=== PATIENT | female | born 1945 | race Caucasian/White ===

== ENCOUNTER 2019-03-10 08:48 | Inpatient (IN) | payer MEDICARE, SELFPAY ==
[2019-03-10] VITALS (8 sets, daily range): BP systolic 124–157; BP diastolic 51–75; PULSE 60–91; RESP 16–26; TEMP 36.8–37.4; O2SAT 98–100; BMI 33.5; BMI 32.5
--- NOTE | 2019-03-10 09:08 | CT_ITS ---
STUDY: CT BRAIN WITHOUT CONTRAST REASON FOR EXAM: Female, 73 years old. 2 week history of intermittent dizziness and nausea and vomiting. RADIATION DOSAGE (If Supplied By Facility): CTDIvol = ( 44.99 ) mGy, DLP = ( 812.98 ) mGycm TECHNIQUE: Transaxial CT imaging of the brain was performed without administration of intravenous contrast material. Individualized dose optimization techniques were used for this CT. COMPARISON: No relevant priors. FINDINGS: Normal soft tissue structures. Normal calvarium. There is mild cerebral atrophy with widening of the extra-axial spaces and ventricular dilatation. There are areas of decreased attenuation within the white matter tracts of the supratentorial brain, consistent with microvascular disease changes. 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 Normal brainstem. Normal cerebellum. There is no intracranial hemorrhage. There are no findings of an acute ischemic infarction. Normal visualized paranasal sinuses. CT/Brain/Head without Contrast IMPRESSION: Chronic involutional changes of the brain. Electronically Signed: Buddy Dela Cruz, at 10:33 EDT , Service support ,
--- NOTE | 2019-03-10 09:08 | EKG12_ITS ---
Test Reason : DIZZINESS Blood Pressure : / mmHG Vent. Rate : 094 BPM Atrial Rate : 094 BPM P-R Int : 148 ms QRS Dur : 082 ms QT Int : 336 ms P-R-T Axes : 059 012 031 degrees QTc Int : 420 ms Normal sinus rhythm Low voltage QRS Nonspecific ST abnormality Abnormal ECG Confirmed by MOMO SUNG, SANDRA ([id number]), editor at large GARRETT MAYORGA ([id number] on 03/13/2019 10:50:57 AM Referred By: Robbie Woodward Confirmed By:SANDRA BARR MD
--- NOTE | 2019-03-10 09:08 | RAD_ITS ---
STUDY: X-RAY CHEST REASON FOR EXAM: Female, 73 years old. 1 month history of dizziness. TECHNIQUE: Single AP portable view of the chest. COMPARISON: Comparison is made with prior study dated February 14, 2014. FINDINGS: EKG electrodes are seen. The lungs are clear and expanded. Scattered calcified granulomas. There is no demonstrated pleural abnormality. Normal size heart. Normal mediastinum and victor m. Normal visualized pulmonary arteries. There is atherosclerotic calcification of the aortic arch with tortuosity. There are diffuse degenerative changes of the visualized thoracic spine. Normal visualized ribs, clavicles, and shoulders. There is no demonstrated abnormality of the visualized soft tissue structures of the upper abdomen. RAD/Chest 1 View IMPRESSION: No acute abnormality is seen. Electronically Signed: Buddy Dela Cruz, at 10:33 EDT , Service support ,
--- NOTE | 2019-03-10 09:40 | ED.VIS.GEN ---
History of Present Illness Chief Complaint: Dizziness Narrative: Patient presenting for evaluation secondary to dizziness. Patient states that over the course the last 3 weeks she has been dealing with a dizziness. She states that associated with gait instability and a feeling of spinning. She reports that 3 weeks ago it was a relatively sudden onset it was associated with vomiting, but now it has basically been persistent over the course of the last 3 weeks. Patient denies any visual changes numbness or weakness. She denies any speech difficulty or confusion. She denies any headaches or head injuries. Patient does states that she feels that it gets somewhat better when she closes her eyes, but is not really changed by different positions. Patient thought initially that this was secondary to a change in her IBS medication. She typically was on dicyclomine, and went on Elavil. After the onset of the dizziness she went back on her dicyclomine, but it did not seem to alleviate the symptoms. Patient denies any history of hypertension hyperlipidemia diabetes heart attack stroke or smoking. Review of systems otherwise negative. Past Medical History - Allergies and Home Meds Allergies/Adverse Reactions: Allergies codeine Allergy (Verified 03/10/19 08:49) Nausea ANESTHETICS Allergy (Uncoded 03/10/19 08:49) Vomiting Primary Care Physician: Nohemi Cardoza MD [Primary Care Provider] - Past Medical History: - - Irritable bowel syndrome Surgical History: appendectomy, cholecystectomy, hysterectomy, tonsillectomy, - - Salpingoophorectomy Smoking Status: Never smoker - Family History Maternal Family History: Reports: No pertinent history Paternal Family History: Reports: No pertinent history Review of Systems All systems negative except as indicated General: Denies: Fever Eyes: Denies: Visual changes - bilaterally ENT: Denies: Bilateral ear pain Cardiovascular: Denies: Chest pain Respiratory: Denies: Dyspnea Gastrointestinal: Reports: Nausea, Vomiting Neurological: Reports: - - Dizziness. Denies: Headache, Weakness, Parasthesia, Numbness Physical Exam Vital Signs/Narrative: Vital Signs Temp Pulse Resp BP Pulse Ox 03/10/19 08:49 98.3 F 91 16 129/62 H 98 Inital Vital Signs reviewed: Yes General: Well nourished, Well developed, No Acute Distress Head: Normocephalic, Atraumatic Eyes: Perrl, EOMI ENT: Moist mucous membranes, No rhinorrhea, TM's clear Neck: Supple, Nontender Cardiovascular: Regular rate, Regular rhythm, No murmurs, - - 2+ radial pulses bilaterally symmetric Respiratory: No distress, CTA bilaterally, Chest nontender Abdomen: Soft, Nontender, Nondistended, Normal bowel sounds Back: Nontender, Normal Inspection Extremities: Nontender, No edema Skin: Normal color, No rash Neurological: Alert, Oriented x3, Cranial nerves II-XII grossly intact, Normal Strength, Normal Sensation, - - Cerebellar testing was normal including [id number], [id number], dysdiadochokinesia. Romberg was negative. Patient has no truncal ataxia. Patient has a slow deliberate gait. Psychological: Normal affect, Normal Mood Diagnostic/Tx/Re-eval - EKG Initial EKG Interpretation: - - Sinus rhythm of [address] changes no evidence of acute ischemia or arrhythmia normal T waves. - Medical Decision Making Patient presented secondary to dizziness. Physical exam demonstrates no abnormal cerebellar signs. Stroke work-up was obtained. CT brain shows chronic changes. CBC chemistry troponin were indicative of acute kidney injury with significant elevation of creatinine from baseline to above 3 with baseline 1.4. Patient was started on IV hydration. At this point I believe the patient requires admission. I discussed this with the hospitalist. ED Disposition - Plan for ED Patient: Disposition: Acute Care Hospital [facility] Diagnosis: Dizziness, Acute kidney injury
[2019-03-10 09:44] LABS: Absolute Lymphocyte Count 0.28 X10^3/uL (0.83-4.51); Absolute Neutrophil Count 7.1 X10^3/uL (2.0-7.7); Basophil# 0.03 X10^3/uL; Basophil% 0.4 % (0-1); Eosinophils% 1.2 % (0-5); Hematocrit 29.9 % (37-47); Hemoglobin 10.5 g/dL (12.0-15.0); Lymphocyte # 0.28 X10^3/ul (4.0); Lymphocyte % 3.3 % (19-41); Mean Corp Hgb Conc 35.1 g/dL (32-36); Mean Corpuscular Volume 91.2 fL (81-99); Mean Platelet Vol. 10.5 fl (6.2-12.0); Monocyte# 0.85 X10^3/uL; Monocyte% 10.1 % (0-10); NRBC Flagged by Analyzer 0 % (0-5); Neutrophil # 7.12 X10^3/uL (2.7-7.7); Neutrophil % 84.6 % (47-70); POSITIVE DIFFERENTIAL YES; POSITIVE MORPHOLOGY YES; Platelet Count 142 K/mm3 (150-450); RBC Distribution Width SD 43.2 fl (35.1-43.9); Red Blood Count 3.28 M/mm3 (4.2-5.4); White Blood Count 8.4 K/mm3 (4.4-11.0)
[2019-03-10 09:51] LABS: Differential Indicated SCAN CRITERIA MET
--- NOTE | 2019-03-10 09:54 | NURSING ---
CHEMISTRIES HEMOLIZED
[2019-03-10 09:56] LABS: International Normalized Ratio 1.3; Prothrombin Time (Protime)PT. 16.1 SECONDS (11.7-14.9)
[2019-03-10 09:57] LABS: Partial Thromboplast Time 34.4 Seconds (24.1-36.2)
[2019-03-10 10:06] LABS: Bedside Glucose 123 mg/dL (70-110)
[2019-03-10 11:08] LABS: Anion Gap 10 (5-15); BUN 38 mg/dL (7-18); BUN/Creat Ratio 10.3 RATIO (10-20); Calcium,Total 9.3 mg/dL (8.5-10.1); Chloride 104 mmol/L (98-107); Creatinine, Serum 3.68 mg/dL (0.55-1.02); EST Glomerular Filtration Rate 13 mL/min (>60); Est Glom Filt Rate - Afr Amer 15 mL/min (>60); Estimated Creatinine Clearance 11.41 ml/min; Glucose 131 mg/dL (74-106); Potassium 3.8 mmol/L (3.5-5.1); Sodium Level 133 mmol/L (136-145)
--- NOTE | 2019-03-10 11:47 | HP.PCM_ITS ---
Problem List (1) Acute kidney injury Status: Acute (2) Dizziness Status: Acute (3) Dehydration Status: Acute (4) Near syncope Status: Acute (5) Urinary tract infection Status: Acute (6) Chronic abdominal pain Status: Chronic History of Present Illness Date of Admission: 03/10/19 Chief Complaint: Dizziness, lightheadedness and chronic abdominal pain The patient is a 73 year old F with history of chronic abdominal pain for more than 5 years came to ER with dizziness, nausea off balance, gait instability and a spinning sensation for last 3 weeks. Patient also had one large vomiting, coffee-ground with black stool about 10 days ago. Patient denies blurry vision although she takes time/hesitation in her speech. Denies headache or slurring or previous history of TIA/stroke. Prior to that she has been on dicyclomine for chronic abdominal pain for about 5 years, thought to be IBS although she does not have frequent or persistent constipation or diarrhea. She has multiple abdominal surgery about 3 times for fibroid uterus, ovaries scar tissue. She had colonoscopy 2 times, mostly last one [address] Fletcher and no malignant polyp or cancer found. Dicyclomine recently changed to Elavil recently about to 3 months ago as she has been depressed for long time. She felt more dizzy, sleepy, nausea, constipation on Elavil. In ED, vitals were found stable although respiratory rate 24. H&H on her baseline 10.5/29.9. BUN/creatinine 38/3.68, baseline 13/1.2 in 01/2014. Sodium 133. CT brain unremarkable. Chest x-ray no acute abnormality seen. EKG normal sinus rhythm, low voltage QRS, QTC 420 ms at 94 bpm [] Past Medical History Past Medical History (Chronic Problems): Chronic Problems Chronic abdominal pain (Chronic) Allergies codeine Allergy (Verified 03/10/19 08:49) Nausea ANESTHETICS Allergy (Uncoded 03/10/19 08:49) Vomiting Home Medications: Ambulatory Orders Medication Instructions Recorded Fluticasone 0.05% [Flonase Nasal 1 spray NASAL DAILY 02/14/14 [place]] Naproxen [Naprosyn] 500 mg PO DAILY 02/14/14 Polyethylene Glycol 3350 [Miralax] 17 gm PO DAILY 02/14/14 Propranolol HCl [Inderal (Beta 40 mg PO DAILY 09/28/14 [place])] Psyllium [Metamucil] 1 packet PO DAILY 02/14/14 Dicyclomine HCl [Bentyl] 10 mg PO ACHS 03/10/19 Lansoprazole [Prevacid] 15 mg PO DAILY 03/10/19 Surgical History: appendectomy, cholecystectomy, hysterectomy, tonsillectomy, - - Salpingoophorectomy Psychiatric History: No pertinent psych hx NEUROCRITICAL CARE PHYSICIAN History: No pertinent NEUROCRITICAL CARE PHYSICIAN history Smoking Status: Never smoker - *Family History Maternal History Items: No pertinent history Paternal History Items: No pertinent history Review of Systems Constitutional: Denies: Chills, Fever, Weight Change HEENT: Denies: Head Aches, Sinus Congestion, Sinus Drainage Cardiovascular: Denies: Chest Pain, Palpitations Respiratory: Denies: Cough, Shortness of breath at rest, Sputum production Gastrointestinal: Denies: Abdominal Pain, Nausea, Vomiting Genitourinary: Reports: Dysuria - Burning micturition for about 1 week; at the end of the urine stream., Incontinence, - - Oliguria with dark urine for about 1 to 2-week Musculoskeletal: Denies: Joint Pain, Joint Tenderness Skin: Denies: Rash, Wounds Neurological: Denies: Numbness, Tingling, Focal weakness Psychiatric: Denies: Anxiety, Depression, Homicidal Ideations, Suicidal Ideations Hematologic/ Lymphatic: Denies: Easy Bruising, Easy Bleeding VTE Information - Inpt Only VTE Present on Admission: No VTE Mechan Device Prophylaxis: None VTE Pharm Prophylaxis ordered?: Yes Patient Problems: Active and Suspected Problems Dizziness (Acute) Acute kidney injury (Acute) - Physical Exam Vitals/I&O's: Vital Signs Temp Pulse Resp BP Pulse Ox 98.3 F 88 24 H 131/70 H 98 03/10/19 08:49 03/10/19 10:30 03/10/19 10:30 03/10/19 10:30 03/10/19 10:30 Oxygen Delivery Method Room Air Weight: 195 lb Body Mass Index (BMI) 33.5 Finger Stick Blood Glucose 123 General: Alert, Oriented x3, Cooperative HEENT: Atraumatic, PERRLA, EOMI, Normocephalic Neck: Supple, No JVD, Negative Carotid Bruits Lungs: Clear to auscultation, Normal air movement, No rhonchi, No wheeze, No rales Cardiovascular: Regular rate, Regular Rhythm, Normal S1, Normal S2, No murmurs Abdomen: Bowel Sounds Present, Soft, Non Tender, Non-Distended, Hypoactive Bowel Sounds Extremities: No edema, Capillary Refill Less than 3 Seconds Skin: No rashes, No breakdown Musculoskeletal: No Tenderness to Palpation of Joints or Extremities, Arthritic Changes Neurological: Cranial nerves II-XII grossly intact, Deep Tendon Reflexes 2+/4 and Symmetrical, Neuro grossly intact Psych/Mental Status: Normal Affect, Appropriate Laboratory Results 03/10/19 09:35: WBC 8.4, RBC 3.28 L, Hgb 10.5 L, Hct 29.9 L, MCV 91.2, MCH 32.0, MCHC 35.1, RDW Std Deviation 43.2, RDW Coeff of Ricky 13.0, Plt Count 142 L, MPV 10.5, Immature Gran % (Auto) 0.400, Neut % (Auto) 84.6 H, Lymph % (Auto) 3.3 L, Stanton % (Auto) 10.1 H, Eos % (Auto) 1.2, Baso % (Auto) 0.4, Absolute Neuts (auto) 7.1, Absolute Lymphs (auto) 0.28 L, Nucleated RBC % 0, Differential Comment COMMENT 03/10/19 09:35: PT 16.1 H, INR 1.3, APTT 34.4 03/10/19 09:35: Sodium Cancelled, Potassium Cancelled, Chloride Cancelled, Carbon Dioxide Cancelled, Anion Gap Cancelled, BUN Cancelled, Creatinine Cancelled, Estim Creat Clear Calc Cancelled, Est GFR (MDRD) Af Amer Cancelled, Est GFR (MDRD) Non-Af Cancelled, BUN/Creatinine Ratio Cancelled, Glucose Cancelled, Calcium Cancelled, Troponin I Cancelled 03/10/19 09:57: POC Glucose 123 H 03/10/19 10:20: Sodium 133 L, Potassium 3.8, Chloride 104, Carbon Dioxide 19.0 L , Anion Gap 10, BUN 38 H, Creatinine 3.68 H, Estim Creat Clear Calc 11.41, Est GFR (MDRD) Af Amer 15 L, Est GFR (MDRD) Non-Af 13 L, BUN/Creatinine Ratio 10.3, Glucose 131 H, Calcium 9.3, Troponin I < 0.015 Current Medications Sodium Chloride () 1,000 mls @ 250 mls/hr IV .Q4H [facility] Assessment/Plan All Active Problems Dizziness (Acute) Acute kidney injury (Acute) Near syncope (Acute) Dehydration (Acute) Urinary tract infection (Acute) The patient is a 73 year old F with history of chronic abdominal pain for more than 5 years came to ER with dizziness, nausea off balance, gait instability and a spinning sensation for last 3 weeks. Patient also had one large vomiting, coffee-ground with black stool about 10 days ago. Patient denies blurry vision although she takes time/hesitation in her speech. Denies headache or slurring or previous history of TIA/stroke. In ED, vitals were found stable although respiratory rate 24. H&H on her baseline 10.5/29.9. BUN/creatinine 38/3.68, baseline 13/1.2 in 01/2014. Sodium 133. CT brain unremarkable. Chest x-ray no acute abnormality seen. EKG normal sinus rhythm, low voltage QRS, QTC 420 ms at 94 bpm [] 1. Dizziness, lightheadedness, near syncope mostly secondary to dehydration/Elavil side effect: Patient is being admitted on [facility] telemetry. CT head was unremarkable. MRI brain ordered. Patient does not have TIA or stroke in the past. NIH stroke scale 0. 2. Acute kidney injury with oliguria with possible UTI with non-anion gap metabolic acidosis: BUN/creatinine seems more like ATN. Her previous BUN/creatinine was in January 2014. IV fluid normal saline at 250 mils per hour. Sodium 133, chloride 114 bicarb 19 with anion gap 11, non-anion gap metabolic acidosis. Consult nephrology. UA, urine culture with urine lites with a straight cath ordered. After urine collection, start on IV ceftriaxone empirically. She was last admitted in January 2014 for acute renal insufficiency from acute cystitis. At that time urine culture shows mixed gram-positive and gram- negative organized suggestive of contamination. 3. Chronic abdominal pain with no definite pattern of constipation/diarrhea with possible recent GI bleed: Stool for occult blood, leukocytes and enteric bacterial D panel ordered. Currently abdominal pain is resolved and will observe. Patient will need GI to further evaluate her chronic abdominal pain. I think it is most likely secondary to scar tissue from multiple abdominal surgeries in the past. 4. Other chronic comorbidities include multiple abdominal surgeries, anxiety and depression: Home medication reconciliation DVT prophylaxis: On Lovenox 30 g subcu daily. Laboratory Results 03/10/19 09:35: WBC 8.4, RBC 3.28 L, Hgb 10.5 L, Hct 29.9 L, MCV 91.2, MCH 32.0, MCHC 35.1, RDW Std Deviation 43.2, RDW Coeff of Ricky 13.0, Plt Count 142 L, MPV 10.5, Immature Gran % (Auto) 0.400, Neut % (Auto) 84.6 H, Lymph % (Auto) 3.3 L, Stanton % (Auto) 10.1 H, Eos % (Auto) 1.2, Baso % (Auto) 0.4, Absolute Neuts (auto) 7.1, Absolute Lymphs (auto) 0.28 L, Nucleated RBC % 0, Differential Comment COMMENT 03/10/19 09:35: PT 16.1 H, INR 1.3, APTT 34.4 03/10/19 09:57: POC Glucose 123 H 03/10/19 10:20: Sodium 133 L, Potassium 3.8, Chloride 104, Carbon Dioxide 19.0 L , Anion Gap 10, BUN 38 H, Creatinine 3.68 H, Estim Creat Clear Calc 11.41, Est GFR (MDRD) Af Amer 15 L, Est GFR (MDRD) Non-Af 13 L, BUN/Creatinine Ratio 10.3, Glucose 131 H, Calcium 9.3, Troponin I < 0.015 03/10/19 10:20: Magnesium 1.8 Code Visit Inpatient E&M: 28345 Init Hosp L3
--- NOTE | 2019-03-10 11:47 | NURSING ---
MED SURG BAILEE MONICA, DIZZINESS
[2019-03-10 13:22] LABS: Magnesium 1.8 mg/dL (1.6-2.6)
[2019-03-10] MEDS: 0.9% Normal Saline 1,000 ML 250 ML IV (13:33)
--- NOTE | 2019-03-10 13:57 | MRI_ITS ---
STUDY: MRI BRAIN WITHOUT CONTRAST REASON FOR EXAM: Female, 73 years old. Dizziness and headache TECHNIQUE: Standardized multiplanar fat and water weighted pulse sequences were obtained. COMPARISON: CT of the brain March 10, 2019 FINDINGS: Mild atrophy and moderate periventricular white matter ischemic changes without mass effect or restricted diffusion. Prominent perivascular space noted within the left medial temporal lobe Normal bilateral basal ganglia. Normal thalami. There is no extra-axial fluid accumulation. Normal flow voids within the major intracranial circulation suggesting patency by spin echo criteria. Incidental finding of small caliber right vertebral artery which may represent normal developmental variant. Empty sella deformity of uncertain clinical significance. Normal, infundibular stalk, optic chiasm and hypothalamus. Normal tectal plate and pineal gland. Normal midbrain, deanne and medulla. Normal cerebellum. Normal basal cisterns. Normal bilateral temporal bones. Normal bilateral internal auditory canals. No demonstrated orbital abnormality, within the constraints of a routine brain study. There is minor mucosal thickening of the right maxillary and bilateral ethmoid sinuses.. Normal calvarium and skull base. Normal visualized soft tissue structures. Normal visualized upper cervical spine. MRI/Brain without Contrast IMPRESSION: Moderate periventricular white matter ischemic changes without evidence for acute infarct. Empty sella deformity of uncertain clinical significance Electronically Signed: Nixon Santana MD at 15:49 EDT , Service support ,
[2019-03-10 16:43] LABS: Mucous, Urine 0 SEEN /hpf (<or=2+)
[2019-03-10 16:46] LABS: Color, Urine Yellow (Yellow); Glucose, Dipstick Normal (Normal); Ketone-Dipstick 5 mg/dl (Negative); Leukocyte Esterase-Dipstick 500 /ul (Negative); Nitrite-Dipstick Positive (Negative); Occult Blood-Urine 50 /ul (Negative); Protein-Dipstick 100 mg/dl (Negative); Urine Bilirubin Dipstick Negative (Negative); Urine Clarity Cloudy (Clear); Urine Urobilinogen Normal (Normal)
[2019-03-10] MEDS: Polyethylene Glycol 3350 17 GM PACKET PO (16:47)
[2019-03-10] MEDS: Psyllium 1 PACKET PO (16:47)
[2019-03-10] MEDS: Propranolol 40 MG Tablet PO (16:49)
[2019-03-10] MEDS: Acetaminophen 325 MG Tablet 650 MG PO (16:51)
[2019-03-10] MEDS: Ceftriaxone 1 GM/50 ML BAG IV (16:51)
[2019-03-10 16:57] LABS: Squamous Epithelial Cells - UA 0-5 SEEN /hpf (5-10); Transitional Epithelial - Ur 0-5 SEEN /hpf (0-5)
[2019-03-10 16:58] LABS: Bacteria 2+ /hpf (None Seen); Red Blood Cells-Urine 0-5 SEEN /hpf (0-5)
[2019-03-10 16:59] LABS: White Blood Cells 50-100 SEEN /hpf (0-5)
[2019-03-10 17:06] LABS: Urine Chloride 29 mmol/L (Not Establ.); Urine Sodium 37 mmol/L (Not Establ.)
[2019-03-10] MEDS: 0.9% Normal Saline 1,000 ML 150 ML IV (18:19)
[2019-03-10 20:49] LABS: Hematocrit 28.5 % (37-47); Hemoglobin 9.7 g/dL (12.0-15.0)
[2019-03-11] MEDS: 0.9% Normal Saline 1,000 ML 150 ML IV ×2 (00:55→07:22)
[2019-03-11 02:00] VITALS: BP 154/52; PULSE 87; RESP 16; TEMP 37.1; O2SAT 99
[2019-03-11] MEDS: Acetaminophen 325 MG Tablet 650 MG PO ×2 (02:06→15:53)
[2019-03-11 05:57] LABS: Absolute Lymphocyte Count 0.31 X10^3/uL (0.83-4.51); Absolute Neutrophil Count 5.1 X10^3/uL (2.0-7.7); Basophil# 0.02 X10^3/uL; Basophil% 0.3 % (0-1); Eosinophil# 0.13 X10^3/uL; Eosinophils% 2.1 % (0-5); Hematocrit 25.7 % (37-47); Hemoglobin 8.7 g/dL (12.0-15.0); Lymphocyte # 0.31 X10^3/ul (4.0); Lymphocyte % 4.9 % (19-41); Mean Corp Hgb Conc 33.9 g/dL (32-36); Mean Corpuscular Hgb 31.4 pg (27.0-32.0); Mean Corpuscular Volume 92.8 fL (81-99); Mean Platelet Vol. 10.7 fl (6.2-12.0); Monocyte# 0.76 X10^3/uL; NRBC Flagged by Analyzer 0 % (0-5); Neutrophil # 5.08 X10^3/uL (2.7-7.7); Neutrophil % 80.2 % (47-70); POSITIVE DIFFERENTIAL YES; Platelet Count 111 K/mm3 (150-450); RBC Distribution Width CV 13.2 % (11.6-14.6); RBC Distribution Width SD 45.1 fl (35.1-43.9); Red Blood Count 2.77 M/mm3 (4.2-5.4); White Blood Count 6.3 K/mm3 (4.4-11.0)
[2019-03-11 06:14] LABS: Differential Indicated SCAN CRITERIA MET
[2019-03-11 06:38] LABS: Anion Gap 9 (5-15); BUN 33 mg/dL (7-18); BUN/Creat Ratio 9.7 RATIO (10-20); Calcium,Total 7.7 mg/dL (8.5-10.1); Chloride 109 mmol/L (98-107); EST Glomerular Filtration Rate 14 mL/min (>60); Est Glom Filt Rate - Afr Amer 17 mL/min (>60); Estimated Creatinine Clearance 12.35 ml/min; Glucose 183 mg/dL (74-106); Potassium 3.4 mmol/L (3.5-5.1); Sodium Level 136 mmol/L (136-145); Thyroid Stim Hormone (TSH) 0.44 uIU/mL (0.358-3.74)
[2019-03-11 07:44] VITALS: O2SAT 96
--- NOTE | 2019-03-11 08:14 | US_ITS ---
STUDY: RENAL ULTRASOUND - COMPLETE REASON FOR EXAM: Female, 73 years old. Right flank pain and UTI. TECHNIQUE: Ultrasound evaluation of the kidneys was performed with real-time and static [place]-scale imaging. COMPARISON: None. FINDINGS: RIGHT KIDNEY: Normal location of the right kidney, which is normal in size. The right kidney measures 12.1 cm x 5.8 cm x 7.5 cm. There is a normal cortex of the right kidney. The renal cortex measures 1.7 cm. There is no right renal mass or cyst. There are no right renal calculi. There is mild hydronephrosis of the right kidney. DISTAL RIGHT URETER: There is non-visualization of the distal right ureter. There is no demonstrated right ureterovesical junction calculus. There is a visualized right ureteral jet. LEFT KIDNEY: Normal location of the left kidney, which is normal in size. The left kidney measures 11.1 cm x 5.4 cm x 6.1 cm. There is a normal cortex of the left kidney. The renal cortex measures 1.9 cm. There is no left renal mass or cyst. There are no left renal calculi. There is mild hydronephrosis of the left kidney. DISTAL LEFT URETER: There is non-visualization of the distal left ureter. There is no demonstrated left ureterovesical junction calculus. There is no demonstrated left ureteral jet. BLADDER: The distended urinary bladder has a volume of 36.6 ml. There is a normal wall thickness of the distended urinary bladder. There is no demonstrated mass within the urinary bladder. There are no demonstrated bladder calculi. US/Kidney and Bladder IMPRESSION: Mild degree of bilateral hydronephrosis. Electronically Signed: Buddy Dela Cruz, at 14:37 EDT , Service support ,
--- NOTE | 2019-03-11 08:15 | PCM.PN.HOSP ---
Patient Problems: Active and Suspected Problems Dizziness (Acute) Acute kidney injury (Acute) Subjective: No fever or chills. T-max 99.3 Fahrenheit. Blood pressure stable. Hemodynamically stable. Patient had right-sided flank pain couple days ago. No history of his stone or stricture or urology problem in the past. Total urine output 1050 mill since admission. Vitals/I&O's: Vital Signs Temp Pulse Resp BP Pulse Ox 98.7 F 87 16 154/52 H 99 03/11/19 02:00 03/11/19 02:00 03/11/19 02:00 03/11/19 02:00 03/11/19 02:00 Oxygen Delivery Method Room Air Weight: 189 lb 6.033 oz Body Mass Index (BMI) 32.5 Finger Stick Blood Glucose 123 Intake and Output for Last 24 Hours 03/09/19 03/10/19 03/11/19 23:59 23:59 23:59 Intake Total 1860 / 1860 2357.5 / 2357.5 Output Total 202 / 202 850 / 850 Balance 1658 / 1658 1507.5 / 1507.5 General: Alert, Oriented x3, Cooperative HEENT: Atraumatic, PERRLA, EOMI, Normocephalic Neck: Supple, No JVD, Negative Carotid Bruits Lungs: Clear to auscultation, Normal air movement, No rhonchi, No wheeze, No rales Cardiovascular: Regular rate, Regular Rhythm, Normal S2, No murmurs Abdomen: Bowel Sounds Present, Soft, Non Tender, Non-Distended Extremities: No edema, Capillary Refill Less than 3 Seconds Skin: No rashes, No breakdown Musculoskeletal: No Tenderness to Palpation of Joints or Extremities, Arthritic Changes Neurological: Cranial nerves II-XII grossly intact, Deep Tendon Reflexes 2+/4 and Symmetrical, Neuro grossly intact, Motor Exam 5/5 strength throughout Psych/Mental Status: Normal Affect, Appropriate Laboratory Results 03/10/19 09:35: WBC 8.4, RBC 3.28 L, Hgb 10.5 L, Hct 29.9 L, MCV 91.2, MCH 32.0, MCHC 35.1, RDW Std Deviation 43.2, RDW Coeff of Ricky 13.0, Plt Count 142 L, MPV 10.5, Immature Gran % (Auto) 0.400, Neut % (Auto) 84.6 H, Lymph % (Auto) 3.3 L, [place] % (Auto) 10.1 H, Eos % (Auto) 1.2, Baso % (Auto) 0.4, Absolute Neuts (auto) 7.1, Absolute Lymphs (auto) 0.28 L, Nucleated RBC % 0, Differential Comment COMMENT 03/10/19 09:35: PT 16.1 H, INR 1.3, APTT 34.4 03/10/19 09:35: Sodium Cancelled, Potassium Cancelled, Chloride Cancelled, Carbon Dioxide Cancelled, Anion Gap Cancelled, BUN Cancelled, Creatinine Cancelled, Estim Creat Clear Calc Cancelled, Est GFR (MDRD) Af Amer Cancelled, Est GFR (MDRD) Non-Af Cancelled, BUN/Creatinine Ratio Cancelled, Glucose Cancelled, Calcium Cancelled, Troponin I Cancelled 03/10/19 09:57: POC Glucose 123 H 03/10/19 10:20: Sodium 133 L, Potassium 3.8, Chloride 104, Carbon Dioxide 19.0 L, Anion Gap 10, BUN 38 H, Creatinine 3.68 H, Estim Creat Clear Calc 11.41, Est GFR (MDRD) Af Amer 15 L, Est GFR (MDRD) Non-Af 13 L, BUN/Creatinine Ratio 10.3, Glucose 131 H, Calcium 9.3, Troponin I < 0.015 03/10/19 10:20: Magnesium 1.8 03/10/19 16:28: Urine Creatinine 68.70 03/10/19 16:28: Ur Random Sodium 37, Urine Potassium 15.0, Urine Chloride 29 03/10/19 16:28: Urine Color Yellow, Urine Clarity Cloudy, Urine pH 6.0, Ur Specific [place] 1.010, Urine Protein 100 H, Urine Glucose (UA) Normal, Urine Ketones 5 H, Urine Occult Blood 50 H, Urine Nitrite Positive H, Urine Bilirubin Negative, Urine Urobilinogen Normal, Ur Leukocyte Esterase 500 H, Urine RBC 0-5 SEEN, Urine WBC 50-100 SEEN, Ur Squamous Epith Cells 0-5 SEEN, Ur Transition Epith Cell 0-5 SEEN, Urine Bacteria 2+, Urine Mucus 0 SEEN 03/10/19 20:15: Hgb 9.7 L, Hct 28.5 L 03/11/19 05:22: WBC 6.3, RBC 2.77 L, Hgb 8.7 L, Hct 25.7 L, MCV 92.8, MCH 31.4, MCHC 33.9, RDW Std Deviation 45.1 H, RDW Coeff of Ricky 13.2, Plt Count 111 L, MPV 10.7, Immature Gran % (Auto) 0.500, Neut % (Auto) 80.2 H, Lymph % (Auto) 4.9 L, [place] % (Auto) 12.0 H, Eos % (Auto) 2.1, Baso % (Auto) 0.3, Absolute Neuts (auto) 5.1, Absolute Lymphs (auto) 0.31 L, Nucleated RBC % 0 03/11/19 05:22: Sodium 136, Potassium 3.4 L, Chloride 109 H, Carbon Dioxide 18.0 L, Anion Gap 9, BUN 33 H, Creatinine 3.40 H, Estim Creat Clear Calc 12.35, Est GFR (MDRD) Af Amer 17 L, Est GFR (MDRD) Non-Af 14 L, BUN/Creatinine Ratio 9.7 L, Glucose 183 H, Calcium 7.7 L, TSH 0.44 Current Medications Acetaminophen (Tylenol) 650 mg PO Q6H PRN PRN PRN Reason: Mild Pain (1-3)/Temp > 100.7 F Last Admin: 03/11/19 02:06 Dose: 650 mg Documented by: Albuterol Sulfate (Ventolin Aerosols) 2.5 mg INHALATION Q2H PRN PRN PRN Reason: Shortness of Breath/Wheezing Dextrose (D50w Syringe) 0 gm IV X1 PRN; Protocol PRN Reason: Hypoglycemia Fluticasone Propionate (Flonase Nasal [place]) 1 spray NASAL DAILY [facility] Glucagon () 1 mg IM .X1 PRN PRN Reason: Hypoglycemia Sodium Chloride () 1,000 mls @ 150 mls/hr IV .Q6H40M [facility] Last Admin: 03/11/19 07:22 Dose: 150 mls/hr Documented by: Ceftriaxone Sodium (Rocephin) 1 gm in 50 mls @ 100 mls/hr IV Q24 [facility] Last Infusion: 03/10/19 17:26 Dose: Infused Documented by: Sodium Chloride () 250 mls @ 15 mls/hr IV .[id number] PRN PRN Reason: Saline Flush Ondansetron HCl (Zofran) 4 mg IV Q8H PRN PRN PRN Reason: NAUSEA/VOMITING Pantoprazole Sodium (Protonix) 40 mg PO DAILY [facility] Polyethylene Glycol (Miralax) 17 gm PO DAILY [facility] Last Admin: 03/10/19 16:47 Dose: 17 gm Documented by: Promethazine HCl (Phenergan) 12.5 mg IV Q6H PRN PRN PRN Reason: Breakthrough nausea/vomiting Propranolol HCl (Inderal) 40 mg PO DAILY [facility] Last Admin: 03/10/19 16:49 Dose: 40 mg Documented by: Psyllium Hydrophilic Mucilloid (Metamucil) 1 packet PO DAILY [facility] Last Admin: 03/10/19 16:47 Dose: 1 packet Documented by: Sodium Chloride () 10 - 40 ml IV UD PRN PRN Reason: SALINE FLUSH Medical Necessity - Tobacco Use Smoking Status: Never smoker Assessment/Plan All Active Problems Dizziness (Acute) Acute kidney injury (Acute) Near syncope (Acute) Dehydration (Acute) Urinary tract infection (Acute) The patient is a 73 year old F with history of chronic abdominal pain for more than 5 years came to ER with dizziness, nausea off balance, gait instability and a spinning sensation for last 3 weeks. Patient also had one large vomiting, coffee-ground with black stool about 10 days ago. Patient denies blurry vision although she takes time/hesitation in her speech. Denies headache or slurring or previous history of TIA/stroke. In ED, vitals were found stable although respiratory rate 24. H&H on her baseline 10.5/29.9. BUN/creatinine 38/3.68, baseline 13/1.2 in 01/2014. Sodium 133. CT brain unremarkable. Chest x-ray no acute abnormality seen. EKG normal sinus rhythm, low voltage QRS, QTC 420 ms at 94 bpm [] 1. Dizziness, lightheadedness, near syncope mostly secondary to dehydration/Elavil side effect: Patient is being admitted on Medr telemetry. CT head was unremarkable. MRI brain ordered. Patient does not have TIA or stroke in the past. NIH stroke scale 0. MRI brain reported no evidence of acute infarct. Empty sella deformity of uncertain clinical significance. 2. Acute kidney injury with oliguria with possible UTI with non-anion gap metabolic acidosis: BUN/creatinine seems more like ATN. Her previous BUN/creatinine was in January 2014. Sodium 133, chloride 114 bicarb 19 with anion gap 11, non-anion gap metabolic acidosis. Urine lites, urine sodium 37, chloride 29 and FENa 1.2 is more suggestive of ATN. Discussed with the wet finisher. UA is positive of pyuria, nitrite, LE 500. Urine culture pending. Kidneys and bladder ultrasound ordered. On IV ceftriaxone empirically. 3. Chronic abdominal pain with no definite pattern of constipation/diarrhea with possible recent GI bleed: Stool for occult blood, leukocytes and enteric bacterial D panel ordered. Currently abdominal pain is resolved and will observe. Patient will need GI to further evaluate her chronic abdominal pain. I think it is most likely secondary to scar tissue from multiple abdominal surgeries in the past. Enteric stool test are pending 4. Other chronic comorbidities include multiple abdominal surgeries, anxiety and depression: Home medication reconciliation 5. Acute on anemia of chronic disease: The drop in hemoglobin from 10.5/30 to 8.7/25. Patient does not have obvious external bleeding. Lovenox discontinued. Also dropping rootlet count from 140-111. Stool for occult blood already ordered. DVT prophylaxis on bilateral SCDs Management plan discussed with the patient and her . Laboratory Results 03/10/19 16:28: Urine Creatinine 68.70 03/10/19 16:28: Ur Random Sodium 37, Urine Potassium 15.0, Urine Chloride 29 03/10/19 16:28: Urine Color Yellow, Urine Clarity Cloudy, Urine pH 6.0, Ur Specific [place] 1.010, Urine Protein 100 H, Urine Glucose (UA) Normal, Urine Ketones 5 H, Urine Occult Blood 50 H, Urine Nitrite Positive H, Urine Bilirubin Negative, Urine Urobilinogen Normal, Ur Leukocyte Esterase 500 H, Urine RBC 0-5 SEEN, Urine WBC 50-100 SEEN, Ur Squamous Epith Cells 0-5 SEEN, Ur Transition Epith Cell 0-5 SEEN, Urine Bacteria 2+, Urine Mucus 0 SEEN 03/10/19 20:15: Hgb 9.7 L, Hct 28.5 L 03/11/19 05:22: WBC 6.3, RBC 2.77 L, Hgb 8.7 L, Hct 25.7 L, MCV 92.8, MCH 31.4, MCHC 33.9, RDW Std Deviation 45.1 H, RDW Coeff of Ricky 13.2, Plt Count 111 L, MPV 10.7, Immature Gran % (Auto) 0.500, Neut % (Auto) 80.2 H, Lymph % (Auto) 4.9 L, [place] % (Auto) 12.0 H, Eos % (Auto) 2.1, Baso % (Auto) 0.3, Absolute Neuts (auto) 5.1, Absolute Lymphs (auto) 0.31 L, Nucleated RBC % 0 03/11/19 05:22: Sodium 136, Potassium 3.4 L, Chloride 109 H, Carbon Dioxide 18.0 L, Anion Gap 9, BUN 33 H, Creatinine 3.40 H, Estim Creat Clear Calc 12.35, Est GFR (MDRD) Af Amer 17 L, Est GFR (MDRD) Non-Af 14 L, BUN/Creatinine Ratio 9.7 L, Glucose 183 H, Calcium 7.7 L, TSH 0.44 Code Visit Inpatient E&M: 64235 Subs Hosp L3
[2019-03-11 09:05] VITALS: BP 141/76; PULSE 76; RESP 16; TEMP 36.7; O2SAT 97
--- NOTE | 2019-03-11 09:09 | PCM.CONS.R ---
Consultation - Renal PCP/ Referring MD: Requesting physician: Dr. Woodward Primary care physician: Nohemi Cardoza MD Reason for Consultation:: Acute kidney injury - History of Present Illness History of Present Illness: The patient is a 73 year old F with past history of chronic abdominal pain and GERD. The patient presented to the hospital on 03/10 with abdominal pain, nausea and dizziness. She was found to have SCr of 3.68 mg/dL on admission. There is no prior history of CKD. Her last available SCr was from 2013, and it was 1.2 mg/dL. The patient attributes her increasing abdominal pain and other GI symptoms to switching from dicyclomine to Elavil about 1 month ago. The patient feels a bit better today. Her abdominal pain is mainly in the RLQ. She denies current nausea. However, her oral intake was poor prior to admission for 3-4 days because of abdominal pain and nausea. She did also have loose BM prior to admission which has resolved. She denies lower urinary tract symptoms. She does take naproxen on a regular basis. In the past week, she has also taken additional Advil because of the increase abdominal pain. The patient denies recent IV contrast exposure. There is o current CP, SOB, or edema. - Allergies Allergies: Allergies codeine Allergy (Verified 03/10/19 08:49) Nausea ANESTHETICS Allergy (Uncoded 03/10/19 08:49) Vomiting - Current Medications Current Medications: Current Medications Acetaminophen (Tylenol) 650 mg PO Q6H PRN PRN PRN Reason: Mild Pain (1-3)/Temp > 100.7 F Last Admin: 03/11/19 02:06 Dose: 650 mg Documented by: Albuterol Sulfate (Ventolin Aerosols) 2.5 mg INHALATION Q2H PRN PRN PRN Reason: Shortness of Breath/Wheezing Dextrose (D50w Syringe) 0 gm IV X1 PRN; Protocol PRN Reason: Hypoglycemia Fluticasone Propionate (Flonase Nasal [place]) 1 spray NASAL DAILY [facility] Glucagon () 1 mg IM .X1 PRN PRN Reason: Hypoglycemia Sodium Chloride () 1,000 mls @ 150 mls/hr IV .Q6H40M [facility] Last Admin: 03/11/19 07:22 Dose: 150 mls/hr Documented by: Ceftriaxone Sodium (Rocephin) 1 gm in 50 mls @ 100 mls/hr IV Q24 [facility] Last Infusion: 03/10/19 17:26 Dose: Infused Documented by: Sodium Chloride () 250 mls @ 15 mls/hr IV .[id number] PRN PRN Reason: Saline Flush Ondansetron HCl (Zofran) 4 mg IV Q8H PRN PRN PRN Reason: NAUSEA/VOMITING Pantoprazole Sodium (Protonix) 40 mg PO DAILY [facility] Polyethylene Glycol (Miralax) 17 gm PO DAILY [facility] Last Admin: 03/10/19 16:47 Dose: 17 gm Documented by: Promethazine HCl (Phenergan) 12.5 mg IV Q6H PRN PRN PRN Reason: Breakthrough nausea/vomiting Propranolol HCl (Inderal) 40 mg PO DAILY [facility] Last Admin: 03/10/19 16:49 Dose: 40 mg Documented by: Psyllium Hydrophilic Mucilloid (Metamucil) 1 packet PO DAILY [facility] Last Admin: 03/10/19 16:47 Dose: 1 packet Documented by: Sodium Chloride () 10 - 40 ml IV UD PRN PRN Reason: SALINE FLUSH - Past Medical History Past Medical History (Chronic Problems): Chronic Problems Chronic abdominal pain (Chronic) - Past Surgical History Surgical History: appendectomy, cholecystectomy, hysterectomy, tonsillectomy, - - Salpingoophorectomy - Social History Smoking Status: Never smoker - Family History Maternal History Items: No pertinent history Paternal History Items: No pertinent history Review of Systems Constitutional: Reports: Anorexia, Weakness. Denies: Chills, Fever Eyes: Denies: Blurred vision, Pain, Redness HEENT: Reports: Head Aches - occasional. Denies: Difficulty Hearing, Difficulty Swallowing, Sinus Drainage, Sore Throat Cardiovascular: Denies: Chest Pain, Edema, Palpitations Respiratory: Denies: Cough, Shortness of breath at rest, Sputum production Gastrointestinal: Reports: Abdominal Pain, Diarrhea - prior to admit, Nausea, Vomiting - prior to admit Genitourinary: Denies: Dysuria, Frequency, Hematuria, Hesitancy, Incontinence, Urgency Gynecological: Denies: Breast symptoms, Vaginal discharge Musculoskeletal: Denies: Joint Pain, Joint Tenderness Skin: Denies: Rash, Wounds Neurological: Denies: Numbness, Tingling, Focal weakness Psychiatric: Denies: Anxiety, Depression, Homicidal Ideations, Suicidal Ideations Hematologic/ Lymphatic: Denies: Easy Bruising, Easy Bleeding Patient Problems: Active and Suspected Problems Dizziness (Acute) Acute kidney injury (Acute) - Physical Exam Vitals/I&O's: Vital Signs Temp Pulse Resp BP Pulse Ox 98.1 F 76 16 141/76 H 97 03/11/19 09:05 03/11/19 09:05 03/11/19 09:05 03/11/19 09:05 03/11/19 09:05 Oxygen Delivery Method Room Air Weight: 85.9 kg Body Mass Index (BMI) 32.5 Finger Stick Blood Glucose 123 Intake and Output for Last 24 Hours 03/09/19 03/10/19 03/11/19 23:59 23:59 23:59 Intake Total 1860 / 1860 2357.5 / 2357.5 Output Total 850 / 850 Balance 1658 / 1658 1507.5 / 1507.5 General: Alert, Oriented x3, Cooperative HEENT: Atraumatic, PERRLA, EOMI Oral: Dry Mucosa Neck: Supple, No JVD Lungs: Clear to auscultation Cardiovascular: Regular rate, Regular Rhythm, Normal S1, Normal S2 Abdomen: Bowel Sounds Present, Soft, Tender - mainly RLQ. No gaurding or rebound. Extremities: No clubbing, No cyanosis, No edema Skin: No rashes Musculoskeletal: No Tenderness to Palpation of Joints or Extremities Lymphatic: No Cervical, Supraclavicular, or Inguinal Adenopathy Neurological: Cranial nerves II-XII grossly intact Psych/Mental Status: Normal Affect Laboratory Results 03/10/19 09:35: WBC 8.4, RBC 3.28 L, Hgb 10.5 L, Hct 29.9 L, MCV 91.2, MCH 32.0, MCHC 35.1, RDW Std Deviation 43.2, RDW Coeff of Ricky 13.0, Plt Count 142 L, MPV 10.5, Immature Gran % (Auto) 0.400, Neut % (Auto) 84.6 H, Lymph % (Auto) 3.3 L, [place] % (Auto) 10.1 H, Eos % (Auto) 1.2, Baso % (Auto) 0.4, Absolute Neuts (auto) 7.1, Absolute Lymphs (auto) 0.28 L, Nucleated RBC % 0, Differential Comment COMMENT 03/10/19 09:35: PT 16.1 H, INR 1.3, APTT 34.4 03/10/19 09:35: Sodium Cancelled, Potassium Cancelled, Chloride Cancelled, Carbon Dioxide Cancelled, Anion Gap Cancelled, BUN Cancelled, Creatinine Cancelled, Estim Creat Clear Calc Cancelled, Est GFR (MDRD) Af Amer Cancelled, Est GFR (MDRD) Non-Af Cancelled, BUN/Creatinine Ratio Cancelled, Glucose Cancelled, Calcium Cancelled, Troponin I Cancelled 03/10/19 09:57: POC Glucose 123 H 03/10/19 10:20: Sodium 133 L, Potassium 3.8, Chloride 104, Carbon Dioxide 19.0 L, Anion Gap 10, BUN 38 H, Creatinine 3.68 H, Estim Creat Clear Calc 11.41, Est GFR (MDRD) Af Amer 15 L, Est GFR (MDRD) Non-Af 13 L, BUN/Creatinine Ratio 10.3, Glucose 131 H, Calcium 9.3, Troponin I < 0.015 03/10/19 10:20: Magnesium 1.8 03/10/19 16:28: Urine Creatinine 68.70 03/10/19 16:28: Ur Random Sodium 37, Urine Potassium 15.0, Urine Chloride 29 03/10/19 16:28: Urine Color Yellow, Urine Clarity Cloudy, Urine pH 6.0, Ur Specific [place] 1.010, Urine Protein 100 H, Urine Glucose (UA) Normal, Urine Ketones 5 H, Urine Occult Blood 50 H, Urine Nitrite Positive H, Urine Bilirubin Negative, Urine Urobilinogen Normal, Ur Leukocyte Esterase 500 H, Urine RBC 0-5 SEEN, Urine WBC 50-100 SEEN, Ur Squamous Epith Cells 0-5 SEEN, Ur Transition Epith Cell 0-5 SEEN, Urine Bacteria 2+, Urine Mucus 0 SEEN 03/10/19 20:15: Hgb 9.7 L, Hct 28.5 L 03/11/19 05:22: WBC 6.3, RBC 2.77 L, Hgb 8.7 L, Hct 25.7 L, MCV 92.8, MCH 31.4, MCHC 33.9, RDW Std Deviation 45.1 H, RDW Coeff of Ricky 13.2, Plt Count 111 L, MPV 10.7, Immature Gran % (Auto) 0.500, Neut % (Auto) 80.2 H, Lymph % (Auto) 4.9 L, [place] % (Auto) 12.0 H, Eos % (Auto) 2.1, Baso % (Auto) 0.3, Absolute Neuts (auto) 5.1, Absolute Lymphs (auto) 0.31 L, Nucleated RBC % 0 03/11/19 05:22: Sodium 136, Potassium 3.4 L, Chloride 109 H, Carbon Dioxide 18.0 L, Anion Gap 9, BUN 33 H, Creatinine 3.40 H, Estim Creat Clear Calc 12.35, Est GFR (MDRD) Af Amer 17 L, Est GFR (MDRD) Non-Af 14 L, BUN/Creatinine Ratio 9.7 L, Glucose 183 H, Calcium 7.7 L, TSH 0.44 Current Medications Acetaminophen (Tylenol) 650 mg PO Q6H PRN PRN PRN Reason: Mild Pain (1-3)/Temp > 100.7 F Last Admin: 03/11/19 02:06 Dose: 650 mg Documented by: Albuterol Sulfate (Ventolin Aerosols) 2.5 mg INHALATION Q2H PRN PRN PRN Reason: Shortness of Breath/Wheezing Dextrose (D50w Syringe) 0 gm IV X1 PRN; Protocol PRN Reason: Hypoglycemia Fluticasone Propionate (Flonase Nasal [place]) 1 spray NASAL DAILY [facility] Glucagon () 1 mg IM .X1 PRN PRN Reason: Hypoglycemia Sodium Chloride () 1,000 mls @ 150 mls/hr IV .Q6H40M [facility] Last Admin: 03/11/19 07:22 Dose: 150 mls/hr Documented by: Ceftriaxone Sodium (Rocephin) 1 gm in 50 mls @ 100 mls/hr IV Q24 [facility] Last Infusion: 03/10/19 17:26 Dose: Infused Documented by: Sodium Chloride () 250 mls @ 15 mls/hr IV .[id number] PRN PRN Reason: Saline Flush Ondansetron HCl (Zofran) 4 mg IV Q8H PRN PRN PRN Reason: NAUSEA/VOMITING Pantoprazole Sodium (Protonix) 40 mg PO DAILY [facility] Polyethylene Glycol (Miralax) 17 gm PO DAILY [facility] Last Admin: 03/10/19 16:47 Dose: 17 gm Documented by: Promethazine HCl (Phenergan) 12.5 mg IV Q6H PRN PRN PRN Reason: Breakthrough nausea/vomiting Propranolol HCl (Inderal) 40 mg PO DAILY [facility] Last Admin: 03/10/19 16:49 Dose: 40 mg Documented by: Psyllium Hydrophilic Mucilloid (Metamucil) 1 packet PO DAILY [facility] Last Admin: 03/10/19 16:47 Dose: 1 packet Documented by: Sodium Chloride () 10 - 40 ml IV UD PRN PRN Reason: SALINE FLUSH Assessment/Plan All Active Problems Dizziness (Acute) Acute kidney injury (Acute) Near syncope (Acute) Dehydration (Acute) Urinary tract infection (Acute) 1. Acute kidney injury. No prior history of CKD. Most recently available SCr was from 01/2104 at 1.2 mg/dL. Will check with Dr. Cardoza's office to see if there is more recent SCr. Suspect MONICA is prerenal from poor oral intake due to GI complaints which is made worse by the concurrent use of NSAID. She may have also progressed to ATN as well. Other possibility is AIN from NSAID use. Low suspicion for other causes of MONICA at this point. Agree with checking renal US. This will also help evaluate kidney size. Will also check UPCR. Agree with IVF. Agree with holding NSAID. Would not restart NSAID. No urgent need for kidney replacement therapy. Current medications are reviewed. No need to change dosage for current CrCl. 2. Hypokalemia. Likely due to GI loss. Mg is OK at 1.8, but would recheck in am. Replace K deficit with KCl and recheck level in am. 3. Acidosis. Serum bicarbonate level is 18. This is likely due to MONICA as well as NS. IOf HCO3 is lower tomorrow, we can switch the patient to LR. 4. Anemia. The patient has normocytic anemia. Mild thrombocytopenia. Doubt she has aHUS. However, will monitor Hgb and platelet. If worse, check for schistocyte and check LDH. 5. Pyuria. Asymptomatic. No dysuria. Urine culture pending. Will check urine eosinophils since patient has been on NSAID which could cause AIN. On empiric antibiotic until culture is availabel.
[2019-03-11] MEDS: Pantoprazole Sodium 40 MG Tablet PO (09:27)
[2019-03-11] MEDS: Propranolol 40 MG Tablet PO (09:27)
[2019-03-11] MEDS: Fluticasone 0.05% 1 SPRAY NASAL.SRY NASAL (09:29)
[2019-03-11] MEDS: Polyethylene Glycol 3350 17 GM PACKET PO (09:29)
[2019-03-11] MEDS: Psyllium 1 PACKET PO (09:29)
[2019-03-11] MEDS: Ceftriaxone 1 GM/50 ML BAG IV (09:31)
--- NOTE | 2019-03-11 11:20 | CASEMGMT ---
Addendum entered by James Jansen 03/12/19 12:12: PT/OT kym pending. RN CM to room to talk with pt. Pt sitting up in chair in room, awake/alert/oriented. Discussed OP therapy with pt at this time. Pt states they have several pieces of exercise equipment at home that she can use when she wants. She declines OP therapy at this time, stating she wishes to see how she feels/does once she returns home. Pt made aware that, if she decides in the future she would be interested in OP therapy, to discuss this with her PCP. Pt voices understanding. Original Note: RN CM DIRECTOR OF HOME HEALTH SERVICES CM to room to meet with patient for initial transition planning/care coordination assessment. RN ARLEY introduced self and role at [facility]. Pt voices understanding and consents to assessment at this time. Pt resting in bed in no distress at this time. at bedside. Pt is A/O at this time and answers all questions appropriately. Care providers, pharmacy, and demographics verified at this time. PCP: Dr Cardoza Specialists: Dr Liset DDS, Dr Cunningham--opthalmology Preferred Pharmacy: States goes to different pharmacies and does not want one listed. Would like paper scripts at d/c to be able to take to pharmacy on their own Insurance: [facility] Prescription Benefit: Yes Living Will/HPOA: States does not have LW or HCPOA . Interested in more information but states does not want to talk with SW at this time to complete paperwork. Provided information on advanced directives and given Social Service rac card with number to call if chooses in the future to utilize [facility] social work for advanced directive completion. LNOK: Living Arrangements: Lives with in 2-story home w/basement. Denies difficulty with stairs. Pt is independent w/personal ADL's. and pt share home mgmt tasks. Transportation: Pt states drives self and states no transportation concerns at this time. also drives and will take pt home @ discharge. DME: Denies using any DME and denies needs. Pt states no need for further DME at this time. HHC/SNF: No history of either and denies needs. No needs identified. Pt wishes to return home and states has no concerns with going home at time of discharge. CM to follow for any discharge planning/needs. Pt voices no further concerns/needs at this time. Advised pt to ask for CM if any further questions/concerns/needs arise. Voices understanding. Pt's goal: Home D/C Plan: Home Ru KEY RN CM
[2019-03-11 11:29] LABS: Protein, Urine (Random) 137.2 mg/dL (<11.9); Protein:Creat Ratio 1966 mg/g CRE (0-200)
--- NOTE | 2019-03-11 13:05 | NURSING ---
received call from Endo, pt is planned for EGD 03/12 at 0730
[2019-03-11 14:02] VITALS: BP 152/65; PULSE 82; RESP 16; TEMP 36.9; O2SAT 98
[2019-03-11 14:14] LABS: Hematocrit 27.3 % (37-47); Hemoglobin 9.2 g/dL (12.0-15.0)
[2019-03-11 14:54] LABS: Vitamin B12 990 pg/mL (211-911)
[2019-03-11 15:34] LABS: Ferritin 347 ng/mL (8-252); Iron 15 ug/dL (50-170); Iron Binding Capacity,Total 137 ug/dL (250-450); PERCENT IRON SATURATION 10.9 % (15.0-55.0)
[2019-03-11] MEDS: 0.9% Normal Saline 1,000 ML 125 ML IV ×2 (15:48→23:35)
--- NOTE | 2019-03-11 17:37 | CON.PCM_ITS ---
Reason for Consult Date of Consultation: 03/11/19 Reason for Consultation: heme positive stool, anemia History of Present Illness: The patient is a 73 year old F who presented to the emergency department at [facility] on 03/10/19 for dizziness and gait instability x 3 weeks. Patient notes a history of chronic abdominal pain x 5 years, had previously been diagnosed with irritable bowel syndrome and was on Bentyl. This was changed to Elavil by her PCP in the last 2-3 months. Patient had initially attributed the dizziness to the Elavil, but states the symptoms persisted and worsened when she went off of this and back on Bentyl. She notes associated right back and flank pain in the last week, and had one day where she had both coffee-ground emesis and dark stools which have since resolved. Notes has not been moving her bowels much over the last week, attributes this to not eating well as she has had nausea and little appetite. She denies any bright red blood in stools. Denies fever or chills. Patient had labs drawn emergency department significant for hemoglobin 9.7, BUN/creatinine 38/3.68, sodium 133. CT of brain was unremarkable. She had a chest xray which showed no acute abnormality, EKG showed normal sinus rhythm. Patient was admitted with diagnosis of acute kidney injury and was initiated on IV hydration. Labs from 03/11 showed a drop in hemoglobin to 8.7, and stool was positive for occult blood as well as fecal lactoferrin. General surgery was consulted. Patient's past medical history is significant for IBS as noted above, chronic back pain for which she had been taking NSAIDs-discontinued during this hospitalization, hiatal hernia, esophageal reflux, hemorrhoids. She has had multiple abdominal surgeries including a total abdominal hysterectomy. Her most recent colonoscopy and EGD were performed by Dr. Fletcher 10/30/13. Of note, patient had similar complaints of right flank pain at that time per Dr. Fletcher's office notes. She had also been referred for colonoscopy at that time due to CT findings of a possible filling defect in the cecum. Findings from that upper and lower endoscopy included mild duodenitis, normal ileocecal valve and few diverticula. Patient denies problems with sedation in the past. Past Medical History Past Medical History (Chronic Problems): Chronic Problems Chronic abdominal pain (Chronic) Allergies codeine Allergy (Verified 03/10/19 08:49) Nausea ANESTHETICS Allergy (Uncoded 03/10/19 08:49) Vomiting Home Medications: Ambulatory Orders Medication Instructions Recorded Fluticasone 0.05% [Flonase Nasal 1 spray NASAL DAILY 02/14/14 [place]] Naproxen [Naprosyn] 500 mg PO DAILY 02/14/14 Polyethylene Glycol 3350 [Miralax] 17 gm PO DAILY 02/14/14 Propranolol HCl [Inderal (Beta 40 mg PO DAILY 02/14/14 [place])] Psyllium [Metamucil] 1 packet PO DAILY 02/14/14 Dicyclomine HCl [Bentyl] 10 mg PO ACHS 03/10/19 Lansoprazole [Prevacid] 15 mg PO DAILY 03/10/19 Surgical History: appendectomy, cholecystectomy, hysterectomy, tonsillectomy, - - Salpingoophorectomy Psychiatric History: No pertinent psych hx 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 Denies: Hematochezia Musculoskeletal: Reports: Back Pain Skin: Denies: Skin Changes Neurological: Reports: Balance problems, - - dizziness Hematologic/ Lymphatic: Denies: Easy Bruising, Easy Bleeding Patient Problems: Active and Suspected Problems Dizziness (Acute) Acute kidney injury (Acute) - Physical Exam Vitals/I&O's: Vital Signs Temp Pulse Resp BP Pulse Ox 98.4 F 82 16 152/65 H 98 03/11/19 14:02 03/11/19 14:02 03/11/19 14:02 03/11/19 14:02 03/11/19 14:02 Oxygen Delivery Method Room Air Weight: 189 lb 6.033 oz Body Mass Index (BMI) 32.5 Finger Stick Blood Glucose 123 Intake and Output for Last 24 Hours 03/09/19 03/10/19 03/11/19 23:59 23:59 23:59 Intake Total 1860 / 1860 3407.5 / 3407.5 Output Total 850 / 850 Balance 1658 / 1658 2557.5 / 2557.5 General: Alert, Oriented x3, Cooperative, No apparent distress HEENT: Atraumatic, PERRLA Neck: Supple Lungs: Clear to auscultation Cardiovascular: Regular rate, Regular Rhythm, Normal S1, Normal S2 Abdomen: Bowel Sounds Present, Soft, Tender - mild diffuse TTP without rebound or guarding Extremities: No clubbing, No cyanosis, No edema Skin: No rashes, No breakdown Microbiology Past 72 Hours 03/11/19 09:55 Stool Stool Lactoferrin - Final 03/11/19 09:55 Stool Enteric Bacteriology - Final 03/11/19 09:55 Stool Stool Occult Blood (MINNA) - Final Occult Blood Positive 03/10/19 16:28 Urine, Clean Catch Urine Culture - Preliminary GNR lactose clinic 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35, Est GFR (MDRD) Af Amer 17 L, Est GFR (MDRD) Non-Af 14 L, BUN/Creatinine Ratio 9.7 L, Glucose 183 H, Calcium 7.7 L, TSH 0.44 03/11/19 11:11: U Random Total Protein 137.2 H, Urine Creatinine 69.80, Protein/Creatinin Ratio 1966 H 10/23/19 13:55: Hgb 9.2 L, Hct 27.3 L 03/11/19 13:55: Vitamin B12 990 H 03/11/19 13:55: Iron 15 L, TIBC 137 L, Iron Saturation 10.9 L, Ferritin 347 H, Folate 27.10 Current Medications Acetaminophen (Tylenol) 650 mg PO Q6H PRN PRN PRN Reason: Mild Pain (1-3)/Temp > 100.7 F Last Admin: 03/11/19 15:53 Dose: 650 mg Documented by: Albuterol Sulfate (Ventolin Aerosols) 2.5 mg INHALATION Q2H PRN PRN PRN Reason: Shortness of Breath/Wheezing Dextrose (D50w Syringe) 0 gm IV X1 PRN; Protocol PRN Reason: Hypoglycemia Fluticasone Propionate (Flonase Nasal [place]) 1 spray NASAL DAILY [facility] Last Admin: 03/11/19 09:29 Dose: 1 spray Documented by: Glucagon () 1 mg IM .X1 PRN PRN Reason: Hypoglycemia Sodium Chloride () 1,000 mls @ 125 mls/hr IV .Q8H [facility] Last Admin: 03/11/19 15:48 Dose: 125 mls/hr Documented by: Ceftriaxone Sodium (Rocephin) 1 gm in 50 mls @ 100 mls/hr IV Q24 [facility] Last Infusion: 03/11/19 10:01 Dose: Infused Documented by: Sodium Chloride () 250 mls @ 15 mls/hr IV .[id number] PRN PRN Reason: Saline Flush Ondansetron HCl (Zofran) 4 mg IV Q8H PRN PRN PRN Reason: NAUSEA/VOMITING Pantoprazole Sodium (Protonix) 40 mg PO DAILY [facility] Last Admin: 03/11/19 09:27 Dose: 40 mg Documented by: Polyethylene Glycol (Miralax) 17 gm PO DAILY [facility] Last Admin: 03/11/19 09:29 Dose: 17 gm Documented by: Promethazine HCl (Phenergan) 12.5 mg IV Q6H PRN PRN PRN Reason: Breakthrough nausea/vomiting Propranolol HCl (Inderal) 40 mg PO DAILY [facility] Last Admin: 03/11/19 09:27 Dose: 40 mg Documented by: Psyllium Hydrophilic Mucilloid (Metamucil) 1 packet PO DAILY [facility] Last Admin: 03/11/19 09:29 Dose: 1 packet Documented by: Sodium Chloride () 10 - 40 ml IV UD PRN PRN Reason: SALINE FLUSH Assessment/Plan All Active Problems Dizziness (Acute) Acute kidney injury (Acute) Near syncope (Acute) Dehydration (Acute) Urinary tract infection (Acute) I have reviewed my findings with Dr. Fletcher, who also participated in development of the following plan: Acute kidney injury-patient following with hospitalist service and treated with IV fluids Heme positive stools, history of coffee ground emesis, nausea and melena. History of NSAID use and prior duodenitis. Recommend upper endoscopy for f urther evaluation of suspected peptic ulcer disease/gastritis. Would hold off on colonoscopy at this time due to MONICA and risk of dehydration with bowel prep Plan for EGD to be done tomorrow morning by Dr. Fletcher. The proposed procedure, risks and benefits were discussed with the patient, and the patient had the opportunity to ask questions and have questions answered.
[2019-03-11 21:53] VITALS: BP 141/66; PULSE 73; RESP 16; TEMP 36.4; O2SAT 97
[2019-03-11 22:30] LABS: Hematocrit 28.4 % (37-47); Hemoglobin 9.6 g/dL (12.0-15.0)
[2019-03-12] VITALS (9 sets, daily range): BP systolic 111–159; BP diastolic 61–70; PULSE 77–92; RESP 16; TEMP 36.7–37.2; O2SAT 95–99; BMI 32.5
--- NOTE | 2019-03-12 | IMM_PTH ---
PATIENT: LALITA JOINER LOC: MS3 U#:[id number] AGE/SX: 73/F ROOM: [facility] RE03/10/[address]: Dr. Casimiro Murphy DO : 1945 BED: 1 DIS: 03/14/2019 SPEC #: [id number] RECD: 03/13/19 11:21 STATUS: COURTNEY REQ #: [id number] LINDA: 03/12/19 00:[address]: Davis Fletcher DEPT: IMMUNOHISTOCHEMISTRY RECD BY: Ada Haq ENTERED: 03/13/19 11:22 SP TYPE: IMMUNO OTHR DR: MD Dr. Roby Hill MD Dr. Liza D Talampas, MD Dr. Prakash Chand, MD Tissues: A - Stomach, NOS Procedures: H Pylori (initial) PHYSICIAN & INSTITUTION [place] [id number] SPECIMEN INFORMATION: Tissue Source: A - Antral biopsy Clinical Info: GI bleed Specimen Number: [id number] CPT code: 71010 METHODOLOGY: Deparaffinized sections of prefer/formalin-fixed tissue or PAP/DQ stained slides are incubated with monoclonal/polyclonal antibodies/oligonucleotide probes. Localization is made via biotin free immunoperoxidase method. Appropriate controls are performed and reacted as expected. Results on target cell population are indicated in the following table: RESULTS: ANTIBODY / CLONE RESULT Block A H Pylori (polyclonal) negative These tests were developed and their performance characteristics determined by [facility]. They may not have been cleared or approved by the U.S. Food and Drug Administration. The FDA has determined that such clearance or approval is not necessary. The above immunohistochemical/dualISH markers are ordered and reviewed by the Pathologist. INTERPRETATION: A. Antral biopsy: Negative for Helicobacter pylori organisms. SJ:lindsay 03/13/19
[2019-03-12 05:15] LABS: Absolute Lymphocyte Count 0.53 X10^3/uL (0.83-4.51); Absolute Neutrophil Count 6.6 X10^3/uL (2.0-7.7); Basophil# 0.06 X10^3/uL; Basophil% 0.7 % (0-1); Eosinophil# 0.23 X10^3/uL; Eosinophils% 2.7 % (0-5); Hematocrit 27.7 % (37-47); Hemoglobin 9.3 g/dL (12.0-15.0); Lymphocyte # 0.53 X10^3/ul (4.0); Lymphocyte % 6.3 % (19-41); Mean Corp Hgb Conc 33.6 g/dL (32-36); Mean Corpuscular Hgb 31.8 pg (27.0-32.0); Mean Corpuscular Volume 94.9 fL (81-99); Mean Platelet Vol. 10.6 fl (6.2-12.0); Monocyte# 0.85 X10^3/uL; Monocyte% 10.1 % (0-10); NRBC Flagged by Analyzer 0 % (0-5); Neutrophil % 78.7 % (47-70); POSITIVE COUNT YES; POSITIVE DIFFERENTIAL YES; Platelet Count 125 K/mm3 (150-450); RBC Distribution Width CV 13.4 % (11.6-14.6); RBC Distribution Width SD 46.4 fl (35.1-43.9); Red Blood Count 2.92 M/mm3 (4.2-5.4); White Blood Count 8.4 K/mm3 (4.4-11.0)
[2019-03-12 05:41] LABS: Albumin, Serum 2.1 g/dL (3.2-5.0); Anion Gap 8 (5-15); BUN 27 mg/dL (7-18); BUN/Creat Ratio 9.2 RATIO (10-20); Calcium,Total 7.7 mg/dL (8.5-10.1); Chloride 115 mmol/L (98-107); Creatinine, Serum 2.93 mg/dL (0.55-1.02); EST Glomerular Filtration Rate 17 mL/min (>60); Est Glom Filt Rate - Afr Amer 20 mL/min (>60); Estimated Creatinine Clearance 14.33 ml/min; Glucose 107 mg/dL (74-106); Magnesium 1.7 mg/dL (1.6-2.6); Potassium 3.8 mmol/L (3.5-5.1); Sodium Level 140 mmol/L (136-145)
[2019-03-12 05:44] LABS: Differential Indicated SCAN CRITERIA MET
[2019-03-12] MEDS: Ondansetron 4 MG/2 ML Vial IV (06:21)
[2019-03-12] MEDS: 0.9% Saline Lock 10 ML Syringe IV (06:21)
--- NOTE | 2019-03-12 06:30 | NURSING ---
report called to luis e for pt egd
[2019-03-12 07:27] LABS: International Normalized Ratio 1.3; Partial Thromboplast Time 32.2 Seconds (24.1-36.2); Prothrombin Time (Protime)PT. 16.3 SECONDS (11.7-14.9)
--- NOTE | 2019-03-12 07:30 | EGD_PTH ---
PATIENT: LALITA JOINER LOC: MS3 U#:[id number] AGE/SX: 73/F ROOM: [facility] RE03/10/[address]: Dr. Casimiro Murphy DO : 1945 BED: 1 DIS: 03/14/2019 SPEC #: [id number] RECD: 03/12/19 08:39 STATUS: COURTNEY RETiffany #: [id number] LINDA: 03/12/19 07:[address]: Davis Fletcher DEPT: SURGICAL PATHOLOGY RECD BY: Rolando London ENTERED: 03/12/19 11:00 SP TYPE: EGD BIOPSY OT DR: MD Dr. Roby Hill MD Dr. Liza D Talampas, MD Dr. Prakash Chand, MD Tissues: A - Gastric mucous membrane B - Gastric mucous membrane C - Gastric mucous membrane Procedures: Special Stain Group II Surgery Specimen Level IV Alcian Blue/PAS (control) HEADER OPERATION: EGD ([facility]) PRE-OP DIAGNOSIS: GI bleed TISSUE SUBMITTED: A - Antral biopsy, B - Gastric polyp biopsy, C - GE junction biopsy MICROSCOPIC DIAGNOSIS A. Antral biopsy: Mild gastritis. See microscopic description and comment. B. Gastric polyp, biopsy: Consistent with fundic gland polyp. C. GE junction, biopsy: A fragment of gastroesophageal mucosa with chronic inflammation. Intestinal metaplasia (goblet cell metaplasia) is not identified. See comment. SJ:lindsay 03/13/19 COMMENT A. The results of immunohistochemistry for Helicobacter pylori will be reported separately ([id number]). C. Alcian blue/PAS stain with matched control is used in the evaluation of the specimen. MICROSCOPIC DESCRIPTION Slides are reviewed. A. The specimen shows fragments of gastric mucosa with chronic inflammatory cell infiltrates in the lamina propria consisting of lymphocytes and plasma cells, consistent with mild chronic gastritis. GROSS DESCRIPTION A - Received in fixative is one container labeled with the patient's name and designated antral biopsy. The specimen consists of one irregular fragment of light marrufo soft tissue that measures 0.3 x 0.3 x 0.1 cm. The specimen is totally submitted in one cassette. B - Received in fixative is one container labeled with the patient's name and designated gastric polyp biopsy. The specimen consists of one irregular fragment of light marrufo soft tissue that measures 0.4 x 0.3 x 0.1 cm. The specimen is totally submitted in one cassette. C - Received in fixative is one container labeled with the patient's name and designated GE junction biopsy. The specimen consists of one irregular fragment of light marrufo soft tissue that measures 0.3 x 0.3 x 0.1 cm. The specimen is totally submitted in one cassette. / SJ:rg 03/12/19 TC:3 CPT: 21192 x3, 26701
--- NOTE | 2019-03-12 08:03 | OP.ENDO_ITS ---
03/12/2019 Nohemi Cardoza [address] [place] [address] Re : Upper GI endoscopy procedure for Aurora Bustamante Dear Dr. Cardoza This procedure was performed on February. My impressions and recommendations are as follows: Impressions : - Friable jejunal mucosa. - Friable duodenal mucosa. - Normal antrum. Biopsied. - Multiple gastric polyps. Biopsied. - Small hiatal hernia. - Non-severe reflux esophagitis. Biopsied. - Mild Schatzki ring. Recommendations : - Return patient to [facility] for [facility]. - Resume regular diet. - Continue present medications. - Await pathology results. My findings are described in the full procedure note, which is enclosed. If I can be of further assistance, please feel free to contact me at Doctor phone number(s): , Work: . Sincerely, Davis Fletcher MD 03/12/2019 8:02:56 AM This report has been signed electronically.
--- NOTE | 2019-03-12 08:30 | NURSING ---
back from endo
--- NOTE | 2019-03-12 08:58 | PN_ITS ---
Patient Problems: Active and Suspected Problems Dizziness (Acute) Acute kidney injury (Acute) Subjective: Patient was on Aleve, other NSAID prior to admission. This might be possible reason for acute kidney injury along with UTI. Patient has EGD. Vitals/I&O's: Vital Signs Temp Pulse Resp BP Pulse Ox 98.2 F 85 16 142/70 H 95 03/12/19 08:44 03/12/19 08:44 03/12/19 08:44 03/12/19 08:44 03/12/19 08:44 Oxygen Delivery Method Room Air Weight: 189 lb 6.033 oz Body Mass Index (BMI) 32.5 Finger Stick Blood Glucose 123 Intake and Output for Last 24 Hours 03/10/19 03/11/19 03/12/19 23:59 23:59 23:59 Intake Total 1860 / 1860 4380.42 / 4380.42 889.58 / 889.58 Output Total 202 / 202 850 / 850 500 / 500 Balance 1658 / 1658 3530.42 / 3530.42 389.58 / 389.58 General: Alert, Oriented x3, Cooperative HEENT: Atraumatic, PERRLA, EOMI, Normocephalic Neck: Supple, No JVD, Negative Carotid Bruits Lungs: Clear to auscultation, No rhonchi, No wheeze, No rales, Diminished Cardiovascular: Regular rate, Regular Rhythm, Normal S1, No murmurs Abdomen: Bowel Sounds Present, Soft, Non Tender, Non-Distended Extremities: No edema, Capillary Refill Less than 3 Seconds Skin: No rashes, No breakdown Musculoskeletal: No Tenderness to Palpation of Joints or Extremities Neurological: Cranial nerves II-XII grossly intact, Deep Tendon Reflexes 2+/4 and Symmetrical, Neuro grossly intact Psych/Mental Status: Normal Affect, Appropriate Microbiology Past 72 Hours 03/10/19 16:28 Urine, Clean Catch Urine Culture - Final Klebsiella pneumoniae sp pneum 03/11/19 09:55 Stool Stool Lactoferrin - Final 03/11/19 09:55 Stool Enteric Bacteriology - Final 03/11/19 09:55 Stool Stool Occult Blood (MINNA) - Final Occult Blood Positive Laboratory Results 03/11/19 11:11: U Random Total Protein 137.2 H, Urine Creatinine 69.80, Protein/Creatinin Ratio 1966 H 03/11/19 13:55: Hgb 9.2 L, Hct 27.3 L 03/11/19 13:55: Vitamin B12 990 H 03/11/19 13:55: Iron 15 L, TIBC 137 L, Iron Saturation 10.9 L, Ferritin 347 H, Folate 27.10 03/11/19 22:21: Hgb 9.6 L, Hct 28.4 L 03/12/19 05:00: Sodium 140, Potassium 3.8, Chloride 115 H, Carbon Dioxide 17.0 L , Anion Gap 8, BUN 27 H, Creatinine 2.93 H, Estim Creat Clear Calc 14.33, Est GFR (MDRD) Af Amer 20 L, Est GFR (MDRD) Non-Af 17 L, BUN/Creatinine Ratio 9.2 L, Glucose 107 H, Calcium 7.7 L, Magnesium 1.7, Albumin 2.1 L 03/12/19 05:00: WBC 8.4, RBC 2.92 L, Hgb 9.3 L, Hct 27.7 L, MCV 94.9, MCH 31.8, MCHC 33.6, RDW Std Deviation 46.4 H, RDW Coeff of Ricky 13.4, Plt Count 125 L, MPV 10.6, Immature Gran % (Auto) 1.500 H, Neut % (Auto) 78.7 H, Lymph % (Auto) 6.3 L , Avery % (Auto) 10.1 H, Eos % (Auto) 2.7, Baso % (Auto) 0.7, Absolute Neuts (auto) 6.6, Absolute Lymphs (auto) 0.53 L, Nucleated RBC % 0, Diff Path Review September03/12/19 05:00: PT Cancelled, INR Cancelled, APTT Cancelled 03/12/19 07:10: PT 16.3 H, INR 1.3, APTT 32.2 Current Medications Acetaminophen (Tylenol) 650 mg PO Q6H PRN PRN PRN Reason: Mild Pain (1-3)/Temp > 100.7 F Last Admin: 03/11/19 15:53 Dose: 650 mg Documented by: Albuterol Sulfate (Ventolin Aerosols) 2.5 mg INHALATION Q2H PRN PRN PRN Reason: Shortness of Breath/Wheezing Dextrose (D50w Syringe) 0 gm IV X1 PRN; Protocol PRN Reason: Hypoglycemia Fluticasone Propionate (Flonase Nasal [place]) 1 spray NASAL DAILY [facility] Last Admin: 03/11/19 09:29 Dose: 1 spray Documented by: Glucagon () 1 mg IM .X1 PRN PRN Reason: Hypoglycemia Sodium Chloride () 1,000 mls @ 125 mls/hr IV .Q8H JORDI Last Infusion: 03/12/19 06:42 Dose: 0 mls/hr Documented by: Ceftriaxone Sodium (Rocephin) 1 gm in 50 mls @ 100 mls/hr IV Q24 [facility] Last Infusion: 03/11/19 10:01 Dose: Infused Documented by: Sodium Chloride () 250 mls @ 15 mls/hr IV .[id number] PRN PRN Reason: Saline Flush Ondansetron HCl (Zofran) 4 mg IV Q8H PRN PRN PRN Reason: NAUSEA/VOMITING Last Admin: 03/12/19 06:21 Dose: 4 mg Documented by: Pantoprazole Sodium (Protonix) 40 mg PO DAILY [facility] Last Admin: 03/11/19 09:27 Dose: 40 mg Documented by: Polyethylene Glycol (Miralax) 17 gm PO DAILY [facility] Last Admin: 03/11/19 09:29 Dose: 17 gm Documented by: Promethazine HCl (Phenergan) 12.5 mg IV Q6H PRN PRN PRN Reason: Breakthrough nausea/vomiting Propranolol HCl (Inderal) 40 mg PO DAILY [facility] Last Admin: 03/11/19 09:27 Dose: 40 mg Documented by: Psyllium Hydrophilic Mucilloid (Metamucil) 1 packet PO DAILY [facility] Last Admin: 03/11/19 09:29 Dose: 1 packet Documented by: Sodium Chloride () 10 - 40 ml IV UD PRN PRN Reason: SALINE FLUSH Last Admin: 03/12/19 06:21 Dose: 10 ml Documented by: STROKE Vital Signs/Narrative: Vital Signs Temp Pulse Resp BP Pulse Ox 03/12/19 08:44 98.2 F 85 16 142/70 H 95 03/12/19 08:11 98.4 F 89 16 129/65 H 99 03/12/19 08:10 90 16 131/65 H 99 03/12/19 08:05 92 16 116/61 97 03/12/19 08:00 88 16 118/67 97 03/12/19 07:58 98.5 F 89 16 111/61 96 Medical Necessity - Tobacco Use Smoking Status: Never smoker Assessment/Plan All Active Problems Dizziness (Acute) Acute kidney injury (Acute) Near syncope (Acute) Dehydration (Acute) Urinary tract infection (Acute) The patient is a 73 year old F with history of chronic abdominal pain for more than 5 years came to ER with dizziness, nausea off balance, gait instability and a spinning sensation for last 3 weeks. Patient also had one large vomiting, coffee-ground with black stool about 10 days ago. Patient denies blurry vision although she takes time/hesitation in her speech. Denies headache or slurring or previous history of TIA/stroke. In ED, vitals were found stable although respiratory rate 24. H&H on her baseline 10.5/29.9. BUN/creatinine 38/3.68, baseline 13/1.2 in 01/2014. Sodium 133. CT brain unremarkable. Chest x-ray no acute abnormality seen. EKG normal sinus rhythm, low voltage QRS, QTC 420 ms at 94 bpm [] 1. Dizziness, lightheadedness, near syncope mostly secondary to dehydration/Elavil side effect: Patient is being admitted on MedSur telemetry. CT head was unremarkable. MRI brain ordered. Patient does not have TIA or stroke in the past. NIH stroke scale 0. MRI brain reported no evidence of acute infarct. Empty sella deformity of uncertain clinical significance. 2. Acute kidney injury with oliguria with possible UTI with non-anion gap metabolic acidosis: BUN/creatinine seems more like ATN. Her previous BUN/cre atinine was in January 2014. Sodium 133, chloride 114 bicarb 19 with anion gap 11, non-anion gap metabolic acidosis. Urine lites, urine sodium 37, chloride 29 and FENa 1.2 is more suggestive of ATN. Discussed with the oil well services supervisor. UA is positive of pyuria, nitrite, LE 500. Urine culture reported 52,000-80,000 Klebsiella pneumoniae sensitive to ceftriaxone and cefepime. Antibiotic changed to cefepime as patient is started on Ringer lactate for metabolic acidosis. Kidneys and bladder ultrasound reported mild degree of bilateral hydronephrosis. 3. Non-anion gap metabolic acidosis secondary to acute kidney injury: Patient bicarb did not improve still 17, anion gap 8, sodium 140, chloride 115. IV fluid changed to Ringer lactate at 125 mill per hour. Monitor intake and output. Discussed with oil well services supervisor. 4. Chronic abdominal pain with no definite pattern of constipation/diarrhea with possible recent GI bleed: Stool for occult blood positive. Enteric bacteriology panel negative. Fecal WBC lactoferrin present. Patient had EGD done which shows friable vaginal mucosa, friable duodenal mucosa. Normal antrum. Multiple gastric polyps biopsied. Small hiatus hernia. Nonsevere reflux esophagitis. Mild Schatzki ring. Resume regular diet. On PPI. 4. Other chronic comorbidities include multiple abdominal surgeries, anxiety and depression: Home medication reconciliation 5. Acute on anemia of chronic disease: Dropped hemoglobin and platelet count therefore pharmacological prophylaxis discontinued. H&H 9.08/13. Platelet count 125. Iron studies shows ferritin 347, high transferrin saturation 10.9, serum iron and TIBC low suggestive of anemia of chronic disease. DVT prophylaxis on bilateral SCDs Management plan discussed with the patient and her . Laboratory Results 03/10/19 16:28: Urine Creatinine 68.70 03/10/19 16:28: Ur Random Sodium 37, Urine Potassium 15.0, Urine Chloride 29 03/10/19 16:28: Urine Color Yellow, Urine Clarity Cloudy, Urine pH 6.0, Ur Specific [place] 1.010, Urine Protein 100 H, Urine Glucose (UA) Normal, Urine Ketones 5 H, Urine Occult Blood 50 H, Urine Nitrite Positive H, Urine Bilirubin Negative, Urine Urobilinogen Normal, Ur Leukocyte Esterase 500 H, Urine RBC 0-5 SEEN, Urine WBC 50-100 SEEN, Ur Squamous Epith Cells 0-5 SEEN, Ur Transition Epith Cell 0-5 SEEN, Urine Bacteria 2+, Urine Mucus 0 SEEN 03/10/19 20:15: Hgb 9.7 L, Hct 28.5 L Microbiology Past 72 Hours 03/10/19 16:28 Urine, Clean Catch Urine Culture - Final Klebsiella pneumoniae sp pneum 03/11/19 09:55 Stool Stool Lactoferrin - Final 03/11/19 09:55 Stool Enteric Bacteriology - Final 03/11/19 09:55 Stool Stool Occult Blood (MINNA) - Final Occult Blood Positive 03/11/19 22:21: Hgb 9.6 L, Hct 28.4 L 03/12/19 05:00: Sodium 140, Potassium 3.8, Chloride 115 H, Carbon Dioxide 17.0 L , Anion Gap 8, BUN 27 H, Creatinine 2.93 H, Estim Creat Clear Calc 14.33, Est GFR (MDRD) Af Amer 20 L, Est GFR (MDRD) Non-Af 17 L, BUN/Creatinine Ratio 9.2 L, Glucose 107 H, Calcium 7.7 L, Magnesium 1.7, Albumin 2.1 L 03/12/19 05:00: WBC 8.4, RBC 2.92 L, Hgb 9.3 L, Hct 27.7 L, MCV 94.9, MCH 31.8, MCHC 33.6, RDW Std Deviation 46.4 H, RDW Coeff of Ricky 13.4, Plt Count 125 L, MPV 10.6, Immature Gran % (Auto) 1.500 H, Neut % (Auto) 78.7 H, Lymph % (Auto) 6.3 L, [place]very % (Auto) 10.1 H, Eos % (Auto) 2.7, Baso % (Auto) 0.7, Absolute Neuts (auto) 6.6, Absolute Lymphs (auto) 0.53 L, Nucleated RBC % 0, Diff Path Review September03/12/19 07:00: Total Bilirubin 0.80, Direct Bilirubin 0.47 H, AST 10 L, ALT 18, Alkaline Phosphatase 147 H, Total Protein 5.4 L, Albumin 2.0 L, Globulin 3.4, Prealbumin 5.9 L 03/12/19 07:10: PT 16.3 H, INR 1.3, APTT 32.2 Code Visit Inpatient E&M: 94002 Subs Hosp L3
[2019-03-12] MEDS: 0.9% Normal Saline 1,000 ML 125 ML IV (09:11)
[2019-03-12] MEDS: Ceftriaxone 1 GM/50 ML BAG IV (10:02)
[2019-03-12] MEDS: Fluticasone 0.05% 1 SPRAY NASAL.SRY NASAL (10:03)
[2019-03-12] MEDS: Propranolol 40 MG Tablet PO (10:03)
[2019-03-12] MEDS: Psyllium 1 PACKET PO (10:03)
[2019-03-12] MEDS: Polyethylene Glycol 3350 17 GM PACKET PO (10:04)
[2019-03-12] MEDS: Pantoprazole Sodium 40 MG Tablet PO (10:04)
[2019-03-12 10:44] LABS: AST(SGOT) 10 U/L (15-37); Alanine Aminotransfer ALT/SGPT 18 U/L (13-56); Alkaline Phosphatase 147 U/L (45-117); Bilirubin, Direct 0.47 mg/dL (0.00-0.30); Globulin 3.4 g/dL (2.2-4.2); Prealbumin 5.9 mg/dL (20.0-40.0); Protein, Total 5.4 g/dL (6.4-8.2)
[2019-03-12] MEDS: Lactated Ringers 1,000 ML 125 ML IV ×2 (11:16→20:16)
[2019-03-12] MEDS: Acetaminophen 325 MG Tablet 650 MG PO (13:58)
--- NOTE | 2019-03-12 18:16 | PCM.PN.REN ---
Patient Problems: Active and Suspected Problems Dizziness (Acute) Acute kidney injury (Acute) Subjective: Following for MONICA. Patient denies CP, SOB. Still with poor appetite. No vomiting or diarrhea. - Physical Exam Vitals/I&O's: Vital Signs Temp Pulse Resp BP Pulse Ox 98.6 F 81 16 152/67 H 95 03/12/19 13:51 03/12/19 13:51 03/12/19 13:51 03/12/19 13:51 03/12/19 13:51 Oxygen Delivery Method Room Air Weight: 85.9 kg Body Mass Index (BMI) 32.5 Finger Stick Blood Glucose 123 Intake and Output for Last 24 Hours 03/10/19 03/11/19 03/12/19 23:59 23:59 23:59 Intake Total 1860 / 1860 4380.42 / 4380.42 1352.08 / 1352.08 Output Total 202 / 202 850 / 850 500 / 500 Balance 1658 / 1658 3530.42 / 3530.42 852.08 / 852.08 General: Alert, Oriented x3 Oral: Dry Mucosa Neck: Supple Lungs: Clear to auscultation Cardiovascular: Normal S1, Normal S2, No murmurs Abdomen: Soft, Non Tender, Non-Distended Extremities: No edema Microbiology Past 72 Hours 03/10/19 16:28 Urine, Clean Catch Urine Culture - Final Klebsiella pneumoniae sp pneum 03/11/19 09:55 Stool Stool Lactoferrin - Final 03/11/19 09:55 Stool Enteric Bacteriology - Final 03/11/19 09:55 Stool Stool Occult Blood (MINNA) - Final Occult Blood Positive Laboratory Results 03/11/19 22:21: Hgb 9.6 L, Hct 28.4 L 03/12/19 05:00: Sodium 140, Potassium 3.8, Chloride 115 H, Carbon Dioxide 17.0 L, Anion Gap 8, BUN 27 H, Creatinine 2.93 H, Estim Creat Clear Calc 14.33, Est GFR (MDRD) Af Amer 20 L, Est GFR (MDRD) Non-Af 17 L, BUN/Creatinine Ratio 9.2 L, Glucose 107 H, Calcium 7.7 L, Magnesium 1.7, Albumin 2.1 L 03/12/19 05:00: WBC 8.4, RBC 2.92 L, Hgb 9.3 L, Hct 27.7 L, MCV 94.9, MCH 31.8, MCHC 33.6, RDW Std Deviation 46.4 H, RDW Coeff of Ricky 13.4, Plt Count 125 L, MPV 10.6, Immature Gran % (Auto) 1.500 H, Neut % (Auto) 78.7 H, Lymph % (Auto) 6.3 L, [place] % (Auto) 10.1 H, Eos % (Auto) 2.7, Baso % (Auto) 0.7, Absolute Neuts (auto) 6.6, Absolute Lymphs (auto) 0.53 L, Nucleated RBC % 0, Diff Path Review September03/12/19 05:00: PT Cancelled, INR Cancelled, APTT Cancelled 03/12/19 07:00: Total Bilirubin 0.80, Direct Bilirubin 0.47 H, AST 10 L, ALT 18, Alkaline Phosphatase 147 H, Total Protein 5.4 L, Albumin 2.0 L, Globulin 3.4, Prealbumin 5.9 L 03/12/19 07:10: PT 16.3 H, INR 1.3, APTT 32.2 Current Medications Acetaminophen (Tylenol) 650 mg PO Q6H PRN PRN PRN Reason: Mild Pain (1-3)/Temp > 100.7 F Last Admin: 03/12/19 13:58 Dose: 650 mg Documented by: Albuterol Sulfate (Ventolin Aerosols) 2.5 mg INHALATION Q2H PRN PRN PRN Reason: Shortness of Breath/Wheezing Dextrose (D50w Syringe) 0 gm IV X1 PRN; Protocol PRN Reason: Hypoglycemia Fluticasone Propionate (Flonase Nasal [place]) 1 spray NASAL DAILY [facility] Last Admin: 03/12/19 10:03 Dose: 1 spray Documented by: Glucagon () 1 mg IM .X1 PRN PRN Reason: Hypoglycemia Sodium Chloride () 250 mls @ 15 mls/hr IV .[id number] PRN PRN Reason: Saline Flush Cefepime HCl 1 gm/ Sodium (Chloride) 50 mls @ 100 mls/hr IV Q24 JORDI Last Infusion: 03/12/19 12:35 Dose: Infused Documented by: Lactated Ringer's () 1,000 mls @ 100 mls/hr IV .Q10H JORDI Last Infusion: 03/12/19 12:35 Dose: 125 mls/hr Documented by: Ondansetron HCl (Zofran) 4 mg IV Q8H PRN PRN PRN Reason: NAUSEA/VOMITING Last Admin: 03/12/19 06:21 Dose: 4 mg Documented by: Pantoprazole Sodium (Protonix) 40 mg PO DAILY [facility] Last Admin: 03/12/19 10:04 Dose: 40 mg Documented by: Polyethylene Glycol (Miralax) 17 gm PO DAILY [facility] Last Admin: 03/12/19 10:04 Dose: 17 gm Documented by: Promethazine HCl (Phenergan) 12.5 mg IV Q6H PRN PRN PRN Reason: Breakthrough nausea/vomiting Propranolol HCl (Inderal) 40 mg PO DAILY [facility] Last Admin: 03/12/19 10:03 Dose: 40 mg Documented by: Psyllium Hydrophilic Mucilloid (Metamucil) 1 packet PO DAILY [facility] Last Admin: 03/12/19 10:03 Dose: 1 packet Documented by: Sodium Chloride () 10 - 40 ml IV UD PRN PRN Reason: SALINE FLUSH Last Admin: 03/12/19 06:21 Dose: 10 ml Documented by: Medical Necessity - Tobacco Use Smoking Status: Never smoker Assessment/Plan All Active Problems Dizziness (Acute) Acute kidney injury (Acute) Near syncope (Acute) Dehydration (Acute) Urinary tract infection (Acute) 1. Acute kidney injury. No prior history of CKD. Most recently available SCr was from 01/2104 at 1.2 mg/dL. Will check with Dr. Cardoza's office to see if there is more recent SCr. Suspect MONICA is prerenal from poor oral intake due to GI complaints which is made worse by the concurrent use of NSAID. She may have also progressed to ATN as well. Renal function is better today. Other possibility is AIN from NSAID use, especially since she has significant proteinuria. Low suspicion for other causes of MONICA at this point. Renal US did show BL mild hydronephrosis. My suspicion for obstructive uropathy is low since renal function has improved and she is not oliguric. However, if SCr hangs up tomorrow, I will consult urology. Would not restart NSAID. Continue IVF today since oral intake is still marginal. No urgent need for kidney replacement therapy. Current medications are reviewed. No need to change dosage for current CrCl. 2. Hypokalemia. Resolved. Was likely due to GI loss. Mg is OK at 1.7. Recheck K level in am. 3. Acidosis. Serum bicarbonate level is 17. This is likely due to MONICA as well as NS. Will switch the patient to LR. Recheck HCO3 in am. 4. Anemia. The patient has normocytic anemia. Mild thrombocytopenia. Doubt she has aHUS as Hgb and platelet counts have stabilized. 5. Klebsiella UTI. Antibiotic as per hospital medicine service. Above discussed with Dr. Woodward.
--- NOTE | 2019-03-12 19:42 | PN.SURG_ITS ---
Patient Problems: Active and Suspected Problems Dizziness (Acute) Acute kidney injury (Acute) Subjective: overall patient less obtunded, no complaints of abdominal pain - Physical Exam Vitals/I&O's: Vital Signs Temp Pulse Resp BP Pulse Ox 98.6 F 81 16 152/67 H 95 03/12/19 13:51 03/12/19 13:51 03/12/19 13:51 03/12/19 13:51 03/12/19 13:51 Oxygen Delivery Method Room Air Weight: 85.9 kg Body Mass Index (BMI) 32.5 Finger Stick Blood Glucose 123 Intake and Output for Last 24 Hours 03/10/19 03/11/19 03/12/19 23:59 23:59 23:59 Intake Total 1860 / 1860 4380.42 / 4380.42 1352.08 / 1352.08 Output Total 202 / 202 850 / 850 500 / 500 Balance 1658 / 1658 3530.42 / 3530.42 852.08 / 852.08 General: Alert, Oriented x3, - - significant edema consistent with anasarca versus nephrotic picture Lungs: Clear to auscultation, Normal air movement Cardiovascular: Regular rate, Regular Rhythm Abdomen: Bowel Sounds Present, Soft, Non Tender Extremities: Edema Microbiology Past 72 Hours 03/10/19 16:28 Urine, Clean Catch Urine Culture - Final Klebsiella pneumoniae sp pneum 03/11/19 09:55 Stool Stool Lactoferrin - Final 03/11/19 09:55 Stool Enteric Bacteriology - Final 03/11/19 09:55 Stool Stool Occult Blood (MINNA) - Final Occult Blood Positive Laboratory Results 03/11/19 22:21: Hgb 9.6 L, Hct 28.4 L 03/12/19 05:00: Sodium 140, Potassium 3.8, Chloride 115 H, Carbon Dioxide 17.0 L , Anion Gap 8, BUN 27 H, Creatinine 2.93 H, Estim Creat Clear Calc 14.33, Est GFR (MDRD) Af Amer 20 L, Est GFR (MDRD) Non-Af 17 L, BUN/Creatinine Ratio 9.2 L, Glucose 107 H, Calcium 7.7 L, Magnesium 1.7, Albumin 2.1 L 03/12/19 05:00: WBC 8.4, RBC 2.92 L, Hgb 9.3 L, Hct 27.7 L, MCV 94.9, MCH 31.8, MCHC 33.6, RDW Std Deviation 46.4 H, RDW Coeff of Ricky 13.4, Plt Count 125 L, MPV 10.6, Immature Gran % (Auto) 1.500 H, Neut % (Auto) 78.7 H, Lymph % (Auto) 6.3 L , [place] % (Auto) 10.1 H, Eos % (Auto) 2.7, Baso % (Auto) 0.7, Absolute Neuts (auto) 6.6, Absolute Lymphs (auto) 0.53 L, Nucleated RBC % 0, Diff Path Review September03/12/19 05:00: PT Cancelled, INR Cancelled, APTT Cancelled 03/12/19 07:00: Total Bilirubin 0.80, Direct Bilirubin 0.47 H, AST 10 L, ALT 18, Alkaline Phosphatase 147 H, Total Protein 5.4 L, Albumin 2.0 L, Globulin 3.4, Prealbumin 5.9 L 03/12/19 07:10: PT 16.3 H, INR 1.3, APTT 32.2 Current Medications Acetaminophen (Tylenol) 650 mg PO Q6H PRN PRN PRN Reason: Mild Pain (1-3)/Temp > 100.7 F Last Admin: 03/12/19 13:58 Dose: 650 mg Documented by: Albuterol Sulfate (Ventolin Aerosols) 2.5 mg INHALATION Q2H PRN PRN PRN Reason: Shortness of Breath/Wheezing Dextrose (D50w Syringe) 0 gm IV X1 PRN; Protocol PRN Reason: Hypoglycemia Fluticasone Propionate (Flonase Nasal [place]) 1 spray NASAL DAILY [facility] Last Admin: 03/12/19 10:03 Dose: 1 spray Documented by: Glucagon () 1 mg IM .X1 PRN PRN Reason: Hypoglycemia Sodium Chloride () 250 mls @ 15 mls/hr IV .[id number] PRN PRN Reason: Saline Flush Cefepime HCl 1 gm/ Sodium (Chloride) 50 mls @ 100 mls/hr IV Q24 JORDI Last Infusion: 03/12/19 12:35 Dose: Infused Documented by: Lactated Ringer's () 1,000 mls @ 100 mls/hr IV .Q10H JORDI Last Infusion: 03/12/19 12:35 Dose: 125 mls/hr Documented by: Ondansetron HCl (Zofran) 4 mg IV Q8H PRN PRN PRN Reason: NAUSEA/VOMITING Last Admin: 03/12/19 06:21 Dose: 4 mg Documented by: Pantoprazole Sodium (Protonix) 40 mg PO DAILY [facility] Last Admin: 03/12/19 10:04 Dose: 40 mg Documented by: Polyethylene Glycol (Miralax) 17 gm PO DAILY [facility] Last Admin: 03/12/19 10:04 Dose: 17 gm Documented by: Promethazine HCl (Phenergan) 12.5 mg IV Q6H PRN PRN PRN Reason: Breakthrough nausea/vomiting Propranolol HCl (Inderal) 40 mg PO DAILY [facility] Last Admin: 03/12/19 10:03 Dose: 40 mg Documented by: Psyllium Hydrophilic Mucilloid (Metamucil) 1 packet PO DAILY [facility] Last Admin: 03/12/19 10:03 Dose: 1 packet Documented by: Sodium Chloride () 10 - 40 ml IV UD PRN PRN Reason: SALINE FLUSH Last Admin: 03/12/19 06:21 Dose: 10 ml Documented by: Medical Necessity - Tobacco Use Smoking Status: Never smoker Assessment/Plan All Active Problems Dizziness (Acute) Acute kidney injury (Acute) Near syncope (Acute) Dehydration (Acute) Urinary tract infection (Acute) heme positive stools, failure to thrive- Discussions with patient and today -they feel these issues occurred relatively promptly after starting Elavil as a treatment option for her irritable bowel syndrome with constipation predominance. The patient noted onset of right flank pain along with foul-smelling urine after a few weeks of that medication. She also noted increasing nonsteroidal use initially due to the flank pain. She wasn't truly discussing initial symptoms of worsening abdominal complaints. She also noted no bleeding per rectum or melena, but did note one episode of which describes as coffee ground emesis after earlier vomiting approximately week before admission. She noted that she had decreased her NSAID intake after that event. The patient and her noted increasing somnolence and decreased energy as these events progressed. Patient clinically appears nephrotic with significant edema and low protein and albumin levels. This seems advanced to be caused by poor oral intake alone given the length of time of this event. Upper endoscopy did not truly reveal any significant bleeding sources. The e ntire GI tract seemed friable. This was felt to be secondary to probably her low protein state/nephrotic findings. She did have a small hiatal hernia and a Schatzki's ring consistent with reflux but no obvious recent signs of bleeding. I healed Courtney-Harvey tear is feasible given her history. Agree with continued treatment for her urinary tract infection. Appreciate nephrology's input given her acute renal failure.
[2019-03-13 02:20] VITALS: BP 154/82; PULSE 86; RESP 16; TEMP 36.7; O2SAT 96
[2019-03-13] MEDS: Lactated Ringers 1,000 ML 125 ML IV (06:28)
[2019-03-13 07:15] VITALS: O2SAT 94
[2019-03-13 07:16] VITALS: BP 155/75; PULSE 76; RESP 20; TEMP 37.2; O2SAT 96
[2019-03-13 07:16] LABS: Absolute Lymphocyte Count 0.55 X10^3/uL (0.83-4.51); Absolute Neutrophil Count 6.8 X10^3/uL (2.0-7.7); Basophil# 0.05 X10^3/uL; Basophil% 0.6 % (0-1); Eosinophils% 2.3 % (0-5); Hematocrit 27.3 % (37-47); Hemoglobin 8.9 g/dL (12.0-15.0); Lymphocyte # 0.55 X10^3/ul (4.0); Lymphocyte % 6.4 % (19-41); Mean Corp Hgb Conc 32.6 g/dL (32-36); Mean Corpuscular Hgb 31.8 pg (27.0-32.0); Mean Corpuscular Volume 97.5 fL (81-99); Monocyte# 0.92 X10^3/uL; Monocyte% 10.6 % (0-10); NRBC Flagged by Analyzer 0 % (0-5); Neutrophil # 6.77 X10^3/uL (2.7-7.7); Neutrophil % 78.4 % (47-70); POSITIVE DIFFERENTIAL YES; Platelet Count 126 K/mm3 (150-450); RBC Distribution Width CV 13.8 % (11.6-14.6); RBC Distribution Width SD 49.1 fl (35.1-43.9); White Blood Count 8.6 K/mm3 (4.4-11.0)
[2019-03-13 07:22] LABS: Differential Indicated SCAN CRITERIA MET
[2019-03-13 07:26] LABS: Anion Gap 8 (5-15); BUN 27 mg/dL (7-18); BUN/Creat Ratio 9.2 RATIO (10-20); Calcium,Total 8.1 mg/dL (8.5-10.1); Chloride 116 mmol/L (98-107); Creatinine, Serum 2.94 mg/dL (0.55-1.02); EST Glomerular Filtration Rate 17 mL/min (>60); Est Glom Filt Rate - Afr Amer 20 mL/min (>60); Estimated Creatinine Clearance 14.28 ml/min; Glucose 107 mg/dL (74-106); Potassium 4.3 mmol/L (3.5-5.1); Sodium Level 142 mmol/L (136-145)
[2019-03-13] MEDS: Psyllium 1 PACKET PO (08:20)
[2019-03-13] MEDS: Polyethylene Glycol 3350 17 GM PACKET PO (08:20)
[2019-03-13] MEDS: Fluticasone 0.05% 1 SPRAY NASAL.SRY NASAL (08:21)
[2019-03-13] MEDS: Pantoprazole Sodium 40 MG Tablet PO (08:21)
[2019-03-13 08:22] LABS: Platelet Estimate ADEQUATE (ADEQ); Red Cell Morphology NORM C+C NORMAL (NORM C&C)
[2019-03-13] MEDS: Propranolol 40 MG Tablet PO (08:22)
[2019-03-13 11:46] LABS: Pathologist Review Reviewed
[2019-03-13 12:09] VITALS: BP 154/71; PULSE 66; RESP 16; TEMP 37; O2SAT 98
[2019-03-13] MEDS: Ensure Clear 120 ML Liquid PO ×3 (13:23→22:15)
--- NOTE | 2019-03-13 13:45 | PCM.PN.SRG ---
Patient Problems: Active and Suspected Problems Dizziness (Acute) Acute kidney injury (Acute) Subjective: no abdominal pain, tolerating diet - Physical Exam Vitals/I&O's: Vital Signs Temp Pulse Resp BP Pulse Ox 98.6 F 66 16 154/71 H 98 03/13/19 12:09 03/13/19 12:09 03/13/19 12:09 03/13/19 12:09 03/13/19 12:09 Oxygen Delivery Method Room Air Weight: 85.9 kg Body Mass Index (BMI) 32.5 Finger Stick Blood Glucose 123 Intake and Output for Last 24 Hours 03/11/19 03/12/19 03/13/19 23:59 23:59 23:59 Intake Total 4380.42 / 4380.42 2250.00 / 2450.00 2725 / 2725 Output Total 850 / 850 500 / 500 1600 / 1600 Balance 3530.42 / 3530.42 1750.00 / 1950.00 1125 / 1125 General: Alert, Oriented x3, - - panedematous Lungs: Clear to auscultation, Normal air movement Cardiovascular: Regular rate, Regular Rhythm Abdomen: Soft, Non Tender Microbiology Past 72 Hours 03/10/19 16:28 Urine, Clean Catch Urine Culture - Final Klebsiella pneumoniae sp pneum 03/11/19 09:55 Stool Stool Lactoferrin - Final 03/11/19 09:55 Stool Enteric Bacteriology - Final 03/11/19 09:55 Stool Stool Occult Blood (MINNA) - Final Occult Blood Positive Laboratory Results 03/12/19 05:00: Diff Path Review Reviewed 03/13/19 05:00: Sodium 142, Potassium 4.3, Chloride 116 H, Carbon Dioxide 18.0 L, Anion Gap 8, BUN 27 H, Creatinine 2.94 H, Estim Creat Clear Calc 14.28, Est GFR (MDRD) Af Amer 20 L, Est GFR (MDRD) Non-Af 17 L, BUN/Creatinine Ratio 9.2 L, Glucose 107 H, Calcium 8.1 L 03/13/19 05:00: WBC 8.6, RBC 2.80 L, Hgb 8.9 L, Hct 27.3 L, MCV 97.5, MCH 31.8, MCHC 32.6, RDW Std Deviation 49.1 H, RDW Coeff of Ricky 13.8, Plt Count 126 L, MPV 12.0, Immature Gran % (Auto) 1.700 H, Neut % (Auto) 78.4 H, Lymph % (Auto) 6.4 L, [place] % (Auto) 10.6 H, Eos % (Auto) 2.3, Baso % (Auto) 0.6, Absolute Neuts (auto) 6.8, Absolute Lymphs (auto) 0.55 L, Nucleated RBC % 0, Platelet Estimate ADEQUATE, RBC Morphology NORM C+C Current Medications Acetaminophen (Tylenol) 650 mg PO Q6H PRN PRN PRN Reason: Mild Pain (1-3)/Temp > 100.7 F Last Admin: 03/12/19 13:58 Dose: 650 mg Documented by: Albuterol Sulfate (Ventolin Aerosols) 2.5 mg INHALATION Q2H PRN PRN PRN Reason: Shortness of Breath/Wheezing Dextrose (D50w Syringe) 0 gm IV X1 PRN; Protocol PRN Reason: Hypoglycemia Fluticasone Propionate (Flonase Nasal [place]) 1 spray NASAL DAILY [facility] Last Admin: 03/13/19 08:21 Dose: 1 spray Documented by: Glucagon () 1 mg IM .X1 PRN PRN Reason: Hypoglycemia Sodium Chloride () 250 mls @ 15 mls/hr IV .[id number] PRN PRN Reason: Saline Flush Cefepime HCl 1 gm/ Sodium (Chloride) 50 mls @ 100 mls/hr IV Q24 [facility] Last Infusion: 03/13/19 11:19 Dose: Infused Documented by: Lactated Ringer's () 1,000 mls @ 100 mls/hr IV .Q10H [facility] Last Infusion: 03/13/19 11:19 Dose: 100 mls/hr Documented by: Nutritional Formula (Lactose Free) (Ensure Clear) 120 ml PO 4X/DAY [facility] Last Admin: 03/13/19 13:23 Dose: 120 ml Documented by: Ondansetron HCl (Zofran) 4 mg IV Q8H PRN PRN PRN Reason: NAUSEA/VOMITING Last Admin: 03/12/19 06:21 Dose: 4 mg Documented by: Pantoprazole Sodium (Protonix) 40 mg PO DAILY [facility] Last Admin: 03/13/19 08:21 Dose: 40 mg Documented by: Polyethylene Glycol (Miralax) 17 gm PO DAILY [facility] Last Admin: 03/13/19 08:20 Dose: 17 gm Documented by: Promethazine HCl (Phenergan) 12.5 mg IV Q6H PRN PRN PRN Reason: Breakthrough nausea/vomiting Propranolol HCl (Inderal) 40 mg PO DAILY [facility] Last Admin: 03/13/19 08:22 Dose: 40 mg Documented by: Psyllium Hydrophilic Mucilloid (Metamucil) 1 packet PO DAILY [facility] Last Admin: 03/13/19 08:20 Dose: 1 packet Documented by: Sodium Chloride () 10 - 40 ml IV UD PRN PRN Reason: SALINE FLUSH Last Admin: 03/12/19 06:21 Dose: 10 ml Documented by: Medical Necessity - Tobacco Use Smoking Status: Never smoker Assessment/Plan All Active Problems Dizziness (Acute) Acute kidney injury (Acute) Near syncope (Acute) Dehydration (Acute) Urinary tract infection (Acute) heme positive stools, failure to thrive- Discussions with patient and today -they feel these issues occurred relatively promptly after starting Elavil as a treatment option for her irritable bowel syndrome with constipation predominance. The patient noted onset of right flank pain along with foul-smelling urine after a few weeks of that medication. She also noted increasing nonsteroidal use initially due to the flank pain. She wasn't truly discussing initial symptoms of worsening abdominal complaints. She also noted no bleeding per rectum or melena, but did note one episode of which describes as coffee ground emesis after earlier vomiting approximately week before admission. She noted that she had decreased her NSAID intake after that event. The patient and her noted increasing somnolence and decreased energy as these events progressed. Patient clinically appears nephrotic with significant edema and low protein and albumin levels. This seems advanced to be caused by poor oral intake alone given the length of time of this event. Upper endoscopy did not truly reveal any significant bleeding sources. The entire GI tract seemed friable. This was felt to be secondary to probably her low protein state/nephrotic findings. She did have a small hiatal hernia and a Schatzki's ring consistent with reflux but no obvious recent signs of bleeding. I healed Courtney-Harvey tear is feasible given her history. Agree with continued treatment for her urinary tract infection. Appreciate nephrology's input given her acute renal failure. patient was still elevated creatinine and significant protein spilling in the urine-nephrotic syndrome Patient states she has been eating well throughout the event of back pain and these recent issues. I have ordered a nutrition consult to try to gauge exactly what her calorie intake for the last few weeks has been and recommendation for dietary intake given her renal issues.
[2019-03-13 15:00] VITALS: BP 154/78; PULSE 80; RESP 18; TEMP 35.8; O2SAT 95
--- NOTE | 2019-03-13 15:49 | PCM.PN.HOSP ---
Patient Problems: Active and Suspected Problems Dizziness (Acute) Acute kidney injury (Acute) Subjective: Seen and examined. Patient feels a little sad and wants to go home. Not much improvement in kidney function as per labs. Patient is having good urine output. About 1500 mils daily Vitals/I&O's: Vital Signs Temp Pulse Resp BP Pulse Ox 96.5 F L 80 18 154/78 H 95 03/13/19 15:00 03/13/19 15:00 03/13/19 15:00 03/13/19 15:00 03/13/19 15:00 Oxygen Delivery Method Room Air Weight: 189 lb 6.033 oz Body Mass Index (BMI) 32.5 Finger Stick Blood Glucose 123 Intake and Output for Last 24 Hours 03/11/19 03/12/19 03/13/19 23:59 23:59 23:59 Intake Total 4380.42 / 4380.42 2250.00 / 2450.00 2725 / 2725 Output Total 850 / 850 500 / 500 1600 / 1600 Balance 3530.42 / 3530.42 1750.00 / 1950.00 1125 / 1125 General: Alert, Oriented x3, Cooperative HEENT: Atraumatic, PERRLA, EOMI, Normocephalic Neck: Supple, No JVD, Negative Carotid Bruits Lungs: Clear to auscultation, Normal air movement, No rhonchi, No wheeze, No rales Cardiovascular: Regular rate, Regular Rhythm, Normal S1, Normal S2, No murmurs Abdomen: Bowel Sounds Present, Soft, Non Tender, Non-Distended Extremities: Capillary Refill Less than 3 Seconds, Edema Skin: No rashes, No breakdown Musculoskeletal: No Tenderness to Palpation of Joints or Extremities, Arthritic Changes Neurological: Cranial nerves II-XII grossly intact, Deep Tendon Reflexes 2+/4 and Symmetrical, Neuro grossly intact Psych/Mental Status: Normal Affect, Appropriate Microbiology Past 72 Hours 03/10/19 16:28 Urine, Clean Catch Urine Culture - Final Klebsiella pneumoniae sp pneum 03/11/19 09:55 Stool Stool Lactoferrin - Final 03/11/19 09:55 Stool Enteric Bacteriology - Final 03/11/19 09:55 Stool Stool Occult Blood (MINNA) - Final Occult Blood Positive Laboratory Results 03/12/19 05:00: Diff Path Review Reviewed 03/13/19 05:00: Sodium 142, Potassium 4.3, Chloride 116 H, Carbon Dioxide 18.0 L, Anion Gap 8, BUN 27 H, Creatinine 2.94 H, Estim Creat Clear Calc 14.28, Est GFR (MDRD) Af Amer 20 L, Est GFR (MDRD) Non-Af 17 L, BUN/Creatinine Ratio 9.2 L, Glucose 107 H, Calcium 8.1 L 03/13/19 05:00: WBC 8.6, RBC 2.80 L, Hgb 8.9 L, Hct 27.3 L, MCV 97.5, MCH 31.8, MCHC 32.6, RDW Std Deviation 49.1 H, RDW Coeff of Ricky 13.8, Plt Count 126 L, MPV 12.0, Immature Gran % (Auto) 1.700 H, Neut % (Auto) 78.4 H, Lymph % (Auto) 6.4 L, [place] % (Auto) 10.6 H, Eos % (Auto) 2.3, Baso % (Auto) 0.6, Absolute Neuts (auto) 6.8, Absolute Lymphs (auto) 0.55 L, Nucleated RBC % 0, Platelet Estimate ADEQUATE, RBC Morphology NORM C+C Current Medications Acetaminophen (Tylenol) 650 mg PO Q6H PRN PRN PRN Reason: Mild Pain (1-3)/Temp > 100.7 F Last Admin: 03/12/19 13:58 Dose: 650 mg Documented by: Albuterol Sulfate (Ventolin Aerosols) 2.5 mg INHALATION Q2H PRN PRN PRN Reason: Shortness of Breath/Wheezing Dextrose (D50w Syringe) 0 gm IV X1 PRN; Protocol PRN Reason: Hypoglycemia Fluticasone Propionate (Flonase Nasal [place]) 1 spray NASAL DAILY [facility] Last Admin: 03/13/19 08:21 Dose: 1 spray Documented by: Glucagon () 1 mg IM .X1 PRN PRN Reason: Hypoglycemia Sodium Chloride () 250 mls @ 15 mls/hr IV .[id number] PRN PRN Reason: Saline Flush Cefepime HCl 1 gm/ Sodium (Chloride) 50 mls @ 100 mls/hr IV Q24 [facility] Last Infusion: 03/13/19 11:19 Dose: Infused Documented by: Lactated Ringer's () 1,000 mls @ 100 mls/hr IV .Q10H [facility] Last Infusion: 03/13/19 11:19 Dose: 100 mls/hr Documented by: Nutritional Formula (Lactose Free) (Ensure Clear) 120 ml PO 4X/DAY [facility] Last Admin: 03/13/19 13:23 Dose: 120 ml Documented by: Ondansetron HCl (Zofran) 4 mg IV Q8H PRN PRN PRN Reason: NAUSEA/VOMITING Last Admin: 03/12/19 06:21 Dose: 4 mg Documented by: Pantoprazole Sodium (Protonix) 40 mg PO DAILY [facility] Last Admin: 03/13/19 08:21 Dose: 40 mg Documented by: Polyethylene Glycol (Miralax) 17 gm PO DAILY [facility] Last Admin: 03/13/19 08:20 Dose: 17 gm Documented by: Promethazine HCl (Phenergan) 12.5 mg IV Q6H PRN PRN PRN Reason: Breakthrough nausea/vomiting Propranolol HCl (Inderal) 40 mg PO DAILY [facility] Last Admin: 03/13/19 08:22 Dose: 40 mg Documented by: Psyllium Hydrophilic Mucilloid (Metamucil) 1 packet PO DAILY [facility] Last Admin: 03/13/19 08:20 Dose: 1 packet Documented by: Sodium Chloride () 10 - 40 ml IV UD PRN PRN Reason: SALINE FLUSH Last Admin: 03/12/19 06:21 Dose: 10 ml Documented by: STROKE Vital Signs/Narrative: Vital Signs Temp Pulse Resp BP Pulse Ox 03/13/19 15:00 96.5 F L 80 18 154/78 H 95 03/13/19 12:09 98.6 F 66 16 154/71 H 98 Medical Necessity - Tobacco Use Smoking Status: Never smoker Assessment/Plan All Active Problems Dizziness (Acute) Acute kidney injury (Acute) Near syncope (Acute) Dehydration (Acute) Urinary tract infection (Acute) The patient is a 73 year old F with history of chronic abdominal pain for more than 5 years came to ER with dizziness, nausea off balance, gait instability and a spinning sensation for last 3 weeks. Patient also had one large vomiting, coffee-ground with black stool about 10 days ago. Patient denies blurry vision although she takes time/hesitation in her speech. Denies headache or slurring or previous history of TIA/stroke. In ED, vitals were found stable although respiratory rate 24. H&H on her baseline 10.5/29.9. BUN/creatinine 38/3.68, baseline 13/1.2 in 01/2014. Sodium 133. CT brain unremarkable. Chest x-ray no acute abnormality seen. EKG normal sinus rhythm, low voltage QRS, QTC 420 ms at 94 bpm [] 1. Dizziness, lightheadedness, near syncope mostly secondary to dehydration/Elavil side effect: Patient is being admitted on MedSur telemetry. CT head was unremarkable. MRI brain ordered. Patient does not have TIA or stroke in the past. NIH stroke scale 0. MRI brain reported no evidence of acute infarct. Empty sella deformity of uncertain clinical significance. 2. Acute kidney injury with oliguria with possible UTI with non-anion gap metabolic acidosis: BUN/creatinine seems more like ATN. Her previous BUN/creatinine was in January 2014. Sodium 133, chloride 114 bicarb 19 with anion gap 11, non-anion gap metabolic acidosis. Urine lites, urine sodium 37, chloride 29 and FENa 1.2 is more suggestive of ATN. Discussed with the liner worker. UA is positive of pyuria, nitrite, LE 500. Urine culture reported 52,000-80,000 Klebsiella pneumoniae sensitive to ceftriaxone and cefepime. Antibiotic changed to cefepime as patient on Ringer lactate for metabolic acidosis. Kidneys and bladder ultrasound reported mild degree of bilateral hydronephrosis. Nephrology suggested urology consult for bilateral mild hydronephrosis. Bladder scan every 4 hourly post void to see urine retention. 3. Non-anion gap metabolic acidosis secondary to acute kidney injury: Patient bicarb did not improve still 17, anion gap 8, sodium 140, chloride 115. IV fluid changed to Ringer lactate at 125 mill per hour. Monitor intake and output. Discussed with liner worker. 4. Chronic abdominal pain with no definite pattern of constipation/diarrhea with possible recent GI bleed: Stool for occult blood positive. Enteric bacteriology panel negative. Fecal WBC lactoferrin present. Patient had EGD done which shows friable vaginal mucosa, friable duodenal mucosa. Normal antrum. Multiple gastric polyps biopsied. Small hiatus hernia. Nonsevere reflux esophagitis. Mild Schatzki ring. Resume regular diet. On PPI. 4. Other chronic comorbidities include multiple abdominal surgeries, anxiety and depression: Home medication reconciliation 5. Acute on anemia of chronic disease: Dropped hemoglobin and platelet count therefore pharmacological prophylaxis discontinued. H&H 9.3. Platelet count 125. Iron studies shows ferritin 347, high transferrin saturation 10.9, serum iron and TIBC low suggestive of anemia of chronic disease. Hemoglobin is stable. Mild drop from 9.3-8.9. DVT prophylaxis on bilateral SCDs Management plan discussed with the patient and her . Laboratory Results 03/10/19 16:28: Urine Creatinine 68.70 03/10/19 16:28: Ur Random Sodium 37, Urine Potassium 15.0, Urine Chloride 29 Microbiology Past 72 Hours 03/10/19 16:28 Urine, Clean Catch Urine Culture - Final Klebsiella pneumoniae sp pneum 03/11/19 09:55 Stool Stool Lactoferrin - Final 03/11/19 09:55 Stool Enteric Bacteriology - Final 03/11/19 09:55 Stool Stool Occult Blood (MINNA) - Final Occult Blood Positive 03/11/19 22:21: Hgb 9.6 L, Hct 28.4 L 03/12/19 05:00: Sodium 140, Potassium 3.8, Chloride 115 H, Carbon Dioxide 17.0 L, Anion Gap 8, BUN 27 H, Creatinine 2.93 H, Estim Creat Clear Calc 14.33, Est GFR (MDRD) Af Amer 20 L, Est GFR (MDRD) Non-Af 17 L, BUN/Creatinine Ratio 9.2 L, Glucose 107 H, Calcium 7.7 L, Magnesium 1.7, Albumin 2.1 L 03/12/19 05:00: WBC 8.4, RBC 2.92 L, Hgb 9.3 L, Hct 27.7 L, MCV 94.9, MCH 31.8, MCHC 33.6, RDW Std Deviation 46.4 H, RDW Coeff of Ricky 13.4, Plt Count 125 L, MPV 10.6, Immature Gran % (Auto) 1.500 H, Neut % (Auto) 78.7 H, Lymph % (Auto) 6.3 L, [place] % (Auto) 10.1 H, Eos % (Auto) 2.7, Baso % (Auto) 0.7, Absolute Neuts (auto) 6.6, Absolute Lymphs (auto) 0.53 L, Nucleated RBC % 0, Diff Path Review September03/12/19 07:00: Total Bilirubin 0.80, Direct Bilirubin 0.47 H, AST 10 L, ALT 18, Alkaline Phosphatase 147 H, Total Protein 5.4 L, Albumin 2.0 L, Globulin 3.4, Prealbumin 5.9 L 03/12/19 07:10: PT 16.3 H, INR 1.3, APTT 32.2 Laboratory Results 03/12/19 05:00: Diff Path Review Reviewed 03/13/19 05:00: Sodium 142, Potassium 4.3, Chloride 116 H, Carbon Dioxide 18.0 L, Anion Gap 8, BUN 27 H, Creatinine 2.94 H, Estim Creat Clear Calc 14.28, Est GFR (MDRD) Af Amer 20 L, Est GFR (MDRD) Non-Af 17 L, BUN/Creatinine Ratio 9.2 L, Glucose 107 H, Calcium 8.1 L 03/13/19 05:00: WBC 8.6, RBC 2.80 L, Hgb 8.9 L, Hct 27.3 L, MCV 97.5, MCH 31.8, MCHC 32.6, RDW Std Deviation 49.1 H, RDW Coeff of Ricky 13.8, Plt Count 126 L, MPV 12.0, Immature Gran % (Auto) 1.700 H, Neut % (Auto) 78.4 H, Lymph % (Auto) 6.4 L, [place] % (Auto) 10.6 H, Eos % (Auto) 2.3, Baso % (Auto) 0.6, Absolute Neuts (auto) 6.8, Absolute Lymphs (auto) 0.55 L, Nucleated RBC % 0, Platelet Estimate ADEQUATE, RBC Morphology NORM C+C Code Visit Inpatient E&M: 62569 Subs Hosp L2
[2019-03-13] MEDS: Lactated Ringers 1,000 ML 100 ML IV (17:23)
--- NOTE | 2019-03-13 19:11 | PCM.PN.REN ---
Patient Problems: Active and Suspected Problems Dizziness (Acute) Acute kidney injury (Acute) Subjective: Following for MONICA. Patient denies CP or SOB at rest. has edema of LE. No nausea/vomiting, diarrhea. - Physical Exam Vitals/I&O's: Vital Signs Temp Pulse Resp BP Pulse Ox 96.5 F L 80 18 154/78 H 95 03/13/19 15:00 03/13/19 15:00 03/13/19 15:00 03/13/19 15:00 03/13/19 15:00 Oxygen Delivery Method Room Air Weight: 85.9 kg Body Mass Index (BMI) 32.5 Finger Stick Blood Glucose 123 Intake and Output for Last 24 Hours 03/11/19 03/12/19 03/13/19 23:59 23:59 23:59 Intake Total 4380.42 / 4380.42 2250.00 / 2450.00 3881.67 / 3881.67 Output Total 850 / 850 500 / 500 2800 / 2800 Balance 3530.42 / 3530.42 1750.00 / 1950.00 1081.67 / 1081.67 General: Alert, Oriented x3 HEENT: Atraumatic, EOMI Oral: Moist Mucosa Neck: Supple Lungs: Clear to auscultation Cardiovascular: Normal S1, Normal S2, No murmurs Abdomen: Bowel Sounds Present, Soft, Non Tender Extremities: Edema - 1+ LE Microbiology Past 72 Hours 03/10/19 16:28 Urine, Clean Catch Urine Culture - Final Klebsiella pneumoniae sp pneum 03/11/19 09:55 Stool Stool Lactoferrin - Final 03/11/19 09:55 Stool Enteric Bacteriology - Final 03/11/19 09:55 Stool Stool Occult Blood (MINNA) - Final Occult Blood Positive Laboratory Results 03/12/19 05:00: Diff Path Review Reviewed 03/13/19 05:00: Sodium 142, Potassium 4.3, Chloride 116 H, Carbon Dioxide 18.0 L, Anion Gap 8, BUN 27 H, Creatinine 2.94 H, Estim Creat Clear Calc 14.28, Est GFR (MDRD) Af Amer 20 L, Est GFR (MDRD) Non-Af 17 L, BUN/Creatinine Ratio 9.2 L, Glucose 107 H, Calcium 8.1 L 03/13/19 05:00: WBC 8.6, RBC 2.80 L, Hgb 8.9 L, Hct 27.3 L, MCV 97.5, MCH 31.8, MCHC 32.6, RDW Std Deviation 49.1 H, RDW Coeff of Ricky 13.8, Plt Count 126 L, MPV 12.0, Immature Gran % (Auto) 1.700 H, Neut % (Auto) 78.4 H, Lymph % (Auto) 6.4 L, [place] % (Auto) 10.6 H, Eos % (Auto) 2.3, Baso % (Auto) 0.6, Absolute Neuts (auto) 6.8, Absolute Lymphs (auto) 0.55 L, Nucleated RBC % 0, Platelet Estimate ADEQUATE, RBC Morphology NORM C+C Current Medications Acetaminophen (Tylenol) 650 mg PO Q6H PRN PRN PRN Reason: Mild Pain (1-3)/Temp > 100.7 F Last Admin: 03/12/19 13:58 Dose: 650 mg Documented by: Albuterol Sulfate (Ventolin Aerosols) 2.5 mg INHALATION Q2H PRN PRN PRN Reason: Shortness of Breath/Wheezing Dextrose (D50w Syringe) 0 gm IV X1 PRN; Protocol PRN Reason: Hypoglycemia Fluticasone Propionate (Flonase Nasal [place]) 1 spray NASAL DAILY [facility] Last Admin: 03/13/19 08:21 Dose: 1 spray Documented by: Glucagon () 1 mg IM .X1 PRN PRN Reason: Hypoglycemia Sodium Chloride () 250 mls @ 15 mls/hr IV .[id number] PRN PRN Reason: Saline Flush Cefepime HCl 1 gm/ Sodium (Chloride) 50 mls @ 100 mls/hr IV Q24 [facility] Last Infusion: 03/13/19 11:19 Dose: Infused Documented by: Lactated Ringer's () 1,000 mls @ 75 mls/hr IV .[id number] [facility] Nutritional Formula (Lactose Free) (Ensure Clear) 120 ml PO 4X/DAY [facility] Last Admin: 03/13/19 17:21 Dose: 120 ml Documented by: Ondansetron HCl (Zofran) 4 mg IV Q8H PRN PRN PRN Reason: NAUSEA/VOMITING Last Admin: 03/12/19 06:21 Dose: 4 mg Documented by: Pantoprazole Sodium (Protonix) 40 mg PO DAILY [facility] Last Admin: 03/13/19 08:21 Dose: 40 mg Documented by: Polyethylene Glycol (Miralax) 17 gm PO DAILY [facility] Last Admin: 03/13/19 08:20 Dose: 17 gm Documented by: Promethazine HCl (Phenergan) 12.5 mg IV Q6H PRN PRN PRN Reason: Breakthrough nausea/vomiting Propranolol HCl (Inderal) 40 mg PO DAILY [facility] Last Admin: 03/13/19 08:22 Dose: 40 mg Documented by: Psyllium Hydrophilic Mucilloid (Metamucil) 1 packet PO DAILY [facility] Last Admin: 03/13/19 08:20 Dose: 1 packet Documented by: Sodium Chloride () 10 - 40 ml IV UD PRN PRN Reason: SALINE FLUSH Last Admin: 03/12/19 06:21 Dose: 10 ml Documented by: Medical Necessity - Tobacco Use Smoking Status: Never smoker Assessment/Plan All Active Problems Dizziness (Acute) Acute kidney injury (Acute) Near syncope (Acute) Dehydration (Acute) Urinary tract infection (Acute) 1. Acute kidney injury. No prior history of CKD. Most recently available SCr was from 01/2104 at 1.2 mg/dL. Suspect MONICA was initially prerenal from poor oral intake due to GI complaints which is made worse by the concurrent use of NSAID. She has likely progressed to ATN. Other possibility is AIN from NSAID use, especially since she has significant proteinuria-see below. Renal US did show BL mild hydronephrosis. My suspicion for obstructive uropathy is low since renal function has improved and she is not oliguric. Although I still think that she most likely has ATN, we should consult urology to assess BL hydronephrosis since SCr improvement has hung up. Would not restart NSAID. Continue IVF today but will decrease rate. No urgent need for kidney replacement therapy. Current medications are reviewed. No need to change dosage for current CrCl. 2. Proteinuria. UPCR is 1.97 g/g. Patient is not diabetic. Proteinuria could possibly be due to chronic use of NSAID which can be associated with AIN accompanied by significant proteinuria. Would not restart NSAID. Will need follow up in the office for proteinuria. 2. Hypokalemia. Resolved. Was likely due to GI loss. Mg is OK at 1.7 on 03/12/19. Recheck K level in am. 3. Acidosis. Serum bicarbonate level is 18. This is likely due to MONICA as well as NS. Switched the patient to LR on 03/12/19. Recheck HCO3 in am. 4. Anemia. The patient has normocytic anemia. Mild thrombocytopenia. Doubt she has aHUS as Hgb and platelet counts have stabilized. 5. Klebsiella UTI. Antibiotic as per hospital medicine service. Above discussed with Dr. Woodward.
[2019-03-13 21:00] VITALS: BP 164/83; PULSE 77; RESP 16; TEMP 36.7; O2SAT 98
[2019-03-14] MEDS: Lactated Ringers 1,000 ML 75 ML IV (03:29)
[2019-03-14 03:31] VITALS: BP 166/82; PULSE 75; RESP 16; TEMP 36.8; O2SAT 98
[2019-03-14 07:48] LABS: Absolute Lymphocyte Count 0.67 X10^3/uL (0.83-4.51); Absolute Neutrophil Count 5.8 X10^3/uL (2.0-7.7); Basophil# 0.03 X10^3/uL; Basophil% 0.4 % (0-1); Eosinophil# 0.36 X10^3/uL; Eosinophils% 4.7 % (0-5); Hematocrit 24.3 % (37-47); Hemoglobin 8.2 g/dL (12.0-15.0); Lymphocyte # 0.67 X10^3/ul (4.0); Lymphocyte % 8.7 % (19-41); Mean Corp Hgb Conc 33.7 g/dL (32-36); Mean Corpuscular Hgb 31.5 pg (27.0-32.0); Mean Corpuscular Volume 93.5 fL (81-99); Mean Platelet Vol. 10.7 fl (6.2-12.0); Monocyte# 0.67 X10^3/uL; Monocyte% 8.7 % (0-10); NRBC Flagged by Analyzer 0 % (0-5); Neutrophil # 5.77 X10^3/uL (2.7-7.7); Platelet Count 183 K/mm3 (150-450); RBC Distribution Width CV 13.7 % (11.6-14.6); RBC Distribution Width SD 46.6 fl (35.1-43.9); White Blood Count 7.7 K/mm3 (4.4-11.0)
[2019-03-14 08:09] LABS: Albumin, Serum 1.9 g/dL (3.2-5.0); BUN 20 mg/dL (7-18); BUN/Creat Ratio 8.8 RATIO (10-20); Chloride 112 mmol/L (98-107); Creatinine, Serum 2.26 mg/dL (0.55-1.02); EST Glomerular Filtration Rate 22 mL/min (>60); Est Glom Filt Rate - Afr Amer 27 mL/min (>60); Estimated Creatinine Clearance 18.57 ml/min; Glucose 107 mg/dL (74-106); Potassium 3.3 mmol/L (3.5-5.1); Sodium Level 141 mmol/L (136-145)
--- NOTE | 2019-03-14 08:27 | PCM.CONS.U ---
Reason for Consult Date of Consultation: 03/14/19 Reason for Consultation: Mild bilateral hydronephrosis History of Present Illness: The patient is a 73 year old female admitted for medical problems was found to have acute renal insufficiency. Recent ultrasound was done on the and the reading came back with mild bilateral hydronephrosis. I agree with nephrology I do not think that there is any obstruction causing her renal insufficiency, the amount of hydronephrosis on ultrasound is very minimal. Certainly a CAT scan to evaluate the kidneys further as possible but I am not recommending this at this point unless there is a change in her clinical presentation. She does not have any flank pain. No gross hematuria. She reports a concentrated urine. Her clinical picture appears to be more of a medical renal disease. Fortunately her creatinine is been improving last several days. She does have a history of kidney stones but again no current signs on this visit that she is has any obstruction. Past Medical History Past Medical History (Chronic Problems): Chronic Problems Chronic abdominal pain (Chronic) Allergies codeine Allergy (Verified 03/10/19 08:49) Nausea ANESTHETICS Allergy (Uncoded 03/10/19 08:49) Vomiting Home Medications: Ambulatory Orders Medication Instructions Recorded Fluticasone 0.05% [Flonase Nasal 1 spray NASAL DAILY 02/14/14 [place]] Naproxen [Naprosyn] 500 mg PO DAILY 02/14/14 Polyethylene Glycol 3350 [Miralax] 17 gm PO DAILY 02/14/14 Propranolol HCl [Inderal (Beta 40 mg PO DAILY 02/14/14 [place])] Psyllium [Metamucil] 1 packet PO DAILY 02/14/14 Dicyclomine HCl [Bentyl] 10 mg PO ACHS 03/10/19 Lansoprazole [Prevacid] 15 mg PO DAILY 03/10/19 Surgical History: appendectomy, cholecystectomy, hysterectomy, tonsillectomy, - - Salpingoophorectomy Psychiatric History: No pertinent psych hx 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 Smoking Status: Never smoker - *Family History Maternal History Items: No pertinent history Paternal History Items: No pertinent history Review of Systems Constitutional: Denies: Chills, Fever, Weight Change HEENT: Denies: Head Aches, Sinus Congestion, Sinus Drainage Cardiovascular: Denies: Chest Pain, Palpitations Respiratory: Denies: Cough, Shortness of breath at rest, Sputum production Gastrointestinal: Denies: Abdominal Pain, Nausea, Vomiting Genitourinary: Denies: Dysuria Musculoskeletal: Denies: Joint Pain, Joint Tenderness Skin: Denies: Rash, Wounds Neurological: Denies: Numbness, Tingling, Focal weakness Psychiatric: Denies: Anxiety, Depression, Homicidal Ideations, Suicidal Ideations Hematologic/ Lymphatic: Denies: Easy Bruising, Easy Bleeding Physical Exam - Physical Exam Vital Signs Temp 98.3 F 03/14/19 03:31 Pulse 75 03/14/19 03:31 Resp 16 03/14/19 03:31 BP 166/82 H 03/14/19 03:31 Pulse Ox 98 03/14/19 03:31 Intake & Output 03/12/19 03/13/19 03/14/19 23:59 23:59 23:59 Intake Total 2250.00 / 2450.00 3881.67 / 4281.67 1760 / 1760 Output Total 500 / 500 2800 / 3250 875 / 875 Balance 1750.00 / 1950.00 1081.67 / 1031.67 885 / 885 Weight: 85.9 kg 85.9 kg Intake: Oral 1900 / 2300 760 / 760 Intake, IV Amount 2250.00 / 2250.00 1981.67 / 1980.67 1000 / 1000 0.9% Normal Saline 1,000 ML @ 1150.00 / 1150.00 125 mls/hr IV .Q8H JORDI Rx#: [id number] Lactated Ringers 1,000 ML @ 100 1000.00 / 1000.00 1931.67 / 193.67 1000 / 1000 mls/hr IV .Q10H JORDI Rx#: [id number] Maxipime 1 GM In 0.9% Normal 50 / 50 50 / 50 Saline 50 ML @ 100 mls/hr IV Q24 JORDI Rx#:[id number] Rocephin 1 gm In 50 ml @ 100 50 / 50 mls/hr IV Q24 JORDI Rx#:[id number] Output: Urine 500 / 500 2800 / 3250 875 / 875 Other: Number of Voids 1 Number of Bowel Movements 1 General: Alert HEENT: Atraumatic Oral: Moist Mucosa Neck: Supple Lungs: Normal air movement Cardiovascular: Regular rate Abdomen: Soft Microbiology Past 72 Hours 03/10/19 16:28 Urine Culture - Final Urine, Clean Catch Klebsiella pneumoniae sp pneum 03/11/19 09:55 Stool Lactoferrin - Final Stool Enteric Bacteriology - Final Stool Occult Blood (MINNA) - Final Occult Blood Positive Laboratory Tests Past 24 Hrs 03/12/19 03/14/19 03/14/19 05:00 06:15 06:15 WBC 7.7 RBC 2.60 L Hgb 8.2 L Hct 24.3 L MCV 93.5 MCH 31.5 MCHC 33.7 RDW Std Deviation 46.6 H RDW Coeff of Ricky 13.7 Plt Count 183 MPV 10.7 Immature Gran % (Auto) 2.500 H Neut % (Auto) 75.0 H Lymph % (Auto) 8.7 L [place] % (Auto) 8.7 Eos % (Auto) 4.7 Baso % (Auto) 0.4 Absolute Neuts (auto) 5.8 Absolute Lymphs (auto) 0.67 L Nucleated RBC % 0 [address] Review Reviewed Sodium 141 Potassium 3.3 L Chloride 112 H Carbon Dioxide 22.0 BUN 20 H Creatinine 2.26 H Estim Creat Clear Calc 18.57 Est GFR (MDRD) Af Amer 27 L Est GFR (MDRD) Non-Af 22 L BUN/Creatinine Ratio 8.8 L Glucose 107 H Calcium 8.0 L Phosphorus 3.0 Albumin 1.9 L Assessment/Plan All Active Problems Dizziness (Acute) Acute kidney injury (Acute) Near syncope (Acute) Dehydration (Acute) Urinary tract infection (Acute) 73-year-old female admitted for multiple medical problems change in medication, found to have acute renal insufficiency, mild bilateral hydro-on ultrasound but again I agree with nephrology I do not think this is postobstructive this is probably either renal or prerenal. I do not think any further imaging from my standpoint is recommended unless there is any change in her clinical symptoms. Call me with questions.
[2019-03-14 09:00] VITALS: BP 155/80; PULSE 76; RESP 18; TEMP 36.8; O2SAT 97
[2019-03-14] MEDS: Propranolol 40 MG Tablet PO (09:05)
[2019-03-14] MEDS: Psyllium 1 PACKET PO (09:05)
[2019-03-14] MEDS: Pantoprazole Sodium 40 MG Tablet PO (09:05)
[2019-03-14] MEDS: Fluticasone 0.05% 1 SPRAY NASAL.SRY NASAL (09:05)
[2019-03-14] MEDS: Polyethylene Glycol 3350 17 GM PACKET PO (09:05)
[2019-03-14] MEDS: Ensure Clear 120 ML Liquid PO (09:11)
--- NOTE | 2019-03-14 10:57 | DCINST_ITS ---
- Discharge Diagnoses Current Active Problems: Current Active and Chronic Problems Dizziness (Acute) Acute kidney injury (Acute) You will use the following diet at home:: No restrictions Your food should be the consistency of: Regular Your liquids should be the consistency of: Regular/Thin Discharge Activity: Return to Normal Activity Weight Bearing Status: Weight bearing as tolerated Additional Instructions: you may take Tylenol for pain- do not take Advil or Alleve, or Naprosyn Allergies/Adverse Reactions: Allergies codeine Allergy (Verified 03/10/19 08:49) Nausea ANESTHETICS Allergy (Uncoded 03/10/19 08:49) Vomiting Medications to take at Discharge Fluticasone 0.05% [Flonase Nasal [place]] 1 spray NASAL DAILY 02/14/14 Polyethylene Glycol 3350 [Miralax] 17 gm PO DAILY 02/14/14 Propranolol HCl [Inderal (Beta Ramila)] 40 mg PO DAILY 02/14/14 Psyllium [Metamucil] 1 packet PO DAILY 02/14/14 Dicyclomine HCl [Bentyl] 10 mg PO ACHS 03/10/19 Cephalexin [Keflex] 500 mg PO BID #10 cap 03/14/19 Ferrous Sulfate 325 mg PO BID #60 tab 03/14/19 Pantoprazole Sodium [Protonix] 40 mg PO DAILY #30 tab 03/14/19 The following prescriptions were given: Ferrous Sulfate 325 mg PO BID #60 tab Transmission Status: Pending to [facility] [place] [address] Cephalexin [Keflex] 500 mg PO BID #10 cap Transmission Status: Pending to [facility] [facility] Pantoprazole Sodium [Protonix] 40 mg PO DAILY #30 tab Transmission Status: Pending to [facility] [place] [address] Primary Care Physician: Nohemi Cardoza MD [Primary Care Provider] - Please follow up with your Primary Care Physician in: early next week-get your kidney function rechecked (BMP) Test Results: Test results from this visit will be discussed in further detail at your follow- up appointment, if applicable. Please Follow Up With: Davis Fletcher MD When: to get a colonoscopy due to your iron deficiency anemia
--- NOTE | 2019-03-14 16:28 | DS.PCM_ITS ---
Discharge Date and Diagnosis Date of Admission: 03/10/19 Date of Discharge: 03/14/19 - Primary Discharge Diagnosis #1 acute kidney injury secondary to acute tubular necrosis from nonsteroidal anti-inflammatory use #2 proteinuria-etiology unclear #3 hypokalemia #4 acute cystitis with Klebsiella pneumoniae #5 iron deficiency anemia-etiology unclear #6 reflux esophagitis - Secondary Discharge Diagnosis Chronic Problems Chronic abdominal pain (Chronic) Hospital Course and Treatment Operations: None Procedures: EGD Summary of Care Provided: The patient is a 73 year old F was seen in the emergency room at [facility] with chief complaint of lightheadedness, gait instability, and nausea for several weeks. Patient has a long history of irritable bowel disease and recently she had been placed on Elavil and her Bentyl had been decreased. Patient noted that her lightheadedness seemed to start after she was placed on Elavil. In the emergency room revealed her creatinine and BUN to be elevated, hemoglobin was 10.5, and brain CT showed chronic involutional changes of the brain. Patient was admitted to [facility], IV fluids were administered, she had an MRI of the brain performed which showed no acute stroke. She was seen in consultation by nephrology who felt that the patient had ATN from nonsteroidal anti-inflammatory usage. Patient had been taking Naprosyn at home. Patient was also seen by general surgery who performed an EGD on the patient which showed reflux esophagitis. Serum iron was obtained which was low, patient was given IV Venofer. Patient was given IV antibiotics for acute cystitis-culture grew out Klebsiella pneumoniae. On 03/14/2019, patient was seen and examined: On examination she appeared in [facility]. Vital signs as documented. Skin warm and dry and without overt rashes. Neck without JVD. Lungs clear. Heart exam notable for regular rhythm, normal sounds and absence of murmurs, rubs or gallops. Abdomen unremarkable and without evidence of organomegaly, masses, or abdominal aortic enlargement. Extremities nonedematous. Neuro: Cranial nerves II through XII are grossly intact, no focal motor deficits were noted, sensation to light touch and pinprick is intact. Psych: Patient is alert and oriented x3, she does not appear anxious or depressed On 03/14/2019, patient was seen and examined and felt to be in stable condition for discharge home, she was to follow-up early this week as an outpatient with her primary care physician for repeat BMP, it was recommended that she follow-up with Dr. Fletcher for a colonoscopy as an outpatient due to her iron deficiency anemia. I contacted her physicians covering physician this weekend to let him know that the patient needs to follow-up with nephrology as an outpatient-I was unable to contact the patient or the patient's after she was discharged from the hospital today to relay this information. - Physical Exam Vitals/I&O's: Vital Signs Temp Pulse Resp BP Pulse Ox 98.2 F 76 18 155/80 H 97 03/14/19 09:00 03/14/19 09:00 03/14/19 09:00 03/14/19 09:00 03/14/19 09:00 Oxygen Delivery Method Room Air Weight: 85.9 kg Body Mass Index (BMI) 32.5 Finger Stick Blood Glucose 123 Intake and Output for Last 24 Hours 03/12/19 03/13/19 03/14/19 23:59 23:59 23:59 Intake Total 2250.00 / 2450.00 3881.67 / 4281.67 2792.5 / 2792.5 Output Total 500 / 500 2800 / 3250 875 / 875 Balance 1750.00 / 1950.00 1081.67 / 1031.67 1917.5 / 1917.5 Microbiology Past 72 Hours 03/10/19 16:28 Urine, Clean Catch Urine Culture - Final Klebsiella pneumoniae sp pneum 03/11/19 09:55 Stool Stool Lactoferrin - Final 03/11/19 09:55 Stool Enteric Bacteriology - Final 03/11/19 09:55 Stool Stool Occult Blood (MINNA) - Final Occult Blood Positive Laboratory Results 03/14/19 06:15: WBC 7.7, RBC 2.60 L, Hgb 8.2 L, Hct 24.3 L, MCV 93.5, MCH 31.5, MCHC 33.7, RDW Std Deviation 46.6 H, RDW Coeff of Ricky 13.7, Plt Count 183, MPV 10.7, Immature Gran % (Auto) 2.500 H, Neut % (Auto) 75.0 H, Lymph % (Auto) 8.7 L , [place] % (Auto) 8.7, Eos % (Auto) 4.7, Baso % (Auto) 0.4, Absolute Neuts (auto) 5.8, Absolute Lymphs (auto) 0.67 L, Nucleated RBC % 0 03/14/19 06:15: Sodium 141, Potassium 3.3 L, Chloride 112 H, Carbon Dioxide 22.0, BUN 20 H, Creatinine 2.26 H, Estim Creat Clear Calc 18.57, Est GFR (MDRD) Af Amer 27 L, Est GFR (MDRD) Non-Af 22 L, BUN/Creatinine Ratio 8.8 L, Glucose 107 H, Calcium 8.0 L, Phosphorus 3.0, Albumin 1.9 L Discharge Activity: Return to Normal Activity Weight Bearing Status: Weight bearing as tolerated Home Medications: Medications to take at Discharge Fluticasone 0.05% [Flonase Nasal [place]] 1 spray NASAL DAILY 02/14/14 Polyethylene Glycol 3350 [Miralax] 17 gm PO DAILY 02/14/14 Propranolol HCl [Inderal (Beta [place])] 40 mg PO DAILY 02/14/14 Psyllium [Metamucil] 1 packet PO DAILY 02/14/14 Dicyclomine HCl [Bentyl] 10 mg PO ACHS 03/10/19 Cephalexin [Keflex] 500 mg PO BID #10 cap 03/14/19 Ferrous Sulfate 325 mg PO BID #60 tab 03/14/19 Pantoprazole Sodium [Protonix] 40 mg PO DAILY #30 tab 03/14/19 Following Prescrptions Were Given to Patient: Ferrous Sulfate 325 mg PO BID #60 tab Transmission Status: Received by [address] Cephalexin [Keflex] 500 mg PO BID #10 cap Transmission Status: Received by [address] Pantoprazole Sodium [Protonix] 40 mg PO DAILY #30 tab Transmission Status: Received by [address] Primary Care Physician: Nohemi Cardoza MD [Primary Care Provider] - Please follow up with your Primary Care Physician in: early next week-get your kidney function rechecked (BMP) Please Follow Up With: Davis Fletcher MD When: to get a colonoscopy due to your iron deficiency anemia Disposition: Home Minutes spent on discharge:: 32 Patient Condition:: Stable Medical Necessity - Tobacco Use Smoking Status: Never smoker Meaningful Use Info Meaningful Use Diagnoses (Choose all that apply): None applicable Code Visit Inpatient E&M: 47797 Disch Hosp
--- NOTE | 2019-03-16 14:56 | CASEMGMT ---
DAXA CM DC PHONE CALL DC DATE: 03/14/19 DC Disposition: Home Diagnosis on Discharge: MONICA LACE/STRATA: 01/20 Attempted call to home phone. No answer and no message machine slate picker. Angel ORON RN ACM
== END 2019-03-14 12:29 | disposition home or self-care (01) | DRG 683 ==
LOC: ED 11:42 → MS3 12:00
PROVIDERS: Internal Medicine Nephrology; Surgery; Admitting Provider Internal Medicine; Emergency Provider Emergency Medicine; Family Provider Internal Medicine; PCP Internal Medicine; Referring Provider Internal Medicine; Visit Provider Internal Medicine
PROC: 0DJ08ZZ Inspection of Upper Intestinal Tract, Via Natural or Artificial Opening Endoscopic (ICD-10-PCS; CPT 43235; principal; 2019-03-12 07:25)
DX: N17.0 Acute kidney failure with tubular necrosis (principal); E87.2 Acidosis; N30.00 Acute cystitis without hematuria; K22.2 Esophageal obstruction; K44.9 Diaphragmatic hernia without obstruction or gangrene; K31.7 Polyp of stomach and duodenum; E87.6 Hypokalemia; R19.5 Other fecal abnormalities; T39.395A Adverse effect of other nonsteroidal anti-inflammatory drugs [NSAID], initial encounter; B96.1 Klebsiella pneumoniae [K. pneumoniae] as the cause of diseases classified elsewhere; D50.9 Iron deficiency anemia, unspecified; K21.0 Gastro-esophageal reflux disease with esophagitis; R80.9 Proteinuria, unspecified; G89.29 Other chronic pain; R10.9 Unspecified abdominal pain
CPT/HCPCS: 36415; 70450; 70551; 71045; 76770; 80048; 80069; 80076; 81001; 82040; 82274; 82436; 82570; 82607; 82728; 82746; 82962; 83540; 83550; 83630; 83735; 84133; 84134; 84156; 84300; 84443; 84484; 85014; 85018; 85025; 85610; 85730; 87077; 87086; 87088; 87186; 87506; 88305; 88313; 88342; 93005; 97161; 97166; 97802; 99285; J1756; J7030; J7040; J7120; A4216; J2405

== ENCOUNTER 2019-04-02 11:28 | Observation (INO) | payer MEDICARE, SELFPAY ==
[2019-03-12 00:11] VITALS: BMI 32.5
[2019-04-02 11:28] VITALS: BP 166/104; PULSE 105; RESP 18; TEMP 37; O2SAT 98
--- NOTE | 2019-04-02 11:58 | ED.DCSUM_ITS ---
History of Present Illness Chief Complaint: Nausea/Vomiting Informant: Patient Onset: Weeks Narrative: Patient presents with nausea, vomiting, unable to tolerate oral antibiotics. Patient was recently admitted for acute kidney injury and Klebsiella UTI. She received Rocephin IV while in the hospital was discharged with p.o. Keflex. Patient states she had nausea and vomiting when attempted to take the Keflex at home. She only had a few days of the so she kept taking the antibiotic. Her urinary symptoms seem to improve, but then returned 1 or 2 weeks ago. Urine culture sent from the PCPs office on the is positive for Klebsiella. Per their notes they attempted 2 different oral antibiotics for her at home and patient has been unable to tolerate either one. She sent in for hydration and IV antibiotics. - Past Medical History (1) GERD (gastroesophageal reflux disease) Status: Chronic Past Medical History - Allergies and Home Meds Allergies/Adverse Reactions: Allergies codeine Allergy (Verified 03/10/19 08:49) Nausea ANESTHETICS Allergy (Uncoded 03/10/19 08:49) Vomiting Primary Care Physician: Nohemi Cardoza MD [Primary Care Provider] - Surgical History: appendectomy, cholecystectomy, hysterectomy, tonsillectomy, - - Salpingoophorectomy Lives: Spouse/ Significant Other Smoking Status: Never smoker - Family History Maternal Family History: Reports: No pertinent history Paternal Family History: Reports: No pertinent history Review of Systems General: Reports: Chills, Fever Eyes: Denies: Visual changes - bilaterally ENT: Denies: Bilateral ear pain Cardiovascular: Denies: Chest pain Respiratory: Denies: Dyspnea, Cough Gastrointestinal: Reports: Abdominal pain, Nausea, Vomiting. Denies: Diarrhea Genitourinary: Reports: Dysuria Musculoskeletal: Reports: Back pain Skin: Denies: Rash Neurological: Denies: Headache Hematologic: Denies: Easy bruising Allergy: Denies: Uticaria Physical Exam Vital Signs/Narrative: Vital Signs Temp Pulse Resp BP Pulse Ox 04/02/19 11:28 98.6 F 105 H 18 166/104 H 98 Inital Vital Signs reviewed: Yes General: Well nourished, Well developed Head: Normocephalic ENT: Moist mucous membranes Neck: Supple Cardiovascular: Regular rate, Regular rhythm Respiratory: No distress, CTA bilaterally Abdomen: Soft, Tender - Mild lower abdominal tenderness., Hypoactive bowel sounds. Negative for: Guarding, Rebound tenderness Back: CVA tenderness - Bilateral CVA tenderness. Skin: Normal color Neurological: Alert, Oriented x3 Psychological: Normal affect Diagnostic/Tx/Re-eval Laboratory Results 04/02/19 04/02/19 04/02/19 12:26 13:37 13:50 WBC 9.3 RBC 3.85 L Hgb 11.9 L Hct 35.9 L MCV 93.2 MCH 30.9 MCHC 33.1 RDW Std Deviation 44.8 H RDW Coeff of Ricky 13.2 Plt Count 355 MPV 10.3 Immature Gran % (Auto) 0.400 Neut % (Auto) 80.9 H Lymph % (Auto) 9.5 L [place] % (Auto) 8.3 Eos % (Auto) 0.3 Baso % (Auto) 0.6 Absolute Neuts (auto) 7.5 Absolute Lymphs (auto) 0.88 Nucleated RBC % 0 Sodium 136 Potassium 3.5 Chloride 101 Carbon Dioxide 26.0 Anion Gap 9 BUN 16 Creatinine 1.56 H Estim Creat Clear Calc 26.91 Est GFR (MDRD) Af Amer 42 L Est GFR (MDRD) Non-Af 34 L BUN/Creatinine Ratio 10.3 Glucose 98 Calcium 9.2 Urine Color Yellow Urine Clarity Cloudy Urine pH 7.0 Ur Specific [place] 1.010 Urine Protein 30 H Urine Glucose (UA) Normal Urine Ketones 50 H Urine Occult Blood 50 H Urine Nitrite Negative Urine Bilirubin Negative Urine Urobilinogen Normal Ur Leukocyte Esterase 500 H Urine RBC 0-5 SEEN Urine WBC >100 SEEN Ur Squamous Epith Cells 0 SEEN Urine Bacteria 4+ Urine Mucus 0 SEEN - Medical Decision Making Patient was given IV fluids and Zofran. Urine culture from [facility] is reviewed. She is given a dose of IV Rocephin. I will speak with hospitalist regarding admission. ED Disposition - Plan for ED Patient: Disposition: Acute Care Hospital [facility] Diagnosis: Cystitis, Vomiting Referrals: Nohemi Cardoza MD [Primary Care Provider] -
[2019-04-02] MEDS: Ondansetron 4 MG/2 ML Vial IV ×2 (12:31→21:18)
[2019-04-02] MEDS: 0.9% Normal Saline 1,000 ML 150 ML IV ×2 (12:31→17:34)
[2019-04-02 12:44] LABS: Absolute Lymphocyte Count 0.88 X10^3/uL (0.83-4.51); Absolute Neutrophil Count 7.5 X10^3/uL (2.0-7.7); Basophil# 0.06 X10^3/uL; Basophil% 0.6 % (0-1); Eosinophil# 0.03 X10^3/uL; Eosinophils% 0.3 % (0-5); Hematocrit 35.9 % (37-47); Hemoglobin 11.9 g/dL (12.0-15.0); Lymphocyte # 0.88 X10^3/ul (4.0); Lymphocyte % 9.5 % (19-41); Mean Corp Hgb Conc 33.1 g/dL (32-36); Mean Corpuscular Hgb 30.9 pg (27.0-32.0); Mean Corpuscular Volume 93.2 fL (81-99); Mean Platelet Vol. 10.3 fl (6.2-12.0); Monocyte# 0.77 X10^3/uL; Monocyte% 8.3 % (0-10); NRBC Flagged by Analyzer 0 % (0-5); Neutrophil # 7.48 X10^3/uL (2.7-7.7); Neutrophil % 80.9 % (47-70); Platelet Count 355 K/mm3 (150-450); RBC Distribution Width CV 13.2 % (11.6-14.6); RBC Distribution Width SD 44.8 fl (35.1-43.9); Red Blood Count 3.85 M/mm3 (4.2-5.4); White Blood Count 9.3 K/mm3 (4.4-11.0)
[2019-04-02 13:55] LABS: Mucous, Urine 0 SEEN /hpf (<or=2+); Squamous Epithelial Cells - UA 0 SEEN /hpf (5-10)
[2019-04-02] MEDS: Ceftriaxone 1 GM/50 ML BAG IV (13:56)
[2019-04-02 13:59] LABS: Color, Urine Yellow (Yellow); Glucose, Dipstick Normal (Normal); Ketone-Dipstick 50 mg/dl (Negative); Leukocyte Esterase-Dipstick 500 /ul (Negative); Nitrite-Dipstick Negative (Negative); Occult Blood-Urine 50 /ul (Negative); Protein-Dipstick 30 mg/dl (Negative); Urine Bilirubin Dipstick Negative (Negative); Urine Clarity Cloudy (Clear); Urine Urobilinogen Normal (Normal)
[2019-04-02 14:01] LABS: Anion Gap 9 (5-15); BUN 16 mg/dL (7-18); BUN/Creat Ratio 10.3 RATIO (10-20); Calcium,Total 9.2 mg/dL (8.5-10.1); Chloride 101 mmol/L (98-107); Creatinine, Serum 1.56 mg/dL (0.55-1.02); EST Glomerular Filtration Rate 34 mL/min (>60); Est Glom Filt Rate - Afr Amer 42 mL/min (>60); Estimated Creatinine Clearance 26.91 ml/min; Glucose 98 mg/dL (74-106); Potassium 3.5 mmol/L (3.5-5.1); Sodium Level 136 mmol/L (136-145)
[2019-04-02 14:30] LABS: White Blood Cells >100 SEEN /hpf (0-5)
[2019-04-02 14:31] LABS: Bacteria 4+ /hpf (None Seen); Red Blood Cells-Urine 0-5 SEEN /hpf (0-5)
[2019-04-02 14:38] VITALS: BP 199/82; PULSE 72; RESP 18; O2SAT 99
[2019-04-02 15:30] VITALS: BP 186/85; PULSE 76; RESP 16; TEMP 37.1; O2SAT 98
[2019-04-02 16:19] VITALS: BP 187/83; PULSE 78; RESP 18; TEMP 36.9; O2SAT 97; BMI 31.4; BMI 31.5
--- NOTE | 2019-04-02 18:25 | PCM.HP.STD ---
Problem List (1) Vomiting Status: Acute Qualifiers: Vomiting type: unspecified Vomiting Intractability: non-intractable Nausea presence: with nausea Qualified Code(s): R11.2 - Nausea with vomiting, unspecified (2) Urinary tract infection Status: Acute Qualifiers: Urinary tract infection type: acute cystitis Hematuria presence: without hematuria Qualified Code(s): N30.00 - Acute cystitis without hematuria History of Present Illness Date of Admission: 04/02/19 Chief Complaint: Nausea and vomiting, cystitis The patient is a 73 year old F emergency room at [facility] with a chief complaint of nausea and vomiting for 3 days along with a urinary tract infection. Patient was hospitalized here from 03/10/2019 and discharged on 03/14/2019 on p.o. Keflex for cystitis. During that admission, she was hospitalized due to acute kidney injury and there was noted to be protein in the patient's urine and she was supposed to follow-up with Dr. Rao as an outpatient regarding this-she has not seen him yet. Patient was given an antibiotic (Keflex) by her PCP due to a positive urine culture done on 03/18/2019 which grew out Klebsiella pneumoniae-this was the same organism she had cultured when she was last hospitalized. Work-up in the emergency room here included a CBC which showed a normal white blood cell count, hemoglobin was 11.9, creatinine had improved to 1.56, BUN was normal, and urinalysis showed more than 100 WBCs, 500 leukocyte esterase, +4 bacteria, and 0-5 RBCs. She will be placed in observation status for nausea and vomiting-the etiology of the nausea and vomiting is unclear at this point, patient has a history of irritable bowel syndrome and takes Bentyl chronically. She will be placed on IV Rocephin, she may need to be discharged on another antibiotic such as Cipro-the sensitivities for the Klebsiella pneumoniae which was cultured on 03/18/2019 show that it is sensitive to most antibiotics except for Macrodantin. Past Medical History Past Medical History (Chronic Problems): Chronic Problems GERD (gastroesophageal reflux disease) (Chronic) Chronic abdominal pain (Chronic) Allergies codeine Allergy (Verified 03/10/19 08:49) Nausea ANESTHETICS Allergy (Uncoded 03/10/19 08:49) Vomiting Home Medications: Ambulatory Orders Medication Instructions Recorded Dicyclomine HCl [Bentyl] 10 mg PO ACHS 03/10/19 Pantoprazole Sodium [Protonix] 40 mg PO DAILY #30 tab 03/14/19 Surgical History: appendectomy, cholecystectomy, hysterectomy, tonsillectomy, - - Salpingoophorectomy Psychiatric History: No pertinent psych hx TREE THINNER History: No pertinent TREE THINNER history Lives: Spouse/ Significant Other Smoking Status: Never smoker Tobacco Use: Non-smoker Alcohol: None Drugs: None - *Family History Maternal History Items: No pertinent history Paternal History Items: No pertinent history Review of Systems Constitutional: Reports: Fatigue. Denies: Anorexia, Chills, Fever, Night Sweats, Malaise, Weakness, Weight Change Eyes: Denies: Cataracts, Conjunctivae Inflammation, Double vision, Drainage HEENT: Denies: Difficulty Swallowing, Dysphasia, Ear Pain, Eye Pain, Hearing Changes, Nasal bleeding, Nasal Congestion, Post Nasal Drip Cardiovascular: Denies: Chest Pain, Claudication, Chest Pressure, Chest Tightness, Edema, Heaviness, Palpitations Respiratory: Denies: Cough, Hemoptysis, Pleuritic Pain, Shortness of Breath, Shortness of breath at rest, Shortness of breath upon exertion Gastrointestinal: Reports: Nausea, Vomiting. Denies: Abdominal Pain, Constipation, Diarrhea, Hematemesis, Hematochezia, Melena Genitourinary: Denies: Dysuria, Frequency, Hematuria, Hesitancy, Incontinence, Nocturia, Retention, Urgency Gynecological: Denies: Breast symptoms Musculoskeletal: Denies: Back Pain, Foot Pain, Hand Pain, Joint Pain, Joint stiffness, Joint swelling, Joint Tenderness, Leg Pain Skin: Denies: Dryness, Jaundice, Pruritis, Rash Neurological: Denies: Blurred vision, Double vision, Change in Speech, Slurred speech, Difficulty swallowing, Focal weakness, Headaches, Incoordination, Numbness, Tingling Psychiatric: Denies: Anxiety, Depression, Homicidal Ideations, Suicidal Ideations Endocrine: Denies: Change in Body Habitus, Heat/ Cold Intolerance, Polydipsia, Polyuria Hematologic/ Lymphatic: Denies: Adenopathy, Anemia, Easy Bruising, Easy Bleeding, Petechiae, Purpura VTE Information - Inpt Only VTE Present on Admission: No VTE Mechan Device Prophylaxis: None VTE Pharm Prophylaxis ordered?: Yes Patient Problems: Active and Suspected Problems Cystitis (Acute) Vomiting (Acute) - Physical Exam Vitals/I&O's: Vital Signs Temp Pulse Resp BP Pulse Ox 98.4 F 78 18 187/83 H 97 04/02/19 16:19 04/02/19 16:19 04/02/19 16:19 04/02/19 16:19 04/02/19 16:19 Oxygen Delivery Method Room Air Weight: 83.149 kg Body Mass Index (BMI) 31.4 Finger Stick Blood Glucose 123 Intake and Output for Last 24 Hours 03/31/19 04/01/19 04/02/19 23:59 23:59 23:59 Intake Total 1307.5 / 1307.5 Balance 1307.5 / 1307.5 General: Alert, Oriented x3, Cooperative, No apparent distress, Well developed, Well nourished HEENT: Atraumatic, PERRLA, EOMI, Normocephalic Oral: Moist Mucosa Neck: Supple, No JVD, Trachea Midline, Thyroid Normal Size and Texture Lungs: Clear to auscultation, Normal air movement, No rhonchi, No wheeze, No rales Cardiovascular: Regular rate, Regular Rhythm, Normal S1, Normal S2, No murmurs Abdomen: Bowel Sounds Present, Soft, Non Tender, Non-Distended, No hernias noted Extremities: No clubbing, No cyanosis, No edema, Capillary Refill Less than 3 Seconds Skin: No rashes, No breakdown Musculoskeletal: No Tenderness to Palpation of Joints or Extremities Neurological: Cranial nerves II-XII grossly intact, Neuro grossly intact, Sensory exam intact to light touch and pain Psych/Mental Status: Normal Affect, Appropriate, Alert and oriented to time, place, person, mood and affect Laboratory Results 04/02/19 12:26: WBC 9.3, RBC 3.85 L, Hgb 11.9 L, Hct 35.9 L, MCV 93.2, MCH 30.9, MCHC 33.1, RDW Std Deviation 44.8 H, RDW Coeff of Ricky 13.2, Plt Count 355, MPV 10.3, Immature Gran % (Auto) 0.400, Neut % (Auto) 80.9 H, Lymph % (Auto) 9.5 L, [place] % (Auto) 8.3, Eos % (Auto) 0.3, Baso % (Auto) 0.6, Absolute Neuts (auto) 7.5, Absolute Lymphs (auto) 0.88, Nucleated RBC % 0 04/02/19 13:37: Sodium 136, Potassium 3.5, Chloride 101, Carbon Dioxide 26.0, Anion Gap 9, BUN 16, Creatinine 1.56 H, Estim Creat Clear Calc 26.91, Est GFR (MDRD) Af Amer 42 L, Est GFR (MDRD) Non-Af 34 L, BUN/Creatinine Ratio 10.3, Glucose 98, Calcium 9.2 04/02/19 13:50: Urine Color Yellow, Urine Clarity Cloudy, Urine pH 7.0, Ur Specific [place] 1.010, Urine Protein 30 H, Urine Glucose (UA) Normal, Urine Ketones 50 H, Urine Occult Blood 50 H, Urine Nitrite Negative, Urine Bilirubin Negative, Urine Urobilinogen Normal, Ur Leukocyte Esterase 500 H, Urine RBC 0-5 SEEN, Urine WBC >100 SEEN, Ur Squamous Epith Cells 0 SEEN, Urine Bacteria 4+, Urine Mucus 0 SEEN Current Medications Dicyclomine HCl (Bentyl) 10 mg PO ACHS [facility] Heparin Sodium (Porcine) (Heparin Na) 5,000 unit SC Q12 [facility] Sodium Chloride () 1,000 mls @ 125 mls/hr IV .Q8H [facility] Ceftriaxone Sodium (Rocephin) 1 gm in 50 mls @ 100 mls/hr IV Q24 [facility] Ondansetron HCl (Zofran) 4 mg IV Q8H PRN PRN PRN Reason: NAUSEA/VOMITING Pantoprazole Sodium (Protonix) 40 mg PO DAILY [facility] Sodium Chloride () 10 - 40 ml IV UD PRN PRN Reason: SALINE FLUSH Assessment/Plan All Active Problems Dizziness (Acute) Acute kidney injury (Acute) Cystitis (Acute) Vomiting (Acute) Near syncope (Acute) Dehydration (Acute) Urinary tract infection (Acute) #1 recurrent cystitis with Klebsiella pneumoniae-patient was given IV Rocephin in the ER, this will be continued in the hospital, patient will be placed in observation status on MedSur, she will be given IV fluids and labs will be rechecked tomorrow. There is a possibility that the patient may be colonized with bacteria in her urine. I discussed this with her and her . #2 nausea and vomiting-etiology unclear, patient does not look dehydrated during my examination although she states she is been vomiting for 3 days and unable to eat. I do not have an etiology for this. #3 chronic kidney disease stage III-patient's creatinine has dropped near her baseline levels as noted in her medical record from previous lab. Patient will be following up with nephrology as an outpatient #4 proteinuria-etiology unclear, again patient will be following up as an outpatient with nephrology #5 irritable bowel syndrome Code Visit OBSV E&M: [id number] Initial observation care L3
[2019-04-02] MEDS: 0.9% Saline Lock 10 ML Syringe IV ×2 (21:18→23:59)
[2019-04-02 21:52] VITALS: BP 169/94; PULSE 75; RESP 18; TEMP 36.8; O2SAT 100
[2019-04-02 22:07] VITALS: BP 162/92
[2019-04-02] MEDS: Heparin Injection (Vial) 5,000 UNIT/ML VIAL 5000 UNIT SC (22:17)
[2019-04-02] MEDS: Dicyclomine 10 MG Capsule PO (22:18)
[2019-04-02] MEDS: Metoclopramide 10 MG/2 ML Vial IV (23:59)
[2019-04-03] VITALS (8 sets, daily range): BP systolic 148–203; BP diastolic 62–100; PULSE 78–90; RESP 16–18; TEMP 36.8–37.7; O2SAT 96–99
[2019-04-03] MEDS: 0.9% Normal Saline 1,000 ML 125 ML IV ×4 (00:38→23:54)
[2019-04-03] MEDS: hydrALAZINE 20 MG/ML Vial 10 MG IV (03:14)
[2019-04-03] MEDS: 0.9% Saline Lock 10 ML Syringe IV ×2 (03:14→06:03)
[2019-04-03] MEDS: Ondansetron 4 MG/2 ML Vial IV (06:03)
[2019-04-03] MEDS: Dicyclomine 10 MG Capsule PO ×3 (06:34→21:06)
[2019-04-03 07:12] LABS: Absolute Lymphocyte Count 0.63 X10^3/uL (0.83-4.51); Absolute Neutrophil Count 7.4 X10^3/uL (2.0-7.7); Basophil# 0.04 X10^3/uL; Basophil% 0.5 % (0-1); Eosinophil# 0.01 X10^3/uL; Eosinophils% 0.1 % (0-5); Hematocrit 32.3 % (37-47); Hemoglobin 10.8 g/dL (12.0-15.0); Lymphocyte # 0.63 X10^3/ul (4.0); Lymphocyte % 7.3 % (19-41); Mean Corp Hgb Conc 33.4 g/dL (32-36); Mean Corpuscular Volume 92.8 fL (81-99); Monocyte# 0.42 X10^3/uL; Monocyte% 4.9 % (0-10); NRBC Flagged by Analyzer 0 % (0-5); Neutrophil # 7.43 X10^3/uL (2.7-7.7); Neutrophil % 86.6 % (47-70); Platelet Count 346 K/mm3 (150-450); RBC Distribution Width CV 13.2 % (11.6-14.6); RBC Distribution Width SD 44.8 fl (35.1-43.9); Red Blood Count 3.48 M/mm3 (4.2-5.4); White Blood Count 8.6 K/mm3 (4.4-11.0)
[2019-04-03 07:33] LABS: Anion Gap 10 (5-15); BUN 14 mg/dL (7-18); BUN/Creat Ratio 10.4 RATIO (10-20); Calcium,Total 8.8 mg/dL (8.5-10.1); Chloride 104 mmol/L (98-107); Creatinine, Serum 1.34 mg/dL (0.55-1.02); EST Glomerular Filtration Rate 41 mL/min (>60); Est Glom Filt Rate - Afr Amer 50 mL/min (>60); Estimated Creatinine Clearance 31.32 ml/min; Glucose 116 mg/dL (74-106); Potassium 3.4 mmol/L (3.5-5.1); Sodium Level 138 mmol/L (136-145)
[2019-04-03] MEDS: Pantoprazole Sodium 40 MG Tablet PO (08:35)
[2019-04-03] MEDS: Ceftriaxone 1 GM/50 ML BAG IV (08:36)
[2019-04-03] MEDS: Heparin Injection (Vial) 5,000 UNIT/ML VIAL 5000 UNIT SC ×2 (08:37→21:06)
--- NOTE | 2019-04-03 11:41 | NURSING ---
k riders still not available for pt administration
[2019-04-03] MEDS: proMETHazine 25 MG/ML Syringe 6.25 MG IV (11:43)
--- NOTE | 2019-04-03 11:49 | CASEMGMT ---
RN ARLEY NOTE: To room to talk with pt. Introduced self and role of RN ARLEY. Reviewed LESLIE form and pt denies having any questions. Form signed by pt, copy made and placed on chart, and original given to pt. Ru KEY RN CM
[2019-04-03] MEDS: Potassium Chloride 10mEq/100mL 10 MEQ/100 ML IV.SOLN. 100 MEQ IV BOLUS ×4 (12:00→15:25)
--- NOTE | 2019-04-03 12:44 | PN_ITS ---
<Carmine Da Silva - Last Filed: 04/03/19 12:44> Patient Problems: Active and Suspected Problems Cystitis (Acute) Vomiting (Acute) Subjective: Pt reports burning with urination. No fever/chills. Ongoing diffuse abd pain and cramping that she says have worsened since first diagnosed with UTI in february. She was discharged from the hospital 03/14/2019 for tx of UTI and did not tolerate the home oral antibiotics. She has chronic nausea and becomes nauseous with many oral medications. She reports no diarrhea currently or since becoming ill. - Physical Exam Vitals/I&O's: Vital Signs Temp Pulse Resp BP Pulse Ox 99.9 F H 88 16 152/64 H 97 04/03/19 08:59 04/03/19 09:01 04/03/19 09:01 04/03/19 08:59 04/03/19 09:01 Oxygen Delivery Method Room Air Weight: 183 lb 4.995 oz Body Mass Index (BMI) 31.4 Finger Stick Blood Glucose 123 Intake and Output for Last 24 Hours 04/01/19 04/02/19 04/03/19 23:59 23:59 23:59 Intake Total 1427.5 / 1427.5 2172.92 / 2172.92 Output Total 700 / 700 750 / 750 Balance 727.5 / 727.5 1422.92 / 1422.92 General: Alert, Oriented x3, Cooperative, - - appears uncomfortable, nauseous HEENT: Atraumatic, PERRLA, EOMI, Normocephalic Neck: Supple, No JVD, Negative Carotid Bruits Lungs: Clear to auscultation, Normal air movement Cardiovascular: Regular rate, No murmurs Abdomen: Bowel Sounds Present, Soft, Tender - diffusely, worst: LLQ. Extremities: No edema, Capillary Refill Less than 3 Seconds Skin: No rashes, No breakdown Musculoskeletal: No Tenderness to Palpation of Joints or Extremities Neurological: Cranial nerves II-XII grossly intact Psych/Mental Status: Normal Affect, Appropriate, Alert and oriented to time, place, person, mood and affect Laboratory Results 04/02/19 12:26: WBC 9.3, RBC 3.85 L, Hgb 11.9 L, Hct 35.9 L, MCV 93.2, MCH 30.9, MCHC 33.1, RDW Std Deviation 44.8 H, RDW Coeff of Ricky 13.2, Plt Count 355, MPV 10.3, Immature Gran % (Auto) 0.400, Neut % (Auto) 80.9 H, Lymph % (Auto) 9.5 L, [place] % (Auto) 8.3, Eos % (Auto) 0.3, Baso % (Auto) 0.6, Absolute Neuts (auto) 7.5, Absolute Lymphs (auto) 0.88, Nucleated RBC % 0 04/02/19 13:37: Sodium 136, Potassium 3.5, Chloride 101, Carbon Dioxide 26.0, A nion Gap 9, BUN 16, Creatinine 1.56 H, Estim Creat Clear Calc 26.91, Est GFR (MDRD) Af Amer 42 L, Est GFR (MDRD) Non-Af 34 L, BUN/Creatinine Ratio 10.3, Glucose 98, Calcium 9.2 04/02/19 13:50: Urine Color Yellow, Urine Clarity Cloudy, Urine pH 7.0, Ur Specific [place] 1.010, Urine Protein 30 H, Urine Glucose (UA) Normal, Urine Ketones 50 H, Urine Occult Blood 50 H, Urine Nitrite Negative, Urine Bilirubin Negative, Urine Urobilinogen Normal, Ur Leukocyte Esterase 500 H, Urine RBC 0-5 SEEN, Urine WBC >100 SEEN, Ur Squamous Epith Cells 0 SEEN, Urine Bacteria 4+, Urine Mucus 0 SEEN 04/03/19 06:50: WBC 8.6, RBC 3.48 L, Hgb 10.8 L, Hct 32.3 L, MCV 92.8, MCH 31.0, MCHC 33.4, RDW Std Deviation 44.8 H, RDW Coeff of Ricky 13.2, Plt Count 346, MPV 10.0, Immature Gran % (Auto) 0.600, Neut % (Auto) 86.6 H, Lymph % (Auto) 7.3 L, [place] % (Auto) 4.9, Eos % (Auto) 0.1, Baso % (Auto) 0.5, Absolute Neuts (auto) 7.4, Absolute Lymphs (auto) 0.63 L, Nucleated RBC % 0 04/03/19 06:50: Sodium 138, Potassium 3.4 L, Chloride 104, Carbon Dioxide 24.0, Anion Gap 10, BUN 14, Creatinine 1.34 H, Estim Creat Clear Calc 31.32, Est GFR (MDRD) Af Amer 50 L, Est GFR (MDRD) Non-Af 41 L, BUN/Creatinine Ratio 10.4, Glucose 116 H, Calcium 8.8 Current Medications Dicyclomine HCl (Bentyl) 10 mg PO ACHS [facility] Last Admin: 04/03/19 11:43 Dose: Not Given Documented by: Heparin Sodium (Porcine) (Heparin Na) 5,000 unit SC Q12 [facility] Last Admin: 04/03/19 08:37 Dose: 5,000 unit Documented by: Hydralazine HCl (Apresoline Iv) 10 mg IV Q4H PRN PRN PRN Reason: SBP > 180 Last Admin: 04/03/19 03:14 Dose: 10 mg Documented by: Sodium Chloride () 1,000 mls @ 125 mls/hr IV .Q8H [facility] Last Infusion: 04/03/19 09:09 Dose: 125 mls/hr Documented by: Ceftriaxone Sodium (Rocephin) 1 gm in 50 mls @ 100 mls/hr IV Q24 [facility] Last Infusion: 04/03/19 09:10 Dose: Infused Documented by: Potassium Chloride () 10 meq in 100 mls @ 100 mls/hr IV BOLUS Q1H [facility] Stop: 04/03/19 14:59 Last Admin: 04/03/19 12:00 Dose: 100 mls/hr Documented by: Ondansetron HCl (Zofran) 4 mg IV Q6H PRN PRN PRN Reason: NAUSEA/VOMITING Pantoprazole Sodium (Protonix) 40 mg PO DAILY [facility] Last Admin: 04/03/19 08:35 Dose: 40 mg Documented by: Promethazine HCl (Phenergan) 6.25 mg IV Q6H PRN PRN PRN Reason: NAUSEA/VOMITING Last Admin: 04/03/19 11:43 Dose: 6.25 mg Documented by: Sodium Chloride () 10 - 40 ml IV UD PRN PRN Reason: SALINE FLUSH Last Admin: 04/03/19 06:03 Dose: 10 ml Documented by: Medical Necessity - Tobacco Use Smoking Status: Never smoker Tobacco Use: Non-smoker Assessment/Plan All Active Problems Dizziness (Acute) Acute kidney injury (Acute) Cystitis (Acute) Vomiting (Acute) Near syncope (Acute) Dehydration (Acute) Urinary tract infection (Acute) 1. Recurrent UTI, complicated UTI - check PVR. Prior cx with Klebsiella susceptible to rocephin. Pt did not tolerate home PO abx in past due to na usea/vomiting even with home nausea medication. No fever/leukocytosis. UA +. Check KUB. Stopped reglan, continue zofran and started phenergan. 2. IBS - chronic nausea/vomiting, and chronic abdominal pain. Recently had bentyl reduced to twice per day. we have increased her to 4x per day. Ongoing cramping abd pain and nausea. This began to worsen near the time her UTI started. Since no BM will check KUB to make sure no evidence of bowel obstruction. 3. GERD - PPI 4. HTN - 2/2 pain and nauea - this is improving, prn hydralazine with parameters. DVT ppx: heparin DC planning: symptoms still poorly controlled, will monitor overnight and wait for urine culture. This patient was seen by Carmine Da Silva PA-C under the supervision of Doctor Johnny. <Eliceo Turner F - Last Filed: 04/03/19 14:42> - Physical Exam Vitals/I&O's: Vital Signs Temp Pulse Resp BP Pulse Ox 99.9 F H 88 16 152/64 H 97 04/03/19 08:59 04/03/19 09:01 04/03/19 09:01 04/03/19 08:59 04/03/19 09:01 Oxygen Delivery Method Room Air Weight: 183 lb 4.995 oz Body Mass Index (BMI) 31.4 Finger Stick Blood Glucose 123 Intake and Output for Last 24 Hours 04/01/19 04/02/19 04/03/19 23:59 23:59 23:59 Intake Total 1427.5 / 1427.5 2372.92 / 2372.92 Output Total 700 / 700 750 / 750 Balance 727.5 / 727.5 1622.92 / 1622.92 Microbiology Past 72 Hours 04/02/19 13:50 Urine Catheter - [place] Urine Culture - Preliminary Gram negative dayday Laboratory Results 04/03/19 06:50: WBC 8.6, RBC 3.48 L, Hgb 10.8 L, Hct 32.3 L, MCV 92.8, MCH 31.0, MCHC 33.4, RDW Std Deviation 44.8 H, RDW Coeff of Ricky 13.2, Plt Count 346, MPV 10.0, Immature Gran % (Auto) 0.600, Neut % (Auto) 86.6 H, Lymph % (Auto) 7.3 L, [place] % (Auto) 4.9, Eos % (Auto) 0.1, Baso % (Auto) 0.5, Absolute Neuts (auto) 7.4, Absolute Lymphs (auto) 0.63 L, Nucleated RBC % 0 04/03/19 06:50: Sodium 138, Potassium 3.4 L, Chloride 104, Carbon Dioxide 24.0, Anion Gap 10, BUN 14, Creatinine 1.34 H, Estim Creat Clear Calc 31.32, Est GFR (MDRD) Af Amer 50 L, Est GFR (MDRD) Non-Af 41 L, BUN/Creatinine Ratio 10.4, Glucose 116 H, Calcium 8.8 Current Medications Dicyclomine HCl (Bentyl) 10 mg PO ACHS [facility] Last Admin: 04/03/19 14:14 Dose: 10 mg Documented by: Heparin Sodium (Porcine) (Heparin Na) 5,000 unit SC Q12 [facility] Last Admin: 04/03/19 08:37 Dose: 5,000 unit Documented by: Hydralazine HCl (Apresoline Iv) 10 mg IV Q4H PRN PRN PRN Reason: SBP > 180 Last Admin: 04/03/19 03:14 Dose: 10 mg Documented by: Sodium Chloride () 1,000 mls @ 125 mls/hr IV .Q8H [facility] Last Infusion: 04/03/19 09:09 Dose: 125 mls/hr Documented by: Ceftriaxone Sodium (Rocephin) 1 gm in 50 mls @ 100 mls/hr IV Q24 [facility] Last Infusion: 04/03/19 09:10 Dose: Infused Documented by: Potassium Chloride () 10 meq in 100 mls @ 100 mls/hr IV BOLUS Q1H [facility] Stop: 04/03/19 14:59 Last Admin: 04/03/19 14:14 Dose: 100 mls/hr Documented by: Ondansetron HCl (Zofran) 4 mg IV Q6H PRN PRN PRN Reason: NAUSEA/VOMITING Pantoprazole Sodium (Protonix) 40 mg PO DAILY [facility] Last Admin: 04/03/19 08:35 Dose: 40 mg Documented by: Promethazine HCl (Phenergan) 6.25 mg IV Q6H PRN PRN PRN Reason: NAUSEA/VOMITING Last Admin: 04/03/19 11:43 Dose: 6.25 mg Documented by: Sodium Chloride () 10 - 40 ml IV UD PRN PRN Reason: SALINE FLUSH Last Admin: 04/03/19 06:03 Dose: 10 ml Documented by: Code Visit Addendum: Dr. Turner I personally examined the patient and reviewed the chart. I agree with the above. 73-year-old female presenting with nausea and vomiting for 3 days with a recurrent UTI. Her previous UTI was Rocephin sensitive however she did not tolerate the oral antibiotics on discharge. She had a urine culture that was positive for Klebsiella. We will continue to treat with Rocephin however may need to keep her here for the full 5 days of IV therapy if she is not tolerating oral antibiotics on discharge. Today on evaluation she was little bit drowsy given the recent dosage of Phenergan and having little sleep overnight. She has had some blood pressures in the 200s which is likely reactionary to her current illness, will continue to monitor and provide as needed blood pressure medications as necessary. OBSV E&M: [id number] Subsequent observation care L2
--- NOTE | 2019-04-03 13:40 | RAD_ITS ---
STUDY: X-RAY - ABDOMEN/PELVIS REASON FOR EXAM: Female, 73 years old. , Pain. TECHNIQUE: Single AP view of the abdomen / pelvis. COMPARISON: None. FINDINGS: Normal visualized lung bases. There is an unremarkable bowel gas pattern. There is moderate fecal debris within the colon. There is no demonstrated free abdominal air. The visualized liver, spleen and kidneys are grossly normal in size and morphology. Normal soft tissue structures. There are diffuse degenerative changes of the visualized lumbar spine. RAD/Abdomen Single View (Portable) IMPRESSION: Nonspecific gas pattern. Electronically Signed: Melissa Mercado MD at 0:29 EST , Service support ,
[2019-04-04] VITALS (12 sets, daily range): BP systolic 148–204; BP diastolic 65–82; PULSE 74–96; RESP 16–20; TEMP 36.6–37.7; O2SAT 95–98
[2019-04-04] MEDS: hydrALAZINE 20 MG/ML Vial 10 MG IV (00:04)
[2019-04-04] MEDS: 0.9% Saline Lock 10 ML Syringe IV ×2 (01:08→14:28)
[2019-04-04] MEDS: Lisinopril 10 MG Tablet PO ×2 (02:46→09:07)
[2019-04-04] MEDS: cloNIDine HCl 0.1 MG Tablet PO (05:02)
[2019-04-04] MEDS: Ondansetron ODT 4 MG Tablet PO ×3 (05:28→20:28)
[2019-04-04] MEDS: Dicyclomine 10 MG Capsule PO (06:53)
[2019-04-04] MEDS: Pantoprazole Sodium 40 MG Tablet PO (09:09)
[2019-04-04] MEDS: Heparin Injection (Vial) 5,000 UNIT/ML VIAL 5000 UNIT SC ×2 (10:26→21:22)
--- NOTE | 2019-04-04 11:51 | PN_ITS ---
<Carmine Da Silva - Last Filed: 04/04/19 11:51> Patient Problems: Active and Suspected Problems Cystitis (Acute) Vomiting (Acute) Subjective: Pt refused lab draws this AM, upset about multiple failed attempts at peripheral IV access last night. Agreeable to midline. Ongoing nausea and dry heaving this AM, diffuse abdominal pain. No fever/chills. She feels better after receiving bentyl. No bowel activity. KUB unremarkable. - Physical Exam Vitals/I&O's: Vital Signs Temp Pulse Resp BP Pulse Ox 98.1 F 83 20 H 148/73 H 97 04/04/19 08:30 04/04/19 08:30 04/04/19 10:00 04/04/19 08:30 04/04/19 08:30 Oxygen Delivery Method Room Air Weight: 183 lb 4.995 oz Body Mass Index (BMI) 31.4 Finger Stick Blood Glucose 123 Intake and Output for Last 24 Hours 04/02/19 04/03/19 04/04/19 23:59 23:59 23:59 Intake Total 1427.5 / 1427.5 4581.25 / 4681.25 397.92 / 397.92 Output Total 700 / 700 1250 / 1650 700 / 700 Balance 727.5 / 727.5 3331.25 / 3031.25 -302.08 / -302.08 General: Alert, Oriented x3, Cooperative HEENT: Atraumatic, PERRLA, EOMI, Normocephalic Neck: Supple, No JVD, Negative Carotid Bruits Lungs: Clear to auscultation, Normal air movement Cardiovascular: Regular rate, No murmurs Abdomen: Bowel Sounds Present, Soft, Tender - RLQ no guarding. Extremities: No edema, Capillary Refill Less than 3 Seconds Skin: No rashes, No breakdown Musculoskeletal: No Tenderness to Palpation of Joints or Extremities Neurological: Cranial nerves II-XII grossly intact Psych/Mental Status: Normal Affect, Appropriate, Alert and oriented to time, place, person, mood and affect Microbiology Past 72 Hours 04/02/19 13:50 Urine Catheter - [place] Urine Culture - Preliminary Klebsiella pneumoniae sp pneum Gram negative dayday#2 Current Medications Ceftriaxone Sodium (Rocephin) 1 gm IM Q24 [facility] Dicyclomine HCl (Bentyl) 20 mg PO ACHS [facility] Heparin Sodium (Porcine) (Heparin Na) 5,000 unit SC Q12 [facility] Last Admin: 04/04/19 10:26 Dose: 5,000 unit Documented by: Sodium Chloride () 1,000 mls @ 100 mls/hr IV .Q10H [facility] Lisinopril (Zestril) 20 mg PO DAILY [facility] Metoclopramide HCl (Reglan) 10 mg PO Q6H PRN PRN PRN Reason: NAUSEA Metoprolol Tartrate (Lopressor (Beta Ramila)) 5 mg IV Q6H PRN PRN PRN Reason: BLOOD PRESSURE Ondansetron HCl (Zofran Odt) 4 mg PO Q4H PRN PRN PRN Reason: NAUSEA Last Admin: 04/04/19 10:32 Dose: 4 mg Documented by: Pantoprazole Sodium (Protonix) 40 mg PO DAILY [facility] Last Admin: 04/04/19 09:09 Dose: 40 mg Documented by: Medical Necessity - Tobacco Use Smoking Status: Never smoker Tobacco Use: Non-smoker Assessment/Plan All Active Problems Dizziness (Acute) Acute kidney injury (Acute) Cystitis (Acute) Vomiting (Acute) Near syncope (Acute) Dehydration (Acute) Urinary tract infection (Acute) 1. Recurrent UTI, complicated UTI - no fever/luekocytosis. Urine culture with Klebsiella pna again, suspectible to cephalosporins. Only 1k to 10k growth, other GNR <1000 cfus. Unclear if she has colonization or acute UTI. Symptoms of dysuria occurred with onset of N/V, so will continue full treatment course. She felt some relief with reglan, so this has been restarted. 2. IBS - chronic nausea/vomiting, and chronic abdominal pain - I suspect this is contributing more to her symptoms than the above at this point, as she states bentyl is the only thing that has provided signficant relief in the past and currently. Bentyl has been increased today. 3. GERD - PPI 4. HTN - 2/2 pain and nauea - started on lisinopril. improved. DVT ppx: heparin DC planning: symptoms still poorly controlled, advance diet tomorrow. This patient was seen by Carmine Da Silva PA-C under the supervision of Doctor Johnny. <Eliceo Turner - Last Filed: 04/04/19 13:34> - Physical Exam Vitals/I&O's: Vital Signs Temp Pulse Resp BP Pulse Ox 98 F 75 20 H 157/65 H 97 04/04/19 12:30 04/04/19 12:30 04/04/19 12:30 04/04/19 12:30 04/04/19 12:30 Oxygen Delivery Method Room Air Weight: 183 lb 4.995 oz Body Mass Index (BMI) 31.4 Finger Stick Blood Glucose 123 Intake and Output for Last 24 Hours 04/02/19 04/03/19 04/04/19 23:59 23:59 23:59 Intake Total 1427.5 / 1427.5 4581.25 / 4681.25 637.92 / 637.92 Output Total 700 / 700 1250 / 1650 1300 / 1300 Balance 727.5 / 727.5 3331.25 / 3031.25 -662.08 / -662.08 Microbiology Past 72 Hours 04/02/19 13:50 Urine Catheter - [place] Urine Culture - Preliminary Klebsiella pneumoniae sp pneum Gram negative dayday#2 Current Medications Ceftriaxone Sodium (Rocephin) 1 gm IM Q24 [facility] Last Admin: 04/04/19 11:57 Dose: 1 gm Documented by: Dicyclomine HCl (Bentyl) 20 mg PO ACHS [facility] Last Admin: 04/04/19 11:55 Dose: 20 mg Documented by: Heparin Sodium (Porcine) (Heparin Na) 5,000 unit SC Q12 [facility] Last Admin: 04/04/19 10:26 Dose: 5,000 unit Documented by: Sodium Chloride () 1,000 mls @ 100 mls/hr IV .Q10H [facility] Lisinopril (Zestril) 20 mg PO DAILY [facility] Metoclopramide HCl (Reglan) 10 mg PO Q6H PRN PRN PRN Reason: NAUSEA Metoprolol Tartrate (Lopressor (Beta Ramila)) 5 mg IV Q6H PRN PRN PRN Reason: BLOOD PRESSURE Ondansetron HCl (Zofran Odt) 4 mg PO Q4H PRN PRN PRN Reason: NAUSEA Last Admin: 04/04/19 10:32 Dose: 4 mg Documented by: Pantoprazole Sodium (Protonix) 40 mg PO DAILY [facility] Last Admin: 04/04/19 09:09 Dose: 40 mg Documented by: Code Visit Addendum: Dr. Turner I personally examined the patient and reviewed the chart. I agree with the above. 73-year-old female presenting with nausea and vomiting for 3 days prior to admission. It was felt that she could be having a recurrent UTI, she is growing Klebsiella pneumonia with less than 10,000 colony-forming units. This is unlikely the cause of all of her symptoms though given her unsuccessful attempts at taking oral pills, will continue with IV antibiotics for now. She appears to be very inconsistent in what she tells different providers. She expressed that she had significant abdominal pain earlier this morning and then on my evaluation she denied having abdominal pain at all. We will need to continue to monitor her blood pressure and provide medications as necessary. Unsure as to the disposition at this point, she has difficulty taking pills because of nausea and she does not appear to be at her baseline. Is also unclear if she has had any outpatient work-up for this issue, she was told that she has IBS which is a little bit unusual with a predominant nausea component. OBSV E&M: 00051 Subsequent observation care L2
[2019-04-04] MEDS: Dicyclomine 10 MG Capsule 20 MG PO ×3 (11:55→21:22)
[2019-04-04] MEDS: Ceftriaxone 1 GM Vial IM (11:57)
[2019-04-04 14:07] LABS: Anion Gap 8 (5-15); BUN 14 mg/dL (7-18); BUN/Creat Ratio 11.3 RATIO (10-20); Calcium,Total 8.6 mg/dL (8.5-10.1); Chloride 106 mmol/L (98-107); Creatinine, Serum 1.24 mg/dL (0.55-1.02); EST Glomerular Filtration Rate 45 mL/min (>60); Est Glom Filt Rate - Afr Amer 54 mL/min (>60); Estimated Creatinine Clearance 33.85 ml/min; Glucose 92 mg/dL (74-106); Magnesium 1.7 mg/dL (1.6-2.6); Phosphorus 2.7 mg/dL (2.5-4.9); Potassium 3.5 mmol/L (3.5-5.1); Sodium Level 138 mmol/L (136-145)
[2019-04-04] MEDS: 0.9% Normal Saline 1,000 ML 100 ML IV (14:28)
[2019-04-04] MEDS: Metoclopramide 10 MG Tablet PO (18:10)
[2019-04-04] MEDS: Metoprolol Tartrate 5 MG/5 ML Vial IV (21:35)
--- NOTE | 2019-04-04 22:15 | NURSING ---
Gave report to Kayleigh MITTAL at this time, she is taking care over at this time.
[2019-04-05] MEDS: 0.9% Normal Saline 1,000 ML 100 ML IV ×3 (00:14→20:20)
[2019-04-05] MEDS: Metoclopramide 10 MG Tablet PO (01:50)
[2019-04-05] MEDS: Ondansetron ODT 4 MG Tablet PO (04:27)
[2019-04-05 04:28] VITALS: BP 157/84; PULSE 104; RESP 18; TEMP 36.7; O2SAT 95
[2019-04-05] MEDS: 0.9% Saline Lock 10 ML Syringe IV (05:00)
[2019-04-05] MEDS: Dicyclomine 10 MG Capsule 20 MG PO ×4 (06:11→22:18)
[2019-04-05 09:25] VITALS: BP 160/72; PULSE 72; RESP 16; TEMP 36.7; O2SAT 96
[2019-04-05 09:31] VITALS: PULSE 72
[2019-04-05] MEDS: Metoprolol Tartrate 25 MG Tablet 12.5 MG PO ×2 (09:31→22:29)
[2019-04-05] MEDS: Pantoprazole Sodium 40 MG Tablet PO (09:32)
[2019-04-05] MEDS: Lisinopril 20 MG Tablet PO (09:33)
[2019-04-05] MEDS: Heparin Injection (Vial) 5,000 UNIT/ML VIAL 5000 UNIT SC ×2 (09:33→22:18)
[2019-04-05] MEDS: Ceftriaxone 1 GM/50 ML BAG IV (09:40)
[2019-04-05 11:12] LABS: Anion Gap 7 (5-15); BUN 12 mg/dL (7-18); BUN/Creat Ratio 9.9 RATIO (10-20); Calcium,Total 8.6 mg/dL (8.5-10.1); Chloride 109 mmol/L (98-107); Creatinine, Serum 1.21 mg/dL (0.55-1.02); EST Glomerular Filtration Rate 46 mL/min (>60); Est Glom Filt Rate - Afr Amer 56 mL/min (>60); Estimated Creatinine Clearance 34.69 ml/min; Glucose 117 mg/dL (74-106); Potassium 3.1 mmol/L (3.5-5.1); Sodium Level 141 mmol/L (136-145)
--- NOTE | 2019-04-05 11:43 | PCM.PROGNOTE ---
<Carmine Da Silva - Last Filed: 04/05/19 11:43> Patient Problems: Active and Suspected Problems Cystitis (Acute) Vomiting (Acute) Subjective: Pt does not feel that the reglan and zofran are working, and would like to try compazine next. She states she has no improvement in her nausea, she thinks the bentyl may have helped her abdominal pain but only minimally. No Fever/chills. No cough/SOB. She has been up with assistance to the bathroom with no issues. She is able to keep some PO intake down, will continue full liquid diet. No BM for 6 days, however she has had minimal PO intake for that long as well. - Physical Exam Vitals/I&O's: Vital Signs Temp Pulse Resp BP Pulse Ox 98.1 F 72 16 160/72 H 96 04/05/19 09:25 04/05/19 09:31 04/05/19 09:25 04/05/19 09:25 04/05/19 09:25 Oxygen Delivery Method Room Air Weight: 183 lb 4.995 oz Body Mass Index (BMI) 31.4 Finger Stick Blood Glucose 123 Intake and Output for Last 24 Hours 04/03/19 04/04/19 04/05/19 23:59 23:59 23:59 Intake Total 4581.25 / 4681.25 1437.92 / 1437.92 2695.00 / 2695.00 Output Total 1250 / 1650 1300 / 1500 1100 / 1100 Balance 3331.25 / 3031.25 137.92 / -62.08 1595.00 / 1595.00 General: Alert, Oriented x3, Cooperative HEENT: Atraumatic, PERRLA, EOMI, Normocephalic Neck: Supple, No JVD, Negative Carotid Bruits Lungs: Clear to auscultation, Normal air movement Cardiovascular: Regular rate, No murmurs Abdomen: Bowel Sounds Present, Soft, Tender - diffusely Extremities: No edema, Capillary Refill Less than 3 Seconds Skin: No rashes, No breakdown Musculoskeletal: No Tenderness to Palpation of Joints or Extremities Neurological: Cranial nerves II-XII grossly intact Psych/Mental Status: Depressed, Alert and oriented to time, place, person, mood and affect Microbiology Past 72 Hours 04/02/19 13:50 Urine Catheter - [place] Urine Culture - Final Klebsiella pneumoniae sp pneum Pseudomonas aeroginosa Laboratory Results 04/04/19 13:45: Sodium 138, Potassium 3.5, Chloride 106, Carbon Dioxide 24.0, Anion Gap 8, BUN 14, Creatinine 1.24 H, Estim Creat Clear Calc 33.85, Est GFR (MDRD) Af Amer 54 L, Est GFR (MDRD) Non-Af 45 L, BUN/Creatinine Ratio 11.3, Glucose 92, Calcium 8.6, Phosphorus 2.7, Magnesium 1.7 04/05/19 10:48: Sodium 141, Potassium 3.1 L, Chloride 109 H, Carbon Dioxide 25.0, Anion Gap 7, BUN 12, Creatinine 1.21 H, Estim Creat Clear Calc 34.69, Est GFR (MDRD) Af Amer 56 L, Est GFR (MDRD) Non-Af 46 L, BUN/Creatinine Ratio 9.9 L, Glucose 117 H, Calcium 8.6 Current Medications Dicyclomine HCl (Bentyl) 20 mg PO ACHS [facility] Last Admin: 04/05/19 11:16 Dose: 20 mg Documented by: Heparin Sodium (Porcine) (Heparin Na) 5,000 unit SC Q12 [facility] Last Admin: 04/05/19 09:33 Dose: 5,000 unit Documented by: Sodium Chloride () 1,000 mls @ 100 mls/hr IV .Q10H [facility] Last Admin: 04/05/19 09:25 Dose: 100 mls/hr Documented by: Ceftriaxone Sodium (Rocephin) 1 gm in 50 mls @ 100 mls/hr IV Q24 [facility] Last Infusion: 04/05/19 10:15 Dose: Infused Documented by: Lisinopril (Zestril) 20 mg PO DAILY [facility] Last Admin: 04/05/19 09:33 Dose: 20 mg Documented by: Metoprolol Tartrate (Lopressor (Beta Ramila)) 5 mg IV Q6H PRN PRN PRN Reason: BLOOD PRESSURE Last Admin: 04/04/19 21:35 Dose: 5 mg Documented by: Metoprolol Tartrate (Lopressor (Beta Ramila)) 12.5 mg PO BID [facility] Last Admin: 04/05/19 09:31 Dose: 12.5 mg Documented by: Ondansetron HCl (Zofran Odt) 4 mg PO Q4H PRN PRN PRN Reason: NAUSEA Last Admin: 04/05/19 04:27 Dose: 4 mg Documented by: Pantoprazole Sodium (Protonix) 40 mg PO DAILY [facility] Last Admin: 04/05/19 09:32 Dose: 40 mg Documented by: Prochlorperazine Maleate (Compazine Tablet) 5 mg PO Q6H PRN PRN PRN Reason: NAUSEA/VOMITING Sodium Chloride () 10 - 40 ml IV UD PRN PRN Reason: Midline Flush Last Admin: 04/05/19 05:00 Dose: 20 ml Documented by: Sodium Chloride (0.9% Nacl (Sterile) Posiflush) 10 - 40 ml IV UD PRN PRN Reason: Port access or dressing change Medical Necessity - Tobacco Use Smoking Status: Never smoker Tobacco Use: Non-smoker Assessment/Plan All Active Problems Dizziness (Acute) Acute kidney injury (Acute) Cystitis (Acute) Vomiting (Acute) Near syncope (Acute) Dehydration (Acute) Urinary tract infection (Acute) 1. Recurrent UTI, complicated UTI - no fever/luekocytosis. Urine culture with Klebsiella pna again, suspectible to cephalosporins. Only 1k to 10k growth, also showing pseudomonas but <1000 cfus, suspect colonization of pseudomonas. Unclear if she has colonization or acute UTI. Symptoms of dysuria occurred with onset of N/V, so will continue full treatment course. 2. Intractable nausea - the etiology of this is unclear, and is complicated by chronic nausea/abdominal pain. she feels the reglan and zofran did not help at all yesterday, and wants to try compazine. -potassium and mag replaced. -she refused am lab draws 3. IBS - chronic nausea/vomiting, and chronic abdominal pain - pt states this is what she is treated for chronically as the etiology of her chronic abdominal pain and nausea. She only had minimal relief with increased bentyl dose. Will maintain at this dose. 4. GERD - PPI 5. HTN - 2/2 pain and nauea - improved with lisinopril and metoprolol. DVT ppx: heparin DC planning: minimal improvement in nausea. This patient was seen by Carmine Da Silva PA-C under the supervision of Doctor Johnny. <Eliceo Turner - Last Filed: 04/05/19 13:42> - Physical Exam Vitals/I&O's: Vital Signs Temp Pulse Resp BP Pulse Ox 98.1 F 72 16 160/72 H 96 04/05/19 09:25 04/05/19 09:31 04/05/19 09:25 04/05/19 09:25 04/05/19 09:25 Oxygen Delivery Method Room Air Weight: 183 lb 4.995 oz Body Mass Index (BMI) 31.4 Finger Stick Blood Glucose 123 Intake and Output for Last 24 Hours 04/03/19 04/04/19 04/05/19 23:59 23:59 23:59 Intake Total 4581.25 / 4681.25 1437.92 / 1437.92 2695.00 / 2695.00 Output Total 1250 / 1650 1300 / 1500 1100 / 1100 Balance 3331.25 / 3031.25 137.92 / -62.08 1595.00 / 1595.00 Microbiology Past 72 Hours 04/02/19 13:50 Urine Catheter - [place] Urine Culture - Final Klebsiella pneumoniae sp pneum Pseudomonas aeroginosa Laboratory Results 04/04/19 13:45: Sodium 138, Potassium 3.5, Chloride 106, Carbon Dioxide 24.0, Anion Gap 8, BUN 14, Creatinine 1.24 H, Estim Creat Clear Calc 33.85, Est GFR (MDRD) Af Amer 54 L, Est GFR (MDRD) Non-Af 45 L, BUN/Creatinine Ratio 11.3, Glucose 92, Calcium 8.6, Phosphorus 2.7, Magnesium 1.7 04/05/19 10:48: Sodium 141, Potassium 3.1 L, Chloride 109 H, Carbon Dioxide 25.0, Anion Gap 7, BUN 12, Creatinine 1.21 H, Estim Creat Clear Calc 34.69, Est GFR (MDRD) Af Amer 56 L, Est GFR (MDRD) Non-Af 46 L, BUN/Creatinine Ratio 9.9 L, Glucose 117 H, Calcium 8.6 Current Medications Dicyclomine HCl (Bentyl) 20 mg PO ACHS [facility] Last Admin: 04/05/19 11:16 Dose: 20 mg Documented by: Heparin Sodium (Porcine) (Heparin Na) 5,000 unit SC Q12 [facility] Last Admin: 04/05/19 09:33 Dose: 5,000 unit Documented by: Sodium Chloride () 1,000 mls @ 100 mls/hr IV .Q10H [facility] Last Admin: 04/05/19 09:25 Dose: 100 mls/hr Documented by: Ceftriaxone Sodium (Rocephin) 1 gm in 50 mls @ 100 mls/hr IV Q24 [facility] Last Infusion: 04/05/19 10:15 Dose: Infused Documented by: Lisinopril (Zestril) 20 mg PO DAILY [facility] Last Admin: 04/05/19 09:33 Dose: 20 mg Documented by: Metoprolol Tartrate (Lopressor (Beta Ramila)) 5 mg IV Q6H PRN PRN PRN Reason: BLOOD PRESSURE Last Admin: 04/04/19 21:35 Dose: 5 mg Documented by: Metoprolol Tartrate (Lopressor (Beta Ramila)) 12.5 mg PO BID [facility] Last Admin: 04/05/19 09:31 Dose: 12.5 mg Documented by: Ondansetron HCl (Zofran Odt) 4 mg PO Q4H PRN PRN PRN Reason: NAUSEA Last Admin: 04/05/19 04:27 Dose: 4 mg Documented by: Pantoprazole Sodium (Protonix) 40 mg PO DAILY [facility] Last Admin: 04/05/19 09:32 Dose: 40 mg Documented by: Prochlorperazine Maleate (Compazine Tablet) 5 mg PO Q6H PRN PRN PRN Reason: NAUSEA/VOMITING Sodium Chloride () 10 - 40 ml IV UD PRN PRN Reason: Midline Flush Last Admin: 04/05/19 05:00 Dose: 20 ml Documented by: Sodium Chloride (0.9% Nacl (Sterile) Posiflush) 10 - 40 ml IV UD PRN PRN Reason: Port access or dressing change Code Visit Addendum: Dr. Turner I personally examined the patient and reviewed the chart. I agree with the above. 73-year-old female presenting with nausea and vomiting for several days prior to admission, she is still continued to have some nausea. She is tolerating a little bit of full liquid diet however she has not achieved much remission with Zofran and Reglan, she would like to try some Compazine and see if that helps with her nausea. She states that at times she has improvement with Bentyl as well. At this point if she has not had any improvement with the Compazine and she has been appropriately treated for Klebsiella UTI, though that is a week UTI given that she is only had 1000-10,000 colony-forming units, may need to get surgery on board for an EGD for evaluation. OBSV E&M: 14253 Subsequent observation care L2
[2019-04-05 14:55] VITALS: BP 167/64; PULSE 82; RESP 17; TEMP 36.6; O2SAT 98
[2019-04-05 20:25] VITALS: BP 170/76; PULSE 76; RESP 16; TEMP 36.7; O2SAT 98
[2019-04-05 22:29] VITALS: BP 170/76; PULSE 76
[2019-04-06] VITALS (8 sets, daily range): BP systolic 155–195; BP diastolic 66–82; PULSE 69–84; RESP 16–18; TEMP 36.6–37; O2SAT 96–99
[2019-04-06] MEDS: Metoprolol Tartrate 5 MG/5 ML Vial IV (03:06)
[2019-04-06] MEDS: Dicyclomine 10 MG Capsule 20 MG PO ×2 (06:04→12:23)
[2019-04-06] MEDS: 0.9% Normal Saline 1,000 ML 100 ML IV (06:04)
[2019-04-06] MEDS: hydrALAZINE 20 MG/ML Vial 10 MG IV (06:19)
[2019-04-06] MEDS: Metoprolol Tartrate 25 MG Tablet 12.5 MG PO (08:28)
[2019-04-06] MEDS: Lisinopril 20 MG Tablet PO ×2 (08:28→10:02)
[2019-04-06] MEDS: Pantoprazole Sodium 40 MG Tablet PO (08:28)
[2019-04-06] MEDS: Heparin Injection (Vial) 5,000 UNIT/ML VIAL 5000 UNIT SC (08:29)
[2019-04-06] MEDS: Ceftriaxone 1 GM/50 ML BAG IV (10:04)
--- NOTE | 2019-04-06 10:56 | DCINST_ITS ---
- Discharge Diagnoses Current Active Problems: Current Active and Chronic Problems Cystitis (Acute) Vomiting (Acute) You will use the following diet at home:: Cardiac Your food should be the consistency of: Regular Your liquids should be the consistency of: Regular/Thin Discharge Activity: Return to Normal Activity Additional Instructions: Talk to your primary care doctor about referral to gastroenterology for your chronic abdominal pain, nausea, and irritable bowel syndrome. Allergies/Adverse Reactions: Allergies codeine Allergy (Verified 03/10/19 08:49) Nausea ANESTHETICS Allergy (Uncoded 03/10/19 08:49) Vomiting Medications to take at Discharge Pantoprazole Sodium [Protonix] 40 mg PO DAILY #30 tab 03/14/19 Dicyclomine HCl [Bentyl] 20 mg PO ACHS #112 cap 04/06/19 Lisinopril 40 mg PO DAILY #30 tab 04/06/19 Metoprolol Tartrate [Lopressor (beta dread)] 12.5 mg PO BID #30 tab 04/06/19 Ondansetron [Zofran Odt] 4 mg PO Q6H PRN PRN #112 tab 04/06/19 The following prescriptions were given: Dicyclomine HCl [Bentyl] 20 mg PO ACHS #112 cap Transmission Status: Pending to [facility] Lisinopril 40 mg PO DAILY #30 tab Transmission Status: Pending to [facility] Metoprolol Tartrate [Lopressor (beta dread)] 12.5 mg PO BID #30 tab Transmission Status: Pending to [facility] Ondansetron [Zofran Odt] 4 mg PO Q6H PRN PRN #112 tab PRN Reason: NAUSEA Transmission Status: Pending to [facility] Primary Care Physician: Nohemi Cardoza MD [Primary Care Provider] - Please follow up with your Primary Care Physician in: 1-2 weeks Test Results: Test results from this visit will be discussed in further detail at your follow- up appointment, if applicable. Proposed Discharge Date: 04/06/19
--- NOTE | 2019-04-06 11:46 | PHA.DC.MC ---
Pharmacy Service has performed discharge medication reconciliation and counseling for this patient. 1. LISINOPRIL 40MG PO DAILY 2. METOPROLOL TARTRATE 12.5MG PO BID 3. ONDANSETRON 4MG PO Q6H PRN NAUSEA The patient's discharge medication list was reviewed for discrepancies and discrepancies were resolved. Home Medications Pantoprazole Sodium [Protonix] 40 mg PO DAILY #30 tab 03/14/19 Dicyclomine HCl [Bentyl] 20 mg PO ACHS #112 cap 04/06/19 Lisinopril 40 mg PO DAILY #30 tab 04/06/19 Metoprolol Tartrate [Lopressor (beta dread)] 12.5 mg PO BID #30 tab 04/06/19 Ondansetron [Zofran Odt] 4 mg PO Q6H PRN PRN #112 tab 04/06/19 The patient was counseled on the following discharge medications and changes in medications for homegoing were reviewed. The Reason for Use, instructions for use, and potential side effects were reviewed for all new medications. The patient's questions regarding all of their medications were answered. The patient was able to verbally demonstrate an understanding of their discharge medications.
[2019-04-06 11:51] LABS: Anion Gap 7 (5-15); BUN 10 mg/dL (7-18); BUN/Creat Ratio 9.1 RATIO (10-20); Calcium,Total 8.8 mg/dL (8.5-10.1); Chloride 111 mmol/L (98-107); EST Glomerular Filtration Rate 51 mL/min (>60); Est Glom Filt Rate - Afr Amer 62 mL/min (>60); Estimated Creatinine Clearance 38.16 ml/min; Glucose 111 mg/dL (74-106); Potassium 3.3 mmol/L (3.5-5.1); Sodium Level 140 mmol/L (136-145)
--- NOTE | 2019-04-06 13:08 | DS.PCM_ITS ---
<Carmine Da Silva - Last Filed: 04/06/19 13:08> Discharge Date and Diagnosis - Problem List Patient Problems: Active and Suspected Problems Cystitis (Acute) Vomiting (Acute) Date of Admission: 04/02/19 Date of Discharge: 04/06/19 - Primary Discharge Diagnosis Active and Suspected Problems Acute recurrent UTI, Klebsiella pneumoniae Colonization with Pseudomonas aeroginosa Intractable nausea and vomiting Chronic abdominal pain and nausea Irritable bowel syndrome Hypokalemia GERD HTN - Secondary Discharge Diagnosis Chronic Problems GERD (gastroesophageal reflux disease) (Chronic) Chronic abdominal pain (Chronic) Hospital Course and Treatment Imaging Results: RAD/Abdomen Single View (Portable) IMPRESSION: Nonspecific gas pattern. Operations: None Procedures: None Summary of Care Provided: Hospital course: The patient is a 73 year old F with pmhx of IBS, chronic abdominal pain and nausea, otherwise as above, who presented to the ER with c/o nausea and vomiting. The patient had ongoing issues with this for about a month and a half and associated it with the onset of a UTI. At the same time she also had her bentyl dose decresaed for her IBS. She was treated for UTI (Klebsiella) inpatient and outpatient however after discharge the PO antibiotics made her very nauseous and vomit so she could not complete them. She did not have fever or leukocytosis however UA was significant and she did report dysuria. She was admitted and started on rocephin for UTI. Cultures were sent and ultimately grew 1000-10k CFUs of Klebsiella pneumonia and <1000 pseudomonas aeruginonsa. She completed a full course of Abx while here. She had severe difficulty with nausea vomiting and cramping abdominal pain while here. Her bentyl was increased to 20 mg ACHS and she was treated with multiple antiemetics ultimately with zofran being the most effective. Diet was advanced successully. She was discharged home in stable conidition and will need follow up with her PCP. As she has ongoing difficulty with IBS, chronic nausea, and vomiting she would benefit from referral to a rn flight as an outpatient. She had no homegoing needs. Also of note while here she had uncontrolled hypertension. She was started on lisinopril at increasing doses and metoprolol. She will need to follow up with her PCP regarding this too as she will likely need further adjustment of her anithn regimen. Pt was discharged home in stable condition. This patient was seen by Carmine Da Silva PA-C under the supervision of Doctor Nayely. [] Patient Problems: Active and Suspected Problems Cystitis (Acute) Vomiting (Acute) - Physical Exam Vitals/I&O's: Vital Signs Temp Pulse Resp BP Pulse Ox 97.9 F 70 18 174/71 H 96 04/06/19 11:00 04/06/19 11:00 04/06/19 11:00 04/06/19 11:00 04/06/19 11:00 Oxygen Delivery Method Room Air Weight: 183 lb 4.995 oz Body Mass Index (BMI) 31.4 Finger Stick Blood Glucose 123 Intake and Output for Last 24 Hours 04/04/19 04/05/19 04/06/19 23:59 23:59 23:59 Intake Total 1437.92 / 1437.92 4474.00 / 4824.00 3173.33 / 3173.33 Output Total 1300 / 1500 1800 / 2850 2550 / 2550 Balance 137.92 / -62.08 2674.00 / 1974.00 623.33 / 623.33 General: Alert, Oriented x3, Cooperative HEENT: Atraumatic, PERRLA, EOMI, Normocephalic Neck: Supple, No JVD, Negative Carotid Bruits Lungs: Clear to auscultation, Normal air movement Cardiovascular: Regular rate, No murmurs Abdomen: Bowel Sounds Present, Soft, Non Tender Extremities: No edema, Capillary Refill Less than 3 Seconds Skin: No rashes, No breakdown Musculoskeletal: No Tenderness to Palpation of Joints or Extremities Neurological: Cranial nerves II-XII grossly intact Psych/Mental Status: Normal Affect, Appropriate, Alert and oriented to time, place, person, mood and affect Microbiology Past 72 Hours 04/02/19 13:50 Urine Catheter - Davis Urine Culture - Final Klebsiella pneumoniae sp pneum Pseudomonas aeroginosa Laboratory Results 04/06/19 11:18: Sodium 140, Potassium 3.3 L, Chloride 111 H, Carbon Dioxide 22.0, Anion Gap 7, BUN 10, Creatinine 1.10 H, Estim Creat Clear Calc 38.16, Est GFR (MDRD) Af Amer 62, Est GFR (MDRD) Non-Af 51 L, BUN/Creatinine Ratio 9.1 L, Glucose 111 H, Calcium 8.8 Current Medications Dicyclomine HCl (Bentyl) 20 mg PO ACHS [facility] Last Admin: 04/06/19 12:23 Dose: 20 mg Documented by: Heparin Sodium (Porcine) (Heparin Na) 5,000 unit SC Q12 [facility] Last Admin: 04/06/19 08:29 Dose: 5,000 unit Documented by: Hydralazine HCl (Apresoline Iv) 10 mg IV Q6H PRN PRN PRN Reason: BLOOD PRESSURE Last Admin: 04/06/19 06:19 Dose: 10 mg Documented by: Sodium Chloride () 1,000 mls @ 100 mls/hr IV .Q10H [facility] Last Infusion: 04/06/19 10:34 Dose: 100 mls/hr Documented by: Ceftriaxone Sodium (Rocephin) 1 gm in 50 mls @ 100 mls/hr IV Q24 [facility] Last Infusion: 04/06/19 10:34 Dose: Infused Documented by: Lisinopril (Zestril) 40 mg PO DAILY [facility] Metoprolol Tartrate (Lopressor (Beta Ramila)) 12.5 mg PO BID [facility] Last Admin: 04/06/19 08:28 Dose: 12.5 mg Documented by: Ondansetron HCl (Zofran Odt) 4 mg PO Q4H PRN PRN PRN Reason: NAUSEA Last Admin: 04/05/19 04:27 Dose: 4 mg Documented by: Pantoprazole Sodium (Protonix) 40 mg PO DAILY [facility] Last Admin: 04/06/19 08:28 Dose: 40 mg Documented by: Prochlorperazine Maleate (Compazine Tablet) 5 mg PO Q6H PRN PRN PRN Reason: NAUSEA/VOMITING Sodium Chloride () 10 - 40 ml IV UD PRN PRN Reason: Midline Flush Last Admin: 04/05/19 05:00 Dose: 20 ml Documented by: Sodium Chloride (0.9% Nacl (Sterile) Posiflush) 10 - 40 ml IV UD PRN PRN Reason: Port access or dressing change Discharge Diet: Low fat/ Low Cholesterol, 2000 mg Sodium Diet Discharge Activity: Return to Normal Activity Home Medications: Medications to take at Discharge Pantoprazole Sodium [Protonix] 40 mg PO DAILY #30 tab 03/14/19 Dicyclomine HCl [Bentyl] 20 mg PO ACHS #112 cap 04/06/19 Lisinopril 40 mg PO DAILY #30 tab 04/06/19 Metoprolol Tartrate [Lopressor (beta ramila)] 12.5 mg PO BID #30 tab 04/06/19 Ondansetron [Zofran Odt] 4 mg PO Q6H PRN PRN #112 tab 04/06/19 Following Prescrptions Were Given to Patient: Dicyclomine HCl [Bentyl] 20 mg PO ACHS #112 cap Transmission Status: Received by [address] Lisinopril 40 mg PO DAILY #30 tab Transmission Status: Received by [address] Metoprolol Tartrate [Lopressor (beta ramila)] 12.5 mg PO BID #30 tab Transmission Status: Received by [address] Ondansetron [Zofran Odt] 4 mg PO Q6H PRN PRN #112 tab PRN Reason: NAUSEA Transmission Status: Received by [address] Primary Care Physician: Nohemi Cardoza MD [Primary Care Provider] - Please follow up with your Primary Care Physician in: 1-2 weeks Disposition: Home Minutes spent on discharge:: 35 Patient Condition:: Stable Medical Necessity - Tobacco Use Smoking Status: Never smoker Tobacco Use: Non-smoker Meaningful Use Info Meaningful Use Diagnoses (Choose all that apply): None applicable <Roby Adler - Last Filed: 04/06/19 13:53> Discharge Date and Diagnosis - Primary Discharge Diagnosis Active and Suspected Problems Cystitis (Acute) Vomiting (Acute) - Secondary Discharge Diagnosis Chronic Problems GERD (gastroesophageal reflux disease) (Chronic) Chronic abdominal pain (Chronic) Hospital Course and Treatment Summary of Care Provided: This patient was seen in conjunction with Carmine Da Silva PA-C . I have independently interviewed and examined the patient and reviewed pertinent historical, laboratory, and other data. Please refer to Carmine Da Silva PA-C note for details of this patient's presentation, findings, and recommendations. I have reviewed Carmine Da Silva PA-C note and concur with documented findings. In brief, patient is a 73-year-old lady admitted with intractable nausea vomiting found to have recurrent complicated UTI admitted to regular nursing floor where patient was managed per protocol. Patient condition did improve after 4 days of hospitalization discharged home instructed to follow-up with PCP Hospital course: As documented above by TRAVIS Hatch?C - Physical Exam Vitals/I&O's: Vital Signs Temp Pulse Resp BP Pulse Ox 97.9 F 70 18 174/71 H 96 04/06/19 11:00 04/06/19 11:00 04/06/19 11:00 04/06/19 11:00 04/06/19 11:00 Oxygen Delivery Method Room Air Weight: 83.149 kg Body Mass Index (BMI) 31.4 Finger Stick Blood Glucose 123 Intake and Output for Last 24 Hours 04/04/19 04/05/19 04/06/19 23:59 23:59 23:59 Intake Total 1437.92 / 1437.92 4474.00 / 4824.00 3173.33 / 3173.33 Output Total 1300 / 1500 1800 / 2850 2550 / 2550 Balance 137.92 / -62.08 2674.00 / 1974.00 623.33 / 623.33 Microbiology Past 72 Hours 04/02/19 13:50 Urine Catheter - Davis Urine Culture - Final Klebsiella pneumoniae sp pneum Pseudomonas aeroginosa Laboratory Results 04/06/19 11:18: Sodium 140, Potassium 3.3 L, Chloride 111 H, Carbon Dioxide 22.0, Anion Gap 7, BUN 10, Creatinine 1.10 H, Estim Creat Clear Calc 38.16, Est GFR (MDRD) Af Amer 62, Est GFR (MDRD) Non-Af 51 L, BUN/Creatinine Ratio 9.1 L, Glucose 111 H, Calcium 8.8 Current Medications Dicyclomine HCl (Bentyl) 20 mg PO ACHS [facility] Last Admin: 04/06/19 12:23 Dose: 20 mg Documented by: Heparin Sodium (Porcine) (Heparin Na) 5,000 unit SC Q12 [facility] Last Admin: 04/06/19 08:29 Dose: 5,000 unit Documented by: Hydralazine HCl (Apresoline Iv) 10 mg IV Q6H PRN PRN PRN Reason: BLOOD PRESSURE Last Admin: 04/06/19 06:19 Dose: 10 mg Documented by: Sodium Chloride () 1,000 mls @ 100 mls/hr IV .Q10H [facility] Last Infusion: 04/06/19 10:34 Dose: 100 mls/hr Documented by: Ceftriaxone Sodium (Rocephin) 1 gm in 50 mls @ 100 mls/hr IV Q24 [facility] Last Infusion: 04/06/19 10:34 Dose: Infused Documented by: Lisinopril (Zestril) 40 mg PO DAILY [facility] Metoprolol Tartrate (Lopressor (Beta Ramila)) 12.5 mg PO BID [facility] Last Admin: 04/06/19 08:28 Dose: 12.5 mg Documented by: Ondansetron HCl (Zofran Odt) 4 mg PO Q4H PRN PRN PRN Reason: NAUSEA Last Admin: 04/05/19 04:27 Dose: 4 mg Documented by: Pantoprazole Sodium (Protonix) 40 mg PO DAILY [facility] Last Admin: 04/06/19 08:28 Dose: 40 mg Documented by: Prochlorperazine Maleate (Compazine Tablet) 5 mg PO Q6H PRN PRN PRN Reason: NAUSEA/VOMITING Sodium Chloride () 10 - 40 ml IV UD PRN PRN Reason: Midline Flush Last Admin: 04/05/19 05:00 Dose: 20 ml Documented by: Sodium Chloride (0.9% Nacl (Sterile) Posiflush) 10 - 40 ml IV UD PRN PRN Reason: Port access or dressing change Code Visit OBSV E&M: 59122 Observation care discharge
--- NOTE | 2019-04-06 13:40 | CASEMGMT ---
SW gave patient a list of primary care doctors per her request. Kiki POTTER SWINE NUTRITIONIST
== END 2019-04-06 14:53 | disposition home or self-care (01) ==
LOC: ED 14:41 → PCU 16:45
PROVIDERS: Physician Assistant; Admitting Provider Internal Medicine; Emergency Provider Emergency Medicine; Family Provider Internal Medicine; PCP Internal Medicine; Referring Provider Internal Medicine; Visit Provider Internal Medicine
DX: N30.00 Acute cystitis without hematuria (principal); R11.2 Nausea with vomiting, unspecified; K21.9 Gastro-esophageal reflux disease without esophagitis; Z79.899 Other long term (current) drug therapy; B96.1 Klebsiella pneumoniae [K. pneumoniae] as the cause of diseases classified elsewhere; I12.9 Hypertensive chronic kidney disease with stage 1 through stage 4 chronic kidney disease, or unspecified chronic kidney disease; N18.3 Chronic kidney disease, stage 3 (moderate); K58.9 Irritable bowel syndrome, unspecified; R80.9 Proteinuria, unspecified; E87.6 Hypokalemia
CPT/HCPCS: 36415; 74018; 80048; 81001; 83735; 84100; 85025; 87077; 87086; 87088; 87186; 96361; 96365; 96366; 96372; 96375; 96376; 97161; 97166; 99218; 99285; J7030; A4216; G0378; J2405

== ENCOUNTER 2019-04-13 11:22 | Emergency (ER) | payer MEDICARE, SELFPAY ==
[2019-04-02 16:19] VITALS: BMI 31.4
[2019-04-13 11:23] VITALS: BP 150/81; PULSE 84; RESP 17; TEMP 36.8
[2019-04-13] MEDS: diazePAM 5 MG Tablet PO (13:08)
--- NOTE | 2019-04-13 13:11 | ED.VIS.GI ---
History of Present Illness Chief Complaint: Constipation Informant: Patient - Abdominal Pain/Flank Pain Onset: Weeks Context: Gradual Onset Timing: Continuous Quality: - - fullness Location: - - lower abdomen, rectal - Nausea/Vomiting/Emesis GI Symptom: Negative for: Nausea, Vomiting - Diarrhea/Melena/Hematochezia GI Symptom: - - Constipation Narrative: Patient is a 73-year-old female with history of cystitis, constipation and anemia presents with constipation. She states she has not a bowel movement in 3 to 4 weeks. Patient states she had multiple episodes of vomiting and MONICA with 2 hospitalizations over the last month. She states all of those complaints have resolved. She notes she was taken off all of her medications while hospitalized so she was off of her regiment of Metamucil and Miralax. She has been taking these for the past week again. She also tried a fleet enema last night and her noticed a very hard ball of stool in her rectum. He tried to remove it but was unsuccessful. Patient states that she is passing gas. She has pain and fulness at her rectum and feels that she needs to have a bowel movement. She denies any other complaints at this time. Past Medical History - Allergies and Home Meds Allergies/Adverse Reactions: Allergies codeine Allergy (Verified 04/13/19 11:22) Nausea ANESTHETICS Allergy (Uncoded 04/13/19 11:22) Vomiting Primary Care Physician: Nohemi Cardoza MD [Primary Care Provider] - Surgical History: appendectomy, cholecystectomy, hysterectomy, tonsillectomy, - - Salpingoophorectomy Smoking Status: Never smoker - Family History Maternal Family History: Reports: No pertinent history Paternal Family History: Reports: No pertinent history Review of Systems General: Denies: Chills, Fever, Sweats Eyes: Denies: Visual changes - bilaterally, Diplopia ENT: Denies: Rhinorrhea, Sore throat Cardiovascular: Denies: Chest pain, Palpitations Respiratory: Denies: Dyspnea, Cough, Dyspnea on exertion Gastrointestinal: Reports: Abdominal pain, Constipation. Denies: Nausea, Vomiting, Diarrhea, Melena, Hematochezia Genitourinary: Denies: Dysuria, Hematuria, Frequency Musculoskeletal: Denies: Back pain, Extremity Pain Skin: Denies: Rash, Wounds Neurological: Denies: Headache, Weakness, Numbness Physical Exam Vital Signs/Narrative: Vital Signs Temp Pulse Resp BP 04/13/19 11:23 98.2 F 84 17 150/81 H Inital Vital Signs reviewed: Yes General: Well nourished, Well developed, No Acute Distress Head: Normocephalic, Atraumatic Eyes: Perrl, EOMI ENT: Moist mucous membranes, No rhinorrhea Neck: Supple, Nontender Cardiovascular: Regular rate, Regular rhythm, No murmurs Respiratory: No distress, CTA bilaterally, Chest nontender Abdomen: Soft, Nontender, Nondistended, Normal bowel sounds. Negative for: Guarding, Rebound tenderness, Hypoactive bowel sounds Rectal: Tenderness - hemorrhoids present, small but pliable ball of stool palpated but I am unable to remove on digital rectal exam Back: Nontender, Normal Inspection Extremities: Nontender, No edema Skin: Normal color, No rash Neurological: Alert, Oriented x3, Cranial nerves II-XII grossly intact, Normal Strength, Normal Sensation Psychological: Normal affect, Normal Mood Diagnostic/Tx/Re-eval Clinical Impression(s) from Imaging Studies KUB X-Ray 04/13/19 15:15 IMPRESSION: Normal x-ray examination of the abdomen and pelvis. Electronically Signed: Florence Louie, at 15:54 EST Tel , Service support , - Medical Decision Making Patient is evaluated for constipation. She appears nontoxic and in no acute distress. Her vital signs are normal. She is not having abdominal pain. She is still passing gas. Initially patient was given a dose of Valium and viscous lidocaine per rectum to help with digital rectal exam. Do not palpate a mechanical obstruction but patient does have stool in the rectal vault. Patient does not tolerate digital rectal exam well. KUB is obtained which does not show any free air or obstructive bowel gas pattern. Patient does have a large amount of stool on the x-ray. Patient is not given a soapsuds enema. She does have a good bowel movement after this. She states she is ready to go home she will continue to take her MiraLAX and Metamucil. Patient is counseled on signs and symptoms requiring return to the emergency room. Patient verbalizes agreement and understand this plan. Patient discharged home in stable and improved condition. ED Disposition - Plan for ED Patient: Disposition: Home or Assisted Living Diagnosis: Constipation Instructions: CONSTIPATION (Adult) Prescriptions: Docusate Sodium [Colace] 100 mg PO BID PRN PRN #20 cap PRN Reason: Constipation Prescription Printed Referrals: Nohemi Cardoza MD [Primary Care Provider] - Additional Instructions: Continue to take MiraLAX and Metamucil daily. Also start taking Colace. Hopefully will start having regular bowel movements. Call your primary care doctor to follow-up. Return if you have worsening symptoms.
[2019-04-13 13:38] VITALS: RESP 18
[2019-04-13] MEDS: Lidocaine Jelly 2% 20 ML Syringe (URO-JET) 20 APPLIC TOPICAL (15:14)
[2019-04-13 15:15] VITALS: RESP 18
--- NOTE | 2019-04-13 15:15 | RAD_ITS ---
STUDY: X-RAY - ABDOMEN/PELVIS REASON FOR EXAM: Female, 73 years old. TECHNIQUE: 2 views COMPARISON: None. FINDINGS: Normal visualized lung bases. There is an unremarkable bowel gas pattern. There is no demonstrated free abdominal air. The visualized liver, spleen and kidneys are grossly normal in size and morphology. Normal soft tissue structures. Normal visualized osseous structures. RAD/Abdomen Single View IMPRESSION: Normal x-ray examination of the abdomen and pelvis. Electronically Signed: Florence Louie, at 15:54 EST Tel , Service support ,
[2019-04-13 17:57] VITALS: RESP 20
== END 2019-04-13 17:57 | disposition home or self-care (01) ==
PROVIDERS: Emergency Provider Emergency Medicine; Family Provider Internal Medicine; PCP Internal Medicine
DX: K59.00 Constipation, unspecified (principal); Z90.49 Acquired absence of other specified parts of digestive tract; Z90.710 Acquired absence of both cervix and uterus
CPT/HCPCS: 74018; 99284

== ENCOUNTER 2019-04-27 01:22 | Inpatient (IN) | payer MEDICARE, SELFPAY ==
[2019-04-27] VITALS (11 sets, daily range): BP systolic 114–177; BP diastolic 61–82; PULSE 83–110; RESP 16–20; TEMP 36.5–36.8; O2SAT 95–100; BMI 29.2; BMI 28.8
--- NOTE | 2019-04-27 01:52 | EKG12_ITS ---
Test Reason : DYSRHYTHMIA Blood Pressure : / mmHG Vent. Rate : 085 BPM Atrial Rate : 085 BPM P-R Int : 142 ms QRS Dur : 072 ms QT Int : 364 ms P-R-T Axes : 052 -07 036 degrees QTc Int : 433 ms Normal sinus rhythm Normal ECG Confirmed by MOMO SUNG, SANDRA ([id number]), editor newspaper GARRETT MAYORGA ([id number]) on 04/29/2019 11:41:02 AM Referred By: Confirmed By:SANDRA BARR MD
--- NOTE | 2019-04-27 01:54 | ED.VISSUMM ---
- ER Visit Summary Date of Service: 04/27/19 Chief Complaint: Blood pressure check History of Present Illness: The patient is a 73 F presenting for blood pressure check. Patient states that she was admitted to the hospital mid March with UTI. Throughout her hospital stay she had uncontrolled hypertension. She was started on lisinopril 40 mg daily and Lopressor 12.5 mg twice a day. She states she was not previously on blood pressure medications. She did follow-up with her primary care physician last week and no changes were made to her blood pressure medications. She states she feels lightheaded if she stands up quickly. She has had no syncope. She denies chest pain. She states she gets short of breath when she walks around. She states this has been ongoing since before her hospitalization. She states she is having trouble taking a deep breath. She denies fever. Denies headache. Denies other complaints. Blood pressure readings at home have been systolic ranging from 118-130. Today she had a reading of 102/64. Physical Examination: Vitals are stable. Blood pressure 155/70, heart rate 96, pulse ox 99% on room air. Patient is afebrile. Alert no acute distress. HEENT exam is unremarkable. Neck is supple. Lungs are clear and equal bilaterally. Heart is regular rate and rhythm. Abdomen is soft nontender nondistended. Extremities are unremarkable. Skin is warm and dry. No focal neurologic deficit. Remainder of exam is unremarkable. Emergency Department Course and Treatment: EKG is sinus rate of 85 with no acute ischemic changes. CBC normal except hemoglobin 11.3. Chemistries show glucose 118, creatinine 2.03. Urinalysis shows 50-100 white blood cells, positive leukocytes, positive nitrites. Urine culture was sent. Lactic acid 2.2. She was given IV fluids. Troponin negative. D-dimer 0.50. With age adjustment, her d-dimer is normal. She does have symptoms concerning for PE with recent hospitalization, pain with inspiration, dyspnea on exertion, dizziness. Unable to obtain a CTA of her chest at this time due to her elevated creatinine. She was given cefepime IV after reviewing recent urine cultures. With ambulation her pulse ox is 94% on room air. Discussed with the hospitalist for admission. Disposition: Admission Impression: MONICA, UTI This note was generated with [email or web address]comation software. It may contain incorrect words, spelling, and punctuation that were not noted in review of the chart prior to signing ED Disposition - Plan for ED Patient: Referrals: Nohemi Cardoza MD [Primary Care Provider] -
--- NOTE | 2019-04-27 02:00 | RAD_ITS ---
STUDY: X-RAY CHEST REASON FOR EXAM: Female, 73 years old. Shortness of breath. TECHNIQUE: AP portable chest. COMPARISON: March 10, 2019. FINDINGS: The lungs are clear and expanded. There is no demonstrated pleural abnormality. Normal size heart. Normal mediastinum and victor m. Normal visualized pulmonary arteries. Normal visualized aortic arch and descending thoracic aorta. Normal visualized thoracic spine. Normal visualized ribs, clavicles, and shoulders. There is no demonstrated abnormality of the visualized soft tissue structures of the upper abdomen. RAD/Chest 1 View IMPRESSION: No acute cardiopulmonary disease. Electronically Signed: Alex Alas MD at 2:43 EST , Service support ,
[2019-04-27 02:36] LABS: Absolute Lymphocyte Count 0.93 X10^3/uL (0.83-4.51); Absolute Neutrophil Count 4.1 X10^3/uL (2.0-7.7); Basophil# 0.05 X10^3/uL; Basophil% 0.9 % (0-1); Eosinophil# 0.17 X10^3/uL; Hematocrit 34.6 % (37-47); Hemoglobin 11.3 g/dL (12.0-15.0); Lymphocyte # 0.93 X10^3/ul (4.0); Lymphocyte % 16.2 % (19-41); Mean Corp Hgb Conc 32.7 g/dL (32-36); Mean Corpuscular Hgb 31.4 pg (27.0-32.0); Mean Corpuscular Volume 96.1 fL (81-99); Mean Platelet Vol. 10.5 fl (6.2-12.0); Monocyte# 0.44 X10^3/uL; Monocyte% 7.7 % (0-10); NRBC Flagged by Analyzer 0 % (0-5); Neutrophil # 4.13 X10^3/uL (2.7-7.7); Platelet Count 162 K/mm3 (150-450); RBC Distribution Width SD 45.8 fl (35.1-43.9); White Blood Count 5.7 K/mm3 (4.4-11.0)
[2019-04-27 02:49] LABS: Mucous, Urine 0 SEEN /hpf (<or=2+); Red Blood Cells-Urine 0 SEEN /hpf (0-5); Squamous Epithelial Cells - UA 0 SEEN /hpf (5-10)
[2019-04-27 02:54] LABS: Anion Gap 9 (5-15); BUN 14 mg/dL (7-18); BUN/Creat Ratio 6.9 RATIO (10-20); Calcium,Total 9.9 mg/dL (8.5-10.1); Chloride 107 mmol/L (98-107); Creatinine, Serum 2.03 mg/dL (0.55-1.02); EST Glomerular Filtration Rate 25 mL/min (>60); Est Glom Filt Rate - Afr Amer 31 mL/min (>60); Estimated Creatinine Clearance 20.68 ml/min; Glucose 118 mg/dL (74-106); Potassium 4.1 mmol/L (3.5-5.1); Sodium Level 142 mmol/L (136-145)
[2019-04-27 03:00] LABS: Color, Urine Yellow (Yellow); Glucose, Dipstick Normal (Normal); Ketone-Dipstick Negative (Negative); Leukocyte Esterase-Dipstick 500 /ul (Negative); Nitrite-Dipstick Positive (Negative); Occult Blood-Urine 150 /ul (Negative); Protein-Dipstick 100 mg/dl (Negative); Specific Gravity, Urine 1.015 (1.002-1.030); Urine Bilirubin Dipstick Negative (Negative); Urine Clarity Turbid (Clear); Urine Urobilinogen Normal (Normal)
[2019-04-27 03:18] LABS: Bacteria 3+ /hpf (None Seen); White Blood Cells 50-100 SEEN /hpf (0-5)
[2019-04-27 03:20] LABS: Lactic Acid 2.2 mmol/L (0.4-1.9)
[2019-04-27] MEDS: 0.9% Normal Saline 1,000 ML 999 ML IV (04:20)
--- NOTE | 2019-04-27 04:42 | HP.PCM_ITS ---
History of Present Illness Date of Admission: 04/27/19 Chief Complaint: Blood pressure check The patient is a 73 year old F with a PMH as below presents to the hospital for blood pressure check at 2 in the morning. She was recently started on new blood pressure medications and had been doing fine with them until this evening where she noticed a blood pressure in the low 100s. She is only symptomatic if she stands up quickly otherwise she has not had any syncope or generalized lightheadedness. She says that most of her blood pressures at home have been ranging between 118 and 130. She has had a recent history of UTIs as well as an episode of GI bleeding. She has been feeling generally well and was only scared because of the new low blood pressure. She also states that she has been noticing some more burning with urination and frequency, it had improved after her last discharge from the hospital while she was on antibiotics, however it recurred over the last week. She has not had a chance yet to follow-up with the urologist. In the ER she was found to have a hemoglobin 11.3 and a lactic acid of 2.2 and a new creatinine of 2.03 which is about double her baseline. Past Medical History Past Medical History (Chronic Problems): Chronic Problems GERD (gastroesophageal reflux disease) (Chronic) Chronic abdominal pain (Chronic) Allergies codeine Allergy (Verified 04/27/19 01:30) Nausea ANESTHETICS Allergy (Uncoded 04/13/19 11:22) Vomiting Home Medications: Ambulatory Orders Medication Instructions Recorded Pantoprazole Sodium [Protonix] 40 mg PO DAILY #30 tab 03/14/19 Dicyclomine HCl [Bentyl] 20 mg PO ACHS #112 cap 04/06/19 Lisinopril 40 mg PO DAILY #30 tab 04/06/19 Metoprolol Tartrate [Lopressor 12.5 mg PO BID #30 tab 04/06/19 (beta dread)] Ondansetron [Zofran Odt] 4 mg PO Q6H PRN PRN #112 tab 04/06/19 Docusate Sodium [Colace] 100 mg PO BID PRN PRN #20 cap 04/13/19 Surgical History: appendectomy, cholecystectomy, hysterectomy, tonsillectomy, - - Salpingoophorectomy Psychiatric History: 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 Smoking Status: Never smoker Alcohol: None Drugs: None - *Family History Maternal History Items: Heart Disease, Stroke Paternal History Items: Heart Disease Review of Systems Constitutional: Denies: Chills, Fever, Weight Change HEENT: Denies: Head Aches, Sinus Congestion, Sinus Drainage Cardiovascular: Denies: Chest Pain, Palpitations Respiratory: Denies: Cough, Shortness of breath at rest, Sputum production Gastrointestinal: Denies: Abdominal Pain, Nausea, Vomiting Genitourinary: Denies: Dysuria Musculoskeletal: Denies: Joint Pain, Joint Tenderness Skin: Denies: Rash, Wounds Neurological: Denies: Numbness, Tingling, Focal weakness Psychiatric: Denies: Anxiety, Depression Hematologic/ Lymphatic: Denies: Easy Bruising, Easy Bleeding VTE Information - Inpt Only VTE Present on Admission: No - Physical Exam Vitals/I&O's: Vital Signs Temp Pulse Resp BP Pulse Ox 97.7 F L 83 16 132/70 H 97 04/27/19 01:23 04/27/19 04:05 04/27/19 04:05 04/27/19 04:05 04/27/19 04:05 Oxygen Delivery Method Room Air Weight: 170 lb 12.573 oz Body Mass Index (BMI) 29.2 Finger Stick Blood Glucose 123 Intake and Output for Last 24 Hours 04/25/19 04/26/19 04/27/19 23:59 23:59 23:59 Intake Total 183.15 / 183.15 Balance 183.15 / 183.15 General: Alert, Oriented x3, Cooperative, No apparent distress HEENT: Atraumatic, PERRLA, EOMI, Normocephalic Oral: Moist Mucosa Neck: Supple, No JVD Lungs: Clear to auscultation, Normal air movement, No rhonchi, No wheeze, No rales Cardiovascular: Regular rate, Regular Rhythm, Normal S1, Normal S2, No murmurs Abdomen: Soft, Non Tender, Non-Distended, No Hepato-splenomegaly Extremities: No edema, Capillary Refill Less than 3 Seconds Skin: No rashes, No breakdown Neurological: Neuro grossly intact, Sensory exam intact to light touch and pain Psych/Mental Status: Normal Affect, Appropriate Laboratory Results 04/27/19 02:27: WBC 5.7, RBC 3.60 L, Hgb 11.3 L, Hct 34.6 L, MCV 96.1, MCH 31.4, MCHC 32.7, RDW Std Deviation 45.8 H, RDW Coeff of Ricky 13.0, Plt Count 162, MPV 10.5, Immature Gran % (Auto) 0.200, Neut % (Auto) 72.0 H, Lymph % (Auto) 16.2 L, [place] % (Auto) 7.7, Eos % (Auto) 3.0, Baso % (Auto) 0.9, Absolute Neuts (auto) 4.1, Absolute Lymphs (auto) 0.93, Nucleated RBC % 0 04/27/19 02:27: Sodium 142, Potassium 4.1, Chloride 107, Carbon Dioxide 26.0, Anion Gap 9, BUN 14, Creatinine 2.03 H, Estim Creat Clear Calc 20.68, Est GFR (MDRD) Af Amer 31 L, Est GFR (MDRD) Non-Af 25 L, BUN/Creatinine Ratio 6.9 L, Glucose 118 H, Calcium 9.9, Troponin I < 0.015 04/27/19 02:33: D-Dimer Quant (PE/DVT) 0.50 H 04/27/19 02:33: Lactic Acid 2.2 H* 04/27/19 02:40: Urine Color Yellow, Urine Clarity Turbid, Urine pH 6.0, Ur Specific [place] 1.015, Urine Protein 100 H, Urine Glucose (UA) Normal, Urine Ketones Negative, Urine Occult Blood 150 H, Urine Nitrite Positive H, Urine Bilirubin Negative, Urine Urobilinogen Normal, Ur Leukocyte Esterase 500 H, Urine RBC 0 SEEN, Urine WBC 50-100 SEEN, Ur Squamous Epith Cells 0 SEEN, Urine Bacteria 3+, Urine Mucus 0 SEEN Current Medications Cefepime HCl 1 gm/ Sodium (Chloride) 50 mls @ 100 mls/hr IV X1 ONE Stop: 04/27/19 04:44 Last Admin: 04/27/19 04:31 Dose: 100 mls/hr Documented by: Assessment/Plan All Active Problems Dizziness (Acute) Acute kidney injury (Acute) Cystitis (Acute) Vomiting (Acute) Near syncope (Acute) Dehydration (Acute) Urinary tract infection (Acute) 1. UTI with acute renal failure -On her previous cultures are start her on cefepime -Urine cultures are pending -Continue with IV fluids -She will need to follow-up with urology as an outpatient -Lactic acid of 2.2, she is not septic -She has had shortness of breath for years with ambulation, in the ER she had a d-dimer that was slightly elevated 12.5, the cutoff is 0.49 and given her age the 0.5 is likely normal, likelihood of PE is extremely low 2. HTN -She is to be on propranolol and was transitioned to metoprolol and lisinopril -Given her acute renal failure we will hold her lisinopril and add Norvasc 10 mg p.o. -Assuming that her renal function recovers she could likely start back on a lower dose of lisinopril, or may do better with Coreg instead of metoprolol and lisinopril 3. IBS/GERD -She can resume her home Bentyl -She has a history of a GI bleed as well, will continue with her PPI DVT: Heparin Code Visit Inpatient E&M: 81913 Init Hosp L2
[2019-04-27] MEDS: 0.9% Normal Saline 1,000 ML 100 ML IV ×2 (05:58→15:57)
[2019-04-27] MEDS: Heparin Injection (Vial) 5,000 UNIT/ML VIAL 5000 UNIT SC ×3 (05:59→21:26)
[2019-04-27] MEDS: Dicyclomine 10 MG Capsule PO ×4 (05:59→21:25)
[2019-04-27 06:34] LABS: Absolute Lymphocyte Count 1.19 X10^3/uL (0.83-4.51); Absolute Neutrophil Count 4.2 X10^3/uL (2.0-7.7); Basophil# 0.04 X10^3/uL; Basophil% 0.7 % (0-1); Eosinophil# 0.15 X10^3/uL; Eosinophils% 2.5 % (0-5); Hematocrit 30.7 % (37-47); Hemoglobin 10.3 g/dL (12.0-15.0); Lymphocyte # 1.19 X10^3/ul (4.0); Lymphocyte % 19.6 % (19-41); Mean Corp Hgb Conc 33.6 g/dL (32-36); Mean Corpuscular Hgb 31.8 pg (27.0-32.0); Mean Corpuscular Volume 94.8 fL (81-99); Mean Platelet Vol. 10.5 fl (6.2-12.0); Monocyte# 0.51 X10^3/uL; Monocyte% 8.4 % (0-10); NRBC Flagged by Analyzer 0 % (0-5); Neutrophil # 4.16 X10^3/uL (2.7-7.7); Neutrophil % 68.6 % (47-70); Platelet Count 204 K/mm3 (150-450); RBC Distribution Width CV 13.1 % (11.6-14.6); Red Blood Count 3.24 M/mm3 (4.2-5.4); White Blood Count 6.1 K/mm3 (4.4-11.0)
[2019-04-27 06:38] LABS: Reflex Lactate? Y
[2019-04-27 06:59] LABS: Anion Gap 6 (5-15); BUN 14 mg/dL (7-18); BUN/Creat Ratio 7.8 RATIO (10-20); Calcium,Total 8.6 mg/dL (8.5-10.1); Chloride 110 mmol/L (98-107); EST Glomerular Filtration Rate 29 mL/min (>60); Est Glom Filt Rate - Afr Amer 35 mL/min (>60); Estimated Creatinine Clearance 23.32 ml/min; Glucose 96 mg/dL (74-106); Potassium 4.1 mmol/L (3.5-5.1); Sodium Level 141 mmol/L (136-145)
[2019-04-27 07:03] LABS: Lactic Acid 1.1 mmol/L (0.4-1.9)
[2019-04-27] MEDS: Metoprolol Tartrate 25 MG Tablet 12.5 MG PO ×2 (10:34→21:25)
[2019-04-27] MEDS: amLODIPine 10 MG Tablet PO (10:34)
[2019-04-27] MEDS: Polyethylene Glycol 3350 17 GM PACKET PO (10:34)
[2019-04-27] MEDS: Pantoprazole Sodium 40 MG Tablet PO (10:34)
[2019-04-27] MEDS: Psyllium 1 PACKET PO (10:34)
--- NOTE | 2019-04-27 13:25 | CASEMGMT ---
RN CM Face to Face with patient for initial transition planning/care coordination assessment. RN CM introduced self and role at [facility]. Patient lying in bed, alert and oriented. Patient willing to participate in assessment and is able to answer all questions appropriately. Care providers, pharmacy, and demographics verified. Patient wishes to discharge home, denies need for home health at this time. Patient states she has no further needs or concerns at this time. CM to follow for discharge planning needs that may arise. PCP: Nani Specialists: Chance, Surgeon; Jalen nephrology Preferred Pharmacy: [facility] or [facility] Retail Insurance: Rem[employer] Prescription Benefit: yes Living Will/HPOA: none LNOK: Living Arrangements: Patient lives with in 2 story home. Patient independent at home. Transportation: self, DME/HHC: Patient has cane at home. Patient denies previous HHC. Disposition Plan: Patient to discharge home with family support and follow-up plans in place. Shanna KEY, RN, CM
[2019-04-28] VITALS (7 sets, daily range): BP systolic 124–155; BP diastolic 65–82; PULSE 75–87; RESP 16–18; TEMP 36.5–36.8; O2SAT 93–99
[2019-04-28] MEDS: 0.9% Normal Saline 1,000 ML 100 ML IV (02:43)
[2019-04-28] MEDS: Heparin Injection (Vial) 5,000 UNIT/ML VIAL 5000 UNIT SC ×3 (06:03→21:32)
[2019-04-28] MEDS: Dicyclomine 10 MG Capsule PO ×4 (06:03→21:21)
[2019-04-28 06:58] LABS: Anion Gap 6 (5-15); BUN 9 mg/dL (7-18); BUN/Creat Ratio 6.2 RATIO (10-20); Calcium,Total 8.5 mg/dL (8.5-10.1); Chloride 116 mmol/L (98-107); Creatinine, Serum 1.44 mg/dL (0.55-1.02); EST Glomerular Filtration Rate 38 mL/min (>60); Est Glom Filt Rate - Afr Amer 46 mL/min (>60); Estimated Creatinine Clearance 29.15 ml/min; Glucose 102 mg/dL (74-106); Potassium 3.9 mmol/L (3.5-5.1); Sodium Level 144 mmol/L (136-145)
[2019-04-28] MEDS: Metoprolol Tartrate 25 MG Tablet 12.5 MG PO ×2 (08:41→21:21)
[2019-04-28] MEDS: Psyllium 1 PACKET PO (08:42)
[2019-04-28] MEDS: Pantoprazole Sodium 40 MG Tablet PO (08:42)
[2019-04-28] MEDS: Polyethylene Glycol 3350 17 GM PACKET PO (08:42)
[2019-04-28] MEDS: amLODIPine 10 MG Tablet PO (08:43)
--- NOTE | 2019-04-28 12:02 | PCM.PROGNOTE ---
Patient Problems: Active and Suspected Problems Acute kidney injury superimposed on CKD (Acute) Acute cystitis (Acute) Subjective: Chief complaint: From after admission for acute cystitis and MONICA on CKD. Patient seen and examined. No acute events overnight. Today, she denies any complaints. No more dysuria or frequency. She denied fever or chills. Also, she is feeling better. Her vital signs are stable. - Physical Exam Vitals/I&O's: Vital Signs Temp Pulse Resp BP Pulse Ox 97.9 F 80 16 155/81 H 99 04/28/19 08:28 04/28/19 08:41 04/28/19 08:28 04/28/19 08:28 04/28/19 08:28 Oxygen Delivery Method Room Air Weight: 168 lb Body Mass Index (BMI) 28.8 Finger Stick Blood Glucose 123 Intake and Output for Last 24 Hours 04/26/19 04/27/19 04/28/19 23:59 23:59 23:59 Intake Total 3231.48 / 3631.48 1815 / 1815 Output Total 1250 / 1550 800 / 800 Balance 1981.48 / 2081.48 1015 / 1015 General: Alert, Oriented x3, Cooperative, No apparent distress HEENT: Atraumatic, PERRLA, EOMI, Normocephalic Oral: Moist Mucosa, No Gingival or Mucosal Lesions/ Ulcerations Neck: Supple, No JVD, Negative Carotid Bruits, Trachea Midline, Thyroid Normal Size and Texture Lungs: Clear to auscultation, Normal air movement, No rhonchi, No wheeze, No rales Cardiovascular: Regular rate, Regular Rhythm, Normal S1, Normal S2, PMI Normal Abdomen: Bowel Sounds Present, Soft, Non Tender, Non-Distended, No Hepato-splenomegaly Extremities: No clubbing, No cyanosis, No edema Skin: No rashes, No breakdown Lymphatic: No Cervical, Supraclavicular, or Inguinal Adenopathy Neurological: Cranial nerves II-XII grossly intact, Neuro grossly intact Psych/Mental Status: Normal Affect, Appropriate, Alert and oriented to time, place, person, mood and affect Microbiology Past 72 Hours 04/27/19 02:40 Urine, Clean Catch Urine Culture - 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 Laboratory Results 04/28/19 06:24: Sodium 144, Potassium 3.9, Chloride 116 H, Carbon Dioxide 22.0, Anion Gap 6, BUN 9, Creatinine 1.44 H, Estim Creat Clear Calc 29.15, Est GFR (MDRD) Af Amer 46 L, Est GFR (MDRD) Non-Af 38 L, BUN/Creatinine Ratio 6.2 L, Glucose 102, Calcium 8.5 Current Medications Amlodipine Besylate (Norvasc) 10 mg PO DAILY [facility] Last Admin: 04/28/19 08:43 Dose: 10 mg Documented by: Dicyclomine HCl (Bentyl) 10 mg PO ACHS [facility] Last Admin: 04/28/19 06:03 Dose: 10 mg Documented by: Docusate Sodium (Colace) 100 mg PO BID PRN PRN PRN Reason: Constipation Heparin Sodium (Porcine) (Heparin Na) 5,000 unit SC Q8 [facility] Last Admin: 04/28/19 06:03 Dose: 5,000 unit Documented by: Sodium Chloride () 250 mls @ 15 mls/hr IV .[id number] PRN PRN Reason: Saline Flush Sodium Chloride () 1,000 mls @ 75 mls/hr IV .[id number] [facility] Stop: 04/27/19 18:55 Last Infusion: 04/28/19 10:00 Dose: 100 mls/hr Documented by: Cefepime HCl 2 gm/ Sodium (Chloride) 100 mls @ 200 mls/hr IV Q12 [facility] Last Infusion: 04/28/19 10:00 Dose: Infused Documented by: Metoprolol Tartrate (Lopressor (Beta Ramila)) 12.5 mg PO BID [facility] Last Admin: 04/28/19 08:41 Dose: 12.5 mg Documented by: Ondansetron HCl (Zofran Odt) 4 mg PO Q6H PRN PRN PRN Reason: NAUSEA Pantoprazole Sodium (Protonix) 40 mg PO DAILY [facility] Last Admin: 04/28/19 08:42 Dose: 40 mg Documented by: Polyethylene Glycol (Miralax) 17 gm PO DAILY [facility] Last Admin: 04/28/19 08:42 Dose: 17 gm Documented by: Psyllium Hydrophilic Mucilloid (Metamucil) 1 packet PO DAILY [facility] Last Admin: 04/28/19 08:42 Dose: 1 packet Documented by: Sodium Chloride () 10 - 40 ml IV UD PRN PRN Reason: SALINE FLUSH Medical Necessity - Tobacco Use Smoking Status: Never smoker Assessment/Plan All Active Problems Acute kidney injury superimposed on CKD (Acute) Acute cystitis (Acute) This is a 73 years old female patient presented to the emergency room because of blood pressure check, had blood work done in the ED and she was found to have acute cystitis and acute kidney injury on top of stage III chronic kidney disease and she was admitted for treatment. #1 acute cystitis: She is on IV cefepime. She has been afebrile, no leukocytosis. Urine culture revealed gram-negative rods, final is pending. In the past, she had pseudomonas aeruginosa and Klebsiella pneumoniae in the urine culture. Plan to continue IV cefepime, anticipate discharge home tomorrow after final urine culture. #2 acute kidney injury on top of stage III chronic kidney disease: Likely because of dehydration and lisinopril. Her creatinine has been around 1.3-1.5 in the last couple of months, it was 2.03 on admission. Lisinopril discontinued. She has been on IV fluids and creatinine came down to 1.44 today, improving. Plan to continue IV fluids, repeat BMP tomorrow morning. #3 hypertension: Blood pressure under fair control, continue Norvasc and metoprolol, lisinopril discontinued. #4 GERD: Stable, continue Protonix. #5 irritable bowel syndrome: Stable, continue Bentyl and Metamucil. #6 stage III chronic kidney disease: Plan as above. #7 DVT prophylaxis: Subcu heparin. This note was generated with [employer] dictation software. It may contain incorrect words, spelling, and punctuation that were not noted in checking the note before signing. Code Visit Inpatient E&M: 68695 Subs Hosp L2
--- NOTE | 2019-04-28 12:40 | NURSING ---
last blood glucose that was done was 57, lab was called for back, and they have not been able to draw blood yet. Pt is alert and talking, nurse attempted to get blood glucose x2 again , was unable to get blood glucose. Another lab person is in room now, and assessing veins.
[2019-04-28] MEDS: 0.9% Saline Lock 10 ML Syringe IV ×2 (13:20→21:26)
[2019-04-29 02:59] VITALS: BP 138/72; PULSE 74; RESP 16; TEMP 36.9; O2SAT 98
[2019-04-29] MEDS: Heparin Injection (Vial) 5,000 UNIT/ML VIAL 5000 UNIT SC (06:20)
[2019-04-29] MEDS: Dicyclomine 10 MG Capsule PO (06:21)
[2019-04-29 06:58] LABS: Anion Gap 6 (5-15); BUN 9 mg/dL (7-18); BUN/Creat Ratio 6.9 RATIO (10-20); Calcium,Total 8.4 mg/dL (8.5-10.1); Chloride 111 mmol/L (98-107); EST Glomerular Filtration Rate 42 mL/min (>60); Est Glom Filt Rate - Afr Amer 51 mL/min (>60); Estimated Creatinine Clearance 32.29 ml/min; Glucose 97 mg/dL (74-106); Potassium 3.8 mmol/L (3.5-5.1); Sodium Level 141 mmol/L (136-145)
[2019-04-29 07:46] VITALS: BP 147/83; PULSE 74; RESP 16; TEMP 36.8; O2SAT 99
--- NOTE | 2019-04-29 09:10 | PCM.DC ---
- Discharge Diagnoses Current Active Problems: Current Active and Chronic Problems Acute kidney injury superimposed on CKD (Acute) Acute cystitis (Acute) Stage III chronic kidney disease (Chronic) Irritable bowel syndrome (Chronic) Hypertension (Chronic) You will use the following diet at home:: Cardiac Your food should be the consistency of: Regular Discharge Activity: Return to Normal Activity Weight Bearing Status: Weight bearing as tolerated Call your doctor if you observe: Fever of 101 or Higher, Shortness of breath, Dizziness, Fainting spells, Chest pain, Increased palpitations (irregular heartbeat), Uncontrolled pain Instructions: Understanding Urinary Tract Infections (UTIs), Controlling High Blood Pressure, Taking Your Blood Pressure Allergies/Adverse Reactions: Allergies codeine Allergy (Verified 04/27/19 01:30) Nausea ANESTHETICS Allergy (Uncoded 04/13/19 11:22) Vomiting Medications to take at Discharge Dicyclomine HCl [Bentyl] 20 mg PO ACHS #112 cap 04/06/19 Metoprolol Tartrate [Lopressor (beta dread)] 12.5 mg PO BID #30 tab 04/06/19 Ondansetron [Zofran Odt] 4 mg PO Q6H PRN PRN #112 tab 04/06/19 Docusate Sodium [Colace] 100 mg PO BID PRN PRN #20 cap 04/13/19 Lansoprazole [Prevacid] 30 mg PO DAILY 04/27/19 Polyethylene Glycol 3350 [Miralax] 17 g PO DAILY 04/27/19 Psyllium [Metamucil] 1 packet PO DAILY 04/27/19 Amlodipine [Norvasc] 10 mg PO DAILY #30 tab 04/29/19 Ciprofloxacin [Cipro] 500 mg PO BID #10 tab 04/29/19 The following prescriptions were given: Ciprofloxacin [Cipro] 500 mg PO BID #10 tab Transmission Status: Pending to [facility] Amlodipine [Norvasc] 10 mg PO DAILY #30 tab Transmission Status: Pending to [facility] Primary Care Physician: Nohemi Cardoza MD [Primary Care Provider] - Please follow up with your Primary Care Physician in: 1 WEEK. Test Results: Test results from this visit will be discussed in further detail at your follow-up appointment, if applicable.
[2019-04-29 10:10] VITALS: BP 143/82; PULSE 82; RESP 12; TEMP 37.1; O2SAT 100
[2019-04-29 10:16] VITALS: PULSE 84
[2019-04-29] MEDS: amLODIPine 10 MG Tablet PO (10:16)
[2019-04-29] MEDS: Metoprolol Tartrate 25 MG Tablet 12.5 MG PO (10:16)
[2019-04-29] MEDS: Pantoprazole Sodium 40 MG Tablet PO (10:18)
[2019-04-29] MEDS: Polyethylene Glycol 3350 17 GM PACKET PO (10:18)
[2019-04-29] MEDS: Psyllium 1 PACKET PO (10:18)
--- NOTE | 2019-04-29 12:13 | PCM.DC.SUM ---
Discharge Date and Diagnosis - Problem List Patient Problems: Active and Suspected Problems Acute kidney injury superimposed on CKD (Acute) Acute cystitis (Acute) Date of Admission: 04/27/19 Date of Discharge: 04/29/19 - Primary Discharge Diagnosis Active and Suspected Problems #1 Klebsiella pneumoniae acute cystitis. #2 acute kidney injury on top of stage III chronic kidney disease. - Secondary Discharge Diagnosis Chronic Problems Stage III chronic kidney disease (Chronic) Irritable bowel syndrome (Chronic) Hypertension (Chronic) GERD (gastroesophageal reflux disease) (Chronic) Chronic abdominal pain (Chronic) Hospital Course and Treatment Imaging Results: Clinical Impression(s) from Imaging Studies Chest X-Ray 04/27/19 02:00 IMPRESSION: No acute cardiopulmonary disease. Electronically Signed: Alex Alas MD at 2:43 EST , Service support , Operations: None Procedures: None Summary of Care Provided: Patient seen and examined on the day of discharge and appeared to be stable to be discharged home. Denies any complaints. Her vital signs are stable. The patient is a 73 year old F patient presented to the emergency room for blood pressure check, had blood work done as well as urinalysis and she was found to have acute cystitis and acute kidney injury on top of stage III chronic kidney disease. Urinalysis revealed cloudy turbid urine, positive for nitrite and leukocyte esterase, there was 50-100 WBCs and 3+ bacteria. Patient had no fever and there was no leukocytosis. Her lactic acid was 2.2 on admission but there was no evidence of sepsis or severe sepsis. Patient was treated with IV fluids and IV antibiotics. Her lactic acid came down to normal and she remained afebrile throughout admission. She had no leukocytosis. Urine culture revealed Klebsiella pneumoniae which was pansensitive. Patient had a history of recurrent UTIs in the past. Also, she was found to have worsening kidney function consistent with acute kidney injury on top of stage III chronic kidney disease. On admission, her creatinine was 2.03 and her baseline creatinine has been around 1.3 to 1.5 mg/dL. This was attributed to dehydration and side effects of lisinopril. She was treated with IV fluids and her kidney function improved and his creatinine came down to 1.30 upon discharge. She was started on Norvasc instead of lisinopril for hypertension. Blood pressure was under fair control. Patient discharged home in a stable medical condition, discharged on ciprofloxacin 500 mg p.o. twice daily for 5 days as she received 3 days of IV antibiotics in the hospital with IV cefepime, started on Norvasc 10 mg p.o. daily, lisinopril discontinued, maintained on her other previous home medications, recommended from PCP in 1 week. Patient Problems: Active and Suspected Problems Acute kidney injury superimposed on CKD (Acute) Acute cystitis (Acute) - Physical Exam Vitals/I&O's: Vital Signs Temp Pulse Resp BP Pulse Ox 98.7 F 84 12 143/82 H 100 04/29/19 10:10 04/29/19 10:16 04/29/19 10:10 04/29/19 10:10 04/29/19 10:10 Oxygen Delivery Method Room Air Weight: 168 lb Body Mass Index (BMI) 28.8 Finger Stick Blood Glucose 123 Intake and Output for Last 24 Hours 04/27/19 04/28/19 04/29/19 23:59 23:59 23:59 Intake Total 3231.48 / 3631.48 3798.33 / 3798.33 300 / 300 Output Total 1250 / 1550 2500 / 2500 1000 / 1000 Balance 1981.48 / 2081.48 1298.33 / 1298.33 -700 / -700 General: Alert, Oriented x3, Cooperative, No apparent distress HEENT: Atraumatic, PERRLA, EOMI Oral: Moist Mucosa, No Gingival or Mucosal Lesions/ Ulcerations Neck: Supple, No JVD, Negative Carotid Bruits, Trachea Midline, Thyroid Normal Size and Texture Lungs: Clear to auscultation, Normal air movement, No rhonchi, No wheeze, No rales Cardiovascular: Regular rate, Regular Rhythm, Normal S1, Normal S2, PMI Normal Abdomen: Bowel Sounds Present, Soft, Non Tender, Non-Distended, No Hepato-splenomegaly Extremities: No clubbing, No cyanosis, No edema Skin: No rashes, No breakdown Lymphatic: No Cervical, Supraclavicular, or Inguinal Adenopathy Neurological: Cranial nerves II-XII grossly intact, Neuro grossly intact Psych/Mental Status: Normal Affect, Appropriate Microbiology Past 72 Hours 04/27/19 02:40 Urine, Clean Catch Urine Culture - Final Klebsiella pneumoniae sp pneum Laboratory Results 04/29/19 06:20: Sodium 141, Potassium 3.8, Chloride 111 H, Carbon Dioxide 24.0, Anion Gap 6, BUN 9, Creatinine 1.30 H, Estim Creat Clear Calc 32.29, Est GFR (MDRD) Af Amer 51 L, Est GFR (MDRD) Non-Af 42 L, BUN/Creatinine Ratio 6.9 L, Glucose 97, Calcium 8.4 L Current Medications Amlodipine Besylate (Norvasc) 10 mg PO DAILY [facility] Last Admin: 04/29/19 10:16 Dose: 10 mg Documented by: Dicyclomine HCl (Bentyl) 10 mg PO ACHS [facility] Last Admin: 04/29/19 06:21 Dose: 10 mg Documented by: Docusate Sodium (Colace) 100 mg PO BID PRN PRN PRN Reason: Constipation Heparin Sodium (Porcine) (Heparin Na) 5,000 unit SC Q8 [facility] Last Admin: 04/29/19 06:20 Dose: 5,000 unit Documented by: Sodium Chloride () 250 mls @ 15 mls/hr IV .[id number] PRN PRN Reason: Saline Flush Cefepime HCl 2 gm/ Sodium (Chloride) 100 mls @ 200 mls/hr IV Q12 [facility] Last Infusion: 04/28/19 21:56 Dose: Infused Documented by: Metoprolol Tartrate (Lopressor (Beta Ramila)) 12.5 mg PO BID [facility] Last Admin: 04/29/19 10:16 Dose: 12.5 mg Documented by: Ondansetron HCl (Zofran Odt) 4 mg PO Q6H PRN PRN PRN Reason: NAUSEA Pantoprazole Sodium (Protonix) 40 mg PO DAILY [facility] Last Admin: 04/29/19 10:18 Dose: 40 mg Documented by: Polyethylene Glycol (Miralax) 17 gm PO DAILY [facility] Last Admin: 04/29/19 10:18 Dose: 17 gm Documented by: Psyllium Hydrophilic Mucilloid (Metamucil) 1 packet PO DAILY [facility] Last Admin: 04/29/19 10:18 Dose: 1 packet Documented by: Sodium Chloride () 10 - 40 ml IV UD PRN PRN Reason: SALINE FLUSH Last Admin: 04/28/19 21:26 Dose: 10 ml Documented by: Discharge Activity: Return to Normal Activity Weight Bearing Status: Weight bearing as tolerated Call your doctor if you observe: Fever of 101 or Higher, Shortness of breath, Dizziness, Fainting spells, Chest pain, Increased palpitations (irregular heartbeat), Uncontrolled pain Home Medications: Medications to take at Discharge Dicyclomine HCl [Bentyl] 20 mg PO ACHS #112 cap 04/06/19 Metoprolol Tartrate [Lopressor (beta ramila)] 12.5 mg PO BID #30 tab 04/06/19 Ondansetron [Zofran Odt] 4 mg PO Q6H PRN PRN #112 tab 04/06/19 Docusate Sodium [Colace] 100 mg PO BID PRN PRN #20 cap 04/13/19 Lansoprazole [Prevacid] 30 mg PO DAILY 04/27/19 Polyethylene Glycol 3350 [Miralax] 17 g PO DAILY 04/27/19 Psyllium [Metamucil] 1 packet PO DAILY 04/27/19 Amlodipine [Norvasc] 10 mg PO DAILY #30 tab 04/29/19 Ciprofloxacin [Cipro] 500 mg PO BID #10 tab 04/29/19 Following Prescrptions Were Given to Patient: Ciprofloxacin [Cipro] 500 mg PO BID #10 tab Transmission Status: Received by NAYA MCCORMACK RD Amlodipine [Norvasc] 10 mg PO DAILY #30 tab Transmission Status: Received by NAYA MCCORMACK RD Primary Care Physician: Nohemi Cardoza MD [Primary Care Provider] - Please follow up with your Primary Care Physician in: 1 WEEK. Patient Instructions: Controlling High Blood Pressure, Understanding Urinary Tract Infections (UTIs), Taking Your Blood Pressure Disposition: Home Minutes spent on discharge:: 26 Patient Condition:: Stable Medical Necessity - Tobacco Use Smoking Status: Never smoker Meaningful Use Info Meaningful Use Diagnoses (Choose all that apply): None applicable Code Visit Inpatient E&M: 21635 Disch Hosp
--- NOTE | 2019-04-30 15:38 | CASEMGMT ---
DAXA CM DC PHONE CALL DC DATE: 04.29.19 DC Disposition: Home Diagnosis on Discharge: MONICA LACE/STRATA: 01/20 Attempted call to phone. No answer and no message machine with name identifier. Brielle ORON RN ACM
== END 2019-04-29 10:52 | disposition home or self-care (01) | DRG 683 ==
LOC: ED 03:05 → MS3 04:50
PROVIDERS: Admitting Provider Family Medicine; Emergency Provider Emergency Medicine; Family Provider Internal Medicine; PCP Internal Medicine; Visit Provider Hospitalist
DX: N17.9 Acute kidney failure, unspecified (principal); N30.00 Acute cystitis without hematuria; B96.1 Klebsiella pneumoniae [K. pneumoniae] as the cause of diseases classified elsewhere; N18.3 Chronic kidney disease, stage 3 (moderate); K58.9 Irritable bowel syndrome, unspecified; I10 Essential (primary) hypertension; K21.9 Gastro-esophageal reflux disease without esophagitis; G89.29 Other chronic pain; R10.9 Unspecified abdominal pain; E86.0 Dehydration; T46.4X5A Adverse effect of angiotensin-converting-enzyme inhibitors, initial encounter; Z87.440 Personal history of urinary (tract) infections; I12.9 Hypertensive chronic kidney disease with stage 1 through stage 4 chronic kidney disease, or unspecified chronic kidney disease
CPT/HCPCS: 36415; 71045; 80048; 81001; 83605; 84484; 85025; 85379; 87077; 87086; 87088; 87186; 93005; 97802; 99284; J7030; A4216

== ENCOUNTER 2020-07-26 18:21 | Emergency (ER) | payer MEDICARE, SELFPAY ==
[2019-04-27 05:06] VITALS: BMI 28.8
[2020-07-26 18:22] VITALS: BP 217/117; PULSE 86; PULSE 88; RESP 16; TEMP 36.4; O2SAT 97; BMI 30.3
[2020-07-26 18:31] VITALS: BP 232/107; PULSE 74; RESP 17; O2SAT 100
--- NOTE | 2020-07-26 19:25 | CT_ITS ---
STUDY: CT BRAIN WITHOUT CONTRAST REASON FOR EXAM: Female, 75 years old. off balance for 2 months RADIATION DOSAGE (If Supplied By Facility): CTDIvol = ( 44.99 ) mGy, DLP = ( 846.73 ) mGycm TECHNIQUE: Transaxial CT imaging of the brain was performed without administration of intravenous contrast material. Individualized dose optimization techniques were used for this CT. COMPARISON: 03/10/2019. FINDINGS: Normal soft tissue structures. Normal calvarium. Mild atrophy and moderate periventricular white matter ischemic changes. Hypoattenuated density in the left external capsule which may be on the basis of old lacunar infarct Normal basal ganglia and thalami. Normal brainstem. Normal cerebellum. Empty sella deformity of uncertain clinical significance There is no intracranial hemorrhage. There are no findings of an acute ischemic infarction. Small polyp or mucous retention cyst in right maxillary sinus. CT/Brain/Head without Contrast IMPRESSION: Moderate periventricular white matter ischemic changes. No evidence for acute bleed. If concern for acute infarct MRI recommended Electronically Signed: Nixon Santana MD at 21:48 EST , Service support ,
--- NOTE | 2020-07-26 19:26 | EKG12_ITS ---
Test Reason : NUMBNESS Blood Pressure : / mmHG Vent. Rate : 076 BPM Atrial Rate : 076 BPM P-R Int : 152 ms QRS Dur : 076 ms QT Int : 398 ms P-R-T Axes : 064 012 019 degrees QTc Int : 447 ms Normal sinus rhythm Nonspecific ST abnormality Abnormal ECG Confirmed by SIMEON SUNG, LISA ([id number]), image editor PRASANNA SINGLETON ([id number]) on 08/01/2020 10:16:54 A M Referred By: LUKE Confirmed By:MO HENDRIX MD
--- NOTE | 2020-07-26 19:28 | ED.VISSUMM ---
- ER Visit Summary Date of Service: 07/26/20 Chief Complaint: Complaining of being off balance for 2 months History of Present Illness: The patient is a [address] renal insufficiency, hypertension, reflux and polio as a child. Patient states for last 2 months she has become increasingly more off balance. Denies any numbness or weakness to her upper extremities. At times both lower extremities feel weak. She denies any falls. She has had some headaches. States that her handwriting is also progressively gotten worse and she is right-hand dominant. She denies any nausea, vomiting, diarrhea or fever. No dysuria. No chest pain, abdominal pain or cough. No shortness of breath. Physical Examination: Female accompanied by significant other. Vital signs are stable afebrile. Initial blood pressure is elevated 217/117. HEENT exam unremarkable. Normal speech. No facial droop. Pupils round reactive light extra motions are intact. Neck nontender. Lungs with auscultation bilaterally. Heart regular rhythm rate about 85 no murmur. Abdomen soft nontender normal bowel sounds no peritoneal signs. Patient moving all 4 extremities. Calves are nontender without edema or cords. She has equal and symmetrical motor strength of both hands and feet. Neurologically she is awake alert with no focal motor or sensory deficits. Fingertip to nose within normal limits bilaterally. She can lift both legs without any abnormality. NIH is 0. Test Results: CBC normal white count of 7 hemoglobin 14. Chemistries unremarkable except potassium of 3.2. Normal gap of 8. Creatinine of 2.0 but she has a known history of renal insufficiency stage III and has had creatinines at 2 before. EKG normal sinus rhythm rate of 76 no acute signs of CA or ischemia. CT of the brain is read by the radiologist showed no acute abnormality. No bleed, mass or stroke. I reviewed the film also. Multiple repeat exams the patient is doing well. She was given Lopressor for her blood pressure. She ambulated up and down the hallway without any difficulty per nursing staff. She and family are comfortable with her being discharged to home. Emergency Department Course and Treatment: Older female with progressively worsening balance over 2 months and headaches. CAT scan labs are being obtained. She will be ambulated by nursing and assess. Treatment Plan: Continue on her blood pressure medication. Log her blood pressures and follow-up with her primary care physician to see if they need to adjust her medication. Follow-up with further evaluation. Disposition: discharge Impression: Off-balance and generalized weakness of uncertain etiology Acute on chronic hypertension This note was generated with [employer] dictation software. It may contain incorrect words, spelling, and punctuation that were not noted in review of the chart prior to signing ED Disposition - Plan for ED Patient: Referrals: Nohemi Cardoza MD [Primary Care Provider] -
[2020-07-26 20:37] LABS: Absolute Lymphocyte Count 1.03 X10^3/uL (0.83-4.51); Absolute Neutrophil Count 6.1 X10^3/uL (2.0-7.7); Basophil# 0.04 X10^3/uL; Basophil% 0.5 % (0-1); Eosinophil# 0.07 X10^3/uL; Eosinophils% 0.9 % (0-5); Hematocrit 39.1 % (37-47); Lymphocyte # 1.03 X10^3/ul (4.0); Lymphocyte % 13.2 % (19-41); Mean Corp Hgb Conc 35.8 g/dL (32-36); Mean Corpuscular Hgb 30.4 pg (27.0-32.0); Mean Corpuscular Volume 84.8 fL (81-99); Mean Platelet Vol. 10.1 fl (6.2-12.0); Monocyte# 0.57 X10^3/uL; Monocyte% 7.3 % (0-10); NRBC Flagged by Analyzer 0 % (0-5); Neutrophil % 77.8 % (47-70); Platelet Count 188 K/mm3 (150-450); RBC Distribution Width CV 13.9 % (11.6-14.6); RBC Distribution Width SD 42.4 fl (35.1-43.9); Red Blood Count 4.61 M/mm3 (4.2-5.4); White Blood Count 7.8 K/mm3 (4.4-11.0)
[2020-07-26] MEDS: Metoprolol Tartrate 5 MG/5 ML Vial IV ×3 (20:38→21:13)
[2020-07-26 20:57] VITALS: BP 253/108; PULSE 68; RESP 19; O2SAT 95
[2020-07-26 20:58] LABS: Anion Gap 8 (5-15); BUN 22 mg/dL (7-18); BUN/Creat Ratio 10.8 RATIO (10-20); Calcium,Total 9.1 mg/dL (8.5-10.1); Chloride 101 mmol/L (98-107); Creatinine, Serum 2.03 mg/dL (0.55-1.02); EST Glomerular Filtration Rate 25 mL/min (>60); Est Glom Filt Rate - Afr Amer 31 mL/min (>60); Estimated Creatinine Clearance 20.04 ml/min; Glucose 106 mg/dL (74-106); Potassium 3.2 mmol/L (3.5-5.1); Sodium Level 138 mmol/L (136-145)
[2020-07-26 21:00] VITALS: BP 241/107; PULSE 62; RESP 18; O2SAT 97
--- NOTE | 2020-07-26 21:58 | ED.DEP ---
ED Disposition - Plan for ED Patient: Disposition: Home or Assisted Living Referrals: Nohemi Cardoza MD [Primary Care Provider] - 3-5 Days Additional Instructions: Follow-up with your primary care physician. Continue your blood pressure medications. Record your blood pressure readings twice a day in the morning and evening and when you follow-up with your doctor show them your blood pressure readings to decide if they need to alter or change her blood pressure medication.
[2020-07-26 22:10] VITALS: BP 170/100
[2020-07-26 22:25] VITALS: PULSE 68; RESP 16; O2SAT 97
== END 2020-07-26 22:25 | disposition home or self-care (01) ==
PROVIDERS: Emergency Provider Emergency Medicine; PCP Internal Medicine
DX: R27.0 Ataxia, unspecified (principal); R53.1 Weakness; R51.9 Headache, unspecified; I12.9 Hypertensive chronic kidney disease with stage 1 through stage 4 chronic kidney disease, or unspecified chronic kidney disease; N18.30 Chronic kidney disease, stage 3 unspecified; K21.9 Gastro-esophageal reflux disease without esophagitis; Z79.899 Other long term (current) drug therapy; Z86.12 Personal history of poliomyelitis
CPT/HCPCS: 70450; 80048; 85025; 93005; 96374; 99285; A4216

== ENCOUNTER 2020-07-31 10:20 | Inpatient (IN) | payer MEDICARE, SELFPAY ==
[2020-07-31] VITALS (17 sets, daily range): BP systolic 169–208; BP diastolic 81–105; PULSE 69–94; RESP 16–18; TEMP 36.1–37.1; O2SAT 94–98; BMI 29.9
--- NOTE | 2020-07-31 10:41 | EKG12_ITS ---
Test Reason : NECK PAIN Blood Pressure : / mmHG Vent. Rate : 071 BPM Atrial Rate : 071 BPM P-R Int : 142 ms QRS Dur : 080 ms QT Int : 402 ms P-R-T Axes : 072 005 050 degrees QTc Int : 436 ms Normal sinus rhythm Nonspecific ST and T wave abnormality Abnormal ECG Confirmed by MOMO SUNG, SANDRA ([id number]), editor & co founder PRASANNA SINGLETON ([id number]) on 08/03/2020 9:45:36 AM Referred By: RU Confirmed By:SANDRA BARR MD
--- NOTE | 2020-07-31 10:42 | ED.VISSUMM ---
- ER Visit Summary Date of Service: 07/31/20 Chief Complaint: [Neck pain] History of Present Illness: The patient is a 75 F [presents to the emergency department planing of pain in her neck since last evening around 11 PM. Patient states the pain starts in the left side of the base of her neck and radiates up the neck into her jaw and anterior to the ear into her head. Patient states that she took a Fioricet last night and it seemed to dull the pain. She had the pain throughout the night and had it again this morning when she woke up. Currently she denies having the pain. Patient states she has had similar pains in the past off and on and it can be bilateral. Patient was seen in the emergency department 5 days ago for some generalized weakness and had a work-up including a head CT and lab work which essentially were unremarkable. Patient also was noted to be hypertensive at that time. Patient does have history of chronic hypertension. Patient denies any head or neck injury.] Physical Examination: [HEENT-PERRLA, EOMI. Cranial nerves II through XII grossly intact. TMs clear. Mucous membranes moist. No adenopathy. No C-spine tenderness on palpation. No bruits auscultated. Asses palpated in the neck. Cardiovascular-regular rate and rhythm without murmur or ectopy Lungs-clear to auscultation, chest wall stable without crepitus or subcu emphysema Abdomen-normoactive bowel sounds, soft, nontender, no rebound or rigidity, no peritoneal signs. Extremities-intact ?4, normal range of motion, normal pulses, atraumatic] Test Results: [EKG obtained on arrival shows sinus rhythm with a ventricular rate of [address] changes noted. CBC with differential obtained showed white count 9.1, hemoglobin 14.9, hematocrit 41, plates 198. Chemistries showed a sodium 135, potassium 2.8, chloride 98, CO2 30, glucose 118, BUN 27 and creatinine 2.04. Troponin was 0.020.] Emergency Department Course and Treatment: [Line established on arrival. Patient received 40 mEq of potassium chloride p.o.] Treatment Plan: [Plan will be to admit patient for imaging of her neck. Currently she is not having any neck pain but given her description of weakness in both legs over the last month and pain in her neck feel patient needs further imaging such as MRA of head and neck as well as MRI of neck.] Disposition: [Admit] Impression: [Weakness Hypokalemia Neck pain] This note was generated with [employer] dictation software. It may contain incorrect words, spelling, and punctuation that were not noted in review of the chart prior to signing ED Disposition - Plan for ED Patient: Referrals: Nohemi Cardoza MD [Primary Care Provider] -
[2020-07-31 11:01] LABS: Absolute Lymphocyte Count 0.89 X10^3/uL (0.83-4.51); Absolute Neutrophil Count 7.1 X10^3/uL (2.0-7.7); Basophil# 0.05 X10^3/uL; Basophil% 0.6 % (0-1); Eosinophil# 0.11 X10^3/uL; Eosinophils% 1.2 % (0-5); Hematocrit 41.3 % (37-47); Hemoglobin 14.9 g/dL (12.0-15.0); Lymphocyte # 0.89 X10^3/ul (4.0); Lymphocyte % 9.8 % (19-41); Mean Corp Hgb Conc 36.1 g/dL (32-36); Mean Corpuscular Hgb 30.7 pg (27.0-32.0); Mean Platelet Vol. 10.3 fl (6.2-12.0); Monocyte% 9.9 % (0-10); NRBC Flagged by Analyzer 0 % (0-5); Neutrophil # 7.08 X10^3/uL (2.7-7.7); Neutrophil % 78.2 % (47-70); Platelet Count 198 K/mm3 (150-450); RBC Distribution Width CV 13.9 % (11.6-14.6); RBC Distribution Width SD 42.6 fl (35.1-43.9); Red Blood Count 4.86 M/mm3 (4.2-5.4); White Blood Count 9.1 K/mm3 (4.4-11.0)
[2020-07-31 11:16] LABS: Anion Gap 7 (5-15); BUN 27 mg/dL (7-18); BUN/Creat Ratio 13.2 RATIO (10-20); Calcium,Total 9.1 mg/dL (8.5-10.1); Chloride 98 mmol/L (98-107); Creatinine, Serum 2.04 mg/dL (0.55-1.02); EST Glomerular Filtration Rate 25 mL/min (>60); Est Glom Filt Rate - Afr Amer 30 mL/min (>60); Estimated Creatinine Clearance 19.94 ml/min; Glucose 118 mg/dL (74-106); Potassium 2.8 mmol/L (3.5-5.1); Sodium Level 135 mmol/L (136-145)
[2020-07-31] MEDS: 0.9% Normal Saline 1,000 ML 150 ML IV (11:23)
--- NOTE | 2020-07-31 11:57 | NURSING ---
DR SYL WILLAMS
--- NOTE | 2020-07-31 12:09 | PCM.HP.STD ---
Problem List (1) Neck pain Status: Acute (2) Bilateral leg weakness Status: Acute (3) Acute kidney injury superimposed on CKD Status: Acute (4) Chronic abdominal pain Status: Chronic (5) GERD (gastroesophageal reflux disease) Status: Chronic (6) Hypertension Status: Chronic (7) Irritable bowel syndrome Status: Chronic (8) Stage III chronic kidney disease Status: Chronic History of Present Illness Date of Admission: 07/31/20 Chief Complaint: Neck pain The patient is a 75 year old F past medical history significant for essential hypertension who presents with neck pain. Patient states pain has been going on for couple of days. He had actually been seen in the ED 5 days prior to her current admission with strokelike symptoms. Underwent evaluation including CT of the head which was negative for acute stroke. Patient was then found to have markedly elevated blood pressure with systolic of 241 and diastolic of 107. Her home meds adjusted at discharge. Patient presented back to the ED with persistent left sided neck pain. She also did complain of numbness and bilateral lower extremity weakness. Patient was found to have worsening kidney function with hypokalemia subsequently admitted to a monitored bed for further management. Past Medical History Past Medical History (Chronic Problems): Chronic Problems Stage III chronic kidney disease (Chronic) Irritable bowel syndrome (Chronic) Hypertension (Chronic) GERD (gastroesophageal reflux disease) (Chronic) Chronic abdominal pain (Chronic) Allergies codeine Allergy (Verified 07/31/20 10:28) Nausea NARCOTICS Adverse Reaction (Uncoded 07/31/20 10:28) Upset Stomach Home Medications: Ambulatory Orders Medication Instructions Recorded Dicyclomine HCl [Bentyl] 20 mg PO ACHS #112 cap 04/06/19 Metoprolol Tartrate [Lopressor 12.5 mg PO BID #30 tab 04/06/19 (beta dread)] Ondansetron [Zofran Odt] 4 mg PO Q6H PRN PRN #112 tab 04/06/19 Docusate Sodium [Colace] 100 mg PO BID PRN PRN #20 cap 04/13/19 Lansoprazole [Prevacid] 30 mg PO DAILY 04/27/19 Polyethylene Glycol 3350 [Miralax] 17 g PO DAILY 04/27/19 Psyllium [Metamucil] 1 packet PO DAILY 04/27/19 Amlodipine [Norvasc] 2.5 mg PO BID 07/26/20 Surgical History: appendectomy, cholecystectomy, hysterectomy, tonsillectomy, - - Salpingoophorectomy Psychiatric History: No pertinent psych hx [employer] E[employer] APPRENTICE History: No pertinent STE[employer] E[employer]OR APPRENTICE history Smoking Status: Never smoker - *Family History Maternal History Items: Heart Disease, Stroke Paternal History Items: Heart Disease Review of Systems Constitutional: Denies: Anorexia, Chills, Fever, Night Sweats, Weight Change HEENT: Denies: Head Aches, Sinus Congestion, Sinus Drainage Cardiovascular: Denies: Chest Pain, Orthopnea, Palpitations, Paroxysmal Noc. Dyspnea Respiratory: Denies: Cough, Shortness of breath at rest, Shortness of breath upon exertion, Sputum production Gastrointestinal: Denies: Abdominal Pain, Hematemesis, Hematochezia, Nausea, Melena, Vomiting Genitourinary: Denies: Dysuria, Frequency, Hematuria, Urgency Musculoskeletal: Reports: Neck Pain. Denies: Joint Pain, Joint Tenderness Skin: Denies: Rash Neurological: Reports: Focal weakness. Denies: Numbness, Tingling Psychiatric: Denies: Homicidal Ideations, Suicidal Ideations Hematologic/ Lymphatic: Denies: Easy Bruising, Easy Bleeding VTE Information - Inpt Only VTE Present on Admission: No VTE Mechan Device Prophylaxis: None VTE Pharm Prophylaxis ordered?: Yes Patient Problems: Active and Suspected Problems Neck pain (Acute) Bilateral leg weakness (Acute) Acute kidney injury superimposed on CKD (Acute) Objective: GENERAL: cooperative HEENT: Atraumatic; EYES; Anicteric, Normal Conjunctiva NECK; supple, normal thyroid, RESPIRATORY: Diminished to auscultation CARDIOVASCULAR: Regular S1 S2, GI: soft, normoactive bowel sounds, : No Renal angle tenderness; EXTREMITIES: No edema, no clubbing, MUSCULOSKELETAL: no muscle waisting NEURO: Awake; no lateralizing signs. SKIN: No Rash PSYCH; Flat affect - Physical Exam Vitals/I&O's: Vital Signs Temp Pulse Resp BP Pulse Ox 97.0 F L 74 16 184/99 H 97 07/31/20 10:21 07/31/20 10:21 07/31/20 10:21 07/31/20 10:21 07/31/20 10:21 Oxygen Delivery Method Room Air Weight: 79.379 kg Body Mass Index (BMI) 30.0 Finger Stick Blood Glucose 123 Laboratory Results 07/31/20 10:33: WBC 9.1, RBC 4.86, Hgb 14.9, Hct 41.3, MCV 85.0, MCH 30.7, MCHC 36.1 H, RDW Std Deviation 42.6, RDW Coeff of Ricky 13.9, Plt Count 198, MPV 10.3, Immature Gran % (Auto) 0.300, Neut % (Auto) 78.2 H, Lymph % (Auto) 9.8 L, [place] % (Auto) 9.9, Eos % (Auto) 1.2, Baso % (Auto) 0.6, Absolute Neuts (auto) 7.1, Absolute Lymphs (auto) 0.89, Nucleated RBC % 0 07/31/20 10:33: Sodium 135 L, Potassium 2.8 L, Chloride 98, Carbon Dioxide 30.0, Anion Gap 7, BUN 27 H, Creatinine 2.04 H, Estim Creat Clear Calc 19.94, Est GFR (MDRD) Af Amer 30 L, Est GFR (MDRD) Non-Af 25 L, BUN/Creatinine Ratio 13.2, Glucose 118 H, Calcium 9.1, Troponin I 0.020 Current Medications Sodium Chloride () 1,000 mls @ 150 mls/hr IV .Q6H40M [facility] Last Admin: 07/31/20 11:23 Dose: 150 mls/hr Documented by: Assessment/Plan All Active Problems Neck pain (Acute) Bilateral leg weakness (Acute) Acute kidney injury superimposed on CKD (Acute) Acute cystitis (Acute) Patient is a 75-year-old lady presenting with neck pain. Found to have impaired kidney function on admission with hyperkalemia admitted to a monitored bed for further management 1. Neck pain ?Admitted to regular nursing floor for symptomatic management. As part of patient's management ordered MRI of the cervical spine as well as MRI of the lumbosacral spine regarding her bilateral lower extremity weakness. Contrast could not be added to the above test in view of patient impaired kidney function. 2. Acute kidney injury ?Superimposed on chronic kidney disease stage III on IV fluid with subsequent monitoring of electrolytes 3. CKD stage III ?Secondary to hypertensive nephrosclerosis patient presented with MONICA management as discussed above 4. Hypertension ?Patient blood pressure uncontrolled subsequently adjusted her home meds and added as needed hydralazine 5. Hypokalemia corrected per protocol 6. GERD ?Patient is on PPI did continue 7. DVT prophylaxis ?Lovenox dose adjusted for kidney function OBSV E&M: [id number] Initial observation care L3
[2020-07-31] MEDS: Potassium Chloride Oral Tablet 20 MEQ 40 MEQ PO (12:29)
--- NOTE | 2020-07-31 13:26 | EKG12_ITS ---
Test Reason : Blood Pressure : / mmHG Vent. Rate : 077 BPM Atrial Rate : 077 BPM P-R Int : 136 ms QRS Dur : 080 ms QT Int : 408 ms P-R-T Axes : 062 -04 024 degrees QTc Int : 461 ms Normal sinus rhythm Nonspecific ST and T wave abnormality Abnormal ECG When compared with ECG of 31-JUL-2020 11:20, MANUAL COMPARISON REQUIRED, DATA IS UNCONFIRMED Confirmed by MOMO SNUG, SANDRA ([id number]), continuity editor PRASANNA SINGLETON ([id number]) on 08/03/2020 10:22:52 AM Referred By: SHIKHA Confirmed By:SANDRA BARR MD
[2020-07-31] MEDS: amLODIPine 10 MG Tablet PO (13:34)
[2020-07-31] MEDS: Metoprolol Tartrate 25 MG Tablet PO ×2 (13:34→20:31)
[2020-07-31] MEDS: Acetaminophen 325 MG Tablet 650 MG PO (14:22)
[2020-07-31] MEDS: 0.9% Saline Lock 10 ML Syringe IV (15:02)
[2020-07-31] MEDS: hydrALAZINE 20 MG/ML Vial 10 MG IV ×2 (15:02→20:40)
[2020-07-31] MEDS: Potassium Chloride Oral Tablet 20 MEQ PO (16:21)
[2020-07-31] MEDS: Dicyclomine 10 MG Capsule PO ×2 (16:21→20:32)
[2020-07-31 18:47] LABS: Anion Gap 8 (5-15); BUN 25 mg/dL (7-18); Calcium,Total 8.7 mg/dL (8.5-10.1); Chloride 101 mmol/L (98-107); Creatinine, Serum 1.79 mg/dL (0.55-1.02); EST Glomerular Filtration Rate 29 mL/min (>60); Est Glom Filt Rate - Afr Amer 35 mL/min (>60); Estimated Creatinine Clearance 22.73 ml/min; Glucose 120 mg/dL (74-106); Potassium 3.6 mmol/L (3.5-5.1); Sodium Level 133 mmol/L (136-145)
[2020-07-31] MEDS: hydrALAZINE 50 MG Tablet PO (21:58)
[2020-08-01] VITALS (29 sets, daily range): BP systolic 170–210; BP diastolic 70–107; PULSE 79–106; RESP 18–20; TEMP 36.6–36.8; O2SAT 95–96
[2020-08-01] MEDS: hydrALAZINE 20 MG/ML Vial 10 MG IV ×6 (00:32→23:18)
[2020-08-01] MEDS: Ondansetron ODT 4 MG Tablet PO (01:19)
[2020-08-01] MEDS: Labetalol (Prefilled) 20 MG/4 ML IV ×3 (02:32→19:46)
[2020-08-01] MEDS: hydrALAZINE 50 MG Tablet 100 MG PO ×3 (05:17→20:56)
[2020-08-01] MEDS: Dicyclomine 10 MG Capsule PO ×4 (05:18→20:56)
[2020-08-01 05:20] LABS: Absolute Lymphocyte Count 0.37 X10^3/uL (0.83-4.51); Absolute Neutrophil Count 12.2 X10^3/uL (2.0-7.7); Basophil# 0.03 X10^3/uL; Basophil% 0.2 % (0-1); Eosinophil# 0.01 X10^3/uL; Eosinophils% 0.1 % (0-5); Hematocrit 40.1 % (37-47); Hemoglobin 14.3 g/dL (12.0-15.0); Lymphocyte # 0.37 X10^3/ul (4.0); Lymphocyte % 2.8 % (19-41); Mean Corp Hgb Conc 35.7 g/dL (32-36); Mean Corpuscular Hgb 30.8 pg (27.0-32.0); Mean Corpuscular Volume 86.4 fL (81-99); Mean Platelet Vol. 10.2 fl (6.2-12.0); Monocyte# 0.35 X10^3/uL; Monocyte% 2.7 % (0-10); NRBC Flagged by Analyzer 0 % (0-5); Neutrophil # 12.19 X10^3/uL (2.7-7.7); Neutrophil % 93.4 % (47-70); POSITIVE DIFFERENTIAL YES; Platelet Count 177 K/mm3 (150-450); RBC Distribution Width CV 14.4 % (11.6-14.6); RBC Distribution Width SD 44.3 fl (35.1-43.9); Red Blood Count 4.64 M/mm3 (4.2-5.4); White Blood Count 13.1 K/mm3 (4.4-11.0)
[2020-08-01 05:31] LABS: Differential Indicated SCAN CRITERIA MET
[2020-08-01 05:37] LABS: Anion Gap 7 (5-15); BUN 25 mg/dL (7-18); BUN/Creat Ratio 12.8 RATIO (10-20); Calcium,Total 8.3 mg/dL (8.5-10.1); Chloride 105 mmol/L (98-107); Creatinine, Serum 1.96 mg/dL (0.55-1.02); EST Glomerular Filtration Rate 26 mL/min (>60); Est Glom Filt Rate - Afr Amer 32 mL/min (>60); Estimated Creatinine Clearance 20.76 ml/min; Glucose 177 mg/dL (74-106); Potassium 3.7 mmol/L (3.5-5.1); Sodium Level 131 mmol/L (136-145)
[2020-08-01] MEDS: Potassium Chloride Oral Tablet 20 MEQ PO (11:22)
[2020-08-01] MEDS: Enoxaparin 30 MG/0.3 ML Syringe SC (11:23)
[2020-08-01] MEDS: Metoprolol Tartrate 25 MG Tablet PO ×2 (11:23→20:57)
[2020-08-01] MEDS: Pantoprazole Sodium 40 MG Tablet PO (11:24)
[2020-08-01] MEDS: amLODIPine 10 MG Tablet PO (11:24)
--- NOTE | 2020-08-01 12:56 | MRI_ITS ---
STUDY: MRI CERVICAL SPINE WITHOUT CONTRAST REASON FOR EXAM: Female, 75 years old. radiculopathy TECHNIQUE: Standardized fat and water weighted pulse sequences were obtained in the sagittal and axial planes. COMPARISON: 03/10/2019 FINDINGS: Normal foramen magnum. Normal craniovertebral junction. Atlantoaxial articulation intact with nonspecific left-sided joint effusion. Odontoid intact. Unchanged nonspecific empty sella sign. Cervical straightening. No significant scoliosis. Mild facet joint arthrosis. No abnormal cord signal. Symmetric vascular flow voids given technique. C2-3: Normal endplates. Central disc protrusion. Normal central canal. Mild neural foraminal narrowing. C3-4: Normal endplates. Central disc protrusion. Normal central canal. Moderate bilateral neural foraminal narrowing. C4-5: Normal endplates. Disc/osteophyte complex. Tiny central protrusion. Minimal grade 1 spondylolisthesis. Mild left neural foraminal narrowing. Normal right neural foramina. C5-6: Mild endplate spondylosis. Disc/osteophyte complex. Mild ventral cord contact. Mild neural foramina narrowing. Grade 1 spondylolisthesis. C6-7: Mild endplate spondylosis. Disc/osteophyte complex. Mild ventral cord contact. Mild neural foraminal narrowing. C7-T1: Normal endplates. Normal disc height, signal and morphology. Normal central canal and intervertebral neural foramina. MRI/Spine Cervical (Routine) IMPRESSION: No abnormal cord signal Multilevel intervertebral disc disease with mild central canal narrowing at C5-6 and C6-7 Multilevel mild/moderate neural foraminal narrowing most severe at C3-4 Cervical straightening with mild osteoarthritis predominating at C5-6 and C6-7 Grade 1 spondylolisthesis at C4-5 and C5-6 with facet joint arthrosis Small nonspecific left atlantoaxial joint effusion Unchanged nonspecific empty sella sign Electronically Signed: Ziyad Sher DO at 12:27 EDT Tel , Service support ,
--- NOTE | 2020-08-01 12:56 | MRI_ITS ---
STUDY: MRI LUMBAR SPINE WITHOUT CONTRAST REASON FOR EXAM: Female, 75 years old. radiculopathy TECHNIQUE: Standardized fat and water weighted pulse sequences were obtained in the sagittal and axial planes. COMPARISON: None FINDINGS: Lumbar lordosis maintained. No significant scoliosis. Conus medullaris terminates normally at the L1 level. No acute fracture, dislocation or cortical destruction. Paraspinal muscle atrophy. Sacrum intact. Normal aorta. Mild asymmetric left renal parenchymal atrophy. T12-L1: Normal endplates. Normal disc height, hydration and morphology. Normal bilateral facet joints. Normal central canal and bilateral lateral recesses. Normal bilateral intervertebral neural foramina. L1-2: Normal endplates. Disc desiccation. Normal bilateral facet joints. Normal central canal and bilateral lateral recesses. Normal bilateral intervertebral neural foramina. L2-3: Normal endplates. Shallow bilobed disc bulge. Facet joint arthrosis. Normal central canal and bilateral lateral recesses. Minimal neural foraminal narrowing. L3-4: Mild endplate spondylosis. Asymmetric disc bulge with mild central canal narrowing. Facet joint arthrosis. Right lateral recess narrowing without impingement. Bilateral neural foraminal narrowing without impingement. L4-5: Normal endplates. Shallow disc bulge. Facet joint arthrosis. Normal central canal and bilateral lateral recesses. Bilateral neural foraminal narrowing without impingement. Minimal grade 1 spondylolisthesis. L5-S1: Normal endplates. Normal disc height, hydration and morphology. Facet joint arthrosis. Normal central canal and bilateral lateral recesses. Minimal neural foraminal narrowing. MRI/Spine Lumbar (Routine) IMPRESSION: Multilevel intervertebral disc disease with mild central canal narrowing at L3-4 Multilevel neural foraminal narrowing without impingement Right lateral recess narrowing without impingement at L3-4 Multilevel facet joint arthrosis with grade 1 spondylolisthesis at L4-5 Mild asymmetric left renal parenchymal atrophy (cortical medical history) Electronically Signed: Ziyad Sher DO at 10:58 EDT Tel , Service support ,
--- NOTE | 2020-08-01 14:39 | CASEMGMT ---
Intro role of CM to patient and LESLIE form explained re: Observation status for treatment of neck pain. Explained hospitalization will be paid per insurance policy for Outpatient billing and condition will continue to be evaluated for Inpt necessity. Also let pt know that [facility] sends paper in the billing packet with their phone number if questions arise. Discussed Pharmacy section of LESLIE form and self administered medication guideline. Pt verbalizes understanding and does not have further questions. Form signed and placed in chart, copy to pt. SAGAR CELL BUILDER CM
--- NOTE | 2020-08-01 15:58 | CASEMGMT ---
Therapy is recommending HHC therapy for pt at this time. Pt/ aware and decline HHC therapy at this time but are interested in OP therapy at [facility] possibly at discharge. David, PCU charge, aware and this [facility] [employer] left an OP therapy order for pt with fax info, if pt to be discharged today and agreeable to OP therapy. Gerda MITTAL CM
--- NOTE | 2020-08-01 16:56 | TELEMED_ITS ---
[facility] has confirmed receipt of a request for visit. This document confirms receipt of the order initiating the consult. To find the results of the consultation, please view the patient's reports for the scanned Telemed Consult.
--- NOTE | 2020-08-01 16:57 | PN_ITS ---
Patient Problems: Active and Suspected Problems Neck pain (Acute) Bilateral leg weakness (Acute) Acute kidney injury superimposed on CKD (Acute) Subjective: Has been progressively weak over months. Patient having tremors and shuffling gait as well as micrographia. Where before she would have episodes of these short-lived and she will be back to her normal but it has been just more persistent. Vitals/I&O's: Vital Signs Temp Pulse Resp BP Pulse Ox 36.6 C 79 18 180/88 H 96 08/01/20 14:50 08/01/20 15:59 08/01/20 14:50 08/01/20 15:59 08/01/20 14:50 Oxygen Delivery Method Room Air Weight: 79.2 kg Body Mass Index (BMI) 29.9 Finger Stick Blood Glucose 123 Intake and Output for Last 24 Hours 07/30/20 07/31/20 08/01/20 22:59 23:59 23:59 Intake Total 2457.5 / 2457.5 Output Total 300 / 300 Balance 2157.5 / 2157.5 General: Alert, No apparent distress, Well developed HEENT: Atraumatic, EOMI, Normocephalic, - - Masked facies. Oral: Moist Mucosa, No Gingival or Mucosal Lesions/ Ulcerations Neck: No Nodes, Thyroid Normal Size and Texture Lungs: Clear to auscultation, Normal air movement, No rhonchi, No wheeze, No r ales Cardiovascular: Regular rate, Regular Rhythm, Normal S1, Normal S2, No murmurs Abdomen: Bowel Sounds Present, Soft, Non Tender, Non-Distended, No Hepato- splenomegaly Extremities: No edema, No Calf Tenderness Skin: No rashes, No breakdown Musculoskeletal: No Tenderness to Palpation of Joints or Extremities, No Muscle Wasting Neurological: Cranial nerves II-XII grossly intact, - - Resting tremor Psych/Mental Status: Appropriate, Flat Affect Laboratory Results 07/31/20 18:26: Sodium 133 L, Potassium 3.6, Chloride 101, Carbon Dioxide 24.0, Anion Gap 8, BUN 25 H, Creatinine 1.79 H, Estim Creat Clear Calc 22.73, Est GFR (MDRD) Af Amer 35 L, Est GFR (MDRD) Non-Af 29 L, BUN/Creatinine Ratio 14.0, Glucose 120 H, Calcium 8.7 08/01/20 05:14: WBC 13.1 H, RBC 4.64, Hgb 14.3, Hct 40.1, MCV 86.4, MCH 30.8, MCHC 35.7, RDW Std Deviation 44.3 H, RDW Coeff of Ricky 14.4, Plt Count 177, MPV 10.2, Immature Gran % (Auto) 0.800, Neut % (Auto) 93.4 H, Lymph % (Auto) 2.8 L, Mccormick % (Auto) 2.7, Eos % (Auto) 0.1, Baso % (Auto) 0.2, Absolute Neuts (auto) 12.2 H, Absolute Lymphs (auto) 0.37 L, Nucleated RBC % 0 08/01/20 05:14: Sodium 131 L, Potassium 3.7, Chloride 105, Carbon Dioxide 19.0 L , Anion Gap 7, BUN 25 H, Creatinine 1.96 H, Estim Creat Clear Calc 20.76, Est GFR (MDRD) Af Amer 32 L, Est GFR (MDRD) Non-Af 26 L, BUN/Creatinine Ratio 12.8, Glucose 177 H, Calcium 8.3 L Clinical Impression(s) from Imaging Studies Cervical Spine MRI 08/01/20 12:56 IMPRESSION: No abnormal cord signal Multilevel intervertebral disc disease with mild central canal narrowing at C5-6 and C6-7 Multilevel mild/moderate neural foraminal narrowing most severe at C3-4 Cervical straightening with mild osteoarthritis predominating at C5-6 and C6-7 Grade 1 spondylolisthesis at C4-5 and C5-6 with facet joint arthrosis Small nonspecific left atlantoaxial joint effusion Unchanged nonspecific empty sella sign Electronically Signed: Ziyad Sher DO at 12:27 EDT Tel , Service support , Lumbar Spine MRI 08/01/20 12:56 IMPRESSION: Multilevel intervertebral disc disease with mild central canal narrowing at L3-4 Multilevel neural foraminal narrowing without impingement Right lateral recess narrowing without impingement at L3-4 Multilevel facet joint arthrosis with grade 1 spondylolisthesis at L4-5 Mild asymmetric left renal parenchymal atrophy (cortical medical history) Electronically Signed: Ziyad Sher DO at 10:58 EDT Tel , Service support , Current Medications Acetaminophen (Acetaminophen 325 Mg Tablet) 650 mg PO Q6H PRN PRN PRN Reason: Pain Score 1-10/Temp > 100.7 F Last Admin: 07/31/20 14:22 Dose: 650 mg Documented by: Amlodipine Besylate (Amlodipine 10 Mg Tablet) 10 mg PO DAILY [facility] Last Admin: 08/01/20 11:24 Dose: 10 mg Documented by: Dicyclomine HCl (Dicyclomine 10 Mg Capsule) 10 mg PO ACHS [facility] Last Admin: 08/01/20 16:00 Dose: 10 mg Documented by: Docusate Sodium (Docusate Sodium 100 Mg Capsule) 100 mg PO BID PRN PRN PRN Reason: Constipation Enoxaparin Sodium (Enoxaparin 30 Mg/0.3 Ml Syringe) 30 mg SC DAILY [facility] Last Admin: 08/01/20 11:23 Dose: 30 mg Documented by: Hydralazine HCl (Hydralazine 20 Mg/Ml Vial) 10 mg IV Q4H PRN PRN PRN Reason: Hypertensive Emergency Last Admin: 08/01/20 15:59 Dose: 10 mg Documented by: Hydralazine HCl (Hydralazine 50 Mg Tablet) 100 mg PO TID [facility] Last Admin: 08/01/20 12:15 Dose: 100 mg Documented by: Potassium Chloride/Sodium Chloride () 1,000 mls @ 150 mls/hr IV .[id number] [facility] Stop: 08/01/20 22:15 Last Admin: 08/01/20 11:22 Dose: 150 mls/hr Documented by: Sodium Chloride () 500 mls @ 15 mls/hr IV PRN PRN PRN Reason: Blood Transfusion Sodium Chloride () 250 mls @ 15 mls/hr IV .[id number] PRN PRN Reason: Saline Flush Sodium Chloride () 250 mls @ 15 mls/hr IV .[id number] PRN PRN Reason: Additional IVPB Infusion Labetalol HCl (Labetalol (Prefilled) 20 Mg/4 Ml) 20 mg IV Q4H PRN PRN Reason: SBP>190 OR DBP>110 Last Admin: 08/01/20 04:47 Dose: 20 mg Documented by: Melatonin (Melatonin 3 Mg Tablet) 3 mg PO QHS PRN PRN PRN Reason: INSOMNIA Metoprolol Tartrate (Metoprolol Tartrate 25 Mg Tablet) 25 mg PO BID [facility] Last Admin: 08/01/20 11:23 Dose: 25 mg Documented by: Nitroglycerin (Nitroglycerin (Inpatient Use) 0.4 Mg Tab.Subl) 0.4 mg SL Q5M PRN PRN Reason: CARDIAC/CHEST PAIN Ondansetron HCl (Ondansetron Odt 4 Mg Tablet) 4 mg PO Q6H PRN PRN PRN Reason: NAUSEA Last Admin: 08/01/20 01:19 Dose: 4 mg Documented by: Ondansetron HCl (Ondansetron 4 Mg/2 Ml Vial) 4 mg IV Q8H PRN PRN PRN Reason: NAUSEA/VOMITING Pantoprazole Sodium (Pantoprazole Sodium 40 Mg Tablet) 40 mg PO DAILY [facility] Last Admin: 08/01/20 11:24 Dose: 40 mg Documented by: Polyethylene Glycol (Polyethylene Glycol 3350 17 Gm Packet) 17 gm PO DAILY [facility] Last Admin: 08/01/20 11:36 Dose: Not Given Documented by: Potassium Chloride (Potassium Chloride Oral Tablet 20 Meq) 20 meq PO BIDCM [facility] Last Admin: 08/01/20 16:02 Dose: Not Given Documented by: Psyllium Hydrophilic Mucilloid (Psyllium 1 Packet) 1 packet PO DAILY [facility] Last Admin: 08/01/20 11:23 Dose: Not Given Documented by: Sodium Chloride (0.9% Saline Lock 10 Ml Syringe) 10 - 40 ml IV UD PRN PRN Reason: SALINE FLUSH Last Admin: 07/31/20 15:02 Dose: 10 ml Documented by: STROKE Vital Signs/Narrative: Vital Signs Temp Pulse Resp BP Pulse Ox 08/01/20 15:59 79 180/88 H 08/01/20 14:50 36.6 C 87 18 180/85 H 96 Medical Necessity - Tobacco Use Smoking Status: Never smoker Assessment/Plan All Active Problems Neck pain (Acute) Bilateral leg weakness (Acute) Acute kidney injury superimposed on CKD (Acute) Acute cystitis (Acute) 1. Parkinsonism Patient with resting tremor, reported micrographia and shuffling gait. Patient undergo MRI of her cervical and lumbar spine that showed no acute process. Head CT was negative. Patient has progressively getting weaker. 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 Plan: Consult [facility] teleneurology for further recommendations. Likely patient would require closer neurologic follow-up upon discharge 2. neck pain seems likely was tension headache and migraine improved 3. lower extremity weakness PT recommends SNF, but would prefer to take patient home. 4. VTE prophylaxis: LMWH DW patient's at bedside. 35 minutes of which greater than 50% of time was discussing Parkinson's parkinsonism with patient and her . OBSV E&M: 78863 Subsequent observation care L3
[2020-08-01] MEDS: Ondansetron 4 MG/2 ML Vial IV (17:19)
[2020-08-01] MEDS: Acetaminophen 325 MG Tablet 650 MG PO (18:49)
[2020-08-01] MEDS: 0.9% Saline Lock 10 ML Syringe IV ×4 (19:46→23:18)
[2020-08-01] MEDS: Ketorolac 15 MG/ML Vial IV (20:55)
[2020-08-01] MEDS: DiphenhydrAMINE 25 MG Capsule PO (20:55)
[2020-08-01] MEDS: Metoclopramide 10 MG/2 ML Vial 5 MG IV (20:56)
[2020-08-02] VITALS (23 sets, daily range): BP systolic 156–194; BP diastolic 76–101; PULSE 86–103; RESP 18–24; TEMP 36.6–36.9; O2SAT 95–97
[2020-08-02] MEDS: hydrALAZINE 20 MG/ML Vial 10 MG IV ×4 (03:03→20:52)
[2020-08-02] MEDS: 0.9% Saline Lock 10 ML Syringe IV ×6 (03:04→20:54)
[2020-08-02] MEDS: Dicyclomine 10 MG Capsule PO ×4 (06:06→20:53)
[2020-08-02] MEDS: hydrALAZINE 50 MG Tablet 100 MG PO ×3 (06:06→20:53)
--- NOTE | 2020-08-02 08:02 | EKG12_ITS ---
Test Reason : CP Blood Pressure : / mmHG Vent. Rate : 098 BPM Atrial Rate : 098 BPM P-R Int : 126 ms QRS Dur : 076 ms QT Int : 372 ms P-R-T Axes : 054 008 022 degrees QTc Int : 474 ms Normal sinus rhythm Normal ECG When compared with ECG of 31-JUL-2020 13:08, MANUAL COMPARISON REQUIRED, DATA IS UNCONFIRMED Confirmed by MOMO SUNG, SANDRA ([id number]), manuscript editor PRASANNA SINGLETON ([id number]) on 08/04/2020 1:01:37 PM Referred By: SYL Confirmed By:SANDRA BARR MD
[2020-08-02] MEDS: Potassium Chloride Oral Tablet 20 MEQ PO ×2 (08:45→18:06)
[2020-08-02] MEDS: Enoxaparin 30 MG/0.3 ML Syringe SC (08:46)
[2020-08-02] MEDS: Metoprolol Tartrate 25 MG Tablet PO ×2 (08:46→20:53)
[2020-08-02] MEDS: Polyethylene Glycol 3350 17 GM PACKET PO (08:46)
[2020-08-02] MEDS: Pantoprazole Sodium 40 MG Tablet PO (08:46)
[2020-08-02] MEDS: Psyllium 1 PACKET PO (08:46)
[2020-08-02] MEDS: amLODIPine 10 MG Tablet PO (08:47)
--- NOTE | 2020-08-02 09:49 | MRI_ITS ---
STUDY: MRI BRAIN WITHOUT CONTRAST REASON FOR EXAM: Female, 75 years old. headache TECHNIQUE: Standardized multiplanar fat and water weighted pulse sequences were obtained. COMPARISON: CT 07/26/2020, MRI 03/10/2019 FINDINGS: There is mild cerebral atrophy with widening of the extra-axial spaces and ventricular dilatation. There are multiple white matter hyperintensities, distributed throughout the deep white matter tracts of the cerebral hemispheres, consistent with moderate chronic white matter ischemic changes. There is no evidence for recent intracranial ischemia or other cause of cytotoxic edema on diffusion weighted imaging (DWI). Normal T2* images of the brain without demonstrated susceptibility artifact. There is no demonstrated hemosiderin stain. Normal bilateral basal ganglia. Normal thalami. There is no extra-axial fluid accumulation. Normal flow voids within the major intracranial circulation suggesting patency by spin echo criteria. There is enlargement of the sella turcica with increased CSF within the sella and flattening of the pituitary gland consistent with an empty sellar syndrome. Normal infundibular stalk, hypothalamus, and optic chiasm. Normal tectal plate and pineal gland. Normal midbrain, deanne and medulla. Normal cerebellum. Normal basal cisterns. There is mild chronic otomastoiditis of the left temporal bone. Normal bilateral internal auditory canals. No demonstrated orbital abnormality, within the constraints of a routine brain study. Normal visualized paranasal sinuses. Normal calvarium and skull base. Normal visualized soft tissue structures. Normal visualized upper cervical spine. MRI/Brain without Contrast IMPRESSION: Involutional changes of the brain, as described above. No acute infarct. Electronically Signed: Davis Wright MD at 17:38 EDT Tel , Service support ,
--- NOTE | 2020-08-02 09:49 | MRI_ITS ---
STUDY: EXAMINATION - MRV BRAIN WITHOUT CONTRAST REASON FOR EXAM: Female, 75 years old. headache TECHNIQUE: 3D [id number] (TOF) imaging was performed in a 1.5 pedro MRI scanner. COMPARISON: None. FINDINGS: Normal flow within the superior sagittal sinus. Normal flow within the superficial cortical veins. Normal flow within the paired internal cerebral veins, vein of Arthur and straight sinus. Normal flow within the bilateral transverse and sigmoid sinuses. Normal flow within the bilateral jugular bulbs. MRI/MRV Head Without Contrast IMPRESSION: Normal unenhanced MRV of the brain. Electronically Signed: Davis Wright MD at 17:40 EDT Tel , Service support ,
[2020-08-02] MEDS: cloNIDine HCl 0.1 MG Patch TD (10:37)
[2020-08-02] MEDS: Ondansetron ODT 4 MG Tablet PO ×2 (10:55→18:04)
--- NOTE | 2020-08-02 14:42 | PCM.PN.HOSP ---
Patient Problems: Active and Suspected Problems Neck pain (Acute) Bilateral leg weakness (Acute) Acute kidney injury superimposed on CKD (Acute) Subjective: Had a headache earlier today but had warm blanket placed back of her head which seemed to alleviate that. noted that the patient was difficult to arouse last evening but today is much better. Vitals/I&O's: Vital Signs Temp Pulse Resp BP Pulse Ox 36.7 C 90 18 184/87 H 95 08/02/20 09:00 08/02/20 13:46 08/02/20 09:00 08/02/20 13:46 08/02/20 09:00 Oxygen Delivery Method Room Air Weight: 79.2 kg Body Mass Index (BMI) 29.9 Finger Stick Blood Glucose 123 Intake and Output for Last 24 Hours 07/31/20 08/01/20 08/02/20 23:59 23:59 23:59 Intake Total 3920.0 / 4220.0 360 / 360 Output Total 301 / 451 350 / 350 Balance 3619.0 / 3769.0 General: Alert, No apparent distress HEENT: Atraumatic, Normocephalic Neurological: - - Resting tremor Psych/Mental Status: Normal Affect, Appropriate Current Medications Acetaminophen (Acetaminophen 325 Mg Tablet) 650 mg PO Q6H PRN PRN PRN Reason: Pain Score 1-10/Temp > 100.7 F Last Admin: 08/01/20 18:49 Dose: 650 mg Documented by: Amlodipine Besylate (Amlodipine 10 Mg Tablet) 10 mg PO DAILY [facility] Last Admin: 08/02/20 08:47 Dose: 10 mg Documented by: Clonidine HCl (Clonidine Hcl 0.1 Mg Patch) 0.1 mg TD Q7D [facility] Last Admin: 08/02/20 10:37 Dose: 0.1 mg Documented by: Cyclobenzaprine HCl (Cyclobenzaprine Hcl 5 Mg Tablet) 5 mg PO TID PRN PRN Reason: tension headache Dicyclomine HCl (Dicyclomine 10 Mg Capsule) 10 mg PO ACHS [facility] Last Admin: 08/02/20 10:37 Dose: 10 mg Documented by: Docusate Sodium (Docusate Sodium 100 Mg Capsule) 100 mg PO BID PRN PRN PRN Reason: Constipation Enoxaparin Sodium (Enoxaparin 30 Mg/0.3 Ml Syringe) 30 mg SC DAILY [facility] Last Admin: 08/02/20 08:46 Dose: 30 mg Documented by: Hydralazine HCl (Hydralazine 20 Mg/Ml Vial) 10 mg IV Q4H PRN PRN PRN Reason: Hypertensive Emergency Last Admin: 08/02/20 08:01 Dose: 10 mg Documented by: Hydralazine HCl (Hydralazine 50 Mg Tablet) 100 mg PO TID [facility] Last Admin: 08/02/20 13:45 Dose: 100 mg Documented by: Sodium Chloride () 500 mls @ 15 mls/hr IV PRN PRN PRN Reason: Blood Transfusion Sodium Chloride () 250 mls @ 15 mls/hr IV .[id number] PRN PRN Reason: Saline Flush Sodium Chloride () 250 mls @ 15 mls/hr IV .[id number] PRN PRN Reason: Additional IVPB Infusion Labetalol HCl (Labetalol (Prefilled) 20 Mg/4 Ml) 20 mg IV Q4H PRN PRN Reason: SBP>190 OR DBP>110 Last Admin: 08/01/20 19:46 Dose: 20 mg Documented by: Melatonin (Melatonin 3 Mg Tablet) 3 mg PO QHS PRN PRN PRN Reason: INSOMNIA Metoprolol Tartrate (Metoprolol Tartrate 25 Mg Tablet) 25 mg PO BID [facility] Last Admin: 08/02/20 08:46 Dose: 25 mg Documented by: Nitroglycerin (Nitroglycerin (Inpatient Use) 0.4 Mg Tab.Subl) 0.4 mg SL Q5M PRN PRN Reason: CARDIAC/CHEST PAIN Ondansetron HCl (Ondansetron Odt 4 Mg Tablet) 4 mg PO Q6H PRN PRN PRN Reason: NAUSEA Last Admin: 08/02/20 10:55 Dose: 4 mg Documented by: Ondansetron HCl (Ondansetron 4 Mg/2 Ml Vial) 4 mg IV Q8H PRN PRN PRN Reason: NAUSEA/VOMITING Last Admin: 08/01/20 17:19 Dose: 4 mg Documented by: Pantoprazole Sodium (Pantoprazole Sodium 40 Mg Tablet) 40 mg PO DAILY [facility] Last Admin: 08/02/20 08:46 Dose: 40 mg Documented by: Polyethylene Glycol (Polyethylene Glycol 3350 17 Gm Packet) 17 gm PO DAILY [facility] Last Admin: 08/02/20 08:46 Dose: 17 gm Documented by: Potassium Chloride (Potassium Chloride Oral Tablet 20 Meq) 20 meq PO BIDCM [facility] Last Admin: 08/02/20 08:45 Dose: 20 meq Documented by: Psyllium Hydrophilic Mucilloid (Psyllium 1 Packet) 1 packet PO DAILY [facility] Last Admin: 08/02/20 08:46 Dose: 1 packet Documented by: Sodium Chloride (0.9% Saline Lock 10 Ml Syringe) 10 - 40 ml IV UD PRN PRN Reason: SALINE FLUSH Last Admin: 08/02/20 08:02 Dose: 10 ml Documented by: STROKE Vital Signs/Narrative: Vital Signs Pulse BP 08/02/20 13:46 90 184/87 H 08/02/20 13:45 90 Medical Necessity - Tobacco Use Smoking Status: Never smoker Assessment/Plan All Active Problems Neck pain (Acute) Bilateral leg weakness (Acute) Acute kidney injury superimposed on CKD (Acute) Acute cystitis (Acute) 1. Parkinsonism Patient with resting tremor, reported micrographia and shuffling gait. Patient undergo MRI of her cervical and lumbar spine that showed no acute process. Head CT was negative. Patient has progressively getting weaker. 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 Plan: Seen by [facility] teleneurology who recommend outpatient neurologic evaluation. Discussed with the patient and her . The ER staff with [facility] physicians and prefer to stay within that network. Since patient has concern for movement disorder, such as Parkinson's, recommend that they follow-up with the [facility] ([phone]). Continue to explain that the patient, when she gets sick, or tired will have more exaggerated symptoms and just being physically wiped out. They have an appointment to get the COVID-19 vaccination on the . I continue to encourage them to get that at that time. I did advise that she may have symptoms as this would be her second shot of just general illness though I did inform them that not everyone who gets a second Covid shot does get ill. But her illness may be more exaggerated given this underlying neurologic disorder. I told him that I cannot predict what her symptoms will be but she may be having more profound symptoms given this undiagnosed disease. 2. Headache and neck pain seems likely was tension headache and migraine Waxes and wanes Plan Neurology recommended MRI and MRV Start as needed cyclobenzaprine 3. lower extremity weakness PT recommends SNF, but would prefer to take patient home. They wish to follow-up with outpatient physical therapy as they are close to [facility]. 4. VTE prophylaxis: LMWH DW patient's at bedside. 35 minutes of which greater than 50% of time was discussing Parkinson's parkinsonism with patient and her , as well as Covid vaccination and potential for transient symptoms associated with the booster shot. Inpatient E&M: 72005 [facility] L3
[2020-08-02] MEDS: Acetaminophen 325 MG Tablet 650 MG PO (15:18)
--- NOTE | 2020-08-02 15:18 | CASEMGMT ---
Pt still awaiting MRI/MRV that was recommended by neuro. This RN CM to room and pt is sleeping with at bedside. is still undecided on OP therapy at this time, so order left on chart for PCU charge/RN to discuss with pt and fax if pt leaving later tonight. CM to follow. SStaten RN CM
[2020-08-02] MEDS: Ondansetron 4 MG/2 ML Vial IV (15:23)
[2020-08-02] MEDS: Labetalol (Prefilled) 20 MG/4 ML IV (20:07)
[2020-08-02] MEDS: MELATONIN 3 MG TABLET PO (20:53)
[2020-08-03] VITALS (14 sets, daily range): BP systolic 142–198; BP diastolic 69–103; PULSE 79–96; RESP 14–23; TEMP 36.7–36.9; O2SAT 94–99
[2020-08-03] MEDS: hydrALAZINE 20 MG/ML Vial 10 MG IV (03:47)
[2020-08-03] MEDS: Labetalol (Prefilled) 20 MG/4 ML IV (05:06)
[2020-08-03] MEDS: 0.9% Saline Lock 10 ML Syringe IV (05:07)
[2020-08-03] MEDS: hydrALAZINE 50 MG Tablet 100 MG PO ×3 (05:13→21:44)
[2020-08-03] MEDS: Dicyclomine 10 MG Capsule PO ×4 (05:13→21:44)
--- NOTE | 2020-08-03 06:12 | PCM.PN.BLA ---
Progress Note Patient with hypertensive urgency. Clonidine 0.3 mg p.o. ordered. Of note patient is on clonidine patch and other regimen. Will increase metoprolol from 25 mg twice daily to 50 mg twice daily. STROKE Vital Signs/Narrative: Vital Signs Temp Pulse Resp BP Pulse Ox 08/03/20 05:13 95 198/93 H 08/03/20 05:07 98.2 F 95 23 H 198/93 H 95 08/03/20 04:03 94 08/03/20 03:47 96 185/103 H 08/03/20 03:42 98.2 F 90 21 H 190/85 H 95
[2020-08-03] MEDS: Clonidine HCl 0.1 MG, Clonidine HCl 0.2 MG 0.3 MG PO (06:19)
--- NOTE | 2020-08-03 07:40 | RDU_ITS ---
Reason For Study: HTN, Uncontrolled Right Renal Artery Left Renal Artery Right renal artery ostium 59.7/11.8 Left renal artery distal 47.4/10.6 RSV/EDV. PSV/EDV. Right renal artery proximal Unable to visualize left renal 57.4/6.9 PSV/EDV. artery due to bowel gas and renal Right renal artery mid 45.2/7 placement. PSV/EDV. Left Renal Parenchyma Right renal artery distal 52.6/6.2 Left upper pole medulla 15.9/4.2 PSV/EDV. PSV/EDV . Right Renal Parenchyma Left upper pole medulla EDR 0.27 . Upper Pole Medula 16.3/5.3 PSV/EDV. Left upper pole medulla R.I. 0.73 . Right upper pole medulla EDR 0.32 . UP Cortex 9.4/4.7 PSV/EDV. Right upper pole medulla R.I. Left upper pole cortex EDR 0.50 . 0.68 . Left upper pole cortex R.I. 0.50 . Upper Federico Cortx 8.8/4.1 PSV/EDV. Left lower Pole medulla 13.7/3.7 Right upper pole cortex EDR 0.46 . PSV/EDV . Right upper pole cortex R.I. 0.54 . Left lower pole medulla EDR 0.27 . Right lower Pole medulla 15.9/4.1 Left lower pole medulla R.I. 0.73 . PSV/EDV . Lower Pole Cortx 8.5/3.3 PSV/EDV. Right lower pole medulla EDR 0.26 . Left lower pole cortex EDR 0.39 . Right lower pole medulla R.I. Left lower pole cortex R.I. 0.41 . 0.74 . Left Renal Hilar Lower Pole Cortex 10.2/3.6 PSV/EDV. LT Hilar avg 20.3/3.7 PSV/EDV . Right lower pole cortex EDR 0.35 . Left hilar acceleration time 40 Right lower pole cortex R.I. 0.65 . m/sec. Right Renal Hilar Left Renal Dimensions Right Hilar avg 30.5/5.3 PSV/EDV. Left kidney size 9.61 cm . Right hilar acceleration time 10 Left cortical dimension 1.13 cm . m/sec. Right Renal Dimensions Right kidney size 9.59 cm . Right cortical dimension 0.94 cm . Aorta Proximal abdominal aorta 1.78 x 1.75 cm . Proximal abdominal aorta peak systolic velocity is 73.2 cm/sec . Distal abdominal aorta 1.31 x 1.27 cm . Distal abdominal aorta peak systolic velocity is 148.4 cm/sec . Patient Safety Technically difficult and limitied study. Interpretation Summary Less than 60% stenosis bilateral renal arteries well visualized but I am able to visualize entire left renal artery secondary to overlying bowel gas Maximal aortic diameter 1.78 x 1.75 cm Elevated distal aortic velocity greater than 100cm/sec flow making renal/aortic ratios not reliable Right renal length borderline 9.59 cm Left renal length borderline 9.61cm Technically difficult and limited examination Ordering Physician: Ziyad Virk Referring Physician: Nohemi Cardoza M.D. Performed By: Shanna Cervantes RVT
[2020-08-03] MEDS: Enoxaparin 30 MG/0.3 ML Syringe SC (10:01)
[2020-08-03] MEDS: Potassium Chloride Oral Tablet 20 MEQ PO ×2 (10:01→16:54)
[2020-08-03] MEDS: amLODIPine 10 MG Tablet PO (10:02)
[2020-08-03] MEDS: Labetalol 100 MG Tablet PO ×2 (10:02→21:44)
[2020-08-03] MEDS: Pantoprazole Sodium 40 MG Tablet PO (10:02)
--- NOTE | 2020-08-03 14:24 | PN_ITS ---
Patient Problems: Active and Suspected Problems Neck pain (Acute) Bilateral leg weakness (Acute) Acute kidney injury superimposed on CKD (Acute) Subjective: No events overnight. Feeling well. No current headache. Vitals/I&O's: Vital Signs Temp Pulse Resp BP Pulse Ox 36.7 C 83 14 152/76 H 99 08/03/20 13:00 08/03/20 13:02 08/03/20 13:00 08/03/20 13:00 08/03/20 13:00 Oxygen Delivery Method Room Air Weight: 79.2 kg Body Mass Index (BMI) 29.9 Finger Stick Blood Glucose 123 Intake and Output for Last 24 Hours 08/01/20 08/02/20 08/03/20 23:59 23:59 23:59 Intake Total 3920.0 / 4220.0 360 / 540 180 / 180 Output Total 301 / 451 350 / 500 350 / 350 Balance 3619.0 / 3769.0 -170 / -170 General: Alert, No apparent distress HEENT: Atraumatic, Normocephalic Psych/Mental Status: Normal Affect, Appropriate Current Medications Acetaminophen (Acetaminophen 325 Mg Tablet) 650 mg PO Q6H PRN PRN PRN Reason: Pain Score 1-10/Temp > 100.7 F Last Admin: 08/02/20 15:18 Dose: 650 mg Documented by: Amlodipine Besylate (Amlodipine 10 Mg Tablet) 10 mg PO DAILY [facility] Last Admin: 08/03/20 10:02 Dose: 10 mg Documented by: Cyclobenzaprine HCl (Cyclobenzaprine Hcl 5 Mg Tablet) 5 mg PO TID PRN PRN Reason: tension headache Dicyclomine HCl (Dicyclomine 10 Mg Capsule) 10 mg PO [facility] Last Admin: 08/03/20 10:02 Dose: 10 mg Documented by: Docusate Sodium (Docusate Sodium 100 Mg Capsule) 100 mg PO BID PRN PRN PRN Reason: Constipation Enoxaparin Sodium (Enoxaparin 30 Mg/0.3 Ml Syringe) 30 mg SC DAILY [facility] Last Admin: 08/03/20 10:01 Dose: 30 mg Documented by: Hydralazine HCl (Hydralazine 20 Mg/Ml Vial) 10 mg IV Q4H PRN PRN PRN Reason: Hypertensive Emergency Last Admin: 08/03/20 03:47 Dose: 10 mg Documented by: Hydralazine HCl (Hydralazine 50 Mg Tablet) 100 mg PO TID [facility] Last Admin: 08/03/20 13:02 Dose: 100 mg Documented by: Sodium Chloride () 500 mls @ 15 mls/hr IV PRN PRN PRN Reason: Blood Transfusion Sodium Chloride () 250 mls @ 15 mls/hr IV .[id number] PRN PRN Reason: Saline Flush Sodium Chloride () 250 mls @ 15 mls/hr IV .[id number] PRN PRN Reason: Additional IVPB Infusion Labetalol HCl (Labetalol (Prefilled) 20 Mg/4 Ml) 20 mg IV Q4H PRN PRN Reason: SBP>190 OR DBP>110 Last Admin: 08/03/20 05:06 Dose: 20 mg Documented by: Labetalol HCl (Labetalol 100 Mg Tablet) 100 mg PO BID [facility] Last Admin: 08/03/20 10:02 Dose: 100 mg Documented by: Melatonin (Melatonin 3 Mg Tablet) 3 mg PO QHS PRN PRN PRN Reason: INSOMNIA Last Admin: 08/02/20 20:53 Dose: 3 mg Documented by: Nitroglycerin (Nitroglycerin (Inpatient Use) 0.4 Mg Tab.Subl) 0.4 mg SL Q5M PRN PRN Reason: CARDIAC/CHEST PAIN Ondansetron HCl (Ondansetron Odt 4 Mg Tablet) 4 mg PO Q6H PRN PRN PRN Reason: NAUSEA Last Admin: 08/02/20 18:04 Dose: 4 mg Documented by: Ondansetron HCl (Ondansetron 4 Mg/2 Ml Vial) 4 mg IV Q8H PRN PRN PRN Reason: NAUSEA/VOMITING Last Admin: 08/02/20 15:23 Dose: 4 mg Documented by: Pantoprazole Sodium (Pantoprazole Sodium 40 Mg Tablet) 40 mg PO DAILY [facility] Last Admin: 08/03/20 10:02 Dose: 40 mg Documented by: Polyethylene Glycol (Polyethylene Glycol 3350 17 Gm Packet) 17 gm PO DAILY [facility] Last Admin: 08/03/20 09:59 Dose: Not Given Documented by: Potassium Chloride (Potassium Chloride Oral Tablet 20 Meq) 20 meq PO BIDCM [facility] Last Admin: 08/03/20 10:01 Dose: 20 meq Documented by: Psyllium Hydrophilic Mucilloid (Psyllium 1 Packet) 1 packet PO DAILY [facility] Last Admin: 08/03/20 09:59 Dose: Not Given Documented by: Sodium Chloride (0.9% Saline Lock 10 Ml Syringe) 10 - 40 ml IV UD PRN PRN Reason: SALINE FLUSH Last Admin: 08/03/20 05:07 Dose: 10 ml Documented by: STROKE Vital Signs/Narrative: Vital Signs Temp Pulse Resp BP Pulse Ox 08/03/20 13:02 83 08/03/20 13:00 36.7 C 83 14 152/76 H 99 Medical Necessity - Tobacco Use Smoking Status: Never smoker Assessment/Plan All Active Problems Hypertensive urgency (Acute) Neck pain (Acute) Bilateral leg weakness (Acute) Acute kidney injury superimposed on CKD (Acute) Acute cystitis (Acute) 1. Parkinsonism Patient with resting tremor, reported micrographia and shuffling gait. Patient undergo MRI of her cervical and lumbar spine that showed no acute process. Head CT was negative. Patient has progressively getting weaker. 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 Plan: * Seen by [facility]eneu[facility] who recommend outpatient neurologic evaluation. * Discussed with the patient and her . The ER staff with [facility] physicians and prefer to stay within that network. Since patient has concern for movement disorder, such as Parkinson's, recommend that they follow-up with the [facility] ([phone]). * Continue to explain that the patient, when she gets sick, or tired will have more exaggerated symptoms and just being physically wiped out. They have an appointment to get the COVID-19 vaccination on the . I continue to encourage them to get that at that time. I did advise that she may have symptoms as this would be her second shot of just general illness though I did inform them that not everyone who gets a second Covid shot does get ill. But her illness may be more exaggerated given this underlying neurologic disorder. I told him that I cannot predict what her symptoms will be but she may be having more profound symptoms given this undiagnosed disease. 2. Headache and neck pain seems likely was tension headache and migraine Waxes and wanes MRI and MRV negative Plan * PRN cyclobenzaprine 3. lower extremity weakness PT recommends SNF, but would prefer to take patient home. They wish to follow-up with outpatient physical therapy as they are close to [facility]. 4. HTN urgency BP still very high plan * maxed on hydralazine and amlodipine * DC clonidine and metoprolol * start labetalol 100 BID, may need to increase. If refractory, may need to consider minoxidil. * check renal artery duplex 5. VTE prophylaxis: LMWH 6. disposition: pending BP, home with outpt therapy DW patient's at bedside. 35 minutes of which greater than 50% of time was discussing HTN and mgmt. Inpatient E&M: 54945 Subs Hosp L3
[2020-08-04] VITALS (12 sets, daily range): BP systolic 164–191; BP diastolic 81–87; PULSE 81–94; RESP 16–18; TEMP 36.3–37.1; O2SAT 93–95
[2020-08-04] MEDS: hydrALAZINE 20 MG/ML Vial 10 MG IV (00:19)
[2020-08-04] MEDS: Labetalol (Prefilled) 20 MG/4 ML IV (04:00)
[2020-08-04 05:45] LABS: Absolute Lymphocyte Count 0.43 X10^3/uL (0.83-4.51); Absolute Neutrophil Count 8.3 X10^3/uL (2.0-7.7); Basophil# 0.01 X10^3/uL; Basophil% 0.1 % (0-1); Eosinophil# 0.03 X10^3/uL; Eosinophils% 0.3 % (0-5); Hematocrit 33.2 % (37-47); Hemoglobin 11.2 g/dL (12.0-15.0); Lymphocyte # 0.43 X10^3/ul (4.0); Lymphocyte % 4.4 % (19-41); Mean Corp Hgb Conc 33.7 g/dL (32-36); Mean Corpuscular Hgb 30.4 pg (27.0-32.0); Mean Corpuscular Volume 90.2 fL (81-99); Mean Platelet Vol. 10.7 fl (6.2-12.0); Monocyte# 0.85 X10^3/uL; Monocyte% 8.7 % (0-10); NRBC Flagged by Analyzer 0 % (0-5); Neutrophil # 8.34 X10^3/uL (2.7-7.7); Neutrophil % 85.6 % (47-70); POSITIVE DIFFERENTIAL YES; Platelet Count 156 K/mm3 (150-450); RBC Distribution Width CV 14.3 % (11.6-14.6); RBC Distribution Width SD 47.4 fl (35.1-43.9); Red Blood Count 3.68 M/mm3 (4.2-5.4); White Blood Count 9.8 K/mm3 (4.4-11.0)
[2020-08-04 05:50] LABS: Differential Indicated SCAN CRITERIA MET
[2020-08-04] MEDS: hydrALAZINE 50 MG Tablet 100 MG PO ×3 (06:05→22:20)
[2020-08-04] MEDS: Dicyclomine 10 MG Capsule PO ×3 (06:05→22:21)
[2020-08-04 06:07] LABS: Anion Gap 10 (5-15); BUN 42 mg/dL (7-18); BUN/Creat Ratio 13.4 RATIO (10-20); Calcium,Total 8.2 mg/dL (8.5-10.1); Chloride 99 mmol/L (98-107); Creatinine, Serum 3.14 mg/dL (0.55-1.02); EST Glomerular Filtration Rate 15 mL/min (>60); Est Glom Filt Rate - Afr Amer 19 mL/min (>60); Estimated Creatinine Clearance 12.96 ml/min; Glucose 104 mg/dL (74-106); Potassium 4.4 mmol/L (3.5-5.1); Sodium Level 128 mmol/L (136-145)
[2020-08-04 06:17] LABS: Atypical Lymphocyte RARE %; Differential Comment SCANNED
[2020-08-04] MEDS: Potassium Chloride Oral Tablet 20 MEQ PO ×2 (09:57→16:52)
[2020-08-04] MEDS: amLODIPine 10 MG Tablet PO (09:57)
[2020-08-04] MEDS: Labetalol 100 MG Tablet PO ×2 (09:57→22:20)
[2020-08-04] MEDS: Pantoprazole Sodium 40 MG Tablet PO ×2 (09:57→22:21)
[2020-08-04] MEDS: Enoxaparin 30 MG/0.3 ML Syringe SC (09:58)
[2020-08-04 13:39] LABS: Anion Gap 10 (5-15); BUN 41 mg/dL (7-18); BUN/Creat Ratio 12.9 RATIO (10-20); Calcium,Total 8.4 mg/dL (8.5-10.1); Chloride 99 mmol/L (98-107); Creatinine, Serum 3.18 mg/dL (0.55-1.02); EST Glomerular Filtration Rate 15 mL/min (>60); Est Glom Filt Rate - Afr Amer 18 mL/min (>60); Estimated Creatinine Clearance 12.79 ml/min; Glucose 119 mg/dL (74-106); Potassium 4.5 mmol/L (3.5-5.1); Sodium Level 128 mmol/L (136-145)
--- NOTE | 2020-08-04 15:12 | PN_ITS ---
Patient Problems: Active and Suspected Problems Neck pain (Acute) Bilateral leg weakness (Acute) Acute kidney injury superimposed on CKD (Acute) Subjective: Complains of abdominal pain. Still with extremity swelling. Vitals/I&O's: Vital Signs Temp Pulse Resp BP Pulse Ox 36.7 C 88 16 168/81 H 93 08/04/20 14:41 08/04/20 14:46 08/04/20 14:41 08/04/20 14:41 08/04/20 14:41 Oxygen Delivery Method Room Air Weight: 79.2 kg Body Mass Index (BMI) 29.9 Finger Stick Blood Glucose 123 Intake and Output for Last 24 Hours 08/02/20 08/03/20 08/04/20 23:59 23:59 23:59 Intake Total 360 / 540 180 / 300 240 / 240 Output Total 350 / 500 350 / 350 Balance -170 / -50 240 / 240 General: Alert, Cooperative, No apparent distress HEENT: Atraumatic, Normocephalic Oral: Moist Mucosa, No Gingival or Mucosal Lesions/ Ulcerations Neck: No Nodes, Thyroid Normal Size and Texture Lungs: Clear to auscultation, Normal air movement, No rhonchi, No wheeze, No rales Cardiovascular: Regular rate, Regular Rhythm, Normal S1, Normal S2, No murmurs Abdomen: Bowel Sounds Present, Soft, Non Tender, Non-Distended, No Hepato- splenomegaly Extremities: No edema, No Calf Tenderness Psych/Mental Status: Normal Affect, Appropriate Laboratory Results 08/04/20 05:20: WBC 9.8, RBC 3.68 L, Hgb 11.2 L, Hct 33.2 L, MCV 90.2, MCH 30.4, MCHC 33.7 D, RDW Std Deviation 47.4 H, RDW Coeff of Ricky 14.3, Plt Count 156, MPV 10.7, Immature Gran % (Auto) 0.900, Neut % (Auto) 85.6 H, Lymph % (Auto) 4.4 L, [place] % (Auto) 8.7, Eos % (Auto) 0.3, Baso % (Auto) 0.1, Absolute Neuts (auto) 8.3 H, Absolute Lymphs (auto) 0.43 L, Nucleated RBC % 0, Differential Comment SCANNED, Atypical Lymphocytes RARE 08/04/20 05:20: Sodium 128 L, Potassium 4.4, Chloride 99, Carbon Dioxide 19.0 L, Anion Gap 10, BUN 42 H, Creatinine 3.14 H, Estim Creat Clear Calc 12.96, Est GFR (MDRD) Af Amer 19 L, Est GFR (MDRD) Non-Af 15 L, BUN/Creatinine Ratio 13.4, Glucose 104, Calcium 8.2 L 08/04/20 13:10: Sodium 128 L, Potassium 4.5, Chloride 99, Carbon Dioxide 19.0 L, Anion Gap 10, BUN 41 H, Creatinine 3.18 H, Estim Creat Clear Calc 12.79, Est GFR (MDRD) Af Amer 18 L, Est GFR (MDRD) Non-Af 15 L, BUN/Creatinine Ratio 12.9, Glucose 119 H, Calcium 8.4 L Current Medications Acetaminophen (Acetaminophen 325 Mg Tablet) 650 mg PO Q6H PRN PRN PRN Reason: Pain Score 1-10/Temp > 100.7 F Last Admin: 08/02/20 15:18 Dose: 650 mg Documented by: Amlodipine Besylate (Amlodipine 10 Mg Tablet) 10 mg PO DAILY [facility] Last Admin: 08/04/20 09:57 Dose: 10 mg Documented by: Cyclobenzaprine HCl (Cyclobenzaprine Hcl 5 Mg Tablet) 5 mg PO TID PRN PRN Reason: tension headache Dicyclomine HCl (Dicyclomine 10 Mg Capsule) 10 mg PO [facility] Last Admin: 08/04/20 11:02 Dose: Not Given Documented by: Docusate Sodium (Docusate Sodium 100 Mg Capsule) 100 mg PO BID PRN PRN PRN Reason: Constipation Enoxaparin Sodium (Enoxaparin 30 Mg/0.3 Ml Syringe) 30 mg SC DAILY [facility] Last Admin: 08/04/20 09:58 Dose: 30 mg Documented by: Hydralazine HCl (Hydralazine 20 Mg/Ml Vial) 10 mg IV Q4H PRN PRN PRN Reason: Hypertensive Emergency Last Admin: 08/04/20 00:19 Dose: 10 mg Documented by: Hydralazine HCl (Hydralazine 50 Mg Tablet) 100 mg PO TID [facility] Last Admin: 08/04/20 14:46 Dose: 100 mg Documented by: Sodium Chloride () 500 mls @ 15 mls/hr IV PRN PRN PRN Reason: Blood Transfusion Sodium Chloride () 250 mls @ 15 mls/hr IV .[id number] PRN PRN Reason: Saline Flush Sodium Chloride () 250 mls @ 15 mls/hr IV .[id number] PRN PRN Reason: Additional IVPB Infusion Labetalol HCl (Labetalol (Prefilled) 20 Mg/4 Ml) 20 mg IV Q4H PRN PRN Reason: SBP>190 OR DBP>110 Last Admin: 08/04/20 04:00 Dose: 20 mg Documented by: Labetalol HCl (Labetalol 100 Mg Tablet) 100 mg PO BID [facility] Last Admin: 08/04/20 09:57 Dose: 100 mg Documented by: Melatonin (Melatonin 3 Mg Tablet) 3 mg PO QHS PRN PRN PRN Reason: INSOMNIA Last Admin: 08/02/20 20:53 Dose: 3 mg Documented by: Nitroglycerin (Nitroglycerin (Inpatient Use) 0.4 Mg Tab.Subl) 0.4 mg SL Q5M PRN PRN Reason: CARDIAC/CHEST PAIN Ondansetron HCl (Ondansetron Odt 4 Mg Tablet) 4 mg PO Q6H PRN PRN PRN Reason: NAUSEA Last Admin: 08/02/20 18:04 Dose: 4 mg Documented by: Ondansetron HCl (Ondansetron 4 Mg/2 Ml Vial) 4 mg IV Q8H PRN PRN PRN Reason: NAUSEA/VOMITING Last Admin: 08/02/20 15:23 Dose: 4 mg Documented by: Pantoprazole Sodium (Pantoprazole Sodium 40 Mg Tablet) 40 mg PO DAILY [facility] Last Admin: 08/04/20 09:57 Dose: 40 mg Documented by: Polyethylene Glycol (Polyethylene Glycol 3350 17 Gm Packet) 17 gm PO DAILY [facility] Last Admin: 08/04/20 09:57 Dose: Not Given Documented by: Potassium Chloride (Potassium Chloride Oral Tablet 20 Meq) 20 meq PO BIDCM [facility] Last Admin: 08/04/20 09:57 Dose: 20 meq Documented by: Psyllium Hydrophilic Mucilloid (Psyllium 1 Packet) 1 packet PO DAILY [facility] Last Admin: 08/04/20 09:57 Dose: Not Given Documented by: Sodium Chloride (0.9% Saline Lock 10 Ml Syringe) 10 - 40 ml IV UD PRN PRN Reason: SALINE FLUSH Last Admin: 03/17/21 05:07 Dose: 10 ml Documented by: STROKE Vital Signs/Narrative: Vital Signs Temp Pulse Resp BP Pulse Ox 08/04/20 14:46 88 08/04/20 14:41 36.7 C 88 16 168/81 H 93 Medical Necessity - Tobacco Use Smoking Status: Never smoker Assessment/Plan All Active Problems Hypertensive urgency (Acute) Neck pain (Acute) Bilateral leg weakness (Acute) Acute kidney injury superimposed on CKD (Acute) Acute cystitis (Acute) 1. Parkinsonism Patient with resting tremor, reported micrographia and shuffling gait. Patient undergo MRI of her cervical and lumbar spine that showed no acute process. Head CT was negative. Patient has progressively getting weaker. 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 Plan: * Seen by [facility] who recommend outpatient neurologic evaluation. * Discussed with the patient and her . The ER staff with [facility] physicians and prefer to stay within that network. Since patient has concern for movement disorder, such as Parkinson's, recommend that they foll ow-up with [facility] ([phone]). * Continue to explain that the patient, when she gets sick, or tired will have more exaggerated symptoms and just being physically wiped out. They have an appointment to get the COVID-19 vaccination on the . I continue to encourage them to get that at that time. I did advise that she may have symptoms as this would be her second shot of just general illness though I did inform them that not everyone who gets a second Covid shot does get ill. But her illness may be more exaggerated given this underlying neurologic disorder. I told him that I cannot predict what her symptoms will be but she may be having more profound symptoms given this undiagnosed disease. 2. Headache and neck pain seems likely was tension headache and migraine Waxes and wanes MRI and MRV negative Plan * PRN cyclobenzaprine 3. lower extremity weakness PT recommends SNF, but would prefer to take patient home. They wish to follow-up with outpatient physical therapy as they are close to [facility]. 4. HTN urgency Improved overall plan * maxed on hydralazine and amlodipine * DC clonidine and metoprolol * start labetalol 100 BID, may need to increase. If refractory, may need to consider minoxidil. * renal artery duplex negative for LESLY. 5. VTE prophylaxis: LMWH 6. disposition: pending BP, home with outpt therapy 7. MONICA worse check urine studies monitor 35 minutes of which greater than 50% of time was discussing HTN and mgmt, MONICA. Inpatient E&M: 87882 Subs Hosp L3
--- NOTE | 2020-08-04 15:57 | CASEMGMT ---
RN told SW that patient and her now want patient to go to a custodial. SW met with patient and her . Introduced self and role at [facility]. SW went over how custodial placement works. Patient and her were provided a list of SNF providers including quality and resource use data and consistent with the patient?s preferred geographic region, medical needs, and insurance network. SW asked them to pick at least 3 options of places they would be okay with going and SW will call to check on availability. SW explained that since she does not have her vaccines she will be in quarantine for 14 days and that means no visitors for that time. After that nursing homes are scheduling visits. SW said when we find out which facility she is going to SW can ask the specifics on their visitation. SW went back to the room to answer more questions. Their [facility] choice [facility] and second [facility]. SW already checked with [facility] and they do not have beds. SW faxed referral to [facility] and and called with referral. Kiki [employer]
[2020-08-04 17:05] LABS: Mucous, Urine 0 SEEN /hpf (<or=2+); Red Blood Cells-Urine 0 SEEN /hpf (0-5); Squamous Epithelial Cells - UA 0 SEEN /hpf (5-10)
[2020-08-04 17:09] LABS: Color, Urine Yellow (Yellow); Glucose, Dipstick Normal (Normal); Ketone-Dipstick 5 mg/dl (Negative); Leukocyte Esterase-Dipstick 500 /ul (Negative); Nitrite-Dipstick Negative (Negative); Occult Blood-Urine 10 /ul (Negative); Protein-Dipstick 500 mg/dl (Negative); Specific Gravity, Urine 1.015 (1.002-1.030); Urine Bilirubin Dipstick Negative (Negative); Urine Clarity Cloudy (Clear); Urine Urobilinogen 1 mg/dl (Normal)
[2020-08-04 17:36] LABS: Bacteria 4+ /hpf (None Seen); White Blood Cells >100 SEEN /hpf (0-5)
[2020-08-04 17:37] LABS: Urine Sodium 14 mmol/L (Not Establ.)
[2020-08-05] VITALS (12 sets, daily range): BP systolic 145–183; BP diastolic 75–82; PULSE 75–91; RESP 14–16; TEMP 36.5–36.8; O2SAT 93–97
--- NOTE | 2020-08-05 03:00 | NURSING ---
pt awake, stated feeling sob and not being able to get enough air woke her up, assisted to the restroom, back to bed and was placed on 2lnc. states she feels better w the o2 on, was 93% on ra
[2020-08-05] MEDS: hydrALAZINE 50 MG Tablet 100 MG PO (05:16)
[2020-08-05] MEDS: Dicyclomine 10 MG Capsule PO ×4 (05:18→22:01)
[2020-08-05 05:37] LABS: Absolute Lymphocyte Count 0.39 X10^3/uL (0.83-4.51); Absolute Neutrophil Count 6.6 X10^3/uL (2.0-7.7); Basophil# 0.02 X10^3/uL; Basophil% 0.3 % (0-1); Eosinophil# 0.11 X10^3/uL; Eosinophils% 1.4 % (0-5); Hematocrit 32.3 % (37-47); Hemoglobin 11.2 g/dL (12.0-15.0); Lymphocyte # 0.39 X10^3/ul (4.0); Lymphocyte % 4.9 % (19-41); Mean Corp Hgb Conc 34.7 g/dL (32-36); Mean Corpuscular Hgb 30.8 pg (27.0-32.0); Mean Corpuscular Volume 88.7 fL (81-99); Mean Platelet Vol. 11.1 fl (6.2-12.0); Monocyte# 0.68 X10^3/uL; Monocyte% 8.6 % (0-10); NRBC Flagged by Analyzer 0 % (0-5); Neutrophil # 6.63 X10^3/uL (2.7-7.7); POSITIVE DIFFERENTIAL YES; Platelet Count 174 K/mm3 (150-450); RBC Distribution Width CV 14.2 % (11.6-14.6); RBC Distribution Width SD 46.2 fl (35.1-43.9); Red Blood Count 3.64 M/mm3 (4.2-5.4); White Blood Count 7.9 K/mm3 (4.4-11.0)
[2020-08-05 05:44] LABS: Differential Indicated SCAN CRITERIA MET
[2020-08-05 05:52] LABS: Anion Gap 13 (5-15); BUN 41 mg/dL (7-18); BUN/Creat Ratio 13.2 RATIO (10-20); Calcium,Total 8.2 mg/dL (8.5-10.1); Chloride 99 mmol/L (98-107); Creatinine, Serum 3.11 mg/dL (0.55-1.02); EST Glomerular Filtration Rate 15 mL/min (>60); Est Glom Filt Rate - Afr Amer 19 mL/min (>60); Estimated Creatinine Clearance 13.08 ml/min; Glucose 98 mg/dL (74-106); Potassium 4.3 mmol/L (3.5-5.1); Sodium Level 130 mmol/L (136-145)
[2020-08-05 06:12] LABS: Magnesium 2.2 mg/dL (1.6-2.6)
[2020-08-05 06:18] LABS: Differential Comment SCANNED
[2020-08-05] MEDS: Enoxaparin 30 MG/0.3 ML Syringe SC (09:32)
[2020-08-05] MEDS: Pantoprazole Sodium 40 MG Tablet PO ×2 (09:32→22:01)
[2020-08-05] MEDS: Potassium Chloride Oral Tablet 20 MEQ PO ×2 (09:32→16:49)
[2020-08-05] MEDS: Labetalol 100 MG Tablet 200 MG PO (09:35)
--- NOTE | 2020-08-05 09:48 | PN_ITS ---
Patient Problems: Active and Suspected Problems Neck pain (Acute) Bilateral leg weakness (Acute) Acute kidney injury superimposed on CKD (Acute) Subjective: Feels well. Decreased extremity edema. Vitals/I&O's: Vital Signs Temp Pulse Resp BP Pulse Ox 36.8 C 89 14 166/80 H 95 08/05/20 09:26 08/05/20 09:26 08/05/20 09:26 08/05/20 09:26 08/05/20 09:26 Oxygen Delivery Method Room Air Weight: 79.2 kg Body Mass Index (BMI) 29.9 Finger Stick Blood Glucose 123 Intake and Output for Last 24 Hours 08/03/20 08/04/20 08/05/20 23:59 23:59 23:59 Intake Total 180 / 300 240 / 340 100 / 100 Output Total 350 / 350 250 / 250 Balance -170 / -50 -10 / 90 100 / 100 General: Alert, No apparent distress HEENT: Atraumatic, Normocephalic Oral: Moist Mucosa, No Gingival or Mucosal Lesions/ Ulcerations Neck: No Nodes, Thyroid Normal Size and Texture Lungs: Clear to auscultation, Normal air movement, No rhonchi, No wheeze, No rales Cardiovascular: Regular rate, Regular Rhythm, Normal S1, Normal S2, No murmurs Abdomen: Bowel Sounds Present, Soft, Non Tender, Non-Distended, No Hepato-sple nomegaly Extremities: Edema - in UE and LE, improved overall. Skin: No rashes, No breakdown Psych/Mental Status: Normal Affect, Appropriate Laboratory Results 08/04/20 13:10: Sodium 128 L, Potassium 4.5, Chloride 99, Carbon Dioxide 19.0 L, Anion Gap 10, BUN 41 H, Creatinine 3.18 H, Estim Creat Clear Calc 12.79, Est GFR (MDRD) Af Amer 18 L, Est GFR (MDRD) Non-Af 15 L, BUN/Creatinine Ratio 12.9, Glucose 119 H, Calcium 8.4 L 08/04/20 16:50: Urine Color Yellow, Urine Clarity Cloudy, Urine pH 6.0, Ur Specific Norris 1.015, Urine Protein 500 H, Urine Glucose (UA) Normal, Urine Ketones 5 H, Urine Occult Blood 10 H, Urine Nitrite Negative, Urine Bilirubin Negative, Urine Urobilinogen 1 H, Ur Leukocyte Esterase 500 H, Urine RBC 0 SEEN, Urine WBC >100 SEEN, Ur Squamous Epith Cells 0 SEEN, Urine Bacteria 4+, Urine Mucus 0 SEEN 08/04/20 16:50: Ur Random Sodium 14, Urine Creatinine 90.40 08/05/20 04:50: Magnesium 2.2 08/05/20 04:55: Sodium 130 L, Potassium 4.3, Chloride 99, Carbon Dioxide 18.0 L, Anion Gap 13, BUN 41 H, Creatinine 3.11 H, Estim Creat Clear Calc 13.08, Est GFR (MDRD) Af Amer 19 L, Est GFR (MDRD) Non-Af 15 L, BUN/Creatinine Ratio 13.2, Glucose 98, Calcium 8.2 L 08/05/20 04:55: WBC 7.9, RBC 3.64 L, Hgb 11.2 L, Hct 32.3 L, MCV 88.7, MCH 30.8, MCHC 34.7, RDW Std Deviation 46.2 H, RDW Coeff of Ricky 14.2, Plt Count 174, MPV 11.1, Immature Gran % (Auto) 1.100 H, Neut % (Auto) Not Reportable, Lymph % (Auto) 4.9 L, [place] % (Auto) 8.6, Eos % (Auto) 1.4, Baso % (Auto) 0.3, Absolute Neuts (auto) 6.6, Absolute Lymphs (auto) 0.39 L, Nucleated RBC % 0, Differential Comment SCANNED Current Medications Acetaminophen (Acetaminophen 325 Mg Tablet) 650 mg PO Q6H PRN PRN PRN Reason: Pain Score 1-10/Temp > 100.7 F Last Admin: 08/02/20 15:18 Dose: 650 mg Documented by: Cyclobenzaprine HCl (Cyclobenzaprine Hcl 5 Mg Tablet) 5 mg PO TID PRN PRN Reason: tension headache Dicyclomine HCl (Dicyclomine 10 Mg Capsule) 10 mg PO [facility] Last Admin: 08/05/20 05:18 Dose: 10 mg Documented by: Docusate Sodium (Docusate Sodium 100 Mg Capsule) 100 mg PO BID PRN PRN PRN Reason: Constipation Enoxaparin Sodium (Enoxaparin 30 Mg/0.3 Ml Syringe) 30 mg SC DAILY [facility] Last Admin: 08/05/20 09:32 Dose: 30 mg Documented by: Hydralazine HCl (Hydralazine 20 Mg/Ml Vial) 10 mg IV Q4H PRN PRN PRN Reason: Hypertensive Emergency Last Admin: 08/04/20 00:19 Dose: 10 mg Documented by: Hydralazine HCl (Hydralazine 50 Mg Tablet) 100 mg PO TID [facility] Last Admin: 08/05/20 05:16 Dose: 100 mg Documented by: Sodium Chloride () 500 mls @ 15 mls/hr IV PRN PRN PRN Reason: Blood Transfusion Sodium Chloride () 250 mls @ 15 mls/hr IV .[id number] PRN PRN Reason: Saline Flush Sodium Chloride () 250 mls @ 15 mls/hr IV .[id number] PRN PRN Reason: Additional IVPB Infusion Labetalol HCl (Labetalol (Prefilled) 20 Mg/4 Ml) 20 mg IV Q4H PRN PRN Reason: SBP>190 OR DBP>110 Last Admin: 08/04/20 04:00 Dose: 20 mg Documented by: Labetalol HCl (Labetalol 100 Mg Tablet) 200 mg PO BID [facility] Last Admin: 08/05/20 09:35 Dose: 200 mg Documented by: Melatonin (Melatonin 3 Mg Tablet) 3 mg PO QHS PRN PRN PRN Reason: INSOMNIA Last Admin: 08/02/20 20:53 Dose: 3 mg Documented by: Nitroglycerin (Nitroglycerin (Inpatient Use) 0.4 Mg Tab.Subl) 0.4 mg SL Q5M PRN PRN Reason: CARDIAC/CHEST PAIN Ondansetron HCl (Ondansetron Odt 4 Mg Tablet) 4 mg PO Q6H PRN PRN PRN Reason: NAUSEA Last Admin: 08/02/20 18:04 Dose: 4 mg Documented by: Ondansetron HCl (Ondansetron 4 Mg/2 Ml Vial) 4 mg IV Q8H PRN PRN PRN Reason: NAUSEA/VOMITING Last Admin: 08/02/20 15:23 Dose: 4 mg Documented by: Pantoprazole Sodium (Pantoprazole Sodium 40 Mg Tablet) 40 mg PO BID [facility] Last Admin: 08/05/20 09:32 Dose: 40 mg Documented by: Polyethylene Glycol (Polyethylene Glycol 3350 17 Gm Packet) 17 gm PO DAILY [facility] Last Admin: 08/05/20 09:30 Dose: Not Given Documented by: Potassium Chloride (Potassium Chloride Oral Tablet 20 Meq) 20 meq PO BIDCM [facility] Last Admin: 08/05/20 09:32 Dose: 20 meq Documented by: Psyllium Hydrophilic Mucilloid (Psyllium 1 Packet) 1 packet PO DAILY [facility] Last Admin: 08/05/20 09:30 Dose: Not Given Documented by: Sodium Chloride (0.9% Saline Lock 10 Ml Syringe) 10 - 40 ml IV UD PRN PRN Reason: SALINE FLUSH Last Admin: 08/03/20 05:07 Dose: 10 ml Documented by: STROKE Vital Signs/Narrative: Vital Signs Temp Pulse Resp BP Pulse Ox 08/05/20 09:26 36.8 C 89 14 166/80 H 95 08/05/20 06:46 89 Medical Necessity - Tobacco Use Smoking Status: Never smoker Assessment/Plan All Active Problems Hypertensive urgency (Acute) Neck pain (Acute) Bilateral leg weakness (Acute) Acute kidney injury superimposed on CKD (Acute) Acute cystitis (Acute) 1. Parkinsonism Currently, seems improved, but has steadily worsened. Patient with resting tremor, reported micrographia and shuffling gait. Patient undergo MRI of her cervical and lumbar spine that showed no acute process. Head CT was negative. Patient has progressively getting weaker. 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 Plan: * Seen by [facility] [place] [place] [facility]eneurology who recommend outpatient neurologic evaluation. * Discussed with the patient and her . The ER staff with [facility] physicians and prefer to stay within that network. Since patient has concern for movement disorder, such as Parkinson's, recommend that they follow-up with the [facility] at [facility] ([phone]). * Continue to explain that the patient, when she gets sick, or tired will have more exaggerated symptoms and just being physically wiped out. They have an appointment to get the COVID-19 vaccination on the . I continue to encourage them to get that at that time. I did advise that she may have symptoms as this would be her second shot of just general illness though I did inform them that not everyone who gets a second Covid shot does get ill. But her illness may be more exaggerated given this underlying neurologic disorder. I told him that I cannot predict what her symptoms will be but she may be having more profound symptoms given this undiagnosed disease. 2. Headache and neck pain improved seems likely was tension headache and migraine Waxes and wanes MRI and MRV negative Plan * PRN cyclobenzaprine 3. lower extremity weakness PT recommends SNF, but would prefer to take patient home. They wish to follow-up with outpatient physical therapy as they are close to [facility]. 4. HTN urgency Improved overall renal artery duplex negative for LESLY. plan * maxed on hydralazine * DC clonidine and metoprolol * 08/05: BP still elevated with SBP in 180s. Given her peripheral edema, I am concerned that this is due to amlodipine. Will dc amlodipine and increase labetalol to 200 BID * consult nephrology for input 5. VTE prophylaxis: LMWH 6. disposition: pending BP, home with outpt therapy 7. MONICA worse from 08/03, but stable FENa 0.39%, cw prerenal azotemia Consult nephrology for further recommendations (GA Moore) Inpatient E&M: 13240 Subs Hosp L2
--- NOTE | 2020-08-05 10:51 | CASEMGMT ---
DENNISE had to re-fax referral. The fax that was sent last night not all of the pages went through. SW re-faxed referral in 2 separate faxes. Kiki POTTER MSW
--- NOTE | 2020-08-05 11:40 | CON.PCM_ITS ---
Consultation - Renal 08/05/20 PCP/ Referring MD: Requesting physician: [] Primary care physician: Dr. Nohemi Cardoza MD - History of Present Illness History of Present Illness: The patient is a 75 year old F with parkinsonism CKD III a Bscr 1.5-1.6 Patient with resting tremor, reported micrographia and shuffling gait. Developed MONICA creatinine peaked mid 3 now 3.11, prerenal in etiology. Patient undergo MRI of her cervical and lumbar spine that showed no acute process. Head CT was negative. Patient has progressively getting weaker. Developed HTN urgency Renal artery duplex negative for LESLY.Per IMS DC clonidine and metoprolol, hydralazine maximized dc amlodipine and increase labetalol to 200 BID - Allergies Allergies: Allergies codeine Allergy (Verified 07/31/20 10:28) Nausea NARCOTICS Adverse Reaction (Uncoded 07/31/20 10:28) Upset Stomach - Current Medications Current Medications: Current Medications Acetaminophen (Acetaminophen 325 Mg Tablet) 650 mg PO Q6H PRN PRN PRN Reason: Pain Score 1-10/Temp > 100.7 F Last Admin: 08/02/20 15:18 Dose: 650 mg Documented by: Cyclobenzaprine HCl (Cyclobenzaprine Hcl 5 Mg Tablet) 5 mg PO TID PRN PRN Reason: tension headache Dicyclomine HCl (Dicyclomine 10 Mg Capsule) 10 mg PO ACHS ON LICENSE OF [facility] Last Admin: 08/05/20 11:11 Dose: 10 mg Documented by: Docusate Sodium (Docusate Sodium 100 Mg Capsule) 100 mg PO BID PRN PRN PRN Reason: Constipation Enoxaparin Sodium (Enoxaparin 30 Mg/0.3 Ml Syringe) 30 mg SC DAILY ON LICENSE OF [facility] Last Admin: 08/05/20 09:32 Dose: 30 mg Documented by: Hydralazine HCl (Hydralazine 20 Mg/Ml Vial) 10 mg IV Q4H PRN PRN PRN Reason: Hypertensive Emergency Last Admin: 08/04/20 00:19 Dose: 10 mg Documented by: Hydralazine HCl (Hydralazine 50 Mg Tablet) 100 mg PO TID ON LICENSE OF [facility] Last Admin: 08/05/20 05:16 Dose: 100 mg Documented by: Sodium Chloride () 500 mls @ 15 mls/hr IV PRN PRN PRN Reason: Blood Transfusion Sodium Chloride () 250 mls @ 15 mls/hr IV .[id number] PRN PRN Reason: Saline Flush Sodium Chloride () 250 mls @ 15 mls/hr IV .[id number] PRN PRN Reason: Additional IVPB Infusion Labetalol HCl (Labetalol (Prefilled) 20 Mg/4 Ml) 20 mg IV Q4H PRN PRN Reason: SBP>190 OR DBP>110 Last Admin: 08/04/20 04:00 Dose: 20 mg Documented by: Labetalol HCl (Labetalol 100 Mg Tablet) 200 mg PO BID ON LICENSE OF [facility] Last Admin: 08/05/20 09:35 Dose: 200 mg Documented by: Melatonin (Melatonin 3 Mg Tablet) 3 mg PO QHS PRN PRN PRN Reason: INSOMNIA Last Admin: 08/02/20 20:53 Dose: 3 mg Documented by: Nitroglycerin (Nitroglycerin (Inpatient Use) 0.4 Mg Tab.Subl) 0.4 mg SL Q5M PRN PRN Reason: CARDIAC/CHEST PAIN Ondansetron HCl (Ondansetron Odt 4 Mg Tablet) 4 mg PO Q6H PRN PRN PRN Reason: NAUSEA Last Admin: 08/02/20 18:04 Dose: 4 mg Documented by: Ondansetron HCl (Ondansetron 4 Mg/2 Ml Vial) 4 mg IV Q8H PRN PRN PRN Reason: NAUSEA/VOMITING Last Admin: 08/02/20 15:23 Dose: 4 mg Documented by: Pantoprazole Sodium (Pantoprazole Sodium 40 Mg Tablet) 40 mg PO BID ON LICENSE OF [facility] Last Admin: 08/05/20 09:32 Dose: 40 mg Documented by: Polyethylene Glycol (Polyethylene Glycol 3350 17 Gm Packet) 17 gm PO DAILY ON LICENSE OF [facility] Last Admin: 08/05/20 09:30 Dose: Not Given Documented by: Potassium Chloride (Potassium Chloride Oral Tablet 20 Meq) [facility] Last Admin: 08/05/20 09:32 Dose: 20 meq Documented by: Psyllium Hydrophilic Mucilloid (Psyllium 1 Packet) 1 packet PO DAILY ON LICENSE OF [facility] Last Admin: 08/05/20 09:30 Dose: Not Given Documented by: Sodium Chloride (0.9% Saline Lock 10 Ml Syringe) 10 - 40 ml IV UD PRN PRN Reason: SALINE FLUSH Last Admin: 08/03/20 05:07 Dose: 10 ml Documented by: - Past Medical History Past Medical History (Chronic Problems): Chronic Problems Stage III chronic kidney disease (Chronic) Irritable bowel syndrome (Chronic) Hypertension (Chronic) GERD (gastroesophageal reflux disease) (Chronic) Chronic abdominal pain (Chronic) - Past Surgical History Surgical History: appendectomy, cholecystectomy, hysterectomy, tonsillectomy, - - Salpingoophorectomy - Social History Smoking Status: Never smoker - Family History Maternal History Items: Heart Disease, Stroke Paternal History Items: Heart Disease Review of Systems HEENT: Denies: Head Aches, Sinus Congestion, Sinus Drainage Cardiovascular: Denies: Chest Pain, Palpitations Respiratory: Reports: Cough Gastrointestinal: Reports: Abdominal Pain Genitourinary: Denies: Dysuria Musculoskeletal: Denies: Joint Pain, Joint Tenderness Patient Problems: Active and Suspected Problems Neck pain (Acute) Bilateral leg weakness (Acute) Acute kidney injury superimposed on CKD (Acute) - Physical Exam Vitals/I&O's: Vital Signs Temp Pulse Resp BP Pulse Ox 98.2 F 89 14 166/80 H 95 08/05/20 09:26 08/05/20 09:26 08/05/20 09:26 08/05/20 09:26 08/05/20 09:26 Oxygen Delivery Method Room Air Weight: 79.2 kg Body Mass Index (BMI) 29.9 Finger Stick Blood Glucose 123 Intake and Output for Last 24 Hours 08/03/20 08/04/20 08/05/20 23:59 23:59 23:59 Intake Total 180 / 300 240 / 340 100 / 100 Output Total 350 / 350 250 / 250 Balance -170 / -50 -10 / 90 100 / 100 General: Alert, Oriented x3, Cooperative HEENT: Atraumatic, PERRLA, EOMI, Normocephalic Neck: Supple, No JVD, Negative Carotid Bruits Lungs: Clear to auscultation, Normal air movement Cardiovascular: Regular rate, No murmurs Abdomen: Bowel Sounds Present, Soft, Non Tender Extremities: No clubbing Skin: No rashes, No breakdown Musculoskeletal: No Tenderness to Palpation of Joints or Extremities Neurological: Cranial nerves II-XII grossly intact Laboratory Results 08/04/20 13:10: Sodium 128 L, Potassium 4.5, Chloride 99, Carbon Dioxide 19.0 L, Anion Gap 10, BUN 41 H, Creatinine 3.18 H, Estim Creat Clear Calc 12.79, Est GFR (MDRD) Af Amer 18 L, Est GFR (MDRD) Non-Af 15 L, BUN/Creatinine Ratio 12.9, Glucose 119 H, Calcium 8.4 L 08/04/20 16:50: Urine Color Yellow, Urine Clarity Cloudy, Urine pH 6.0, Ur Specific [place] 1.015, Urine Protein 500 H, Urine Glucose (UA) Normal, Urine Ketones 5 H, Urine Occult Blood 10 H, Urine Nitrite Negative, Urine Bilirubin Negative, Urine Urobilinogen 1 H, Ur Leukocyte Esterase 500 H, Urine RBC 0 SEEN, Urine WBC >100 SEEN, Ur Squamous Epith Cells 0 SEEN, Urine Bacteria 4+, Urine Mucus 0 SEEN 08/04/20 16:50: Ur Random Sodium 14, Urine Creatinine 90.40 08/05/20 04:50: Magnesium 2.2 08/05/20 04:55: Sodium 130 L, Potassium 4.3, Chloride 99, Carbon Dioxide 18.0 L, Anion Gap 13, BUN 41 H, Creatinine 3.11 H, Estim Creat Clear Calc 13.08, Est GFR (MDRD) Af Amer 19 L, Est GFR (MDRD) Non-Af 15 L, BUN/Creatinine Ratio 13.2, Glucose 98, Calcium 8.2 L 08/05/20 04:55: WBC 7.9, RBC 3.64 L, Hgb 11.2 L, Hct 32.3 L, MCV 88.7, MCH 30.8, MCHC 34.7, RDW Std Deviation 46.2 H, RDW Coeff of Ricky 14.2, Plt Count 174, MPV 11.1, Immature Gran % (Auto) 1.100 H, Neut % (Auto) Not Reportable, Lymph % (Auto) 4.9 L, [place] % (Auto) 8.6, Eos % (Auto) 1.4, Baso % (Auto) 0.3, Absolute Neuts (auto) 6.6, Absolute Lymphs (auto) 0.39 L, Nucleated RBC % 0, Differential Comment SCANNED Current Medications Acetaminophen (Acetaminophen 325 Mg Tablet) 650 mg PO Q6H PRN PRN PRN Reason: Pain Score 1-10/Temp > 100.7 F Last Admin: 08/02/20 15:18 Dose: 650 mg Documented by: Cyclobenzaprine HCl (Cyclobenzaprine Hcl 5 Mg Tablet) 5 mg PO TID PRN PRN Reason: tension headache Dicyclomine HCl (Dicyclomine 10 Mg Capsule) 10 mg PO ACHS ON LICENSE OF [facility] Last Admin: 08/05/20 11:11 Dose: 10 mg Documented by: Docusate Sodium (Docusate Sodium 100 Mg Capsule) 100 mg PO BID PRN PRN PRN Reason: Constipation Enoxaparin Sodium (Enoxaparin 30 Mg/0.3 Ml Syringe) 30 mg SC DAILY ON LICENSE OF [facility] Last Admin: 08/05/20 09:32 Dose: 30 mg Documented by: Hydralazine HCl (Hydralazine 20 Mg/Ml Vial) 10 mg IV Q4H PRN PRN PRN Reason: Hypertensive Emergency Last Admin: 08/04/20 00:19 Dose: 10 mg Documented by: Hydralazine HCl (Hydralazine 50 Mg Tablet) 100 mg PO TID ON LICENSE OF [facility] Last Admin: 08/05/20 05:16 Dose: 100 mg Documented by: Sodium Chloride () 500 mls @ 15 mls/hr IV PRN PRN PRN Reason: Blood Transfusion Sodium Chloride () 250 mls @ 15 mls/hr IV .[id number] PRN PRN Reason: Saline Flush Sodium Chloride () 250 mls @ 15 mls/hr IV .[id number] PRN PRN Reason: Additional IVPB Infusion Labetalol HCl (Labetalol (Prefilled) 20 Mg/4 Ml) 20 mg IV Q4H PRN PRN Reason: SBP>190 OR DBP>110 Last Admin: 08/04/20 04:00 Dose: 20 mg Documented by: Labetalol HCl (Labetalol 100 Mg Tablet) 200 mg PO BID ON LICENSE OF [facility] Last Admin: 08/05/20 09:35 Dose: 200 mg Documented by: Melatonin (Melatonin 3 Mg Tablet) 3 mg PO QHS PRN PRN PRN Reason: INSOMNIA Last Admin: 08/02/20 20:53 Dose: 3 mg Documented by: Nitroglycerin (Nitroglycerin (Inpatient Use) 0.4 Mg Tab.Subl) 0.4 mg SL Q5M PRN PRN Reason: CARDIAC/CHEST PAIN Ondansetron HCl (Ondansetron Odt 4 Mg Tablet) 4 mg PO Q6H PRN PRN PRN Reason: NAUSEA Last Admin: 08/02/20 18:04 Dose: 4 mg Documented by: Ondansetron HCl (Ondansetron 4 Mg/2 Ml Vial) 4 mg IV Q8H PRN PRN PRN Reason: NAUSEA/VOMITING Last Admin: 08/02/20 15:23 Dose: 4 mg Documented by: Pantoprazole Sodium (Pantoprazole Sodium 40 Mg Tablet) 40 mg PO BID ON LICENSE OF [facility] Last Admin: 08/05/20 09:32 Dose: 40 mg Documented by: Polyethylene Glycol (Polyethylene Glycol 3350 17 Gm Packet) 17 gm PO DAILY ON LICENSE OF [facility] Last Admin: 08/05/20 09:30 Dose: Not Given Documented by: Potassium Chloride (Potassium Chloride Oral Tablet 20 Meq) [facility] Last Admin: 08/05/20 09:32 Dose: 20 meq Documented by: Psyllium Hydrophilic Mucilloid (Psyllium 1 Packet) 1 packet PO DAILY ON LICENSE OF [facility] Last Admin: 08/05/20 09:30 Dose: Not Given Documented by: Sodium Chloride (0.9% Saline Lock 10 Ml Syringe) 10 - 40 ml IV UD PRN PRN Reason: SALINE FLUSH Last Admin: 08/03/20 05:07 Dose: 10 ml Documented by: Assessment/Plan All Active Problems Hypertensive urgency (Acute) Neck pain (Acute) Bilateral leg weakness (Acute) Acute kidney injury superimposed on CKD (Acute) Acute cystitis (Acute) 75 year old female CKDIIIa baseline creatinine 1.4-1.5 ischaemia ATN with prerenal initially then ATN with hypertension urgency with Parkinson with low leg weakness -MONICA-ATN gentle IVF -Hold Garry in -HTN urgency hold Norvasc change labetalol 200mg TID, contiue hydralzine -
--- NOTE | 2020-08-05 13:26 | CASEMGMT ---
DENNISE received a call from Amanda at [facility]. SW answered her questions. They can take patient and she will start the pre-cert. DENNISE went to patient's room and let her know that TCU is still full, but [facility] is able to take her. DENNISE told her that she will likely be here until Saturday as she isn't ready today and insurance does not usually work on the weekends. She thanked for letting her know. Plan: d/c to [facility] under skilled level of care pending insurance approval. Kiki POTTER MSW
--- NOTE | 2020-08-05 14:25 | CASEMGMT ---
RN CM Note: Palliative screening tool completed. Pt met criteria for kidney and liver disease. Dr. Virk agreeable to referral, order placed and [facility], Ryanne updated via phone. Information faxed. Angel KEY RN ACM
[2020-08-05] MEDS: hydrALAZINE 50 MG Tablet PO ×2 (15:37→22:02)
[2020-08-05] MEDS: Labetalol 200 MG Tablet PO ×2 (15:37→22:01)
[2020-08-06] VITALS (13 sets, daily range): BP systolic 151–182; BP diastolic 64–90; PULSE 68–82; RESP 16–18; TEMP 36.4–36.8; O2SAT 95–98
[2020-08-06] MEDS: hydrALAZINE 50 MG Tablet PO ×3 (06:09→22:20)
[2020-08-06] MEDS: Labetalol 200 MG Tablet PO ×3 (06:10→22:18)
[2020-08-06] MEDS: Dicyclomine 10 MG Capsule PO ×4 (06:56→22:20)
[2020-08-06 09:23] LABS: Anion Gap 8 (5-15); BUN 39 mg/dL (7-18); BUN/Creat Ratio 12.2 RATIO (10-20); Calcium,Total 8.5 mg/dL (8.5-10.1); Chloride 101 mmol/L (98-107); Creatinine, Serum 3.19 mg/dL (0.55-1.02); EST Glomerular Filtration Rate 15 mL/min (>60); Est Glom Filt Rate - Afr Amer 18 mL/min (>60); Estimated Creatinine Clearance 12.75 ml/min; Glucose 98 mg/dL (74-106); Potassium 4.6 mmol/L (3.5-5.1); Sodium Level 128 mmol/L (136-145)
--- NOTE | 2020-08-06 11:41 | PN_ITS ---
Patient Problems: Active and Suspected Problems Neck pain (Acute) Bilateral leg weakness (Acute) Acute kidney injury superimposed on CKD (Acute) Subjective: Feeling well. Able to tolerate PO, though did not like the oatmeal. Feels that her edema is improving. Vitals/I&O's: Vital Signs Temp Pulse Resp BP Pulse Ox 36.8 C 70 16 151/64 H 95 08/06/20 08:28 08/06/20 08:28 08/06/20 08:28 08/06/20 08:28 08/06/20 08:28 Oxygen Delivery Method Room Air Weight: 79.2 kg Body Mass Index (BMI) 29.9 Finger Stick Blood Glucose 123 Intake and Output for Last 24 Hours 08/04/20 08/05/20 08/06/20 23:59 23:59 23:59 Intake Total 240 / 340 1000 / 1000 Output Total 250 / 250 Balance - 1000 / 1000 General: Alert, No apparent distress HEENT: Atraumatic, Normocephalic Oral: Moist Mucosa, No Gingival or Mucosal Lesions/ Ulcerations Neck: No Nodes, Thyroid Normal Size and Texture Lungs: Clear to auscultation, Normal air movement, No rhonchi, No wheeze Cardiovascular: Regular rate, Regular Rhythm, Normal S1, Normal S2, No murmurs Abdomen: Bowel Sounds Present, Soft, Non Tender, Non-Distended, No Hepato- splenomegaly Extremities: No Calf Tenderness, Edema Skin: No rashes, No breakdown Psych/Mental Status: Normal Affect, Appropriate Laboratory Results 08/04/20 16:50: Eos Smear Total Cells Pending 08/06/20 08:30: Sodium 128 L, Potassium 4.6, Chloride 101, Carbon Dioxide 19.0 L , Anion Gap 8, BUN 39 H, Creatinine 3.19 H, Estim Creat Clear Calc 12.75, Est GFR (MDRD) Af Amer 18 L, Est GFR (MDRD) Non-Af 15 L, BUN/Creatinine Ratio 12.2, Glucose 98, Calcium 8.5 Current Medications Acetaminophen (Acetaminophen 325 Mg Tablet) 650 mg PO Q6H PRN PRN PRN Reason: Pain Score 1-10/Temp > 100.7 F Last Admin: 08/02/20 15:18 Dose: 650 mg Documented by: Cyclobenzaprine HCl (Cyclobenzaprine Hcl 5 Mg Tablet) 5 mg PO TID PRN PRN Reason: tension headache Dicyclomine HCl (Dicyclomine 10 Mg Capsule) 10 mg PO ACHS [facility] Last Admin: 08/06/20 06:56 Dose: 10 mg Documented by: Docusate Sodium (Docusate Sodium 100 Mg Capsule) 100 mg PO BID PRN PRN PRN Reason: Constipation Enoxaparin Sodium (Enoxaparin 30 Mg/0.3 Ml Syringe) 30 mg SC DAILY [facility] Last Admin: 08/05/20 09:32 Dose: 30 mg Documented by: Hydralazine HCl (Hydralazine 20 Mg/Ml Vial) 10 mg IV Q4H PRN PRN PRN Reason: Hypertensive Emergency Last Admin: 08/04/20 00:19 Dose: 10 mg Documented by: Hydralazine HCl (Hydralazine 50 Mg Tablet) 50 mg PO TID [facility] Last Admin: 08/06/20 06:09 Dose: 50 mg Documented by: Sodium Chloride () 500 mls @ 15 mls/hr IV PRN PRN PRN Reason: Blood Transfusion Sodium Chloride () 250 mls @ 15 mls/hr IV .[id number] PRN PRN Reason: Saline Flush Sodium Chloride () 250 mls @ 15 mls/hr IV .[id number] PRN PRN Reason: Additional IVPB Infusion Labetalol HCl (Labetalol (Prefilled) 20 Mg/4 Ml) 20 mg IV Q4H PRN PRN Reason: SBP>190 OR DBP>110 Last Admin: 08/04/20 04:00 Dose: 20 mg Documented by: Labetalol HCl (Labetalol 200 Mg Tablet) 200 mg PO TID [facility] Last Admin: 08/06/20 06:10 Dose: 200 mg Documented by: Melatonin (Melatonin 3 Mg Tablet) 3 mg PO QHS PRN PRN PRN Reason: INSOMNIA Last Admin: 08/02/20 20:53 Dose: 3 mg Documented by: Nitroglycerin (Nitroglycerin (Inpatient Use) 0.4 Mg Tab.Subl) 0.4 mg SL Q5M PRN PRN Reason: CARDIAC/CHEST PAIN Ondansetron HCl (Ondansetron Odt 4 Mg Tablet) 4 mg PO Q6H PRN PRN PRN Reason: NAUSEA Last Admin: 08/02/20 18:04 Dose: 4 mg Documented by: Ondansetron HCl (Ondansetron 4 Mg/2 Ml Vial) 4 mg IV Q8H PRN PRN PRN Reason: NAUSEA/VOMITING Last Admin: 08/02/20 15:23 Dose: 4 mg Documented by: Pantoprazole Sodium (Pantoprazole Sodium 40 Mg Tablet) 40 mg PO BID [facility] Last Admin: 08/05/20 22:01 Dose: 40 mg Documented by: Polyethylene Glycol (Polyethylene Glycol 3350 17 Gm Packet) 17 gm PO DAILY [facility] Last Admin: 08/05/20 09:30 Dose: Not Given Documented by: Potassium Chloride (Potassium Chloride Oral Tablet 20 Meq) 20 meq PO BIDCM [facility] Last Admin: 08/05/20 16:49 Dose: 20 meq Documented by: Psyllium Hydrophilic Mucilloid (Psyllium 1 Packet) 1 packet PO DAILY [facility] Last Admin: 08/05/20 09:30 Dose: Not Given Documented by: Sodium Chloride (0.9% Saline Lock 10 Ml Syringe) 10 - 40 ml IV UD PRN PRN Reason: SALINE FLUSH Last Admin: 08/03/20 05:07 Dose: 10 ml Documented by: STROKE Vital Signs/Narrative: Vital Signs Temp Pulse Resp BP Pulse Ox 08/06/20 08:28 36.8 C 70 16 151/64 H 95 Medical Necessity - Tobacco Use Smoking Status: Never smoker Assessment/Plan All Active Problems Hypertensive urgency (Acute) Neck pain (Acute) Bilateral leg weakness (Acute) Acute kidney injury superimposed on CKD (Acute) Acute cystitis (Acute) 1. Parkinsonism Currently, seems improved, but has steadily worsened. Patient with resting tremor, reported micrographia and shuffling gait. Patient undergo MRI of her cervical and lumbar spine that showed no acute process. Head CT was negative. Patient has progressively getting weaker. 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 Plan: * Seen by [facility] teleneurology who recommend outpatient neurologic evaluation. * Discussed with the patient and her . The ER staff with [facility] physicians and prefer to stay within that network. Since patient has concern for movement disorder, such as Parkinson's, recommend that they follow-up with the [facility] ([phone]). * I have explained that the patient, when she gets sick, or tired will have more exaggerated symptoms and just being physically wiped out. 2. Headache and neck pain improved seems likely was tension headache and migraine Waxes and wanes MRI and MRV negative Plan * PRN cyclobenzaprine 3. lower extremity weakness PT recommends SNF, plan for SNF 4. HTN urgency Improved overall renal artery duplex negative for LESLY. plan * hydralazine down to 50 TID (from 100) * DC clonidine and metoprolol * 08/05: BP still elevated with SBP in 180s. Given her peripheral edema, I am concerned that this is due to amlodipine. Will dc amlodipine and increase labetalol to 200 BID 5. VTE prophylaxis: LMWH 6. disposition: pending BP, home with outpt therapy 7. MONICA worse from 08/03, but stable FENa 0.39%, cw prerenal azotemia nephrology following Inpatient E&M: 29284 Subs Hosp L2
[2020-08-06] MEDS: Potassium Chloride Oral Tablet 20 MEQ PO ×2 (12:22→18:23)
[2020-08-06] MEDS: Enoxaparin 30 MG/0.3 ML Syringe SC (12:22)
[2020-08-06] MEDS: Pantoprazole Sodium 40 MG Tablet PO ×2 (12:22→22:20)
--- NOTE | 2020-08-06 15:47 | PN.RENAL_ITS ---
Patient Problems: Active and Suspected Problems Neck pain (Acute) Bilateral leg weakness (Acute) Acute kidney injury superimposed on CKD (Acute) Subjective: No new complaints - Physical Exam Vitals/I&O's: Vital Signs Temp Pulse Resp BP Pulse Ox 98.1 F 73 16 182/83 H 98 08/06/20 15:16 08/06/20 15:18 08/06/20 15:16 08/06/20 15:16 08/06/20 15:16 Oxygen Delivery Method Room Air Weight: 79.2 kg Body Mass Index (BMI) 29.9 Finger Stick Blood Glucose 123 Intake and Output for Last 24 Hours 08/04/20 08/05/20 08/06/20 23:59 23:59 23:59 Intake Total 240 / 340 1000 / 1000 540 / 540 Output Total 250 / 250 Balance - 1000 / 1000 540 / 540 General: Alert, Oriented x3, Cooperative HEENT: Atraumatic, PERRLA, EOMI, Normocephalic Neck: Supple, No JVD, Negative Carotid Bruits Lungs: Clear to auscultation, Normal air movement Cardiovascular: Regular rate, No murmurs Abdomen: Bowel Sounds Present, Soft, Non Tender Extremities: Capillary Refill Less than 3 Seconds, Edema Skin: No rashes, No breakdown Musculoskeletal: No Tenderness to Palpation of Joints or Extremities Neurological: Cranial nerves II-XII grossly intact Psych/Mental Status: Normal Affect, Appropriate Laboratory Results 08/06/20 08:30: Sodium 128 L, Potassium 4.6, Chloride 101, Carbon Dioxide 19.0 L , Anion Gap 8, BUN 39 H, Creatinine 3.19 H, Estim Creat Clear Calc 12.75, Est GFR (MDRD) Af Amer 18 L, Est GFR (MDRD) Non-Af 15 L, BUN/Creatinine Ratio 12.2, Glucose 98, Calcium 8.5 Current Medications Acetaminophen (Acetaminophen 325 Mg Tablet) 650 mg PO Q6H PRN PRN PRN Reason: Pain Score 1-10/Temp > 100.7 F Last Admin: 08/02/20 15:18 Dose: 650 mg Documented by: Cyclobenzaprine HCl (Cyclobenzaprine Hcl 5 Mg Tablet) 5 mg PO TID PRN PRN Reason: tension headache Dicyclomine HCl (Dicyclomine 10 Mg Capsule) 10 mg PO ACHS [facility] Last Admin: 08/06/20 12:22 Dose: 10 mg Documented by: Docusate Sodium (Docusate Sodium 100 Mg Capsule) 100 mg PO BID PRN PRN PRN Reason: Constipation Enoxaparin Sodium (Enoxaparin 30 Mg/0.3 Ml Syringe) 30 mg SC DAILY [facility] Last Admin: 08/06/20 12:22 Dose: 30 mg Documented by: Furosemide (Furosemide 40 Mg/4 Ml Vial) 40 mg IV X1 ONE Stop: 08/06/20 15:46 Hydralazine HCl (Hydralazine 20 Mg/Ml Vial) 10 mg IV Q4H PRN PRN PRN Reason: Hypertensive Emergency Last Admin: 08/04/20 00:19 Dose: 10 mg Documented by: Hydralazine HCl (Hydralazine 50 Mg Tablet) 50 mg PO TID [facility] Last Admin: 08/06/20 15:18 Dose: 50 mg Documented by: Sodium Chloride () 500 mls @ 15 mls/hr IV PRN PRN PRN Reason: Blood Transfusion Sodium Chloride () 250 mls @ 15 mls/hr IV .[id number] PRN PRN Reason: Saline Flush Sodium Chloride () 250 mls @ 15 mls/hr IV .[id number] PRN PRN Reason: Additional IVPB Infusion Labetalol HCl (Labetalol (Prefilled) 20 Mg/4 Ml) 20 mg IV Q4H PRN PRN Reason: SBP>190 OR DBP>110 Last Admin: 08/04/20 04:00 Dose: 20 mg Documented by: Labetalol HCl (Labetalol 200 Mg Tablet) 200 mg PO TID [facility] Last Admin: 08/06/20 15:19 Dose: 200 mg Documented by: Melatonin (Melatonin 3 Mg Tablet) 3 mg PO QHS PRN PRN PRN Reason: INSOMNIA Last Admin: 08/02/20 20:53 Dose: 3 mg Documented by: Nitroglycerin (Nitroglycerin (Inpatient Use) 0.4 Mg Tab.Subl) 0.4 mg SL Q5M PRN PRN Reason: CARDIAC/CHEST PAIN Ondansetron HCl (Ondansetron Odt 4 Mg Tablet) 4 mg PO Q6H PRN PRN PRN Reason: NAUSEA Last Admin: 08/02/20 18:04 Dose: 4 mg Documented by: Ondansetron HCl (Ondansetron 4 Mg/2 Ml Vial) 4 mg IV Q8H PRN PRN PRN Reason: NAUSEA/VOMITING Last Admin: 08/02/20 15:23 Dose: 4 mg Documented by: Pantoprazole Sodium (Pantoprazole Sodium 40 Mg Tablet) 40 mg PO BID [facility] Last Admin: 08/06/20 12:22 Dose: 40 mg Documented by: Polyethylene Glycol (Polyethylene Glycol 3350 17 Gm Packet) 17 gm PO DAILY [facility] Last Admin: 08/06/20 12:23 Dose: Not Given Documented by: Potassium Chloride (Potassium Chloride Oral Tablet 20 Meq) 20 meq PO BIDCM [facility] Last Admin: 08/06/20 12:22 Dose: 20 meq Documented by: Psyllium Hydrophilic Mucilloid (Psyllium 1 Packet) 1 packet PO DAILY [facility] Last Admin: 08/06/20 12:23 Dose: Not Given Documented by: Sodium Chloride (0.9% Saline Lock 10 Ml Syringe) 10 - 40 ml IV UD PRN PRN Reason: SALINE FLUSH Last Admin: 08/03/20 05:07 Dose: 10 ml Documented by: Medical Necessity - Tobacco Use Smoking Status: Never smoker Assessment/Plan All Active Problems Hypertensive urgency (Acute) Neck pain (Acute) Bilateral leg weakness (Acute) Acute kidney injury superimposed on CKD (Acute) Acute cystitis (Acute) Acute renal failure CKD stage IIIa History of hypertension for about 1 year. Baseline creatinine was about 1.6. She was admitted with a creatinine of 1.97 increased to 3.1 and holding steady f or the last 3 days. Urine analysis shows some protein, white cells, other cellular component. Renal Doppler was negative. No obstructive symptoms. Creatinine is essentially leveled off. ? MONICA related to uncontrolled hypertension Hypertension. Currently on hydralazine and labetalol. Amlodipine was stopped due to concern for lower extremity edema. Still has significant edema. There might be some volume component to hypertension. Will give 1 dose of Lasix to see if this helps. Hyponatremia. Clinically hypervolemic. Trial of Lasix Hypokalemia. On potassium supplements.
[2020-08-06] MEDS: 0.9% Saline Lock 10 ML Syringe IV (16:50)
[2020-08-06] MEDS: Furosemide 40 MG/4 ML Vial IV (16:50)
[2020-08-07] VITALS (14 sets, daily range): BP systolic 152–169; BP diastolic 68–78; PULSE 65–79; RESP 16–18; TEMP 36.5–36.8; O2SAT 95–98
[2020-08-07] MEDS: 0.9% Saline Lock 10 ML Syringe IV (04:01)
[2020-08-07] MEDS: hydrALAZINE 20 MG/ML Vial 10 MG IV (04:01)
[2020-08-07] MEDS: hydrALAZINE 50 MG Tablet PO ×3 (05:27→20:50)
[2020-08-07] MEDS: Labetalol 200 MG Tablet PO ×3 (05:27→20:52)
[2020-08-07] MEDS: Dicyclomine 10 MG Capsule PO ×4 (06:49→20:50)
[2020-08-07 06:53] LABS: Anion Gap 9 (5-15); BUN 34 mg/dL (7-18); BUN/Creat Ratio 10.9 RATIO (10-20); Calcium,Total 8.4 mg/dL (8.5-10.1); Chloride 99 mmol/L (98-107); Creatinine, Serum 3.12 mg/dL (0.55-1.02); EST Glomerular Filtration Rate 15 mL/min (>60); Est Glom Filt Rate - Afr Amer 19 mL/min (>60); Estimated Creatinine Clearance 13.04 ml/min; Glucose 100 mg/dL (74-106); Sodium Level 128 mmol/L (136-145)
[2020-08-07] MEDS: Potassium Chloride Oral Tablet 20 MEQ PO ×2 (08:21→17:12)
[2020-08-07] MEDS: Pantoprazole Sodium 40 MG Tablet PO ×2 (08:22→20:51)
[2020-08-07] MEDS: Enoxaparin 30 MG/0.3 ML Syringe SC (08:23)
--- NOTE | 2020-08-07 09:59 | PN_ITS ---
Patient Problems: Active and Suspected Problems Neck pain (Acute) Bilateral leg weakness (Acute) Acute kidney injury superimposed on CKD (Acute) Subjective: Feeling well. No issues overnight. Still with edema in arms and legs with no significant improvement with furosemide. Vitals/I&O's: Vital Signs Temp Pulse Resp BP Pulse Ox 36.7 C 73 18 159/72 H 98 08/07/20 08:33 08/07/20 08:33 08/07/20 08:33 08/07/20 08:33 08/07/20 08:33 Oxygen Delivery Method Room Air Weight: 79.2 kg Body Mass Index (BMI) 29.9 Finger Stick Blood Glucose 123 Intake and Output for Last 24 Hours 08/05/20 08/06/20 08/07/20 23:59 23:59 23:59 Intake Total 1000 / 1000 1140 / 1140 200 / 200 Output Total 250 / 250 700 / 700 Balance 1000 / 1000 890 / 890 -500 / -500 General: Alert, No apparent distress HEENT: Atraumatic, Normocephalic Lungs: Clear to auscultation, Normal air movement, No rhonchi, No wheeze, No rales Cardiovascular: Regular rate, Regular Rhythm, Normal S1, Normal S2 Abdomen: Bowel Sounds Present, Soft, Non Tender, Non-Distended, No Hepato- splenomegaly Extremities: No Calf Tenderness, Edema - in UE and LE Psych/Mental Status: Normal Affect, Appropriate Laboratory Results 08/07/20 05:50: Sodium 128 L, Potassium 4.0, Chloride 99, Carbon Dioxide 20.0 L, Anion Gap 9, BUN 34 H, Creatinine 3.12 H, Estim Creat Clear Calc 13.04, Est GFR (MDRD) Af Amer 19 L, Est GFR (MDRD) Non-Af 15 L, BUN/Creatinine Ratio 10.9, Glucose 100, Calcium 8.4 L Current Medications Acetaminophen (Acetaminophen 325 Mg Tablet) 650 mg PO Q6H PRN PRN PRN Reason: Pain Score 1-10/Temp > 100.7 F Last Admin: 08/02/20 15:18 Dose: 650 mg Documented by: Cyclobenzaprine HCl (Cyclobenzaprine Hcl 5 Mg Tablet) 5 mg PO TID PRN PRN Reason: tension headache Dicyclomine HCl (Dicyclomine 10 Mg Capsule) 10 mg PO ACHS JORDI Last Admin: 08/07/20 06:49 Dose: 10 mg Documented by: Docusate Sodium (Docusate Sodium 100 Mg Capsule) 100 mg PO BID PRN PRN PRN Reason: Constipation Enoxaparin Sodium (Enoxaparin 30 Mg/0.3 Ml Syringe) 30 mg SC DAILY [facility] Last Admin: 08/07/20 08:23 Dose: 30 mg Documented by: Hydralazine HCl (Hydralazine 20 Mg/Ml Vial) 10 mg IV Q4H PRN PRN PRN Reason: Hypertensive Emergency Last Admin: 08/07/20 04:01 Dose: 10 mg Documented by: Hydralazine HCl (Hydralazine 50 Mg Tablet) 50 mg PO TID [facility] Last Admin: 08/07/20 05:27 Dose: 50 mg Documented by: Sodium Chloride () 500 mls @ 15 mls/hr IV PRN PRN PRN Reason: Blood Transfusion Sodium Chloride () 250 mls @ 15 mls/hr IV .[id number] PRN PRN Reason: Saline Flush Sodium Chloride () 250 mls @ 15 mls/hr IV .[id number] PRN PRN Reason: Additional IVPB Infusion Labetalol HCl (Labetalol (Prefilled) 20 Mg/4 Ml) 20 mg IV Q4H PRN PRN Reason: SBP>190 OR DBP>110 Last Admin: 08/04/20 04:00 Dose: 20 mg Documented by: Labetalol HCl (Labetalol 200 Mg Tablet) 200 mg PO TID [facility] Last Admin: 08/07/20 05:27 Dose: 200 mg Documented by: Melatonin (Melatonin 3 Mg Tablet) 3 mg PO QHS PRN PRN PRN Reason: INSOMNIA Last Admin: 08/02/20 20:53 Dose: 3 mg Documented by: Nitroglycerin (Nitroglycerin (Inpatient Use) 0.4 Mg Tab.Subl) 0.4 mg SL Q5M PRN PRN Reason: CARDIAC/CHEST PAIN Ondansetron HCl (Ondansetron Odt 4 Mg Tablet) 4 mg PO Q6H PRN PRN PRN Reason: NAUSEA Last Admin: 08/02/20 18:04 Dose: 4 mg Documented by: Ondansetron HCl (Ondansetron 4 Mg/2 Ml Vial) 4 mg IV Q8H PRN PRN PRN Reason: NAUSEA/VOMITING Last Admin: 08/02/20 15:23 Dose: 4 mg Documented by: Pantoprazole Sodium (Pantoprazole Sodium 40 Mg Tablet) 40 mg PO BID [facility] Last Admin: 08/07/20 08:22 Dose: 40 mg Documented by: Polyethylene Glycol (Polyethylene Glycol 3350 17 Gm Packet) 17 gm PO DAILY [facility] Last Admin: 08/06/20 12:23 Dose: Not Given Documented by: Potassium Chloride (Potassium Chloride Oral Tablet 20 Meq) 20 meq PO BIDCM [facility] Last Admin: 08/07/20 08:21 Dose: 20 meq Documented by: Psyllium Hydrophilic Mucilloid (Psyllium 1 Packet) 1 packet PO DAILY [facility] Last Admin: 08/06/20 12:23 Dose: Not Given Documented by: Sodium Chloride (0.9% Saline Lock 10 Ml Syringe) 10 - 40 ml IV UD PRN PRN Reason: SALINE FLUSH Last Admin: 08/07/20 04:01 Dose: 10 ml Documented by: STROKE Vital Signs/Narrative: Vital Signs Temp Pulse Resp BP BP Pulse Ox 08/07/20 08:33 36.7 C 73 18 159/72 H 98 08/07/20 07:25 73 08/07/20 06:48 75 154/68 H Medical Necessity - Tobacco Use Smoking Status: Never smoker Assessment/Plan All Active Problems Hypertensive urgency (Acute) Neck pain (Acute) Bilateral leg weakness (Acute) Acute kidney injury superimposed on CKD (Acute) Acute cystitis (Acute) 75-year-old female presents with neck pain. Essentially neck pain seem to be more tension type headache. Patient's hospitalization has been complicated by profoundly difficult to control hypertension and medications have been adjusted and have helped control her blood pressure. Patient also developed acute kidney injury but seems to have stabilized. Nephrology following. Patient also has Parkinson type symptoms and did have patient see neurology. Patient recommended to follow-up with outpatient neurology. I have [facility] as a prefer to stay within the [facility]. Plan is for the patient go to a half-way facility upon discharge. 1. Parkinsonism Currently, seems improved, but has steadily worsened over time. Patient with resting tremor, reported micrographia and shuffling gait. Patient undergo MRI of her cervical and lumbar spine that showed no acute process. Head CT was negative. Patient has progressively getting weaker. 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 Plan: * Seen by [facility] teleneurology who recommend outpatient neurologic evaluation. * Discussed with the patient and her . The ER staff with [facility] physicians and prefer to stay within that network. Since patient has concern for movement disorder, such as Parkinson's, recommend that they follow-up with [facility] ([phone]). * I have explained that the patient, when she gets sick, or tired will have more exaggerated symptoms and just being physically wiped out. 2. Headache and neck pain improved seems likely was tension headache and migraine Waxes and wanes MRI and MRV negative Plan * PRN cyclobenzaprine 3. lower extremity weakness PT recommends SNF, plan for SNF 4. HTN urgency Improved overall renal artery duplex negative for LESLY. plan * hydralazine down to 50 TID (from 100) * DC clonidine and metoprolol * 08/05: BP still elevated with SBP in 180s. Given her peripheral edema, I am concerned that this is due to amlodipine. Will dc amlodipine and increase labetalol to 200 BID 5. VTE prophylaxis: LMWH 6. disposition: pending BP, home with outpt therapy 7. MONICA worse from 08/03, but stable FENa 0.39%, cw prerenal azotemia nephrology following Inpatient E&M: [id number] Subs Hosp L2
[2020-08-08] VITALS (14 sets, daily range): BP systolic 141–182; BP diastolic 55–72; PULSE 69–76; RESP 15–18; TEMP 36.6–36.9; O2SAT 96–97
[2020-08-08] MEDS: hydrALAZINE 20 MG/ML Vial 10 MG IV (02:57)
[2020-08-08] MEDS: 0.9% Saline Lock 10 ML Syringe IV (02:57)
[2020-08-08] MEDS: hydrALAZINE 50 MG Tablet PO (06:18)
[2020-08-08] MEDS: Labetalol 200 MG Tablet PO ×3 (06:18→22:01)
[2020-08-08] MEDS: Dicyclomine 10 MG Capsule PO ×4 (06:18→22:01)
[2020-08-08] MEDS: Potassium Chloride Oral Tablet 20 MEQ PO ×2 (08:50→17:15)
[2020-08-08] MEDS: Psyllium 1 PACKET PO (08:50)
[2020-08-08] MEDS: Pantoprazole Sodium 40 MG Tablet PO ×2 (08:50→22:01)
[2020-08-08] MEDS: Enoxaparin 30 MG/0.3 ML Syringe SC (08:50)
[2020-08-08] MEDS: Polyethylene Glycol 3350 17 GM PACKET PO (08:50)
--- NOTE | 2020-08-08 08:57 | CASEMGMT ---
Updates were sent to [place] so they can get pre-cert. Kiki Cheema RAFTER CUTTING MACHINE OPERATOR FLUSH TESTER
--- NOTE | 2020-08-08 12:29 | PCM.PN.REN ---
Patient Problems: Active and Suspected Problems Neck pain (Acute) Bilateral leg weakness (Acute) Acute kidney injury superimposed on CKD (Acute) Subjective: no new complaints - Physical Exam Vitals/I&O's: Vital Signs Temp Pulse Resp BP Pulse Ox 97.9 F 69 16 149/70 H 96 08/08/20 08:50 08/08/20 08:50 08/08/20 08:50 08/08/20 08:50 08/08/20 08:50 Oxygen Delivery Method Room Air Weight: 79.2 kg Body Mass Index (BMI) 29.9 Finger Stick Blood Glucose 123 Intake and Output for Last 24 Hours 08/06/20 08/07/20 08/08/20 23:59 23:59 23:59 Intake Total 1140 / 1140 1650 / 1650 450 / 450 Output Total 250 / 250 700 / 700 Balance 890 / 890 950 / 950 450 / 450 General: Alert, Oriented x3, Cooperative HEENT: Atraumatic, PERRLA, EOMI, Normocephalic Neck: Supple, No JVD, Negative Carotid Bruits Lungs: Clear to auscultation, Normal air movement Cardiovascular: Regular rate, No murmurs Abdomen: Bowel Sounds Present, Soft, Non Tender Extremities: Capillary Refill Less than 3 Seconds, Edema Skin: No rashes, No breakdown Musculoskeletal: No Tenderness to Palpation of Joints or Extremities Neurological: Cranial nerves II-XII grossly intact Psych/Mental Status: Normal Affect, Appropriate Current Medications Acetaminophen (Acetaminophen 325 Mg Tablet) 650 mg PO Q6H PRN PRN PRN Reason: Pain Score 1-10/Temp > 100.7 F Last Admin: 08/02/20 15:18 Dose: 650 mg Documented by: Bumetanide (Bumetanide 2 Mg Tablet) 2 mg PO DAILY [facility] Cyclobenzaprine HCl (Cyclobenzaprine Hcl 5 Mg Tablet) 5 mg PO TID PRN PRN Reason: tension headache Dicyclomine HCl (Dicyclomine 10 Mg Capsule) 10 mg PO ACHS [facility] Last Admin: 08/08/20 10:44 Dose: 10 mg Documented by: Docusate Sodium (Docusate Sodium 100 Mg Capsule) 100 mg PO BID PRN PRN PRN Reason: Constipation Enoxaparin Sodium (Enoxaparin 30 Mg/0.3 Ml Syringe) 30 mg SC DAILY [facility] Last Admin: 08/08/20 08:50 Dose: 30 mg Documented by: Hydralazine HCl (Hydralazine 20 Mg/Ml Vial) 10 mg IV Q4H PRN PRN PRN Reason: Hypertensive Emergency Last Admin: 08/08/20 02:57 Dose: 10 mg Documented by: Hydralazine HCl (Hydralazine 50 Mg Tablet) 100 mg PO TID [facility] Sodium Chloride () 500 mls @ 15 mls/hr IV PRN PRN PRN Reason: Blood Transfusion Sodium Chloride () 250 mls @ 15 mls/hr IV .[id number] PRN PRN Reason: Saline Flush Sodium Chloride () 250 mls @ 15 mls/hr IV .[id number] PRN PRN Reason: Additional IVPB Infusion Labetalol HCl (Labetalol (Prefilled) 20 Mg/4 Ml) 20 mg IV Q4H PRN PRN Reason: SBP>190 OR DBP>110 Last Admin: 08/04/20 04:00 Dose: 20 mg Documented by: Labetalol HCl (Labetalol 200 Mg Tablet) 200 mg PO TID [facility] Last Admin: 08/08/20 06:18 Dose: 200 mg Documented by: Melatonin (Melatonin 3 Mg Tablet) 3 mg PO QHS PRN PRN PRN Reason: INSOMNIA Last Admin: 08/02/20 20:53 Dose: 3 mg Documented by: Nitroglycerin (Nitroglycerin (Inpatient Use) 0.4 Mg Tab.Subl) 0.4 mg SL Q5M PRN PRN Reason: CARDIAC/CHEST PAIN Ondansetron HCl (Ondansetron Odt 4 Mg Tablet) 4 mg PO Q6H PRN PRN PRN Reason: NAUSEA Last Admin: 08/02/20 18:04 Dose: 4 mg Documented by: Ondansetron HCl (Ondansetron 4 Mg/2 Ml Vial) 4 mg IV Q8H PRN PRN PRN Reason: NAUSEA/VOMITING Last Admin: 08/02/20 15:23 Dose: 4 mg Documented by: Pantoprazole Sodium (Pantoprazole Sodium 40 Mg Tablet) 40 mg PO BID [facility] Last Admin: 08/08/20 08:50 Dose: 40 mg Documented by: Polyethylene Glycol (Polyethylene Glycol 3350 17 Gm Packet) 17 gm PO DAILY [facility] Last Admin: 03/22/21 08:50 Dose: 17 gm Documented by: Potassium Chloride (Potassium Chloride Oral Tablet 20 Meq) 20 meq PO BIDCM [facility] Last Admin: 08/08/20 08:50 Dose: 20 meq Documented by: Psyllium Hydrophilic Mucilloid (Psyllium 1 Packet) 1 packet PO DAILY [facility] Last Admin: 08/08/20 08:50 Dose: 1 packet Documented by: Sodium Chloride (0.9% Saline Lock 10 Ml Syringe) 10 - 40 ml IV UD PRN PRN Reason: SALINE FLUSH Last Admin: 08/08/20 02:57 Dose: 10 ml Documented by: Medical Necessity - Tobacco Use Smoking Status: Never smoker Assessment/Plan All Active Problems Hypertensive urgency (Acute) Neck pain (Acute) Bilateral leg weakness (Acute) Acute kidney injury superimposed on CKD (Acute) Acute cystitis (Acute) Acute renal failure CKD stage IIIa History of hypertension for about 1 year. Baseline creatinine was about 1.6. She was admitted with a creatinine of 1.97 increased to 3.1 and holding steady for the last 5 days. Urine analysis shows some protein, white cells, other cellular component. Renal Doppler was negative. No obstructive symptoms. Creatinine is essentially leveled off. ? MONICA related to uncontrolled hypertension. repeat UA and if still active will send serologies. Hypertension. Currently on hydralazine and labetalol. Amlodipine was stopped due to concern for lower extremity edema. Still has significant edema. There might be some volume component to hypertension. add oral daily bumex for now Hyponatremia. Clinically hypervolemic. add bumex Hypokalemia. On potassium supplements.
--- NOTE | 2020-08-08 13:05 | CASEMGMT ---
SW spoke with patient and her . SW answered their questions. SW let them know patient will have to quarantine for 14 days which means no visitors. Patient was upset about the quarantine. SW asked if she feels like she is doing well enough that she could go home. She said there is no way she could go home right now. SW told them when DENNISE hears from [place] SW will let them know. Plan: [place] pending pre-cert. Kiki POTTER REAL ESTATE ATTORNEY
[2020-08-08] MEDS: hydrALAZINE 50 MG Tablet 100 MG PO ×2 (14:28→22:00)
--- NOTE | 2020-08-08 15:35 | PCM.CONS.P ---
Problem List (1) Bilateral leg weakness Status: Acute (2) Chronic abdominal pain Status: Chronic (3) Neck pain Status: Acute (4) Stage III chronic kidney disease Status: Chronic (5) Irritable bowel syndrome Status: Chronic (6) Hypertension Status: Chronic (7) GERD (gastroesophageal reflux disease) Status: Chronic History of Present Illness Date of Consult: 08/08/20 Reason for Consult: debility, ESRD Requesting physician: [] Primary care physician: Dr. Nohemi Cardoza MD - History of Present Illness The patient is a 75 year old F with past medical history as below, presented to the ED with complaints of neck pain for several days. She was seen in the ED 5 days prior with strokelike symptoms and underwent evaluation, which was negative. She had a hypertensive crisis of blood pressure 241/107, her meds were adjusted and she was discharged home. Upon return to the ED, most of her neck pain was on the left side, accompanied by numbness and lower extremity weakness. She was admitted to the progressive care unit for further evaluation and management, found to have MONICA. C-spine MRI showed multilevel disc disease with mild central canal narrowing C5-6 and C6-7, multilevel mild/moderate neural foraminal narrowing most severe at C3-4. There was also cervical straightening with mild osteoarthritis predominating at C5-6 and C6-7. Grade 1 spondylolisthesis at C4-5 and C5-6 with facet joint arthrosis, a small nonspecific left atlantoaxial joint effusion, and an unchanged nonspecific empty sella sign. Lumbar spine MRI also showed multilevel intervertebral disc disease with mild central canal narrowing at L3-L4, multilevel neural foraminal narrowing without impingement, right lateral recess narrowing without impingement at L3-4, multi level facet joint arthrosis with grade 1 spondylolisthesis at L4-5, and mild asymmetric left renal parenchymal atrophy. Neurology was consulted and ordered MRI of the brain, which showed involutional changes (findings c/w moderate chronic white matter ischemic changes), no acute infarct. She also had a renal artery duplex due to the hypertension, showed less than 60% stenosis bilateral renal arteries but was limited study. It was noted that the study was technically difficult and limited. Given her uncontrolled hypertension, hospitalist discontinued clonidine and metoprolol, hydralazine maximized, and amlodipine discontinued. The increase labetalol to 200 mg twice daily. Nephrology was consulted and recommended gentle IVF, hold JAMARI-I, and hold Norvasc but increase labetalol to 200 mg 3 times daily. Patient has had some episodes of dyspnea with acute onset, once supplemental oxygen applied, this resolved. She has edema in her arms and legs with no significant improvement with furosemide. Noted to have Parkinson type symptoms, it was recommended she follow-up as an outpatient with neurology. She does have a resting tremor, reported micrographia, and a shuffling gait. It was recommended that she follow-[facility] with [facility] since concern for movement disorder. She is taking as needed cyclobenzaprine for her headache and neck pain. Patient lives at home with her , they have no children. She has lived all over [place] [facility], [place] were thinking about moving back to [place] or [place]. Discussed palliative care services and patient declined at this time, states her and her live private lives and do not like anyone coming into their home. Offered social work to assist navigating through her current health status, or telehealth visits as well from nursing, again declines. Patient Problems: Chronic Problems Stage III chronic kidney disease (Chronic) Irritable bowel syndrome (Chronic) Hypertension (Chronic) GERD (gastroesophageal reflux disease) (Chronic) Chronic abdominal pain (Chronic) Surgical History: appendectomy, cholecystectomy, hysterectomy, tonsillectomy, - - Salpingoophorectomy Psychiatric History: No pertinent psych hx Home Medications: Ambulatory Orders Medication Instructions Recorded Metoprolol Tartrate [Lopressor 12.5 mg PO BID #30 tab 04/06/19 (beta dread)] Ondansetron [Zofran Odt] 4 mg PO Q6H PRN PRN #112 tab 04/06/19 Docusate Sodium [Colace] 100 mg PO BID PRN PRN #20 cap 04/13/19 Lansoprazole [Prevacid] 30 mg PO DAILY 04/27/19 Polyethylene Glycol 3350 [Miralax] 17 g PO DAILY 04/27/19 Psyllium [Metamucil] 1 packet PO DAILY 04/27/19 Amlodipine [Norvasc] 10 mg PO DAILY 07/26/20 Dicyclomine HCl [Bentyl] 10 mg PO ACHS 07/31/20 Fiorinal 50-325-40 mg Capsule 40 mg PO Q4H PRN 07/31/20 Allergies codeine Allergy (Verified 07/31/20 10:28) Nausea NARCOTICS Adverse Reaction (Uncoded 07/31/20 10:28) Upset Stomach Maternal History Items: Heart Disease, Stroke Paternal History Items: Heart Disease - Social History Lives: Spouse/ Significant Other Smoking Status: Never smoker Tobacco Use: Non-smoker Alcohol: None Drugs: None Code Status: Full Code Review of Systems Constitutional: Reports: Malaise, Weakness, Fatigue. Denies: Chills, Fever, Weight Change Eyes: Denies: Vision Change HEENT: Denies: Difficulty Swallowing, Head Aches, Nasal Congestion, Sinus Congestion, Sinus Drainage, Sore Throat Cardiovascular: Reports: Edema. Denies: Chest Pain, Palpitations Respiratory: Reports: Shortness of breath upon exertion. Denies: Cough, Shortness of breath at rest, Sputum production, Wheezing Gastrointestinal: Denies: Abdominal Pain, Constipation, Diarrhea, Nausea, Vomiting Genitourinary: Denies: Dysuria, Retention Musculoskeletal: Reports: Joint Pain, Neck Pain. Denies: Joint Tenderness Skin: Denies: Rash, Wounds Neurological: Reports: Tremor - resting, mild today. Denies: Change in Speech, Focal weakness, Numbness, Tingling Psychiatric: Reports: Anxiety. Denies: Depression, Homicidal Ideations, Suicidal Ideations Hematologic/ Lymphatic: Denies: Easy Bruising, Easy Bleeding Physical Exam Subjective: Patient lying in bed, no complaints. She is somewhat tearful regarding her situation. States she and her lead private lives and do not want anyone coming into their home. General: Alert, Oriented x3, Cooperative, No apparent distress HEENT: Atraumatic, Normocephalic Oral: Moist Mucosa Neck: Supple, Trachea Midline Lungs: Clear to auscultation Cardiovascular: Regular rate, Regular Rhythm, Normal S1, Normal S2 Abdomen: Bowel Sounds Present, Non Tender, Obese Extremities: No clubbing, No cyanosis, Edema Skin: No rashes, No breakdown Musculoskeletal: No Tenderness to Palpation of Joints or Extremities Neurological: Cranial nerves II-XII grossly intact Psych/Mental Status: Appropriate Objective: Vital Signs Temp Pulse Resp BP Pulse Ox 97.9 F 73 16 149/70 H 96 08/08/20 08:50 08/08/20 14:28 08/08/20 08:50 08/08/20 08:50 08/08/20 08:50 Oxygen Delivery Method Room Air Weight: 79.2 kg Body Mass Index (BMI) 29.9 Finger Stick Blood Glucose 123 Intake and Output for Last 24 Hours 08/06/20 08/07/20 08/08/20 23:59 23:59 23:59 Intake Total 1140 / 1140 1650 / 1650 450 / 450 Output Total 250 / 250 700 / 700 400 / 400 Balance 890 / 890 950 / 950 50 / 50 Assessment/Plan All Active Problems Hypertensive urgency (Acute) Neck pain (Acute) Bilateral leg weakness (Acute) Acute kidney injury superimposed on CKD (Acute) Acute cystitis (Acute) 75-year-old female with progressive debility and movement disorder, seen today for palliative care consultation regarding her weakness and end-stage renal disease. 1. Debility/LE weakness/movement disorder: Originally was going to go home at [place], now going to SNF for rehab as she is too weak, progressing. She will also follow-up as an outpatient with specialist and movement disorders. Await recommendations. Her medications have been adjusted while in the hospital. Declines palliative f/u. 2. Neck pain: Improving, has cyclobenzaprine 5 mg TID and Tylenol 650 mg 2 tabs every 6h PRN, effective. No recommendations to change meds at this time. 3. Resistant hypertensionAKI/GERD/chronic abdominal pain/IBS/stage III CKD: Complicates overall care, management, recovery, and prognosis. Defer management to specialists and PCP/IMS. Thank you for the opportunity to participate in this patient's care, please do not hesitate to contact [facility] with any further questions or concerns. Palliative direct line is [phone]. Patient declines follow-up with palliative at this time, left information for her to contact us if needs arise or if she feels she is ready to discuss services in greater detail. Greater than 50% of visit dedicated to education and counseling of palliative care services, comorbidities, plan of care moving forward regarding movement disorder and hypertension, medications, and coordination of care. This note was generated with [employer] software. It may contain incorrect words, spelling, and punctuation that were not noted in checking the note before signing.
[2020-08-08 18:38] LABS: Eosinophil Ct. Urine No Eosinophils Seen % (.)
[2020-08-08 22:17] LABS: Mucous, Urine 0 SEEN /hpf (<or=2+); Red Blood Cells-Urine 0 SEEN /hpf (0-5)
[2020-08-08 22:18] LABS: Color, Urine Yellow (Yellow); Glucose, Dipstick Normal (Normal); Ketone-Dipstick Negative (Negative); Leukocyte Esterase-Dipstick 500 /ul (Negative); Nitrite-Dipstick Negative (Negative); Occult Blood-Urine 25 /ul (Negative); Protein-Dipstick 100 mg/dl (Negative); Urine Bilirubin Dipstick Negative (Negative); Urine Clarity Sl. Cloudy (Clear); Urine Urobilinogen Normal (Normal); Urine pH 6.5 (5.0 - 8.0)
[2020-08-08 22:28] LABS: Bacteria 4+ /hpf (None Seen); White Blood Cells 50-100 SEEN /hpf (0-5)
[2020-08-08 22:29] LABS: Squamous Epithelial Cells - UA 0 SEEN /hpf (5-10)
[2020-08-09] VITALS (9 sets, daily range): BP systolic 153–165; BP diastolic 69–79; PULSE 68–79; RESP 14–18; TEMP 36.7–36.8; O2SAT 95–97
[2020-08-09 05:59] LABS: Absolute Lymphocyte Count 0.56 X10^3/uL (0.83-4.51); Absolute Neutrophil Count 4.6 X10^3/uL (2.0-7.7); Basophil# 0.03 X10^3/uL; Basophil% 0.5 % (0-1); Eosinophil# 0.17 X10^3/uL; Eosinophils% 2.8 % (0-5); Hematocrit 32.8 % (37-47); Hemoglobin 11.1 g/dL (12.0-15.0); Lymphocyte # 0.56 X10^3/ul (4.0); Lymphocyte % 9.3 % (19-41); Mean Corp Hgb Conc 33.8 g/dL (32-36); Mean Corpuscular Hgb 31.1 pg (27.0-32.0); Mean Corpuscular Volume 91.9 fL (81-99); Mean Platelet Vol. 10.6 fl (6.2-12.0); Monocyte# 0.68 X10^3/uL; Monocyte% 11.2 % (0-10); NRBC Flagged by Analyzer 0 % (0-5); Neutrophil # 4.57 X10^3/uL (2.7-7.7); Neutrophil % 75.5 % (47-70); POSITIVE DIFFERENTIAL YES; Platelet Count 238 K/mm3 (150-450); RBC Distribution Width CV 14.3 % (11.6-14.6); RBC Distribution Width SD 47.9 fl (35.1-43.9); Red Blood Count 3.57 M/mm3 (4.2-5.4); White Blood Count 6.1 K/mm3 (4.4-11.0)
[2020-08-09 06:02] LABS: Differential Indicated SCAN CRITERIA MET
[2020-08-09] MEDS: Dicyclomine 10 MG Capsule PO ×2 (06:25→11:48)
[2020-08-09] MEDS: hydrALAZINE 50 MG Tablet 100 MG PO ×2 (06:25→13:07)
[2020-08-09] MEDS: Labetalol 200 MG Tablet PO (06:26)
[2020-08-09 06:27] LABS: Anion Gap 8 (5-15); BUN 27 mg/dL (7-18); BUN/Creat Ratio 8.7 RATIO (10-20); Calcium,Total 8.4 mg/dL (8.5-10.1); Chloride 103 mmol/L (98-107); Creatinine, Serum 3.11 mg/dL (0.55-1.02); EST Glomerular Filtration Rate 15 mL/min (>60); Est Glom Filt Rate - Afr Amer 19 mL/min (>60); Estimated Creatinine Clearance 13.08 ml/min; Glucose 101 mg/dL (74-106); Potassium 4.5 mmol/L (3.5-5.1); Sodium Level 133 mmol/L (136-145)
[2020-08-09] MEDS: Enoxaparin 30 MG/0.3 ML Syringe SC (08:27)
[2020-08-09] MEDS: Psyllium 1 PACKET PO (08:27)
[2020-08-09] MEDS: Polyethylene Glycol 3350 17 GM PACKET PO (08:27)
[2020-08-09] MEDS: Bumetanide 2 MG Tablet PO (08:27)
[2020-08-09] MEDS: Potassium Chloride Oral Tablet 20 MEQ PO (08:28)
[2020-08-09] MEDS: Pantoprazole Sodium 40 MG Tablet PO (08:28)
[2020-08-09] MEDS: Amox/Clavulanate 875 MG Tablet PO (10:01)
--- NOTE | 2020-08-09 10:19 | CASEMGMT ---
SW received a call from [place] and patient was denied SNF level of care. SW spoke with physician and she does not feel a peer to peer is warranted as patient is doing much better. SW spoke with patient and let her know her insurance denied SNF level of care. SW told her they feel she is doing too well for SNF and would be more appropriate with home health or outpatient therapy. She asked if she can go home now. DENNISE told her physician will discharge her today. SW asked if she has a walker and she does not. She did not know which walker she wanted wheeled, rollator etc. She asked how to do steps with a walker. SW told her she needs to talk with therapy regarding this and which walker is best. She does not want home health, they are private people. She said she would rather do outpatient therapy. DENNISE gave her list of [employer] [facility]. She wanted to talk with her . She said she will likely go to [facility]. DENNISE told her SW will check back with her. Plan: Patient was denied for SNF. She will likely go home with a walker and outpatient therapy. DENNISE is waiting on her to talk with her . Kiki Cheema MOTOR LODGE CLERK ABBEY
--- NOTE | 2020-08-09 10:27 | DCINST_ITS ---
- Discharge Diagnoses Current Active Problems: Current Active and Chronic Problems Neck pain (Acute) Bilateral leg weakness (Acute) Acute kidney injury superimposed on CKD (Acute) Stage III chronic kidney disease (Chronic) Irritable bowel syndrome (Chronic) Hypertension (Chronic) GERD (gastroesophageal reflux disease) (Chronic) Chronic abdominal pain (Chronic) You will use the following diet at home:: Renal (restricted protein/sodium) - 2- 3 gm sodium per day Your food should be the consistency of: Regular Your liquids should be the consistency of: Regular/Thin Discharge Activity: Return to Normal Activity Allergies/Adverse Reactions: Allergies codeine Allergy (Verified 07/31/20 10:28) Nausea NARCOTICS Adverse Reaction (Uncoded 07/31/20 10:28) Upset Stomach Medications to take at Discharge Ondansetron [Zofran Odt] 4 mg PO Q6H PRN PRN #112 tab 04/06/19 Docusate Sodium [Colace] 100 mg PO BID PRN PRN #20 cap 04/13/19 Lansoprazole [Prevacid] 30 mg PO DAILY 04/27/19 Polyethylene Glycol 3350 [Miralax] 17 g PO DAILY 04/27/19 Psyllium [Metamucil] 1 packet PO DAILY 04/27/19 Dicyclomine HCl [Bentyl] 10 mg PO ACHS 07/31/20 Fiorinal 50-325-40 mg Capsule 40 mg PO Q4H PRN 07/31/20 Bumetanide [Bumex] 2 mg PO DAILY #30 tablet 08/09/20 Potassium Chloride Oral Tablet [K-Dur] 20 meq PO DAILY #30 tablet 08/09/20 cycloBENZAPRine HCl [Cyclobenzaprine HCl] 5 mg PO TID PRN 30 Days #90 tablet 08/09/20 hydrALAZINE [Apresoline] 100 mg PO TID 30 Days #180 tablet 08/09/20 The following prescriptions were given: hydrALAZINE [Apresoline] 100 mg PO TID 30 Days #180 tablet Transmission Status: Pending to [facility] Bumetanide [Bumex] 2 mg PO DAILY #30 tablet Transmission Status: Pending to [facility] cycloBENZAPRine HCl [Cyclobenzaprine HCl] 5 mg PO TID PRN 30 Days #90 tablet PRN Reason: tension headache Transmission Status: Pending to [facility] Potassium Chloride Oral Tablet [K-Dur] 20 meq PO DAILY #30 tablet Transmission Status: Pending to [facility] Primary Care Physician: Nohemi Cardoza MD [Primary Care Provider] - Please follow up with your Primary Care Physician in: 1 week please call for appt today Test Results: Test results from this visit will be discussed in further detail at your follow- up appointment, if applicable. Please Follow Up With: Darrius Castro MD - [employer] Counter[employer] Installer When: 4-6 weeks Please Follow Up With: [facility] - concern for movement disorder When: 2-6 weeks [phone]
--- NOTE | 2020-08-09 10:32 | PCM.DC.SUM ---
Discharge Date and Diagnosis - Problem List Patient Problems: Active and Suspected Problems Neck pain (Acute) Bilateral leg weakness (Acute) Acute kidney injury superimposed on CKD (Acute) Date of Admission: 08/08/20 Date of Discharge: 08/09/20 - Primary Discharge Diagnosis Acute Problems: Active Problems Neck pain (Acute) Bilateral leg weakness (Acute) Acute kidney injury superimposed on CKD (Acute) - Secondary Discharge Diagnosis Chronic Problems: Chronic Problems Stage III chronic kidney disease (Chronic) Irritable bowel syndrome (Chronic) Hypertension (Chronic) GERD (gastroesophageal reflux disease) (Chronic) Chronic abdominal pain (Chronic) Hospital Course and Treatment Imaging Results: STUDY: MRI CERVICAL SPINE WITHOUT CONTRAST REASON FOR EXAM: Female, 75 years old. radiculopathy TECHNIQUE: Standardized fat and water weighted pulse sequences were obtained in the sagittal and axial planes. COMPARISON: 03/10/2019 FINDINGS: Normal foramen magnum. Normal craniovertebral junction. Atlantoaxial articulation intact with nonspecific left-sided joint effusion. Odontoid intact. Unchanged nonspecific empty sella sign. Cervical straightening. No significant scoliosis. Mild facet joint arthrosis. No abnormal cord signal. Symmetric vascular flow voids given technique. C2-3: Normal endplates. Central disc protrusion. Normal central canal. Mild neural foraminal narrowing. C3-4: Normal endplates. Central disc protrusion. Normal central canal. Moderate bilateral neural foraminal narrowing. C4-5: Normal endplates. Disc/osteophyte complex. Tiny central protrusion. Minimal grade 1 spondylolisthesis. Mild left neural foraminal narrowing. Normal right neural foramina. C5-6: Mild endplate spondylosis. Disc/osteophyte complex. Mild ventral cord contact. Mild neural foramina narrowing. Grade 1 spondylolisthesis. C6-7: Mild endplate spondylosis. Disc/osteophyte complex. Mild ventral cord contact. Mild neural foraminal narrowing. C7-T1: Normal endplates. Normal disc height, signal and morphology. Normal central canal and intervertebral neural foramina. MRI/Spine Cervical (Routine) IMPRESSION: No abnormal cord signal Multilevel intervertebral disc disease with mild central canal narrowing at C5-6 and C6-7 Multilevel mild/moderate neural foraminal narrowing most severe at C3-4 Cervical straightening with mild osteoarthritis predominating at C5-6 and C6-7 Grade 1 spondylolisthesis at C4-5 and C5-6 with facet joint arthrosis Small nonspecific left atlantoaxial joint effusion Unchanged nonspecific empty sella sign STUDY: MRI LUMBAR SPINE WITHOUT CONTRAST REASON FOR EXAM: Female, 75 years old. radiculopathy TECHNIQUE: Standardized fat and water weighted pulse sequences were obtained in the sagittal and axial planes. COMPARISON: None FINDINGS: Lumbar lordosis maintained. No significant scoliosis. Conus medullaris terminates normally at the L1 level. No acute fracture, dislocation or cortical destruction. Paraspinal muscle atrophy. Sacrum intact. Normal aorta. Mild asymmetric left renal parenchymal atrophy. T12-L1: Normal endplates. Normal disc height, hydration and morphology. Normal bilateral facet joints. Normal central canal and bilateral lateral recesses. Normal bilateral intervertebral neural foramina. L1-2: Normal endplates. Disc desiccation. Normal bilateral facet joints. Normal central canal and bilateral lateral recesses. Normal bilateral intervertebral neural foramina. L2-3: Normal endplates. Shallow bilobed disc bulge. Facet joint arthrosis. Normal central canal and bilateral lateral recesses. Minimal neural foraminal narrowing. L3-4: Mild endplate spondylosis. Asymmetric disc bulge with mild central canal narrowing. Facet joint arthrosis. Right lateral recess narrowing without impingement. Bilateral neural foraminal narrowing without impingement. L4-5: Normal endplates. Shallow disc bulge. Facet joint arthrosis. Normal central canal and bilateral lateral recesses. Bilateral neural foraminal narrowing without impingement. Minimal grade 1 spondylolisthesis. L5-S1: Normal endplates. Normal disc height, hydration and morphology. Facet joint arthrosis. Normal central canal and bilateral lateral recesses. Minimal neural foraminal narrowing. MRI/Spine Lumbar (Routine) IMPRESSION: Multilevel intervertebral disc disease with mild central canal narrowing at L3-4 Multilevel neural foraminal narrowing without impingement Right lateral recess narrowing without impingement at L3-4 Multilevel facet joint arthrosis with grade 1 spondylolisthesis at L4-5 Mild asymmetric left renal parenchymal atrophy (cortical medical history) TUDY: MRI BRAIN WITHOUT CONTRAST REASON FOR EXAM: Female, 75 years old. headache TECHNIQUE: Standardized multiplanar fat and water weighted pulse sequences were obtained. COMPARISON: CT 07/26/2020, MRI 03/10/2019 FINDINGS: There is mild cerebral atrophy with widening of the extra-axial spaces and ventricular dilatation. There are multiple white matter hyperintensities, distributed throughout the deep white matter tracts of the cerebral hemispheres, consistent with moderate chronic white matter ischemic changes. There is no evidence for recent intracranial ischemia or other cause of cytotoxic edema on diffusion weighted imaging (DWI). Normal T2* images of the brain without demonstrated susceptibility artifact. There is no demonstrated hemosiderin stain. Normal bilateral basal ganglia. Normal thalami. There is no extra-axial fluid accumulation. Normal flow voids within the major intracranial circulation suggesting patency by spin echo criteria. There is enlargement of the sella turcica with increased CSF within the sella and flattening of the pituitary gland consistent with an empty sellar syndrome. Normal infundibular stalk, hypothalamus, and optic chiasm. Normal tectal plate and pineal gland. Normal midbrain, deanne and medulla. Normal cerebellum. Normal basal cisterns. There is mild chronic otomastoiditis of the left temporal bone. Normal bilateral internal auditory canals. No demonstrated orbital abnormality, within the constraints of a routine brain study. Normal visualized paranasal sinuses. Normal calvarium and skull base. Normal visualized soft tissue structures. Normal visualized upper cervical spine. MRI/Brain without Contrast IMPRESSION: Involutional changes of the brain, as described above. No acute infarct. Reason For Study: HTN, Uncontrolled Right Renal Artery Left Renal Artery Right renal artery ostium 59.7/11.8 Left renal artery distal 47.4/10.6 RSV/EDV. PSV/EDV. Right renal artery proximal Unable to visualize left renal 57.4/6.9 PSV/EDV. artery due to bowel gas and renal Right renal artery mid 45.2/7 placement. PSV/EDV. Left Renal Parenchyma Right renal artery distal 52.6/6.2 Left upper pole medulla 15.9/4.2 PSV/EDV. PSV/EDV . Right Renal Parenchyma Left upper pole medulla EDR 0.27 . Upper Pole Medula 16.3/5.3 PSV/EDV. Left upper pole medulla R.I. 0.73 . Right upper pole medulla EDR 0.32 . UP Cortex 9.4/4.7 PSV/EDV. Right upper pole medulla R.I. Left upper pole cortex EDR 0.50 . 0.68 . Left upper pole cortex R.I. 0.50 . Upper [place] Cortx 8.8/4.1 PSV/EDV. Left lower Pole medulla 13.7/3.7 Right upper pole cortex EDR 0.46 . PSV/EDV . Right upper pole cortex R.I. 0.54 . Left lower pole medulla EDR 0.27 . Right lower Pole medulla 15.9/4.1 Left lower pole medulla R.I. 0.73 . PSV/EDV . Lower Pole Cortx 8.5/3.3 PSV/EDV. Right lower pole medulla EDR 0.26 . Left lower pole cortex EDR 0.39 . Right lower pole medulla R.I. Left lower pole cortex R.I. 0.41 . 0.74 . Left Renal Hilar Lower Pole Cortex 10.2/3.6 PSV/EDV. LT Hilar avg 20.3/3.7 PSV/EDV . Right lower pole cortex EDR 0.35 . Left hilar acceleration time 40 Right lower pole cortex R.I. 0.65 . m/sec. Right Renal Hilar Left Renal Dimensions Right Hilar avg 30.5/5.3 PSV/EDV. Left kidney size 9.61 cm . Right hilar acceleration time 10 Left cortical dimension 1.13 cm . m/sec. Right Renal Dimensions Right kidney size 9.59 cm . Right cortical dimension 0.94 cm . Aorta Proximal abdominal aorta 1.78 x 1.75 cm . Proximal abdominal aorta peak systolic velocity is 73.2 cm/sec . Distal abdominal aorta 1.31 x 1.27 cm . Distal abdominal aorta peak systolic velocity is 148.4 cm/sec . Patient Safety Technically difficult and limitied study. Interpretation Summary Less than 60% stenosis bilateral renal arteries well visualized but I am able to visualize entire left renal artery secondary to overlying bowel gas Maximal aortic diameter 1.78 x 1.75 cm Elevated distal aortic velocity greater than 100cm/sec flow making renal/aortic ratios not reliable Right renal length borderline 9.59 cm Left renal length borderline 9.61cm Technically difficult and limited examination Neurology Nephrology Palliative care Operations: None Procedures: None Summary of Care Provided: Mrs. Bustamante is a 75 year old WF who presented to the emergency department [facility] on 07/31/2020 with a chief complaint of neck pain. Upon admission she reported that the pain had been going on for a couple of days and had actually been seen in the emergency department 5 days prior to her current admission with strokelike symptoms. At that time she underwent evaluation of a CT of her head which was negative for acute stroke but she was found to have markedly elevated blood pressure with a systolic of 241 and a diastolic of 107. She was discharged from the emergency department with adjustments to her home medications but represented to the emergency department with left-sided neck pain. She also complained of numbness and bilateral lower extremity weakness at that time and was found to have worsening kidney function and hypokalemia. An MRI of her lumbosacral spine and cervical spine were performed. The cervical spine MRI showed no abnormal cord signs but did show multilevel intervertebral disc disease with mild central canal narrowing at C5-6 and C6-C7, multilevel mild to moderate neural foraminal narrowing most severe at C3-C4, grade 1 spondylolisthesis at C4-C5 and C5-C6 with facet joint arthrosis and nonspecific left AA joint effusion. The MRI of the lumbar spine showed multilevel intervertebral disc disease with mild central canal narrowing L3-L4, multilevel neuronal laminal narrowing without impingement, right lateral recess narrowing without impingement L3-L4, multilevel facet joint arthrosis with grade 1 spondylolisthesis at L4-L5, and mild asymmetric renal parenchymal atrophy. Her persistent neurological symptoms neurology was consulted via teleneurology and they recommended outpatient neurology consultation for Parkinson's well his brain MRI and MRV head MRV was normal and the MRI showed chronic involutional changes of the brain but no acute changes. She was markedly hypertensive and medications were changed to improve blood pressure control she had been on hydralazine 100 mg 3 times a day at home. She ultimately ended up on labetalol 200 mg 3 times daily and hydralazine 100 mg 3 times daily the intent to trend her blood pressures and titrate/add medications as needed. She also suffered from MONICA on CKD. It appears her baseline CKD is stage IIIb. Nephrology was consulted and a renal artery duplex was performed showed no significant renal artery stenosis. Creatinine stabilized in the low threes and on day of discharge was 3.11. She also had issues with chronic hyponatremia most likely related to her chronic renal disease and her sodium at discharge was 133. Nephrology plans to follow her up as an outpatient and assess with further laboratory work I discussed the case with Dr. Brody prior to discharge and he wanted her Bumex and potassium held and will reevaluate her in the office next week. Seen by physical therapy and Occupational Therapy and recommendations for continued therapy services were made. She will follow-up with therapy services as an outpatient. Physical therapy also recommended a wheeled walker for the time being and a prescription was written for this at discharge. She is instructed to follow-up with her primary care physician in 1 week and was given information for neurology at [facility] to make her appointment. A UA that was ordered by nephrology on 08/08/2020 6 showed significant bacteria and leuk esterase. Urine culture was obtained and the patient was discharged on Keflex. I will follow cultures to assure coverage. She was given a 7-day course. Discharged in stable condition on 08/09/2020. She was also evaluated by palliative care during her hospitalization and will follow up with them as an outpatient. 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 Proteinuria Mild hematuria Charge time greater than 35 minutes Patient Problems: Active and Suspected Problems Neck pain (Acute) Bilateral leg weakness (Acute) Acute kidney injury superimposed on CKD (Acute) - Physical Exam Vitals/I&O's: Vital Signs Temp Pulse Resp BP Pulse Ox 98.2 F 77 16 153/69 H 96 08/09/20 08:25 08/09/20 08:25 08/09/20 08:25 08/09/20 08:25 08/09/20 08:25 Oxygen Delivery Method Room Air Weight: 79.2 kg Body Mass Index (BMI) 29.9 Finger Stick Blood Glucose 123 Intake and Output for Last 24 Hours 08/07/20 08/08/20 08/09/20 23:59 23:59 23:59 Intake Total 1650 / 1650 450 / 450 Output Total 700 / 700 400 / 400 Balance 950 / 950 50 / 50 General: Alert, Oriented x3, Cooperative, No apparent distress, Well developed, Well nourished, - - Older white female sitting up in the chair is at bedside, patient appears nontoxic, very pleasant HEENT: Atraumatic, PERRLA, EOMI, Normocephalic, EAC Clear Oral: Moist Mucosa, No Gingival or Mucosal Lesions/ Ulcerations, - - She was in place Neck: Supple, No JVD, Trachea Midline, Thyroid Normal Size and Texture Lungs: Clear to auscultation, Normal air movement, No rhonchi, No wheeze, No rales Cardiovascular: Regular rate, Regular Rhythm, Normal S1, Normal S2, No murmurs, No Ectopic Activity, No rub noted, No Gallop Abdomen: Bowel Sounds Present, Soft, Non Tender, Non-Distended, Obese Extremities: No clubbing, No cyanosis, Capillary Refill Less than 3 Seconds, Edema - 1+ pitting edema bilateral lower extremities, Peripheral Pulses Normal Skin: No rashes, No breakdown, - - Pale Musculoskeletal: No Tenderness to Palpation of Joints or Extremities, No Muscle Wasting, Arthritic Changes Lymphatic: No Cervical, Supraclavicular, or Inguinal Adenopathy Neurological: Cranial nerves II-XII grossly intact, Neuro grossly intact, - - Generalized weakness present proximal greater than distal Psych/Mental Status: Appropriate, Flat Affect Laboratory Results 08/04/20 16:50: Eos Smear Total Cells No Eosinophils Seen 08/08/20 20:35: Urine Color Yellow, Urine Clarity Sl. Cloudy, Urine pH 6.5, Ur Specific [place] 1.010, Urine Protein 100 H, Urine Glucose (UA) Normal, Urine Ketones Negative, Urine Occult Blood 25 H, Urine Nitrite Negative, Urine Bilirubin Negative, Urine Urobilinogen Normal, Ur Leukocyte Esterase 500 H, Urine RBC 0 SEEN, Urine WBC 50-100 SEEN, Ur Squamous Epith Cells 0 SEEN, Urine Bacteria 4+, Urine Mucus 0 SEEN 08/09/20 05:48: WBC 6.1, RBC 3.57 L, Hgb 11.1 L, Hct 32.8 L, MCV 91.9, MCH 31.1, MCHC 33.8, RDW Std Deviation 47.9 H, RDW Coeff of Ricky 14.3, Plt Count 238, MPV 10.6, Immature Gran % (Auto) 0.700, Neut % (Auto) 75.5 H, Lymph % (Auto) 9.3 L, [place] % (Auto) 11.2 H, Eos % (Auto) 2.8, Baso % (Auto) 0.5, Absolute Neuts (auto) 4.6, Absolute Lymphs (auto) 0.56 L, Nucleated RBC % 0 08/09/20 05:48: Sodium 133 L, Potassium 4.5, Chloride 103, Carbon Dioxide 22.0, Anion Gap 8, BUN 27 H, Creatinine 3.11 H, Estim Creat Clear Calc 13.08, Est GFR (MDRD) Af Amer 19 L, Est GFR (MDRD) Non-Af 15 L, BUN/Creatinine Ratio 8.7 L, Glucose 101, Calcium 8.4 L Current Medications Acetaminophen (Acetaminophen 325 Mg Tablet) 650 mg PO Q6H PRN PRN PRN Reason: Pain Score 1-10/Temp > 100.7 F Last Admin: 08/02/20 15:18 Dose: 650 mg Documented by: Amoxicillin/Clavulanate Potassium (Amox/Clavulanate 875 Mg Tablet) 875 mg PO BIDSSM REHAB Last Admin: 08/09/20 10:01 Dose: 875 mg Documented by: Bumetanide (Bumetanide 2 Mg Tablet) 2 mg PO DAILY REPLACED BY [facility] Last Admin: 08/09/20 08:27 Dose: 2 mg Documented by: Cyclobenzaprine HCl (Cyclobenzaprine Hcl 5 Mg Tablet) 5 mg PO TID PRN PRN Reason: tension headache Dicyclomine HCl (Dicyclomine 10 Mg Capsule) 10 mg PO [facility] Last Admin: 08/09/20 06:25 Dose: 10 mg Documented by: Docusate Sodium (Docusate Sodium 100 Mg Capsule) 100 mg PO BID PRN PRN PRN Reason: Constipation Enoxaparin Sodium (Enoxaparin 30 Mg/0.3 Ml Syringe) 30 mg SC DAILY REPLACED BY [facility] Last Admin: 08/09/20 08:27 Dose: 30 mg Documented by: Hydralazine HCl (Hydralazine 20 Mg/Ml Vial) 10 mg IV Q4H PRN PRN PRN Reason: Hypertensive Emergency Last Admin: 08/08/20 02:57 Dose: 10 mg Documented by: Hydralazine HCl (Hydralazine 50 Mg Tablet) 100 mg PO TID REPLACED BY [facility] Last Admin: 08/09/20 06:25 Dose: 100 mg Documented by: Sodium Chloride () 500 mls @ 15 mls/hr IV PRN PRN PRN Reason: Blood Transfusion Sodium Chloride () 250 mls @ 15 mls/hr IV .[id number] PRN PRN Reason: Saline Flush Sodium Chloride () 250 mls @ 15 mls/hr IV .[id number] PRN PRN Reason: Additional IVPB Infusion Labetalol HCl (Labetalol (Prefilled) 20 Mg/4 Ml) 20 mg IV Q4H PRN PRN Reason: SBP>190 OR DBP>110 Last Admin: 08/04/20 04:00 Dose: 20 mg Documented by: Labetalol HCl (Labetalol 200 Mg Tablet) 200 mg PO TID REPLACED BY [facility] Last Admin: 08/09/20 06:26 Dose: 200 mg Documented by: Melatonin (Melatonin 3 Mg Tablet) 3 mg PO QHS PRN PRN PRN Reason: INSOMNIA Last Admin: 08/02/20 20:53 Dose: 3 mg Documented by: Nitroglycerin (Nitroglycerin (Inpatient Use) 0.4 Mg Tab.Subl) 0.4 mg SL Q5M PRN PRN Reason: CARDIAC/CHEST PAIN Ondansetron HCl (Ondansetron Odt 4 Mg Tablet) 4 mg PO Q6H PRN PRN PRN Reason: NAUSEA Last Admin: 08/02/20 18:04 Dose: 4 mg Documented by: Ondansetron HCl (Ondansetron 4 Mg/2 Ml Vial) 4 mg IV Q8H PRN PRN PRN Reason: NAUSEA/VOMITING Last Admin: 08/02/20 15:23 Dose: 4 mg Documented by: Pantoprazole Sodium (Pantoprazole Sodium 40 Mg Tablet) 40 mg PO BID REPLACED BY [facility] Last Admin: 08/09/20 08:28 Dose: 40 mg Documented by: Polyethylene Glycol (Polyethylene Glycol 3350 17 Gm Packet) 17 gm PO DAILY REPLACED BY [facility] Last Admin: 08/09/20 08:27 Dose: 17 gm Documented by: Potassium Chloride (Potassium Chloride Oral Tablet 20 Meq) 20 meq PO BIDSSM REHAB Last Admin: 08/09/20 08:28 Dose: 20 meq Documented by: Psyllium Hydrophilic Mucilloid (Psyllium 1 Packet) 1 packet PO DAILY REPLACED BY [facility] Last Admin: 08/09/20 08:27 Dose: 1 packet Documented by: Sodium Chloride (0.9% Saline Lock 10 Ml Syringe) 10 - 40 ml IV UD PRN PRN Reason: SALINE FLUSH Last Admin: 08/08/20 02:57 Dose: 10 ml Documented by: Discharge Activity: Return to Normal Activity Home Medications: Medications to take at Discharge Ondansetron [Zofran Odt] 4 mg PO Q6H PRN PRN #112 tab 04/06/19 Docusate Sodium [Colace] 100 mg PO BID PRN PRN #20 cap 04/13/19 Lansoprazole [Prevacid] 30 mg PO DAILY 04/27/19 Polyethylene Glycol 3350 [Miralax] 17 g PO DAILY 04/27/19 Psyllium [Metamucil] 1 packet PO DAILY 04/27/19 Dicyclomine HCl [Bentyl] 10 mg PO ACHS 07/31/20 Fiorinal 50-325-40 mg Capsule 40 mg PO Q4H PRN 07/31/20 Cephalexin [Keflex] 500 mg PO Q12 #14 capsule 08/09/20 cycloBENZAPRine HCl [Cyclobenzaprine HCl] 5 mg PO TID PRN 30 Days #90 tablet 08/09/20 hydrALAZINE [Apresoline] 100 mg PO TID 30 Days #180 tablet 08/09/20 Following Prescriptions Were Given to Patient: hydrALAZINE [Apresoline] 100 mg PO TID 30 Days #180 tablet Transmission Status: Received by [facility] cycloBENZAPRine HCl [Cyclobenzaprine HCl] 5 mg PO TID PRN 30 Days #90 tablet PRN Reason: tension headache Transmission Status: Received by [facility] Cephalexin [Keflex] 500 mg PO Q12 #14 capsule Transmission Status: Received by [facility] Primary Care Physician: Nohemi Cardoza MD [Primary Care Provider] - Please follow up with your Primary Care Physician in: 1 week please call for appt today Please Follow Up With: Darrius Castro MD - Assembler Final When: 4-6 weeks Please Follow Up With: [facility] - concern for movement disorder When: 2-6 weeks [phone] Medical Necessity - Tobacco Use Smoking Status: Never smoker Tobacco Use: Non-smoker Meaningful Use Info Meaningful Use Diagnoses (Choose all that apply): None applicable Inpatient E&M: [id number] [facility]
--- NOTE | 2020-08-09 11:08 | CASEMGMT ---
DENNISE received a call from Amanda at [facility]. She said patient was denied. DENNISE told her SW was aware as insurance called DENNISE. DENNISE told her patient is going home at d/c now. Kiki POTTER
--- NOTE | 2020-08-09 14:06 | PHA.DC.MC ---
Pharmacy Service has performed discharge medication reconciliation and counseling for this patient. 1. CEPHALEXIN 500MG PO Q12H X 7 DAYS 2. CYCLOBENZAPRINE 5MG PO TID PRN TENSION HEADACHE 3. HYDRALAZINE 100MG PO TID The patient's discharge medication list was reviewed for discrepancies and discrepancies were resolved. Home Medications Ondansetron [Zofran Odt] 4 mg PO Q6H PRN PRN #112 tab 04/06/19 Docusate Sodium [Colace] 100 mg PO BID PRN PRN #20 cap 04/13/19 Lansoprazole [Prevacid] 30 mg PO DAILY 04/27/19 Polyethylene Glycol 3350 [Miralax] 17 g PO DAILY 04/27/19 Psyllium [Metamucil] 1 packet PO DAILY 04/27/19 Dicyclomine HCl [Bentyl] 10 mg PO ACHS 07/31/20 Fiorinal 50-325-40 mg Capsule 40 mg PO Q4H PRN 07/31/20 Cephalexin [Keflex] 500 mg PO Q12 #14 capsule 08/09/20 cycloBENZAPRine HCl [Cyclobenzaprine HCl] 5 mg PO TID PRN 30 Days #90 tablet 08/09/20 hydrALAZINE [Apresoline] 100 mg PO TID 30 Days #180 tablet 08/09/20 The patient was counseled on the following discharge medications and changes in medications for homegoing were reviewed. The Reason for Use, instructions for use, and potential side effects were reviewed for all new medications. The patient's questions regarding all of their medications were answered. The patient was able to verbally demonstrate an understanding of their discharge medications.
--- NOTE | 2020-08-09 15:24 | PCM.PN.REN ---
Patient Problems: Active and Suspected Problems Neck pain (Acute) Bilateral leg weakness (Acute) Acute kidney injury superimposed on CKD (Acute) Subjective: no new complaints - Physical Exam Vitals/I&O's: Vital Signs Temp Pulse Resp BP Pulse Ox 98.1 F 68 14 158/70 H 96 08/09/20 12:57 08/09/20 13:07 08/09/20 12:57 08/09/20 13:07 08/09/20 12:57 Oxygen Delivery Method Room Air Weight: 79.2 kg Body Mass Index (BMI) 29.9 Finger Stick Blood Glucose 123 Intake and Output for Last 24 Hours 08/07/20 08/08/20 08/09/20 23:59 23:59 23:59 Intake Total 1650 / 1650 450 / 450 480 / 480 Output Total 700 / 700 400 / 400 Balance 950 / 950 50 / 50 480 / 480 General: Alert, Oriented x3, Cooperative HEENT: Atraumatic, PERRLA, EOMI, Normocephalic Neck: Supple, No JVD, Negative Carotid Bruits Lungs: Clear to auscultation, Normal air movement Cardiovascular: Regular rate, No murmurs Abdomen: Bowel Sounds Present, Soft, Non Tender Extremities: No edema, Capillary Refill Less than 3 Seconds Skin: No rashes, No breakdown Musculoskeletal: No Tenderness to Palpation of Joints or Extremities Neurological: Cranial nerves II-XII grossly intact Psych/Mental Status: Normal Affect, Appropriate Laboratory Results 08/04/20 16:50: Eos Smear Total Cells No Eosinophils Seen 08/08/20 20:35: Urine Color Yellow, Urine Clarity Sl. Cloudy, Urine pH 6.5, Ur Specific [place] 1.010, Urine Protein 100 H, Urine Glucose (UA) Normal, Urine Ketones Negative, Urine Occult Blood 25 H, Urine Nitrite Negative, Urine Bilirubin Negative, Urine Urobilinogen Normal, Ur Leukocyte Esterase 500 H, Urine RBC 0 SEEN, Urine WBC 50-100 SEEN, Ur Squamous Epith Cells 0 SEEN, Urine Bacteria 4+, Urine Mucus 0 SEEN 08/09/20 05:48: WBC 6.1, RBC 3.57 L, Hgb 11.1 L, Hct 32.8 L, MCV 91.9, MCH 31.1, MCHC 33.8, RDW Std Deviation 47.9 H, RDW Coeff of Ricky 14.3, Plt Count 238, MPV 10.6, Immature Gran % (Auto) 0.700, Neut % (Auto) 75.5 H, Lymph % (Auto) 9.3 L, [place] % (Auto) 11.2 H, Eos % (Auto) 2.8, Baso % (Auto) 0.5, Absolute Neuts (auto) 4.6, Absolute Lymphs (auto) 0.56 L, Nucleated RBC % 0 08/09/20 05:48: Sodium 133 L, Potassium 4.5, Chloride 103, Carbon Dioxide 22.0, Anion Gap 8, BUN 27 H, Creatinine 3.11 H, Estim Creat Clear Calc 13.08, Est GFR (MDRD) Af Amer 19 L, Est GFR (MDRD) Non-Af 15 L, BUN/Creatinine Ratio 8.7 L, Glucose 101, Calcium 8.4 L Medical Necessity - Tobacco Use Smoking Status: Never smoker Tobacco Use: Non-smoker Assessment/Plan All Active Problems Hypertensive urgency (Acute) Neck pain (Acute) Bilateral leg weakness (Acute) Acute kidney injury superimposed on CKD (Acute) Acute cystitis (Acute) Acute renal failure CKD stage IIIa History of hypertension for about 1 year. Baseline creatinine was about 1.6. She was admitted with a creatinine of 1.97 increased to 3.1 and holding steady for the last 5 days. Urine analysis shows some protein, white cells, other cellular component. Renal Doppler was negative. No obstructive symptoms. Creatinine is essentially leveled off. ? MONICA related to uncontrolled hypertension. repeat UA about the same. has a lot of bacteria. started on augmentin now. Hypertension. Currently on hydralazine and labetalol. Amlodipine was stopped due to concern for lower extremity edema. continue same meds. hold bumex at nm Hyponatremia. Clinically hypervolemic. Hypokalemia. better bedside bladder scan without any retention edema is somewhat better discussed with patient, family and Dr Shahid ward to [facility] on current HTN meds except bumex will arrange follow up in a week in office
--- NOTE | 2020-08-10 11:37 | NURSING ---
[facility] DC F/U Call: Discharge Date: 08.09.20 Discharge Diagnosis: Neck pain (Acute), Bilateral leg weakness (Acute), Acute kidney injury superimposed on CKD (Acute) Discharge Disposition: Home Lace/Strata: 30/08 Attempt to call patient listed cell number a few times from different phone and no ring tone. Called patient listed home number, no answer- received unverified VM and therefore no VM left. [facility] Avelar
== END 2020-08-09 15:11 | disposition home or self-care (01) | DRG 683 ==
LOC: ED 11:12 → PCU 12:34
PROVIDERS: Hospitalist; Internal Medicine Nephrology; Admitting Provider Internal Medicine; Emergency Provider Emergency Medicine; PCP Internal Medicine; Visit Provider Internal Medicine
DX: I12.9 Hypertensive chronic kidney disease with stage 1 through stage 4 chronic kidney disease, or unspecified chronic kidney disease (principal); I16.1 Hypertensive emergency; E87.1 Hypo-osmolality and hyponatremia; G25.9 Extrapyramidal and movement disorder, unspecified; N39.0 Urinary tract infection, site not specified; N17.9 Acute kidney failure, unspecified; N18.31 Chronic kidney disease, stage 3a; E87.6 Hypokalemia; K58.9 Irritable bowel syndrome, unspecified; K21.9 Gastro-esophageal reflux disease without esophagitis; M48.02 Spinal stenosis, cervical region; M43.12 Spondylolisthesis, cervical region; G20 Parkinson's disease; D63.1 Anemia in chronic kidney disease; E87.5 Hyperkalemia; G44.209 Tension-type headache, unspecified, not intractable; E87.70 Fluid overload, unspecified; M47.816 Spondylosis without myelopathy or radiculopathy, lumbar region; G89.29 Other chronic pain; Z79.899 Other long term (current) drug therapy; Z82.3 Family history of stroke; Z90.710 Acquired absence of both cervix and uterus
CPT/HCPCS: 36415; 70544; 70551; 72141; 72148; 80048; 81001; 82570; 83735; 84300; 84484; 85025; 87086; 87088; 87186; 87205; 93005; 93975; 97110; 97162; 97166; 97530; 97535; 97802; 97803; 99284; J7030; A4216; J1940; J2405

== ENCOUNTER 2020-08-13 17:41 | Observation (INO) | payer MEDICARE, SELFPAY ==
[2020-07-31 13:02] VITALS: BMI 29.9
[2020-08-13] VITALS (11 sets, daily range): BP systolic 176–237; BP diastolic 95–115; PULSE 73–90; RESP 16–24; TEMP 36.6–36.9; O2SAT 96–98; BMI 30.4; BMI 28.3
--- NOTE | 2020-08-13 17:51 | EKG12_ITS ---
Test Reason : STROKE Blood Pressure : / mmHG Vent. Rate : 072 BPM Atrial Rate : 072 BPM P-R Int : 140 ms QRS Dur : 084 ms QT Int : 434 ms P-R-T Axes : 012 006 032 degrees QTc Int : 475 ms Normal sinus rhythm Normal ECG Confirmed by SANDRA BARR MD ([id number]), brands editor PRASANNA SINGLETON ([id number]) on 08/15/2020 1:36:59 PM Referred By: KOSTAS Confirmed By:SANDRA BARR MD
--- NOTE | 2020-08-13 17:51 | CT_ITS ---
STUDY: CT HEAD STROKE PROTOCOL W/O CONTRAST INJECTION REASON FOR EXAM: Female, 75 years old. Neuro deficit, acute, stroke suspected RADIATION DOSAGE (If Supplied By Facility): CTDIvol = ( ) mGy, DLP = ( ) mGycm TECHNIQUE: Transaxial CT imaging of the brain was performed without administration of intravenous contrast material. Individualized dose optimization techniques were used for this CT. COMPARISON: 07/26/2020 FINDINGS: Normal soft tissue structures. Normal calvarium. There is mild cerebral atrophy with widening of the extra-axial spaces and ventricular dilatation. There are areas of decreased attenuation within the white matter tracts of the supratentorial brain, consistent with microvascular disease changes. 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 Normal brainstem. Normal cerebellum. There is no intracranial hemorrhage. There are no findings of an acute ischemic infarction. Normal visualized paranasal sinuses. ASPECT score: 10 CT/STROKE Brain/Head without Cont IMPRESSION: 1. No acute intracranial hemorrhage or mass effect. 2. Central parenchymal volume loss. White matter changes that are nonspecific but most commonly associated with chronic small vessel ischemic disease. N.B. : The above information has been verbally conveyed by Andrea Jones MD (Brooks) to Kate Guillen on 08/13/2020 18:05:59 (ET). Electronically Signed: Andrea Jones MD (Brooks) at 18:08 EDT , Service support ,
[2020-08-13] MEDS: Labetalol (Prefilled) 20 MG/4 ML IV (18:04)
[2020-08-13 18:11] LABS: Absolute Lymphocyte Count 0.84 X10^3/uL (0.83-4.51); Absolute Neutrophil Count 6.9 X10^3/uL (2.0-7.7); Basophil# 0.05 X10^3/uL; Basophil% 0.6 % (0-1); Eosinophil# 0.07 X10^3/uL; Eosinophils% 0.8 % (0-5); Lymphocyte # 0.84 X10^3/ul (4.0); Lymphocyte % 9.9 % (19-41); Mean Corp Hgb Conc 34.2 g/dL (32-36); Mean Corpuscular Hgb 30.4 pg (27.0-32.0); Mean Corpuscular Volume 88.8 fL (81-99); Mean Platelet Vol. 9.9 fl (6.2-12.0); Monocyte# 0.62 X10^3/uL; Monocyte% 7.3 % (0-10); NRBC Flagged by Analyzer 0 % (0-5); Neutrophil # 6.87 X10^3/uL (2.7-7.7); Platelet Count 322 K/mm3 (150-450); RBC Distribution Width CV 13.4 % (11.6-14.6); RBC Distribution Width SD 43.8 fl (35.1-43.9); Red Blood Count 4.28 M/mm3 (4.2-5.4); White Blood Count 8.5 K/mm3 (4.4-11.0)
[2020-08-13 18:15] LABS: Prothrombin Time (Protime)PT. 12.6 SECONDS (11.7-14.9)
[2020-08-13 18:16] LABS: Partial Thromboplast Time 28.1 Seconds (24.1-36.2)
--- NOTE | 2020-08-13 18:20 | CM.ED ---
SOCIAL WORK Responded to Stroke Alert. Patient's at bedside. This worker to remain available for needs.
[2020-08-13 18:24] LABS: Anion Gap 9 (5-15); BUN 21 mg/dL (7-18); BUN/Creat Ratio 7.4 RATIO (10-20); Calcium,Total 9.1 mg/dL (8.5-10.1); Chloride 99 mmol/L (98-107); Creatinine, Serum 2.85 mg/dL (0.55-1.02); EST Glomerular Filtration Rate 17 mL/min (>60); Est Glom Filt Rate - Afr Amer 21 mL/min (>60); Estimated Creatinine Clearance 14.27 ml/min; Glucose 106 mg/dL (74-106); Potassium 3.4 mmol/L (3.5-5.1); Sodium Level 131 mmol/L (136-145)
--- NOTE | 2020-08-13 18:30 | RAD_ITS ---
STUDY: X-RAY CHEST REASON FOR EXAM: Female, 75 years old. Neuro deficit, acute, stroke suspected TECHNIQUE: AP COMPARISON: 04/27/2019 FINDINGS: EKG leads project over the chest. The lungs are clear and expanded. There is no demonstrated pleural abnormality. Normal size heart. Normal mediastinum and victor m. Normal visualized pulmonary arteries. There is atherosclerotic calcification of the aortic arch with tortuosity. Normal visualized thoracic spine. Normal visualized ribs, clavicles, and shoulders. There is no demonstrated abnormality of the visualized soft tissue structures of the upper abdomen. RAD/Chest 1 View IMPRESSION: Stable, nonacute portable x-ray examination of the chest. Electronically Signed: Andrea Jones MD (Brooks) at 19:06 EDT , Service support ,
[2020-08-13] MEDS: Labetalol 100 MG/20 ML Vial 20 MG IV (18:57)
--- NOTE | 2020-08-13 19:11 | ED.DCSUM_ITS ---
History of Present Illness Chief Complaint: Neuro S/Sx Detail of Chief Complaint: Headache and expressive aphasia Informant: Patient Onset: Today - 3 PM today Current Severity: Mild Maximum Severity: Mild Narrative: Patient presents stating that she has a headache and difficulty finding some words. She does admit that at times she can talk without any difficulty and other times cannot think of the words that she wants to say. Symptoms started around 3 PM. Stroke alert was called from triage. On my evaluation patient had NIH score of 1 for mild expressive aphasia. She does admit to a recent hospitalization for neck pain, leg weakness, and elevated blood pressures. Blood pressure is significantly elevated on arrival here. - Past Medical History (1) GERD (gastroesophageal reflux disease) Status: Chronic (2) Hypertension Status: Chronic (3) Irritable bowel syndrome Status: Chronic (4) Stage III chronic kidney disease Status: Chronic Past Medical History - Allergies and Home Meds Allergies/Adverse Reactions: Allergies codeine Allergy (Verified 07/31/20 10:28) Nausea NARCOTICS Adverse Reaction (Uncoded 07/31/20 10:28) Upset Stomach Primary Care Physician: Nohemi Cardoza MD [Primary Care Provider] - Prior records reviewed: Yes Surgical History: appendectomy, cholecystectomy, hysterectomy, tonsillectomy, - - Salpingoophorectomy Lives: Spouse/ Significant Other Smoking Status: Never smoker - Family History Maternal Family History: Reports: Heart Disease, Stroke Paternal Family History: Reports: Heart Disease Review of Systems General: Denies: Chills, Fever Eyes: Denies: Visual changes - bilaterally ENT: Denies: Bilateral ear pain Cardiovascular: Denies: Chest pain Respiratory: Denies: Dyspnea, Cough Gastrointestinal: Denies: Abdominal pain, Nausea, Vomiting, Diarrhea Genitourinary: Denies: Dysuria Musculoskeletal: Denies: Swelling, Extremity Pain Skin: Denies: Rash Neurological: Reports: Headache, - - Difficulty finding words Psych: Denies: Depression Hematologic: Denies: Easy bruising, Easy bleeding Allergy: Denies: Uticaria Physical Exam Vital Signs/Narrative: Vital Signs Temp Pulse Resp BP Pulse Ox 08/13/20 19:01 77 21 H 210/95 H 97 08/13/20 18:30 73 16 213/106 H 97 08/13/20 18:20 76 20 H 219/101 H 96 08/13/20 18:17 77 23 H 217/106 H 97 08/13/20 18:05 97.8 F 76 24 H 217/106 H 97 08/13/20 17:43 97.8 F 90 21 H 237/115 H 97 Inital Vital Signs reviewed: Yes General: Well nourished, Well developed Head: Normocephalic ENT: Moist mucous membranes Neck: Supple Cardiovascular: Regular rate, Regular rhythm Respiratory: No distress, CTA bilaterally Abdomen: Soft, Nontender, Normal bowel sounds Extremities: Nontender Skin: Normal color, No rash Neurological: Alert, Oriented x3, Normal Strength, Normal Sensation, - - Occasional difficulty with word finding. NIH equals 1. Psychological: Normal affect Diagnostic/Tx/Re-eval Impressions Brain CT 08/13/20 17:51 IMPRESSION: 1. No acute intracranial hemorrhage or mass effect. 2. Central parenchymal volume loss. White matter changes that are nonspecific but most commonly associated with chronic small vessel ischemic disease. N.B. : The above information has been verbally conveyed by Andrea Jones MD (Brooks) to Kate Guillen on 08/13/2020 18:05:59 (ET). Electronically Signed: Andrea Jones MD (Brooks) at 18:08 EDT , Service support , ADDENDUM: 08/13/20 1815 IMPRESSION: 1. No acute intracranial hemorrhage or mass effect. 2. Central parenchymal volume loss. White matter changes that are nonspecific but most commonly associated with chronic small vessel ischemic disease. N.B. : The above information has been verbally conveyed by Andrea Jones MD (Brooks) to Kate Guillen on 08/13/2020 18:05:59 (ET). Electronically Signed: Andrea Jones MD (Brooks) at 18:08 EDT , Service support , Chest X-Ray 08/13/20 18:30 IMPRESSION: Stable, nonacute portable x-ray examination of the chest. Electronically Signed: Andrea Jones MD (Brooks) at 19:06 EDT , Service support , 08/13/20 17:51 STROKE Brain/Head without Cont [CT] Stat 08/13/20 18:30 Chest 1 View [RAD] Stat Laboratory Results 08/13/20 08/13/20 08/13/20 17:55 17:55 17:55 WBC 8.5 RBC 4.28 Hgb 13.0 Hct 38.0 MCV 88.8 MCH 30.4 MCHC 34.2 RDW Std Deviation 43.8 RDW Coeff of Ricky 13.4 Plt Count 322 MPV 9.9 Immature Gran % (Auto) 0.400 Neut % (Auto) 81.0 H Lymph % (Auto) 9.9 L [place] % (Auto) 7.3 Eos % (Auto) 0.8 Baso % (Auto) 0.6 Absolute Neuts (auto) 6.9 Absolute Lymphs (auto) 0.84 Nucleated RBC % 0 PT 12.6 INR 1.0 APTT 28.1 Sodium 131 L Potassium 3.4 L Chloride 99 Carbon Dioxide 23.0 Anion Gap 9 BUN 21 H Creatinine 2.85 H Estim Creat Clear Calc 14.27 Est GFR (MDRD) Af Amer 21 L Est GFR (MDRD) Non-Af 17 L BUN/Creatinine Ratio 7.4 L Glucose 106 Calcium 9.1 Troponin I 0.042 - Medical Decision Making Stroke alert was called from triage. Patient was quickly evaluated before being taken to CT scan. Blood pressure significantly elevated and NIH score is 1. CT scan head reveals no acute findings. Portable chest x-ray per my interpretation reveals no acute disease. Blood work is reviewed. She has chronic hyponatremia. She has chronic renal insufficiency with creatinine actually better than last admission. Potassium is slightly low. Patient was given labetalol 20 mg x 2 doses. Patient will be admitted for further blood pressure control and evaluation. [facility] neurologist did be met and examined the patient. She agreed the patient had an NIH score of 1 but was not a candidate for TPA. ED Disposition - Plan for ED Patient: Disposition: Acute Care [facility] Diagnosis: Hypertensive urgency Referrals: Nohemi Cardoza MD [Primary Care Provider] -
--- NOTE | 2020-08-13 19:21 | PCM.HP.STD ---
Problem List (1) Hypertensive urgency Status: Acute (2) Obesity (BMI 30.0-34.9) Status: Chronic (3) Stage III chronic kidney disease Status: Chronic Qualifiers: Chronic kidney disease stage 3 subtype: unspecified whether 3a or 3b Qualified Code(s): N18.30 - Chronic kidney disease, stage 3 unspecified (4) Irritable bowel syndrome Status: Chronic Qualifiers: Irritable bowel syndrome type: unspecified Qualified Code(s): K58.9 - Irritable bowel syndrome without diarrhea (5) GERD (gastroesophageal reflux disease) Status: Chronic Qualifiers: Esophagitis presence: esophagitis presence not specified Qualified Code(s): K21.9 - Gastro-esophageal reflux disease without esophagitis (6) Chronic abdominal pain Status: Chronic History of Present Illness Date of Admission: 08/13/20 Chief Complaint: Headache, elevated HTN The patient is a 75 y/o F w/ PMHx: Parkinsonism, HTN, HLD, CKD stage IIIb, GERD, Chronic back pain with cervical and lumbar spinal spondylosis/OA w/ chronic gait disturbance, Chronic Hyponatremia with recent prolonged admission 07/31/20-08/09/20 who presents to the [facility] ED on 08/13/20 with history of onset of headache earlier in the day at approximately 1:59 PM in the frontal region described as a pressure rated a 6 out of 10 in severity, constant and ongoing with notably elevated blood pressures with mild photophobia and phonophobia prompting eventual ED presentation at which point patient was felt to be mildly aphasic however this significantly improved following blood pressure improvement and with improvement of her headache. Discussed at length importance of taking medications and patient does note that she has been compliant but is currently only been on hydralazine secondary to her renal function which has continued to improve. She does admit to poor oral intake choices and noted that the evening prior she ate fried rice from a local restaurants and does eat out and eat boxed foods with a considerable amount of sodium which was discussed at length. In the ED she also notes that her lower extremities have been swollen and are tender upon evaluation. Upon evaluation of patient NIH stroke scale was 0. She did note that headache was improving and rated at 4 out of 10 in severity with lessening photophobia and phonophobia. Work-up in the ED included T 97.8, heart rate 90, initial BP 237/115, respiratory rate 21, 97% on room air and most recent vitals T 98.3, heart rate 81, BP 176/108, respiratory rate 22, 98% on room air, CBC with WBC 8.5, hemoglobin 13, platelet 322 without marked shift, BMP with sodium 131, potassium 3.4, BUN/creatinine 21/2.85 improved from prior 08/09/2020 creatinine 3.11, troponin 0 0.042, EKG with sinus rhythm with no acute evidence of ischemia, chest x-ray with no acute cardiopulmonary findings, CT of the head with no acute intracranial findings with evidence of central parenchymal volume loss with white matter changes noted to be nonspecific but commonly associate with chronic small vessel ischemic disease. Given patient initial presentation with concern for expressive aphasia stroke alert was called. In the ED patient ministered labetalol 20 mg IV x2 doses. Past Medical History Past Medical History (Chronic Problems): Chronic Problems Obesity (BMI 30.0-34.9) (Chronic) Stage III chronic kidney disease (Chronic) Irritable bowel syndrome (Chronic) Hypertension (Chronic) GERD (gastroesophageal reflux disease) (Chronic) Chronic abdominal pain (Chronic) Allergies codeine Allergy (Verified 07/31/20 10:28) Nausea NARCOTICS Adverse Reaction (Uncoded 07/31/20 10:28) Upset Stomach Home Medications: Ambulatory Orders Medication Instructions Recorded Lansoprazole [Prevacid] 30 mg PO DAILY 04/27/19 Dicyclomine HCl [Bentyl] 10 mg PO ACHS 07/31/20 Cephalexin [Keflex] 500 mg PO Q12 #14 capsule 08/09/20 hydrALAZINE [Apresoline] 100 mg PO TID 30 Days #180 tablet 08/09/20 Surgical History: appendectomy, cholecystectomy, hysterectomy, tonsillectomy, - - LUDA w/ BL Salpingoophorectomy Psychiatric History: No pertinent psych hx 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 Denies: Sinus Congestion, Sinus Drainage Cardiovascular: Reports: Edema. Denies: Chest Pain, Palpitations Respiratory: Denies: Cough, Shortness of breath at rest, Sputum production Gastrointestinal: Denies: Abdominal Pain, Nausea, Vomiting Genitourinary: Denies: Dysuria Musculoskeletal: Reports: Joint Pain. Denies: Joint Tenderness Skin: Denies: Rash, Wounds Neurological: Reports: - - Patient with some concern for expressive aphasia, normal upon evaluation in the ED.. Denies: Focal weakness, Numbness, Tingling Psychiatric: Denies: Anxiety, Depression, Homicidal Ideations, Suicidal Ideations Hematologic/ Lymphatic: Reports: Anemia. Denies: Easy Bruising, Easy Bleeding VTE Information - Inpt Only VTE Present on Admission: No VTE Mechan Device Prophylaxis: SCD's VTE Pharm Prophylaxis ordered?: Yes Patient Problems: Active and Suspected Problems Hypertensive urgency (Acute) Subjective: Patient seated upright in the ED bed, no acute distress, fatigued appearing, notes headache improving but still uncomfortable with pressure to the frontal region, mild photophobia and phonophobia present but improving. No obvious expressive aphasia upon evaluation. Objective: Physical Examination: General: awake, alert, oriented x 3 including person, place, recent events, remains cooperative, seated upright in the ED bed, fatigued and uncomfortable appearing but no obvious distress, headache as well as photophobia and mild phonophobia improving. Skin: normal color, turgor, no icterus, cyanosis. HEENT: AT/NC, EOMI, PERRLA, mildly dry MM, no carotid bruits or JVD noted. Lungs: CTA bilaterally, moderate effort, mild decrease BL bases, no rales, ronchi or wheezing. Heart: Regular rate and rhythm; no gallop, rub audible. Abdomen: soft, obese, NTTP, ND, normal BS, no HSM. Extremities: no cyanosis or clubbing, bilateral lower extremity pedal to proximal simon 2+ pitting edema, tender to palpation. Neurological: patient awake, alert, oriented as noted; cognitive function improving, nearing baseline intact, suspect secondary to patient headache and hypertension; pupils equally reactive to light and accomodation; cranial nerves II-XII grossly normal, moving all 4 extremities, no focal deficits, strength preserved, sensation intact, normal FTN/HTS, no evidence of aphasia. Psychiatric: affect appears fatigued, mildly uncomfortable otherwise normal, no acute evidence of depressive or anxiety feelings. - Physical Exam Vitals/I&O's: Vital Signs Temp Pulse Resp BP Pulse Ox 97.8 F 78 21 H 210/95 H 97 08/13/20 18:05 08/13/20 19:01 08/13/20 19:01 08/13/20 19:01 08/13/20 19:01 Oxygen Delivery Method Room Air Weight: 177 lb 4.026 oz Body Mass Index (BMI) 30.4 Finger Stick Blood Glucose 103 Laboratory Results 08/13/20 17:55: WBC 8.5, RBC 4.28, Hgb 13.0, Hct 38.0, MCV 88.8, MCH 30.4, MCHC 34.2, RDW Std Deviation 43.8, RDW Coeff of Ricky 13.4, Plt Count 322, MPV 9.9, Immature Gran % (Auto) 0.400, Neut % (Auto) 81.0 H, Lymph % (Auto) 9.9 L, [place] % (Auto) 7.3, Eos % (Auto) 0.8, Baso % (Auto) 0.6, Absolute Neuts (auto) 6.9, Absolute Lymphs (auto) 0.84, Nucleated RBC % 0 08/13/20 17:55: PT 12.6, INR 1.0, APTT 28.1 08/13/20 17:55: Sodium 131 L, Potassium 3.4 L, Chloride 99, Carbon Dioxide 23.0, Anion Gap 9, BUN 21 H, Creatinine 2.85 H, Estim Creat Clear Calc 14.27, Est GFR (MDRD) Af Amer 21 L, Est GFR (MDRD) Non-Af 17 L, BUN/Creatinine Ratio 7.4 L, Glucose 106, Calcium 9.1, Troponin I 0.042 Current Medications Labetalol HCl (Labetalol (Prefilled) 20 Mg/4 Ml) 20 mg IV X1 PRN PRN Reason: BLOOD PRESSURE Last Admin: 08/13/20 18:04 Dose: 20 mg Documented by: Assessment/Plan All Active Problems Hypertensive urgency (Acute) Neck pain (Acute) Bilateral leg weakness (Acute) Acute kidney injury superimposed on CKD (Acute) Acute cystitis (Acute) The patient is a 75 y/o F w/ PMHx: Parkinsonism, HTN, HLD, CKD stage IIIb, GERD, Chronic back pain with cervical and lumbar spinal spondylosis/OA w/ chronic gait disturbance, Chronic Hyponatremia with recent prolonged admission 07/31/20-08/09/20 who presents to the [facility] ED on 08/13/20 with history of onset of headache earlier in the day at approximately 1:59 PM in the frontal region described as a pressure rated a 6 out of 10 in severity, constant and ongoing with notably elevated blood pressures with mild photophobia and phonophobia prompting eventual ED presentation at which point patient was felt to be mildly aphasic however this significantly improved following blood pressure improvement and with improvement of her headache. 1. Hypertensive urgency with associated headache, photophobia and phonophobia, questionable expressive aphasia transiently: ED evaluation with CT head with no acute intracranial findings, improving renal function with creatinine 2.85, troponin 0 0.042, EKG with sinus rhythm with no acute evidence of ischemia. Will admit to the PCU, will continue to attempt blood pressure control with current goal 160-170 at a maximum and as discussed with nephrology who will evaluate will resume patient oral Bumex 2 mg p.o. daily and continue her hydralazine 100 mg TID daily as this had demonstrated significant improved control during previous admission, will continue NIH stroke scale, recent admission with MRI thus we will not immediately repeat and continue to monitor given hypotensive presentation, will obtain echocardiogram, lipid panel, hemoglobin A1c, magnesium and TSH levels as from review of records these have not been currently obtained per Neurology recommendation. Will continue to closely monitor with NIH stroke scales. Given Neurology recommendation will also request MRI brain, MRA head and neck without contrast given underlying renal disease; however, may consider deferring pending re-evaluation and response with BP treatment as noted with prior admission (discharged 08/09/20) with MRI of the brain with chronic involutional changes with no acute findings with also MRV obtained which was noted to be unremarkable. Again, strongly suspect presentation secondary to HTN urgency. Nutrition will be consulted for education and teaching especially given significant noncompliance with recommendations regarding oral intake but again patient did not seem aware that her nutritional choices had significant amounts of salt. Will add moderate dose statin given age pending AM FLP. Will concurrently maintain on ASA. 2. Chronic Kidney Disease Stage IIIb, currently improving from recent acute kidney injury on her chronic kidney disease: Admission BUN/Cr 21/2.85 with most recent prior on 08/09/2020 BUN/creatinine /3.11, baseline renal function noted previously appeared primarily 1.3-1.8 however at the beginning of July she had been 1.7-2.0 thus on exactly clear baseline, nephrology consulted as noted given recent admission and discussion regarding medication changes per their preference. Will repeat CMP in AM. 3. Hypokalemia: Admission K+ 3.4, magnesium level requested, supplementation given, repeat level in AM. 4. Recent E. coli UTI: Patient with recent noted 08/08/2020 urine culture with presumptive E. coli, near aranda sensitivity, on cephalosporin, will clarify start date to assure appropriate end date. Denies any urinary symptoms. 5. Chronic back pain with cervical and lumbar spinal spondylosis/OA w/ chronic gait disturbance: Maintain on fall precautions, therapies consulted as noted. 6. Documented parkinsonism with chronic gait disturbance: Continue outpatient follow-up with neurology, fall precautions, therapies consulted as noted. 7. Chronic hyponatremia: Admission sodium 131, similar to prior baseline, continue to trend. 8. Hyperlipidemia: Not on regimen, given presentation adding moderate dose statin, FLP in AM. 9. Obesity: Weight loss and lifestyle changes encouraged. 10. GERD: We will continue patient home PPI. 11. DVT prophylaxis: SCDs, heparin. 12. CODE STATUS: Full code. Inpatient E&M: 57600 Init Hosp L3
--- NOTE | 2020-08-13 20:10 | ECHOCS_ITS ---
Version 2 Reason For Study: CVA Procedure This was a 2D Doppler, Color Flow transthoracic echocardiogram. The study was technically difficult. Contrast injection was performed. Exam performed portable in patient room. Left Ventricle Normal LV size. Mild concentric left ventricular hypertrophy. Left ventricular systolic function is normal. The estimated ejection fraction is 65 %. Stage 1 diastolic dysfunction. No regional wall motion abnormalities noted. Right Ventricle Normal RV size. Normal systolic function. Atria Normal left atrium. Normal right atrium. Bubble contrast study negative for right to left interatrial shunt. Mitral Valve Normal mitral valve. Tricuspid Valve Normal tricuspid valve. Mild to moderate (1-2+) tricuspid valve insufficiency. Pulmonary artery systolic pressure is 35 mmHg. Aortic Valve Normal aortic valve. Pulmonic Valve Normal pulmonic valve. Great Vessels Normal aortic root. The pulmonary artery is normal size. Normal inferior vena cava. Pericardium/Pleural No pericardial effusion. Medication Diluted definity 3.0ml given slow IV push to enhance endocardial definition. Performed a rapid injection of agitated mix of 9 cc saline and 1cc air to assess for atrial septal defect. MMode/2D Measurements & Calculations LVIDd: 3.7 cm IVSd: 1.2 cm Ao root diam: 3.6 cm LVIDs: 2.5 cm LVPWd: 1.2 cm RVDd: 3.0 cm FS: 33.1 % LAV(MOD-bp): 56.9 ml LA A4 area: 17.9 cm2 LA dimension(2D): 4.0 cm LAV(MOD-bp) Indexed: 31.5 ml/m2 LAV(MOD-sp2): 66.9 ml LAV(MOD-sp4): 46.2 ml RA A4 area: 13.2 cm2 Time Measurements MV dec time: 0.21 sec Doppler Measurements & Calculations MV E max sebastian: 107.9 cm/sec Lat Peak E' Sebastian: 6.9 cm/sec Med Peak E' Sebastian: 5.0 cm/sec MV A max sebastian: 125.2 cm/sec E/E' lat: 15.6 E/E' med: 21.4 MV E/A: 0.86 Ao V2 max: 164.5 cm/sec LV V1 max: 128.8 cm/sec PA V2 max: 96.1 cm/sec Ao max P.8 mmHg LV V1 max P.6 mmHg TR max sebastian: 274.4 cm/sec TR max P.3 mmHg ECHO/Echo Complete W/ Contrast Interpretation Summary Normal LV size. Mild concentric left ventricular hypertrophy. Left ventricular systolic function is normal. The estimated ejection fraction is 65 %. Stage 1 diastolic dysfunction. Pulmonary artery systolic pressure is 35 mmHg. Contrast injection was performed. Ordering Physician: Graciela Cárdenas Referring Physician: PAULINA GARCIA Performed By: Krista Sin, RDCS, RVT
[2020-08-13 20:49] LABS: Magnesium 2.1 mg/dL (1.6-2.6)
[2020-08-13] MEDS: Bumetanide 2 MG Tablet PO (21:08)
[2020-08-13] MEDS: hydrALAZINE 50 MG Tablet 100 MG PO (21:09)
[2020-08-13] MEDS: Dicyclomine 10 MG Capsule PO (21:09)
[2020-08-13] MEDS: Labetalol 200 MG Tablet PO (21:09)
[2020-08-13] MEDS: Heparin Injection (Vial) 5,000 UNIT/ML VIAL 5000 UNIT SC (21:10)
[2020-08-13] MEDS: Atorvastatin Calcium 40 MG Tablet PO (21:10)
[2020-08-13] MEDS: Cephalexin 500 MG Capsule PO (21:11)
[2020-08-13] MEDS: Potassium Chloride Oral Tablet 20 MEQ 40 MEQ PO (21:23)
[2020-08-14] VITALS (20 sets, daily range): BP systolic 118–183; BP diastolic 55–104; PULSE 39–85; RESP 16–18; TEMP 36.7–37; O2SAT 93–98; BMI 28.3
[2020-08-14] MEDS: Labetalol 200 MG Tablet PO ×2 (05:19→21:13)
[2020-08-14] MEDS: hydrALAZINE 50 MG Tablet 100 MG PO ×3 (05:19→21:12)
[2020-08-14] MEDS: Dicyclomine 10 MG Capsule PO ×4 (05:19→21:14)
--- NOTE | 2020-08-14 05:55 | EKG12_ITS ---
Test Reason : AM EKG Blood Pressure : / mmHG Vent. Rate : 085 BPM Atrial Rate : 085 BPM P-R Int : 138 ms QRS Dur : 080 ms QT Int : 398 ms P-R-T Axes : 071 000 033 degrees QTc Int : 473 ms Normal sinus rhythm Normal ECG When compared with ECG of 02-AUG-2020 08:18, No significant change was found Confirmed by MOMO SUNG, SANDRA ([id number]), slot editor PRASANNA SINGLETON ([id number]) on 08/16/2020 10:49:07 AM Referred By: DR COON Confirmed By:SANDRA BARR MD
--- NOTE | 2020-08-14 05:55 | MRI_ITS ---
HISTORY: Expressive aphasia TECHNIQUE: Carotid MR angiogram was performed without contrast. 3D reconstructions were reviewed. NASCET criteria using the distal internal carotid arteries for comparison were used for evaluation of stenoses. IV Contrast dosage and agent: None COMPARISON: None FINDINGS: Number of images including paperwork: [phone] AORTIC ARCH AND BRANCHES: No significant stenosis of the visualized portions. RIGHT CCA: No occlusion, significant stenosis or dissection. RIGHT ICA: No occlusion, significant stenosis or dissection. LEFT CCA: No occlusion, significant stenosis or dissection. LEFT ICA: No occlusion, significant stenosis or dissection. RIGHT VERTEBRAL ARTERY: No occlusion, significant stenosis or dissection. Diminutive. LEFT VERTEBRAL ARTERY: No occlusion, significant stenosis or dissection. INCIDENTAL FINDINGS: None. MRI/MRA Neck without Contrast IMPRESSION: Unremarkable MRA neck. at 1518 Reported and signed by: Mariah Murillo MD Electronically Signed: Mariah Murillo MD at 15:18 EDT Tel , Service support ,
--- NOTE | 2020-08-14 05:55 | MRI_ITS ---
HISTORY: Expressive aphasia TECHNIQUE: Routine [place]/brain 3D time of flight MR angiogram protocol was performed without contrast. 3D reconstructions were reviewed. IV Contrast dosage and agent: None. COMPARISON: None FINDINGS: Number of images including paperwork: [phone] INTERNAL CAROTID ARTERIES: No significant stenosis of the intracranial/visualized segments. ANTERIOR CEREBRAL ARTERIES: No significant stenosis of the visualized segments. ANTERIOR COMMUNICATING ARTERY: Present. MIDDLE CEREBRAL ARTERIES: No significant stenosis of the visualized segments. VERTEBRAL ARTERIES: No significant stenosis of the intradural/visualized segments. Right distal vertebral artery not visualized, similar to previous MRV 08/02/2020. This appears to be an anatomic variant ending in the PICA. BASILAR ARTERY: No significant stenosis. POSTERIOR CEREBRAL ARTERIES: No significant stenosis of the visualized segments. Persistent origin. POSTERIOR COMMUNICATING ARTERIES: Present. No evidence of intracranial aneurysm or vascular malformation. MRI/MRA Head ONLY without Contrast IMPRESSION: No acute intracranial vascular abnormality. at 1521 Reported and signed by: Mariah Murillo MD Electronically Signed: Mariah Murillo MD at 15:21 EDT Tel , Service support ,
--- NOTE | 2020-08-14 05:55 | MRI_ITS ---
STUDY: MRI BRAIN WITHOUT CONTRAST REASON FOR EXAM: Female, 75 years old. Expressive aphasia TECHNIQUE: Standardized multiplanar fat and water weighted pulse sequences were obtained. COMPARISON: MRI brain 08/02/2020 FINDINGS: Normal size of the ventricles and extra-axial spaces for the patient''s age. There are multiple white matter hyperintensities, distributed throughout the deep white matter tracts of the cerebral hemispheres, consistent with moderate to severe chronic white matter ischemic changes. There is no evidence for recent intracranial ischemia or other cause of cytotoxic edema on diffusion weighted imaging (DWI). There appears an old lacunar in in association with the anterior insular cortex on the left. This follows water density, for instance referred to image #14 series 5. This measures approximately 0.5 cm. Normal T2* images of the brain without demonstrated susceptibility artifact. There is no demonstrated hemosiderin stain. Normal bilateral basal ganglia. Normal thalami. There is no extra-axial fluid accumulation. Normal flow voids within the major intracranial circulation suggesting patency by spin echo criteria. There is enlargement of the sella turcica with increased CSF within the sella and flattening of the pituitary gland consistent with an empty sellar syndrome. Normal infundibular stalk, hypothalamus, and optic chiasm. Normal tectal plate and pineal gland. Normal midbrain, deanne and medulla. Normal cerebellum. Normal basal cisterns. There is minimal fluid in the mastoid air spaces on the left inferiorly. Normal bilateral internal auditory canals. No demonstrated orbital abnormality, within the constraints of a routine brain study. Mucoperiosteal thickening is noted in association with a posterior inferior right maxillary antrum. Normal calvarium and skull base. Normal visualized soft tissue structures. Normal visualized upper cervical spine. MRI/Brain without Contrast IMPRESSION: Involutional changes of the brain, as described above. No significant interval change. Electronically Signed: Valeria Dumont MD at 13:02 EDT , Service support ,
[2020-08-14 07:32] LABS: AST(SGOT) 10 U/L (15-37); Alanine Aminotransfer ALT/SGPT 16 U/L (13-56); Albumin, Serum 2.3 g/dL (3.2-5.0); Alkaline Phosphatase 87 U/L (45-117); Anion Gap 7 (5-15); BUN 20 mg/dL (7-18); BUN/Creat Ratio 6.9 RATIO (10-20); Chloride 101 mmol/L (98-107); Cholesterol 259 mg/dL (200); Creatinine, Serum 2.91 mg/dL (0.55-1.02); EST Glomerular Filtration Rate 17 mL/min (>60); Est Glom Filt Rate - Afr Amer 20 mL/min (>60); Estimated Creatinine Clearance 13.98 ml/min; Globulin 2.4 g/dL (2.2-4.2); Glucose 98 mg/dL (74-106); High Density Lipoprotein 36 mg/dL; Potassium 3.7 mmol/L (3.5-5.1); Protein, Total 4.7 g/dL (6.4-8.2); Sodium Level 132 mmol/L (136-145); T4 Free Direct 1.07 ng/dL (0.76-1.46); Thyroid Stim Hormone (TSH) 1.42 uIU/mL (0.358-3.74); Triglycerides 231 mg/dL; Very Low Density Lipoprotein 46 mg/dL (5-40)
[2020-08-14 07:55] LABS: Absolute Neutrophil Count 6.2 X10^3/uL (2.0-7.7); Basophil# 0.04 X10^3/uL; Basophil% 0.5 % (0-1); Eosinophil# 0.07 X10^3/uL; Eosinophils% 0.9 % (0-5); Hematocrit 31.9 % (37-47); Hemoglobin 10.8 g/dL (12.0-15.0); Lymphocyte % 9.1 % (19-41); Mean Corp Hgb Conc 33.9 g/dL (32-36); Mean Corpuscular Hgb 30.2 pg (27.0-32.0); Mean Corpuscular Volume 89.1 fL (81-99); Mean Platelet Vol. 9.9 fl (6.2-12.0); Monocyte# 0.62 X10^3/uL; Monocyte% 8.1 % (0-10); NRBC Flagged by Analyzer 0 % (0-5); Neutrophil # 6.22 X10^3/uL (2.7-7.7); Platelet Count 254 K/mm3 (150-450); RBC Distribution Width CV 13.6 % (11.6-14.6); RBC Distribution Width SD 44.6 fl (35.1-43.9); Red Blood Count 3.58 M/mm3 (4.2-5.4); White Blood Count 7.7 K/mm3 (4.4-11.0)
[2020-08-14 08:13] LABS: Hemoglobin A1c 4.9 % (3.8-5.6)
[2020-08-14] MEDS: Aspirin 81 MG TAB.CHEW PO (08:26)
[2020-08-14] MEDS: Pantoprazole Sodium 40 MG Tablet PO (08:26)
[2020-08-14] MEDS: Bumetanide 2 MG Tablet PO (08:26)
[2020-08-14] MEDS: Cephalexin 500 MG Capsule PO ×2 (08:26→21:15)
[2020-08-14] MEDS: Heparin Injection (Vial) 5,000 UNIT/ML VIAL 5000 UNIT SC ×2 (08:26→21:14)
--- NOTE | 2020-08-14 09:50 | PCM.PN.HOSP ---
Patient Problems: Active and Suspected Problems Hypertensive urgency (Acute) Subjective: Patient reports that she is feeling much better today and is much closer to her baseline. All of her neurological symptoms have resolved. Her headache is resolved. Her blood pressures are improved but not yet at goal. Her MRI is pending for today and her echo will be performed tomorrow. Vitals/I&O's: Vital Signs Temp Pulse Resp BP Pulse Ox 98.4 F 78 18 161/78 H 97 08/14/20 08:19 08/14/20 08:19 08/14/20 08:19 08/14/20 08:19 08/14/20 08:19 Oxygen Delivery Method Room Air Weight: 74.7 kg Body Mass Index (BMI) 28.3 Finger Stick Blood Glucose 103 Intake and Output for Last 24 Hours 08/12/20 08/13/20 08/14/20 23:59 23:59 23:59 Intake Total 600 / 600 Output Total 200 / 200 Balance 400 / 400 General: Alert, Oriented x3, Cooperative, No apparent distress, Well developed, Well nourished, - - Older white female sitting up in bed working with speech therapy, appears calm and nontoxic, no signs of expressive aphasia at this time HEENT: Atraumatic, PERRLA, EOMI, Normocephalic, EAC Clear Oral: Moist Mucosa, No Gingival or Mucosal Lesions/ Ulcerations Neck: Supple, Negative Carotid Bruits, Trachea Midline, Thyroid Normal Size and Texture Lungs: Clear to auscultation, Normal air movement, No rhonchi, No wheeze, No rales Cardiovascular: Regular rate, Regular Rhythm, Normal S1, Normal S2, No murmurs, No Ectopic Activity, Gallops - S4, No rub noted Abdomen: Bowel Sounds Present, Soft, Non Tender, Non-Distended, No Hepato-splenomegaly Extremities: No clubbing, No cyanosis, No edema, Capillary Refill Less than 3 Seconds, Peripheral Pulses Normal Neurological: Cranial nerves II-XII grossly intact, Deep Tendon Reflexes 2+/4 and Symmetrical, Neuro grossly intact, Muscle tone normal, Sensory exam intact to light touch and pain, Coordination normal Psych/Mental Status: Normal Affect, Appropriate Laboratory Results 08/13/20 17:55: WBC 8.5, RBC 4.28, Hgb 13.0, Hct 38.0, MCV 88.8, MCH 30.4, MCHC 34.2, RDW Std Deviation 43.8, RDW Coeff of Ricky 13.4, Plt Count 322, MPV 9.9, Immature Gran % (Auto) 0.400, Neut % (Auto) 81.0 H, Lymph % (Auto) 9.9 L, [place] % (Auto) 7.3, Eos % (Auto) 0.8, Baso % (Auto) 0.6, Absolute Neuts (auto) 6.9, Absolute Lymphs (auto) 0.84, Nucleated RBC % 0 08/13/20 17:55: PT 12.6, INR 1.0, APTT 28.1 08/13/20 17:55: Sodium 131 L, Potassium 3.4 L, Chloride 99, Carbon Dioxide 23.0, Anion Gap 9, BUN 21 H, Creatinine 2.85 H, Estim Creat Clear Calc 14.27, Est GFR (MDRD) Af Amer 21 L, Est GFR (MDRD) Non-Af 17 L, BUN/Creatinine Ratio 7.4 L, Glucose 106, Calcium 9.1, Troponin I 0.042 08/13/20 17:55: Magnesium 2.1 08/13/20 21:14: Troponin I 0.040 08/14/20 00:00: Troponin I 0.035 08/14/20 06:42: Sodium 132 L, Potassium 3.7, Chloride 101, Carbon Dioxide 24.0, Anion Gap 7, BUN 20 H, Creatinine 2.91 H, Estim Creat Clear Calc 13.98, Est GFR (MDRD) Af Amer 20 L, Est GFR (MDRD) Non-Af 17 L, BUN/Creatinine Ratio 6.9 L, Glucose 98, Calcium 8.0 L, Total Bilirubin 0.50, AST 10 L, ALT 16, Alkaline Phosphatase 87, Total Protein 4.7 L, Albumin 2.3 L, Globulin 2.4, Albumin/Globulin Ratio 1.0, Triglycerides 231 H, Cholesterol 259 H, LDL Cholesterol 177 H, VLDL Cholesterol 46 H, HDL Cholesterol 36 L, TSH 1.42, Free T4 1.07 08/14/20 06:42: Renin Pending, Aldosterone Pending, Plas Tot Catecholamine Pending, Dopamine Pending, Epinephrine Pending, Norepinephrine Pending 08/14/20 07:35: WBC 7.7, RBC 3.58 L, Hgb 10.8 L, Hct 31.9 L, MCV 89.1, MCH 30.2, MCHC 33.9, RDW Std Deviation 44.6 H, RDW Coeff of Ricky 13.6, Plt Count 254, MPV 9.9, Immature Gran % (Auto) 0.400, Neut % (Auto) 81.0 H, Lymph % (Auto) 9.1 L, [place] % (Auto) 8.1, Eos % (Auto) 0.9, Baso % (Auto) 0.5, Absolute Neuts (auto) 6.2, Absolute Lymphs (auto) 0.70 L, Nucleated RBC % 0 08/14/20 07:35: Hemoglobin A1c 4.9 Current Medications Acetaminophen (Acetaminophen 325 Mg Tablet) 650 mg PO Q6H PRN PRN PRN Reason: Pain Score 1-10/Temp > 100.7 F Al Hydroxide/Mg Hydroxide (Mag Hydrox/Al Hydrox/Simeth 30 Ml Udc) 30 ml PO Q6H PRN PRN PRN Reason: Gastric Burning Albuterol Sulfate (Albuterol 2.5 Mg/3 Ml Vial.Neb.) 2.5 mg INHALATION Q2H PRN PRN PRN Reason: Dyspnea, wheezing Aspirin (Aspirin 81 Mg Tab.Chew) 81 mg PO DAILY@0800 [facility] Last Admin: 08/14/20 08:26 Dose: 81 mg Documented by: Atorvastatin Calcium (Atorvastatin Calcium 40 Mg Tablet) 40 mg PO QHS [facility] Last Admin: 08/13/20 21:10 Dose: 40 mg Documented by: Bumetanide (Bumetanide 2 Mg Tablet) 2 mg PO DAILY [facility] Last Admin: 08/14/20 08:26 Dose: 2 mg Documented by: Cephalexin (Cephalexin 500 Mg Capsule) 500 mg PO Q12 [facility] Stop: 08/16/20 22:01 Last Admin: 08/14/20 08:26 Dose: 500 mg Documented by: Dicyclomine HCl (Dicyclomine 10 Mg Capsule) 10 mg PO ACHS [facility] Last Admin: 08/14/20 05:19 Dose: 10 mg Documented by: Guaifenesin (Guaifenesin 10 Ml Udc (200mg/10ml)) 20 ml PO Q4H PRN PRN PRN Reason: COUGH Heparin Sodium (Porcine) (Heparin Injection (Vial) 5,000 Unit/Ml Vial) 5,000 unit SC Q12 [facility] Last Admin: 08/14/20 08:26 Dose: 5,000 unit Documented by: Hydralazine HCl (Hydralazine 50 Mg Tablet) 100 mg PO TID [facility] Last Admin: 08/14/20 05:19 Dose: 100 mg Documented by: Hydralazine HCl (Hydralazine 20 Mg/Ml Vial) 10 mg IV Q4H PRN PRN PRN Reason: SBP GREATER THAN 170 Labetalol HCl (Labetalol (Prefilled) 20 Mg/4 Ml) 20 mg IV Q4H PRN PRN Reason: SBP > 170, use after hydralazine, hold HR < 60 Labetalol HCl (Labetalol 200 Mg Tablet) 300 mg PO TID [facility] Magnesium Hydroxide (Magnesium Hydroxide 30 Ml Udc) 30 ml PO DAILY PRN PRN PRN Reason: Constipation Melatonin (Melatonin 3 Mg Tablet) 3 mg PO QHS PRN PRN PRN Reason: INSOMNIA Nitroglycerin (Nitroglycerin (Inpatient Use) 0.4 Mg Tab.Subl) 0.4 mg SL Q5M PRN PRN Reason: CARDIAC/CHEST PAIN Nutritional Formula (Lactose Free) (Ensure Enlive 120 Ml Liquid) 120 ml PO 4X/DAY [facility] Last Admin: 08/14/20 08:26 Dose: Not Given Documented by: Ondansetron HCl (Ondansetron 4 Mg/2 Ml Vial) 4 mg IV Q8H PRN PRN PRN Reason: NAUSEA/VOMITING Pantoprazole Sodium (Pantoprazole Sodium 40 Mg Tablet) 40 mg PO DAILY [facility] Last Admin: 08/14/20 08:26 Dose: 40 mg Documented by: Prochlorperazine Edisylate (Prochlorperazine 10 Mg/2 Ml Vial) 5 mg IV Q4H PRN PRN PRN Reason: Breakthrough Nausea/Vomiting Psyllium Hydrophilic Mucilloid (Psyllium 1 Packet) 1 packet PO DAILY PRN PRN PRN Reason: Constipation Senna/Docusate Sodium (Senna/Docusate Sodium 1 Tablet) 2 tablet PO BID PRN PRN PRN Reason: Constipation Sodium Chloride (0.9% Saline Lock 10 Ml Syringe) 10 - 40 ml IV UD PRN PRN Reason: SALINE FLUSH Throat Lozenges (Benzocaine/Menthol 1 Lozenge) 1 lozenge MUCOUS MEM Q2H PRN PRN PRN Reason: SORE THROAT STROKE Vital Signs/Narrative: Vital Signs Temp Pulse Resp BP Pulse Ox 08/14/20 08:19 98.4 F 78 18 161/78 H 97 08/14/20 07:23 78 Medical Necessity - Tobacco Use Smoking Status: Never smoker Tobacco Use: Non-smoker Assessment/Plan All Active Problems Hypertensive urgency (Acute) Neck pain (Acute) Bilateral leg weakness (Acute) Acute kidney injury superimposed on CKD (Acute) Acute cystitis (Acute) Hypertensive emergency -Resolved -Patient had neurological changes associated with headache, photophobia and phonophobia -Neurological changes have resolved at this time -Blood pressure control has improved although not yet at goal -Troponins were cycled and not elevated Expressive aphasia -Resolved -Question TIA versus stroke -Repeat MRI pending--> had MRI negative for stroke on 08/02/2020 -Echo pending -Continue aspirin and statin -A1c is 4.9 Hypokalemia -Resolved with replacement Neck pain -Chronic -Patient has multilevel intervertebral disc disease and neural foraminal narrowing on MRI done on 08/01/2020 -Would recommend continued outpatient physical therapy Bilateral lower extremity weakness -Chronic -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 -Lumbar spine MRI done at her last admission 315 shows multilevel intervertebral disc disease and multilevel neural foraminal narrowing without impingement as well as lateral recess stenosis without impingement at L3-L4 and a grade 1 spondylolisthesis at L4-L5 -Recommend continued outpatient therapy--> patient already has order for outpatient physical therapy -She does have some parkinsonian features and has been asked to follow-up with neurology as an outpatient after her last discharge she was given information to follow-up with [facility] per her wishes Essential hypertension -This has been largely uncontrolled -I again readdressed low-salt low-fat diet with the patient -Bumex 2 mg daily was reinitiated -Continue hydralazine 100 mg 3 times daily -Increase labetalol to 300 mg 3 times daily -Ideally goal blood pressure is less than 130/70 -Work-up for secondary hypertension was initiated with renal and, aldosterone, plasma total catecholamines, dopamine, epinephrine and norepinephrine -Lab are pending CKD stage IIIb -Bumex reinitiated on admission -Continue to monitor creatinine closely -Creatinine is currently relatively stable -Nephrology has been consulted GERD -Continue Protonix daily Cervical and lumbar spine spondylosis/OA spine gait disturbance -Follow-up with outpatient therapy -Patient already has a prescription E. 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
--- NOTE | 2020-08-14 12:30 | NURSING ---
NIH & VS late at this time d/t pt being off unit for MRI
[2020-08-14] MEDS: Labetalol 200 MG Tablet 300 MG PO (12:32)
--- NOTE | 2020-08-14 13:30 | NURSING ---
POWER PRESS TENDER called this RN into room. States that patient ambulated to RR fine, but while on toilet was leaning forward and unable to stand. This RN in room, patient responsive but reports feeling dizzy. BP 78/39. OBSTETRICIAN initiated. x4 assist back to bed, pt placed in supine position, applied 2L N/C. at bedside.
[2020-08-14] MEDS: Acetaminophen 325 MG Tablet 650 MG PO (13:44)
[2020-08-14] MEDS: 0.9% Saline Lock 10 ML Syringe IV (14:42)
--- NOTE | 2020-08-14 14:45 | PCM.HOSP.N ---
Hospitalist Note Rapid response called on early afternoon of 08/14/2020. Patient had been given her new dose of 300 mg of labetalol approximately hour before this happened. She had just finished lunch and got up to go to the bathroom. She stated prior to entering the bathroom that she may have to have a bowel movement. Upon returning to bed she began to get lightheaded. She had mental status change. Her blood pressure dropped to the 70s systolic and her heart rate dropped as low as 39. She recovered fairly quickly and was normotensive with a heart rate back to her baseline of 72-75. Her most recent blood pressure was 138/61. She was mentating back to her baseline. I suspect she will experience a vasovagal event. She will be continue to monitor on telemetry and I will decrease her labetalol to 200 mg 3 times daily from 300 mg 3 times daily.
[2020-08-14] MEDS: Atorvastatin Calcium 40 MG Tablet PO (21:14)
[2020-08-15] VITALS (10 sets, daily range): BP systolic 134–182; BP diastolic 65–85; PULSE 68–83; RESP 16–18; TEMP 36.6–36.8; O2SAT 97–98; BMI 28.3
[2020-08-15] MEDS: hydrALAZINE 50 MG Tablet 100 MG PO ×2 (05:13→14:24)
[2020-08-15] MEDS: Labetalol 200 MG Tablet PO ×2 (05:14→14:24)
[2020-08-15] MEDS: Dicyclomine 10 MG Capsule PO ×3 (05:14→16:06)
[2020-08-15] MEDS: Pantoprazole Sodium 40 MG Tablet PO (09:22)
[2020-08-15] MEDS: Cephalexin 500 MG Capsule PO (09:22)
[2020-08-15] MEDS: Bumetanide 2 MG Tablet PO (09:22)
[2020-08-15] MEDS: Aspirin 81 MG TAB.CHEW PO (09:22)
[2020-08-15] MEDS: Heparin Injection (Vial) 5,000 UNIT/ML VIAL 5000 UNIT SC (09:25)
--- NOTE | 2020-08-15 11:09 | PHA.DC.MR ---
Pharmacy Service has performed discharge medication reconciliation for this patient. The patient's discharge medication list was reviewed for discrepancies and discrepancies were resolved. Home Medications Lansoprazole [Prevacid] 30 mg PO DAILY 04/27/19 Dicyclomine HCl [Bentyl] 10 mg PO ACHS 07/31/20 hydrALAZINE [Apresoline] 100 mg PO TID 30 Days #180 tablet 08/09/20 Aspirin [Aspirin, Baby] 81 mg PO DAILY@0800 30 Days #30 tab.chew 08/15/20 Atorvastatin Calcium [Lipitor] 40 mg PO QHS 30 Days #30 tablet 08/15/20 Bumetanide [Bumex] 2 mg PO DAILY 30 Days #30 tablet 08/15/20 Labetalol [Trandate (Beta Ramila)] 200 mg PO TID 30 Days #90 tablet 08/15/20
--- NOTE | 2020-08-15 13:18 | CASEMGMT ---
Readmission chart review: Pt was initially admitted 08/04-08/09/20 for Neck pain, bilat leg weakness and had HTN while here. Pt had decided to go home with OP therapy and then on day they planned to discharge, pt/ decided on SNF but pt's precert got denied. Pt then declined HHC after precert denial and was only agreeable to OP therapy at discharge. Pt did not get a chance to start OP therapy and then returned to [facility] ED on 08/13/20 as a Stroke alert with expressive aphasia for about 2.5hours. MRI/MRA's were negative and pt's symptoms have since resolved. Pt also with hypertensive urgency but also had an episode of hypotension yesterday afternoon s/p meds and getting up to bathroom. Pt has f/u scheduled with PCP tomorrow, 08/16/20 and with neurology on 08/30/20. This RN CM to room to discuss discharge plan with pt/ and pt states she would still like to go home and f/u with OP therapy per previous plan. Pt does state some concerns with going home d/t hypotension yesterday and Dr. Rainey aware and into room to speak with pt/. Pt/ aware to ask for RN CM with any further questions/concerns/needs. [place] RN ARLEY
--- NOTE | 2020-08-15 15:01 | PCM.DC ---
- Discharge Diagnoses Current Active Problems: Current Active and Chronic Problems Obesity (BMI 30.0-34.9) (Chronic) Hypertensive urgency (Acute) Stage III chronic kidney disease (Chronic) Irritable bowel syndrome (Chronic) Hypertension (Chronic) GERD (gastroesophageal reflux disease) (Chronic) Chronic abdominal pain (Chronic) Reason(s) for Visit for Discharge Instructions: Headache and expressive aphasia You will use the following diet at home:: Cardiac Your food should be the consistency of: Regular Your liquids should be the consistency of: Regular/Thin Discharge Activity: Return to Normal Activity Additional Instructions: Take note of changes in your medications. Continue to weigh yourself everyday. Let your physician know when you gain weight >5 pounds. Allergies/Adverse Reactions: Allergies codeine Allergy (Verified 07/31/20 10:28) Nausea NARCOTICS Adverse Reaction (Uncoded 07/31/20 10:28) Upset Stomach Medications to take at Discharge Lansoprazole [Prevacid] 30 mg PO DAILY 04/27/19 Dicyclomine HCl [Bentyl] 10 mg PO ACHS 07/31/20 hydrALAZINE [Apresoline] 100 mg PO TID 30 Days #180 tablet 08/09/20 Aspirin [Aspirin, Baby] 81 mg PO DAILY@0800 30 Days #30 tab.chew 08/15/20 Atorvastatin Calcium [Lipitor] 40 mg PO QHS 30 Days #30 tablet 08/15/20 Bumetanide [Bumex] 2 mg PO DAILY 30 Days #30 tab 08/15/20 Labetalol [Trandate (Beta Ramila)] 200 mg PO TID 30 Days #90 tablet 08/15/20 The following prescriptions were given: Aspirin [Aspirin, Baby] 81 mg PO DAILY@0800 30 Days #30 tab.chew Transmission Status: Pending to [facility] Bumetanide [Bumex] 2 mg PO DAILY 30 Days #30 tab Transmission Status: Pending to [facility] Atorvastatin Calcium [Lipitor] 40 mg PO QHS 30 Days #30 tablet Transmission Status: Pending to [facility] Labetalol [Trandate (Beta Ramila)] 200 mg PO TID 30 Days #90 tablet Transmission Status: Pending to [facility] Primary Care Physician: Nohemi Cardoza MD [Primary Care Provider] - Please follow up with your Primary Care Physician in: within 1-2 weeks Test Results: Test results from this visit will be discussed in further detail at your follow-up appointment, if applicable. Please Follow Up With: Darrius Castro MD When: in 1 week or as scheduled Proposed Discharge Date: 08/15/20
[2020-08-15 15:26] LABS: Bedside Glucose 103 mg/dL (70-110)
--- NOTE | 2020-08-15 16:01 | DS.PCM_ITS ---
Discharge Date and Diagnosis - Problem List Patient Problems: Active and Suspected Problems Hypertensive urgency (Acute) Date of Admission: 08/13/20 Date of Discharge: 08/15/20 - Primary Discharge Diagnosis Acute Problems: Active Problems Hypertensive emergency Expressive aphasia Hypokalemia - Secondary Discharge Diagnosis Chronic Problems: Chronic Problems Obesity (BMI 30.0-34.9) (Chronic) Stage III chronic kidney disease (Chronic) Irritable bowel syndrome (Chronic) Hypertension (Chronic) GERD (gastroesophageal reflux disease) (Chronic) Chronic abdominal pain (Chronic) Hospital Course and Treatment Imaging Results: Clinical Impression(s) from Imaging Studies Brain CT 08/13/20 17:51 IMPRESSION: 1. No acute intracranial hemorrhage or mass effect. 2. Central parenchymal volume loss. White matter changes that are nonspecific but most commonly associated with chronic small vessel ischemic disease. N.B. : The above information has been verbally conveyed by Andrea Jones MD (Brooks) to Kate Guillen on 08/13/2020 18:05:59 (ET). Electronically Signed: Andrea Jones MD (Brooks) at 18:08 EDT , Service support , ADDENDUM: 08/13/20 1815 IMPRESSION: 1. No acute intracranial hemorrhage or mass effect. 2. Central parenchymal volume loss. White matter changes that are nonspecific but most commonly associated with chronic small vessel ischemic disease. N.B. : The above information has been verbally conveyed by Andrea Jones MD (Brooks) to Kate Guillen on 08/13/2020 18:05:59 (ET). Electronically Signed: Andrea Jones MD (Brooks) at 18:08 EDT , Service support , Chest X-Ray 08/13/20 18:30 IMPRESSION: Stable, nonacute portable x-ray examination of the chest. Electronically Signed: Andrea Jones MD (Brooks) at 19:06 EDT , Service support , Echocardiogram 08/13/20 20:10 Interpretation Summary Normal LV size. Mild concentric left ventricular hypertrophy. Left ventricular systolic function is normal. The estimated ejection fraction is 65 %. Stage 1 diastolic dysfunction. Pulmonary artery systolic pressure is 35 mmHg. Contrast injection was performed. Ordering Physician: Graciela Cárdenas Referring Physician: NOHEMI GARCIA Performed By: Krista Sin, RDCS, RVT Brain MRI 08/14/20 05:55 IMPRESSION: Involutional changes of the brain, as described above. No significant interval change. Electronically Signed: Valeria Dumont MD at 13:02 EDT , Service support , Head MRA 08/14/20 05:55 IMPRESSION: No acute intracranial vascular abnormality. at 1521 Reported and signed by: Mariah Murillo MD Electronically Signed: Mariah Murillo MD at 15:21 EDT Tel , Service support , Neck MRA 08/14/20 05:55 IMPRESSION: Unremarkable MRA neck. at 1518 Reported and signed by: Mariah Murillo MD Electronically Signed: Mariah Murillo MD at 15:18 EDT Tel , Service support , Operations: None Procedures: 2-D Echocardiogram Summary of Care Provided: The patient is a 75 year old F with past medical history of hypertension, CKD stage III, parkinsonism, chronic back pain who was recently discharged after being managed for neck pain, numbness and bilateral lower extremity weakness as well as worsening kidney function. She has had multiple visits to the hospital recently. He represented with headache photophobia and phonophobia with mild aphasia. Blood pressure in the ED was 176/108. Head creatinine was 2.85 improved from previous 3.11. Potassium was 3.4. Her EKG showed normal sinus rhythm with no acute evidence of ischemia. Initial CT of the brain showed no acute intracranial findings. A stroke alert was called in the ED. Patient received labetalol 20 mg IV x2 doses. Patient's Bumex was held at her previous discharge. This was resumed on admission this time. She was admitted to the telemetry floor and managed as stroke rule out. MRI of the brain as well as MRA of the head and neck were all unremarkable. His blood pressure improved. Rapid response was called on the afternoon of 07/19 is like to 1 when patient was found in the bathroom, complained of lightheadedness and had a mental status change. She had earlier on being given her new dose of 300 mg labetalol. Her blood pressure dropped to the 70s and heart rate was 39. She recovered fairly quickly and was normotensive with normal heart rate. Her blood pressure was 138/61. This was suspected to be a vasovagal event. Labetalol was decreased to 200 mg 3 times daily from 300 mg 3 times daily. No events were seen on telemetry overnight. Continue to remain stable. She was seen by nephrology. She was discharged on Bumex labetalol and hydralazine. She has a follow-up appointment with a insole toe snipping machine operator in 1 week. Patient Problems: Active and Suspected Problems Hypertensive urgency (Acute) Subjective: On the day of discharge, patient was seen and examined. Denied any new complaints. Objective: Physical exam: General: Alert, Oriented x3, Cooperative, No apparent distress, Well developed, Well nourished, appears generally slightly swollen HEENT: Atraumatic, PERRLA, EOMI, Normocephalic, EAC Clear Oral: Moist Mucosa, No Gingival or Mucosal Lesions/ Ulcerations Neck: Supple, Negative Carotid Bruits, Trachea Midline, Thyroid Normal Size and Texture Lungs: Clear to auscultation, Normal air movement, No rhonchi, No wheeze, No rales Cardiovascular: Regular rate, Regular Rhythm, Normal S1, Normal S2, No murmurs, No Ectopic Activity, Gallops - S4, No rub noted Abdomen: Bowel Sounds Present, Soft, Non Tender, Non-Distended, No Hepato- splenomegaly Extremities: Bilateral leg edema +1 - Physical Exam Vitals/I&O's: Vital Signs Temp Pulse Resp BP Pulse Ox 98.3 F 76 16 147/67 H 98 08/15/20 11:47 08/15/20 14:59 08/15/20 11:47 08/15/20 14:24 08/15/20 11:47 Oxygen Delivery Method Room Air Weight: 75 kg Body Mass Index (BMI) 28.3 Finger Stick Blood Glucose 103 Orthostatic Vital Signs Start: 08/15/20 11:47 Freq: q24h Status: Active Protocol: Activity Type Activity Date Activity User E-Sign Co-Sign Detail Recorded Client Recorded Date Recorded By Document 08/15/20 11:47 DANIEL [id number] 08/15/20 11:52 DANIEL 08/15/20 11:47 Orthostatic Vitals Standing -Blood Pressure (90/60-120/80) 134/65 H -Extremity Use Left Arm -Pulse Rate (60-100) 83 Sitting -Blood Pressure (90/60-120/80) 145/71 H -Extremity Use Left Arm -Pulse Rate (60-100) 74 Lying -Blood Pressure (90/60-120/80) 164/74 H -Extremity Use Left Arm -Pulse Rate (60-100) 68 Intake and Output for Last 24 Hours 08/13/20 08/14/20 08/15/20 23:59 23:59 23:59 Intake Total 1780 / 1780 660 / 660 Output Total 200 / 200 Balance 1580 / 1580 660 / 660 Laboratory Results 08/13/20 17:45: POC Glucose 103 Current Medications Acetaminophen (Acetaminophen 325 Mg Tablet) 650 mg PO Q6H PRN PRN PRN Reason: Pain Score 1-10/Temp > 100.7 F Last Admin: 08/14/20 13:44 Dose: 650 mg Documented by: Al Hydroxide/Mg Hydroxide (Mag Hydrox/Al Hydrox/Simeth 30 Ml Udc) 30 ml PO Q6H PRN PRN PRN Reason: Gastric Burning Albuterol Sulfate (Albuterol 2.5 Mg/3 Ml Vial.Neb.) 2.5 mg INHALATION Q2H PRN PRN PRN Reason: Dyspnea, wheezing Aspirin (Aspirin 81 Mg Tab.Chew) 81 mg PO DAILY@0800 REPLACED BY [facility] Last Admin: 08/15/20 09:22 Dose: 81 mg Documented by: Atorvastatin Calcium (Atorvastatin Calcium 40 Mg Tablet) 40 mg PO QHS REPLACED BY [facility] Last Admin: 08/14/20 21:14 Dose: 40 mg Documented by: Bumetanide (Bumetanide 2 Mg Tablet) 2 mg PO DAILY REPLACED BY [facility] Last Admin: 08/15/20 09:22 Dose: 2 mg Documented by: Cephalexin (Cephalexin 500 Mg Capsule) 500 mg PO Q12 REPLACED BY [facility] Stop: 08/16/20 22:01 Last Admin: 08/15/20 09:22 Dose: 500 mg Documented by: Dicyclomine HCl (Dicyclomine 10 Mg Capsule) 10 mg PO ACHS REPLACED BY [facility] Last Admin: 08/15/20 12:18 Dose: 10 mg Documented by: Guaifenesin (Guaifenesin 10 Ml Udc (200mg/10ml)) 20 ml PO Q4H PRN PRN PRN Reason: COUGH Heparin Sodium (Porcine) (Heparin Injection (Vial) 5,000 Unit/Ml Vial) 5,000 unit SC Q12 REPLACED BY [facility] Last Admin: 08/15/20 09:25 Dose: 5,000 unit Documented by: Hydralazine HCl (Hydralazine 50 Mg Tablet) 100 mg PO TID REPLACED BY [facility] Last Admin: 08/15/20 14:24 Dose: 100 mg Documented by: Hydralazine HCl (Hydralazine 20 Mg/Ml Vial) 10 mg IV Q4H PRN PRN PRN Reason: SBP GREATER THAN 170 Labetalol HCl (Labetalol (Prefilled) 20 Mg/4 Ml) 20 mg IV Q4H PRN PRN Reason: SBP > 170, use after hydralazine, hold HR < 60 Labetalol HCl (Labetalol 200 Mg Tablet) 200 mg PO TID REPLACED BY [facility] Last Admin: 03/29/21 14:24 Dose: 200 mg Documented by: Magnesium Hydroxide (Magnesium Hydroxide 30 Ml Udc) 30 ml PO DAILY PRN PRN PRN Reason: Constipation Melatonin (Melatonin 3 Mg Tablet) 3 mg PO QHS PRN PRN PRN Reason: INSOMNIA Nitroglycerin (Nitroglycerin (Inpatient Use) 0.4 Mg Tab.Subl) 0.4 mg SL Q5M PRN PRN Reason: CARDIAC/CHEST PAIN Ondansetron HCl (Ondansetron 4 Mg/2 Ml Vial) 4 mg IV Q8H PRN PRN PRN Reason: NAUSEA/VOMITING Pantoprazole Sodium (Pantoprazole Sodium 40 Mg Tablet) 40 mg PO DAILY JORDI Last Admin: 08/15/20 09:22 Dose: 40 mg Documented by: Prochlorperazine Edisylate (Prochlorperazine 10 Mg/2 Ml Vial) 5 mg IV Q4H PRN PRN PRN Reason: Breakthrough Nausea/Vomiting Psyllium Hydrophilic Mucilloid (Psyllium 1 Packet) 1 packet PO DAILY PRN PRN PRN Reason: Constipation Senna/Docusate Sodium (Senna/Docusate Sodium 1 Tablet) 2 tablet PO BID PRN PRN PRN Reason: Constipation Sodium Chloride (0.9% Saline Lock 10 Ml Syringe) 10 - 40 ml IV UD PRN PRN Reason: SALINE FLUSH Last Admin: 08/14/20 14:42 Dose: 10 ml Documented by: Throat Lozenges (Benzocaine/Menthol 1 Lozenge) 1 lozenge MUCOUS MEM Q2H PRN PRN PRN Reason: SORE THROAT Discharge Diet: Renal Diet Discharge Activity: Return to Normal Activity Home Medications: Medications to take at Discharge Lansoprazole [Prevacid] 30 mg PO DAILY 04/27/19 Dicyclomine HCl [Bentyl] 10 mg PO ACHS 07/31/20 hydrALAZINE [Apresoline] 100 mg PO TID 30 Days #180 tablet 08/09/20 Aspirin [Aspirin, Baby] 81 mg PO DAILY@0800 30 Days #30 tab.chew 08/15/20 Atorvastatin Calcium [Lipitor] 40 mg PO QHS 30 Days #30 tablet 08/15/20 Bumetanide [Bumex] 2 mg PO DAILY 30 Days #30 tab 08/15/20 Labetalol [Trandate (Beta Ramila)] 200 mg PO TID 30 Days #90 tablet 08/15/20 Following Prescriptions Were Given to Patient: Aspirin [Aspirin, Baby] 81 mg PO DAILY@0800 30 Days #30 tab.chew Transmission Status: Received by NAYA ARNETTVELAND EDER Bumetanide [Bumex] 2 mg PO DAILY 30 Days #30 tab Transmission Status: Received by NAYA ARNETTVELAND EDER Atorvastatin Calcium [Lipitor] 40 mg PO QHS 30 Days #30 tablet Transmission Status: Received by NAYA ANRETTVELAND EDER Labetalol [Trandate (Beta Ramila)] 200 mg PO TID 30 Days #90 tablet Transmission Status: Received by NAYA ARNETTVELAND EDER Primary Care Physician: Nohemi Garcia MD [Primary Care Provider] - Please follow up with your Primary Care Physician in: within 1-2 weeks Please Follow Up With: Darrius Castro MD When: in 1 week or as scheduled Disposition: Home with Home Health Minutes spent on discharge:: 40 Patient Condition:: Stable Medical Necessity - Tobacco Use Smoking Status: Never smoker Tobacco Use: Non-smoker Meaningful Use Info Meaningful Use Diagnoses (Choose all that apply): None applicable Inpatient E&M: 24329 Disch Hosp
--- NOTE | 2020-08-15 16:27 | PCM.CONS.R ---
Consultation - Renal 08/15/20 PCP/ Referring MD: Requesting physician: Dr. Graciela Cárdenas Primary care physician: Dr. Nohemi Cardoza MD - History of Present Illness History of Present Illness: The patient is a 75-year-old woman who is known to our service with chronic kidney disease stage IV and hypertension. The patient was just admitted to this hospital between 07/31/2020 until 08/09/2020 for neck pain. The patient represented to the hospital with left sided neck pain and bilateral lower extremity weakness. She is found to have a blood pressure of 241/107 on presentation. The patient had been taking only hydralazine at home. Supposed to be on labetalol as well. Admission on 08/13/2020, labetalol has been added to the usual dose of her hydralazine. Bumetanide was also added yesterday because of lower extremity edema. Blood pressure has been much better controlled since restart of labetalol and bumetanide. The patient denies pain, shortness of breath, nausea, vomiting, anorexia or diarrhea. There has been no significant decrease of lower extremity edema yet. Blood pressure has been much better control since admission. The most recent blood pressure was 147/67. - Allergies Allergies: Allergies codeine Allergy (Verified 07/31/20 10:28) Nausea NARCOTICS Adverse Reaction (Uncoded 07/31/20 10:28) Upset Stomach - Current Medications Current Medications: Current Medications Acetaminophen (Acetaminophen 325 Mg Tablet) 650 mg PO Q6H PRN PRN PRN Reason: Pain Score 1-10/Temp > 100.7 F Last Admin: 08/14/20 13:44 Dose: 650 mg Documented by: Al Hydroxide/Mg Hydroxide (Mag Hydrox/Al Hydrox/Simeth 30 Ml Udc) 30 ml PO Q6H PRN PRN PRN Reason: Gastric Burning Albuterol Sulfate (Albuterol 2.5 Mg/3 Ml Vial.Neb.) 2.5 mg INHALATION Q2H PRN PRN PRN Reason: Dyspnea, wheezing Aspirin (Aspirin 81 Mg Tab.Chew) 81 mg PO DAILY@0800 [facility] Last Admin: 08/15/20 09:22 Dose: 81 mg Documented by: Atorvastatin Calcium (Atorvastatin Calcium 40 Mg Tablet) 40 mg PO QHS [facility] Last Admin: 08/14/20 21:14 Dose: 40 mg Documented by: Bumetanide (Bumetanide 2 Mg Tablet) 2 mg PO DAILY [facility] Last Admin: 08/15/20 09:22 Dose: 2 mg Documented by: Cephalexin (Cephalexin 500 Mg Capsule) 500 mg PO Q12 [facility] Stop: 08/16/20 22:01 Last Admin: 08/15/20 09:22 Dose: 500 mg Documented by: Dicyclomine HCl (Dicyclomine 10 Mg Capsule) 10 mg PO ACHS [facility] Last Admin: 08/15/20 16:06 Dose: 10 mg Documented by: Guaifenesin (Guaifenesin 10 Ml Udc (200mg/10ml)) 20 ml PO Q4H PRN PRN PRN Reason: COUGH Heparin Sodium (Porcine) (Heparin Injection (Vial) 5,000 Unit/Ml Vial) 5,000 unit SC Q12 [facility] Last Admin: 08/15/20 09:25 Dose: 5,000 unit Documented by: Hydralazine HCl (Hydralazine 50 Mg Tablet) 100 mg PO TID [facility] Last Admin: 08/15/20 14:24 Dose: 100 mg Documented by: Hydralazine HCl (Hydralazine 20 Mg/Ml Vial) 10 mg IV Q4H PRN PRN PRN Reason: SBP GREATER THAN 170 Labetalol HCl (Labetalol (Prefilled) 20 Mg/4 Ml) 20 mg IV Q4H PRN PRN Reason: SBP > 170, use after hydralazine, hold HR < 60 Labetalol HCl (Labetalol 200 Mg Tablet) 200 mg PO TID [facility] Last Admin: 08/15/20 14:24 Dose: 200 mg Documented by: Magnesium Hydroxide (Magnesium Hydroxide 30 Ml Udc) 30 ml PO DAILY PRN PRN PRN Reason: Constipation Melatonin (Melatonin 3 Mg Tablet) 3 mg PO QHS PRN PRN PRN Reason: INSOMNIA Nitroglycerin (Nitroglycerin (Inpatient Use) 0.4 Mg Tab.Subl) 0.4 mg SL Q5M PRN PRN Reason: CARDIAC/CHEST PAIN Ondansetron HCl (Ondansetron 4 Mg/2 Ml Vial) 4 mg IV Q8H PRN PRN PRN Reason: NAUSEA/VOMITING Pantoprazole Sodium (Pantoprazole Sodium 40 Mg Tablet) 40 mg PO DAILY [facility] Last Admin: 08/15/20 09:22 Dose: 40 mg Documented by: Prochlorperazine Edisylate (Prochlorperazine 10 Mg/2 Ml Vial) 5 mg IV Q4H PRN PRN PRN Reason: Breakthrough Nausea/Vomiting Psyllium Hydrophilic Mucilloid (Psyllium 1 Packet) 1 packet PO DAILY PRN PRN PRN Reason: Constipation Senna/Docusate Sodium (Senna/Docusate Sodium 1 Tablet) 2 tablet PO BID PRN PRN PRN Reason: Constipation Sodium Chloride (0.9% Saline Lock 10 Ml Syringe) 10 - 40 ml IV UD PRN PRN Reason: SALINE FLUSH Last Admin: 08/14/20 14:42 Dose: 10 ml Documented by: Throat Lozenges (Benzocaine/Menthol 1 Lozenge) 1 lozenge MUCOUS MEM Q2H PRN PRN PRN Reason: SORE THROAT - Past Medical History Past Medical History (Chronic Problems): Chronic Problems Obesity (BMI 30.0-34.9) (Chronic) Stage III chronic kidney disease (Chronic) Irritable bowel syndrome (Chronic) Hypertension (Chronic) GERD (gastroesophageal reflux disease) (Chronic) Chronic abdominal pain (Chronic) - Past Surgical History Surgical History: appendectomy, cholecystectomy, hysterectomy, tonsillectomy, - - LUDA w/ BL Salpingoophorectomy - Social History Smoking Status: Never smoker Alcohol: None Drugs: None - Family History Maternal History Items: Heart Disease, Stroke Paternal History Items: Heart Disease Review of Systems Constitutional: Denies: Chills, Fever, Weight Change Eyes: Denies: Cataracts, Conjunctivae Inflammation, Double vision HEENT: Denies: Head Aches, Sinus Congestion, Sinus Drainage Cardiovascular: Denies: Chest Pain, Palpitations Respiratory: Denies: Cough, Shortness of breath at rest, Sputum production Gastrointestinal: Denies: Abdominal Pain, Nausea, Vomiting Genitourinary: Denies: Dysuria Musculoskeletal: Denies: Joint Pain, Joint Tenderness Skin: Denies: Dryness, Rash, Wounds Neurological: Denies: Numbness, Tingling, Focal weakness Psychiatric: Denies: Anxiety, Depression, Homicidal Ideations, Suicidal Ideations Hematologic/ Lymphatic: Denies: Easy Bruising, Easy Bleeding Patient Problems: Active and Suspected Problems Hypertensive urgency (Acute) - Physical Exam Vitals/I&O's: Vital Signs Temp Pulse Resp BP Pulse Ox 98.3 F 76 16 147/67 H 98 08/15/20 11:47 08/15/20 14:59 08/15/20 11:47 08/15/20 14:24 08/15/20 11:47 Oxygen Delivery Method Room Air Weight: 75 kg Body Mass Index (BMI) 28.3 Finger Stick Blood Glucose 103 Orthostatic Vital Signs Start: 08/15/20 11:47 Freq: q24h Status: Active Protocol: Activity Type Activity Date Activity User E-Sign Co-Sign Detail Recorded Client Recorded Date Recorded By Document 08/15/20 11:47 DANIEL [id number] 08/15/20 11:52 DANIEL 08/15/20 11:47 Orthostatic Vitals Standing -Blood Pressure (90/60-120/80) 134/65 H -Extremity Use Left Arm -Pulse Rate (60-100) 83 Sitting -Blood Pressure (90/60-120/80) 145/71 H -Extremity Use Left Arm -Pulse Rate (60-100) 74 Lying -Blood Pressure (90/60-120/80) 164/74 H -Extremity Use Left Arm -Pulse Rate (60-100) 68 Intake and Output for Last 24 Hours 08/13/20 08/14/20 08/15/20 23:59 23:59 23:59 Intake Total 1780 / 1780 660 / 660 Output Total 200 / 200 Balance 1580 / 1580 660 / 660 General: Alert, Oriented x3, Cooperative HEENT: Atraumatic, PERRLA, EOMI Oral: Moist Mucosa Neck: Supple, No JVD Lungs: Clear to auscultation Cardiovascular: Regular Rhythm, Normal S1, Normal S2 Abdomen: Bowel Sounds Present, Soft, Non Tender Extremities: Edema - 2+ edema in lower extremity bilaterally Musculoskeletal: No Muscle Wasting Lymphatic: No Cervical, Supraclavicular, or Inguinal Adenopathy Neurological: Deep Tendon Reflexes 2+/4 and Symmetrical Laboratory Results 08/13/20 17:45: POC Glucose 103 Current Medications Acetaminophen (Acetaminophen 325 Mg Tablet) 650 mg PO Q6H PRN PRN PRN Reason: Pain Score 1-10/Temp > 100.7 F Last Admin: 08/14/20 13:44 Dose: 650 mg Documented by: Al Hydroxide/Mg Hydroxide (Mag Hydrox/Al Hydrox/Simeth 30 Ml Udc) 30 ml PO Q6H PRN PRN PRN Reason: Gastric Burning Albuterol Sulfate (Albuterol 2.5 Mg/3 Ml Vial.Neb.) 2.5 mg INHALATION Q2H PRN PRN PRN Reason: Dyspnea, wheezing Aspirin (Aspirin 81 Mg Tab.Chew) 81 mg PO DAILY@0800 [facility] Last Admin: 08/15/20 09:22 Dose: 81 mg Documented by: Atorvastatin Calcium (Atorvastatin Calcium 40 Mg Tablet) 40 mg PO QHS [facility] Last Admin: 08/14/20 21:14 Dose: 40 mg Documented by: Bumetanide (Bumetanide 2 Mg Tablet) 2 mg PO DAILY [facility] Last Admin: 08/15/20 09:22 Dose: 2 mg Documented by: Cephalexin (Cephalexin 500 Mg Capsule) 500 mg PO Q12 [facility] Stop: 08/16/20 22:01 Last Admin: 08/15/20 09:22 Dose: 500 mg Documented by: Dicyclomine HCl (Dicyclomine 10 Mg Capsule) 10 mg PO ACHS [facility] Last Admin: 08/15/20 16:06 Dose: 10 mg Documented by: Guaifenesin (Guaifenesin 10 Ml Udc (200mg/10ml)) 20 ml PO Q4H PRN PRN PRN Reason: COUGH Heparin Sodium (Porcine) (Heparin Injection (Vial) 5,000 Unit/Ml Vial) 5,000 unit SC Q12 [facility] Last Admin: 08/15/20 09:25 Dose: 5,000 unit Documented by: Hydralazine HCl (Hydralazine 50 Mg Tablet) 100 mg PO TID [facility] Last Admin: 08/15/20 14:24 Dose: 100 mg Documented by: Hydralazine HCl (Hydralazine 20 Mg/Ml Vial) 10 mg IV Q4H PRN PRN PRN Reason: SBP GREATER THAN 170 Labetalol HCl (Labetalol (Prefilled) 20 Mg/4 Ml) 20 mg IV Q4H PRN PRN Reason: SBP > 170, use after hydralazine, hold HR < 60 Labetalol HCl (Labetalol 200 Mg Tablet) 200 mg PO TID [facility] Last Admin: 08/15/20 14:24 Dose: 200 mg Documented by: Magnesium Hydroxide (Magnesium Hydroxide 30 Ml Udc) 30 ml PO DAILY PRN PRN PRN Reason: Constipation Melatonin (Melatonin 3 Mg Tablet) 3 mg PO QHS PRN PRN PRN Reason: INSOMNIA Nitroglycerin (Nitroglycerin (Inpatient Use) 0.4 Mg Tab.Subl) 0.4 mg SL Q5M PRN PRN Reason: CARDIAC/CHEST PAIN Ondansetron HCl (Ondansetron 4 Mg/2 Ml Vial) 4 mg IV Q8H PRN PRN PRN Reason: NAUSEA/VOMITING Pantoprazole Sodium (Pantoprazole Sodium 40 Mg Tablet) 40 mg PO DAILY JORDI Last Admin: 08/15/20 09:22 Dose: 40 mg Documented by: Prochlorperazine Edisylate (Prochlorperazine 10 Mg/2 Ml Vial) 5 mg IV Q4H PRN PRN PRN Reason: Breakthrough Nausea/Vomiting Psyllium Hydrophilic Mucilloid (Psyllium 1 Packet) 1 packet PO DAILY PRN PRN PRN Reason: Constipation Senna/Docusate Sodium (Senna/Docusate Sodium 1 Tablet) 2 tablet PO BID PRN PRN PRN Reason: Constipation Sodium Chloride (0.9% Saline Lock 10 Ml Syringe) 10 - 40 ml IV UD PRN PRN Reason: SALINE FLUSH Last Admin: 08/14/20 14:42 Dose: 10 ml Documented by: Throat Lozenges (Benzocaine/Menthol 1 Lozenge) 1 lozenge MUCOUS MEM Q2H PRN PRN PRN Reason: SORE THROAT Assessment/Plan All Active Problems Hypertensive urgency (Acute) Neck pain (Acute) Bilateral leg weakness (Acute) Acute kidney injury superimposed on CKD (Acute) Acute cystitis (Acute) 1. Acute kidney injury on chronic kidney disease stage IV. The patient has underlying diabetic kidney disease with baseline creatinine of around 3.00 mg/dL. The current renal function is actually at baseline was slightly below. Is no overt uremic signs or symptoms. We will continue to monitor renal function and electrolytes. She does not yet need hemodialysis. The patient has an appointment with Dr. Castro on 08/23/2020. She should keep this appointment. 2. Anemia. Hemoglobin is only 10.8 g/dL. Although there is no need for ROMEL at this point, hemoglobin would have to be less than 10 to administer ROMEL at this point. 3. Hypertension. Blood pressure is much better controlled since admission. The patient was only taking hydralazine by itself between the last admission and now. Patient is now on labetalol milligram 3 times a day, hydralazine 100 mg 3 times a day and bumetanide 2 mg once a day. I am okay with continuing this antihypertensive regimen since blood pressure is much better controlled. We can fine-tune the antihypertensives as outpatient.
--- NOTE | 2020-08-16 10:48 | CASEMGMT ---
RN CM Discharge F/U Phone Call LACE: 12 Strata: 3 Discharge date: 08/15/20 Call date: 08/16/20 Call time: 1048 Attempted to reach pt without success and message left for pt to call this RN CM back if /when able. S[place]en RN CM Admission dx: Hypertensive urgency
[2020-08-30 12:08] LABS: Aldosterone, Serum 43.9 ng/dL (0.0-30.0); Dopamine, Pl <30 pg/mL (0-48); Epinephrine, Pl 104 pg/mL (0-62); Norepinephrine, Pl 767 pg/mL (0-874)
== END 2020-08-15 16:30 | disposition home or self-care (01) | DRG 305 ==
LOC: ED 19:22 → PCU 08-14 06:52
PROVIDERS: Internal Medicine Nephrology; Admitting Provider Family Medicine; Emergency Provider Emergency Medicine; PCP Internal Medicine; Visit Provider Internal Medicine
DX: I16.1 Hypertensive emergency (principal); R47.01 Aphasia; E87.1 Hypo-osmolality and hyponatremia; N39.0 Urinary tract infection, site not specified; R29.700 NIHSS score 0; E66.9 Obesity, unspecified; K58.9 Irritable bowel syndrome, unspecified; K21.9 Gastro-esophageal reflux disease without esophagitis; E87.6 Hypokalemia; M54.9 Dorsalgia, unspecified; G89.29 Other chronic pain; E78.5 Hyperlipidemia, unspecified; M47.816 Spondylosis without myelopathy or radiculopathy, lumbar region; D63.1 Anemia in chronic kidney disease; B96.20 Unspecified Escherichia coli [E. coli] as the cause of diseases classified elsewhere; E11.22 Type 2 diabetes mellitus with diabetic chronic kidney disease; G20 Parkinson's disease; R26.9 Unspecified abnormalities of gait and mobility; N18.32 Chronic kidney disease, stage 3b; I12.9 Hypertensive chronic kidney disease with stage 1 through stage 4 chronic kidney disease, or unspecified chronic kidney disease; Z86.12 Personal history of poliomyelitis; Z79.899 Other long term (current) drug therapy; Z82.3 Family history of stroke; Z90.710 Acquired absence of both cervix and uterus; Z68.30 Body mass index [BMI] 30.0-30.9, adult
CPT/HCPCS: 36415; 70450; 70544; 70547; 70551; 71045; 80048; 80053; 80061; 82088; 82384; 82962; 83036; 83735; 84244; 84439; 84443; 84484; 85025; 85610; 85730; 92610; 93005; 93306; 96361; 96372; 96374; 96376; 97162; 97166; 97802; 99218; 99251; 99285; J7040; Q9957; A4216; C8929; G0378; G0463

== ENCOUNTER → 2020-08-18 16:08 | Outpatient (CLI) | payer MEDICARE, SELFPAY ==
[2020-07-31 13:02] VITALS: BMI 29.9
[2020-08-15 00:12] VITALS: BMI 28.3
[2020-08-18 16:14] LABS: Mucous, Urine 0 SEEN /hpf (<or=2+); Red Blood Cells-Urine 0 SEEN /hpf (0-5)
[2020-08-18 17:05] LABS: Color, Urine Yellow (Yellow); Glucose, Dipstick Normal (Normal); Ketone-Dipstick Negative (Negative); Leukocyte Esterase-Dipstick Negative /ul (Negative); Nitrite-Dipstick Negative (Negative); Occult Blood-Urine Negative /ul (Negative); Protein-Dipstick 500 mg/dl (Negative); Specific Gravity, Urine 1.015 (1.002-1.030); Urine Bilirubin Dipstick Negative (Negative); Urine Clarity Clear (Clear); Urine Urobilinogen Normal (Normal)
[2020-08-18 17:11] LABS: Bacteria 1+ /hpf (None Seen); Hyaline Cast 0-5 SEEN /lpf (0-5); Squamous Epithelial Cells - UA 0-5 SEEN /hpf (5-10); White Blood Cells 0-5 SEEN /hpf (0-5)
[2020-08-18 17:37] LABS: Protein, Urine (Random) 212.7 mg/dL (<11.9); Protein:Creat Ratio 3431 mg/g CRE (0-200)
[2020-08-18 18:06] LABS: Albumin, Serum 2.8 g/dL (3.2-5.0); BUN 21 mg/dL (7-18); Calcium,Total 8.7 mg/dL (8.5-10.1); Chloride 97 mmol/L (98-107); Creatinine, Serum 2.98 mg/dL (0.55-1.02); EST Glomerular Filtration Rate 16 mL/min (>60); Est Glom Filt Rate - Afr Amer 20 mL/min (>60); Glucose 92 mg/dL (74-106); Phosphorus 3.6 mg/dL (2.5-4.9); Sodium Level 132 mmol/L (136-145)
[2020-08-22 16:16] LABS: Anti-dsDNA Ab <1 IU/mL (0-9)
[2020-08-22 20:06] LABS: Cytoplasmic Ab (C-ANCA) <1:20 titer (Neg:<1:20)
[2020-08-22 20:35] LABS: Complement C3 149 mg/dL (82-167); Perinuclear Ab (P-ANCA) <1:20 titer (Neg:<1:20)
== END ==
PROVIDERS: PCP Internal Medicine; Referring Provider Internal Medicine Nephrology; Visit Provider Internal Medicine Nephrology
DX: N18.30 Chronic kidney disease, stage 3 unspecified (principal)
CPT/HCPCS: 36415; 80069; 81001; 82570; 84156; 86160; 86225; 86256

== ENCOUNTER → 2020-08-23 15:51 | Outpatient (CLI) | payer MEDICARE, SELFPAY ==
[2020-08-15 00:12] VITALS: BMI 28.3
[2020-08-23 17:26] LABS: Hematocrit 35.2 % (37-47); Hemoglobin 11.8 g/dL (12.0-15.0); Mean Corp Hgb Conc 33.5 g/dL (32-36); Mean Corpuscular Hgb 30.6 pg (27.0-32.0); Mean Corpuscular Volume 91.4 fL (81-99); Platelet Count 230 K/mm3 (150-450); RBC Distribution Width CV 13.5 % (11.6-14.6); RBC Distribution Width SD 45.8 fl (35.1-43.9); Red Blood Count 3.85 M/mm3 (4.2-5.4); White Blood Count 6.4 K/mm3 (4.4-11.0)
[2020-08-23 17:38] LABS: International Normalized Ratio 1.1; Partial Thromboplast Time 27.7 Seconds (24.1-36.2); Prothrombin Time (Protime)PT. 13.1 SECONDS (11.7-14.9)
== END ==
PROVIDERS: PCP Internal Medicine; Referring Provider Internal Medicine Nephrology; Visit Provider Internal Medicine Nephrology
DX: Z01.812 Encounter for preprocedural laboratory examination (principal); N04.9 Nephrotic syndrome with unspecified morphologic changes
CPT/HCPCS: 36415; 85027; 85610; 85730

== ENCOUNTER → 2020-09-13 08:20 | Outpatient (CLI) | payer MEDICARE, SELFPAY ==
[2020-08-15 00:12] VITALS: BMI 28.3
[2020-09-13] VITALS (9 sets, daily range): BP systolic 188–229; BP diastolic 81–110; PULSE 66–84; RESP 13–95; TEMP 36.6; O2SAT 95–99; BMI 29.7
--- NOTE | 2020-09-13 | KI_PTH ---
PATIENT: LALITA JOINER LOC: CT U#:[id number] AGE/SX: 79/F ROOM: RE09/13/[address]: Dr. Darrius Castro MD : [id number] BED: DIS: SPEC #: [id number] RECD: 09/13/20 10:38 STATUS: COURTNEY REQ #: [id number] LINDA: 09/13/20 00:[address]: Darrius Castro DEPT: SURGICAL PATHOLOGY RECD BY: Jess Miguel ENTERED: 09/13/20 10:38 SP TYPE: KIDNEY BX OTHR DR: Dr. 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 Hypertensive vascular disease, moderate to marked. Focal and segmental sclerosis pattern of injury seen within residual/non-scarred glomeruli. See comment. COMMENT The findings in this patient with nephrotic-range proteinuria consist of marked/advanced diffuse, global glomerulosclerosis with only rare open glomeruli seen. Of note, open glomeruli demonstrate vascular pole (ischemic-type) collapse and focal and segmental collapse in addition to moderate arteriolar hyalinosis. The specimen is insufficient for definitive evaluation of proteinuria due to absent tissue (glomeruli) for immunofluorescent microscopy (definitive immunofluorescent microscopy evaluation) as well as absent glomeruli for electron microscopic evaluation (electron dense deposits and/or podocyte foot process. It is difficult to assign etiology to this patient?s glomerulosclerosis given the limited number of open glomeruli present for evaluation in light microscopy as well as the absent glomeruli in immunofluorescence and electron microscopic sections precluding definitive evaluation for proteinuria/ nephrotic syndrome in the case/patient. However, the small and shrunken nature/diameter of scarred glomeruli in addition to large-vessel hypertensive vascular disease and ischemic-collapse in rare nonsclerotic glomeruli, best fit with diffuse and global glomerulosclerosis as would be seen in hypertensive vascular disease and hypertensive glomerulosclerosis, moderately to markedly advanced. The presence of focal and segmental sclerosis pattern of injury could also fit with hypertensive disease as would be seen in ischemic-type (vascular pole specifically) collapse of glomeruli in this disorder. A primary focal and segmental glomerulosclerosis that has progressed to diffuse/global sclerosis cannot be completely ruled out in this case/patient due to the absence of open glomeruli for electron microscopic evaluation of podocyte foot process arrangement. Nephrotic range proteinuria may be seen in hypertensive disease, especially marked advanced subtypes with terminal glomerulosclerosis as in the case; however, the absence of glomeruli for immunofluorescence and electron microscopic studies precludes definitive evaluation for immune complex-mediated nephrotic disorders of adult kidney as well as primary podocyte abnormalities (e.g., FSGS-primary type) as possible explanations/etiologies for the patient?s advanced glomerulosclerosis and interstitial fibrosis (40% of cortex). Although a markedly advanced hypertensive (and ischemic) diffuse and global glomerulosclerosis is most favored, re-biopsy, as clinically directed, for additional/adequate tissue (specifically open glomeruli) for definitive immunofluorescent and electron microscopic studies (as well as repeat light microscopy to assess the degree of advanced glomerulosclerosis in the case/patient) may be helpful to definitely more fully evaluate this patient?s nephrotic syndrome in the background of otherwise markedly advanced (terminal) glomerulosclerosis of renal parenchyma. MICROSCOPIC DESCRIPTION LIGHT MICROSCOPY: Adequate biopsy specimen consisting predominantly of renal medullary tissue with admixed renal cortex and up to 22 glomeruli are portions of glomeruli for histologic evaluation. 16 glomeruli demonstrate global sclerosis and overall shrunken nature/diameter while remaining glomeruli demonstrate open capillary loops without epithelial crescents or appreciable acute inflammation. Two glomeruli demonstrate segmental sclerosis and vascular pole collapse. Arteriolar hyalinosis, moderate, is noted. Intermediate sized arteries demonstrate hyalinosis and thickened mclain. Interstitium demonstrates admixed chronic inflammatory infiltrate (small round nucleus lymphocytes). Rare broad/basophilic tubular casts are seen. No foreign body giant cell reaction is noted. PAS stain highlights sclerotic glomeruli as well as two glomeruli with ischemic (vascular pole) collapse. Protein resorption droplets are identified with an intact tubular epithelial cell cytoplasm throughout, moderate. Atrophic/atraumatic tubules with duplicated basement membranes are also identified. Vasculature with thickened mclain is also seen. Moderate arteriolar hyalinosis is noted. Bishop (silver) stain demonstrates sclerotic glomeruli (global sclerosis) as well as rare glomeruli with vascular pole (ischemic-type) collapse. Basement membranes are wrinkled but do not demonstrate any ?breaks?, ?splits?, duplication or irregular luminal outlines. Intermediate-sized arteries/arterial branches demonstrate mural and intimal thickening. Trichrome stain is negative for fuchsinophilic deposits within open glomeruli. No thickened glomerular basement membranes or ?beaded? glomerular basement membranes are seen. Trichome stain demonstrates 40% interstitial fibrosis within portions of cortex. Thickened vascular mclain are identified in intermediate-sized vascular structures. Arteriolar hyalinosis (moderate) is noted adjacent to collapsed and partially sclerotic glomerulus. Congo red stain is negative for congophilia and is also negative for birefringence and dichromatisim by polarization microscopy. No vascular, interstitial/tubulointerstitial or glomerular positivity is seen. IMMUNOFLUORESCENCE: Tissue submitted for immunofluorescence microscopy demonstrates renal cortex and medulla but no glomeruli for histologic evaluation. IgG is negative in tubules and vascular structures. Albumin is negative in tubules and vascular structures. Castella and lambda light chain stains demonstrate 1+ (equal) positivity within tubular contents but are negative in vascular structures. No glomeruli are present for evaluation. Insufficient for definitive immunofluorescence evaluation. ELECTRON MICROSCOPY: Toluidine blue-stained sections (thick/?inspector mechanical? sections) reveal only vasculature and tubulointerstitium. No glomeruli are present for evaluation. Insufficient for electron microscopy/ultrastructural evaluation. Ultrastructure examination is precluded by absence of glomeruli within electron microscopic sections. Of note, attempt is made to reprocess formalin-fixed, paraffin-embedded tissue; however, absence of tissue precludes reprocessing. Insufficient tissue for ultrastructural examination/evaluation. GROSS DESCRIPTION The specimen is sent entirely to [facility] for diagnosis. Received in transport medium labeled with the patient?s name and ?right kidney, lower pole,? the specimen consists of three cylindrical cores of renal parenchyma that are, in range, 0.6 x 0.1 x 0.1 cm to 1 x 0.1 x 0.1 cm. Medical Laboratory Assistant section is submitted for immunofluorescent microscopy. Medical Laboratory Assistant section is submitted for electron microscopy. The remainder of the specimen is entirely submitted as A1.
--- NOTE | 2020-09-13 08:41 | CT_ITS ---
PROCEDURE: CT GUIDED PERCUTANEOUS KIDNEY BIOPSY. DATE: 09/13/2020 INDICATION: Female, 75 years old. Stage IV chronic renal disease. PHYSICIAN: Buddy Dela Cruz M.D. MEDICATIONS: 2 mg of VERSED and 50 mcg of FENTANYL intravenously. ACCESS SITE: Lower pole right kidney NEEDLE: 18-gauge core biopsy needle. SPECIMEN: 4 18-gauge cores. EBL: None. COMPLICATIONS: None immediate. RADIATION DOSAGE (If Supplied By Facility): CTDIvol = ( 18.99 ) mGy, DLP = ( 908.58 ) mGycm. Optimization DOSE techniques were utilized. The risks, benefits, and alternatives to the procedure and sedation were explained to the patient. The specific risk of hemorrhage requiring further treatment or intervention was detailed and accepted. Written informed consent was obtained. Conscious sedation was performed. The patient received 2 mg of VERSED and 50 mcg of FENTANYL intravenously. Conscious sedation was started at 9:44 AM and terminated at 10:03 AM. The patient was independently monitored by the department nurse. The patient was placed on the CT table in the prone position. Multiple axial images were obtained from the lung base through the caudal extent of the kidneys. An appropriate entry site was identified and a billy made on the skin. The skin overlying the [right ] posterior flank was prepped and draped in sterile fashion. 1% lidocaine was administered subcutaneously for local anesthesia. Initially, a 22 gauge needle was advanced and CT images confirmed good needle position. The 22 gauge needle was then exchanged for an 17 gauge introducer needle which was advanced. Repeat CT images confirmed good needle trajectory and tip position. The introducer needle was then advanced into the periphery of the inferior renal pole, and CT images were again obtained to confirm exact tip location. The inner stylet of the introducer needle was then removed and an 18 gauge coaxial needle was advanced thru the introducer needle and biopsy performed. A total of [4 ] passes were performed and the specimen collected was sent to Pathology for further evaluation. The needle was withdrawn. Hemostasis was achieved with manual compression and a sterile dressing was applied. Repeat CT images of the biopsy area was performed which demonstrated no gross bleeding or hematoma. The patient tolerated the procedure well without immediate complications. The patient was transported to the [floor/recovery area] in stable condition. CT/Biopsy/Inj or Needle Placement IMPRESSION: Successful CT guided percutaneous kidney biopsy. The conscious sedation protocol was followed. Electronically Signed: Buddy Dela Cruz MD at 10:58 EDT , Service support ,
[2020-09-13 08:42] LABS: Platelet Count 242 K/mm3 (150-450)
[2020-09-13 08:55] LABS: Partial Thromboplast Time 27.4 Seconds (24.1-36.2); Prothrombin Time (Protime)PT. 12.1 SECONDS (11.7-14.9)
[2020-09-13] MEDS: fentaNYL 100 MCG/2 ML Ampul IV (09:44)
[2020-09-13] MEDS: Midazolam 2 MG/2 ML Syringe IV (09:44)
[2020-09-13] MEDS: Lidocaine 2% (20 ml mdv) 20 ML Vial INFILT (09:54)
== END ==
PROVIDERS: PCP Internal Medicine; Referring Provider Internal Medicine Nephrology; Visit Provider Internal Medicine Nephrology
DX: N18.4 Chronic kidney disease, stage 4 (severe) (principal); N04.9 Nephrotic syndrome with unspecified morphologic changes
CPT/HCPCS: 50200; 36415; 77012; 85049; 85610; 85730; 88305; 88313; 88346; 88348; 88350; 99155; 99156; J7040; A4216

== ENCOUNTER → 2020-09-16 12:48 | Outpatient (CLI) | payer MEDICARE, SELFPAY ==
[2020-09-13 09:01] VITALS: BMI 29.7
[2020-09-16 13:37] LABS: Hematocrit 35.9 % (37-47); Hemoglobin 11.9 g/dL (12.0-15.0); Mean Corp Hgb Conc 33.1 g/dL (32-36); Mean Corpuscular Hgb 29.8 pg (27.0-32.0); Mean Platelet Vol. 10.6 fl (6.2-12.0); Platelet Count 241 K/mm3 (150-450); RBC Distribution Width CV 13.1 % (11.6-14.6); RBC Distribution Width SD 43.3 fl (35.1-43.9); Red Blood Count 3.99 M/mm3 (4.2-5.4); White Blood Count 7.4 K/mm3 (4.4-11.0)
[2020-09-16 13:43] LABS: Partial Thromboplast Time 26.6 Seconds (24.1-36.2); Prothrombin Time (Protime)PT. 12.9 SECONDS (11.7-14.9)
[2020-09-16 13:58] LABS: PTHIN 121.5 pg/mL (18.4-80.1)
[2020-09-16 14:00] LABS: Anion Gap 9 (5-15); BUN 23 mg/dL (7-18); Calcium,Total 8.5 mg/dL (8.5-10.1); Chloride 101 mmol/L (98-107); Creatinine, Serum 2.86 mg/dL (0.55-1.02); EST Glomerular Filtration Rate 17 mL/min (>60); Est Glom Filt Rate - Afr Amer 21 mL/min (>60); Glucose 97 mg/dL (74-106); Potassium 3.2 mmol/L (3.5-5.1); Sodium Level 135 mmol/L (136-145)
[2020-09-16 14:02] LABS: Vitamin D,25 Hydroxy 24.1 ng/mL
[2020-09-16 14:07] LABS: Protein:Creat Ratio 7612 mg/g CRE (0-200)
[2020-09-19 16:08] LABS: PROEL- A/G Ratio 1.1 (0.7-1.7); PROEL- Albumin 2.9 g/dL (2.9-4.4); PROEL- Alpha-1 Globulin 0.4 g/dL (0.0-0.4); PROEL- Beta Globulin 0.8 g/dL (0.7-1.3); PROEL- Gamma Globulin 0.5 g/dL (0.4-1.8); PROEL- Globulin, Total 2.7 g/dL (2.2-3.9); PROEL- TOTAL PROTEIN 5.6 g/dL (6.0-8.5)
== END ==
PROVIDERS: PCP Internal Medicine; Referring Provider Internal Medicine Nephrology; Visit Provider Internal Medicine Nephrology
DX: Z01.812 Encounter for preprocedural laboratory examination (principal); N18.4 Chronic kidney disease, stage 4 (severe); D64.9 Anemia, unspecified
CPT/HCPCS: 36415; 80048; 82306; 82570; 83970; 84156; 84165; 85027; 85610; 85730

== ENCOUNTER 2020-09-17 02:40 | Inpatient (IN) | payer MEDICARE, SELFPAY ==
[2020-09-13 09:01] VITALS: BMI 29.7
[2020-09-17] VITALS (43 sets, daily range): BP systolic 139–252; BP diastolic 55–113; PULSE 79–99; RESP 14–22; TEMP 36.3–37.3; O2SAT 94–99; BMI 29.6; BMI 29.2
--- NOTE | 2020-09-17 03:08 | EKG12_ITS ---
Test Reason : NV Blood Pressure : / mmHG Vent. Rate : 079 BPM Atrial Rate : 079 BPM P-R Int : 138 ms QRS Dur : 080 ms QT Int : 432 ms P-R-T Axes : 062 -17 021 degrees QTc Int : 495 ms Normal sinus rhythm Poor R wave progression Confirmed by BUSHRA SUNG, YANDY ([id number]), fan mail editor PRASANNA SINGLETON ([id number]) on 09/20/2020 11:12:19 AM Referred By: FARNAZ Confirmed By:YANDY TOMLINSON MD
--- NOTE | 2020-09-17 03:08 | EX.ED.DYSGE1 ---
HPI History of Present Illness Chief Complaint: Nausea/Vomiting Informant: patient and spouse/S.O. Narrative Narrative: Patient is a 75-year-old female with a past medical history of chronic kidney disease, hypertension who presents to the emergency department for decreased responsiveness. Apparently patient kept nodding off when the would talk to her. Whenever he would wake her up she would be responsive but would fall back asleep quickly. This is not usual for her. Patient has been nauseous and vomiting since 5 PM yesterday. She has been throwing up bile. She states that she has been constipated. She denies any abdominal pain associated with this. No fevers or chills. She denies any cough, shortness of breath, chest pain or palpitations. She did have a headache 2 days ago but this is since resolved. She did have a kidney biopsy given her hypertension. She is following with nephrology. They have been keeping track of her blood pressure at home and it has been consistently over 200s. Occasionally it will come down with treatment. PFSH PFS Medical History (Updated 09/17/20 @ 06:[address] Laci Ruelas, ) Cholecystectomy planned HTN (hypertension) Home Medications lansoprazole 15 mg PO DAILY 04/27/19 [History Last Taken Unknown] dicyclomine 10 mg PO ACHS 07/31/20 [History Last Taken Unknown] bumetanide 1 mg PO DAILY 09/13/20 [History Last Taken Unknown] cephalexin 250 mg PO BID 09/13/20 [History Last Taken Unknown] Allergy/AdvReac Type Severity Reaction Status Date / Time codeine Allergy Nausea Verified 09/17/20 02:47 NARCOTICS AdvReac Upset Uncoded 09/17/20 02:47 Stomach Surgical History (Updated 09/17/20 @ 02:45 by Donald Arreguin) Hx of appendectomy Social History Smoking Status: Never smoker ROS ROS ED Constitutional Constitutional ED: Denies chills or fever(s) Eyes Eyes: Denies change in vision ENT ENT ED: Denies epistaxis or rhinorrhea Cardiovascular Cardiovascular: Denies chest pain or palpitations Respiratory/Chest Respiratory/Chest: Denies cough, dyspnea or dyspnea on exertion Gastrointestinal Gastrointestinal: Reports constipation, nausea and vomiting; Denies abdominal pain or diarrhea Genitourinary Genitourinary ED: Denies dysuria, hematuria or urinary frequency Musculoskeletal Musculoskeletal: Denies back pain or neck pain Integumentary Denies rash Neurologic Neurologic: Denies dizziness, headache(s) or weakness EXAM Physical Exam Const Vital Signs: 09/17/20 02:41 09/17/20 04:00 09/17/20 05:15 Temperature 97.3 F L 98.6 F Temperature Source Temporal Oral Pulse Rate 79 80 98 Respiratory Rate 20 H 18 18 Blood Pressure 224/102 H 252/106 H 226/95 H Blood Pressure Mean 142 154 138 Pulse Ox 98 99 97 Oxygen Delivery Method Room Air Room Air Room Air 09/17/20 06:27 09/17/20 06:35 Temperature 98.7 F Temperature Source Oral Pulse Rate 92 91 Respiratory Rate 18 18 Blood Pressure 214/113 H 221/107 H Blood Pressure Mean 146 145 Pulse Ox 97 96 Oxygen Delivery Method Room Air Positive well nourished and well developed General Appearance ED: well developed and NAD HEENT Reports normocephalic and head/scalp atraumatic Eyes PERRL and EOMs intact bilaterally Neck supple General: Negative for tenderness Resp normal respiratory effort and clear to auscultation bilaterally Auscultation: Negative for rales, rhonchi or wheezes Cardio regular rate, regular rhythm and no murmurs GI normal to inspection, nondistended, normoactive bowel sounds and non-tender Palpation: soft; Negative for guarding or rebound tenderness present Back/Spine no CVA tenderness Extremity normal to inspection General Extremety ED: Negative for edema or tenderness General Extremity: Negative for edema Neuro oriented x3, CN's II-XII intact bilaterally and no sensory deficits noted Sensorium / Orientation: alert Motor Exam: strength 5/5 throughout Psych mental status grossly normal Skin no rashes or lesions noted MDM MDM MDM Narrative Medical decision making narrative: Patient presents to the ED after she Falling asleep. was concerned that she could be dying. She has been getting worked up for persistent hypertension. She has been nauseous and vomiting since yesterday. Upon arrival to the emergency department she is hypertensive but otherwise normal vital signs. She is in no acute distress. She is a benign physical exam. She has no focal deficits. Will check basic lab work here to evaluate for signs of endorgan damage from the elevated blood pressure. Despite receiving the hydralazine and labetalol patient is still hypertensive. Her blood pressure got up to a systolic of 250. 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 Patient did have one episode of vomiting in ED stay. She is agreeable to staying in the hospital this time. Will redose with Zofran. The rest of her lab work did not reveal any significant acute abnormality from her baseline. Lab Data Labs: Laboratory Results - last 24 hr 09/17/20 09/17/20 09/17/20 02:53 02:53 03:52 WBC Cancelled 8.7 Corrected WBC Cancelled RBC Cancelled 4.48 Hgb Cancelled 13.6 Hct Cancelled 40.6 MCV Cancelled 90.6 MCH Cancelled 30.4 MCHC Cancelled 33.5 RDW Std Deviation Cancelled 43.4 RDW Coeff of Ricky Cancelled 13.0 Plt Count Cancelled 259 MPV Cancelled 9.9 Immature Gran % (Auto) Cancelled 0.300 Neut % (Auto) Cancelled 92.0 H Lymph % (Auto) Cancelled 4.5 L [place] % (Auto) Cancelled 2.9 Eos % (Auto) Cancelled 0.0 Baso % (Auto) Cancelled 0.3 Absolute Neuts (auto) Cancelled 8.0 H Absolute Lymphs (auto) Cancelled 0.39 L Total Counted Cancelled Neutrophils % (Manual) Cancelled Band Neutrophils % Cancelled Lymphocytes % (Manual) Cancelled Monocytes % (Manual) Cancelled Eosinophils % (Manual) Cancelled Basophils % (Manual) Cancelled Metamyelocytes % Cancelled Myelocytes % Cancelled Promyelocytes % Cancelled Blast Cells % Cancelled Plasma Cell % (Manual) Cancelled Other Cells % Cancelled Nucleated RBC % Cancelled 0 Nucleated RBCs/100 WBC Cancelled Differential Comment Cancelled SCANNED Diff Path Review Cancelled Hypersegmented Neuts Cancelled Atypical Lymphocytes Cancelled Reactive Lymphocytes Cancelled Smudge Cells Cancelled Toxic Granulation Cancelled Toxic Vacuolation Cancelled Dohle Bodies Cancelled Yoni Rods Cancelled Platelet Estimate Cancelled Plt Morphology Comment Cancelled RBC Morphology Cancelled Polychromasia Cancelled Hypochromasia Cancelled Poikilocytosis Cancelled Basophilic Stippling Cancelled Anisocytosis Cancelled Microcytosis Cancelled Macrocytosis Cancelled Spherocytes Cancelled Sickle Cells Cancelled Target Cells Cancelled Tear Drop Cells Cancelled Ovalocytes Cancelled Stomatocytes Cancelled [place]ford-Caspian Bodies Cancelled Asael Cells Cancelled Bite Cells Cancelled Crenated Cell Cancelled Acanthocytes (Spur) Cancelled Rouleaux Cancelled Schistocytes Cancelled Sodium Cancelled Potassium Cancelled Chloride Cancelled Carbon Dioxide Cancelled Anion Gap Cancelled BUN Cancelled Creatinine Cancelled Estim Creat Clear Calc Cancelled Est GFR (MDRD) Af Amer Cancelled Est GFR (MDRD) Non-Af Cancelled BUN/Creatinine Ratio Cancelled Glucose Cancelled Calcium Cancelled Total Bilirubin Cancelled AST Cancelled ALT Cancelled Alkaline Phosphatase Cancelled Troponin I Cancelled Total Protein Cancelled Albumin Cancelled Globulin Cancelled Albumin/Globulin Ratio Cancelled 09/17/20 03:52 WBC Corrected WBC RBC Hgb Hct MCV MCH MCHC RDW Std Deviation RDW Coeff of Ricky Plt Count MPV Immature Gran % (Auto) Neut % (Auto) Lymph % (Auto) [place] % (Auto) Eos % (Auto) Baso % (Auto) Absolute Neuts (auto) Absolute Lymphs (auto) Total Counted Neutrophils % (Manual) Band Neutrophils % Lymphocytes % (Manual) Monocytes % (Manual) Eosinophils % (Manual) Basophils % (Manual) Metamyelocytes % Myelocytes % Promyelocytes % Blast Cells % Plasma Cell % (Manual) Other Cells % Nucleated RBC % Nucleated RBCs/100 WBC Differential Comment Diff Path Review Hypersegmented Neuts Atypical Lymphocytes Reactive Lymphocytes Smudge Cells Toxic Granulation Toxic Vacuolation Dohle Bodies Yoni Rods Platelet Estimate Plt Morphology Comment RBC Morphology Polychromasia Hypochromasia Poikilocytosis Basophilic Stippling Anisocytosis Microcytosis Macrocytosis Spherocytes Sickle Cells Target Cells Tear Drop Cells Ovalocytes Stomatocytes [place]ford-[place]aspian Bodies Asael Cells Bite Cells Crenated Cell Acanthocytes (Spur) Rouleaux Schistocytes Sodium 136 Potassium 3.1 L Chloride 99 Carbon Dioxide 29.0 Anion Gap 8 BUN 23 H Creatinine 2.73 H Estim Creat Clear Calc 14.90 Est GFR (MDRD) Af Amer 22 L Est GFR (MDRD) Non-Af 18 L BUN/Creatinine Ratio 8.4 L Glucose 135 H Calcium 8.6 Total Bilirubin 0.60 AST 16 ALT 16 Alkaline Phosphatase 111 Troponin I 0.040 Total Protein 6.3 L Albumin 2.9 L Globulin 3.4 Albumin/Globulin Ratio 0.9 Critical Care Time Critical Care Time: Yes Critical care time (excluding procedures): 30-74 minutes, Discussing w/Patient &/or Family/Life Skills Coordinator Volunteer, Discussing w/Consultants, Arranging Admission or Transfer and Performing Direct Patient Care at Bedside Discharge Plan Triage Chief Complaint: Nausea/Vomiting ED Provider: Laci Ruelas Dx/Rx/DC Orders Clinical Impression: Hypertensive emergency, Nausea & vomiting Prescriptions: No Action lansoprazole 30 MG capsule 15 mg PO DAILY RF: 0 dicyclomine 10 MG capsule 10 mg PO ACHS RF: 0 cephalexin 250 mg Tablet 250 mg PO BID RF: 0 bumetanide 2 MG tablet 1 mg PO DAILY RF: 0 Primary Care Provider: Nohemi Cardoza Referrals: Nohemi Cardoza MD [Primary Care Provider] -
[2020-09-17] MEDS: Ondansetron 4 MG/2 ML Vial IV ×2 (03:41→06:16)
[2020-09-17 03:59] LABS: Absolute Lymphocyte Count 0.39 X10^3/uL (0.83-4.51); Basophil# 0.03 X10^3/uL; Basophil% 0.3 % (0-1); Hematocrit 40.6 % (37-47); Hemoglobin 13.6 g/dL (12.0-15.0); Lymphocyte # 0.39 X10^3/ul (0.83-4.51); Lymphocyte % 4.5 % (19-41); Mean Corp Hgb Conc 33.5 g/dL (32-36); Mean Corpuscular Hgb 30.4 pg (27.0-32.0); Mean Corpuscular Volume 90.6 fL (81-99); Mean Platelet Vol. 9.9 fl (6.2-12.0); Monocyte# 0.25 X10^3/uL; Monocyte% 2.9 % (0-10); NRBC Flagged by Analyzer 0 % (0-5); Neutrophil # 7.99 X10^3/uL (2.7-7.7); POSITIVE DIFFERENTIAL YES; Platelet Count 259 K/mm3 (150-450); RBC Distribution Width SD 43.4 fl (35.1-43.9); Red Blood Count 4.48 M/mm3 (4.2-5.4); White Blood Count 8.7 K/mm3 (4.4-11.0)
[2020-09-17 04:01] LABS: Differential Indicated SCAN CRITERIA MET
[2020-09-17 04:15] LABS: Differential Comment SCANNED
[2020-09-17 04:18] LABS: ALB/GLOB Ratio 0.9 RATIO (0.9-2.4); AST(SGOT) 16 U/L (15-37); Alanine Aminotransfer ALT/SGPT 16 U/L (13-56); Albumin, Serum 2.9 g/dL (3.2-5.0); Alkaline Phosphatase 111 U/L (45-117); Anion Gap 8 (5-15); BUN 23 mg/dL (7-18); BUN/Creat Ratio 8.4 RATIO (10-20); Calcium,Total 8.6 mg/dL (8.5-10.1); Chloride 99 mmol/L (98-107); Creatinine, Serum 2.73 mg/dL (0.55-1.02); EST Glomerular Filtration Rate 18 mL/min (>60); Est Glom Filt Rate - Afr Amer 22 mL/min (>60); Globulin 3.4 g/dL (2.2-4.2); Glucose 135 mg/dL (74-106); Potassium 3.1 mmol/L (3.5-5.1); Protein, Total 6.3 g/dL (6.4-8.2); Sodium Level 136 mmol/L (136-145)
[2020-09-17] MEDS: hydrALAZINE 20 MG/ML Vial 10 MG IV (04:33)
[2020-09-17] MEDS: Labetalol 200 MG Tablet PO ×3 (04:33→19:47)
--- NOTE | 2020-09-17 06:36 | PCM.HP.STD ---
HPI - General General Date of Admission: 09/17/20 HPI Narrative LALITA JOINER, is a 75 F with a significant history of hypertension and end-stage renal disease who presented to the emergency department with nausea and vomiting for few days. Also she has been constipated. Two days ago she had an enema with minimal results. Also her was concerned that patient is not acting right and it was the weekend so she wanted to bring patient in before access to medical care became difficult. At the emergency department her blood pressure was found to be severely elevated. Patient had a kidney biopsy in the same week of presentation. She follows up with [facility]. At the emergency department, ED doctor called nephrology who recommended patient be placed on nicardipine drip and be admitted to the intensive care unit. Also reportedly patient was not spontaneous in her response to her while at home. However it was the middle of the night when was assessing patient. Emergency department doctor report that at the time of examination patient patient appeared to be responding appropriately. [facility] Medical History (Updated 09/17/20 @ 07:[address] Laci Hodge MD) Cholecystectomy planned CKD (chronic kidney disease) stage 4, GFR 15-29 ml/min HTN (hypertension) Home Medications lansoprazole 15 mg PO DAILY 04/27/19 [History Last Taken Unknown] dicyclomine 10 mg PO ACHS 07/31/20 [History Last Taken Unknown] bumetanide 1 mg PO DAILY 09/13/20 [History Last Taken Unknown] cephalexin 250 mg PO BID 09/13/20 [History Last Taken Unknown] Allergy/AdvReac Type Severity Reaction Status Date / Time codeine Allergy Nausea Verified 09/17/20 02:47 NARCOTICS AdvReac Upset Uncoded 09/17/20 02:47 Stomach Family History (Updated 09/17/20 @ 07:[address] Laci Hodge MD) Other CVA (cerebral vascular accident) Heart disease Surgical History (Updated 09/17/20 @ 07:[address] Laci Hodge MD) H/O: hysterectomy Hx of appendectomy Social History Smoking Status: Never smoker ROS Constitutional Constitutional: Reports malaise; Denies anorexia Eyes Eyes: Denies blurry vision or double vision ENT HEENT: Denies abnormal hearing or dysphagia Cardiovascular Cardiovascular: Denies chest pain, claudication or edema Respiratory/Chest Respiratory/Chest: Denies cough or dyspnea Gastrointestinal Gastrointestinal: Reports constipation, nausea and vomiting; Denies abdominal pain Genitourinary Genitourinary: Denies burning urination or difficulty urinating Musculoskeletal Musculoskeletal: Denies arthralgias or back pain Neurologic Neurologic: Denies abnormal gait or abnormal speech Psychiatric Psychiatric: Denies anxiety or depression Endocrine Endocrinology: Denies change in body appearance or cold intolerance Hematologic/Lymphatic Hematologic/Lymphatic: Denies anemia or easy bleeding Vital Signs Vital Signs Vital Signs: 09/17/20 02:41 09/17/20 04:00 09/17/20 05:15 Temperature 97.3 F L 98.6 F Temperature Source Temporal Oral Pulse Rate 79 80 98 Respiratory Rate 20 H 18 18 Blood Pressure 224/102 H 252/106 H 226/95 H Blood Pressure Mean 142 154 138 Pulse Ox 98 99 97 Oxygen Delivery Method Room Air Room Air Room Air 09/17/20 06:27 Temperature 98.7 F Temperature Source Oral Pulse Rate 92 Respiratory Rate 18 Blood Pressure 214/113 H Blood Pressure Mean 146 Pulse Ox 97 Oxygen Delivery Method Room Air Physical Exam Narrative Alert and oriented x3 Nontraumatic; normocephalic Lung clear to auscultate Heart sounds S1-S2. No murmur, gallop or rubs. Abdomen bowel sounds present soft, nontender nondistended Extremity without edema cyanosis or clubbing. Lab / Micro Data Result Diagrams: 09/17/20 03:52 09/17/20 03:52 Labs: Laboratory Results - last 24 hr 09/17/20 09/17/20 09/17/20 02:53 02:53 03:52 WBC Cancelled 8.7 Corrected WBC Cancelled RBC Cancelled 4.48 Hgb Cancelled 13.6 Hct Cancelled 40.6 MCV Cancelled 90.6 MCH Cancelled 30.4 MCHC Cancelled 33.5 RDW Std Deviation Cancelled 43.4 RDW Coeff of Ricky Cancelled 13.0 Plt Count Cancelled 259 MPV Cancelled 9.9 Immature Gran % (Auto) Cancelled 0.300 Neut % (Auto) Cancelled 92.0 H Lymph % (Auto) Cancelled 4.5 L [place] % (Auto) Cancelled 2.9 Eos % (Auto) Cancelled 0.0 Baso % (Auto) Cancelled 0.3 Absolute Neuts (auto) Cancelled 8.0 H Absolute Lymphs (auto) Cancelled 0.39 L Total Counted Cancelled Neutrophils % (Manual) Cancelled Band Neutrophils % Cancelled Lymphocytes % (Manual) Cancelled Monocytes % (Manual) Cancelled Eosinophils % (Manual) Cancelled Basophils % (Manual) Cancelled Metamyelocytes % Cancelled Myelocytes % Cancelled Promyelocytes % Cancelled Blast Cells % Cancelled Plasma Cell % (Manual) Cancelled Other Cells % Cancelled Nucleated RBC % Cancelled 0 Nucleated RBCs/100 WBC Cancelled Differential Comment Cancelled SCANNED Diff Path Review Cancelled Hypersegmented Neuts Cancelled Atypical Lymphocytes Cancelled Reactive Lymphocytes Cancelled Smudge Cells Cancelled Toxic Granulation Cancelled Toxic Vacuolation Cancelled Dohle Bodies Cancelled Yoni Rods Cancelled Platelet Estimate Cancelled Plt Morphology Comment Cancelled RBC Morphology Cancelled Polychromasia Cancelled Hypochromasia Cancelled Poikilocytosis Cancelled Basophilic Stippling Cancelled Anisocytosis Cancelled Microcytosis Cancelled Macrocytosis Cancelled Spherocytes Cancelled Sickle Cells Cancelled Target Cells Cancelled Tear Drop Cells Cancelled Ovalocytes Cancelled Stomatocytes Cancelled [place] Bodies Cancelled [place] Cells Cancelled Bite Cells Cancelled Crenated Cell Cancelled Acanthocytes (Spur) Cancelled Rouleaux Cancelled Schistocytes Cancelled Sodium Cancelled Potassium Cancelled Chloride Cancelled Carbon Dioxide Cancelled Anion Gap Cancelled BUN Cancelled Creatinine Cancelled Estim Creat Clear Calc Cancelled Est GFR (MDRD) Af Amer Cancelled Est GFR (MDRD) Non-Af Cancelled BUN/Creatinine Ratio Cancelled Glucose Cancelled Calcium Cancelled Total Bilirubin Cancelled AST Cancelled ALT Cancelled Alkaline Phosphatase Cancelled Troponin I Cancelled Total Protein Cancelled Albumin Cancelled Globulin Cancelled Albumin/Globulin Ratio Cancelled 09/17/20 03:52 WBC Corrected WBC RBC Hgb Hct MCV MCH MCHC RDW Std Deviation RDW Coeff of Ricky Plt Count MPV Immature Gran % (Auto) Neut % (Auto) Lymph % (Auto) [place] % (Auto) Eos % (Auto) Baso % (Auto) Absolute Neuts (auto) Absolute Lymphs (auto) Total Counted Neutrophils % (Manual) Band Neutrophils % Lymphocytes % (Manual) Monocytes % (Manual) Eosinophils % (Manual) Basophils % (Manual) Metamyelocytes % Myelocytes % Promyelocytes % Blast Cells % Plasma Cell % (Manual) Other Cells % Nucleated RBC % Nucleated RBCs/100 WBC Differential Comment Diff Path Review Hypersegmented Neuts Atypical Lymphocytes Reactive Lymphocytes Smudge Cells Toxic Granulation Toxic Vacuolation Dohle Bodies Yoni Rods Platelet Estimate Plt Morphology Comment RBC Morphology Polychromasia Hypochromasia Poikilocytosis Basophilic Stippling Anisocytosis Microcytosis Macrocytosis Spherocytes Sickle Cells Target Cells Tear Drop Cells Ovalocytes Stomatocytes [place] Bodies [place] Cells Bite Cells Crenated Cell Acanthocytes (Spur) Rouleaux Schistocytes Sodium 136 Potassium 3.1 L Chloride 99 Carbon Dioxide 29.0 Anion Gap 8 BUN 23 H Creatinine 2.73 H Estim Creat Clear Calc 14.90 Est GFR (MDRD) Af Amer 22 L Est GFR (MDRD) Non-Af 18 L BUN/Creatinine Ratio 8.4 L Glucose 135 H Calcium 8.6 Total Bilirubin 0.60 AST 16 ALT 16 Alkaline Phosphatase 111 Troponin I 0.040 Total Protein 6.3 L Albumin 2.9 L Globulin 3.4 Albumin/Globulin Ratio 0.9 Assessment & Plan Assessment/Plan (1) Hypertensive emergency: Status: Acute Code(s): I16.1 - Hypertensive emergency (2) Nausea & vomiting: Status: Acute Code(s): R11.2 - Nausea with vomiting, unspecified Qualifiers: Vomiting Intractability: unspecified Vomiting type: unspecified Qualified Code(s): R11.2 - Nausea with vomiting, unspecified (3) Constipation: Status: Acute Code(s): K59.00 - Constipation, unspecified Qualifiers: Constipation type: unspecified constipation type Qualified Code(s): K59.00 - Constipation, unspecified (4) CKD (chronic kidney disease) stage 4, GFR 15-29 ml/min: Status: Chronic Code(s): N18.4 - Chronic kidney disease, stage 4 (severe) Plan: Review of emergency department records showed a systolic blood pressure of more than 200. Reportedly was given IV hydralazine and p.o. labetalol at the emergency department. Patient vomited at the emergency department. Started on nicardipine drip at emergency department and continued. EKG was independently interpreted. EKG with sinus rhythm. Last echocardiogram was reviewed. Echocardiogram was 08/15/2020. Echocardiogram showed ejection fraction of 65%. Stage I diastolic dysfunction. Pulmonary artery systolic pressure was 35 mmHg. Admit to the Intensive Care unit. Adjunct Professor Of Law consult. Hold home hydralazine and labetalol p.o. We will keep n.p.o. at this time. [employer] IV ordered. Discussed an enema and Dulcolax suppository at the emergency department. Shared decision to give patient Dulcolax suppository. Visit Charges Inpatient E&M: 76761 Init Hosp L3
--- NOTE | 2020-09-17 10:23 | EX.PCM.CONCC ---
Assessment & Plan Assessment/Plan (1) Hypertensive emergency: Status: Acute Code(s): I16.1 - Hypertensive emergency (2) Irritable bowel syndrome: Status: Chronic Code(s): K58.9 - Irritable bowel syndrome without diarrhea Qualifiers: Irritable bowel syndrome type: unspecified Qualified Code(s): K58.9 - Irritable bowel syndrome without diarrhea (3) Constipation: Status: Acute Code(s): K59.00 - Constipation, unspecified Qualifiers: Constipation type: unspecified constipation type Qualified Code(s): K59.00 - Constipation, unspecified (4) Nausea & vomiting: Status: Acute Code(s): R11.2 - Nausea with vomiting, unspecified Qualifiers: Vomiting type: unspecified Vomiting Intractability: unspecified Qualified Code(s): R11.2 - Nausea with vomiting, unspecified (5) CKD (chronic kidney disease) stage 4, GFR 15-29 ml/min: Status: Chronic Code(s): N18.4 - Chronic kidney disease, stage 4 (severe) Plan: RECOMMENDATIONS: 1. Reinitiate home medications for blood pressure 2. Decrease Cardene as tolerated 3. Dulcolax suppository. Reinitiate home bowel regimen 4. Monitor renal function with daily labs 5. Increase activity as tolerated IMPRESSIONS: 1. Metabolic encephalopathy secondary to hypertensive emergency Patient with decreased mental status at this time. Clinical suspicion for severe hypertension. Patient has not reporting any focal neurologic deficits that would be suggestive of acute hemorrhagic bleed. Will decrease to 185 systolic for today. Clinical suspicion for elevated blood pressure secondary to rebound hypertension. Once home medications can be verified, these should be reinitiated. Wean Cardene as tolerated. Further titration tomorrow if Cardene remains present. 2. Irritable bowel syndrome/nausea vomiting/constipation Complicates overall condition. Unclear if patient is having good absorption at this time. Patient is reporting no bowel movement for 8 days. Dulcolax suppository will be given in addition to baseline medications. Abdomen appears to be soft with no signs of perforation or acute abdomen. Hold on imaging for now. 3. GERD/advanced age/chronic pain/obesity/chronic kidney disease Complicates care, management, recovery and prognosis. No indication for renal replacement therapy at this time. Biopsy is currently pending. Creatinine appears to be at its baseline at this time. Patient reportedly was undergoing outpatient work-up. HPI Consult Data Date of Consult: 09/17/20 HPI Narrative HPI Narrative: LALITA JOINER is a 75-year-old female, with past medical history listed below, who presented to [facility] on 09/17/2020 secondary to decreased responsiveness. Patient reportedly would open her eyes to voice, but quickly fall back asleep which was unusual for her. Patient had had nausea and vomiting since 5 PM on the day prior to presentation. Emesis was described as bilious and patient has had constipation with the last bowel movement approximately 8 days ago. Patient reportedly did not have any fevers or chills. Patient was not complaining of any shortness of breath, chest pain or palpitations. Patient had reported a headache 2 days ago. Per the patient's , patient did have a kidney biopsy this week that threw off the routine. Medications were sporadic for the remaining of the week. In the ER, patient was noted to have a blood pressure of 224/102 with a heart rate between 80 and 90. In the ER, patient received hydralazine and labetalol with very little improvement in blood pressure. Systolic blood pressures were noted to be as high as 250. Nephrology was consulted and patient was placed on a nicardipine drip and transmitted to the intensive care unit for further evaluation. Patient did receive Zofran. Laboratory work-up was relatively unremarkable except for some hypokalemia at 3.1 and creatinine of 2.73. Liver function studies were unremarkable. An accurate home medication list was not available from the ER. Since being the intensive care unit, patient has responded well to nicardipine. Patient is still drowsy, but will open her eyes. Patient is not able to provide much additional history. Patient with no real complaints at this time. Patient is not reporting significant abdominal pain, but does verify that she has not had a bowel movement in over 5 days. Patient reportedly uses Metamucil and MiraLAX at home. Patient reports that she has not been right on her medications since her biopsy. Patient denies any new exposures or trauma. No focal neurologic deficits have been reported by the patient or her . Patient reportedly does not follow any specific diets. Review of systems otherwise negative from a constitutional, HEENT, respiratory, cardiovascular, GI, genitourinary, musculoskeletal, skin, neurologic, psychiatric and hematologic system unless stated above. [facility] Medical History Cholecystectomy planned CKD (chronic kidney disease) stage 4, GFR 15-29 ml/min HTN (hypertension) Kidney disease Kidney stones Migraines Non-smoker Home Medications lansoprazole 15 mg PO DAILY 04/27/19 [History Last Taken Unknown] dicyclomine 10 mg PO ACHS 07/31/20 [History Last Taken Unknown] bumetanide 1 mg PO DAILY 09/13/20 [History Last Taken Unknown] cephalexin 250 mg PO BID 09/13/20 [History Last Taken Unknown] Allergy/AdvReac Type Severity Reaction Status Date / Time codeine Allergy Nausea Verified 09/17/20 02:47 NARCOTICS AdvReac Upset Uncoded 09/17/20 02:47 Stomach Family History Other CVA (cerebral vascular accident) Heart disease Surgical History H/O: hysterectomy History of cholecystectomy Hx of appendectomy Social History Smoking Status: Never smoker ROS ROS Narrative See HPI Physical Exam Const oriented x3 General Appearance: cooperative and lethargic Orientation / Consciousness: other Other Details: Opens eyes to voice, but falls asleep readily. HEENT normocephalic Head and Scalp: atraumatic Eyes PERRL and EOMs intact bilaterally Neck supple, no JVD and no carotid bruits Resp normal respiratory effort and clear to auscultation bilaterally Cardio regular rate and no murmurs GI normal to inspection, nondistended, normoactive bowel sounds and soft to palpation Extremity normal capillary refill General Extremity: Negative for edema Skin no rashes or lesions noted Neuro CN's II-XII intact bilaterally Psych cooperative and affect normal Lab / Micro Data Result Diagrams: 09/17/20 03:52 09/17/20 03:52 Labs: Laboratory Results - last 24 hr 09/17/20 09/17/20 09/17/20 02:53 02:53 03:52 WBC Cancelled 8.7 Corrected WBC Cancelled RBC Cancelled 4.48 Hgb Cancelled 13.6 Hct Cancelled 40.6 MCV Cancelled 90.6 MCH Cancelled 30.4 MCHC Cancelled 33.5 RDW Std Deviation Cancelled 43.4 RDW Coeff of Ricky Cancelled 13.0 Plt Count Cancelled 259 MPV Cancelled 9.9 Immature Gran % (Auto) Cancelled 0.300 Neut % (Auto) Cancelled 92.0 H Lymph % (Auto) Cancelled 4.5 L [place] % (Auto) Cancelled 2.9 Eos % (Auto) Cancelled 0.0 Baso % (Auto) Cancelled 0.3 Absolute Neuts (auto) Cancelled 8.0 H Absolute Lymphs (auto) Cancelled 0.39 L Total Counted Cancelled Neutrophils % (Manual) Cancelled Band Neutrophils % Cancelled Lymphocytes % (Manual) Cancelled Monocytes % (Manual) Cancelled Eosinophils % (Manual) Cancelled Basophils % (Manual) Cancelled Metamyelocytes % Cancelled Myelocytes % Cancelled Promyelocytes % Cancelled Blast Cells % Cancelled Plasma Cell % (Manual) Cancelled Other Cells % Cancelled Nucleated RBC % Cancelled 0 Nucleated RBCs/100 WBC Cancelled Differential Comment Cancelled SCANNED Diff Path Review Cancelled Hypersegmented Neuts Cancelled Atypical Lymphocytes Cancelled Reactive Lymphocytes Cancelled Smudge Cells Cancelled Toxic Granulation Cancelled Toxic Vacuolation Cancelled Dohle Bodies Cancelled Yoni Rods Cancelled Platelet Estimate Cancelled Plt Morphology Comment Cancelled RBC Morphology Cancelled Polychromasia Cancelled Hypochromasia Cancelled Poikilocytosis Cancelled Basophilic Stippling Cancelled Anisocytosis Cancelled Microcytosis Cancelled Macrocytosis Cancelled Spherocytes Cancelled Sickle Cells Cancelled Target Cells Cancelled Tear Drop Cells Cancelled Ovalocytes Cancelled Stomatocytes Cancelled [place] Bodies Cancelled [place] Cells Cancelled Bite Cells Cancelled Crenated Cell Cancelled Acanthocytes (Spur) Cancelled Rouleaux Cancelled Schistocytes Cancelled Sodium Cancelled Potassium Cancelled Chloride Cancelled Carbon Dioxide Cancelled Anion Gap Cancelled BUN Cancelled Creatinine Cancelled Estim Creat Clear Calc Cancelled Est GFR (MDRD) Af Amer Cancelled Est GFR (MDRD) Non-Af Cancelled BUN/Creatinine Ratio Cancelled Glucose Cancelled Calcium Cancelled Total Bilirubin Cancelled AST Cancelled ALT Cancelled Alkaline Phosphatase Cancelled Troponin I Cancelled Total Protein Cancelled Albumin Cancelled Globulin Cancelled Albumin/Globulin Ratio Cancelled 09/17/20 03:52 WBC Corrected WBC RBC Hgb Hct MCV MCH MCHC RDW Std Deviation RDW Coeff of Ricky Plt Count MPV Immature Gran % (Auto) Neut % (Auto) Lymph % (Auto) [place] % (Auto) Eos % (Auto) Baso % (Auto) Absolute Neuts (auto) Absolute Lymphs (auto) Total Counted Neutrophils % (Manual) Band Neutrophils % Lymphocytes % (Manual) Monocytes % (Manual) Eosinophils % (Manual) Basophils % (Manual) Metamyelocytes % Myelocytes % Promyelocytes % Blast Cells % Plasma Cell % (Manual) Other Cells % Nucleated RBC % Nucleated RBCs/100 WBC Differential Comment Diff Path Review Hypersegmented Neuts Atypical Lymphocytes Reactive Lymphocytes Smudge Cells Toxic Granulation Toxic Vacuolation Dohle Bodies Yoni Rods Platelet Estimate Plt Morphology Comment RBC Morphology Polychromasia Hypochromasia Poikilocytosis Basophilic Stippling Anisocytosis Microcytosis Macrocytosis Spherocytes Sickle Cells Target Cells Tear Drop Cells Ovalocytes Stomatocytes [place] Bodies [place] Cells Bite Cells Crenated Cell Acanthocytes (Spur) Rouleaux Schistocytes Sodium 136 Potassium 3.1 L Chloride 99 Carbon Dioxide 29.0 Anion Gap 8 BUN 23 H Creatinine 2.73 H Estim Creat Clear Calc 14.90 Est GFR (MDRD) Af Amer 22 L Est GFR (MDRD) Non-Af 18 L BUN/Creatinine Ratio 8.4 L Glucose 135 H Calcium 8.6 Total Bilirubin 0.60 AST 16 ALT 16 Alkaline Phosphatase 111 Troponin I 0.040 Total Protein 6.3 L Albumin 2.9 L Globulin 3.4 Albumin/Globulin Ratio 0.9 Charges/Coding Visit Charges Inpatient E&M: 09469 Init Hosp L3
[2020-09-17] MEDS: Bisacodyl 10 MG Suppository RC (11:09)
[2020-09-17] MEDS: Polyethylene Glycol 3350 17 GM PACKET PO (11:40)
[2020-09-17] MEDS: Psyllium 1 PACKET PO (11:40)
[2020-09-17 11:43] LABS: Color, Urine Yellow (Yellow); Glucose, Dipstick 50 mg/dl (Normal); Ketone-Dipstick 50 mg/dl (Negative); Leukocyte Esterase-Dipstick Negative /ul (Negative); Nitrite-Dipstick Positive (Negative); Occult Blood-Urine 25 /ul (Negative); Protein-Dipstick 500 mg/dl (Negative); Urine Bilirubin Dipstick Negative (Negative); Urine Clarity Clear (Clear); Urine Urobilinogen Normal (Normal)
[2020-09-17 11:51] LABS: Mucous, Urine 0 SEEN /hpf (<or=2+); Red Blood Cells-Urine 0 SEEN /hpf (0-5); Squamous Epithelial Cells - UA 0 SEEN /hpf (5-10)
[2020-09-17 11:52] LABS: Bacteria 1+ /hpf (None Seen); White Blood Cells 0-5 SEEN /hpf (0-5)
--- NOTE | 2020-09-17 13:45 | CASEMGMT ---
RN CM NOTE: Pt w/altered mental status and drowsy today. RN CM attempted to contact pt's for initial RN CM assessment. No answer. RN CM to attempt again at a later time. Ru ORON DAXA CM
[2020-09-17] MEDS: Heparin Injection (Vial) 5,000 UNIT/ML VIAL 5000 UNIT SC ×2 (13:53→22:00)
[2020-09-17] MEDS: hydrALAZINE 50 MG Tablet PO ×2 (13:54→19:47)
[2020-09-17] MEDS: Dicyclomine 10 MG Capsule PO ×3 (13:54→22:00)
[2020-09-17] MEDS: Aspirin 81 MG TAB.CHEW PO (13:55)
[2020-09-17] MEDS: Bumetanide 0.5 MG Tablet 1 MG PO (13:55)
[2020-09-17] MEDS: Pantoprazole Sodium 20 MG Tablet PO (13:55)
--- NOTE | 2020-09-17 14:25 | PN.HOSP_ITS ---
Subjective Subjective: Feeling well. Had not taken meds for a couple of days after her renal biopsy. Feels fine currently. Objective Data Objective Data Vital Signs: Vital Signs Temp Pulse Resp BP Pulse Ox 37.2 C 93 17 155/88 H 97 09/17/20 14:00 09/17/20 14:00 09/17/20 14:00 09/17/20 14:15 09/17/20 14:00 Oxygen Delivery Method Room Air Weight: 170 lb 3.15 oz Body Mass Index (BMI) 29.2 Finger Stick Blood Glucose 103 Intake & Output: Intake and Output for Last 24 Hours 09/15/20 09/16/20 09/17/20 23:59 23:59 23:59 Intake Total 500.00 / 500.00 Balance 500.00 / 500.00 Lab / Micro Data Result Diagrams: 09/17/20 03:52 09/17/20 03:52 Labs: Laboratory Results - last 24 hr 09/17/20 09/17/20 09/17/20 02:53 02:53 03:52 WBC Cancelled 8.7 Corrected WBC Cancelled RBC Cancelled 4.48 Hgb Cancelled 13.6 Hct Cancelled 40.6 MCV Cancelled 90.6 MCH Cancelled 30.4 MCHC Cancelled 33.5 RDW Std Deviation Cancelled 43.4 RDW Coeff of Ricky Cancelled 13.0 Plt Count Cancelled 259 MPV Cancelled 9.9 Immature Gran % (Auto) Cancelled 0.300 Neut % (Auto) Cancelled 92.0 H Lymph % (Auto) Cancelled 4.5 L [place] % (Auto) Cancelled 2.9 Eos % (Auto) Cancelled 0.0 Baso % (Auto) Cancelled 0.3 Absolute Neuts (auto) Cancelled 8.0 H Absolute Lymphs (auto) Cancelled 0.39 L Total Counted Cancelled Neutrophils % (Manual) Cancelled Band Neutrophils % Cancelled Lymphocytes % (Manual) Cancelled Monocytes % (Manual) Cancelled Eosinophils % (Manual) Cancelled Basophils % (Manual) Cancelled Metamyelocytes % Cancelled Myelocytes % Cancelled Promyelocytes % Cancelled Blast Cells % Cancelled Plasma Cell % (Manual) Cancelled Other Cells % Cancelled Nucleated RBC % Cancelled 0 Nucleated RBCs/100 WBC Cancelled Differential Comment Cancelled SCANNED Diff Path Review Cancelled Hypersegmented Neuts Cancelled Atypical Lymphocytes Cancelled Reactive Lymphocytes Cancelled Smudge Cells Cancelled Toxic Granulation Cancelled Toxic Vacuolation Cancelled Dohle Bodies Cancelled Yoni Rods Cancelled Platelet Estimate Cancelled Plt Morphology Comment Cancelled RBC Morphology Cancelled Polychromasia Cancelled Hypochromasia Cancelled Poikilocytosis Cancelled Basophilic Stippling Cancelled Anisocytosis Cancelled Microcytosis Cancelled Macrocytosis Cancelled Spherocytes Cancelled Sickle Cells Cancelled Target Cells Cancelled Tear Drop Cells Cancelled Ovalocytes Cancelled Stomatocytes Cancelled [place] Bodies Cancelled [place] Cells Cancelled Bite Cells Cancelled Crenated Cell Cancelled Acanthocytes (Spur) Cancelled Rouleaux Cancelled Schistocytes Cancelled Sodium Cancelled Potassium Cancelled Chloride Cancelled Carbon Dioxide Cancelled Anion Gap Cancelled BUN Cancelled Creatinine Cancelled Estim Creat Clear Calc Cancelled Est GFR (MDRD) Af Amer Cancelled Est GFR (MDRD) Non-Af Cancelled BUN/Creatinine Ratio Cancelled Glucose Cancelled Calcium Cancelled Total Bilirubin Cancelled AST Cancelled ALT Cancelled Alkaline Phosphatase Cancelled Troponin I Cancelled Total Protein Cancelled Albumin Cancelled Globulin Cancelled Albumin/Globulin Ratio Cancelled Urine Color Urine Clarity Urine pH Ur Specific [place] Urine Protein Urine Glucose (UA) Urine Ketones Urine Occult Blood Urine Nitrite Urine Bilirubin Urine Urobilinogen Ur Leukocyte Esterase Urine RBC Urine WBC Ur Squamous Epith Cells Urine Bacteria Urine Mucus 09/17/20 09/17/20 03:52 11:55 WBC Corrected WBC RBC Hgb Hct MCV MCH MCHC RDW Std Deviation RDW Coeff of Ricky Plt Count MPV Immature Gran % (Auto) Neut % (Auto) Lymph % (Auto) [place] % (Auto) Eos % (Auto) Baso % (Auto) Absolute Neuts (auto) Absolute Lymphs (auto) Total Counted Neutrophils % (Manual) Band Neutrophils % Lymphocytes % (Manual) Monocytes % (Manual) Eosinophils % (Manual) Basophils % (Manual) Metamyelocytes % Myelocytes % Promyelocytes % Blast Cells % Plasma Cell % (Manual) Other Cells % Nucleated RBC % Nucleated RBCs/100 WBC Differential Comment Diff Path Review Hypersegmented Neuts Atypical Lymphocytes Reactive Lymphocytes Smudge Cells Toxic Granulation Toxic Vacuolation Dohle Bodies Yoni Rods Platelet Estimate Plt Morphology Comment RBC Morphology Polychromasia Hypochromasia Poikilocytosis Basophilic Stippling Anisocytosis Microcytosis Macrocytosis Spherocytes Sickle Cells Target Cells Tear Drop Cells Ovalocytes Stomatocytes [place] Bodies Asael Cells Bite Cells Crenated Cell Acanthocytes (Spur) Rouleaux Schistocytes Sodium 136 Potassium 3.1 L Chloride 99 Carbon Dioxide 29.0 Anion Gap 8 BUN 23 H Creatinine 2.73 H Estim Creat Clear Calc 14.90 Est GFR (MDRD) Af Amer 22 L Est GFR (MDRD) Non-Af 18 L BUN/Creatinine Ratio 8.4 L Glucose 135 H Calcium 8.6 Total Bilirubin 0.60 AST 16 ALT 16 Alkaline Phosphatase 111 Troponin I 0.040 Total Protein 6.3 L Albumin 2.9 L Globulin 3.4 Albumin/Globulin Ratio 0.9 Urine Color Yellow Urine Clarity Clear Urine pH 7.0 Ur Specific [place] 1.010 Urine Protein 500 H Urine Glucose (UA) 50 H Urine Ketones 50 H Urine Occult Blood 25 H Urine Nitrite Positive H Urine Bilirubin Negative Urine Urobilinogen Normal Ur Leukocyte Esterase Negative Urine RBC 0 SEEN Urine WBC 0-5 SEEN Ur Squamous Epith Cells 0 SEEN Urine Bacteria 1+ Urine Mucus 0 SEEN Physical Exam Narrative NAD. afebrile. Const alert and oriented x3 HEENT head/scalp atraumatic Head and Scalp: normocephalic Eyes PERRL Resp normal respiratory effort and clear to auscultation bilaterally Cardio regular rate, regular rhythm, S1 normal heart sound and S2 normal heart sound GI normal to inspection, nondistended, normoactive bowel sounds, non-tender and non-distended Assessment & Plan Assessment/Plan (1) Hypertensive emergency: Status: Acute Code(s): I16.1 - Hypertensive emergency Plan: Greatly improved with nicardipine gtt Resume home meds Nicardipine gtt weaned off Exacerbated by not taking her medications Plan is to observe overnight and if stable, likely could DC 09/16 Visit Charges Inpatient E&M: 09768 Subs Hosp L2
[2020-09-17] MEDS: Potassium Chloride Oral Tablet 20 MEQ 40 MEQ PO (18:33)
--- NOTE | 2020-09-17 19:21 | CON.PCM.RE_ITS ---
Assessment & Plan Assessment/Plan (1) CKD (chronic kidney disease) stage 4, GFR 15-29 ml/min: Status: Chronic Code(s): N18.4 - Chronic kidney disease, stage 4 (severe) Plan: The patient has known chronic kidney disease stage IV with baseline serum creatinine of around 2.9 mg/dL. Current renal function is not much different than baseline. There is no new MONICA. The patient also has known nephrotic range proteinuria and hypoalbuminemia. She underwent a kidney biopsy on 09/13/2020. We will track down pathology result from [facility] on Saturday. Continue to monitor renal function as we are doing. There is no need for kidney replacement therapy at this point. Current medications are reviewed and are appropriately dosed for her estimated creatinine clearance. (2) Hypertensive urgency: Status: Acute Code(s): I16.0 - Hypertensive urgency Plan: The patient had uncontrolled blood pressure on presentation. This is secondary to nonadherence to prescribed antihypertensives. There is no new apparent organ damage. Blood pressure improved with nicardipine drip, and she is being transitioned to oral antihypertensives. (3) Hypokalemia: Status: Acute Code(s): E87.6 - Hypokalemia Plan: Suspect that hypokalemia is due to vomiting and subsequent metabolic alkalosis. The patient had also been on bumetanide prior to admission, so this may have exacerbated the renal potassium loss. Replace potassium deficit as needed. We will also check serum magnesium level tomorrow. I believe that the patient has been worked up by Dr. Castro for secondary hypertension, including hyperaldosteronism, already. I will check our office chart. (4) Anasarca associated with disorder of kidney: Status: Acute Code(s): N04.9 - Nephrotic syndrome with unspecified morphologic changes Plan: Anasarca is likely related to hypoalbuminemia and proteinuria. We will track down the results of the kidney biopsy from earlier in the week. HPI Consult Data Date of Consult: 09/17/20 HPI Narrative HPI Narrative: The patient is a 75-year-old woman who is known to our service with chronic kidney disease stage IV with nephrotic range proteinuria. The patient is followed as outpatient by Dr. Castro. The patient just underwent a kidney biopsy on 09/13/2020. The patient presented to the hospital yesterday evening with intractable nausea and vomiting. The patient was also found to have systolic blood pressure of over 220 mmHg. The patient has not been taking the prescribed antihypertensives because she was not feeling well. She does complain of constipation which is chronic. She denies chest pain, shortness of breath, nausea, or vomiting. The patient has chronic lower extremity edema and anasarca. She has known nephrotic range proteinuria and hypoalbuminemia. The patient was admitted to ICU for nicardipine drip. She was able to come off of nicardipine drip a few hours ago. She has been able to keep down her usual oral antihypertensives which are hydralazine, labetalol, and bumetanide. [facility] Medical History Cholecystectomy planned CKD (chronic kidney disease) stage 4, GFR 15-29 ml/min HTN (hypertension) Kidney disease Kidney stones Migraines Non-smoker Home Medications dicyclomine 10 mg PO 4X/DAY 07/31/20 [History Last Taken Unknown] cephalexin 250 mg PO BID 09/13/20 [History Last Taken Unknown] aspirin [Baby Aspirin] 81 mg PO DAILY 09/17/20 [History Last Taken Unknown] atorvastatin [Lipitor] 40 mg PO QHS 09/17/20 [History Last Taken Unknown] bumetanide 1 mg PO DAILY 09/17/20 [History Last Taken Unknown] [id number] [Fioricet] 1 tab PO Q6H PRN 09/17/20 [History Last Taken Unknown] fluticasone propionate [Flonase] 1 spray INTRANASAL DAILY 09/17/20 [History Last Taken Unknown] hydralazine 50 mg PO TID 09/17/20 [History Last Taken Unknown] labetalol 200 mg PO TID 09/17/20 [History Last Taken Unknown] lansoprazole 15 mg PO DAILY 09/17/20 [History Last Taken Unknown] polyethylene glycol 3350 [Miralax] 17 g PO DAILY 09/17/20 [History Last Taken Unknown] psyllium [Metamucil] 1 packet PO DAILY 09/17/20 [History Last Taken Unknown] Allergy/AdvReac Type Severity Reaction Status Date / Time codeine Allergy Nausea Verified 09/17/20 02:47 NARCOTICS AdvReac Upset Uncoded 09/17/20 02:47 Stomach Family History Other CVA (cerebral vascular accident) Heart disease Surgical History H/O: hysterectomy History of cholecystectomy Hx of appendectomy Social History Smoking Status: Never smoker ROS Constitutional Constitutional: Reports daytime sleepiness, fatigue, lethargy, malaise and poor appetite Eyes Eyes: Reports other; Denies blindness, blind spots, blurry vision or change in vision ENT HEENT: Reports systems reviewed and no addt'l complaints, except as documented Cardiovascular Cardiovascular: Reports as per HPI; Denies chest pain, claudication, clubbing, dyspnea at rest or racing heartbeat Respiratory/Chest Respiratory/Chest: Denies chest congestion, cough, dyspnea, shortness of breath at rest or wheezing Gastrointestinal Gastrointestinal: Reports constipation, cramping and dry heaves; Denies diarrhea, heartburn, hematemesis or hematochezia Genitourinary Genitourinary: Reports as per HPI Musculoskeletal Musculoskeletal: Reports systems reviewed and no addt'l complaints, except as documented Integumentary Integumentary: Reports systems reviewed and no addt'l complaints, except as documented Neurologic Neurologic: Reports systems reviewed and no addt'l complaints, except as documented Psychiatric Psychiatric: Reports systems reviewed and no addt'l complaints, except as documented Endocrine Endocrinology: Reports systems reviewed and no addt'l complaints, except as documented Physical Exam Const Constitutional Narrative: Alert and oriented x3 no apparent distress HEENT HEENT Narrative: Normocephalic atraumatic, mucous membrane moist. Normal oropharynx. Eyes Eyes Narrative: Pupils equal round react to light, extraocular motion intact. Neck Neck Narrative: Neck is supple without JVD. Chest inspection of chest normal Resp clear to auscultation bilaterally Cardio Cardio Narrative: Normal S1 and S2. No rubs murmurs or gallops. GI GI Narrative: Normal bowel sounds. Abdomen soft, nontender no guarding or rebound. No abdominal bruit. Extremity Extremity Narrative: 3+ lower extremity edema. There is 2+ upper extremity edema including her hands. Neuro Neuro Narrative: No focal neurologic deficits. Lab / Micro Data Result Diagrams: 09/17/20 03:52 09/17/20 03:52 Labs: Laboratory Results - last 24 hr 09/17/20 09/17/20 09/17/20 02:53 02:53 03:52 WBC Cancelled 8.7 Corrected WBC Cancelled RBC Cancelled 4.48 Hgb Cancelled 13.6 Hct Cancelled 40.6 MCV Cancelled 90.6 MCH Cancelled 30.4 MCHC Cancelled 33.5 RDW Std Deviation Cancelled 43.4 RDW Coeff of Ricky Cancelled 13.0 Plt Count Cancelled 259 MPV Cancelled 9.9 Immature Gran % (Auto) Cancelled 0.300 Neut % (Auto) Cancelled 92.0 H Lymph % (Auto) Cancelled 4.5 L [place] % (Auto) Cancelled 2.9 Eos % (Auto) Cancelled 0.0 Baso % (Auto) Cancelled 0.3 Absolute Neuts (auto) Cancelled 8.0 H Absolute Lymphs (auto) Cancelled 0.39 L Total Counted Cancelled Neutrophils % (Manual) Cancelled Band Neutrophils % Cancelled Lymphocytes % (Manual) Cancelled Monocytes % (Manual) Cancelled Eosinophils % (Manual) Cancelled Basophils % (Manual) Cancelled Metamyelocytes % Cancelled Myelocytes % Cancelled Promyelocytes % Cancelled Blast Cells % Cancelled Plasma Cell % (Manual) Cancelled Other Cells % Cancelled Nucleated RBC % Cancelled 0 Nucleated RBCs/100 WBC Cancelled Differential Comment Cancelled SCANNED Diff Path Review Cancelled Hypersegmented Neuts Cancelled Atypical Lymphocytes Cancelled Reactive Lymphocytes Cancelled Smudge Cells Cancelled Toxic Granulation Cancelled Toxic Vacuolation Cancelled Dohle Bodies Cancelled Yoni Rods Cancelled Platelet Estimate Cancelled Plt Morphology Comment Cancelled RBC Morphology Cancelled Polychromasia Cancelled Hypochromasia Cancelled Poikilocytosis Cancelled Basophilic Stippling Cancelled Anisocytosis Cancelled Microcytosis Cancelled Macrocytosis Cancelled Spherocytes Cancelled Sickle Cells Cancelled Target Cells Cancelled Tear Drop Cells Cancelled Ovalocytes Cancelled Stomatocytes Cancelled [place] Bodies Cancelled [place] Cells Cancelled Bite Cells Cancelled Crenated Cell Cancelled Acanthocytes (Spur) Cancelled Rouleaux Cancelled Schistocytes Cancelled Sodium Cancelled Potassium Cancelled Chloride Cancelled Carbon Dioxide Cancelled Anion Gap Cancelled BUN Cancelled Creatinine Cancelled Estim Creat Clear Calc Cancelled Est GFR (MDRD) Af Amer Cancelled Est GFR (MDRD) Non-Af Cancelled BUN/Creatinine Ratio Cancelled Glucose Cancelled Calcium Cancelled Total Bilirubin Cancelled AST Cancelled ALT Cancelled Alkaline Phosphatase Cancelled Troponin I Cancelled Total Protein Cancelled Albumin Cancelled Globulin Cancelled Albumin/Globulin Ratio Cancelled Urine Color Urine Clarity Urine pH Ur Specific [place] Urine Protein Urine Glucose (UA) Urine Ketones Urine Occult Blood Urine Nitrite Urine Bilirubin Urine Urobilinogen Ur Leukocyte Esterase Urine RBC Urine WBC Ur Squamous Epith Cells Urine Bacteria Urine Mucus 09/17/20 09/17/20 03:52 11:55 WBC Corrected WBC RBC Hgb Hct MCV MCH MCHC RDW Std Deviation RDW Coeff of Ricky Plt Count MPV Immature Gran % (Auto) Neut % (Auto) Lymph % (Auto) [place] % (Auto) Eos % (Auto) Baso % (Auto) Absolute Neuts (auto) Absolute Lymphs (auto) Total Counted Neutrophils % (Manual) Band Neutrophils % Lymphocytes % (Manual) Monocytes % (Manual) Eosinophils % (Manual) Basophils % (Manual) Metamyelocytes % Myelocytes % Promyelocytes % Blast Cells % Plasma Cell % (Manual) Other Cells % Nucleated RBC % Nucleated RBCs/100 WBC Differential Comment Diff Path Review Hypersegmented Neuts Atypical Lymphocytes Reactive Lymphocytes Smudge Cells Toxic Granulation Toxic Vacuolation Dohle Bodies Yoni Rods Platelet Estimate Plt Morphology Comment RBC Morphology Polychromasia Hypochromasia Poikilocytosis Basophilic Stippling Anisocytosis Microcytosis Macrocytosis Spherocytes Sickle Cells Target Cells Tear Drop Cells Ovalocytes Stomatocytes [place] Bodies [place] Cells Bite Cells Crenated Cell Acanthocytes (Spur) Rouleaux Schistocytes Sodium 136 Potassium 3.1 L Chloride 99 Carbon Dioxide 29.0 Anion Gap 8 BUN 23 H Creatinine 2.73 H Estim Creat Clear Calc 14.90 Est GFR (MDRD) Af Amer 22 L Est GFR (MDRD) Non-Af 18 L BUN/Creatinine Ratio 8.4 L Glucose 135 H Calcium 8.6 Total Bilirubin 0.60 AST 16 ALT 16 Alkaline Phosphatase 111 Troponin I 0.040 Total Protein 6.3 L Albumin 2.9 L Globulin 3.4 Albumin/Globulin Ratio 0.9 Urine Color Yellow Urine Clarity Clear Urine pH 7.0 Ur Specific [place] 1.010 Urine Protein 500 H Urine Glucose (UA) 50 H Urine Ketones 50 H Urine Occult Blood 25 H Urine Nitrite Positive H Urine Bilirubin Negative Urine Urobilinogen Normal Ur Leukocyte Esterase Negative Urine RBC 0 SEEN Urine WBC 0-5 SEEN Ur Squamous Epith Cells 0 SEEN Urine Bacteria 1+ Urine Mucus 0 SEEN
[2020-09-17] MEDS: Atorvastatin Calcium 40 MG Tablet PO (22:00)
[2020-09-18] VITALS (28 sets, daily range): BP systolic 169–218; BP diastolic 69–95; PULSE 73–92; RESP 12–21; TEMP 36.5–37.3; O2SAT 94–98
[2020-09-18] MEDS: Labetalol 200 MG Tablet PO ×3 (04:29→20:42)
[2020-09-18] MEDS: hydrALAZINE 50 MG Tablet PO ×2 (04:29→13:00)
[2020-09-18] MEDS: 0.9% Saline Lock 10 ML Syringe IV ×5 (04:30→23:26)
[2020-09-18 04:38] LABS: Absolute Lymphocyte Count 0.79 X10^3/uL (0.83-4.51); Absolute Neutrophil Count 8.6 X10^3/uL (2.0-7.7); Basophil# 0.04 X10^3/uL; Basophil% 0.4 % (0-1); Eosinophil# 0.02 X10^3/uL; Eosinophils% 0.2 % (0-5); Hematocrit 36.9 % (37-47); Hemoglobin 12.4 g/dL (12.0-15.0); Lymphocyte # 0.79 X10^3/ul (0.83-4.51); Lymphocyte % 7.9 % (19-41); Mean Corp Hgb Conc 33.6 g/dL (32-36); Mean Corpuscular Hgb 30.4 pg (27.0-32.0); Mean Corpuscular Volume 90.4 fL (81-99); Monocyte# 0.64 X10^3/uL; Monocyte% 6.4 % (0-10); NRBC Flagged by Analyzer 0 % (0-5); Neutrophil # 8.55 X10^3/uL (2.7-7.7); Neutrophil % 84.9 % (47-70); Platelet Count 282 K/mm3 (150-450); RBC Distribution Width CV 13.2 % (11.6-14.6); RBC Distribution Width SD 43.8 fl (35.1-43.9); Red Blood Count 4.08 M/mm3 (4.2-5.4); White Blood Count 10.1 K/mm3 (4.4-11.0)
[2020-09-18 04:56] LABS: Anion Gap 8 (5-15); BUN 27 mg/dL (7-18); BUN/Creat Ratio 9.2 RATIO (10-20); Calcium,Total 8.5 mg/dL (8.5-10.1); Chloride 99 mmol/L (98-107); Creatinine, Serum 2.93 mg/dL (0.55-1.02); EST Glomerular Filtration Rate 17 mL/min (>60); Est Glom Filt Rate - Afr Amer 20 mL/min (>60); Estimated Creatinine Clearance 13.89 ml/min; Glucose 99 mg/dL (74-106); Potassium 3.3 mmol/L (3.5-5.1); Sodium Level 134 mmol/L (136-145)
--- NOTE | 2020-09-18 07:12 | PN.CC_ITS ---
Subjective Subjective: Patient did well overnight. Patient's blood pressure did trend up, but Cardene did not have to be reinitiated. Patient's antihypertensives were given early in both evening and morning rounds. Patient reports she feels subjectively improved. Patient is not having any more cloudy thoughts. Patient denies any headache. Patient had a couple small smear bowel movements overnight, but is not reporting any abdominal pain. Objective Data Objective Data Vital Signs: Vital Signs Temp Pulse Resp BP Pulse Ox 37.2 C 78 18 177/69 H 96 09/18/20 04:00 09/18/20 06:00 09/18/20 06:00 09/18/20 06:00 09/18/20 06:49 Oxygen Delivery Method Room Air Weight: 77.3 kg Body Mass Index (BMI) 29.2 Finger Stick Blood Glucose 103 Intake & Output: Intake and Output for Last 24 Hours 09/16/20 09/17/20 09/18/20 23:59 23:59 23:59 Intake Total 830.00 / 830.00 120 / 120 Output Total 550 / 550 Balance 280.00 / 280.00 120 / 120 Lab / Micro Data Result Diagrams: 09/18/20 04:30 09/18/20 04:30 Labs: Laboratory Results - last 24 hr 09/17/20 09/18/20 09/18/20 11:55 04:30 04:30 WBC 10.1 RBC 4.08 L Hgb 12.4 Hct 36.9 L MCV 90.4 MCH 30.4 MCHC 33.6 RDW Std Deviation 43.8 RDW Coeff of Ricky 13.2 Plt Count 282 MPV 10.0 Immature Gran % (Auto) 0.200 Neut % (Auto) 84.9 H Lymph % (Auto) 7.9 L [place] % (Auto) 6.4 Eos % (Auto) 0.2 Baso % (Auto) 0.4 Absolute Neuts (auto) 8.6 H Absolute Lymphs (auto) 0.79 L Nucleated RBC % 0 Sodium 134 L Potassium 3.3 L Chloride 99 Carbon Dioxide 27.0 Anion Gap 8 BUN 27 H Creatinine 2.93 H Estim Creat Clear Calc 13.89 Est GFR (MDRD) Af Amer 20 L Est GFR (MDRD) Non-Af 17 L BUN/Creatinine Ratio 9.2 L Glucose 99 Calcium 8.5 Magnesium 2.0 Urine Color Yellow Urine Clarity Clear Urine pH 7.0 Ur Specific [place] 1.010 Urine Protein 500 H Urine Glucose (UA) 50 H Urine Ketones 50 H Urine Occult Blood 25 H Urine Nitrite Positive H Urine Bilirubin Negative Urine Urobilinogen Normal Ur Leukocyte Esterase Negative Urine RBC 0 SEEN Urine WBC 0-5 SEEN Ur Squamous Epith Cells 0 SEEN Urine Bacteria 1+ Urine Mucus 0 SEEN Physical Exam Const oriented x3 General Appearance: cooperative and lethargic Orientation / Consciousness: other Other Details: Opens eyes to voice, but falls asleep readily. HEENT normocephalic Eyes PERRL and EOMs intact bilaterally Neck supple, no JVD and no carotid bruits Resp normal respiratory effort and clear to auscultation bilaterally Cardio regular rate and no murmurs GI normal to inspection, nondistended, normoactive bowel sounds and soft to palpation Extremity normal capillary refill General Extremity: Negative for edema Skin no rashes or lesions noted Neuro CN's II-XII intact bilaterally Psych cooperative and affect normal Assessment & Plan Assessment/Plan (1) Hypertensive emergency: Status: Acute Code(s): I16.1 - Hypertensive emergency (2) Irritable bowel syndrome: Status: Chronic Code(s): K58.9 - Irritable bowel syndrome without diarrhea Qualifiers: Irritable bowel syndrome type: unspecified Qualified Code(s): K58.9 - I rritable bowel syndrome without diarrhea (3) Constipation: Status: Acute Code(s): K59.00 - Constipation, unspecified Qualifiers: Constipation type: unspecified constipation type Qualified Code(s): K59.00 - Constipation, unspecified (4) Nausea & vomiting: Status: Acute Code(s): R11.2 - Nausea with vomiting, unspecified Qualifiers: Vomiting type: unspecified Vomiting Intractability: unspecified Qualified Code(s): R11.2 - Nausea with vomiting, unspecified (5) CKD (chronic kidney disease) stage 4, GFR 15-29 ml/min: Status: Chronic Code(s): N18.4 - Chronic kidney disease, stage 4 (severe) Plan: RECOMMENDATIONS: 1. Continue home medications for blood pressure 2. Consider initiation of Norvasc. Defer to nephrology 3. Continue home bowel regimen 4. Monitor renal function with daily labs 5. Increase activity as tolerated IMPRESSIONS: 1. Metabolic encephalopathy secondary to hypertensive emergency Patient with decreased mental status at this time. Clinical suspicion for severe hypertension. Patient has not reporting any focal neurologic deficits that would be suggestive of acute hemorrhagic bleed. Continued optimization through today. Clinical suspicion for an element of elevated blood pressure secondary to rebound hypertension. Patient is no longer requiring Cardene. Will sign off from a critical care perspective. Further optimization per nephrology. 2. Irritable bowel syndrome/nausea vomiting/constipation Complicates overall condition. Unclear if patient is having good absorption at this time. Patient is reporting no bowel movement for 8 days. Dulcolax suppository will be given in addition to baseline medications. Abdomen appears to be soft with no signs of perforation or acute abdomen. Hold on imaging for now. 3. GERD/advanced age/chronic pain/obesity/chronic kidney disease Complicates care, management, recovery and prognosis. No indication for renal replacement therapy at this time. Biopsy is currently pending. Creatinine appears to be at its baseline at this time. Patient reportedly was undergoing outpatient work-up. Visit Charges Inpatient E&M: [id number] Subs Hosp L2
[2020-09-18] MEDS: amLODIPine 10 MG Tablet PO (09:15)
[2020-09-18] MEDS: hydrALAZINE 20 MG/ML Vial 10 MG IV ×3 (09:25→23:26)
[2020-09-18] MEDS: Aspirin 81 MG TAB.CHEW PO (09:45)
[2020-09-18] MEDS: Dicyclomine 10 MG Capsule PO ×4 (09:45→20:41)
[2020-09-18] MEDS: Bumetanide 0.5 MG Tablet 1 MG PO (09:45)
[2020-09-18] MEDS: Polyethylene Glycol 3350 17 GM PACKET PO (09:45)
[2020-09-18] MEDS: Heparin Injection (Vial) 5,000 UNIT/ML VIAL 5000 UNIT SC ×2 (09:45→20:42)
[2020-09-18] MEDS: Psyllium 1 PACKET PO (09:45)
[2020-09-18] MEDS: Pantoprazole Sodium 20 MG Tablet PO (09:53)
[2020-09-18] MEDS: Senna/Docusate Sodium 1 Tablet 2 TABLET PO ×2 (11:43→20:41)
[2020-09-18] MEDS: Ondansetron 4 MG/2 ML Vial IV ×2 (12:07→20:50)
--- NOTE | 2020-09-18 13:11 | PCM.PN.HOSP ---
Subjective Subjective: constipated. Objective Data Objective Data Vital Signs: Vital Signs Temp Pulse Resp BP Pulse Ox 36.5 C L 77 12 202/87 H 98 09/18/20 11:10 09/18/20 13:00 09/18/20 11:10 09/18/20 12:57 09/18/20 11:10 Oxygen Delivery Method Room Air Weight: 170 lb 6.677 oz Body Mass Index (BMI) 29.2 Finger Stick Blood Glucose 103 Intake & Output: Intake and Output for Last 24 Hours 09/16/20 09/17/20 09/18/20 23:59 23:59 23:59 Intake Total 830.00 / 830.00 120 / 120 Output Total 550 / 550 Balance 280.00 / 280.00 120 / 120 Lab / Micro Data Result Diagrams: 09/18/20 04:30 09/18/20 04:30 Labs: Laboratory Results - last 24 hr 09/18/20 09/18/20 04:30 04:30 WBC 10.1 RBC 4.08 L Hgb 12.4 Hct 36.9 L MCV 90.4 MCH 30.4 MCHC 33.6 RDW Std Deviation 43.8 RDW Coeff of Ricky 13.2 Plt Count 282 MPV 10.0 Immature Gran % (Auto) 0.200 Neut % (Auto) 84.9 H Lymph % (Auto) 7.9 L [place] % (Auto) 6.4 Eos % (Auto) 0.2 Baso % (Auto) 0.4 Absolute Neuts (auto) 8.6 H Absolute Lymphs (auto) 0.79 L Nucleated RBC % 0 Sodium 134 L Potassium 3.3 L Chloride 99 Carbon Dioxide 27.0 Anion Gap 8 BUN 27 H Creatinine 2.93 H Estim Creat Clear Calc 13.89 Est GFR (MDRD) Af Amer 20 L Est GFR (MDRD) Non-Af 17 L BUN/Creatinine Ratio 9.2 L Glucose 99 Calcium 8.5 Magnesium 2.0 Physical Exam Const alert Eyes PERRL Resp normal respiratory effort Cardio regular rate, regular rhythm, S1 normal heart sound and S2 normal heart sound GI normal to inspection, nondistended, normoactive bowel sounds, soft to palpation, non-tender and non-distended Assessment & Plan Assessment/Plan (1) Hypertensive emergency: Status: Acute Code(s): I16.1 - Hypertensive emergency Plan: Greatly improved with nicardipine gtt Resume home meds Nicardipine gtt weaned off Exacerbated by not taking her medications Off nicardipine gtt since 09/17 Back on home meds amlodipine 10 mg added Still hypertensive Add PRN IV hydralazine. Visit Charges Inpatient E&M: 42484 Subs Hosp L2
--- NOTE | 2020-09-18 20:10 | PN.RENAL_ITS ---
Subjective Subjective: Following for chronic kidney disease/nephrotic syndrome and hypertensive urgency. The patient denies current chest pain or shortness of breath at rest. She continues to be nauseated with occasional vomiting. She is constipated. Objective Data Objective Data Vital Signs: Vital Signs Temp Pulse Resp BP Pulse Ox 98.2 F 82 18 184/82 H 96 09/18/20 16:45 09/18/20 16:45 09/18/20 16:45 09/18/20 16:45 09/18/20 16:45 Oxygen Delivery Method Room Air Weight: 170 lb 6.677 oz Body Mass Index (BMI) 29.2 Finger Stick Blood Glucose 103 Intake & Output: Intake and Output for Last 24 Hours 09/16/20 09/17/20 09/18/20 23:59 23:59 23:59 Intake Total 830.00 / 830.00 740 / 740 Output Total 550 / 550 Balance 280.00 / 280.00 740 / 740 Lab / Micro Data Result Diagrams: 09/18/20 04:30 09/18/20 04:30 Labs: Laboratory Results - last 24 hr 09/18/20 09/18/20 04:30 04:30 WBC 10.1 RBC 4.08 L Hgb 12.4 Hct 36.9 L MCV 90.4 MCH 30.4 MCHC 33.6 RDW Std Deviation 43.8 RDW Coeff of Ricky 13.2 Plt Count 282 MPV 10.0 Immature Gran % (Auto) 0.200 Neut % (Auto) 84.9 H Lymph % (Auto) 7.9 L [place] % (Auto) 6.4 Eos % (Auto) 0.2 Baso % (Auto) 0.4 Absolute Neuts (auto) 8.6 H Absolute Lymphs (auto) 0.79 L Nucleated RBC % 0 Sodium 134 L Potassium 3.3 L Chloride 99 Carbon Dioxide 27.0 Anion Gap 8 BUN 27 H Creatinine 2.93 H Estim Creat Clear Calc 13.89 Est GFR (MDRD) Af Amer 20 L Est GFR (MDRD) Non-Af 17 L BUN/Creatinine Ratio 9.2 L Glucose 99 Calcium 8.5 Magnesium 2.0 Physical Exam Const Constitutional Narrative: Alert and oriented x3 no apparent distress Neck Neck Narrative: . Chest inspection of chest normal Resp clear to auscultation bilaterally Cardio Cardio Narrative: Normal S1 and S2. No rubs murmurs or gallops. GI GI Narrative: Normal bowel sounds. Abdomen soft, nontender no guarding or rebound. No abdominal bruit. Extremity Extremity Narrative: 3+ lower extremity edema. There is 2+ upper extremity edema including her hands. Neuro Neuro Narrative: No focal neurologic deficits. Assessment & Plan Assessment/Plan (1) CKD (chronic kidney disease) stage 4, GFR 15-29 ml/min: Status: Chronic Code(s): N18.4 - Chronic kidney disease, stage 4 (severe) Plan: The patient has known chronic kidney disease stage IV with baseline serum creatinine of around 2.9 mg/dL. Current renal function is not much different than baseline. There is no new MONICA. The patient also has known nephrotic range proteinuria and hypoalbuminemia. She underwent a kidney biopsy on 09/13/2020. We will track down pathology result from [facility] on tomorrow. Continue to monitor renal function. There is no need for kidney replacement therapy at this point. Current medications are reviewed and are appropriately dosed for her estimated creatinine clearance. (2) Hypertensive urgency: Status: Acute Code(s): I16.0 - Hypertensive urgency Plan: The patient had uncontrolled blood pressure on presentation. Blood pressure was as high as 252/106 on 09/17/2020. This is secondary to nonadherence to prescribed antihypertensives. There is no new apparent organ damage. Blood pressure has improved. Aim for 20 to 25% improvement in blood pressure over the next 24 hours. No need to normalize blood pressure quickly. Added amlodipine today. Continue labetalol, hydralazine and bumetanide. (3) Hypokalemia: Status: Acute Code(s): E87.6 - Hypokalemia Plan: Suspect that hypokalemia is due to vomiting and subsequent metabolic alkalosis. The patient is also on bumetanide which may have exacerbated the renal potassium loss. Replace potassium deficit as needed. Magnesium level is acceptable at 2.0 mg/dL. I believe that the patient has been worked up by Dr. Castro for secondary hypertension, including hyperaldosteronism, already. Continue to follow potassium and magnesium levels. (4) Anasarca associated with disorder of kidney: Status: Acute Code(s): N04.9 - Nephrotic syndrome with unspecified morphologic changes Plan: Anasarca is likely related to hypoalbuminemia and proteinuria. We will track down the results of the kidney biopsy from earlier in the week.
[2020-09-18] MEDS: hydrALAZINE 50 MG Tablet 100 MG PO (20:41)
[2020-09-18] MEDS: Atorvastatin Calcium 40 MG Tablet PO (20:45)
[2020-09-19] VITALS (14 sets, daily range): BP systolic 156–190; BP diastolic 76–103; PULSE 76–88; RESP 16–18; TEMP 36.4–36.8; O2SAT 96–98
[2020-09-19] MEDS: Labetalol 200 MG Tablet PO ×3 (05:46→21:02)
[2020-09-19] MEDS: hydrALAZINE 50 MG Tablet 100 MG PO ×3 (05:46→20:58)
[2020-09-19 06:41] LABS: Albumin, Serum 2.6 g/dL (3.2-5.0); BUN 28 mg/dL (7-18); BUN/Creat Ratio 10.6 RATIO (10-20); Calcium,Total 8.5 mg/dL (8.5-10.1); Chloride 98 mmol/L (98-107); Creatinine, Serum 2.64 mg/dL (0.55-1.02); EST Glomerular Filtration Rate 19 mL/min (>60); Est Glom Filt Rate - Afr Amer 23 mL/min (>60); Estimated Creatinine Clearance 15.41 ml/min; Glucose 102 mg/dL (74-106); Magnesium 2.2 mg/dL (1.6-2.6); Phosphorus 3.5 mg/dL (2.5-4.9); Potassium 3.1 mmol/L (3.5-5.1); Sodium Level 133 mmol/L (136-145)
--- NOTE | 2020-09-19 09:29 | NURSING ---
Received report from Warren MITTAL.
--- NOTE | 2020-09-19 09:35 | CASEMGMT ---
DAXA TUBBS Assessment: Face to Face with pt for initial transition planning/care coordination assessment. RN ARLEY introduced self and role at [facility], pt voices understanding and consents to assessment. Pt is A/O x4 and answers all questions appropriately at this time. Pt sitting up in chair eating breakfast in no distress. Care providers, pharmacy, and demographics verified/updated. Admitting Dx: hypertensive urgency PCP: Nani Specialists: kush Castro; FLORENTIN Fletcher Preferred [facility]acy: [facility] Insurance: [employer] [facility] Prescription Benefit: yes LW/HPOA: Pt denies having LW/DPOA. LNOK: , Lamont Bustamante Living Arrangements: Pt lives with in a two story house with 14 steps to enter with rails on both sides. Pt is I in ADL's. Denies concerns at home. Transportation: Pt drives self and also available for transportation. Denies concerns. DME/HHC/SNF: Pt has a cane and walker at home. She has built in seats in the shower. Pt denies having any previous HHC or SNF stays. Pt states no concerns with going home at time of dc. Pt states no further concerns/needs. CM to follow. Advised pt to ask CM if any further question/concerns/needs arise, voices understanding. Pt Goal: Home Plan: Home with family support
[2020-09-19] MEDS: Potassium Chloride Oral Tablet 20 MEQ 60 MEQ PO (10:34)
[2020-09-19] MEDS: Aspirin 81 MG TAB.CHEW PO (10:34)
[2020-09-19] MEDS: Dicyclomine 10 MG Capsule PO ×3 (10:34→20:57)
[2020-09-19] MEDS: Senna/Docusate Sodium 1 Tablet 2 TABLET PO ×2 (10:35→20:57)
[2020-09-19] MEDS: amLODIPine 10 MG Tablet PO (10:35)
[2020-09-19] MEDS: Heparin Injection (Vial) 5,000 UNIT/ML VIAL 5000 UNIT SC ×2 (10:36→20:58)
[2020-09-19] MEDS: Polyethylene Glycol 3350 17 GM PACKET PO (10:36)
[2020-09-19] MEDS: Psyllium 1 PACKET PO (10:37)
[2020-09-19] MEDS: 0.9% Saline Lock 10 ML Syringe IV ×3 (10:37→18:21)
[2020-09-19] MEDS: Fluticasone 0.05% 1 SPRAY NASAL.SRY NASAL (10:38)
[2020-09-19] MEDS: Pantoprazole Sodium 20 MG Tablet PO (10:44)
[2020-09-19] MEDS: Bumetanide 0.5 MG Tablet 1 MG PO (11:05)
--- NOTE | 2020-09-19 11:52 | CASEMGMT ---
Pt screened with [facility] Palliative Care Screening Tool, pt did not meet criteria.
--- NOTE | 2020-09-19 13:17 | PCM.PN.HOSP ---
Documented by User: Jimenez ROBLES 09/19/20 15:16 Subjective Subjective: Patient is a 75-year-old female who is resting in the chair, alert and orient x3. Patient reports feeling overall better from yesterday, however reports that she is still severely constipated. Endorses pain with defecation. Denies chest pain, shortness of breath, palpitations, fever, chills, N/V/D. Objective Data Objective Data Vital Signs: Vital Signs Temp Pulse Resp BP Pulse Ox 97.9 F 76 18 156/76 H 96 09/19/20 10:00 09/19/20 10:00 09/19/20 10:00 09/19/20 10:00 09/19/20 10:00 Oxygen Delivery Method Room Air Weight: 171 lb 4.787 oz Body Mass Index (BMI) 29.2 Finger Stick Blood Glucose 103 Intake & Output: Intake and Output for Last 24 Hours 09/17/20 09/18/20 09/19/20 23:59 23:59 23:59 Intake Total 830.00 / 830.00 860 / 860 200 / 200 Output Total 550 / 550 Balance 280.00 / 280.00 860 / 860 200 / 200 Lab / Micro Data Result Diagrams: 09/18/20 04:30 09/19/20 05:28 Labs: Laboratory Results - last 24 hr 09/19/20 05:28 Sodium 133 L Potassium 3.1 L Chloride 98 Carbon Dioxide 26.0 BUN 28 H Creatinine 2.64 H Estim Creat Clear Calc 15.41 Est GFR (MDRD) Af Amer 23 L Est GFR (MDRD) Non-Af 19 L BUN/Creatinine Ratio 10.6 Glucose 102 Calcium 8.5 Phosphorus 3.5 Magnesium 2.2 Albumin 2.6 L Physical Exam Narrative See subjective. Const alert, oriented x3 and no apparent distress HEENT head/scalp atraumatic Head and Scalp: normocephalic Eyes EOMs intact bilaterally Neck no lymphadenopathy, supple and no JVD Resp normal respiratory effort and clear to auscultation bilaterally Cardio regular rate, regular rhythm, no murmurs and no JVD GI normal to inspection, nondistended, normoactive bowel sounds Palpation: firm Extremity normal to inspection and full ROM Skin no rashes or lesions noted and no wounds Neuro CN's II-XII intact bilaterally Psych affect normal Assessment & Plan Assessment/Plan (1) Hypertensive emergency: Status: Acute Code(s): I16.1 - Hypertensive emergency (2) CKD (chronic kidney disease) stage 4, GFR 15-29 ml/min: Status: Chronic Code(s): N18.4 - Chronic kidney disease, stage 4 (severe) (3) Hypokalemia: Status: Acute Code(s): E87.6 - Hypokalemia (4) Anasarca associated with disorder of kidney: Status: Acute Code(s): N04.9 - Nephrotic syndrome with unspecified morphologic changes Plan: 1) Hypertensive emergency Still hypertensive although improved from admission, currently 156/76. Plan; continue hydralazine, Norvasc, bumetanide and labetalol. 2) Hypokalemia Currently 3.1, K-Dur 60 mEq p.o. x1 given this morning. Believe that hypokalemia is due to vomiting and some subsequent metabolic alkalosis. Nephrology following. Plan; continue to monitor BMP. 3 CKD stage 4 w/ Anasarca Nephrology following. Baseline serum creatinine around 2.9 mg/dL, currently 2.64. Plan; continue to monitor renal function. DVT prophylaxis -Heparin SC Patient seen by Jimenez Jaquez PA-C, under the supervision of Dr. Fraser. Documented by User: Dr. Sarah Fraser MD 09/19/20 16:08 Objective Data Lab / Micro Data Result Diagrams: 09/18/20 04:30 09/19/20 05:28 Assessment & Plan Addt'l Comments Patient seen by Jimenez Jaquez PA-C under my supervision. Patient is a 75 y/o female was admitted for hypertensive emergency. It is improved also nicardipine drip. She is now off nicardipine. Patient admits to not being compliant with her medication. Patient seen and examined today. She complains of constipation which is chronic but had no other complaints. Review of systems otherwise negative. She has remained hemodynamically stable. [facility] [id number] [place] [address] Progress Note - Vophetynoie12/03/21 1317MR#: [id number]:[id number]:LALITA JOINER [facility] #:[id number]: [id number]: Jimenez Jaquez PAPCP:Dr. Nohemi Cardoza MD Status:ADM INLocation: [id number] Documented by User: Jimenez ROBLES 09/19/20 15:16 Subjective Subjective: Patient is a 75-year-old female who is resting in the chair, alert and orient x3. Patient reports feeling overall better from yesterday, however reports that she is still severely constipated. Endorses pain with defecation. Denies chest pain, shortness of breath, palpitations, fever, chills, N/V/D. Objective Data Objective Data Vital Signs: Vital Signs Temp Pulse Resp BP Pulse Ox 97.9 F 76 18 156/76 H 96 09/19/20 10:00 09/19/20 10:00 09/19/20 10:00 09/19/20 10:00 09/19/20 10:00 Oxygen Delivery Method Room Air Weight: 171 lb 4.787 oz Body Mass Index (BMI) 29.2 Finger Stick Blood Glucose 103 Intake & Output:Intake and Output for Last 24 Hours 09/17/20 09/18/20 09/19/20 23:59 23:59 23:59 Intake Total 830.00 / 830.00 860 / 860 200 / 200 Output Total 550 / 550 Balance 280.00 / 280.00 860 / 860 200 / 200 Lab / Micro Data Result Diagrams: 09/18/20 04:30 document embedded image 09/19/20 05:28 document embedded image Labs:Laboratory Results - last 24 hr 09/19/20 05:28 Sodium 133 L Potassium 3.1 L Chloride 98 Carbon Dioxide 26.0 BUN 28 H Creatinine 2.64 H Estim Creat Clear Calc 15.41 Est GFR (MDRD) Af Amer 23 L Est GFR (MDRD) Non-Af 19 L BUN/Creatinine Ratio 10.6 Glucose 102 Calcium 8.5 Phosphorus 3.5 Magnesium 2.2 Albumin 2.6 L Physical Exam alert, oriented x3 and no apparent distress HEENT head/scalp atraumatic Head and Scalp: normocephalic Eyes EOMs intact bilaterally Neck no lymphadenopathy, supple and no JVD Resp normal respiratory effort and clear to auscultation bilaterally Cardio regular rate, regular rhythm, no murmurs and no JVD GI normal to inspection, nondistended, normoactive bowel sounds Palpation: firm Extremity normal to inspection and full ROM Skin no rashes or lesions noted and no wounds Neuro CN's II-XII intact bilaterally Psych affect normal Plan is to continue her hydralazine, Norvasc, bumetanide labetalol. Nephrology on board on account of CKD stage IV with anasarca; appreciate rec's. She also has hypokalemia which is being replaced. Rest as per Jimenez Jaquez PA-C's note which I have reviewed and endorsed. Visit Charges Inpatient E&M: 31681 Subs Hosp L2 Addendum Inpatient E&M: 99157 Subs Hosp L2
--- NOTE | 2020-09-19 14:02 | PCM.PN.REN ---
Subjective Subjective: No new complaints. Still has lower extremity edema. Blood pressure is better. Objective Data Objective Data Vital Signs: Vital Signs Temp Pulse Resp BP Pulse Ox 97.9 F 76 18 156/76 H 96 09/19/20 10:00 09/19/20 10:00 09/19/20 10:00 09/19/20 10:00 09/19/20 10:00 Oxygen Delivery Method Room Air Weight: 171 lb 4.787 oz Body Mass Index (BMI) 29.2 Finger Stick Blood Glucose 103 Intake & Output: Intake and Output for Last 24 Hours 09/17/20 09/18/20 09/19/20 23:59 23:59 23:59 Intake Total 830.00 / 830.00 860 / 860 200 / 200 Output Total 550 / 550 Balance 280.00 / 280.00 860 / 860 200 / 200 Lab / Micro Data Result Diagrams: 09/18/20 04:30 09/19/20 05:28 Labs: Laboratory Results - last 24 hr 09/19/20 05:28 Sodium 133 L Potassium 3.1 L Chloride 98 Carbon Dioxide 26.0 BUN 28 H Creatinine 2.64 H Estim Creat Clear Calc 15.41 Est GFR (MDRD) Af Amer 23 L Est GFR (MDRD) Non-Af 19 L BUN/Creatinine Ratio 10.6 Glucose 102 Calcium 8.5 Phosphorus 3.5 Magnesium 2.2 Albumin 2.6 L Physical Exam Narrative Alert awake oriented 3 No pallor No JVD Heart S1 and S2 Lungs are clear to auscultation Significant lower extremity edema No suprapubic fullness Assessment & Plan Assessment/Plan (1) Hypokalemia: Status: Acute Code(s): E87.6 - Hypokalemia Plan: Repleted this morning (2) Anasarca associated with disorder of kidney: Status: Acute Code(s): N04.9 - Nephrotic syndrome with unspecified morphologic changes Plan: Has nephrotic range proteinuria, edema. She had a kidney biopsy last week. I spoke to pathology on Saturday of last week. More than 70% of her glomeruli were scored hence the biopsy was not very conclusive. 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 Electron microscopy was supposed to come back this week. will call pathology again this week. (3) Hypertensive urgency: Status: Acute Code(s): I16.0 - Hypertensive urgency Plan: Blood pressure was high on admission. Better today. We'llex as toleratese the Bumex as tolerated. Continue other medications as before. Blood pressure is better today. (4) CKD (chronic kidney disease) stage 4, GFR 15-29 ml/min: Status: Chronic Code(s): N18.4 - Chronic kidney disease, stage 4 (severe) Plan: Creatinine is overall stable.
--- NOTE | 2020-09-19 14:15 | NURSING ---
Report given to Julia MITTAL
[2020-09-19] MEDS: Ondansetron 4 MG/2 ML Vial IV (14:19)
[2020-09-19] MEDS: hydrALAZINE 20 MG/ML Vial 10 MG IV (18:21)
[2020-09-19] MEDS: Atorvastatin Calcium 40 MG Tablet PO (20:58)
[2020-09-20] VITALS (16 sets, daily range): BP systolic 155–220; BP diastolic 69–96; PULSE 73–104; RESP 16–18; TEMP 36.4–36.8; O2SAT 94–98
[2020-09-20] MEDS: hydrALAZINE 50 MG Tablet 100 MG PO ×3 (05:31→21:08)
[2020-09-20] MEDS: Labetalol 200 MG Tablet PO ×3 (05:32→21:08)
[2020-09-20 06:19] LABS: Absolute Lymphocyte Count 0.41 X10^3/uL (0.83-4.51); Basophil# 0.03 X10^3/uL; Basophil% 0.4 % (0-1); Eosinophil# 0.02 X10^3/uL; Eosinophils% 0.2 % (0-5); Hematocrit 35.1 % (37-47); Hemoglobin 11.7 g/dL (12.0-15.0); Lymphocyte # 0.41 X10^3/ul (0.83-4.51); Lymphocyte % 5.1 % (19-41); Mean Corp Hgb Conc 33.3 g/dL (32-36); Mean Corpuscular Hgb 29.8 pg (27.0-32.0); Mean Corpuscular Volume 89.5 fL (81-99); Mean Platelet Vol. 10.4 fl (6.2-12.0); Monocyte# 0.55 X10^3/uL; Monocyte% 6.8 % (0-10); NRBC Flagged by Analyzer 0 % (0-5); Neutrophil # 6.99 X10^3/uL (2.7-7.7); Neutrophil % 87.1 % (47-70); POSITIVE DIFFERENTIAL YES; Platelet Count 235 K/mm3 (150-450); RBC Distribution Width CV 13.1 % (11.6-14.6); RBC Distribution Width SD 42.9 fl (35.1-43.9); Red Blood Count 3.92 M/mm3 (4.2-5.4)
[2020-09-20 06:33] LABS: Differential Indicated SCAN CRITERIA MET
[2020-09-20 06:52] LABS: Anion Gap 9 (5-15); BUN 28 mg/dL (7-18); Calcium,Total 8.6 mg/dL (8.5-10.1); Chloride 98 mmol/L (98-107); Creatinine, Serum 2.55 mg/dL (0.55-1.02); EST Glomerular Filtration Rate 19 mL/min (>60); Est Glom Filt Rate - Afr Amer 24 mL/min (>60); Estimated Creatinine Clearance 15.95 ml/min; Glucose 102 mg/dL (74-106); Potassium 3.4 mmol/L (3.5-5.1); Sodium Level 132 mmol/L (136-145)
[2020-09-20] MEDS: Potassium Chloride Oral Tablet 20 MEQ 40 MEQ PO (08:45)
[2020-09-20] MEDS: Aspirin 81 MG TAB.CHEW PO (08:45)
[2020-09-20] MEDS: Heparin Injection (Vial) 5,000 UNIT/ML VIAL 5000 UNIT SC ×2 (10:25→21:07)
[2020-09-20] MEDS: amLODIPine 10 MG Tablet PO (10:26)
[2020-09-20] MEDS: Fluticasone 0.05% 1 SPRAY NASAL.SRY NASAL (10:26)
[2020-09-20] MEDS: Pantoprazole Sodium 20 MG Tablet PO (10:26)
[2020-09-20] MEDS: Dicyclomine 10 MG Capsule PO ×3 (10:26→21:08)
[2020-09-20] MEDS: Bumetanide 0.5 MG Tablet 1 MG PO (10:26)
--- NOTE | 2020-09-20 11:54 | PCM.PN.REN ---
Subjective Subjective: no new events BP remains high Objective Data Objective Data Vital Signs: Vital Signs Temp Pulse Resp BP Pulse Ox 97.5 F L 88 16 186/87 H 96 09/20/20 06:58 09/20/20 08:50 09/20/20 06:58 09/20/20 06:58 09/20/20 06:58 Oxygen Delivery Method Room Air Weight: 171 lb 8.314 oz Body Mass Index (BMI) 29.2 Finger Stick Blood Glucose 103 Intake & Output: Intake and Output for Last 24 Hours 09/18/20 09/19/20 09/20/20 23:59 23:59 23:59 Intake Total 860 / 860 420 / 420 Balance 860 / 860 420 / 420 Lab / Micro Data Result Diagrams: 09/20/20 05:48 09/20/20 05:48 Labs: Laboratory Results - last 24 hr 09/20/20 09/20/20 05:48 05:48 WBC 8.0 RBC 3.92 L Hgb 11.7 L Hct 35.1 L MCV 89.5 MCH 29.8 MCHC 33.3 RDW Std Deviation 42.9 RDW Coeff of Ricky 13.1 Plt Count 235 MPV 10.4 Immature Gran % (Auto) 0.400 Neut % (Auto) 87.1 H Lymph % (Auto) 5.1 L [place] % (Auto) 6.8 Eos % (Auto) 0.2 Baso % (Auto) 0.4 Absolute Neuts (auto) 7.0 Absolute Lymphs (auto) 0.41 L Nucleated RBC % 0 Sodium 132 L Potassium 3.4 L Chloride 98 Carbon Dioxide 25.0 Anion Gap 9 BUN 28 H Creatinine 2.55 H Estim Creat Clear Calc 15.95 Est GFR (MDRD) Af Amer 24 L Est GFR (MDRD) Non-Af 19 L BUN/Creatinine Ratio 11.0 Glucose 102 Calcium 8.6 Physical Exam Narrative Alert awake oriented x 3 no obvious distress no pallor no icterus no JVD s1s2 no murmurs lungs clear abdomen soft no organomegaly +++ edema no cyanosis Assessment & Plan Assessment/Plan (1) Hypokalemia: Status: Acute Code(s): E87.6 - Hypokalemia Plan: Repleted this morning (2) Anasarca associated with disorder of kidney: Status: Acute Code(s): N04.9 - Nephrotic syndrome with unspecified morphologic changes Plan: Has nephrotic range proteinuria, edema. She had a kidney biopsy last week. I spoke to pathology. unfortunately sample is not great. most of the gloms are scarred. no evidence of Membranous on H and E stain. ? FSGS. will send off serum PLA2R as outpatient. (3) Hypertensive urgency: Status: Acute Code(s): I16.0 - Hypertensive urgency Plan: Blood pressure was high on admission. better but still high. change diuretics to IV lasix for now. continue other meds as before (4) CKD (chronic kidney disease) stage 4, GFR 15-29 ml/min: Status: Chronic Code(s): N18.4 - Chronic kidney disease, stage 4 (severe) Plan: Creatinine is overall stable.
[2020-09-20] MEDS: hydrALAZINE 20 MG/ML Vial 10 MG IV ×2 (12:48→17:02)
[2020-09-20] MEDS: 0.9% Saline Lock 10 ML Syringe IV ×2 (12:49→17:03)
--- NOTE | 2020-09-20 12:49 | PN.HOSP_ITS ---
Documented by User: Jimenez ROBLES 09/20/20 12:59 Subjective Subjective: Patient is a 75-year-old female who is resting in bed, alert and orient x3. Patient reports being uncomfortable as she feels she is still constipated and she is managing chronic hemorrhoids. Denies chest pain, shortness of breath, palpitations, fever, chills, N/V/D. Objective Data Objective Data Vital Signs: Vital Signs Temp Pulse Resp BP Pulse Ox 97.9 F 85 16 190/88 H 94 09/20/20 12:41 09/20/20 12:41 09/20/20 12:41 09/20/20 12:41 09/20/20 12:41 Oxygen Delivery Method Room Air Weight: 171 lb 8.314 oz Body Mass Index (BMI) 29.2 Finger Stick Blood Glucose 103 Intake & Output: Intake and Output for Last 24 Hours 09/18/20 09/19/20 09/20/20 23:59 23:59 23:59 Intake Total 860 / 860 420 / 420 100 / 100 Balance 860 / 860 420 / 420 100 / 100 Lab / Micro Data Result Diagrams: 09/20/20 05:48 09/20/20 05:48 Labs: Laboratory Results - last 24 hr 09/20/20 09/20/20 05:48 05:48 WBC 8.0 RBC 3.92 L Hgb 11.7 L Hct 35.1 L MCV 89.5 MCH 29.8 MCHC 33.3 RDW Std Deviation 42.9 RDW Coeff of Ricky 13.1 Plt Count 235 MPV 10.4 Immature Gran % (Auto) 0.400 Neut % (Auto) 87.1 H Lymph % (Auto) 5.1 L [place] % (Auto) 6.8 Eos % (Auto) 0.2 Baso % (Auto) 0.4 Absolute Neuts (auto) 7.0 Absolute Lymphs (auto) 0.41 L Nucleated RBC % 0 Sodium 132 L Potassium 3.4 L Chloride 98 Carbon Dioxide 25.0 Anion Gap 9 BUN 28 H Creatinine 2.55 H Estim Creat Clear Calc 15.95 Est GFR (MDRD) Af Amer 24 L Est GFR (MDRD) Non-Af 19 L BUN/Creatinine Ratio 11.0 Glucose 102 Calcium 8.6 Physical Exam Narrative See subjective. Const alert, oriented x3 and no apparent distress HEENT head/scalp atraumatic and moist oral mucous membranes Head and Scalp: normocephalic Eyes EOMs intact bilaterally Neck no lymphadenopathy, supple and no JVD Resp normal respiratory effort, no use of accessory muscles and clear to auscultation bilaterally Cardio regular rate, regular rhythm, no murmurs and no JVD GI normal to inspection, nondistended, normoactive bowel sounds, soft to palpation and non-tender Extremity normal to inspection and full ROM Skin no rashes or lesions noted and no wounds Neuro CN's II-XII intact bilaterally Psych affect normal Assessment & Plan Assessment/Plan (1) Hypertensive emergency: Status: Acute Code(s): I16.1 - Hypertensive emergency (2) CKD (chronic kidney disease) stage 4, GFR 15-29 ml/min: Status: Chronic Code(s): N18.4 - Chronic kidney disease, stage 4 (severe) (3) Hypokalemia: Status: Acute Code(s): E87.6 - Hypokalemia (4) Anasarca associated with disorder of kidney: Status: Acute Code(s): N04.9 - Nephrotic syndrome with unspecified morphologic changes Plan: Patient is a 75-year-old female who was admitted for hypertensive emergency on 09/17/2020. Today patient currently reports still being constipated, and that current therapies have been unsuccessful in helping her move her bowels. Soap & suds enema ordered. Other problems as below. 1) Hypertensive emergency Still hypertensive although improved from admission, currently 190/87. Plan; IV Lasix added for diuresis per nephrology, continue hydralazine, Norvasc, bumetanide and labetalol. 2) Hypokalemia Currently 3.4, K-Dur 40 mEq p.o. x1 given this morning. Believe that hypokalemia is due to vomiting and some subsequent metabolic alkalosis. Nephrology following. Plan; continue to monitor BMP. 3 CKD stage 4 w/ Anasarca Nephrology following; considering FSGS, will work-up as an outpatient. Baseline serum creatinine around 2.9 mg/dL, currently 2.64. Plan; continue to monitor renal function. DVT prophylaxis -Heparin SC Patient seen by Jimenez Jaquez PA-C, under the supervision of Dr. Fraser. Documented by User: Dr. Sarah Fraser MD 09/20/20 15:41 Objective Data Lab / Micro Data Result Diagrams: 09/20/20 05:48 09/20/20 05:48 Visit Charges Inpatient E&M: 65414 Subs Hosp L2 Addendum Patient seen and examined. She still complains of constipation. Review of sympto ms otherwise negative. Patient still has edema of her upper and lower extremities. She has otherwise remained hemodynamically stable. O/E: alert, oriented x3 and no apparent distress HEENT head/scalp atraumatic Head and Scalp: normocephalic Eyes EOMs intact bilaterally Neck no lymphadenopathy, supple and no JVD Resp normal respiratory effort and clear to auscultation bilaterally Cardio regular rate, regular rhythm, no murmurs and no JVD GI normal to inspection, nondistended, normoactive bowel sounds Palpation: firm Extremity normal to inspection and full ROM Skin no rashes or lesions noted and no wounds Neuro CN's II-XII intact bilaterally Psych affect normal Continue hydralazine, Norvasc, bumetanide and labetalol. Nephrology concerned about possible FSGS; however, most of the sample showed scattered glomeruli. Electromicroscopy is pending. Per nephrology, diuretics changed to IV Lasix on account of persistent edema. WIll give soap suds enema for constipation Rest as per Jimenez Jaquez PA-C's note which I have reviewed and endorsed. . Inpatient E&M: 65711 Subs Hosp L2
--- NOTE | 2020-09-20 13:13 | NURSING ---
500ML SSE ADMINISTERED PER ORDER. UP TO BSC. SMALL LIQUID BROWN RESULTS. ASSISTED TO CHAIR.
[2020-09-20] MEDS: Senna/Docusate Sodium 1 Tablet 2 TABLET PO ×2 (15:38→21:08)
[2020-09-20] MEDS: Polyethylene Glycol 3350 17 GM PACKET PO (15:39)
[2020-09-20] MEDS: Psyllium 1 PACKET PO (15:39)
[2020-09-20] MEDS: Furosemide 40 MG/4 ML Vial IV (16:57)
[2020-09-20] MEDS: Atorvastatin Calcium 40 MG Tablet PO (21:08)
[2020-09-21] VITALS (13 sets, daily range): BP systolic 133–191; BP diastolic 62–96; PULSE 76–86; RESP 15–18; TEMP 36.4–37; O2SAT 95–97
[2020-09-21] MEDS: hydrALAZINE 50 MG Tablet 100 MG PO ×3 (05:33→21:41)
[2020-09-21] MEDS: Labetalol 200 MG Tablet PO (05:34)
[2020-09-21 08:50] LABS: Absolute Lymphocyte Count 0.51 X10^3/uL (0.83-4.51); Absolute Neutrophil Count 6.7 X10^3/uL (2.0-7.7); Basophil# 0.03 X10^3/uL; Basophil% 0.4 % (0-1); Eosinophil# 0.07 X10^3/uL; Eosinophils% 0.9 % (0-5); Hemoglobin 11.1 g/dL (12.0-15.0); Lymphocyte # 0.51 X10^3/ul (0.83-4.51); Lymphocyte % 6.4 % (19-41); Mean Corp Hgb Conc 33.6 g/dL (32-36); Mean Corpuscular Hgb 29.9 pg (27.0-32.0); Mean Corpuscular Volume 88.9 fL (81-99); Mean Platelet Vol. 10.4 fl (6.2-12.0); Monocyte% 7.5 % (0-10); NRBC Flagged by Analyzer 0 % (0-5); Neutrophil # 6.71 X10^3/uL (2.7-7.7); Neutrophil % 83.9 % (47-70); POSITIVE DIFFERENTIAL YES; Platelet Count 235 K/mm3 (150-450); RBC Distribution Width CV 12.8 % (11.6-14.6); RBC Distribution Width SD 41.6 fl (35.1-43.9); Red Blood Count 3.71 M/mm3 (4.2-5.4)
[2020-09-21 08:51] LABS: Differential Indicated SCAN CRITERIA MET
[2020-09-21 09:09] LABS: Anion Gap 8 (5-15); BUN 29 mg/dL (7-18); BUN/Creat Ratio 11.3 RATIO (10-20); Calcium,Total 8.3 mg/dL (8.5-10.1); Chloride 98 mmol/L (98-107); Creatinine, Serum 2.56 mg/dL (0.55-1.02); EST Glomerular Filtration Rate 19 mL/min (>60); Est Glom Filt Rate - Afr Amer 23 mL/min (>60); Estimated Creatinine Clearance 15.89 ml/min; Glucose 95 mg/dL (74-106); Potassium 3.2 mmol/L (3.5-5.1); Sodium Level 131 mmol/L (136-145)
[2020-09-21] MEDS: Aspirin 81 MG TAB.CHEW PO (10:30)
[2020-09-21] MEDS: Dicyclomine 10 MG Capsule PO ×3 (10:30→21:40)
[2020-09-21] MEDS: Fluticasone 0.05% 1 SPRAY NASAL.SRY NASAL (10:30)
[2020-09-21] MEDS: Heparin Injection (Vial) 5,000 UNIT/ML VIAL 5000 UNIT SC ×2 (10:31→21:41)
[2020-09-21] MEDS: Furosemide 40 MG/4 ML Vial IV ×2 (10:32→17:24)
[2020-09-21] MEDS: Polyethylene Glycol 3350 17 GM PACKET PO (10:33)
[2020-09-21] MEDS: amLODIPine 10 MG Tablet PO (10:34)
[2020-09-21] MEDS: 0.9% Saline Lock 10 ML Syringe IV ×2 (10:34→17:25)
[2020-09-21] MEDS: Psyllium 1 PACKET PO (10:35)
[2020-09-21] MEDS: Senna/Docusate Sodium 1 Tablet 2 TABLET PO ×2 (12:55→21:41)
[2020-09-21] MEDS: Pantoprazole Sodium 20 MG Tablet PO (12:55)
--- NOTE | 2020-09-21 15:26 | PCM.PN.HOSP ---
Documented by User: Jimenez ROBLES 09/21/20 15:34 Subjective Subjective: Patient is a 75-year-old female comfortably resting in bed, alert and oriented x3. Patient does report mild relief from her soap and size enema yesterday, however still feels mildly constipated. Patient requesting another soapsuds enema. Denies chest pain, shortness of breath, palpitations, fever, chills, N/V/D. Objective Data Objective Data Vital Signs: Vital Signs Temp Pulse Resp BP Pulse Ox 98.6 F 82 16 187/85 H 96 09/21/20 09:57 09/21/20 09:57 09/21/20 09:57 09/21/20 09:57 09/21/20 09:57 Oxygen Delivery Method Room Air Weight: 171 lb 11.841 oz Body Mass Index (BMI) 29.2 Finger Stick Blood Glucose 103 Intake & Output: Intake and Output for Last 24 Hours 09/19/20 09/20/20 09/21/20 23:59 23:59 23:59 Intake Total 420 / 420 340 / 390 270 / 270 Output Total 200 / 200 Balance 420 / 420 140 / 190 270 / 270 Lab / Micro Data Result Diagrams: 09/21/20 08:18 09/21/20 08:18 Labs: Laboratory Results - last 24 hr 09/21/20 09/21/20 08:18 08:18 WBC 8.0 RBC 3.71 L Hgb 11.1 L Hct 33.0 L MCV 88.9 MCH 29.9 MCHC 33.6 RDW Std Deviation 41.6 RDW Coeff of Ricky 12.8 Plt Count 235 MPV 10.4 Immature Gran % (Auto) 0.900 Neut % (Auto) 83.9 H Lymph % (Auto) 6.4 L [place] % (Auto) 7.5 Eos % (Auto) 0.9 Baso % (Auto) 0.4 Absolute Neuts (auto) 6.7 Absolute Lymphs (auto) 0.51 L Nucleated RBC % 0 Sodium 131 L Potassium 3.2 L Chloride 98 Carbon Dioxide 25.0 Anion Gap 8 BUN 29 H Creatinine 2.56 H Estim Creat Clear Calc 15.89 Est GFR (MDRD) Af Amer 23 L Est GFR (MDRD) Non-Af 19 L BUN/Creatinine Ratio 11.3 Glucose 95 Calcium 8.3 L Physical Exam Narrative See subjective. Const alert, oriented x3 and no apparent distress HEENT head/scalp atraumatic and moist oral mucous membranes Head and Scalp: normocephalic Eyes EOMs intact bilaterally Neck no lymphadenopathy, supple and no JVD Resp normal respiratory effort, no retractions, no use of accessory muscles and clear to auscultation bilaterally Cardio regular rate, regular rhythm, no murmurs and no JVD GI normal to inspection, nondistended, normoactive bowel sounds, soft to palpation, non-tender and non-distended Extremity normal to inspection and full ROM Skin no rashes or lesions noted, no wounds and no jaundice Neuro CN's II-XII intact bilaterally Psych affect normal Assessment & Plan Assessment/Plan (1) Hypertensive emergency: (2) CKD (chronic kidney disease) stage 4, GFR 15-29 ml/min: (3) Hypokalemia: (4) Anasarca associated with disorder of kidney: (5) Constipation: QUALIFIERS: Constipation type: slow transit constipation Qualified Code(s): K59.01 - Slow transit constipation PLAN: Patient is a 75-year-old female who was admitted for hypertensive emergency on 09/17/2020. On my exam today patient did not report slight improvement in her constipation after soapsuds enema yesterday. Requested second soapsuds enema. Does not feel comfortable returning home until her bowels are comfortably moving. 1) Hypertensive emergency Stable although still hypertensive, currently 187/85. Plan; IV Lasix added for diuresis per nephrology, continue hydralazine, Norvasc, bumetanide and labetalol. 2) Hypokalemia Currently 3.4, K-Dur 40 mEq p.o. x1 given this morning. Believe that hypokalemia is due to vomiting and some subsequent metabolic alkalosis. Nephrology following. Plan; continue to monitor BMP. 3 CKD stage 4 w/ Anasarca Nephrology following; considering FSGS, will work-up as an outpatient. Baseline serum creatinine around 2.9 mg/dL, currently 2.56. Plan; continue to monitor renal function. 4) Constipation Plan; soapsuds enema ordered.. DVT prophylaxis -Heparin SC Patient seen by Jimenez Jaquez PA-C, under the supervision of Dr. Fraser. Documented by User: Dr. Sarah Fraser MD 09/21/20 16:33 Objective Data Lab / Micro Data Result Diagrams: 09/21/20 08:18 09/21/20 08:18 Visit Charges Inpatient E&M: 10103 Subs Hosp L2 Addendum Patient seen and examined. She has no complaints today. The swelling in her upper and lower extremities have improved. Review of systems otherwise negative. She has remained hemodynamically stable. O/E: alert, oriented x3 and no apparent distress HEENT head/scalp atraumatic Head and Scalp: normocephalic Eyes EOMs intact bilaterally Neck no lymphadenopathy, supple and no JVD Resp normal respiratory effort and clear to auscultation bilaterally Cardio regular rate, regular rhythm, no murmurs and no JVD GI normal to inspection, nondistended, normoactive bowel sounds Palpation: firm Extremity normal to inspection and full ROM Skin no rashes or lesions noted and no wounds Neuro CN's II-XII intact bilaterally Psych affect normal Plan is to continue her current BP meds. Dose of labetalol was adjusted upwards today per nephrology. 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 Per nephrology, if necessary, this can be done on outpatient basis. Continue IV Lasix. Lower extremities in JAMARI wraps. Constipation has resovled after she received soap suds enema yesterday. Rest as per Jimenez Jaquez PA-C's note, which I have reviewed and endorsed. Inpatient E&M: 55023 Subs Hosp L2
[2020-09-21] MEDS: Labetalol 200 MG Tablet 400 MG PO ×2 (16:24→21:41)
--- NOTE | 2020-09-21 16:50 | PN.RENAL_ITS ---
Subjective Subjective: no new complaints Objective Data Objective Data Vital Signs: Vital Signs Temp Pulse Resp BP Pulse Ox 98.4 F 86 15 191/96 H 95 09/21/20 16:15 09/21/20 16:23 09/21/20 16:15 09/21/20 16:23 09/21/20 16:15 Oxygen Delivery Method Room Air Weight: 77.9 kg Body Mass Index (BMI) 29.2 Finger Stick Blood Glucose 103 Intake & Output: Intake and Output for Last 24 Hours 09/19/20 09/20/20 09/21/20 23:59 23:59 23:59 Intake Total 420 / 420 340 / 390 270 / 270 Output Total 200 / 200 Balance 420 / 420 140 / 190 270 / 270 Lab / Micro Data Result Diagrams: 09/21/20 08:18 09/21/20 08:18 Labs: Laboratory Results - last 24 hr 09/21/20 09/21/20 08:18 08:18 WBC 8.0 RBC 3.71 L Hgb 11.1 L Hct 33.0 L MCV 88.9 MCH 29.9 MCHC 33.6 RDW Std Deviation 41.6 RDW Coeff of Ricky 12.8 Plt Count 235 MPV 10.4 Immature Gran % (Auto) 0.900 Neut % (Auto) 83.9 H Lymph % (Auto) 6.4 L [place] % (Auto) 7.5 Eos % (Auto) 0.9 Baso % (Auto) 0.4 Absolute Neuts (auto) 6.7 Absolute Lymphs (auto) 0.51 L Nucleated RBC % 0 Sodium 131 L Potassium 3.2 L Chloride 98 Carbon Dioxide 25.0 Anion Gap 8 BUN 29 H Creatinine 2.56 H Estim Creat Clear Calc 15.89 Est GFR (MDRD) Af Amer 23 L Est GFR (MDRD) Non-Af 19 L BUN/Creatinine Ratio 11.3 Glucose 95 Calcium 8.3 L Physical Exam Narrative Alert awake oriented x 3 no obvious distress no pallor no icterus no JVD s1s2 no murmurs lungs clear abdomen soft no organomegaly +++ edema no cyanosis Chest inspection of chest normal Resp clear to auscultation bilaterally Assessment & Plan Assessment/Plan (1) Hypokalemia: PLAN: Repleted this morning (2) Anasarca associated with disorder of kidney: PLAN: Has nephrotic range proteinuria, edema. She had a kidney biopsy last week. I spoke to pathology. unfortunately sample is not great. most of the gloms are scarred. no evidence of Membranous on H and E stain. ? FSGS. will send off serum PLA2R as outpatient. discussed about repeat biopsy. even if she has FSGS I do not know if she is a candidate for senior care steroids given poor functional status (3) Hypertensive urgency: PLAN: Blood pressure was high on admission. better but still high. increase labetalol (4) CKD (chronic kidney disease) stage 4, GFR 15-29 ml/min: PLAN: Creatinine is overall stable.
--- NOTE | 2020-09-21 19:30 | NURSING ---
RN administered soap suds enema per order. XL liquid bm with some soft, formed stool mixed in. Tolerated well. Patient resting in bed. No distress noted.
[2020-09-21] MEDS: Atorvastatin Calcium 40 MG Tablet PO (21:41)
[2020-09-22] VITALS (9 sets, daily range): BP systolic 161–173; BP diastolic 71–78; PULSE 68–84; RESP 18–20; TEMP 36.2–36.6; O2SAT 96–97
[2020-09-22] MEDS: hydrALAZINE 50 MG Tablet 100 MG PO ×2 (05:29→13:29)
[2020-09-22] MEDS: Labetalol 200 MG Tablet 400 MG PO ×2 (05:30→13:29)
[2020-09-22 07:12] LABS: Absolute Lymphocyte Count 0.62 X10^3/uL (0.83-4.51); Absolute Neutrophil Count 7.1 X10^3/uL (2.0-7.7); Basophil# 0.04 X10^3/uL; Basophil% 0.5 % (0-1); Eosinophil# 0.07 X10^3/uL; Eosinophils% 0.8 % (0-5); Hematocrit 33.5 % (37-47); Hemoglobin 11.4 g/dL (12.0-15.0); Lymphocyte # 0.62 X10^3/ul (0.83-4.51); Lymphocyte % 7.3 % (19-41); Mean Corpuscular Hgb 30.2 pg (27.0-32.0); Mean Corpuscular Volume 88.9 fL (81-99); Mean Platelet Vol. 10.8 fl (6.2-12.0); Monocyte# 0.65 X10^3/uL; Monocyte% 7.6 % (0-10); NRBC Flagged by Analyzer 0 % (0-5); Neutrophil # 7.09 X10^3/uL (2.7-7.7); Platelet Count 253 K/mm3 (150-450); RBC Distribution Width CV 12.5 % (11.6-14.6); RBC Distribution Width SD 40.9 fl (35.1-43.9); Red Blood Count 3.77 M/mm3 (4.2-5.4); White Blood Count 8.5 K/mm3 (4.4-11.0)
[2020-09-22 07:37] LABS: Anion Gap 9 (5-15); BUN 29 mg/dL (7-18); Calcium,Total 8.3 mg/dL (8.5-10.1); Chloride 95 mmol/L (98-107); Creatinine, Serum 2.63 mg/dL (0.55-1.02); EST Glomerular Filtration Rate 19 mL/min (>60); Est Glom Filt Rate - Afr Amer 23 mL/min (>60); Estimated Creatinine Clearance 15.47 ml/min; Glucose 75 mg/dL (74-106); Potassium 2.9 mmol/L (3.5-5.1); Sodium Level 131 mmol/L (136-145)
[2020-09-22] MEDS: Heparin Injection (Vial) 5,000 UNIT/ML VIAL 5000 UNIT SC (09:27)
[2020-09-22] MEDS: Aspirin 81 MG TAB.CHEW PO (09:27)
[2020-09-22] MEDS: Dicyclomine 10 MG Capsule PO ×2 (09:27→13:29)
[2020-09-22] MEDS: Psyllium 1 PACKET PO (09:28)
[2020-09-22] MEDS: amLODIPine 10 MG Tablet PO (09:28)
[2020-09-22] MEDS: Pantoprazole Sodium 20 MG Tablet PO (09:28)
[2020-09-22] MEDS: Furosemide 40 MG/4 ML Vial IV (09:28)
[2020-09-22] MEDS: Senna/Docusate Sodium 1 Tablet 2 TABLET PO (09:29)
[2020-09-22] MEDS: Fluticasone 0.05% 1 SPRAY NASAL.SRY NASAL (09:29)
[2020-09-22] MEDS: Polyethylene Glycol 3350 17 GM PACKET PO (09:41)
[2020-09-22] MEDS: 0.9% Saline Lock 10 ML Syringe IV ×2 (09:41→13:22)
--- NOTE | 2020-09-22 11:51 | DCINST_ITS ---
Discharge Instructions Diet Discharge Diet: Renal Diet Activity Discharge Activity: Return to Normal Activity Weight Bearing Status: Weight bearing as tolerated Follow Up Care When: keep BP log and present to your PCP and salvage repairer for adjustment of meds as needed. Test Results: Test results from this visit will be discussed in further detail at your follow-up appointment, if applicable. Discharge Plan Admission Admit Date/Time: 09/17/20 06:35 Primary Reason for Your Visit: hypertensive urgency Attending Provider: Sarah Fraser Primary Care Provider: Nohemi Cardoza Consulting Providers: Oz Oliveros ; Felix Kirkland ; Julieth Maki NP ; Lupillo Ericskon Instructions Patient Instructions: Controlling High Blood Pressure, ED Chronic Kidney Disease (CKD), ED Glomerulonephritis, Acute Additional Instructions / Restrictions: keep BP log and present to pcp and salvage repairer for adjustment of meds as needed Discharge Orders/Prescriptions Prescriptions: New amlodipine 10 mg Tablet 10 mg PO DAILY Qty: 30 RF: 1 labetalol 200 mg tablet 400 mg PO TID Qty: 180 RF: 1 hydralazine 100 mg tablet 100 mg PO TID Qty: 90 RF: 1 Continued dicyclomine 10 MG capsule 10 mg PO 4X/DAY RF: 0 atorvastatin [Lipitor] 40 mg Tablet 40 mg PO QHS RF: 0 polyethylene glycol 3350 [Miralax] 17 gram Powder In Packet 17 g PO DAILY RF: 0 psyllium Packet 1 packet PO DAILY RF: 0 jdrashqfhd-tlpbgkylnmtmx-lmaq 50-325-40 mg Tablet 1 tab PO Q6H PRN (Reason: Headache) RF: 0 lansoprazole 15 mg Capsule,Delayed Release(Dr/Ec) 15 mg PO DAILY RF: 0 aspirin 81 mg Tablet,Chewable 81 mg PO DAILY RF: 0 bumetanide 1 mg tablet 1 mg PO DAILY RF: 0 fluticasone propionate 50 mcg/actuation [place],Suspension 1 spray INTRANASAL DAILY RF: 0 Discontinued cephalexin 250 mg Tablet 250 mg PO BID RF: 0 labetalol 200 mg Tablet 200 mg PO TID RF: 0 hydralazine 50 mg Tablet 50 mg PO TID RF: 0 Referrals / Follow Up: Darrius Castro MD [STAFF PHYSICIAN] - Within 2 Weeks Nohemi Cardoza MD [Primary Care Provider] - 10/03/20 10:00 am Disposition Disposition (needs filled in before D/C Order can be placed): Home, self care
[2020-09-22] MEDS: Ondansetron 4 MG/2 ML Vial IV (13:22)
--- NOTE | 2020-09-22 14:44 | PCM.DC.SUM ---
Providers Date of Admission: 09/17/20 Primary Care Physician: Dr. Nohemi Cardoza MD Consultations 09/17/20 08:00 Consult: Assistant Casino Shift Manager / Pulmonary Medicine Routine Consulting Provider: Pulmonary Medicine enedina Yvette Reason for Consult: Hypertensive emergency EMERGENT Consult: No Notified: Yes Date Notified:: 09/17/20 Time Notified: 08:35 Method of Notification: Verbal Method of Consult:: In-Person 09/17/20 19:36 Consult: Nephrology Routine Consulting Provider: Lupillo Erickson Reason for Consult: CKD, recent kidney biopsy, htn urgency EMERGENT Consult: No Notified: Yes Date Notified:: 09/17/20 Time Notified: 07:00 Method of Notification: Verbal Comments:: Dr Rao was notified by the ER physician Reason For Visit: HYPERTENSIVE URGENCY Diagnosis Discharge Diagnosis (1) Hypokalemia: Status: Acute Code(s): E87.6 - Hypokalemia (2) Anasarca associated with disorder of kidney: Status: Acute Code(s): N04.9 - Nephrotic syndrome with unspecified morphologic changes (3) Hypertensive urgency: Status: Acute Code(s): I16.0 - Hypertensive urgency (4) CKD (chronic kidney disease) stage 4, GFR 15-29 ml/min: Status: Chronic Code(s): N18.4 - Chronic kidney disease, stage 4 (severe) Medications at Discharge Home Medications dicyclomine 10 mg PO 4X/DAY 07/31/20 aspirin 81 mg PO DAILY 09/17/20 atorvastatin [Lipitor] 40 mg PO QHS 09/17/20 bumetanide 1 mg PO DAILY 09/17/20 henioctatk-vtwlwxgapmtta-zuns 1 tab PO Q6H PRN 09/17/20 fluticasone propionate 1 spray INTRANASAL DAILY 09/17/20 lansoprazole 15 mg PO DAILY 09/17/20 polyethylene glycol 3350 [Miralax] 17 g PO DAILY 09/17/20 psyllium 1 packet PO DAILY 09/17/20 amlodipine 10 mg PO DAILY #30 tab 09/22/20 hydralazine 100 mg PO TID #90 tab 09/22/20 labetalol 400 mg PO TID #180 tab 09/22/20 potassium chloride 20 meq PO DAILY #30 tab 09/22/20 Hospital Course Operations None Procedures - Summary of Care Provided Minutes Spent on Discharge: 40 Hospital Course: Patient is a 75-year-old female with a past medical history as outlined which includes hypertension and CKD. She was admitted through the ER on 09/17/2020 with a complaint of nausea and vomiting as well as constipation. She had had an enema 2 days prior to admission with minimal results and was concerned that she was not acting right so patient was brought into the ED. On arrival in the ED, blood pressure was noted to be markedly elevated. She had had a kidney biopsy the same week of presentation at the request of her english instructor. On admission, she was placed on a nicardipine drip on account of hypertensive urgency and admitted to the ICU. Nephrology and critical care were consulted. Per last echo done in July 2020, EF was 65% with stage I diastolic dysfunction and pulmonary artery systolic pressure of 35 mmHg. Of note, patient admitted to not taking her blood pressure medications. She was weaned off nicardipine drip and transferred out of the ICU. She was started back on her oral blood pressure medications. Blood pressure control remained labile so dose of her labetalol and hydralazine were adjusted upwards. She was also put on IV Lasix to help with diuresis. Stay was also complicated by hypokalemia which resolved with replacement of potassium. Constipation was relieved with use of enemas. Patient remained stable and blood pressure control did improve a bit. Per nephrology, pathology of kidney biopsy was concerning for possible FSGS but showed mostly scarred glomeruli. Patient stable and was discharged home on 09/22/2020. She was discharged on amlodipine, hydralazine and labetalol. Patient counseled to keep a blood pressure log at home which she will present to her PCP and english instructor for adjustment of her blood pressure medications as needed. Patient was seen and examined prior to discharge. She had no complaints and felt well. Review of symptoms otherwise negative. Labs and vitals reviewed. Home medication reviewed and reconciled. Physical Exam Narrative NAD. afebrile. Const alert and oriented x3 General Appearance: cooperative, comfortable and well kempt HEENT head/scalp atraumatic Eyes PERRL Resp normal respiratory effort and clear to auscultation bilaterally Cardio regular rate, regular rhythm, S1 normal heart sound and S2 normal heart sound GI normal to inspection, nondistended, normoactive bowel sounds, soft to palpation, non-tender and non-distended Extremity normal to inspection and no clubbing, cyanosis or edema Neuro oriented x3 Sensorium / Orientation: awake and alert Psych affect normal ABG / Lab / Microbiology Data Result Diagrams: 09/22/20 06:00 09/22/20 06:00 Laboratory: Laboratory Results - last 24 hr 09/22/20 09/22/20 06:00 06:00 WBC 8.5 RBC 3.77 L Hgb 11.4 L Hct 33.5 L MCV 88.9 MCH 30.2 MCHC 34.0 RDW Std Deviation 40.9 RDW Coeff of Ricky 12.5 Plt Count 253 MPV 10.8 Immature Gran % (Auto) 0.800 Neut % (Auto) 83.0 H Lymph % (Auto) 7.3 L [place] % (Auto) 7.6 Eos % (Auto) 0.8 Baso % (Auto) 0.5 Absolute Neuts (auto) 7.1 Absolute Lymphs (auto) 0.62 L Nucleated RBC % 0 Sodium 131 L Potassium 2.9 L Chloride 95 L Carbon Dioxide 27.0 Anion Gap 9 BUN 29 H Creatinine 2.63 H Estim Creat Clear Calc 15.47 Est GFR (MDRD) Af Amer 23 L Est GFR (MDRD) Non-Af 19 L BUN/Creatinine Ratio 11.0 Glucose 75 Calcium 8.3 L D/C Instructions Discharge Diet: Renal Diet Discharge Activity: Return to Normal Activity Weight Bearing Status: Weight bearing as tolerated When: keep BP log and present to your PCP and english instructor for adjustment of meds as needed. Meaningful Use Info Meaningful Use Diagnoses (Choose all that apply): None applicable Discharge Plan Admission Admit Date/Time: 09/17/20 06:35 Primary Reason for Your Visit: hypertensive urgency Attending Provider: Sarah Fraser Primary Care Provider: Nohemi Cardoza Consulting Providers: Oz Oliveros ; Felix Kirkland ; Julieth Maki SYSTEMS DESIGNER ; Lupillo Erickson Instructions Patient Instructions: Controlling High Blood Pressure, ED Chronic Kidney Disease (CKD), ED Glomerulonephritis, Acute Additional Instructions / Restrictions: keep BP log and present to pcp and english instructor for adjustment of meds as needed Discharge Orders/Prescriptions Prescriptions: New amlodipine 10 mg Tablet 10 mg PO DAILY Qty: 30 RF: 1 labetalol 200 mg tablet 400 mg PO TID Qty: 180 RF: 1 hydralazine 100 mg tablet 100 mg PO TID Qty: 90 RF: 1 potassium chloride 20 mEq tablet extended release 20 meq PO DAILY Qty: 30 RF: 1 Continued dicyclomine 10 MG capsule 10 mg PO 4X/DAY RF: 0 atorvastatin [Lipitor] 40 mg Tablet 40 mg PO QHS RF: 0 polyethylene glycol 3350 [Miralax] 17 gram Powder In Packet 17 g PO DAILY RF: 0 psyllium Packet 1 packet PO DAILY RF: 0 abqpvouzvw-rildhhpaqudmq-pozy 50-325-40 mg Tablet 1 tab PO Q6H PRN (Reason: Headache) RF: 0 lansoprazole 15 mg Capsule,Delayed Release(Dr/Ec) 15 mg PO DAILY RF: 0 aspirin 81 mg Tablet,Chewable 81 mg PO DAILY RF: 0 bumetanide 1 mg tablet 1 mg PO DAILY RF: 0 fluticasone propionate 50 mcg/actuation [place],Suspension 1 spray INTRANASAL DAILY RF: 0 Discontinued cephalexin 250 mg Tablet 250 mg PO BID RF: 0 labetalol 200 mg Tablet 200 mg PO TID RF: 0 hydralazine 50 mg Tablet 50 mg PO TID RF: 0 Referrals / Follow Up: Darrius Castro MD [STAFF PHYSICIAN] - 10/28/20 12:00 pm (Will be a tele health appointment ) Nohemi Cardoza MD [Primary Care Provider] - 10/03/20 10:00 am Disposition Disposition (needs filled in before D/C Order can be placed): Home, self care Visit Charges Inpatient E&M: 66120 Disch Hosp
[2020-09-22] MEDS: Potassium Chloride Oral Tablet 20 MEQ 60 MEQ PO (16:40)
--- NOTE | 2020-09-22 18:19 | PN.RENAL_ITS ---
Subjective Subjective: no new complaints Objective Data Objective Data Vital Signs: Vital Signs Temp Pulse Resp BP Pulse Ox 97.9 F 77 18 161/71 H 96 09/22/20 13:15 09/22/20 16:00 09/22/20 13:15 09/22/20 13:15 09/22/20 13:15 Oxygen Delivery Method Room Air Weight: 77.5 kg Body Mass Index (BMI) 29.2 Finger Stick Blood Glucose 103 Intake & Output: Intake and Output for Last 24 Hours 09/20/20 09/21/20 09/22/20 23:59 23:59 23:59 Intake Total 340 / 390 510 / 710 300 / 300 Output Total 200 / 200 Balance 140 / 190 510 / 710 300 / 300 Lab / Micro Data Result Diagrams: 09/22/20 06:00 09/22/20 06:00 Labs: Laboratory Results - last 24 hr 09/22/20 09/22/20 06:00 06:00 WBC 8.5 RBC 3.77 L Hgb 11.4 L Hct 33.5 L MCV 88.9 MCH 30.2 MCHC 34.0 RDW Std Deviation 40.9 RDW Coeff of Ricky 12.5 Plt Count 253 MPV 10.8 Immature Gran % (Auto) 0.800 Neut % (Auto) 83.0 H Lymph % (Auto) 7.3 L [place] % (Auto) 7.6 Eos % (Auto) 0.8 Baso % (Auto) 0.5 Absolute Neuts (auto) 7.1 Absolute Lymphs (auto) 0.62 L Nucleated RBC % 0 Sodium 131 L Potassium 2.9 L Chloride 95 L Carbon Dioxide 27.0 Anion Gap 9 BUN 29 H Creatinine 2.63 H Estim Creat Clear Calc 15.47 Est GFR (MDRD) Af Amer 23 L Est GFR (MDRD) Non-Af 19 L BUN/Creatinine Ratio 11.0 Glucose 75 Calcium 8.3 L Physical Exam Narrative Alert awake oriented x 3 no obvious distress no pallor no icterus no JVD s1s2 no murmurs lungs clear abdomen soft no organomegaly +++ edema no cyanosis Chest inspection of chest normal Resp clear to auscultation bilaterally Assessment & Plan Assessment/Plan (1) Hypokalemia: PLAN: Repleted this morning (2) Anasarca associated with disorder of kidney: PLAN: Has nephrotic range proteinuria, edema. She had a kidney biopsy last week. I spoke to pathology. unfortunately sample is not great. most of the gloms are scarred. no evidence of Membranous on H and E stain. ? FSGS. will send off serum PLA2R as outpatient. discussed about repeat biopsy. even if she has FSGS I do not know if she is a candidate for marine oil terminal superintendent steroids given poor functional status. (3) Hypertensive urgency: PLAN: Blood pressure was high on admission. better but still high. increased labetalol (4) CKD (chronic kidney disease) stage 4, GFR 15-29 ml/min: PLAN: Creatinine is overall stable. dw Dr Fraser. ms today. no plans for biopsy now. add oral K at ms. continue oral bumex. will arrange follow up after ms
--- NOTE | 2020-09-23 09:04 | CASEMGMT ---
DAXA TUBBS NOTE: DAXA TUBBS informed by charge attendant, Olga Lidia, that returned to [facility] last evening w/medications and with multiple questions re: meds, and she inquired if further assistance could be provided for med mgmt for pt/. DAXA TUBBS attempted to reach pt/ at this time. VM left on home number requesting return call. Phone number to this DAXA TUBBS provided. Also attempted to reach them via cell phone. No answer and message came on stating VM has not been set up yet. DAXA TUBBS will attempt to reach later. Ru ORON DAXA CM
--- NOTE | 2020-09-23 14:15 | CASEMGMT ---
Addendum entered by Shanna Sequeira 09/23/20 14:52: [facility] referral for med management d/t concerns with same. Jaleel at [facility] updated, voices understanding. Gerda MITTAL CM Original Note: RN CM Discharge F/U Phone Call LACE: 15 Strata: 4 Discharge date: 09/22/20 Call date: 09/23/20 Call time: [phone] Attempted to reach pt on home phone and cell phone without success, message left on home phone for pt to call this RN CM back. Gerda MITTAL CM Admission dx: Hypertensive urgency
--- NOTE | 2020-10-09 15:11 | CCN.REFER ---
PATIENT/ DECLINE CCN SERVICES PER .
== END 2020-09-22 16:58 | disposition home or self-care (01) | DRG 305 ==
LOC: ED 03:07 → ICU 08:04 → PCU 09-19 07:27 → ICU 09-19 15:32
PROVIDERS: Internal Medicine Nephrology; Physician Assistant; Admitting Provider Hospitalist; Emergency Provider Emergency Medicine; PCP Internal Medicine; Visit Provider Student in an Organized Health Care Education/Training Program
DX: I16.1 Hypertensive emergency (principal); N18.4 Chronic kidney disease, stage 4 (severe); E87.3 Alkalosis; I12.9 Hypertensive chronic kidney disease with stage 1 through stage 4 chronic kidney disease, or unspecified chronic kidney disease; T46.5X6A Underdosing of other antihypertensive drugs, initial encounter; Z91.14 Patient's other noncompliance with medication regimen; E87.6 Hypokalemia; E88.09 Other disorders of plasma-protein metabolism, not elsewhere classified; R11.2 Nausea with vomiting, unspecified; K59.01 Slow transit constipation; K58.9 Irritable bowel syndrome, unspecified; G89.29 Other chronic pain; K21.9 Gastro-esophageal reflux disease without esophagitis; E66.9 Obesity, unspecified; Z68.29 Body mass index [BMI] 29.0-29.9, adult; Z79.82 Long term (current) use of aspirin; Z79.899 Other long term (current) drug therapy
CPT/HCPCS: 36415; 80048; 80053; 80069; 81001; 82306; 82570; 83735; 83970; 84156; 84165; 84484; 85025; 85027; 85610; 85730; 93005; 97802; 99285; J7050; A4216; J1940; J2405

== ENCOUNTER → 2020-09-28 14:43 | Outpatient (CLI) | payer MEDICARE, SELFPAY ==
[2020-09-17 08:11] VITALS: BMI 29.2
[2020-09-28 15:48] LABS: Hematocrit 36.8 % (37-47); Hemoglobin 12.1 g/dL (12.0-15.0); Mean Corp Hgb Conc 32.9 g/dL (32-36); Mean Corpuscular Hgb 29.4 pg (27.0-32.0); Mean Corpuscular Volume 89.3 fL (81-99); Mean Platelet Vol. 11.3 fl (6.2-12.0); Platelet Count 291 K/mm3 (150-450); RBC Distribution Width CV 12.7 % (11.6-14.6); RBC Distribution Width SD 41.9 fl (35.1-43.9); Red Blood Count 4.12 M/mm3 (4.2-5.4); White Blood Count 7.4 K/mm3 (4.4-11.0)
[2020-09-28 16:06] LABS: Anion Gap 7 (5-15); BUN 23 mg/dL (7-18); BUN/Creat Ratio 7.9 RATIO (10-20); Calcium,Total 8.9 mg/dL (8.5-10.1); Chloride 100 mmol/L (98-107); Creatinine, Serum 2.91 mg/dL (0.55-1.02); EST Glomerular Filtration Rate 17 mL/min (>60); Est Glom Filt Rate - Afr Amer 20 mL/min (>60); Glucose 103 mg/dL (74-106); Potassium 4.1 mmol/L (3.5-5.1); Sodium Level 130 mmol/L (136-145)
[2020-09-28 16:10] LABS: Vitamin D,25 Hydroxy 19.2 ng/mL
[2020-09-29 10:09] LABS: PTHIN 76.8 pg/mL (18.4-80.1)
[2020-09-30 16:08] LABS: PROEL- A/G Ratio 1.1 (0.7-1.7); PROEL- Albumin 2.9 g/dL (2.9-4.4); PROEL- Alpha-1 Globulin 0.3 g/dL (0.0-0.4); PROEL- Beta Globulin 0.9 g/dL (0.7-1.3); PROEL- Gamma Globulin 0.5 g/dL (0.4-1.8); PROEL- Globulin, Total 2.7 g/dL (2.2-3.9); PROEL- TOTAL PROTEIN 5.6 g/dL (6.0-8.5)
== END ==
PROVIDERS: PCP Internal Medicine; Referring Provider Internal Medicine Nephrology; Visit Provider Internal Medicine Nephrology
DX: N18.4 Chronic kidney disease, stage 4 (severe) (principal); D64.9 Anemia, unspecified
CPT/HCPCS: 36415; 80048; 82306; 83970; 84165; 85027

== ENCOUNTER → 2020-09-29 12:18 | Outpatient (CLI) | payer MEDICARE, SELFPAY ==
[2020-09-17 08:11] VITALS: BMI 29.2
[2020-09-29 12:58] LABS: Protein, Urine (Random) 187.7 mg/dL (<11.9); Protein:Creat Ratio 5425 mg/g CRE (0-200)
== END ==
PROVIDERS: PCP Internal Medicine; Referring Provider Internal Medicine Nephrology; Visit Provider Internal Medicine Nephrology
DX: N18.4 Chronic kidney disease, stage 4 (severe) (principal); D64.9 Anemia, unspecified
CPT/HCPCS: 82570; 84156

== ENCOUNTER → 2020-10-19 16:14 | Outpatient (CLI) | payer MEDICARE, SELFPAY ==
[2020-09-17 08:11] VITALS: BMI 29.2
[2020-10-19 17:53] LABS: Anion Gap 10 (5-15); BUN 19 mg/dL (7-18); BUN/Creat Ratio 6.7 RATIO (10-20); Calcium,Total 8.7 mg/dL (8.5-10.1); Chloride 101 mmol/L (98-107); Creatinine, Serum 2.82 mg/dL (0.55-1.02); EST Glomerular Filtration Rate 17 mL/min (>60); Est Glom Filt Rate - Afr Amer 21 mL/min (>60); Glucose 126 mg/dL (74-106); Potassium 3.8 mmol/L (3.5-5.1); Sodium Level 137 mmol/L (136-145)
== END ==
PROVIDERS: PCP Internal Medicine; Visit Provider Internal Medicine Nephrology
DX: N18.4 Chronic kidney disease, stage 4 (severe) (principal)
CPT/HCPCS: 36415; 80048

== ENCOUNTER → 2020-11-08 15:40 | Outpatient (CLI) | payer MEDICARE, SELFPAY ==
[2020-09-17 08:11] VITALS: BMI 29.2
[2020-11-08 18:05] LABS: Anion Gap 8 (5-15); BUN 18 mg/dL (7-18); BUN/Creat Ratio 6.9 RATIO (10-20); Calcium,Total 8.9 mg/dL (8.5-10.1); Chloride 103 mmol/L (98-107); Creatinine, Serum 2.62 mg/dL (0.55-1.02); EST Glomerular Filtration Rate 19 mL/min (>60); Est Glom Filt Rate - Afr Amer 23 mL/min (>60); Glucose 100 mg/dL (74-106); Potassium 4.2 mmol/L (3.5-5.1); Sodium Level 136 mmol/L (136-145)
== END ==
PROVIDERS: PCP Internal Medicine; Referring Provider Internal Medicine Nephrology; Visit Provider Internal Medicine Nephrology
DX: N18.4 Chronic kidney disease, stage 4 (severe) (principal)
CPT/HCPCS: 36415; 80048

== ENCOUNTER → 2020-12-28 16:12 | Outpatient (CLI) | payer MEDICARE, SELFPAY ==
[2020-09-17 08:11] VITALS: BMI 29.2
[2020-12-28 17:05] LABS: Anion Gap 10 (5-15); BUN 22 mg/dL (7-18); BUN/Creat Ratio 8.3 RATIO (10-20); Calcium,Total 8.8 mg/dL (8.5-10.1); Chloride 97 mmol/L (98-107); Creatinine, Serum 2.65 mg/dL (0.55-1.02); EST Glomerular Filtration Rate 19 mL/min (>60); Est Glom Filt Rate - Afr Amer 22 mL/min (>60); Glucose 99 mg/dL (74-106); Potassium 4.3 mmol/L (3.5-5.1); Sodium Level 132 mmol/L (136-145)
== END ==
LOC: LAB 16:14
PROVIDERS: PCP Internal Medicine; Referring Provider Internal Medicine Nephrology; Visit Provider Internal Medicine Nephrology
DX: N18.4 Chronic kidney disease, stage 4 (severe) (principal)
CPT/HCPCS: 36415; 80048

== ENCOUNTER → 2021-01-24 11:40 | Outpatient (CLI) | payer MEDICARE, SELFPAY ==
[2021-01-24 13:06] LABS: Anion Gap 9 (5-15); BUN 28 mg/dL (7-18); BUN/Creat Ratio 9.3 RATIO (10-20); Calcium,Total 9.1 mg/dL (8.5-10.1); Chloride 101 mmol/L (98-107); Creatinine, Serum 3.01 mg/dL (0.55-1.02); EST Glomerular Filtration Rate 16 mL/min (>60); Est Glom Filt Rate - Afr Amer 19 mL/min (>60); Glucose 94 mg/dL (74-106); Potassium 3.4 mmol/L (3.5-5.1); Sodium Level 134 mmol/L (136-145)
== END ==
PROVIDERS: PCP Internal Medicine; Referring Provider Internal Medicine Nephrology; Visit Provider Internal Medicine Nephrology
DX: N18.4 Chronic kidney disease, stage 4 (severe) (principal)
CPT/HCPCS: 36415; 80048

== ENCOUNTER → 2021-02-06 13:44 | Outpatient (CLI) | payer MEDICARE, SELFPAY ==
[2021-02-06 15:20] LABS: Anion Gap 6 (5-15); BUN 24 mg/dL (7-18); BUN/Creat Ratio 7.6 RATIO (10-20); Calcium,Total 9.1 mg/dL (8.5-10.1); Chloride 103 mmol/L (98-107); Creatinine, Serum 3.16 mg/dL (0.55-1.02); EST Glomerular Filtration Rate 15 mL/min (>60); Est Glom Filt Rate - Afr Amer 18 mL/min (>60); Glucose 105 mg/dL (74-106); Potassium 4.2 mmol/L (3.5-5.1); Sodium Level 135 mmol/L (136-145)
== END ==
PROVIDERS: PCP Internal Medicine; Referring Provider Internal Medicine Nephrology; Visit Provider Internal Medicine Nephrology
DX: N18.4 Chronic kidney disease, stage 4 (severe) (principal)
CPT/HCPCS: 36415; 80048

== ENCOUNTER → 2021-02-07 13:32 | Outpatient (CLI) | payer MEDICARE, SELFPAY ==
[2021-02-07 13:49] LABS: Protein, Urine (Random) 140.4 mg/dL (<11.9); Protein:Creat Ratio 4023 mg/g CRE (0-200)
== END ==
PROVIDERS: PCP Internal Medicine; Referring Provider Internal Medicine Nephrology; Visit Provider Internal Medicine Nephrology
DX: N18.4 Chronic kidney disease, stage 4 (severe) (principal)
CPT/HCPCS: 82570; 84156

== ENCOUNTER → 2021-04-14 16:10 | Outpatient (CLI) | payer MEDICARE, SELFPAY ==
[2021-04-14 16:57] LABS: Hematocrit 27.7 % (37-47); Hemoglobin 9.7 g/dL (12.0-15.0); Mean Corpuscular Hgb 31.1 pg (27.0-32.0); Mean Corpuscular Volume 88.8 fL (81-99); Platelet Count 241 K/mm3 (150-450); RBC Distribution Width CV 13.4 % (11.6-14.6); RBC Distribution Width SD 43.5 fl (35.1-43.9); Red Blood Count 3.12 M/mm3 (4.2-5.4); White Blood Count 5.7 K/mm3 (4.4-11.0)
[2021-04-14 17:10] LABS: Albumin, Serum 3.4 g/dL (3.2-5.0); BUN 30 mg/dL (7-18); BUN/Creat Ratio 8.6 RATIO (10-20); Calcium,Total 9.1 mg/dL (8.5-10.1); Chloride 101 mmol/L (98-107); EST Glomerular Filtration Rate 13 mL/min (>60); Est Glom Filt Rate - Afr Amer 16 mL/min (>60); Glucose 104 mg/dL (74-106); Magnesium 2.2 mg/dL (1.6-2.6); Phosphorus 3.8 mg/dL (2.5-4.9); Sodium Level 133 mmol/L (136-145)
[2021-04-14 17:20] LABS: Vitamin D,25 Hydroxy 15.4 ng/mL
[2021-04-17 08:44] LABS: PTHIN 209.6 pg/mL (18.4-80.1)
== END ==
PROVIDERS: PCP Internal Medicine; Referring Provider Internal Medicine Nephrology; Visit Provider Internal Medicine Nephrology
DX: N18.4 Chronic kidney disease, stage 4 (severe) (principal)
CPT/HCPCS: 36415; 80069; 82306; 83735; 83970; 85027

== ENCOUNTER → 2021-04-15 11:01 | Outpatient (CLI) | payer MEDICARE, SELFPAY ==
[2021-04-15 11:25] LABS: Protein, Urine (Random) 135.3 mg/dL (<11.9); Protein:Creat Ratio 3366 mg/g CRE (0-200)
== END ==
PROVIDERS: PCP Internal Medicine; Visit Provider Internal Medicine Nephrology
DX: N18.4 Chronic kidney disease, stage 4 (severe) (principal)
CPT/HCPCS: 82570; 84156

== ENCOUNTER 2021-08-03 15:05 | Outpatient (CLI) | payer MEDICARE, SELFPAY ==
[2021-08-03 16:25] LABS: Absolute Lymphocyte Count 0.43 X10^3/uL (0.83-4.51); Absolute Neutrophil Count 4.6 X10^3/uL (2.0-7.7); Basophil# 0.06 X10^3/uL; Eosinophil# 0.15 X10^3/uL; Eosinophils% 2.6 % (0-5); Hematocrit 22.9 % (37-47); Hemoglobin 7.9 g/dL (12.0-15.0); Lymphocyte # 0.43 X10^3/ul (0.83-4.51); Lymphocyte % 7.5 % (19-41); Mean Corp Hgb Conc 34.5 g/dL (32-36); Mean Corpuscular Hgb 29.3 pg (27.0-32.0); Mean Corpuscular Volume 84.8 fL (81-99); Mean Platelet Vol. 10.8 fl (6.2-12.0); Monocyte# 0.41 X10^3/uL; Monocyte% 7.2 % (0-10); NRBC Flagged by Analyzer 0 % (0-5); Neutrophil # 4.64 X10^3/uL (2.7-7.7); POSITIVE DIFFERENTIAL YES; Platelet Count 222 K/mm3 (150-450); RBC Distribution Width CV 13.2 % (11.6-14.6); RBC Distribution Width SD 40.9 fl (35.1-43.9); White Blood Count 5.7 K/mm3 (4.4-11.0)
[2021-08-03 16:36] LABS: Differential Indicated SCAN CRITERIA MET
[2021-08-03 16:47] LABS: Albumin, Serum 3.3 g/dL (3.2-5.0); BUN 25 mg/dL (7-18); BUN/Creat Ratio 6.9 RATIO (10-20); Calcium,Total 8.5 mg/dL (8.5-10.1); Chloride 101 mmol/L (98-107); EST Glomerular Filtration Rate 13 mL/min (>60); Est Glom Filt Rate - Afr Amer 16 mL/min (>60); Glucose 105 mg/dL (74-106); Phosphorus 4.4 mg/dL (2.5-4.9); Sodium Level 133 mmol/L (136-145)
[2021-08-03 17:20] LABS: Vitamin D,25 Hydroxy 58.9 ng/mL
[2021-08-03 17:27] LABS: Differential Comment SCANNED
[2021-08-04 09:53] LABS: PTHIN 192.8 pg/mL (18.4-80.1)
== END 2021-08-03 23:59 | disposition home or self-care (01) ==
LOC: LAB 15:06
PROVIDERS: PCP Internal Medicine; Referring Provider Internal Medicine Nephrology; Visit Provider Internal Medicine Nephrology
DX: N18.4 Chronic kidney disease, stage 4 (severe) (principal); D64.9 Anemia, unspecified
CPT/HCPCS: 36415; 80069; 82306; 83970; 85025

== ENCOUNTER 2021-08-04 13:18 | Outpatient (CLI) | payer MEDICARE, SELFPAY ==
[2021-08-04 17:11] LABS: Protein:Creat Ratio 2274 mg/g CRE (0-200)
== END 2021-08-04 23:59 | disposition home or self-care (01) ==
LOC: LAB 08-15 13:18
PROVIDERS: PCP Internal Medicine; Visit Provider Internal Medicine Nephrology
DX: N18.4 Chronic kidney disease, stage 4 (severe) (principal)
CPT/HCPCS: 82570; 84156

== ENCOUNTER 2021-08-21 17:07 | Outpatient (CLI) | payer MEDICARE, SELFPAY ==
[2021-08-22 09:08] LABS: Hepatitis B Surface Antigen Non-Reactive (Nonreactive)
== END 2021-08-21 23:59 | disposition home or self-care (01) ==
LOC: LAB 17:08
PROVIDERS: PCP Internal Medicine; Visit Provider Internal Medicine Nephrology
DX: N18.4 Chronic kidney disease, stage 4 (severe) (principal)
CPT/HCPCS: 36415; 87340

== ENCOUNTER 2021-08-24 10:52 | Day surgery (SDC) | payer MEDICARE, SELFPAY ==
[2021-08-24] VITALS (8 sets, daily range): BP systolic 149–154; BP diastolic 64–71; PULSE 70–81; RESP 14–18; TEMP 36.9–37.1; O2SAT 95–100; BMI 30.6
--- NOTE | 2021-08-24 11:01 | EKG12_ITS ---
Test Reason : PREOP Blood Pressure : / mmHG Vent. Rate : 070 BPM Atrial Rate : 070 BPM P-R Int : 108 ms QRS Dur : 082 ms QT Int : 434 ms P-R-T Axes : 033 012 018 degrees QTc Int : 468 ms Sinus rhythm with short [place] Otherwise normal ECG Confirmed by MOMO SUNG, SANDRA ([id number]), subeditor PRASANNA SINGLETON ([id number]) on 08/31/2021 12:42:12 PM Referred By: Bassam Faye Confirmed By:SANDRA BARR MD
[2021-08-24 12:07] LABS: Hematocrit 22.9 % (37-47); Hemoglobin 7.9 g/dL (12.0-15.0); Mean Corp Hgb Conc 34.5 g/dL (32-36); Mean Corpuscular Hgb 29.5 pg (27.0-32.0); Mean Corpuscular Volume 85.4 fL (81-99); Mean Platelet Vol. 10.5 fl (6.2-12.0); Platelet Count 223 K/mm3 (150-450); RBC Distribution Width CV 13.3 % (11.6-14.6); RBC Distribution Width SD 41.5 fl (35.1-43.9); Red Blood Count 2.68 M/mm3 (4.2-5.4); White Blood Count 6.4 K/mm3 (4.4-11.0)
[2021-08-24 12:28] LABS: Anion Gap 10 (5-15); BUN 29 mg/dL (7-18); BUN/Creat Ratio 6.6 RATIO (10-20); Calcium,Total 8.4 mg/dL (8.5-10.1); Chloride 103 mmol/L (98-107); Creatinine, Serum 4.37 mg/dL (0.55-1.02); EST Glomerular Filtration Rate 10 mL/min (>60); Est Glom Filt Rate - Afr Amer 13 mL/min (>60); Estimated Creatinine Clearance 9.16 ml/min; Glucose 107 mg/dL (74-106); Potassium 4.4 mmol/L (3.5-5.1); Sodium Level 133 mmol/L (136-145)
--- NOTE | 2021-08-24 12:36 | HP.PCM_ITS ---
History and Physical Date of Admission: 08/24/21 Visit Reasons: TUNNELED DIALYSIS CATHETER PLACEMENT Chief Complaint: Tunneled dialysis catheter placement Surgical Consultant Required: No Is patient in pain?: No Allergies codeine Allergy (Verified 09/17/20 02:47) Nausea adhesive tape Adverse Reaction (Verified 08/22/21 13:58) Rash NARCOTICS Adverse Reaction (Uncoded 09/17/20 02:47) Upset Stomach Medications atorvastatin [Lipitor] 40 mg PO QHS 09/17/20 [History Confirmed 09/17/20] jocfquhnjt-gsrvebuxxvrgx-lyji 1 tab PO Q6H PRN 09/17/20 [History Confirmed 08/22/21] fluticasone propionate 1 spray INTRANASAL DAILY 09/17/20 [History Confirmed 08/22/21] lansoprazole 15 mg PO DAILY 09/17/20 [History Confirmed 08/22/21] polyethylene glycol 3350 [Miralax] 17 g PO DAILY 09/17/20 [History Confirmed 08/22/21] psyllium 1 packet PO DAILY 09/17/20 [History Confirmed 08/22/21] amlodipine 10 mg PO DAILY #30 tab 09/22/20 [Rx Confirmed 08/22/21] acetaminophen 325 mg capsule 325 mg PO ONCE PRN 08/22/21 [History Confirmed 08/22/21] bumetanide 1 mg tablet 1 mg PO BID tab 08/22/21 [History Confirmed 08/22/21] cholecalciferol (vitamin D3) 1,250 mcg (50,000 unit) capsule 1,250 mcg PO QWEEK 08/22/21 [History Confirmed 08/22/21] cyanocobalamin (vitamin B-12) 1,000 mcg capsule 1,000 mcg PO DAILY 08/22/21 [History Confirmed 08/22/21] dicyclomine 10 mg capsule 10 mg PO TID cap 08/22/21 [History Confirmed 08/22/21] hydralazine 100 mg tablet 50 mg PO ONCE tab 08/22/21 [History] labetalol 200 mg tablet 400 mg PO DAILY tab 08/22/21 [History] hdhjjmci-pdxfdr-XZ-thonzonm 3.3 mg-3 mg-10 mg-0.5 mg/mL ear drops,susp 1 applic OTIC (EAR) Q4H 08/22/21 [History Confirmed 08/22/21] potassium chloride 20 mEq tablet,extended release 20 meq PO TID tab 08/22/21 [History] PFSH Medical History Cholecystectomy planned CKD (chronic kidney disease) stage 4, GFR 15-29 ml/min Ganglion cyst of dorsum of right wrist History of cyst of breast HTN (hypertension) Kidney disease Kidney stones Migraines Non-smoker Surgical History (Updated 08/22/21 @ 13:56 by Angelita Saturday) H/O: hysterectomy History of cholecystectomy History of tonsillectomy and adenoidectomy Hx of appendectomy Family History (Updated 08/22/21 @ 13:57 by Angelita Saturday) Father Heart disease Hypertension High cholesterol Other CVA (cerebral vascular accident) Social History Smoking Status: Never smoker HPI HPI HPI: LALITA JOINER, is a 76 F who presents to the office today for need to start dialysis. Patient notes she has had uncontrolled hypertension for years. She notes being on multiple blood pressure medications to assist with control of her blood pressure. She has been told by her manager contact that her hypertension status has caused her decline in her renal function. Dr. Castro is her manager contact. Patient notes her GFR is currently at 13. She notes 3 months prior her GFR was 13. Patient was referred to our office to have tunneled dialysis catheters placed in order to start dialysis. Patient has never been on dialysis previously. She does not have a fistula currently placed and has not had any vein mapping. She denies previous myocardial infarction, cardiac stent placement. She denies pulmonary concerns. She does ride in a wheel chair long distances due to balance concerns. ROS General General: No weight change, appetite, fatigue, colon cancer, breast cancer or weakness HEENT HEENT: No difficulty swallowing, eye injury, eye surgery, swollen glands or hoarseness Endo Endocrine: No thyroid disease, diabetes mellitus, thyroid cancer, Hair loss, heat intolerance or cold intolerance Skin Skin: No rash or changing moles Musc Musculoskeletal: No back problems, arthritis, rheumatoid arthritis, gout or joint pain Cardio Cardiovascular: No murmur, pacemaker, heart disease, atrial fibrillation, high blood pressure, heart attack, heart stent, palpitations, shortness of breat with exertion or chest pain Psych Psychiatric: No depression, anxiety or hearing voices Resp Respiratory: No shortness of breath, No sleep apnea, No cough, No COPD, No asthma, No emphysema and No wheezing Gastro Gastrointestinal: No abdominal pain, No nausea or vomiting, No diarrhea, No constipation, No blood in stool, No acid reflux, No hemorrhoids, No ulcers, No gallbladder problem and No black,tarry stools [place] Hematologic: No blood thinners, No blood disorders, No bleeding, No anemia and No blood clots Neuro Neurologic: No system reviewed and no additional complaints, except as documented, No as per HPI, No abnormal gait, No abnormal hearing, No abnormal movements, No abnormal speech, No behavioral changes, No burning sensations, No confusion, No convulsions, No disequilibrium, No dizziness, No localized weakness, No frequent falls, No headache(s), No lack of coordination, No loss of vision, No memory loss, No numbness, No other visual disturbances, No radicular pain, No restless legs, No sensory deficit, No syncope, No tingling, No tremor(s), No weakness and No other Exam Const General: cooperative, healthy appearing, comfortable and no acute distress [facility] [place] Head: normal to inspection Eyes General: appearance normal, both eyes and all related structures Neck Neck: normal visual inspection Neck mass: No Resp Effort & Inspection: normal respiratory effort Auscultation: clear to auscultation bilaterally Cardio Rate: regular rate Rhythm: regular rhythm GI Inspection: normal to inspection Palpation: soft Auscultation: normal bowel sounds Skin General: no rashes or lesions noted Neuro General: no focal motor deficits and CN's II-XI intact bilaterally Extrem General: edema Laterality: bilateral Location: lower extremity Severity: pitting and 2+ Psych Appearance: grossly normal Affect: anxious affect Attitude: cooperative Assessment and Plan Assessment and Plan (1) CKD (chronic kidney disease) stage 4, GFR 15-29 ml/min: Status: Chronic Orders: Orders: Saphenous Vein Mapping, Bilat 08/22/21 Plan - Francy ROBLES PA-C: Dr. Faye also evaluated this patient. Patient is a 76 y/o F in need of tunneled dialysis catheters in preparation to start dialysis treatment. After com municating with the dialysis center, patient has a start date of 08/28 for dialysis treatment. Patient is very anxious about starting dialysis. She voices concern of the quick processes that are being put in place. There are unanswered questions in regards to the process of initiating dialysis. We have directed the patient and her to reach out to Dr. Castro's office to have those questions further answered. Dr. Faye will plan to perform a right chest tunneled dialysis catheter placement under MAC local on . Procedure details, risks and benefits have been explained to the patient. Patient will also need to obtain vein mapping and follow-up with Dr. Faye to further discuss a potential placement of a fistula. Patient seemed very anxious and overwhelmed throughout the entire appointment. Patient and her have had the opportunity to ask and have questions answered. Patient verbally understands and agrees with the plan. Patient and her were very appreciative of our care. Thank you for the opportunity to evaluate and care for this patient. I have re-examined the patient. There are no clinical changes since date of exam. Bassam Faye M.D., F.A.C.S.
--- NOTE | 2021-08-24 12:39 | DCINST_ITS ---
Discharge Instructions Procedure Port-A-Cath Diet Discharge Diet: No restrictions (Pain medication may cause nausea. You should typically eat light foods as you take your pain medication.) Activity Discharge Activity: Return to Normal Activity and May Shower (Leave the bandage on for 2-3 days. When you remove the bandage, leave the steri-strips intact until they fall off.) Additional Activity Instructions:: May not drive, work with heavy equipment, or sign legal documents for [address]. [address] if you are no longer taking narcotic pain medications. You may drive when you are no longer taking pain medications. Follow Up Care Please Follow Up With: Bassam Faye MD Test Results: Please keep the catheter operative site clean and dry. The dialysis center will assist with dressing changes. Please confirm that you have a office follow-up to discussed and arteriovenous fistula creation subsequent to your vein mapping procedure. Office number: [phone] Bsasam Faye M.D., F.A.C.S. Discharge Plan Admission Attending Provider: Bassam Faye Primary Care Provider: Nohemi Cardoza Discharge Orders/Prescriptions Prescriptions: No Action hydralazine 100 mg tablet 50 mg PO QHS RF: 0 labetalol 200 mg tablet 400 mg PO DAILY RF: 0 potassium chloride 20 mEq tablet extended release 20 meq PO TID RF: 0 acetaminophen [Tylenol] 325 mg capsule 325 mg PO ONCE PRN (Reason: Pain) RF: 0 cyanocobalamin (vitamin B-12) 1,000 mcg capsule 1,000 mcg PO DAILY RF: 0 cholecalciferol (vitamin D3) 1,250 mcg (50,000 unit) capsule 1,250 mcg PO QWEEK RF: 0 Cortisporin-TC 3.3-3-10-0.5 mg/mL drops,suspension 1 applic otic (ear) Q4H PRN (Reason: Ear Pain) RF: 0 dicyclomine 10 mg capsule 10 mg PO TID RF: 0 atorvastatin [Lipitor] 40 mg Tablet 40 mg PO QHS RF: 0 polyethylene glycol 3350 [Miralax] 17 gram Powder In Packet 17 g PO DAILY RF: 0 psyllium Packet 1 packet PO DAILY RF: 0 ixmdkwzbdz-etmtwgnxawihh-yesp 50-325-40 mg Tablet 1 tab PO Q6H PRN (Reason: Headache) RF: 0 lansoprazole 15 mg Capsule,Delayed Release(Dr/Ec) 15 mg PO 1200 RF: 0 fluticasone propionate 50 mcg/actuation [place],Suspension 1 spray INTRANASAL DAILY PRN (Reason: ALLERGIES) RF: 0 amlodipine 10 mg Tablet 10 mg PO DAILY Qty: 30 RF: 1 bumetanide 1 mg tablet 1 mg PO BID RF: 0 Other Ambulatory Orders: 12 Lead EKG (Routine) Location: None Selected Ordered By: Dr. Bassam Faye
--- NOTE | 2021-08-24 13:03 | RAD_ITS ---
STUDY: X-RAY CHEST REASON FOR EXAM: Female, 76 years old. Line placement TECHNIQUE: Single AP portable view of the chest. COMPARISON: Comparison is made with prior examination dated 08/13/2020. FINDINGS: A right-sided double-lumen catheter has been placed with the tip at the junction of the superior vena cava and right atrium. The lungs are clear and expanded. There is no demonstrated pleural abnormality. There is borderline cardiomegaly. Normal mediastinum and victor m. Normal visualized pulmonary arteries. There is atherosclerotic calcification of the aortic arch with tortuosity. There are diffuse degenerative changes of the visualized thoracic spine. Normal visualized ribs, clavicles, and shoulders. There is no demonstrated abnormality of the visualized soft tissue structures of the upper abdomen. RAD/Chest 1 View (Portable) IMPRESSION: The tip of the right double-lumen catheter is at the junction of the superior vena cava and right atrium. Electronically Signed: Buddy Dela Cruz MD at 14:40 EDT ,
[2021-08-24] MEDS: Cefazolin 2 GM in 0.9% Normal Saline 100 ML IV (13:31)
[2021-08-24] MEDS: Lidocaine 1% (50 ml mdv) 50 ML Vial (13:38)
[2021-08-24] MEDS: Bupivacaine Mpf 0.5% 30 ML VIAL (13:38)
--- NOTE | 2021-08-24 13:49 | PCM.OPRPT ---
Problems Associated Problem List Diagnoses (1) CKD (chronic kidney disease) stage 4, GFR 15-29 ml/min: Report of Operation Date of Procedure: 08/24/21 Pre-Operative Diagnosis: End-stage renal disease, stage V Post-Operative Diagnosis: Same Surgery/Procedure Performed:: Right internal jugular 19 cm precurved palindrome catheter placement Description of Surgical Findings:: Timeout informed consent was obtained. 76-year-old female was taken to the operating place upon the table underwent monitored anesthesia care. Ancef 2 g were given intravenously. The neck and chest were sterilely prepped and draped. Ultrasound was utilized. 1% lidocaine mixed 50-50 with 0.5% Marcaine was used as a local anesthetic. Under ultrasound guidance local was instilled in the right neck micropuncture needle inserted micropuncture wire inserted local instilled down down upon the right chest wall. A 19 cm greater curve planned on catheter was introduced from the chest to the neck site. Micropuncture sheath was inserted 035 J-wire was inserted fluoroscopy demonstrated good positioning. Serial dilatation was performed. The sheath dilator was inserted and the dilator wire removed the catheters and through the sheath the sheath was split the catheter was nicely positioned at the SVC atrial junction. It was secured to skin with 3-0 nylon. The neck site was closed with a opted 5-0 Vicryl subdermal stitch. Steri-Strip Telfa OpSite applied to that incision. Silver impregnated dressing applied to the catheter exit site. Sponge and instrument and needle counts were reported to the surgeon be correct. Blood loss minimal. She tolerated the procedure well and was taken to the recovery room in satisfactory addition without apparent complication. Stat portable chest x-ray is pending. Bassam Faye M.D., F.A.C.S. Surgeon: Bassam Faye Type of Anesthesia: Local MAC Anesthesiologist: Faraz Chaudhry
[2021-08-24] MEDS: Heparin 10,000 UNITS/10 ML Vial 10000 UNITS (13:50)
== END 2021-08-24 23:59 | disposition home or self-care (01) ==
LOC: SDC 11:11 → AC 11:12
PROVIDERS: PCP Internal Medicine; Referring Provider Surgery; Visit Provider Surgery
PROC: (CPT 49418; principal; 2021-08-24 13:15)
DX: I12.0 Hypertensive chronic kidney disease with stage 5 chronic kidney disease or end stage renal disease (principal); N18.4 Chronic kidney disease, stage 4 (severe)
CPT/HCPCS: 49418; 00790; 71045; 76000; 80048; 85027; 93005; A4216; C1750

== ENCOUNTER → 2021-09-19 | Outpatient (CLI) | payer MEDICARE, SELFPAY ==
--- NOTE | 2021-09-19 14:06 | VDUE_ITS ---
Reason For Study: End stage renal disease Right Arm Left Arm Right Cephalic Vein at the wrist measures Left Cephalic Vein at the wrist measures 0.12 x 0.12 cm. 0.12 x 0.12 cm. Right Cephalic Vein in the forearm measures Left Cephalic Vein in the forearm measures 0.14 x 0.14 cm. 0.12 x 0.13 cm. Right Cephalic Vein below antecub measures Left Cephalic Vein below antecub measures 0.13 x 0.13 cm. 0.16 x 0.16 cm. Right Cephalic Vein above antecub measures Left Cephalic Vein above antecub measures 0.21 x 0.23 cm. 0.22 x 0.20 cm. Right Cephalic Vein mid bicep measures 0.24 x Left Cephalic Vein at mid bicep measures 0.24 cm. 0.23 x 0.23 cm. Right Cephalic Vein at the shoulder measures Left Cephalic Vein at the shoulder measures 0.23 x 0.24 cm. 0.16 x 0.15 cm. Right Basilic Vein at the origin measures Basilic vein at origin measures 0.30 x 0.31 0.19 x 0.20 cm. cm. Right Basilic Vein mid bicep measures 0.24 x Basilic vein at bicep measures 0.22 x 0.23 0.23 cm. cm. Right Basilic Vein above antecub measures Basilic vein above antecub measures 0.22 x 0.14 x 0.14 cm. 0.23 cm. Right Brachial artery measures 0.45 x 0.45 Left Brachial artery measures 0.42 x 0.41 cm cm, with a velocity of 130.8cm/sec. with a velocity of 119.6 cm/sec. Right Radial artery measures 0.19 x 0.20 cm Left Radial artery measures 0.22 x 0.23 cm with a velocity of 137.3 cm/sec. with a velocity of 115.2 cm/sec. VL/Saphenous Vein Mapping, Bilat Interpretation Summary Very small bilateral forearm cephalic veins although patent and compressible. B orderline bilateral upper arm cephalic veins patent and compressible. Small right upper arm basilic vein patent and compressible Borderline left upper arm basilic vein patent and compressible Small bilateral radial arteries Normal diameter and flow bilateral brachial arteries Ordering Physician: Francy Nogueira Referring Physician: Nohemi Cardoza M.D. Performed By: Shanna Cervantes RVT ?
== END | disposition home or self-care (01) ==
PROVIDERS: PCP Internal Medicine; Visit Provider Physician Assistant
DX: N18.6 End stage renal disease (principal)
CPT/HCPCS: 93930; 93970

== ENCOUNTER → 2021-10-26 | Outpatient (CLI) | payer MEDICARE, SELFPAY | END | disposition home or self-care (01) | PROVIDERS: PCP Internal Medicine; Visit Provider Surgery | DX: Z01.818 Encounter for other preprocedural examination (principal) | CPT/HCPCS: 93985 ==

== ENCOUNTER 2021-12-27 16:11 | Observation (INO) | payer MEDICARE, SELFPAY ==
[2021-12-27] VITALS (8 sets, daily range): BP systolic 138–150; BP diastolic 62–69; PULSE 64–81; RESP 14–20; TEMP 36.3–36.7; O2SAT 98–100; BMI 28.9; BMI 24.7
--- NOTE | 2021-12-27 16:21 | CT_ITS ---
We are attempting to reach an attending provider to discuss findings. An addendum with communication details will be sent when the communication is complete. STUDY: CT BRAIN WITHOUT CONTRAST REASON FOR EXAM: Female, 76 years old. Neuro deficit, acute, stroke suspected RADIATION DOSAGE (If Supplied By Facility): CTDIvol = ( ) mGy, DLP = ( 812.98 ) mGycm TECHNIQUE: Transaxial CT imaging of the brain was performed without administration of intravenous contrast material. Individualized dose optimization techniques were used for this CT. COMPARISON: MR brain 08/14/[address] brain 08/13/2020 FINDINGS: Normal soft tissue structures. Normal calvarium. There is mild cerebral atrophy with widening of the extra-axial spaces and ventricular dilatation. There are areas of decreased attenuation within the white matter tracts of the supratentorial brain, consistent with microvascular disease changes. Normal basal ganglia and thalami. Normal brainstem. Normal cerebellum. There is no intracranial hemorrhage. There are no findings of an acute ischemic infarction. Normal visualized paranasal sinuses. CT/STROKE Brain/Head without Cont IMPRESSION: No acute disease Electronically Signed: Pako Moody MD at 16:59 EDT ,
--- NOTE | 2021-12-27 16:21 | EKG12_ITS ---
Test Reason : POSSIBLE STROKE Blood Pressure : / mmHG Vent. Rate : 066 BPM Atrial Rate : 066 BPM P-R Int : 130 ms QRS Dur : 082 ms QT Int : 470 ms P-R-T Axes : 051 014 023 degrees QTc Int : 492 ms Sinus rhythm with Premature atrial complexes Prolonged QT Abnormal ECG Confirmed by SIMEON SUNG, LISA ([id number]), newspaper editor managing PRASANNA SINGLETON ([id number]) on 12/29/2021 2:28:33 PM Referred By: AMINAH Confirmed By:MO HENDRIX MD
--- NOTE | 2021-12-27 16:23 | ED.VIS.STROK ---
HPI History of Present Illness Chief Complaint: Neuro S/Sx Informant: patient and spouse/S.O. Narrative Narrative: Sent from urgent care for evaluation. Concern for stroke symptoms not resolved. Yesterday 4 PM while in the car severe headache around her head and states 2 hours of expressive aphasia. She states she is only making noises. witnessed this. Headache resolved. There is no hemiparesis. She is end-stage renal disease started on dialysis this past July. She urinates multiple times a day. She is followed by Dr. Brody. She did get dialysis this morning. Denies any stroke history. She states she has an upcoming plan for fistula. After dialysis she went to urgent care to discuss her symptoms yesterday and was sent here. Prior similar symptoms: No PFSH PFSH Medical History Ambulates with cane Anxiety Back pain Cholecystectomy planned CKD (chronic kidney disease) stage 4, GFR 15-29 ml/min Depression Easy bruising Ganglion cyst of dorsum of right wrist Gastric reflux High cholesterol History of cyst of breast History of echocardiogram History of edema History of hiatal hernia History of IBS History of renal dialysis HTN (hypertension) Kidney disease Kidney stones Leg cramps Loss of hearing Low iron Migraines Non-smoker Non-smoker Polio Tremor Home Medications ravvgfofxv-igudfqztmgxdv-ivdevezz 50 mg-325 mg-40 mg tablet 1 tab PO Q6H PRN Headache 09/17/20 [History Last Taken Unknown] fluticasone propionate 50 mcg/actuation nasal spray,suspension 1 spray intranasal DAILY PRN ALLERGIES 09/17/20 [History Last Taken Unknown] lansoprazole 15 mg capsule,delayed release 15 mg PO 1200 reflux 09/17/20 [History Last Taken Unknown] polyethylene glycol 3350 17 gram oral powder packet (Miralax) 17 g PO DAILY constipation 09/17/20 [History Last Taken 12/26/21] psyllium 1 packet PO DAILY constipation 09/17/20 [History Last Taken 12/26/21] acetaminophen 325 mg capsule (Tylenol) 325 mg PO ONCE PRN Pain 08/22/21 [History Last Taken 12/27/21 04:30] bumetanide 1 mg tablet 1 mg PO BID water pill 08/22/21 [History Last Taken 12/26/21] cholecalciferol (vitamin D3) 1,250 mcg (50,000 unit) capsule 1,250 mcg PO TAYLOR 08/22/21 [History Last Taken 12/24/21] cyanocobalamin (vitamin B-12) 1,000 mcg capsule 1,000 mcg PO DAILY 08/22/21 [History Last Taken 12/27/21 04:30] dicyclomine 10 mg capsule 10 mg PO TID bowels 08/22/21 [History Last Taken 12/27/21 04:30] labetalol 200 mg tablet 400 mg PO DAILY 08/22/21 [History Last Taken 12/27/21 04:30] nljskuvu-ocgzty-EH-thonzonm 3.3 mg-3 mg-10 mg-0.5 mg/mL ear drops,susp (Cortisporin-TC) 1 applic otic (ear) Q4H PRN Ear Pain 08/22/21 [History Last Taken 1 Week Ago ~12/20/21] amlodipine 10 mg tablet 10 mg PO DAILY BP 12/27/21 [History Last Taken 12/27/21 04:30] hydralazine 50 mg tablet 50 mg PO QHS SLEEP 12/27/21 [History Last Taken 12/26/21] Allergy/AdvReac Type Severity Reaction Status Date / Time codeine Allergy Nausea Verified 12/27/21 16:12 adhesive tape AdvReac Rash Verified 12/27/21 16:12 NARCOTICS AdvReac Upset Uncoded 12/27/21 16:12 Stomach Family History (Updated 12/27/21 @ 19:[address] Graciela Cárdenas MD) Father Heart disease Hypertension High cholesterol Mother Heart disease Hypertension PAF (paroxysmal atrial fibrillation) Other CVA (cerebral vascular accident) Surgical History H/O: hysterectomy History of cholecystectomy History of insertion of tunneled central venous catheter (CVC) with port History of tonsillectomy and adenoidectomy Hx of appendectomy Hx of colonoscopy Social History (Updated 12/27/21 @ 19:[address] Graciela Cárdenas MD) household members: spouse Smoking Status: Never smoker alcohol intake: never substance use type: does not use ROS ROS ED Constitutional Constitutional ED: Denies chills, fever(s) or sweats Eyes Eyes: Denies change in vision ENT ENT ED: Denies dysphagia or sore throat Cardiovascular Cardiovascular: Denies chest pain, leg edema, palpitations or racing heartbeat Respiratory/Chest Respiratory/Chest: Denies cough, dyspnea or dyspnea on exertion Gastrointestinal Gastrointestinal: Denies abdominal pain, diarrhea, nausea or vomiting Genitourinary Genitourinary ED: Denies dysuria, hematuria or urinary frequency Musculoskeletal Musculoskeletal: Denies back pain, extremity pain or neck pain Integumentary Denies rash or wounds Neurologic Neurologic: Reports headache(s) and other Details: Transient expressive aphasia ; Denies paresthesias or weakness EXAM Physical Exam Const Vital Signs: 12/27/21 16:12 12/27/21 16:21 12/27/21 16:28 Temperature 97.3 F L 97.6 F L Temperature Source Temporal Temporal Pulse Rate 64 65 Respiratory Rate 14 20 H Blood Pressure 138/69 H 145/62 H Blood Pressure Mean 92 89 Pulse Ox 100 99 Oxygen Delivery Method Room Air Room Air Room Air 12/27/21 17:26 Temperature 98.0 F Temperature Source Temporal Pulse Rate 66 Respiratory Rate 18 Blood Pressure 140/67 H Blood Pressure Mean 91 Pulse Ox 99 Oxygen Delivery Method Room Air Positive well nourished and well developed General Appearance ED: well developed and NAD HEENT Reports moist mucous membranes normocephalic and atraumatic Eyes PERRL, EOMs intact bilaterally and conjunctivae normal General Eye ED: Yes normal appearance of both eyes Neck no lymphadenopathy and supple General: Negative for tenderness Chest Wall Chest Narrative: Right chest wall Vas-Cath clean, dry, intact. Chest: Negative for tenderness Resp normal respiratory effort and normal air movement Effort and Inspection: symmetric chest movement; Negative for respiratory distress Cardio regular rate, regular rhythm and no murmurs Peripheral Pulses: pulses 2+ throughout GI normal to inspection, nondistended, normoactive bowel sounds and non-tender Palpation: Negative for guarding or rebound tenderness present Back/Spine no CVA tenderness and no thoracic nor lumbar tenderness Extremity normal to inspection General Extremety ED: Negative for edema or tenderness General Extremity: Negative for edema Neuro oriented x3 and no sensory deficits noted Sensorium / Orientation: awake and alert Skin no rashes or lesions noted and no wounds STROKE Vital Signs/Narrative: Vital Signs Temp Pulse Resp BP Pulse Ox O2 Del Method 12/27/21 17:26 98.0 F 66 18 140/67 H 99 Room Air 12/27/21 16:28 97.6 F L 65 20 H 145/62 H 99 Room Air 12/27/21 16:21 Room Air 12/27/21 16:12 97.3 F L 64 14 138/69 H 100 Room Air Inital Vital Signs reviewed: Yes NIHSS Initial: 1a Level of Consciousness: 0 1b LOC Questions (Score 2 if aphasic/stupor): 0 1c LOC Commands (Only score 1st attempt): 0 2 Best Gaze (If aphasic, use reflexive mvmts.): 0 3 Visual: 0 4 Facial Palsy: 0 5 Motor Arm Right (UN = amputation/fusion): 0 5 Motor Arm Left: 0 6 Motor Leg Right: 0 6 Motor Leg Left: 0 7 Limb ataxia (Only + if out of proportion): 0 8 Sensory (Aphasia/stupor=0 or 1, coma=2): 0 9 Best Language: 0 10 Dysarthria (mute, coma=2, intubated=UN): 0 11 Extinction and Inattention (only scored if +): 0 Total Score: 0 MDM MDM MDM Narrative Medical decision making narrative: Patient vital stable currently asymptomatic symptoms occurred over 24 hours ago. She is not a candidate for tPA. She had expressive aphasia witnessed by significant other. Stroke work-up will be initiated. We will plan for admission. CT scan a discussion with radiology negative. Labs are stable. Chest x-ray 1 view reviewed by myself and read by radiologist shows no acute process. Reevaluation remained symptom-free. I discussed with hospitalist Dr. Cárdenas for admission. Lab Data Attestation: I reviewed the patient's lab results. Labs: Laboratory Results - last 24 hr 12/27/21 12/27/21 12/27/21 16:26 16:26 16:26 WBC 6.2 RBC 3.60 L Hgb 11.6 L Hct 33.3 L MCV 92.5 MCH 32.2 H MCHC 34.8 RDW Std Deviation 46.0 H RDW Coeff of Ricky 14.6 Plt Count 187 MPV 11.0 Immature Gran % (Auto) 0.300 Neut % (Auto) 73.0 H Lymph % (Auto) 13.3 L Norton % (Auto) 11.3 H Eos % (Auto) 1.6 Baso % (Auto) 0.5 Absolute Neuts (auto) 4.5 Absolute Lymphs (auto) 0.82 L Nucleated RBC % 0.3 PT 12.8 INR 1.0 APTT 30.6 Sodium 135 L Potassium 3.6 Chloride 97 L Carbon Dioxide 32.0 Anion Gap 6 BUN 13 Creatinine 2.38 H Estim Creat Clear Calc 16.12 Est GFR (MDRD) Af Amer 25 L Est GFR (MDRD) Non-Af 21 L BUN/Creatinine Ratio 5.5 L Glucose 107 H Calcium 9.3 Phosphorus Magnesium Troponin I High Sens 8 12/27/21 16:26 WBC RBC Hgb Hct MCV MCH MCHC RDW Std Deviation RDW Coeff of Ircky Plt Count MPV Immature Gran % (Auto) Neut % (Auto) Lymph % (Auto) Norton % (Auto) Eos % (Auto) Baso % (Auto) Absolute Neuts (auto) Absolute Lymphs (auto) Nucleated RBC % PT INR APTT Sodium Potassium Chloride Carbon Dioxide Anion Gap BUN Creatinine Estim Creat Clear Calc Est GFR (MDRD) Af Amer Est GFR (MDRD) Non-Af BUN/Creatinine Ratio Glucose Calcium Phosphorus 2.4 L Magnesium 2.0 Troponin I High Sens Radiography Diagnostic Testing: Clinical Impression(s) from Imaging Studies Brain CT 12/27/21 16:21 IMPRESSION: No acute disease Electronically Signed: Pako Moody MD at 16:59 EDT Reading Location ID and State: [place] / [place] , Service support , ADDENDUM: 12/27/21 1710 IMPRESSION: No acute disease N.B. : The above Results were Read Back by Pako Moody MD to dr sally MD, and understanding confirmed on 12/27/2021 17:03:44 (ET). Electronically Signed: Pako Moody MD at 16:59 EDT Reading Location ID and State: [place] / [place] , Service support , Chest X-Ray 12/27/21 16:44 IMPRESSION: No acute disease Electronically Signed: Pako Moody MD at 17:01 EDT Reading Location ID and State: [place] / [place] , Service support , EKG Initial EKG: Attestation: I personally reviewed and interpreted this EKG as follows: Comments: Sinus rate of 66, no ST or T wave changes, PAC noted. Discharge Plan Dx/Rx/DC Orders Clinical Impression: Brain TIA, Aphasia, Headache, ESRD on hemodialysis Disposition Disposition: Acute Care Hospital [facility] Discharge Date/Time: 12/27/21 18:08
[2021-12-27 16:33] LABS: Absolute Lymphocyte Count 0.82 X10^3/uL (0.83-4.51); Absolute Neutrophil Count 4.5 X10^3/uL (2.0-7.7); Basophil# 0.03 X10^3/uL; Basophil% 0.5 % (0-1); Eosinophils% 1.6 % (0-5); Hematocrit 33.3 % (37-47); Hemoglobin 11.6 g/dL (12.0-15.0); Lymphocyte # 0.82 X10^3/ul (0.83-4.51); Lymphocyte % 13.3 % (19-41); Mean Corp Hgb Conc 34.8 g/dL (32-36); Mean Corpuscular Hgb 32.2 pg (27.0-32.0); Mean Corpuscular Volume 92.5 fL (81-99); Monocyte% 11.3 % (0-10); NRBC Flagged by Analyzer 0.3 % (0-5); Neutrophil # 4.51 X10^3/uL (2.7-7.7); Platelet Count 187 K/mm3 (150-450); RBC Distribution Width CV 14.6 % (11.6-14.6); White Blood Count 6.2 K/mm3 (4.4-11.0)
[2021-12-27 16:40] LABS: Prothrombin Time (Protime)PT. 12.8 SECONDS (11.7-14.9)
[2021-12-27 16:42] LABS: Partial Thromboplast Time 30.6 Seconds (24.1-36.2)
--- NOTE | 2021-12-27 16:44 | RAD_ITS ---
STUDY: X-RAY CHEST REASON FOR EXAM: Female, 76 years old. Neuro deficit, acute, stroke suspected TECHNIQUE: Single frontal view of the chest. COMPARISON: 08/24/2021 FINDINGS: Dual lumen right IJ catheter unchanged. The lungs are clear and expanded. There is no demonstrated pleural abnormality. Normal size heart. Normal mediastinum and victor m. Normal visualized pulmonary arteries. Normal visualized aortic arch and descending thoracic aorta. Normal visualized thoracic spine. Normal visualized ribs, clavicles, and shoulders. There is no demonstrated abnormality of the visualized soft tissue structures of the upper abdomen. RAD/Chest 1 View IMPRESSION: No acute disease Electronically Signed: Pako Moody MD at 17:01 EDT ,
[2021-12-27 16:50] LABS: Anion Gap 6 (5-15); BUN 13 mg/dL (7-18); BUN/Creat Ratio 5.5 RATIO (10-20); Calcium,Total 9.3 mg/dL (8.5-10.1); Chloride 97 mmol/L (98-107); Creatinine, Serum 2.38 mg/dL (0.55-1.02); EST Glomerular Filtration Rate 21 mL/min (>60); Est Glom Filt Rate - Afr Amer 25 mL/min (>60); Estimated Creatinine Clearance 16.12 ml/min; Glucose 107 mg/dL (74-106); Potassium 3.6 mmol/L (3.5-5.1); Sodium Level 135 mmol/L (136-145); Troponin-I HS 8 pg/mL (3.0-54.0)
--- NOTE | 2021-12-27 17:57 | PCM.HP.STD ---
HPI - General General Date of Admission: 12/27/21 Date of Service: 12/27/21 Chief Complaint: Expressive aphasia. HPI Narrative The patient is a 76 y/o F w/ PMHx: Chronic anemia/AOCD, ESRD on HD MWF following w/ Dr. Castro with planned 12/29/21 of note AVF initiation at [facility], HTN, HLD, Chronic migraines, Chronic BL LE peripheral neuropathy, IBS, GERD, Anxiety and Depression who presents to the [facility] ED on 12/27/21 with history per her and her spouse of onset expressive aphasia at 4 PM while driving in the car on 12/26/2021 reporting that she could get some words out but the sentences were not complete and was obviously different from her baseline with no other associated neurological symptoms including any vision changes which work again confirmed with patient and lasting approximately 2 hours with resolution following this. She did present to dialysis on day of presentation and following this went to urgent care for evaluation who referred her to the ED for evaluation. Work-up in the ED included T97.3, heart rate 64, BP 138/69, respiratory rate 14, 100% on room air, CBC with WC 6.2, hemoglobin 0.6, platelet 187 with lymphopenia, unremarkable coags, BMP with sodium 135, chloride 97, BUN/creat 13/2.38, glucose 107, troponin 8, CT of the brain with no acute intracranial findings, chest x-ray with new acute cardiopulmonary findings, EKG with sinus rhythm with no acute evidence of ischemia. Patient does take migraine medications which includes a full-strength of aspirin therapy and NR received this thus this was not repeated in the ED. [facility] Medical History Ambulates with cane Anxiety Back pain Cholecystectomy planned CKD (chronic kidney disease) stage 4, GFR 15-29 ml/min Depression Easy bruising Ganglion cyst of dorsum of right wrist Gastric reflux High cholesterol History of cyst of breast History of echocardiogram History of edema History of hiatal hernia History of IBS History of renal dialysis HTN (hypertension) Kidney disease Kidney stones Leg cramps Loss of hearing Low iron Migraines Non-smoker Non-smoker Polio Tremor Home Medications joxktfjumg-uvnfydcztccqn-bhdpuwcv 50 mg-325 mg-40 mg tablet 1 tab PO Q6H PRN Headache 09/17/20 [History Last Taken Unknown] fluticasone propionate 50 mcg/actuation nasal spray,suspension 1 spray intranasal DAILY PRN ALLERGIES 09/17/20 [History Last Taken Unknown] lansoprazole 15 mg capsule,delayed release 15 mg PO 1200 reflux 09/17/20 [History Last Taken Unknown] polyethylene glycol 3350 17 gram oral powder packet (Miralax) 17 g PO DAILY constipation 09/17/20 [History Last Taken 12/26/21] psyllium 1 packet PO DAILY constipation 09/17/20 [History Last Taken 12/26/21] acetaminophen 325 mg capsule (Tylenol) 325 mg PO ONCE PRN Pain 08/22/21 [History Last Taken 12/27/21 04:30] bumetanide 1 mg tablet 1 mg PO BID water pill 08/22/21 [History Last Taken 12/26/21] cholecalciferol (vitamin D3) 1,250 mcg (50,000 unit) capsule 1,250 mcg PO TAYLOR 08/22/21 [History Last Taken 12/24/21] cyanocobalamin (vitamin B-12) 1,000 mcg capsule 1,000 mcg PO DAILY 08/22/21 [History Last Taken 12/27/21 04:30] dicyclomine 10 mg capsule 10 mg PO TID bowels 08/22/21 [History Last Taken 12/27/21 04:30] labetalol 200 mg tablet 400 mg PO DAILY 08/22/21 [History Last Taken 12/27/21 04:30] yhscnlou-bajuee-FZ-thonzonm 3.3 mg-3 mg-10 mg-0.5 mg/mL ear drops,susp (Cortisporin-TC) 1 applic otic (ear) Q4H PRN Ear Pain 08/22/21 [History Last Taken 1 Week Ago ~12/20/21] amlodipine 10 mg tablet 10 mg PO DAILY BP 12/27/21 [History Last Taken 12/27/21 04:30] hydralazine 50 mg tablet 50 mg PO QHS SLEEP 12/27/21 [History Last Taken 12/26/21] Allergy/AdvReac Type Severity Reaction Status Date / Time codeine Allergy Nausea Verified 12/27/21 16:12 adhesive tape AdvReac Rash Verified 12/27/21 16:12 NARCOTICS AdvReac Upset Uncoded 12/27/21 16:12 Stomach Family History (Updated 12/27/21 @ 19:[address] Graciela Cárdenas MD) Father Heart disease Hypertension High cholesterol Mother Heart disease Hypertension PAF (paroxysmal atrial fibrillation) Other CVA (cerebral vascular accident) Surgical History H/O: hysterectomy History of cholecystectomy History of insertion of tunneled central venous catheter (CVC) with port History of tonsillectomy and adenoidectomy Hx of appendectomy Hx of colonoscopy Social History (Updated 12/27/21 @ 19:[address] Graciela Cárdenas MD) household members: spouse Smoking Status: Never smoker alcohol intake: never substance use type: does not use ROS ROS Narrative Admission Review of Systems: CONSTITUTIONAL: No weight loss, fever, chills, + weakness or fatigue. HEENT: Eyes: No visual loss, blurred vision, double vision or yellow sclerae. Ears, Nose, Throat: No hearing loss, sneezing, congestion, runny nose or sore throat. SKIN: No rash or itching, lesions, wounds. CARDIOVASCULAR: No chest pain, chest pressure or chest discomfort, palpitations, edema, orthopnea, syncopal events. RESPIRATORY: No shortness of breath, cough or sputum, wheezing, hemoptysis. GASTROINTESTINAL: + Chronic IBS symptoms. No anorexia, nausea, vomiting, abdominal pain, melena, BRBPR. GENITOURINARY: No dysuria, frequency, urgency or retention. NEUROLOGICAL: + Transient expressive aphasia, chronic headaches, chronic BL LE neuropathy. No dizziness, syncope, paralysis, ataxia, new numbness or tingling in the extremities, focal weakness, change in bowel or bladder control, seizure. MUSCULOSKELETAL: + muscle, back pain, joint pain or stiffness. HEMATOLOGIC: + anemia, bleeding or bruising. LYMPHATICS: No enlarged nodes. No history of splenectomy. PSYCHIATRIC: + history of depression or anxiety. ENDOCRINOLOGIC: No reports of sweating, cold or heat intolerance. No polyuria or polydipsia. ALLERGIES: No history of asthma, hives, eczema or rhinitis. Vital Signs Vital Signs Vital Signs: 12/27/21 16:12 12/27/21 16:21 12/27/21 16:28 Temperature 97.3 F L 97.6 F L Temperature Source Temporal Temporal Pulse Rate 64 65 Respiratory Rate 14 20 H Blood Pressure 138/69 H 145/62 H Blood Pressure Mean 92 89 Pulse Ox 100 99 Oxygen Delivery Method Room Air Room Air Room Air 12/27/21 17:26 Temperature 98.0 F Temperature Source Temporal Pulse Rate 66 Respiratory Rate 18 Blood Pressure 140/67 H Blood Pressure Mean 91 Pulse Ox 99 Oxygen Delivery Method Room Air Weight Weight: 163 lb 2.273 oz Body Mass Index (BMI) 28.9 Physical Exam Narrative Physical Examination: General: Awake, alert, oriented x 3 and cooperative, seated upright in the ED bed, anxious appearing. Skin: Normal color, normal turgor, no icterus, no cyanosis. HEENT: AT/NC, EOMI, PERRLA, MMM, no carotid bruits or JVD noted, right upper chest dialysis access in place. Lungs: Mildly diminished, greater bases, appropriate effort, no rales, ronchi or wheezing. Heart: Currently regular rate and rhythm; no gallop, rub audible. Abdomen: Soft, NTTP, ND, mildly hyperactive BS, no HSM. Extremities: No cyanosis, no clubbing, bilateral pedal to mid simon 2+ pitting edema, notable pain with evaluation which is chronic she notes and request her legs no longer be touched. Neurological: Patient awake, alert, oriented as noted, cognitive function appears intact but patient does frequently look to her for answers, prior reported expressive aphasia is completely resolved, pupils equally reactive to light and accommodation, cranial nerves II-XII grossly normal, moving all 4 extremities, no focal deficits, finger-nose and [id number]-[id number] appropriate bilaterally, equivocal Babinski however patient is extremely ticklish, sensation appropriate. Psychiatric: Affect appears mildly anxious otherwise normal, no acute evidence of depressive feelings. Results Lab / Micro Data Result Diagrams: 12/27/21 16:26 12/27/21 16:26 Labs: Laboratory Results - last 24 hr 12/27/21 16:26: WBC 6.2, RBC 3.60 L, Hgb 11.6 L, Hct 33.3 L, MCV 92.5, MCH 32.2 H, MCHC 34.8, RDW Std Deviation 46.0 H, RDW Coeff of Ricky 14.6, Plt Count 187, MPV 11.0, Immature Gran % (Auto) 0.300, Neut % (Auto) 73.0 H, Lymph % (Auto) 13.3 L, [place]away % (Auto) 11.3 H, Eos % (Auto) 1.6, Baso % (Auto) 0.5, Absolute Neuts (auto) 4.5, Absolute Lymphs (auto) 0.82 L, Nucleated RBC % 0.3 12/27/21 16:26: PT 12.8, INR 1.0, APTT 30.6 12/27/21 16:26: Sodium 135 L, Potassium 3.6, Chloride 97 L, Carbon Dioxide 32.0, Anion Gap 6, BUN 13, Creatinine 2.38 H, Estim Creat Clear Calc 16.12, Est GFR (MDRD) Af Amer 25 L, Est GFR (MDRD) Non-Af 21 L, BUN/Creatinine Ratio 5.5 L, Glucose 107 H, Calcium 9.3, Troponin I High Sens [address] 12/27/21 16:21 IMPRESSION: No acute disease Electronically Signed: Pako Moody MD at 16:59 EDT Reading Location ID and State: [address] [place] [address] , Service support , ADDENDUM: 12/27/21 1710 IMPRESSION: No acute disease N.B. : The above Results were Read Back by Pako Moody MD to dr sally MD, and understanding confirmed on 12/27/2021 17:03:44 (ET). Electronically Signed: Pako Moody MD at 16:59 EDT Reading Location ID and State: [address] [place] [address] , Service support , Chest X-Ray 12/27/21 16:44 IMPRESSION: No acute disease Electronically Signed: Pako Moody MD at 17:01 EDT , Assessment & Plan Assessment/Plan (1) Brain TIA: PLAN: Plan The patient is a 76 y/o F w/ PMHx: Chronic anemia/AOCD, ESRD on HD MWF following w/ Dr. Castro with planned 12/29/21 of note AVF initiation at the [facility], HTN, HLD, Chronic migraines, Chronic BL LE peripheral neuropathy, IBS, GERD, Anxiety and Depression who presents to the [facility] ED on 12/27/21 with history per her and her spouse of onset expressive aphasia at 4 PM while [address] in the car on 12/26/2021 reporting that she could get some words out but the sentences were not complete and was obviously different from her baseline with no other associated neurological symptoms including any vision changes which work again confirmed with patient and lasting approximately 2 hours with resolution following. #1. Expressive aphasia concerning for Acute TIA (Does have migraine Hx, certainly complex migraine could be a possible etiology, less likely): Will admit to PCU, will obtain MRI Brain, MRA Head and carotid ultrasound, will obtain ECHO, PT/OT/Speech/Nutrition evaluation per protocol. Given timeline greater than 24 hours out and completely alleviated symptoms we will continue patient hypertensive regimen, will initiate on aspirin 81 mg daily, will add low to moderate dose statin given age, will obtain FLP, TSH, magnesium as well as hemoglobin A1c. #2. ESRD: Patient with underlying chronic renal disease on dialysis Saturday with chest access in place with planned upcoming 12/30/2019 to [facility] for fistula initiation. Discussed with patient and and reported that they should contact the surgeons office immediately in the morning to update them about current admission to assure nothing will change with this intervention timeline. Patient dialyzed 12/27/2021 of note. Mag and Phos levels pending. #3. Hypertension: Continue home regimen including labetalol, hydralazine, bumetanide, amlodipine with hold parameters as needed, PRN hydralazine. #4. Hyperlipidemia: Adding low to moderate dose statin given acute presentation, FLP in AM. #5. IBS, unclear specific mixed type: We will continue patient significant bowel regimen. #6. Chronic anemia/AOCD: Admission hemoglobin 11.6, baseline prior appears 7-9 however these labs are last performed 08/24/2021, will trend. #7. Anxiety and depression: Noted history, not on regimen, defer to outpatient. #8. Chronic migraines: We will temporarily hold patient migraine medications pending work-up as noted number 1. #9. GERD: We will continue patient home PPI. #10. DVT prophylaxis: Given significant chronic lower extremity neuropathy which she reports started with dialysis will defer any SCDs but placed on heparin chemoprophylaxis. #11. CODE status: Patient does not have healthcare power of district attorney nor living will in place. Discussed the importance of setting these items up with her and her given her disease process and history and noted that if they are interested to discuss this with case management/social work. Discussed CODE status at length including difference between FULL code, DNR-CCA and DNR-CC status. Following discussions about the differences in these status, requested Full Code status. Advanced Care Planning Face to Face Time: 16 minutes. Charges/Coding Visit Charges OBSV E&M: 47961 Initial observation care L3 Procedures Hospitalists Procedures: 15636 Advncd Care Plan 30 Min
--- NOTE | 2021-12-27 18:18 | CDU_ITS ---
Reason For Study: CVA Rt. Velocities/BP Lt. Velocities/BP Prox CCA 60.4/9.5 cm/sec. Prox CCA 79.5/13.5 cm/sec. Mid CCA 64.3/13.4 cm/sec. Mid CCA 65.1/12.4 cm/sec. Dist CCA 61.7/16 cm/sec. Dist CCA 56.4/14.6 cm/sec. Prox ICA 55.2/10.8 cm/sec. Prox ICA 46.5/11.3 cm/sec. Mid ICA 61.7/10.8 cm/sec. Mid ICA 55.3/14.6 cm/sec. Dist ICA 65.6/13.4 cm/sec. Dist ICA 70.7/19 cm/sec. Rt. ICA/CCA = 1.06. Lt. ICA/CCA = 1.09. Prox ECA 69.5/3 cm/sec. Prox ECA 141.2/6 cm/sec. Rt. Vert. 27.6/6.9 cm/sec. Lt. Vert. 38.1/11.6 cm/sec. Right Extracranial There is intimal thickening but no significant atherosclerotic plaque noted in the right common carotid artery. There is heterogeneous, smooth atherosclerotic plaque noted in the right internal carotid artery. There is intimal thickening but no significant atherosclerotic plaque noted in the right external carotid artery. Antegrade flow is noted in the right vertebral artery. Left Extracranial There is intimal thickening but no significant atherosclerotic plaque noted in the left common carotid artery. There is heterogeneous, smooth atherosclerotic plaque noted in the left internal carotid artery. There is heterogeneous, irregular atherosclerotic plaque noted in the left external carotid artery. Antegrade flow is noted in the left vertebral artery. Procedure Carotid Duplex [id number]. This is a Carotid Duplex examination using B-mode, color flow and specral Doppler. Exam performed portable in patient room. VL/Carotid Duplex Ultrasound Interpretation Summary Smooth plaque at the proximal right internal carotid artery with less than 50% stenosis Less than 50% stenosis right external carotid artery Smooth plaque at the proximal left internal carotid artery Less than 50% stenosis left external carotid artery Patent and antegrade vertebral arteries bilaterally Ordering Physician: Graciela Cárdenas Referring Physician: Nohemi Cardoza M.D. Performed By: Shanna Cervantes RVT
--- NOTE | 2021-12-27 18:18 | ECHOD_ITS ---
Reason For Study: CVA Procedure This was a 2D Doppler, Color Flow transthoracic echocardiogram. Exam performed in department. Left Ventricle Normal LV size. The estimated ejection fraction is 65 %. Normal diastology for age. No regional wall motion abnormalities noted. Right Ventricle Normal RV size. Normal systolic function. Atria Normal left atrium. Normal right atrium. No doppler evidence for ASD. Mitral Valve There is moderate to severe mitral annular calcification. There is no mitral valve stenosis. No mitral valve insufficiency. Tricuspid Valve There is no tricuspid stenosis. Trivial tricuspid valve insufficiency. Pulmonary artery systolic pressure is 30 mmHg. Aortic Valve Trisinus/trileaflet aortic valve. There is no aortic stenosis. No aortic valve insufficiency. Pulmonic Valve There is no pulmonic valvular stenosis. No pulmonic valve insufficiency. Great Vessels Normal aortic root. Pericardium/Pleural No pericardial effusion. MMode/2D Measurements & Calculations LVIDd: 4.6 cm IVSd: 0.65 cm Ao root diam: 3.1 cm LVIDs: 3.0 cm LVPWd: 1.0 cm RVDd: 2.5 cm FS: 35.1 % LAV(MOD-sp2): 76.7 ml LVAd ap4: 23.7 cm2 SV(MOD-sp4): 44.9 ml LVLd ap4: 6.4 cm EDV(MOD-sp4): 65.3 ml EDV(sp4-el): 73.8 ml LVAs ap4: 10.8 cm2 LVLs ap4: 5.6 cm ESV(MOD-sp4): 20.4 ml ESV(sp4-el): 17.6 ml EF(MOD-sp4): 68.7 % EF(sp4-el): 76.1 % SV(sp4-el): 56.2 ml LA dimension(2D): 4.1 cm Time Measurements MV dec time: 0.28 sec Doppler Measurements & Calculations MV E max sebastian: 98.4 cm/sec Lat Peak E' Sebastian: 10.3 cm/sec Med Peak E' Sebastian: 7.1 cm/sec MV A max sebastian: 117.7 cm/sec E/E' lat: 9.5 E/E' med: 13.9 MV E/A: 0.84 MV V2 max: 123.0 cm/sec MV dec slope: 352.2 cm/sec2 Ao V2 max: 159.4 cm/sec MV max P.0 mmHg Ao max P.2 mmHg MV V2 mean: 82.4 cm/sec Ao V2 mean: 112.9 cm/sec MV mean P.0 mmHg Ao mean P.8 mmHg MV V2 VTI: 40.0 cm Ao V2 VTI: 38.9 cm LV V1 max: 118.5 cm/sec PA V2 max: 77.3 cm/sec TR max sebastian: 242.0 cm/sec LV V1 max P.6 mmHg TR max P.4 mmHg LV V1 mean P.3 mmHg LV V1 mean: 86.4 cm/sec LV V1 VTI: 29.0 cm ECHO/Echo Complete Interpretation Summary The estimated ejection fraction is 65 %. Normal diastology for age. Ordering Physician: Graciela Cárdenas Referring Physician: Nohemi Cardoza M.D. Performed By: Tracey Caro RCS
[2021-12-27 18:30] LABS: Phosphorus 2.4 mg/dL (2.5-4.9)
[2021-12-27] MEDS: Bumetanide 0.5 MG Tablet 1 MG PO (20:38)
[2021-12-27] MEDS: Heparin Injection (Vial) 5,000 UNIT/ML VIAL 5000 UNIT SC (22:52)
[2021-12-27] MEDS: hydrALAZINE 50 MG Tablet PO (22:54)
[2021-12-27] MEDS: Atorvastatin Calcium 20 MG Tablet PO (22:54)
[2021-12-27] MEDS: Dicyclomine 10 MG Capsule PO (22:54)
[2021-12-28] VITALS (7 sets, daily range): BP systolic 133–147; BP diastolic 69–71; PULSE 72–81; RESP 18; TEMP 36.8–36.9; O2SAT 98–99; BMI 24.7
[2021-12-28] MEDS: Dicyclomine 10 MG Capsule PO (06:05)
[2021-12-28 07:21] LABS: Absolute Lymphocyte Count 0.85 X10^3/uL (0.83-4.51); Absolute Neutrophil Count 4.2 X10^3/uL (2.0-7.7); Basophil# 0.03 X10^3/uL; Basophil% 0.5 % (0-1); Eosinophil# 0.14 X10^3/uL; Eosinophils% 2.4 % (0-5); Hematocrit 29.4 % (37-47); Hemoglobin 10.1 g/dL (12.0-15.0); Lymphocyte # 0.85 X10^3/ul (0.83-4.51); Lymphocyte % 14.9 % (19-41); Mean Corp Hgb Conc 34.4 g/dL (32-36); Mean Corpuscular Hgb 31.9 pg (27.0-32.0); Mean Corpuscular Volume 92.7 fL (81-99); Mean Platelet Vol. 10.7 fl (6.2-12.0); Monocyte# 0.49 X10^3/uL; Monocyte% 8.6 % (0-10); NRBC Flagged by Analyzer 0 % (0-5); Neutrophil # 4.18 X10^3/uL (2.7-7.7); Neutrophil % 73.1 % (47-70); Platelet Count 175 K/mm3 (150-450); RBC Distribution Width CV 14.6 % (11.6-14.6); Red Blood Count 3.17 M/mm3 (4.2-5.4); White Blood Count 5.7 K/mm3 (4.4-11.0)
[2021-12-28 08:12] LABS: AST(SGOT) 12 U/L (15-37); Alanine Aminotransfer ALT/SGPT 13 U/L (13-56); Albumin, Serum 2.6 g/dL (3.2-5.0); Alkaline Phosphatase 71 U/L (45-117); Anion Gap 8 (5-15); BUN 16 mg/dL (7-18); BUN/Creat Ratio 5.3 RATIO (10-20); Calcium,Total 8.4 mg/dL (8.5-10.1); Chloride 98 mmol/L (98-107); Cholesterol 186 mg/dL (200); Creatinine, Serum 3.02 mg/dL (0.55-1.02); EST Glomerular Filtration Rate 16 mL/min (>60); Est Glom Filt Rate - Afr Amer 19 mL/min (>60); Globulin 2.7 g/dL (2.2-4.2); Glucose 92 mg/dL (74-106); High Density Lipoprotein 42 mg/dL; Potassium 3.2 mmol/L (3.5-5.1); Protein, Total 5.3 g/dL (6.4-8.2); Sodium Level 134 mmol/L (136-145); Thyroid Stim Hormone (TSH) 2.14 uIU/mL (0.358-3.74); Triglycerides 178 mg/dL; Very Low Density Lipoprotein 36 mg/dL (5-40)
[2021-12-28 08:25] LABS: Hemoglobin A1c < 3.8 % (3.8-5.6)
--- NOTE | 2021-12-28 09:00 | MRI_ITS ---
EXAM: MR HEAD WITHOUT INTRAVENOUS CONTRAST CLINICAL INDICATION: CVA TECHNIQUE: Multiplanar and multisequence MR images of the brain were obtained without intravenous contrast. This report was created using [email or web address] report generation technology. COMPARISON: CT head without contrast 01/06/2022. MRI brain without contrast 08/14/2020. FINDINGS: BRAIN AND EXTRA-AXIAL SPACES: No diffusion restriction to suspect acute or subacute ischemic infarct. T2 FLAIR hyperintensity foci in the white matter of both cerebral hemispheres are chronic white matter ischemic changes. No intra- or extra-axial hemorrhage. No intracranial mass or mass effect. Posterior fossa structures are unremarkable. Ventricles are appropriate for age. No hydrocephalus. Basal cisterns are patent. SELLA: Unremarkable. Normal sella turcica, pituitary gland, infundibular stalk, optic chiasm and hypothalamus. AUDITORY SYSTEM: Unremarkable. The internal auditory canals are patent. BONES/JOINTS: Unremarkable. No discrete lytic or blastic abnormalities. SINUSES: Unremarkable as visualized. Clear. MASTOID AIR CELLS: Unremarkable as visualized. Clear. ORBITS: Unremarkable as visualized. Both globes, extraocular muscles, optic nerves and retrobulbar fat appear unremarkable. VASCULATURE: Unremarkable as visualized. Normal flow voids in the major intracranial circulation. MRI/Brain without Contrast IMPRESSION: 1. No MRI evidence of acute or subacute ischemic infarct or acute intracranial abnormality. 2. Mild decrease in number and size of chronic white matter ischemic changes in both cerebral hemispheres when compared to 08/14/2020. Electronically Signed: David Ndiaye MD at 11:05 EDT ,
--- NOTE | 2021-12-28 09:00 | MRI_ITS ---
HISTORY: CVA. TECHNIQUE: Routine [place]/brain 3D time of flight MR angiogram protocol was performed. 3D reconstructions were reviewed. IV Contrast Dosage and Agent: None. 195 images. COMPARISON: 08/14/2020. FINDINGS: ICAs: No significant stenosis, occlusion, or aneurysm at the intracranial/visualized segments. ACAs: No significant stenosis at the visualized segments. Mild ectasia or tortuosity of the distal right A1 segment again seen. MCAs: No significant stenosis or vascular malformation at the visualized segments. retail coverage merchandiser: No significant stenosis, occlusion, or vascular malformation at the visualized segments. origins bilaterally. BASILAR ARTERY: No significant stenosis, occlusion, or aneurysm. VERTEBRAL ARTERIES: Patent visualized portion of the intracranial dominant left vertebral artery. Intracranial right vertebral artery again not visualized, likely terminating as PICA. MRI/MRA Head ONLY without Contrast IMPRESSION: No evidence for large vessel occlusion or significant stenosis in the [place] region. Electronically Signed: Suze Duque MD at 10:59 EDT ,
[2021-12-28] MEDS: amLODIPine 10 MG Tablet PO (09:50)
[2021-12-28] MEDS: Bumetanide 0.5 MG Tablet 1 MG PO (09:50)
[2021-12-28] MEDS: Potassium Chloride Oral Tablet 20 MEQ 40 MEQ PO (09:50)
[2021-12-28] MEDS: Aspirin 81 MG TAB.CHEW PO (09:50)
[2021-12-28] MEDS: Labetalol 200 MG Tablet 400 MG PO (09:50)
[2021-12-28] MEDS: Polyethylene Glycol 3350 17 GM PACKET PO (09:50)
[2021-12-28] MEDS: Psyllium 1 PACKET PO (09:50)
[2021-12-28] MEDS: Heparin Injection (Vial) 5,000 UNIT/ML VIAL 5000 UNIT SC (09:57)
[2021-12-28] MEDS: Pantoprazole Sodium 20 MG Tablet PO (12:18)
--- NOTE | 2021-12-28 14:29 | DS.PCM_ITS ---
Providers Date of Admission: 12/27/21 Date of Discharge: 12/28/21 Primary Care Physician: Dr. Nohemi Cardoza MD Reason For Visit: TIA Diagnosis Discharge Diagnosis (1) Brain TIA: Status: Acute Code(s): G45.9 - Transient cerebral ischemic attack, unspecified Medications at Discharge Home Medications tbherexhbt-lcrxligudkeuq-jvsbzteh 50 mg-325 mg-40 mg tablet 1 tab PO Q6H PRN Headache 09/17/20 fluticasone propionate 50 mcg/actuation nasal spray,suspension 1 spray intranasal DAILY PRN ALLERGIES 09/17/20 lansoprazole 15 mg capsule,delayed release 15 mg PO 1200 reflux 09/17/20 polyethylene glycol 3350 17 gram oral powder packet (Miralax) 17 g PO DAILY constipation 09/17/20 psyllium 1 packet PO DAILY constipation 09/17/20 acetaminophen 325 mg capsule (Tylenol) 325 mg PO ONCE PRN Pain 08/22/21 bumetanide 1 mg tablet 1 mg PO BID water pill 08/22/21 cholecalciferol (vitamin D3) 1,250 mcg (50,000 unit) capsule 1,250 mcg PO TAYLOR 08/22/21 cyanocobalamin (vitamin B-12) 1,000 mcg capsule 1,000 mcg PO DAILY 08/22/21 dicyclomine 10 mg capsule 10 mg PO TID bowels 08/22/21 labetalol 200 mg tablet 400 mg PO DAILY 08/22/21 avwancrl-jgieaa-KP-thonzonm 3.3 mg-3 mg-10 mg-0.5 mg/mL ear drops,susp (Cortisporin-TC) 1 applic otic (ear) Q4H PRN Ear Pain 08/22/21 amlodipine 10 mg tablet 10 mg PO DAILY BP 12/27/21 hydralazine 50 mg tablet 50 mg PO QHS SLEEP 12/27/21 Hospital Course Operations None Procedures 2-D Echocardiogram Summary of Care Provided Minutes Spent on Discharge: 36 Hospital Course: Patient is a 76-year-old female with past medical history as outlined was admitted via the ED where she was sent from urgent care for evaluation for stroke symptoms. Patient had been in the car on the day before admission when she started having severe headache and then had expressive aphasia. witnessed it. The headache subsequently resolved. He feels also subsequently resolved and she decided to come into the ED. She has ESRD and is on hemodialysis. She was admitted for TIA to rule out a stroke. CT of the brain done showed no acute intracranial pathology and MRI of the brain showed no evidence of stroke. Carotid duplex showed smooth plaque at the proximal right internal carotid artery with less than 50% stenosis and less than 50% stenosis of the right external carotid artery. She also had a small plaque at the proximal left internal carotid artery and less than 50% stenosis of the left external carotid artery and patent and antegrade vertebral arteries bilaterally. Patient's symptoms did not recur during this admission and she felt well. 2D echo showed EF of 65% with no regional wall motion abnormalities and normal diastolic for age. Patient's hospital course was uncomplicated and she felt. She was discharged home on 12/28/2021. She is to follow-up with her primary care doctor within 1 to 2 weeks. In light of her history of migraines and severe headache, I do suspect that her dysarthria must have been due to a migrainoid headache. Patient seen and examined prior to discharge. She had no active complaints and had an uneventful night. Review of systems otherwise negative. Labs and vitals reviewed. Home medication reviewed and reconciled. Physical Exam Const alert and oriented x3 General Appearance: cooperative and comfortable Orientation / Consciousness: awake Exam Limitations: no limitations HEENT normocephalic, head/scalp atraumatic, hearing grossly normal bilaterally and moist oral mucous membranes Mouth: oral and palatal mucosa normal Eyes PERRL, EOMs intact bilaterally and conjunctivae normal Neck no lymphadenopathy and supple Resp normal respiratory effort, no retractions, no use of accessory muscles and clear to auscultation bilaterally Cardio regular rate, regular rhythm, S1 normal heart sound, S2 normal heart sound and no murmurs GI normal to inspection, nondistended, normoactive bowel sounds, soft to palpation, non-tender and non-distended Extremity normal to inspection, full ROM and no clubbing, cyanosis or edema Skin no rashes or lesions noted Neuro oriented x3, CN's II-XII intact bilaterally, moves all extremities and no focal motor deficits Sensorium / Orientation: awake, alert and oriented to person Coordination / Balance: ncdsuy-cn-efin test normal Speech: speech normal Motor Exam: strength 5/5 throughout Psych affect normal Weight / BMI Weight Weight: 141 lb 5.061 oz Body Mass Index (BMI) 24.7 ABG / Lab / Microbiology Data Result Diagrams: 12/28/21 06:32 12/28/21 06:32 Laboratory: Laboratory Results - last 24 hr 12/27/21 16:26: WBC 6.2, RBC 3.60 L, Hgb 11.6 L, Hct 33.3 L, MCV 92.5, MCH 32.2 H, MCHC 34.8, RDW Std Deviation 46.0 H, RDW Coeff of Ricky 14.6, Plt Count 187, MPV 11.0, Immature Gran % (Auto) 0.300, Neut % (Auto) 73.0 H, Lymph % (Auto) 13.3 L, [place] % (Auto) 11.3 H, Eos % (Auto) 1.6, Baso % (Auto) 0.5, Absolute Neuts (auto) 4.5, Absolute Lymphs (auto) 0.82 L, Nucleated RBC % 0.3 12/27/21 16:26: PT 12.8, INR 1.0, APTT 30.6 12/27/21 16:26: Sodium 135 L, Potassium 3.6, Chloride 97 L, Carbon Dioxide 32.0, Anion Gap 6, BUN 13, Creatinine 2.38 H, Estim Creat Clear Calc 16.12, Est GFR (MDRD) Af Amer 25 L, Est GFR (MDRD) Non-Af 21 L, BUN/Creatinine Ratio 5.5 L, Glucose 107 H, Calcium 9.3, Troponin I High Sens 8 12/27/21 16:26: Phosphorus 2.4 L, Magnesium 2.0 12/28/21 06:32: WBC 5.7, RBC 3.17 L, Hgb 10.1 L, Hct 29.4 L, MCV 92.7, MCH 31.9, MCHC 34.4, RDW Std Deviation 46.0 H, RDW Coeff of Ricky 14.6, Plt Count 175, MPV 10.7, Immature Gran % (Auto) 0.500, Neut % (Auto) 73.1 H, Lymph % (Auto) 14.9 L, [place] % (Auto) 8.6, Eos % (Auto) 2.4, Baso % (Auto) 0.5, Absolute Neuts (auto) 4.2, Absolute Lymphs (auto) 0.85, Nucleated RBC % 0 12/28/21 06:32: Sodium 134 L, Potassium 3.2 L, Chloride 98, Carbon Dioxide 28.0, Anion Gap 8, BUN 16, Creatinine 3.02 H, Estim Creat Clear Calc 12.70, Est GFR (MDRD) Af Amer 19 L, Est GFR (MDRD) Non-Af 16 L, BUN/Creatinine Ratio 5.3 L, Glucose 92, Calcium 8.4 L, Total Bilirubin 0.50, AST 12 L, ALT 13, Alkaline Phosphatase 71, Total Protein 5.3 L, Albumin 2.6 L, Globulin 2.7, Albumin/Globulin Ratio 1.0, Triglycerides 178, Cholesterol 186, LDL Cholesterol 108, VLDL Cholesterol 36, HDL Cholesterol 42, TSH 2.14 12/28/21 06:32: Hemoglobin A1c < 3.8 L Radiography Diagnostic Testing: Radiology Impression Brain CT 12/27/21 16:21 IMPRESSION: No acute disease Electronically Signed: Pako Moody MD at 16:59 EDT Reading Location ID and State: [address] [place] [address] , Service support , ADDENDUM: 12/27/21 1710 IMPRESSION: No acute disease N.B. : The above Results were Read Back by Pako Moody MD to dr sally MD, and understanding confirmed on 12/27/2021 17:03:44 (ET). Electronically Signed: Pako Moody MD at 16:59 EDT Reading Location ID and State: [facility] / [place] , Service support , Chest X-Ray 12/27/21 16:44 IMPRESSION: No acute disease Electronically Signed: Pako Moody MD at 17:01 EDT , Carotid Duplex 12/27/21 18:18 Interpretation Summary Smooth plaque at the proximal right internal carotid artery with less than 50% stenosis Less than 50% stenosis right external carotid artery Smooth plaque at the proximal left internal carotid artery Less than 50% stenosis left external carotid artery Patent and antegrade vertebral arteries bilaterally Ordering Physician: Graciela Cárdenas Referring Physician: Nohemi Cardoza M.D. Performed By: Shanna Cervantes RVT Echocardiogram 12/27/21 18:18 Interpretation Summary The estimated ejection fraction is 65 %. Normal diastology for age. Ordering Physician: Graciela Cárdenas Referring Physician: Nohemi Cardoza M.D. Performed By: Tracey Caro RCS Brain MRI 12/28/21 09:00 IMPRESSION: 1. No MRI evidence of acute or subacute ischemic infarct or acute intracranial abnormality. 2. Mild decrease in number and size of chronic white matter ischemic changes in both cerebral hemispheres when compared to 08/14/2020. Electronically Signed: David Ndiaye MD at 11:05 EDT , Head MRA 12/28/21 09:00 IMPRESSION: No evidence for large vessel occlusion or significant stenosis in the [place] region. Electronically Signed: Suze Duque MD at 10:59 EDT , D/C Instructions Discharge Diet: Low fat / Low cholesterol Discharge Activity: Return to Normal Activity Call your doctor if you observe: Fever of 101 or Higher, Shortness of breath, Dizziness, Fainting spells, Swelling in the ankles and Chest pain Meaningful Use Info Meaningful Use Diagnoses (Choose all that apply): None applicable Discharge Plan Admission Admit Date/Time: 12/27/21 17:57 Primary Reason for Your Visit: dysarthria Attending Provider: Sarah Fraser Primary Care Provider: Nohemi Cardoza Consulting Providers: Graciela Cárdenas Instructions Patient Instructions: What Is Dysarthria, Dysarthria: Improving Speech, Treating Dysarthria Discharge Orders/Prescriptions Prescriptions: Continued labetalol 200 mg tablet 400 mg PO DAILY acetaminophen [Tylenol] 325 mg capsule 325 mg PO ONCE PRN (Reason: Pain) cyanocobalamin (vitamin B-12) 1,000 mcg capsule 1,000 mcg PO DAILY cholecalciferol (vitamin D3) 1,250 mcg (50,000 unit) capsule 1,250 mcg PO TAYLOR Cortisporin-TC 3.3-3-10-0.5 mg/mL drops,suspension 1 applic otic (ear) Q4H PRN (Reason: Ear Pain) Rx Instructions: apply to (cotton) wick; replace wick every 24 hours dicyclomine 10 mg capsule 10 mg PO TID polyethylene glycol 3350 [Miralax] 17 gram Powder In Packet 17 g PO DAILY psyllium Packet 1 packet PO DAILY mjpcqghysy-noibhmnuwengw-corw 50-325-40 mg Tablet 1 tab PO Q6H PRN (Reason: Headache) lansoprazole 15 mg Capsule,Delayed Release(Dr/Ec) 15 mg PO 1200 fluticasone propionate 50 mcg/actuation [place],Suspension 1 spray INTRANASAL DAILY PRN (Reason: ALLERGIES) bumetanide 1 mg tablet 1 mg PO BID hydralazine 50 mg tablet 50 mg PO QHS Label Comments: take 1 tablet by mouth once daily amlodipine 10 mg tablet 10 mg PO DAILY Referrals / Follow Up: Nohemi Cardoza MD [Primary Care Provider] - Within 2 Weeks Disposition Disposition (needs filled in before D/C Order can be placed): Home, Self Care Charges/Coding Visit Charges OBSV E&M: 57793 Observation care discharge
--- NOTE | 2021-12-28 14:40 | CASEMGMT ---
SW went to patient's room to complete a PHQ9 as she may have had a TIA. However, patient was sleeping. SW will check back as able. Kiki POTTER
--- NOTE | 2021-12-28 15:20 | CASEMGMT ---
SW completed a PHQ9 with patient as she may have had a TIA. Patient scored a 0 which indicates no depression. Patient denies any need for counseling. Kiki POTTER
== END 2021-12-28 14:48 | disposition home or self-care (01) ==
LOC: ED 17:31 → PCU 17:45
PROVIDERS: Admitting Provider Family Medicine; Emergency Provider Emergency Medicine; PCP Internal Medicine; Visit Provider Student in an Organized Health Care Education/Training Program
DX: G45.9 Transient cerebral ischemic attack, unspecified (principal); Z99.2 Dependence on renal dialysis; I12.0 Hypertensive chronic kidney disease with stage 5 chronic kidney disease or end stage renal disease; N18.6 End stage renal disease; E78.00 Pure hypercholesterolemia, unspecified; K21.9 Gastro-esophageal reflux disease without esophagitis; R47.01 Aphasia; K58.9 Irritable bowel syndrome, unspecified; G62.9 Polyneuropathy, unspecified; D63.8 Anemia in other chronic diseases classified elsewhere; Z79.899 Other long term (current) drug therapy; G43.909 Migraine, unspecified, not intractable, without status migrainosus
CPT/HCPCS: 36415; 70450; 70544; 70551; 71045; 80048; 80053; 80061; 83036; 83735; 84100; 84443; 84484; 85025; 85610; 85730; 92523; 93005; 93306; 93880; 96372; 97161; 97166; 97802; 99218; 99285; Q9957; A4216; G0378

== ENCOUNTER → 2022-01-05 | Outpatient (CLI) | payer MEDICARE, SELFPAY ==
--- NOTE | 2022-01-05 12:05 | RAD_ITS ---
STUDY: X-RAY CHEST REASON FOR EXAM: Female, 76 years old. Port placement. TECHNIQUE: PA and lateral views of the chest. COMPARISON: Comparison is made with prior study dated 12/27/2021. FINDINGS: A right-sided dialysis catheter is seen. The tip is at the junction of the superior vena cava and right atrium. There has been no change. The lungs are clear and expanded. There is no demonstrated pleural abnormality. Normal size heart. Normal mediastinum and victor m. Normal visualized pulmonary arteries. There is atherosclerotic calcification of the aortic arch with tortuosity. There are diffuse degenerative changes of the visualized thoracic spine. Normal visualized ribs, clavicles, and shoulders. There is no demonstrated abnormality of the visualized soft tissue structures of the upper abdomen. RAD/Chest PA and Lateral IMPRESSION: Stable examination. Electronically Signed: Buddy Dela Cruz MD at 12:41 EDT ,
== END | disposition home or self-care (01) ==
PROVIDERS: PCP Internal Medicine; Referring Provider Surgery; Visit Provider Surgery
DX: T82.590D Other mechanical complication of surgically created arteriovenous fistula, subsequent encounter (principal)
CPT/HCPCS: 71046

== ENCOUNTER 2022-08-06 11:28 | Emergency (ER) | payer MEDICARE, SELFPAY ==
[2022-08-06 11:33] VITALS: BP 190/83; PULSE 80; RESP 17; TEMP 37.7; O2SAT 99; BMI 28.0
--- NOTE | 2022-08-06 11:50 | EKG12_ITS ---
Test Reason : Blood Pressure : / mmHG Vent. Rate : 082 BPM Atrial Rate : 082 BPM P-R Int : 138 ms QRS Dur : 078 ms QT Int : 374 ms P-R-T Axes : 061 004 018 degrees QTc Int : 436 ms Normal sinus rhythm Nonspecific ST abnormality Abnormal ECG Confirmed by MOMO SUNG, SANDRA ([id number]), editorial intern PRASANNA SINGLETON ([id number]) on 08/07/2022 8:41:36 AM Referred By: GISELL Confirmed By:SANDRA BARR MD
--- NOTE | 2022-08-06 11:50 | RAD_ITS ---
STUDY: X-RAY CHEST REASON FOR EXAM: Female, 77 years old. Shortness of breath TECHNIQUE: Single AP portable view of the chest. COMPARISON: Comparison is made with prior study January 05, 2022. FINDINGS: EKG electrodes are seen. A right-sided double lumen catheter is seen with the tip at the junction of the superior vena cava and right atrium. The lungs are clear and expanded. There is no demonstrated pleural abnormality. Normal size heart. Normal mediastinum and victor m. Normal visualized pulmonary arteries. There is atherosclerotic calcification of the aortic arch with tortuosity. There are diffuse degenerative changes of the visualized thoracic spine. Normal visualized ribs, clavicles, and shoulders. There is no demonstrated abnormality of the visualized soft tissue structures of the upper abdomen. RAD/Chest 1 View (Portable) IMPRESSION: Stable examination. No acute abnormality is seen. Electronically Signed: Buddy Dela Cruz MD at 13:09 EDT ,
[2022-08-06 12:06] LABS: Hematocrit 29.5 % (37-47); Hemoglobin 10.1 g/dL (12.0-15.0); Mean Corp Hgb Conc 34.2 g/dL (32-36); Mean Corpuscular Hgb 33.1 pg (27.0-32.0); Mean Corpuscular Volume 96.7 fL (81-99); Mean Platelet Vol. 11.6 fl (6.2-12.0); Platelet Count 136 K/mm3 (150-450); RBC Distribution Width CV 13.5 % (11.6-14.6); RBC Distribution Width SD 48.5 fl (35.1-43.9); Red Blood Count 3.05 M/mm3 (4.2-5.4)
[2022-08-06 12:29] LABS: AST(SGOT) 47 U/L (15-37); Alanine Aminotransfer ALT/SGPT 19 U/L (13-56); Albumin, Serum 2.6 g/dL (3.2-5.0); Alkaline Phosphatase 97 U/L (45-117); Anion Gap 8 (5-15); BUN 25 mg/dL (7-18); CPK Total, Creatine Kinase 587 U/L (26-192); Calcium,Total 8.4 mg/dL (8.5-10.1); Chloride 104 mmol/L (98-107); Creatinine, Serum 4.15 mg/dL (0.55-1.02); EST Glomerular Filtration Rate 11 mL/min (>60); Est Glom Filt Rate - Afr Amer 13 mL/min (>60); Estimated Creatinine Clearance 9.49 ml/min; Globulin 2.7 g/dL (2.2-4.2); Glucose 88 mg/dL (74-106); Potassium 3.7 mmol/L (3.5-5.1); Protein, Total 5.3 g/dL (6.4-8.2); Sodium Level 136 mmol/L (136-145)
[2022-08-06 13:38] VITALS: BP 185/87; PULSE 82; RESP 24; TEMP 38.5; O2SAT 96
[2022-08-06 13:43] LABS: Mucous, Urine 0 SEEN /hpf (<or=2+)
[2022-08-06 13:49] LABS: Color, Urine Yellow (Yellow); Glucose, Dipstick Normal (Normal); Ketone-Dipstick 15 mg/dl (Negative); Leukocyte Esterase-Dipstick 25 /ul (Negative); Nitrite-Dipstick Negative (Negative); Occult Blood-Urine 250 /ul (Negative); Protein-Dipstick 100 mg/dl (Negative); Urine Bilirubin Dipstick Negative (Negative); Urine Clarity Sl. Cloudy (Clear); Urine Urobilinogen Normal (Normal)
[2022-08-06 14:00] LABS: Bacteria 3+ /hpf (None Seen); Red Blood Cells-Urine 25-50 SEEN /hpf (0-5); Squamous Epithelial Cells - UA 0-5 SEEN /hpf (5-10); White Blood Cells 0-5 SEEN /hpf (0-5)
[2022-08-06] MEDS: Acetaminophen 325 MG Tablet 650 MG PO (14:03)
[2022-08-06 14:11] VITALS: O2SAT 97
--- NOTE | 2022-08-06 14:23 | EDS_ITS ---
HPI History of Present Illness Chief Complaint: Weakness Narrative Narrative: 77-year-old female past medical history of end-stage renal disease, hypertension, presents via EMS for generalized weakness. She states that her dialysis center had called to do a well check on her. She has missed her dialysis that she usually receives Saturday, Saturday, and Saturday. She states that she did not go to dialysis on Saturday, 4 days ago, because her had a high fever and a cough and she did not want to leave him alone. Additionally, she missed today because she was too weak to go. She states that they are doing remodeling at her home she was too weak to get up the stairs so she slept on the floor with plenty of blankets. She denies falling or hitting of her head and states she purposely slept on the floor because she was weak. [facility] Medical History Ambulates with cane Anxiety Back pain Cholecystectomy planned CKD (chronic kidney disease) stage 4, GFR 15-29 ml/min Depression Easy bruising ESRD on hemodialysis Ganglion cyst of dorsum of right wrist Gastric reflux High cholesterol History of cyst of breast History of echocardiogram History of edema History of hiatal hernia History of IBS History of renal dialysis HTN (hypertension) Kidney disease Kidney stones Leg cramps Loss of hearing Low iron Migraines Non-smoker Non-smoker Polio Tremor Home Medications znsakxojlj-rvvlokxojonma-srnxmbdp 50 mg-325 mg-40 mg tablet 1 tab PO Q6H PRN Headache 09/17/20 [History Last Taken Unknown] fluticasone propionate 50 mcg/actuation nasal spray,suspension 1 spray intranasal DAILY PRN ALLERGIES 09/17/20 [History Last Taken Unknown] lansoprazole 15 mg capsule,delayed release 15 mg PO 1200 reflux 09/17/20 [History Last Taken Unknown] polyethylene glycol 3350 17 gram oral powder packet (Miralax) 17 g PO DAILY constipation 09/17/20 [History Last Taken 12/26/21] psyllium 1 packet PO DAILY constipation 09/17/20 [History Last Taken 12/26/21] acetaminophen 325 mg capsule (Tylenol) 325 mg PO ONCE PRN Pain 08/22/21 [History Last Taken 12/27/21 04:30] bumetanide 1 mg tablet 1 mg PO BID water pill 08/22/21 [History Last Taken 12/26/21] cholecalciferol (vitamin D3) 1,250 mcg (50,000 unit) capsule 1,250 mcg PO TAYLOR 08/22/21 [History Last Taken 12/24/21] cyanocobalamin (vitamin B-12) 1,000 mcg capsule 1,000 mcg PO DAILY 08/22/21 [History Last Taken 12/27/21 04:30] dicyclomine 10 mg capsule 10 mg PO TID bowels 08/22/21 [History Last Taken 12/27/21 04:30] labetalol 200 mg tablet 400 mg PO DAILY 08/22/21 [History Last Taken 12/27/21 04:30] qtqueurt-unwyui-WQ-thonzonm 3.3 mg-3 mg-10 mg-0.5 mg/mL ear drops,susp (Cortisporin-TC) 1 applic otic (ear) Q4H PRN Ear Pain 08/22/21 [History Last Taken 1 Week Ago ~12/20/21] amlodipine 10 mg tablet 10 mg PO DAILY BP 12/27/21 [History Last Taken 12/27/21 04:30] hydralazine 50 mg tablet 50 mg PO QHS SLEEP 12/27/21 [History Last Taken 12/26/21] Allergy/AdvReac Type Severity Reaction Status Date / Time codeine Allergy Nausea Verified 08/06/22 11:38 adhesive tape AdvReac Rash Verified 08/06/22 11:38 Opioids - Morphine Analogues AdvReac Upset Verified 08/06/22 11:38 [narcotics] Stomach Family History Father Heart disease Hypertension High cholesterol Mother Heart disease Hypertension PAF (paroxysmal atrial fibrillation) Other CVA (cerebral vascular accident) Surgical History H/O: hysterectomy History of cholecystectomy History of insertion of tunneled central venous catheter (CVC) with port History of tonsillectomy and adenoidectomy Hx of appendectomy Hx of colonoscopy Social History household members: spouse Smoking Status: Never smoker alcohol intake: never substance use type: does not use ROS ROS ED ROS Narrative Constitutional: No fever, no chills. Generalized weakness. HEENT: No sore throat. No neck pain. No loss of vision. No rhinorrhea. Bilateral ear pain. Cardiovascular: No chest pain. No palpitations. No pedal edema. Respiratory: No cough, no shortness of breath. Abdominal: No abdominal pain. No nausea. No vomiting. Genitourinary: No dysuria. No hematuria. She does make urine although she is on dialysis. Musculoskeletal: No myalgias. No arthralgias. Neurologic: No headaches. No dizziness. No lightheadedness. Skin: No rash. No change in color. Psychiatric: No depression. No anxiety. EXAM Physical Exam Narrative Exam Narrative: Afebrile. Vital signs noted. HEENT: Normocephalic. Atraumatic. PERRL, EOMI. Neck soft and supple. No point tenderness or step off. TMs without erythema bilaterally. No mastoid tenderness or erythema. Cardiovascular: Regular rate and rhythm. No murmurs, rubs, or gallops appreciated. Respiratory: No tachypnea. Lungs clear to auscultation bilaterally. Gastrointestinal: Abdomen soft, nontender, with normoactive bowel sounds. No rebound or guarding. Neurological: Awake. Alert. Nonfocal, nonlateralizing. Skin: No rash. Normal color. No pallor. Musculoskeletal: No pedal edema. Full range of motion extremities. Const Vital Signs: 08/06/22 11:33 08/06/22 11:38 08/06/22 13:38 Temperature 99.8 F H 101.3 F H Temperature Source Oral Oral Pulse Rate 80 82 Respiratory Rate 17 24 H Respiratory Effort Normal Respiratory Pattern Normal Blood Pressure 190/83 H 185/87 H Blood Pressure Mean 118 119 Pulse Ox 99 96 Oxygen Delivery Method Room Air Room Air MDM MDM MDM Narrative Medical decision making narrative: For generalized weakness concern is for urinary tract infection or pneumonia. Comprehensive work-up was pursued. Patient ended up spiking a fever of 101.3 ?F. Pulse ox ranges from 96 to 99% on room air. I reviewed her laboratory work, she has a neutropenia of 4.0 with hemoglobin stable at 10.1, hematocrit 29.5, platelet count low at 136. In review of her CMP, for missing dialysis since Saturday of last week, she has a normal sodium of 136, potassium 3.7, chloride of 104, carbon dioxide of 24. Anion gap is normal at 8. BUN is elevated at 25 with a creatinine of 4.15 consistent with end-stage renal disease. Glucose is normal at 88. Urinalysis is negative for nitrites, and 0-5 WBCs. This was sent for culture. She is not having dysuria so I do not feel that antibiotics are indicated. Rather, I think her elevation in temperature is secondary to her positive COVID swab. Chest x-ray interpreted by myself shows no evidence of pneumonia. At this point in time, although her CK is slightly elevated above 500, I am reluctant to give her a large amount of fluid as she has missed dialysis for the last 2 times. She was able to ambulate with a walker and does not feel weak. I addressed with her being admitted for weakness with possible placement in a [place] [facility], but she declined. As she has normal electrolytes currently especially potassium, I will discuss the patient with nephrology to see if she can wait until Saturday for dialysis. Currently, although she is COVID-positive, she is not hypoxic and does not meet any admission criteria. She feels like she would like to go home. I discussed the patient with nephrology. They state that she can either go to dialysis this evening or early tomorrow morning at 550. Patient states she did not want to go tonight, and I stressed the importance of attending tomorrow morning as she should not miss another dialysis session. Additionally, I did have social work see her, and she does not want to be admitted to the hospital, and she does not want to be admitted anywhere for rehab. She is insistent on going home. At this point in time, I do feel she be discharged safely home to complete her dialysis. She will continue to care for herself with her diagnosis of COVID-19. Return instructions to the emergency department were reviewed. I do not feel that she meets any admission criteria currently. Disposition is discharged home in stable condition. History & Record Review Discussion w/independent historian: Patient and Family Additional record(s) reviewed:: Prior ED visit Lab Data Attestation: I reviewed the patient's lab results. Labs: Laboratory Results - last 24 hr 08/06/22 08/06/22 08/06/22 11:40 11:40 13:37 WBC 4.0 L RBC 3.05 L Hgb 10.1 L Hct 29.5 L MCV 96.7 MCH 33.1 H MCHC 34.2 RDW Std Deviation 48.5 H RDW Coeff of Ricky 13.5 Plt Count 136 L MPV 11.6 Sodium 136 Potassium 3.7 Chloride 104 Carbon Dioxide 24.0 Anion Gap 8 BUN 25 H Creatinine 4.15 H Estim Creat Clear Calc 9.49 Est GFR (MDRD) Af Amer 13 L Est GFR (MDRD) Non-Af 11 L BUN/Creatinine Ratio 6.0 L Glucose 88 Calcium 8.4 L Total Bilirubin 0.40 AST 47 H ALT 19 Alkaline Phosphatase 97 Total Creatine Kinase 587 H Total Protein 5.3 L Albumin 2.6 L Globulin 2.7 Albumin/Globulin Ratio 1.0 Urine Color Yellow Urine Clarity Sl. Cloudy Urine pH 6.0 Ur Specific Fifty [place] 1.020 Urine Protein 100 H Urine Glucose (UA) Normal Urine Ketones 15 H Urine Occult Blood 250 H Urine Nitrite Negative Urine Bilirubin Negative Urine Urobilinogen Normal Ur Leukocyte Esterase 25 H Urine RBC 25-50 SEEN Urine WBC 0-5 SEEN Ur Squamous Epith Cells 0-5 SEEN Urine Bacteria 3+ Urine Mucus 0 SEEN Radiography Diagnostic Testing: Clinical Impression(s) from Imaging Studies Chest X-Ray 08/06/22 11:50 IMPRESSION: Stable examination. No acute abnormality is seen. Electronically Signed: Buddy Dela Cruz MD at 13:09 EDT Reading Location ID and State: [id number] / [place] , Service support , Discharge Plan Triage Chief Complaint: Weakness ED Provider: David Ruvalcaba Dx/Rx/DC Orders Clinical Impression: COVID, Generalized weakness, Elevated CK, Acute hemodialysis patient Prescriptions: No Action labetalol 200 mg tablet 400 mg PO DAILY acetaminophen [Tylenol] 325 mg capsule 325 mg PO ONCE PRN (Reason: Pain) cyanocobalamin (vitamin B-12) 1,000 mcg capsule 1,000 mcg PO DAILY cholecalciferol (vitamin D3) 1,250 mcg (50,000 unit) capsule 1,250 mcg PO TAYLOR Cortisporin-TC 3.3-3-10-0.5 mg/mL drops,suspension 1 applic otic (ear) Q4H PRN (Reason: Ear Pain) Rx Instructions: apply to (cotton) wick; replace wick every 24 hours dicyclomine 10 mg capsule 10 mg PO TID polyethylene glycol 3350 [Miralax] 17 gram Powder In Packet 17 g PO DAILY psyllium Packet 1 packet PO DAILY hzdioootxl-jgdcpuevmxmwc-satk 50-325-40 mg Tablet 1 tab PO Q6H PRN (Reason: Headache) lansoprazole 15 mg Capsule,Delayed Release(Dr/Ec) 15 mg PO 1200 fluticasone propionate 50 mcg/actuation [place],Suspension 1 spray INTRANASAL DAILY PRN (Reason: ALLERGIES) bumetanide 1 mg tablet 1 mg PO BID hydralazine 50 mg tablet 50 mg PO QHS Label Comments: take 1 tablet by mouth once daily amlodipine 10 mg tablet 10 mg PO DAILY Primary Care Provider: Nohemi Cardoza Referrals: Nohemi Cardoza MD [Primary Care Provider] - Activity Restrictions/Additional Instructions: Go to dialysis tomorrow. You have to go at 5:50 in the morning. Disposition Disposition: Home, Self Care
[2022-08-06 15:01] VITALS: BP 166/73; PULSE 80; RESP 26; TEMP 37.3; O2SAT 98
--- NOTE | 2022-08-06 16:00 | CM.ED ---
Social Work Note Referral Source: DAXA Rashid Referral Reason: social concerns DAXA Rashid met with DENNISE and reviewed patient's symptoms and current concerns. RN explained the patient missed her dialysis appointments on Saturday and Saturday, so the dialysis agency had requested a well fair check. Patient was found to be sleeping on the floor and reports she was update to walk upstairs. Patient's had also disclosed to the RN that there were witches and warlocks in the home moving their clothes and other personal belongings. Patient also reports there was a couch but it is in a room that is under construction and therefore not accessible, however, patient's neighbor who brought patient's into the ED denies any home renovations. Patient and patient's had also voiced to the RN that they are private people and do not like others in their home. DENNISE met with MD Ruvalcaba to review concerns. reports the patient is positive for covid and patient had reported her had a fever on Saturday which is why she missed her dialysis appointment. Patient will be discharged home with follow up to dialysis. DENNISE met with patient and patient's and introduced herself and role as [facility] Material Handler Floorperson. Patient was in agreement to speak to SW with her present. SW inquired about recent events and patient's current needs. Patient reports her legs have been increasingly weak due to dialysis. Patient explained she uses a cane and her 's arm for security but has a walker available in the home. Patient reports her home has three levels but she does not go into the basement. Patient explained her bedroom is on the second floor of the home. Patient explained she was unable to walk upstairs last night with her husbands assistance so she slept downstairs. Patient reports they have a couch and two big chairs, however, they were getting the furniture cleaned and repaired so she was unable to use them to sleep on. Patient reports no current service provides and declined resources for service providers explaining she and her are private people and don't like people in their home. Patient reports she currently goes to [facility] Saturday, Saturday and Saturday with the assistance of her . Patient reports no recent stressors or changes at home. SW encouraged patient to return to ED if her symptoms worsen and explained agencies that could provide patient with assistance from home. Patient again declined referrals or resources for home care services. No other needs voiced at this time. DENNISE updated MD and RN of conversation and plan to contact [facility] with a referral for the patient. DENNISE contacted Solomon with [facility] and provided demographic information as well as reviewed concerns regarding patient's living situation. DENNISE explained the patient was positive for covid and discharged home with no services as patient declined due to her and her being private people. Solomon reports she will contact the patient via phone and try to provide further assistance. Anabel Champagne MSW, ABBEY
== END 2022-08-06 15:30 | disposition home or self-care (01) ==
PROVIDERS: Emergency Provider Emergency Medicine; PCP Internal Medicine; Visit Provider Emergency Medicine
DX: R53.1 Weakness (principal); Z99.2 Dependence on renal dialysis; N18.6 End stage renal disease; I12.0 Hypertensive chronic kidney disease with stage 5 chronic kidney disease or end stage renal disease; U07.1 COVID-19; G43.909 Migraine, unspecified, not intractable, without status migrainosus; Z79.899 Other long term (current) drug therapy; K21.9 Gastro-esophageal reflux disease without esophagitis
CPT/HCPCS: 99285; 71045; 80053; 81001; 82550; 85027; 87428; 93005; A4216

== ENCOUNTER 2022-08-07 07:42 | Observation (INO) | payer MEDICARE, SELFPAY ==
[2022-08-07] VITALS (8 sets, daily range): BP systolic 121–187; BP diastolic 83–94; PULSE 73–101; RESP 18–20; TEMP 36.6–37.9; O2SAT 96–100; BMI 27.3; BMI 25.5
--- NOTE | 2022-08-07 07:55 | EDS_ITS ---
HPI History of Present Illness Chief Complaint: Weakness Narrative Narrative: Patient presents with generalized weakness. She was seen yesterday for similar symptoms she had a fever and she had positive COVID, however she did not want to be hospitalized as it was offered to her. She has positive COVID and she has had progressive weakness she has also missed dialysis for about a week now but had normal electrolytes yesterday. She did not fall she tried to stand up and was too weak. Yesterday she had some weakness but it improved and she was able to ambulate and was insistent on going home. [facility] Medical History Ambulates with cane Anxiety Back pain Cholecystectomy planned CKD (chronic kidney disease) stage 4, GFR 15-29 ml/min Depression Easy bruising ESRD on hemodialysis Ganglion cyst of dorsum of right wrist Gastric reflux High cholesterol History of cyst of breast History of echocardiogram History of edema History of hiatal hernia History of IBS History of renal dialysis HTN (hypertension) Kidney disease Kidney stones Leg cramps Loss of hearing Low iron Migraines Non-smoker Non-smoker Polio Tremor Home Medications mlhocqxwdr-xllikghcpltpy-ymbxhfyx 50 mg-325 mg-40 mg tablet 1 tab PO Q6H PRN Headache 09/17/20 [History Last Taken Unknown] fluticasone propionate 50 mcg/actuation nasal spray,suspension 1 spray intranasal DAILY PRN ALLERGIES 09/17/20 [History Last Taken Unknown] lansoprazole 15 mg capsule,delayed release 15 mg PO 1200 reflux 09/17/20 [History Last Taken Unknown] polyethylene glycol 3350 17 gram oral powder packet (Miralax) 17 g PO DAILY constipation 09/17/20 [History Last Taken 12/26/21] psyllium 1 packet PO DAILY constipation 09/17/20 [History Last Taken 12/26/21] acetaminophen 325 mg capsule (Tylenol) 325 mg PO ONCE PRN Pain 08/22/21 [History Last Taken 12/27/21 04:30] bumetanide 1 mg tablet 1 mg PO BID water pill 08/22/21 [History Last Taken 12/26/21] cholecalciferol (vitamin D3) 1,250 mcg (50,000 unit) capsule 1,250 mcg PO TAYLOR 08/22/21 [History Last Taken 12/24/21] cyanocobalamin (vitamin B-12) 1,000 mcg capsule 1,000 mcg PO DAILY 08/22/21 [History Last Taken 12/27/21 04:30] dicyclomine 10 mg capsule 10 mg PO TID bowels 08/22/21 [History Last Taken 12/27/21 04:30] labetalol 200 mg tablet 400 mg PO DAILY 08/22/21 [History Last Taken 12/27/21 04:30] xuiaphjk-ccvoad-ZQ-thonzonm 3.3 mg-3 mg-10 mg-0.5 mg/mL ear drops,susp (Cortisporin-TC) 1 applic otic (ear) Q4H PRN Ear Pain 08/22/21 [History Last Taken 1 Week Ago ~12/20/21] amlodipine 10 mg tablet 10 mg PO DAILY BP 12/27/21 [History Last Taken 12/27/21 04:30] hydralazine 50 mg tablet 50 mg PO QHS SLEEP 12/27/21 [History Last Taken 12/26/21] Allergy/AdvReac Type Severity Reaction Status Date / Time codeine Allergy Nausea Verified 08/07/22 07:45 adhesive tape AdvReac Rash Verified 08/07/22 07:45 Opioids - Morphine Analogues AdvReac Upset Verified 08/07/22 07:45 [narcotics] Stomach Family History Father Heart disease Hypertension High cholesterol Mother Heart disease Hypertension PAF (paroxysmal atrial fibrillation) Other CVA (cerebral vascular accident) Surgical History H/O: hysterectomy History of cholecystectomy History of insertion of tunneled central venous catheter (CVC) with port History of tonsillectomy and adenoidectomy Hx of appendectomy Hx of colonoscopy Social History household members: spouse Smoking Status: Never smoker alcohol intake: never substance use type: does not use ROS ROS ED ROS Narrative Past medical history: Reviewed, includes end-stage renal disease on dialysis, hypertension, she is COVID-positive. Medications: Reviewed Social history: Lives at home with Review of systems: All systems negative except as indicated General: Generalized weakness she has had an intermittent fever. Eyes: No visual changes ENT: No upper airway congestion, normal voice Neck: No neck pain Cardiovascular: No chest pain Respiratory: No shortness of breath or cough Gastrointestinal: No abdominal pain, nausea vomiting or diarrhea Genitourinary: No dysuria, she still makes urine Musculoskeletal: No myalgias but generalized weakness in both arms and legs Skin: No rash Neurological: No memory loss, confusion or any focal weakness EXAM Physical Exam Narrative Exam Narrative: Physical exam General: Patient does not appear in distress she appears relatively comfortable she does not appear ill. No signs of trauma. Head: Normocephalic, Atraumatic Eyes: Conjunctiva not pale ENT: Moist mucous membranes no signs of dehydration. Neck: Supple, Nontender, No lymphadenopathy Cardiovascular: Regular rate, Regular rhythm Respiratory: No distress, CTA bilaterally Abdomen: Soft, Nontender, Nondistended : Normal external genitalia I was there doing the straight catheterization by nurse Back: Nontender, Normal Inspection. Negative for: CVA tenderness Extremities: Nontender, No edema Skin: Normal color, No rash Neurological: Alert, Normal Strength equal strength bilaterally, Normal Sensation Const Vital Signs: 08/07/22 07:50 08/07/22 07:55 08/07/22 08:52 Temperature 100.3 F H 100.3 F H Temperature Source Temporal Temporal Pulse Rate 91 101 H Respiratory Rate 20 H 20 H Respiratory Effort Normal Non-Labored Blood Pressure 185/94 H 185/94 H Blood Pressure Mean 124 124 Pulse Ox 98 98 Oxygen Delivery Method Room Air Room Air MDM MDM MDM Narrative Medical decision making narrative: A. Problems addressed Patient has history of end-stage renal disease, she has missed dialysis now for about a week, she does need dialysis however it does not have to be emergent. She will be hospitalized and can get dialysis inpatient. She has COVID which is likely causing her weakness. There is no evidence of UTI on a straight cath specimen. There is some blood. Because of her weakness I will admit her. CK is slightly higher than yesterday again I am reluctant to give him too many fluids especially that she has not had dialysis in over a week. B. Amount and/or complexity of the data 1. Labs were ordered by me and interpreted by me 2. Independent interpretation of test Telemetry: Sinus rhythm with PACs as interpreted by me 3. I discussed the patient with hospitalist who will admit. C. Risk of complications and/or morbidity Differential diagnosis: See above Lab Data Labs: Laboratory Results - last 24 hr 08/07/22 08/07/22 08/07/22 07:50 08:05 08:05 WBC 3.0 L RBC 3.22 L Hgb 10.7 L Hct 30.5 L MCV 94.7 MCH 33.2 H MCHC 35.1 RDW Std Deviation 46.7 H RDW Coeff of Ricky 13.4 Plt Count 117 L MPV 11.3 Immature Gran % (Auto) 0.300 Neut % (Auto) 77.5 H Lymph % (Auto) 11.4 L [place] % (Auto) 10.1 H Eos % (Auto) 0.0 Baso % (Auto) 0.7 Absolute Neuts (auto) 2.3 Absolute Lymphs (auto) 0.34 L Nucleated RBC % 0 Differential Comment SCANNED Diff Path Review May foll Sodium 135 L Potassium 4.0 Chloride 105 Carbon Dioxide 20.0 L Anion Gap 10 BUN 27 H Creatinine 4.21 H Estim Creat Clear Calc 9.36 Est GFR (MDRD) Af Amer 13 L Est GFR (MDRD) Non-Af 11 L BUN/Creatinine Ratio 6.4 L Glucose 81 Calcium 8.1 L Total Bilirubin 0.40 AST 102 H ALT 30 Alkaline Phosphatase 94 Total Creatine Kinase 1214 H Troponin I High Sens 105 H Total Protein 5.1 L Albumin 2.3 L Globulin 2.8 Albumin/Globulin Ratio 0.8 L Urine Color Yellow Urine Clarity Sl. Cloudy Urine pH 6.0 Ur Specific [place] 1.020 Urine Protein 100 H Urine Glucose (UA) Normal Urine Ketones 15 H Urine Occult Blood 250 H Urine Nitrite Negative Urine Bilirubin Negative Urine Urobilinogen Normal Ur Leukocyte Esterase 25 H Urine RBC 25-50 SEEN Urine WBC 0-5 SEEN Ur Squamous Epith Cells 0 SEEN Urine Bacteria 3+ Urine Mucus 0 SEEN EKG Initial EKG: Comments: Sinus rhythm with a rate of 86. Normal AK and QTc intervals. Nonspecific ST changes throughout. Unchanged from prior EKG Interpreted by emergency doctor Discharge Plan Triage Chief Complaint: Weakness ED Provider: Roshan Lawler Dx/Rx/DC Orders Clinical Impression: CKD (chronic kidney disease) stage 4, GFR 15-29 ml/min, COVID, Generalized weakness, Elevated CK, Weakness Prescriptions: No Action labetalol 200 mg tablet 400 mg PO DAILY acetaminophen [Tylenol] 325 mg capsule 325 mg PO ONCE PRN (Reason: Pain) cyanocobalamin (vitamin B-12) 1,000 mcg capsule 1,000 mcg PO DAILY cholecalciferol (vitamin D3) 1,250 mcg (50,000 unit) capsule 1,250 mcg PO TAYLOR Cortisporin-TC 3.3-3-10-0.5 mg/mL drops,suspension 1 applic otic (ear) Q4H PRN (Reason: Ear Pain) Rx Instructions: apply to (cotton) wick; replace wick every 24 hours dicyclomine 10 mg capsule 10 mg PO TID polyethylene glycol 3350 [Miralax] 17 gram Powder In Packet 17 g PO DAILY psyllium Packet 1 packet PO DAILY qrtokqcfjs-brwtsbcltfdmn-goqa 50-325-40 mg Tablet 1 tab PO Q6H PRN (Reason: Headache) lansoprazole 15 mg Capsule,Delayed Release(Dr/Ec) 15 mg PO 1200 fluticasone propionate 50 mcg/actuation [place],Suspension 1 spray INTRANASAL DAILY PRN (Reason: ALLERGIES) bumetanide 1 mg tablet 1 mg PO BID hydralazine 50 mg tablet 50 mg PO QHS Label Comments: take 1 tablet by mouth once daily amlodipine 10 mg tablet 10 mg PO DAILY Primary Care Provider: Nohemi Cardoza Referrals: Nohemi Cardoza MD [Primary Care Provider] - Disposition Disposition: Acute Care [facility]
[2022-08-07 08:04] LABS: Mucous, Urine 0 SEEN /hpf (<or=2+); Squamous Epithelial Cells - UA 0 SEEN /hpf (5-10)
[2022-08-07 08:08] LABS: Color, Urine Yellow (Yellow); Glucose, Dipstick Normal (Normal); Ketone-Dipstick 15 mg/dl (Negative); Leukocyte Esterase-Dipstick 25 /ul (Negative); Nitrite-Dipstick Negative (Negative); Occult Blood-Urine 250 /ul (Negative); Protein-Dipstick 100 mg/dl (Negative); Urine Bilirubin Dipstick Negative (Negative); Urine Clarity Sl. Cloudy (Clear); Urine Urobilinogen Normal (Normal)
[2022-08-07 08:13] LABS: Absolute Lymphocyte Count 0.34 X10^3/uL (0.83-4.51); Absolute Neutrophil Count 2.3 X10^3/uL (2.0-7.7); Basophil# 0.02 X10^3/uL; Basophil% 0.7 % (0-1); Hematocrit 30.5 % (37-47); Hemoglobin 10.7 g/dL (12.0-15.0); Lymphocyte # 0.34 X10^3/ul (0.83-4.51); Lymphocyte % 11.4 % (19-41); Mean Corp Hgb Conc 35.1 g/dL (32-36); Mean Corpuscular Hgb 33.2 pg (27.0-32.0); Mean Corpuscular Volume 94.7 fL (81-99); Mean Platelet Vol. 11.3 fl (6.2-12.0); Monocyte% 10.1 % (0-10); NRBC Flagged by Analyzer 0 % (0-5); Neutrophil # 2.31 X10^3/uL (2.7-7.7); Neutrophil % 77.5 % (47-70); POSITIVE DIFFERENTIAL YES; Platelet Count 117 K/mm3 (150-450); RBC Distribution Width CV 13.4 % (11.6-14.6); RBC Distribution Width SD 46.7 fl (35.1-43.9); Red Blood Count 3.22 M/mm3 (4.2-5.4)
[2022-08-07 08:15] LABS: Bacteria 3+ /hpf (None Seen); Red Blood Cells-Urine 25-50 SEEN /hpf (0-5); White Blood Cells 0-5 SEEN /hpf (0-5)
[2022-08-07 08:24] LABS: Differential Indicated SCAN CRITERIA MET
[2022-08-07 08:44] LABS: Differential Comment SCANNED
[2022-08-07 08:54] LABS: ALB/GLOB Ratio 0.8 RATIO (0.9-2.4); AST(SGOT) 102 U/L (15-37); Alanine Aminotransfer ALT/SGPT 30 U/L (13-56); Albumin, Serum 2.3 g/dL (3.2-5.0); Alkaline Phosphatase 94 U/L (45-117); Anion Gap 10 (5-15); BUN 27 mg/dL (7-18); BUN/Creat Ratio 6.4 RATIO (10-20); CPK Total, Creatine Kinase 1214 U/L (26-192); Calcium,Total 8.1 mg/dL (8.5-10.1); Chloride 105 mmol/L (98-107); Creatinine, Serum 4.21 mg/dL (0.55-1.02); EST Glomerular Filtration Rate 11 mL/min (>60); Est Glom Filt Rate - Afr Amer 13 mL/min (>60); Estimated Creatinine Clearance 9.36 ml/min; Globulin 2.8 g/dL (2.2-4.2); Glucose 81 mg/dL (74-106); Protein, Total 5.1 g/dL (6.4-8.2); Sodium Level 135 mmol/L (136-145); Troponin-I HS 105 pg/mL (3.0-54.0)
--- NOTE | 2022-08-07 09:21 | HP.PCM.HOS_ITS ---
HPI - General General Date of Admission: 08/07/22 Date of Service: 08/07/22 Chief Complaint: Generalized weakness HPI Narrative LALITA JOINER, is a 77 F with past medical history significant for end-stage renal disease on hemodialysis who presents with generalized weakness. Patient had apparently been seen in the emergency department a day prior to her admission. She was diagnosed with COVID however was discharged home. Patient apparently has not been able to take care of herself since being discharged home. She did complain of profound generalized weakness. She also had chills and subjective fever. Presented back to the emergency department decision was made to admit patient for further inpatient evaluation and management. [facility]LY [facility] Medical History Ambulates with cane Anxiety Back pain Cholecystectomy planned CKD (chronic kidney disease) stage 4, GFR 15-29 ml/min Depression Easy bruising ESRD on hemodialysis Ganglion cyst of dorsum of right wrist Gastric reflux High cholesterol History of cyst of breast History of echocardiogram History of edema History of hiatal hernia History of IBS History of renal dialysis HTN (hypertension) Kidney disease Kidney stones Leg cramps Loss of hearing Low iron Migraines Non-smoker Non-smoker Polio Tremor Home Medications tcpxpkljdw-ggljuugliehoj-xfmjvimg 50 mg-325 mg-40 mg tablet 1 tab PO Q6H PRN Headache 09/17/20 [History Last Taken Unknown] fluticasone propionate 50 mcg/actuation nasal spray,suspension 1 spray intranasa l DAILY PRN ALLERGIES 09/17/20 [History Last Taken Unknown] lansoprazole 15 mg capsule,delayed release 15 mg PO 1200 reflux 09/17/20 [History Last Taken Unknown] polyethylene glycol 3350 17 gram oral powder packet (Miralax) 17 g PO DAILY constipation 09/17/20 [History Last Taken 12/26/21] psyllium 1 packet PO DAILY constipation 09/17/20 [History Last Taken 12/26/21] cholecalciferol (vitamin D3) 1,250 mcg (50,000 unit) capsule 1,250 mcg PO TAYLOR 08/22/21 [History Last Taken 12/24/21] cyanocobalamin (vitamin B-12) 1,000 mcg capsule 1,000 mcg PO DAILY 08/22/21 [History Last Taken 12/27/21 04:30] dicyclomine 10 mg capsule 10 mg PO TID bowels 08/22/21 [History Last Taken 12/27/21 04:30] labetalol 200 mg tablet 400 mg PO DAILY 08/22/21 [History Last Taken 12/27/21 04:30] ektgssij-gddhzd-VK-thonzonm 3.3 mg-3 mg-10 mg-0.5 mg/mL ear drops,susp (Cortisporin-TC) 1 applic otic (ear) Q4H PRN Ear Pain 08/22/21 [History Last Taken 1 Week Ago ~12/20/21] amlodipine 10 mg tablet 10 mg PO DAILY BP 12/27/21 [History Last Taken 12/27/21 04:30] hydralazine 50 mg tablet 50 mg PO QHS SLEEP 12/27/21 [History Last Taken 12/26/21] Allergy/AdvReac Type Severity Reaction Status Date / Time codeine Allergy Nausea Verified 08/07/22 07:45 adhesive tape AdvReac Rash Verified 08/07/22 07:45 Opioids - Morphine Analogues AdvReac Upset Verified 08/07/22 07:45 [narcotics] Stomach Family History Father Heart disease Hypertension High cholesterol Mother Heart disease Hypertension PAF (paroxysmal atrial fibrillation) Other CVA (cerebral vascular accident) Surgical History H/O: hysterectomy History of cholecystectomy History of insertion of tunneled central venous catheter (CVC) with port History of tonsillectomy and adenoidectomy Hx of appendectomy Hx of colonoscopy Social History household members: spouse Smoking Status: Never smoker alcohol intake: never substance use type: does not use ROS ROS Narrative GENERAL: fever, chills, HEENT: headache, RESPIRATORY: cough, sputum production, shortness of breath, CARDIAC: denies chest pain, palpitations, orthopnea, GASTROINTESTINAL: denies abdominal pain, nausea, GENITOURINARY: denies dysuria, urgency, frequency, EXTREMITY: denies swelling MUSCULOSKELETAL: denies current joint pain or tenderness NEUROLOGIC: denies focal numbness, weakness, tingling HEMATOLOGIC: denies easy bruising and/or hemorrhage INTEGUMENT: denies rashes PSYCHIATRIC: denies suicidal or homicidal ideation Vital Signs Vital Signs Vital Signs: 08/07/22 07:50 08/07/22 07:55 08/07/22 08:52 Temperature 100.3 F H 100.3 F H Temperature Source Temporal Temporal Pulse Rate 91 101 H Respiratory Rate 20 H 20 H Respiratory Effort Normal Non-Labored Blood Pressure 185/94 H 185/94 H Blood Pressure Mean 124 124 Pulse Ox 98 98 Oxygen Delivery Method Room Air Room Air Weight Weight: 72.4 kg Body Mass Index (BMI) 27.3 Physical Exam Narrative GENERAL: cooperative but appears ill looking HEENT: Atraumatic; normocephalic EYES; Anicteric, Normal Conjunctiva NECK; supple, normal thyroid, RESPIRATORY: Diminished to auscultation CARDIOVASCULAR: Regular S1 S2, GI: soft, normoactive bowel sounds, : No Renal angle tenderness; EXTREMITIES: No edema, no clubbing, MUSCULOSKELETAL: no muscle wasting NEURO: Awake; no lateralizing signs. SKIN: No Rash PSYCH; Flat affect Results Lab / Micro Data Result Diagrams: 08/07/22 08:05 08/07/22 08:05 Labs: Laboratory Results - last 24 hr 08/07/22 07:50: Urine Color Yellow, Urine Clarity Sl. Cloudy, Urine pH 6.0, Ur Specific [place] 1.020, Urine Protein 100 H, Urine Glucose (UA) Normal, Urine Ketones 15 H, Urine Occult Blood 250 H, Urine Nitrite Negative, Urine Bilirubin Negative, Urine Urobilinogen Normal, Ur Leukocyte Esterase 25 H, Urine RBC 25-50 SEEN, Urine WBC 0-5 SEEN, Ur Squamous Epith Cells 0 SEEN, Urine Bacteria 3+, Urine Mucus 0 SEEN 08/07/22 08:05: WBC 3.0 L, RBC 3.22 L, Hgb 10.7 L, Hct 30.5 L, MCV 94.7, MCH 33.2 H, MCHC 35.1, RDW Std Deviation 46.7 H, RDW Coeff of Ricky 13.4, Plt Count 117 L, MPV 11.3, Immature Gran % (Auto) 0.300, Neut % (Auto) 77.5 H, Lymph % (Auto) 11.4 L, [place] % (Auto) 10.1 H, Eos % (Auto) 0.0, Baso % (Auto) 0.7, Absolute Neuts (auto) 2.3, Absolute Lymphs (auto) 0.34 L, Nucleated RBC % 0, Differential Comment SCANNED, Diff Path Review September08/07/22 08:05: Sodium 135 L, Potassium 4.0, Chloride 105, Carbon Dioxide 20.0 L , Anion Gap 10, BUN 27 H, Creatinine 4.21 H, Estim Creat Clear Calc 9.36, Est GFR (MDRD) Af Amer 13 L, Est GFR (MDRD) Non-Af 11 L, BUN/Creatinine Ratio 6.4 L, Glucose 81, Calcium 8.1 L, Total Bilirubin 0.40, AST 102 H, ALT 30, Alkaline Phosphatase 94, Total Creatine Kinase 1214 H, Troponin I High Sens 105 H, Total Protein 5.1 L, Albumin 2.3 L, Globulin 2.8, Albumin/Globulin Ratio 0.8 L Assessment & Plan Assessment/Plan (1) COVID: PLAN: Plan Patient is a 77-year-old lady diagnosed with COVID a day prior to her admission presented with progressive generalized weakness 1. Acute COVID-19 infection ? Patient presented with profound generalized weakness fever and chills. She was however not hypoxic and did not require oxygen. Patient has been admitted to regular nursing floor for symptom management. Also did order chest x-ray to rule out superimposed bacterial pneumonia 2. End-stage renal disease ? Patient is on hemodialysis, consult placed to nephrology for dialysis orders. Ordered BMP for daily monitoring 3. Essential hypertension ? Patient blood pressure control not optimal on admission did continue with amlodipine and labetalol. Added hydralazine as needed for systolic blood pressure greater than 160 4. Anemia - Secondary to chronic disorder monitoring H&H and transfuse if patient becomes symptomatic or hemoglobin falls below 7 5. GERD ? Patient is on PPI continued 6. DVT prophylaxis ? SC heparin Time spent in the patient's overall evaluation,decision-making process, review of diagnostic data, adjustment of management, discussion with other providers, nursing nursing and ancillary staff involved in patient's care documentation, 77 Minutes Advance planning; did discuss with the patient and family regarding advanced directives as well as CODE STATUS. Did explain the various scenarios involved ( FULL CODE, DNR CCA, DNR CCA with no intubation, and DNR CC and what each meant) patient elected to remain full code with CPR and intubation if needed. Order was placed. Time spent on discussion 18 minutes. Charges/Coding Visit Charges Inpatient E&M: 58920 Init Hosp L3 Procedures Hospitalists Procedures: 50889 Advncd Care Plan 30 Min
--- NOTE | 2022-08-07 10:48 | ED.RN ---
talked with pt's neighbor and stated bizarre behavior from pt's as of late. confusion and inapprop behaviors noted. mailbox full of mail and police called several times and pt not having rt responses about when asked. asking for health care social worker to check into situation as no kids or family and that they wont let anyone into house neighbor is diana deutsch and number is [phone]. call when need to have him come get to take back home
--- NOTE | 2022-08-07 11:14 | RAD_ITS ---
INDICATION: dyspnea EXAMINATION/TECHNIQUE: X-RAY - XR Chest 1 View COMPARISON: 08/06/2022. FINDINGS: The lungs are clear. Tortuous and calcified thoracic aorta. The heart is mildly enlarged. Right-sided hemodialysis catheter. No pleural effusion or pneumothorax. Degenerative changes of the thoracic spine. RAD/Chest 1 View (Portable) IMPRESSION: Stable exam. Electronically Signed: William Garcia MD at 18:25 EDT ,
[2022-08-07] MEDS: Polyethylene Glycol 3350 17 GM PACKET PO (12:00)
[2022-08-07] MEDS: amLODIPine 10 MG Tablet PO (12:01)
[2022-08-07] MEDS: Acetaminophen/Butalbital/Caffe 1 Tablet PO (12:01)
[2022-08-07] MEDS: Labetalol 200 MG Tablet 400 MG PO (12:01)
[2022-08-07] MEDS: Pantoprazole Sodium 20 MG Tablet PO (12:02)
[2022-08-07 13:27] LABS: Pathologist Review Reviewed
[2022-08-07] MEDS: Dicyclomine 10 MG Capsule PO ×2 (15:36→20:43)
--- NOTE | 2022-08-07 15:52 | CASEMGMT ---
Social Work Per nursing note from DENNISE Jackson called [facility] to make report regarding pt and pt . [facility] cannot review referral for pt until pt discharged but DENNISE explained there is concern for pt being home alone. DENNISE explained information given to Renetta by pt's neighbor. Macho at [facility] will look into pt as first referral and then once pt is discharged will review pt case as well. GABO Sweeney
--- NOTE | 2022-08-07 16:38 | NURSING ---
acute dialysis nurse informed of patient's admittance with nephrology consult.
[2022-08-07] MEDS: hydrALAZINE 50 MG Tablet PO (20:43)
[2022-08-07] MEDS: Heparin Injection (Vial) 5,000 UNIT/ML VIAL 5000 UNIT SC (20:44)
[2022-08-08] VITALS (9 sets, daily range): BP systolic 128–181; BP diastolic 59–67; PULSE 71–80; RESP 18; TEMP 35.9–37.7; O2SAT 97–100; BMI 25.4
[2022-08-08] MEDS: Acetaminophen/Butalbital/Caffe 1 Tablet PO ×3 (03:34→22:25)
[2022-08-08] MEDS: Dicyclomine 10 MG Capsule PO ×3 (06:45→22:24)
[2022-08-08 07:29] LABS: Anion Gap 12 (5-15); BUN 30 mg/dL (7-18); Chloride 107 mmol/L (98-107); Creatinine, Serum 4.28 mg/dL (0.55-1.02); EST Glomerular Filtration Rate 11 mL/min (>60); Est Glom Filt Rate - Afr Amer 13 mL/min (>60); Glucose 77 mg/dL (74-106); Phosphorus 3.9 mg/dL (2.5-4.9); Potassium 3.8 mmol/L (3.5-5.1); Sodium Level 137 mmol/L (136-145)
--- NOTE | 2022-08-08 07:47 | PN.HOSP_ITS ---
Reason for Visit Reason for Visit: Diagnoses COVID-19 (08/07/22) Subjective Subjective Patient is a 77-year-old lady diagnosed with COVID a day prior to her admission presented with progressive generalized weakne Objective Data Objective Data Vital Signs: Vital Signs Temp Pulse Resp BP Pulse Ox O2 Del Method 96.6 F L 77 18 166/67 H 98 Room Air 08/08/22 03:21 08/08/22 03:21 08/08/22 03:21 08/08/22 03:21 08/08/22 07:25 08/08/22 07:25 Oxygen Delivery Method Room Air Weight: 67.5 kg Body Mass Index (BMI) 25.5 Intake & Output: Intake and Output for Last 24 Hours 08/06/22 08/07/22 08/08/22 23:59 23:59 23:59 Intake Total 600 / 600 Balance 600 / 600 Lab / Micro Data Result Diagrams: 08/07/22 08:05 08/08/22 06:55 Labs: Laboratory Results - last 24 hr 08/07/22 07:50: Urine Color Yellow, Urine Clarity Sl. Cloudy, Urine pH 6.0, Ur Specific [place] 1.020, Urine Protein 100 H, Urine Glucose (UA) Normal, Urine Ketones 15 H, Urine Occult Blood 250 H, Urine Nitrite Negative, Urine Bilirubin Negative, Urine Urobilinogen Normal, Ur Leukocyte Esterase 25 H, Urine RBC 25-50 SEEN, Urine WBC 0-5 SEEN, Ur Squamous Epith Cells 0 SEEN, Urine Bacteria 3+, Ur ine Mucus 0 SEEN 08/07/22 08:05: WBC 3.0 L, RBC 3.22 L, Hgb 10.7 L, Hct 30.5 L, MCV 94.7, MCH 33.2 H, MCHC 35.1, RDW Std Deviation 46.7 H, RDW Coeff of Ricky 13.4, Plt Count 117 L, MPV 11.3, Immature Gran % (Auto) 0.300, Neut % (Auto) 77.5 H, Lymph % (Auto) 11.4 L, [place] % (Auto) 10.1 H, Eos % (Auto) 0.0, Baso % (Auto) 0.7, Absolute Neuts (auto) 2.3, Absolute Lymphs (auto) 0.34 L, Nucleated RBC % 0, Differential Comment SCANNED, Diff Path Review Reviewed 08/07/22 08:05: Sodium 135 L, Potassium 4.0, Chloride 105, Carbon Dioxide 20.0 L , Anion Gap 10, BUN 27 H, Creatinine 4.21 H, Estim Creat Clear Calc 9.36, Est GFR (MDRD) Af Amer 13 L, Est GFR (MDRD) Non-Af 11 L, BUN/Creatinine Ratio 6.4 L, Glucose 81, Calcium 8.1 L, Total Bilirubin 0.40, AST 102 H, ALT 30, Alkaline Phosphatase 94, Total Creatine Kinase 1214 H, Troponin I High Sens 105 H, Total Protein 5.1 L, Albumin 2.3 L, Globulin 2.8, Albumin/Globulin Ratio 0.8 L 08/08/22 06:55: WBC Cancelled, Corrected WBC Cancelled, RBC Cancelled, Hgb Cancelled, Hct Cancelled, MCV Cancelled, MCH Cancelled, MCHC Cancelled, RDW Std Deviation Cancelled, RDW Coeff of Ricky Cancelled, Plt Count Cancelled, MPV Ca ncelled, Immature Gran % (Auto) Cancelled, Neut % (Auto) Cancelled, Lymph % (Auto) Cancelled, [place] % (Auto) Cancelled, Eos % (Auto) Cancelled, Baso % (Auto) Cancelled, Absolute Neuts (auto) Cancelled, Absolute Lymphs (auto) Cancelled, Total Counted Cancelled, Neutrophils % (Manual) Cancelled, Band Neutrophils % Cancelled, Lymphocytes % (Manual) Cancelled, Monocytes % (Manual) Cancelled, Eosinophils % (Manual) Cancelled, Basophils % (Manual) Cancelled, Metamyelocytes % Cancelled, Myelocytes % Cancelled, Promyelocytes % Cancelled, Blast Cells % Cancelled, Plasma Cell % (Manual) Cancelled, Other Cells % Cancelled, Nucleated RBC % Cancelled, Nucleated RBCs/100 WBC Cancelled, Differential Comment Cancelled, Diff Path Review Cancelled, Hypersegmented Neuts Cancelled, Atypical Lymphocytes Cancelled, Reactive Lymphocytes Cancelled, Smudge Cells Cancelled, Toxic Granulation Cancelled, Toxic Vacuolation Cancelled, Dohle Bodies Cancelled, Yoni Rods Cancelled, Platelet Estimate Cancelled, Plt Morphology Comment Cancelled, RBC Morphology Cancelled, Polychromasia Cancelled, Hypochromasia Cancelled, Poikilocytosis Cancelled, Basophilic Stippling Cancelled, Anisocytosis Cancelled, Microcytosis Cancelled, Macrocytosis Cancelled, Spherocytes Cancelled, Sickle Cells Cancelled, Target Cells Cancelle d, Tear Drop Cells Cancelled, Ovalocytes Cancelled, Stomatocytes Cancelled, [place] Bodies Cancelled, Asael Cells Cancelled, Bite Cells Cancelled, Crenated Cell Cancelled, Acanthocytes (Spur) Cancelled, Rouleaux Cancelled, Schistocytes Cancelled 08/08/22 06:55: Sodium 137, Potassium 3.8, Chloride 107, Carbon Dioxide 18.0 L, Anion Gap 12, BUN 30 H, Creatinine 4.28 H, Estim Creat Clear Calc 9.20, Est GFR (MDRD) Af Amer 13 L, Est GFR (MDRD) Non-Af 11 L, BUN/Creatinine Ratio 7.0 L, Glucose 77, Calcium 8.0 L, Magnesium 2.0 08/08/22 06:55: Phosphorus 3.9 Micro: Microbiology 08/07/22 07:50 Urine, Clean Catch Legionella Antigen - Final 08/07/22 07:50 Urine, Clean Catch Streptococcus pneumoniae Antigen (M - Final Radiography Diagnostic Testing: Radiology Impression Chest X-Ray 08/07/22 11:14 IMPRESSION: Stable exam. Electronically Signed: William Garcia MD at 18:25 EDT , Physical Exam Narrative GENERAL: cooperative but appears ill looking HEENT: Atraumatic; normocephalic EYES; Anicteric, Normal Conjunctiva NECK; supple, normal thyroid, RESPIRATORY: Diminished to auscultation CARDIOVASCULAR: Regular S1 S2, GI: soft, normoactive bowel sounds, : No Renal angle tenderness; EXTREMITIES: No edema, no clubbing, MUSCULOSKELETAL: no muscle wasting NEURO: Awake; no lateralizing signs. SKIN: No Rash PSYCH; Flat affect Assessment & Plan Assessment/Plan (1) COVID: PLAN: Plan Patient is a 77-year-old lady diagnosed with COVID a day prior to her admission presented with progressive generalized weakness 1. Acute COVID-19 infection ? Patient presented with profound generalized weakness fever and chills. She was however not hypoxic and did not require oxygen. Patient has been admitted to regular nursing floor for symptom management. Also did order chest x-ray to rule out superimposed bacterial pneumonia ?08/08/2022; patient chest x-ray did not show any infiltrate 2. End-stage renal disease ? Patient is on hemodialysis,. She had apparently missed a couple of dialysis sessions. Consult placed to nephrology for dialysis orders. Ordered BMP for daily monitoring 3. Essential hypertension ? Patient blood pressure control not optimal on admission did continue with amlodipine and labetalol. Added hydralazine as needed for systolic blood pressure greater than 160 4. Anemia - Secondary to chronic disorder monitoring H&H and transfuse if patient becomes symptomatic or hemoglobin falls below 7 5. GERD ? Patient is on PPI continued 6. DVT prophylaxis ? SC heparin Time spent in the patient's overall evaluation,decision-making process, review of diagnostic data, adjustment of management, discussion with other providers, nursing nursing and ancillary staff involved in patient's care documentation, 57 Minutes Charges/Coding Visit Charges Inpatient E&M: 93125 Subs Hosp L3
[2022-08-08] MEDS: Cyanocobalamin 500 MCG Tablet 1000 MCG PO (08:30)
--- NOTE | 2022-08-08 10:00 | CASEMGMT ---
Addendum entered by Nehal Oleary 08/08/22 10:34: Pt goes to [facility] dialysis Mon/Wed/Fri with a chair time of 1010. Original Note: DAXA TUBBS Assessment: Face to Face with pt for initial transition planning/care coordination assessment. DAXA TUBBS introduced self and role at [facility], pt voices understanding and consents to assessment. Pt is A/O x4 and answers all questions appropriately at this time. Pt receiving dialysis currently and resting in bed with no distress. Care providers, pharmacy, and demographics verified/updated. Admitting Dx: COVID PCP:Nani Specialists:kush Castro Pharmacy: [address] in [place] Insurance: [employer] [facility] Prescription Benefit: yes LNOK: Lamont Bustamante, Living Arrangements: Pt lives with in a two story home with two steps to enter without a rail. Pt reports prior to COVID she was I in ADL's but now cannot walk and get out of bed very well. Pt denies concerns in the home. Transportation: Pt can drive self but states her transports her most of the time. DME/HHC/SNF: Pt has a FWW in the home, denies previous HHC and has been to [facility] in [place]. Pt board states Ax2 and ww. Pt states her normally could assist but he has also had covid and is weak. Discussed HHC and pt states they are very private people and prefer not to have anyone in the home. Pt is agreeable to a SNF for therapy post hospital stay prior to returning home. Pt is aware that SW will be in to meet with her. Updated SW. Pt states no further concerns/needs. CM to follow. Advised pt to ask CM if any further question/concerns/needs arise, voices understanding. Pt Goal: SNF Plan: SNF
--- NOTE | 2022-08-08 10:29 | PCM.CONS.R ---
Assessment & Plan Assessment/Plan (1) ESRD on hemodialysis: (2) COVID: (3) Generalized weakness: (4) Anemia of chronic disease: PLAN: Plan This is a 77-year-old female with past medical history significant for ESRD on hemodialysis Saturday who recently was diagnosed with COVID-19 infection, admitted to the hospital for profound generalized weakness. Nephrology consulted for history of ESRD and dialysis management. We will continue to provide dialysis support, patient last dialyzed at the kidney center a week ago. She missed dialysis Saturday and this past Saturday due to feeling unwell and weakness. Typically patient does not have large fluid gains and tolerates fluid removal. She will dialyze today over 4 hours on 3K bath with around 1.5 L fluid removal. Given recent poor appetite possibly patient has had body mass weight loss and we likely will need to adjust/lower dry weight at time of discharge. Reviewed chest x-ray which did not show any infiltrate or pulmonary edema. Blood pressures acceptable, continue amlodipine, hydralazine, labetalol. Patient has history of anemia of chronic disease and receives iron and ROMEL at kidney center. We will monitor hemoglobin trends, hemoglobin is 10.7. Patient does not need ROMEL with HD today. PT/OT consult. Further orders forthcoming as hospitalization evolves. Thank you for allowing us participate in the care of Ms. Joiner. HPI Consult Data Date of Consult: 08/08/22 HPI Narrative HPI Narrative: LALITA JOINER, is a 77 F with medical history significant for ESRD on hemodialysis Saturday who presented to the emergency room on Saturday with complaints of feeling unwell with generalized weakness, diagnosed with COVID and discharged to home. Patient presented back to the emergency room yesterday with complaining of weakness and feeling unwell and was subsequently admitted for further evaluation and treatment. Because of feeling unwell and emergency room visits patient missed her normal dialysis sessions, patient last dialyzed at the kidney center a week ago on Saturday. Patient is normally compliant with dialysis and does not typically miss dialysis sessions. Patient was seen on dialysis today, she reports she is feeling better, but reports poor appetite and weakness. Denies any nausea, vomiting or diarrhea. Denies any fever or recent chills. Patient is typically compliant with her dialysis sessions and does not normally have large fluid gains. FORMERLY [facility], [facility] Medical History (Updated 08/08/22 @ 10:34 by VETO Davis) Ambulates with cane Anxiety Back pain Cholecystectomy planned Chronic pain CKD (chronic kidney disease) stage 4, GFR 15-29 ml/min Depression Easy bruising ESRD on hemodialysis Ganglion cyst of dorsum of right wrist Gastric reflux Hearing loss, left Hearing loss, right High cholesterol History of cyst of breast History of echocardiogram History of edema History of hiatal hernia History of IBS History of renal dialysis HTN (hypertension) Kidney disease Kidney stones Leg cramps Loss of hearing Low iron Migraines Non-smoker Non-smoker Polio Tremor Home Medications icndcobxzf-mxyozvpkjzzfr-rarxollq 50 mg-325 mg-40 mg tablet 1 tab PO Q6H PRN Headache 09/17/20 [History Last Taken Unknown] fluticasone propionate 50 mcg/actuation nasal spray,suspension 1 spray intranasal DAILY PRN ALLERGIES 09/17/20 [History Last Taken Unknown] lansoprazole 15 mg capsule,delayed release 15 mg PO 1200 reflux 09/17/20 [History Last Taken Unknown] polyethylene glycol 3350 17 gram oral powder packet (Miralax) 17 g PO DAILY constipation 09/17/20 [History Last Taken 12/26/21] psyllium 1 packet PO DAILY constipation 09/17/20 [History Last Taken 12/26/21] cyanocobalamin (vitamin B-12) 1,000 mcg capsule 1,000 mcg PO DAILY 08/22/21 [History Last Taken 12/27/21 04:30] dicyclomine 10 mg capsule 10 mg PO TID bowels 08/22/21 [History Last Taken 12/27/21 04:30] labetalol 200 mg tablet 400 mg PO DAILY Check with primary doctor 08/22/21 [History Last Taken 12/27/21 04:30] aitrszxn-bqzlpb-ZV-thonzonm 3.3 mg-3 mg-10 mg-0.5 mg/mL ear drops,susp (Cortisporin-TC) 1 applic otic (ear) Q4H PRN Ear Pain 08/22/21 [History Last Taken 1 Week Ago ~12/20/21] amlodipine 10 mg tablet 10 mg PO DAILY BP 12/27/21 [History Last Taken 12/27/21 04:30] hydralazine 50 mg tablet 50 mg PO QHS SLEEP 12/27/21 [History Last Taken 12/26/21] ergocalciferol (vitamin D2) 1,250 mcg (50,000 unit) capsule (Vitamin D2) 1,250 mcg PO QWEEK Check with primary doctor 08/07/22 [History Last Taken Unknown] Allergy/AdvReac Type Severity Reaction Status Date / Time codeine Allergy Nausea Verified 08/07/22 07:45 adhesive tape AdvReac Rash Verified 08/07/22 07:45 Opioids - Morphine Analogues AdvReac Upset Verified 08/07/22 07:45 [narcotics] Stomach Family History Father Heart disease Hypertension High cholesterol Mother Heart disease Hypertension PAF (paroxysmal atrial fibrillation) Other CVA (cerebral vascular accident) Surgical History H/O: hysterectomy History of cholecystectomy History of insertion of tunneled central venous catheter (CVC) with port History of tonsillectomy and adenoidectomy Hx of appendectomy Hx of colonoscopy Social History household members: spouse Smoking Status: Never smoker alcohol intake: never substance use type: does not use ROS ROS Narrative As in HPI Physical Exam Narrative Alert and oriented x3, no apparent distress S1, S2, RRR Lung sounds clear anteriorly, no wheezes, rhonchi or rales noted Abdomen soft, nontender, positive bowel sounds Trace edema noted bilateral lower legs Tunneled HD catheter accessed for dialysis, dressing clean, dry and intact Lab / Micro Data Result Diagrams: 08/07/22 08:05 08/08/22 06:55 Labs: Laboratory Results - last 24 hr 08/07/22 08:05: Diff Path Review Reviewed 08/08/22 06:55: WBC Cancelled, Corrected WBC Cancelled, RBC Cancelled, Hgb Cancelled, Hct Cancelled, MCV Cancelled, MCH Cancelled, MCHC Cancelled, RDW Std Deviation Cancelled, RDW Coeff of Ricky Cancelled, Plt Count Cancelled, MPV Cancelled, Immature Gran % (Auto) Cancelled, Neut % (Auto) Cancelled, Lymph % (Auto) Cancelled, [place] % (Auto) Cancelled, Eos % (Auto) Cancelled, Baso % (Auto) Cancelled, Absolute Neuts (auto) Cancelled, Absolute Lymphs (auto) Cancelled, Total Counted Cancelled, Neutrophils % (Manual) Cancelled, Band Neutrophils % Cancelled, Lymphocytes % (Manual) Cancelled, Monocytes % (Manual) Cancelled, Eosinophils % (Manual) Cancelled, Basophils % (Manual) Cancelled, Metamyelocytes % Cancelled, Myelocytes % Cancelled, Promyelocytes % Cancelled, Blast Cells % Cancelled, Plasma Cell % (Manual) Cancelled, Other Cells % Cancelled, Nucleated RBC % Cancelled, Nucleated RBCs/100 WBC Cancelled, Differential Comment Cancelled, Diff Path Review Cancelled, Hypersegmented Neuts Cancelled, Atypical Lymphocytes Cancelled, Reactive Lymphocytes Cancelled, Smudge Cells Cancelled, Toxic Granulation Cancelled, Toxic Vacuolation Cancelled, Dohle Bodies Cancelled, Yoni Rods Cancelled, Platelet Estimate Cancelled, Plt Morphology Comment Cancelled, RBC Morphology Cancelled, Polychromasia Cancelled, Hypochromasia Cancelled, Poikilocytosis Cancelled, Basophilic Stippling Cancelled, Anisocytosis Cancelled, Microcytosis Cancelled, Macrocytosis Cancelled, Spherocytes Cancelled, Sickle Cells Cancelled, Target Cells Cancelled, Tear Drop Cells Cancelled, Ovalocytes Cancelled, Stomatocytes Cancelled, [place] Bodies Cancelled, [place] Cells Cancelled, Bite Cells Cancelled, Crenated Cell Cancelled, Acanthocytes (Spur) Cancelled, Rouleaux Cancelled, Schistocytes Cancelled 08/08/22 06:55: Sodium 137, Potassium 3.8, Chloride 107, Carbon Dioxide 18.0 L, Anion Gap 12, BUN 30 H, Creatinine 4.28 H, Estim Creat Clear Calc 9.20, Est GFR (MDRD) Af Amer 13 L, Est GFR (MDRD) Non-Af 11 L, BUN/Creatinine Ratio 7.0 L, Glucose 77, Calcium 8.0 L, Magnesium 2.0 08/08/22 06:55: Phosphorus 3.9 Micro: Microbiology 08/07/22 07:50 Urine, Clean Catch Legionella Antigen - Final 08/07/22 07:50 Urine, Clean Catch Streptococcus pneumoniae Antigen (M - Final Radiology Impression Chest X-Ray 08/07/22 11:14 IMPRESSION: Stable exam. Electronically Signed: William Garcia MD at 18:25 EDT ,
[2022-08-08 11:24] LABS: Absolute Lymphocyte Count 0.43 X10^3/uL (0.83-4.51); Absolute Neutrophil Count 1.3 X10^3/uL (2.0-7.7); Basophil# 0.01 X10^3/uL; Basophil% 0.5 % (0-1); Eosinophil# 0.01 X10^3/uL; Eosinophils% 0.5 % (0-5); Hematocrit 26.3 % (37-47); Lymphocyte # 0.43 X10^3/ul (0.83-4.51); Lymphocyte % 21.5 % (19-41); Mean Corp Hgb Conc 34.2 g/dL (32-36); Mean Corpuscular Hgb 32.5 pg (27.0-32.0); Mean Corpuscular Volume 94.9 fL (81-99); Mean Platelet Vol. 11.5 fl (6.2-12.0); Monocyte# 0.21 X10^3/uL; Monocyte% 10.5 % (0-10); NRBC Flagged by Analyzer 0 % (0-5); Neutrophil # 1.33 X10^3/uL (2.7-7.7); Neutrophil % 66.5 % (47-70); POSITIVE DIFFERENTIAL YES; Platelet Count 123 K/mm3 (150-450); RBC Distribution Width CV 13.4 % (11.6-14.6); RBC Distribution Width SD 47.4 fl (35.1-43.9); Red Blood Count 2.77 M/mm3 (4.2-5.4)
[2022-08-08 11:26] LABS: Differential Indicated SCAN CRITERIA MET
[2022-08-08] MEDS: Heparin Injection (Vial) 5,000 UNIT/ML VIAL 5000 UNIT SC ×2 (13:01→22:23)
[2022-08-08] MEDS: Pantoprazole Sodium 20 MG Tablet PO (13:02)
--- NOTE | 2022-08-08 13:27 | DIALYSIS ---
Hemodialysis completed, 4 hours on a 3 K bath. Fluid removed was 1500 ml. Patient tolerated well.
--- NOTE | 2022-08-08 14:05 | CASEMGMT ---
Addendum entered by Jennifer Lee 08/08/22 15:48: [facility] reached out. Pt has been accepted. [facility] to start precert today. SW informed pt and of acceptance. Will await insurance auth. Original Note: Social Work ? SW in to meet with pt following update from Dr/therapy team that pt will need placement at nursing facility. SW introduced self and role at the hospital. Pt agreeable to discussing discharge planning. A list of SNF providers including quality and resource use data consistent with the patient?s preferred geographic region, medical needs, and insurance network were provided from the [employer] Guide. Pt reviewed list with , who was also present in the room. Pt feels [facility] will be best choice as transportation is limited and [facility] also offers in-house dialysis and accepts pts with covid. ? SW sent referral to [facility]. PLAN: [facility], pending acceptance and precert GABO Sweeney?
[2022-08-08] MEDS: Heparin 10,000 UNITS/10 ML Vial IV (16:28)
[2022-08-08] MEDS: hydrALAZINE 50 MG Tablet PO (22:24)
[2022-08-09] VITALS (8 sets, daily range): BP systolic 134–166; BP diastolic 50–67; PULSE 69–79; RESP 16–18; TEMP 36.7–37.3; O2SAT 95–100; BMI 24.6
[2022-08-09] MEDS: Dicyclomine 10 MG Capsule PO ×3 (05:16→21:09)
[2022-08-09 07:44] LABS: Absolute Neutrophil Count 1.4 X10^3/uL (2.0-7.7); Hematocrit 28.3 % (37-47); Hemoglobin 9.5 g/dL (12.0-15.0); Lymphocyte % 20.1 % (19-41); Mean Corp Hgb Conc 33.6 g/dL (32-36); Mean Corpuscular Hgb 31.7 pg (27.0-32.0); Mean Corpuscular Volume 94.3 fL (81-99); Mean Platelet Vol. 11.2 fl (6.2-12.0); Monocyte# 0.17 X10^3/uL; Monocyte% 8.5 % (0-10); NRBC Flagged by Analyzer 0 % (0-5); Neutrophil % 70.4 % (47-70); POSITIVE DIFFERENTIAL YES; Platelet Count 129 K/mm3 (150-450); RBC Distribution Width CV 13.6 % (11.6-14.6); RBC Distribution Width SD 47.6 fl (35.1-43.9)
[2022-08-09 07:52] LABS: Anion Gap 10 (5-15); BUN 11 mg/dL (7-18); BUN/Creat Ratio 4.6 RATIO (10-20); Calcium,Total 7.6 mg/dL (8.5-10.1); Chloride 100 mmol/L (98-107); Creatinine, Serum 2.37 mg/dL (0.55-1.02); EST Glomerular Filtration Rate 21 mL/min (>60); Est Glom Filt Rate - Afr Amer 25 mL/min (>60); Estimated Creatinine Clearance 16.62 ml/min; Glucose 86 mg/dL (74-106); Potassium 3.3 mmol/L (3.5-5.1); Sodium Level 137 mmol/L (136-145)
--- NOTE | 2022-08-09 08:13 | PCM.PN.HOSP ---
Reason for Visit Reason for Visit: Diagnoses COVID-19 (08/07/22) Subjective Subjective Seen complains of fatigue. Headache somewhat improving. Plan is for patient to be transferred to a fpc facility pending insurance approval Objective Data Objective Data Vital Signs: Vital Signs Temp Pulse Resp BP Pulse Ox O2 Del Method 99.2 F H 71 18 146/50 H 100 Room Air 08/09/22 05:11 08/09/22 05:11 08/09/22 05:11 08/09/22 05:11 08/09/22 07:15 08/09/22 07:15 Oxygen Delivery Method Room Air Weight: 65.4 kg Body Mass Index (BMI) 24.6 Intake & Output: Intake and Output for Last 24 Hours 08/07/22 08/08/22 08/09/22 23:59 23:59 23:59 Intake Total 1250 / 1450 700 / 700 Output Total 1500 / 1500 Balance -250 / -50 700 / 700 Lab / Micro Data Result Diagrams: 08/08/22 09:45 08/09/22 07:10 Labs: Laboratory Results - last 24 hr 08/08/22 09:45: WBC 2.0 L, RBC 2.77 L, Hgb 9.0 L, Hct 26.3 L, MCV 94.9, MCH 32.5 H, MCHC 34.2, RDW Std Deviation 47.4 H, RDW Coeff of Ricky 13.4, Plt Count 123 L, MPV 11.5, Immature Gran % (Auto) 0.500, Neut % (Auto) 66.5, Lymph % (Auto) 21.5, [place] % (Auto) 10.5 H, Eos % (Auto) 0.5, Baso % (Auto) 0.5, Absolute Neuts (auto) 1.3 L, Absolute Lymphs (auto) 0.43 L, Nucleated RBC % 0, Diff Path Review September08/09/22 07:10: Sodium 137, Potassium 3.3 L, Chloride 100, Carbon Dioxide 27.0, Anion Gap 10, BUN 11, Creatinine 2.37 H, Estim Creat Clear Calc 16.62, Est GFR (MDRD) Af Amer 25 L, Est GFR (MDRD) Non-Af 21 L, BUN/Creatinine Ratio 4.6 L, Glucose 86, Calcium 7.6 L Micro: Microbiology 08/07/22 07:50 Urine, Clean Catch Legionella Antigen - Final 08/07/22 07:50 Urine, Clean Catch Streptococcus pneumoniae Antigen (M - Final Physical Exam Narrative GENERAL: cooperative but appears ill looking HEENT: Atraumatic; normocephalic EYES; Anicteric, Normal Conjunctiva NECK; supple, normal thyroid, RESPIRATORY: Diminished to auscultation CARDIOVASCULAR: Regular S1 S2, GI: soft, normoactive bowel sounds, : No Renal angle tenderness; EXTREMITIES: No edema, no clubbing, MUSCULOSKELETAL: no muscle wasting NEURO: Awake; no lateralizing signs. SKIN: No Rash PSYCH; Flat affect Assessment & Plan Assessment/Plan (1) COVID: PLAN: Plan Patient is a 77-year-old lady diagnosed with COVID a day prior to her admission presented with progressive generalized weakness 1. Acute COVID-19 infection ? Patient presented with profound generalized weakness fever and chills. She was however not hypoxic and did not require oxygen. Patient has been admitted to regular nursing floor for symptom management. Also did order chest x-ray to rule out superimposed bacterial pneumonia ?08/08/2022; patient chest x-ray did not show any infiltrate 2. End-stage renal disease ? Patient is on hemodialysis,. She had apparently missed a couple of dialysis sessions. Consult placed to nephrology for dialysis orders. Ordered BMP for daily monitoring 3. Essential hypertension ? Patient blood pressure control not optimal on admission did continue with amlodipine and labetalol. Added hydralazine as needed for systolic blood pressure greater than 160 4. Anemia - Secondary to chronic disorder monitoring H&H and transfuse if patient becomes symptomatic or hemoglobin falls below 7 5. GERD ? Patient is on PPI continued 6. DVT prophylaxis ? SC heparin Time spent in the patient's overall evaluation,decision-making process, review of diagnostic data, adjustment of management, discussion with other providers, nursing nursing and ancillary staff involved in patient's care documentation, 37 Minutes Charges/Coding Visit Charges Inpatient E&M: 37480 Subs Hosp L2
[2022-08-09 08:42] LABS: Differential Indicated SCAN CRITERIA MET
[2022-08-09 08:49] LABS: Differential Comment SCANNED
--- NOTE | 2022-08-09 10:04 | PN.RENAL_ITS ---
Subjective Subjective Sitting up in bed eating breakfast. Reports feeling much better today. Denies any nausea or vomiting. Objective Data Objective Data Vital Signs: Vital Signs Temp Pulse Resp BP Pulse Ox O2 Del Method 99.2 F H 71 18 146/50 H 100 Room Air 08/09/22 05:11 08/09/22 05:11 08/09/22 05:11 08/09/22 05:11 08/09/22 07:15 08/09/22 07:15 Oxygen Delivery Method Room Air Weight: 65.4 kg Body Mass Index (BMI) 24.6 Intake & Output: Intake and Output for Last 24 Hours 08/07/22 08/08/22 08/09/22 23:59 23:59 23:59 Intake Total 1250 / 1450 700 / 700 Output Total 1500 / 1500 Balance -250 / -50 700 / 700 Lab / Micro Data Result Diagrams: 08/09/22 07:10 08/09/22 07:10 Labs: Laboratory Results - last 24 hr 08/08/22 09:45: WBC 2.0 L, RBC 2.77 L, Hgb 9.0 L, Hct 26.3 L, MCV 94.9, MCH 32.5 H, MCHC 34.2, RDW Std Deviation 47.4 H, RDW Coeff of Ricky 13.4, Plt Count 123 L, MPV 11.5, Immature Gran % (Auto) 0.500, Neut % (Auto) 66.5, Lymph % (Auto) 21.5, [place] % (Auto) 10.5 H, Eos % (Auto) 0.5, Baso % (Auto) 0.5, Absolute Neuts (auto) 1.3 L, Absolute Lymphs (auto) 0.43 L, Nucleated RBC % 0, Diff Path Review September08/09/22 07:10: WBC 2.0 L, RBC 3.00 L, Hgb 9.5 L, Hct 28.3 L, MCV 94.3, MCH 31.7, MCHC 33.6, RDW Std Deviation 47.6 H, RDW Coeff of Ricky 13.6, Plt Count 129 L, MPV 11.2, Immature Gran % (Auto) 1.000 H, Neut % (Auto) 70.4 H, Lymph % (Auto) 20.1, [place] % (Auto) 8.5, Eos % (Auto) 0.0, Baso % (Auto) 0.0, Absolute Neuts (auto) 1.4 L, Absolute Lymphs (auto) 0.40 L, Nucleated RBC % 0, Differential Comment SCANNED, Diff Path Review September foll 08/09/22 07:10: Sodium 137, Potassium 3.3 L, Chloride 100, Carbon Dioxide 27.0, Anion Gap 10, BUN 11, Creatinine 2.37 H, Estim Creat Clear Calc 16.62, Est GFR (MDRD) Af Amer 25 L, Est GFR (MDRD) Non-Af 21 L, BUN/Creatinine Ratio 4.6 L, Glucose 86, Calcium 7.6 L Micro: Microbiology 08/08/22 22:30 Sputum, Expectorated/Coughed Gram Stain - Final 08/07/22 07:50 Urine, Clean Catch Legionella Antigen - Final 08/07/22 07:50 Urine, Clean Catch Streptococcus pneumoniae Antigen (M - Final Physical Exam Narrative Alert and oriented x3, no apparent distress S1, S2, RRR Lung sounds clear anteriorly, no wheezes, rhonchi or rales noted Abdomen soft, nontender, positive bowel sounds Trace edema noted bilateral lower legs Tunneled HD catheter dressing clean, dry and intact Assessment & Plan Assessment/Plan (1) ESRD on hemodialysis: (2) COVID: (3) Generalized weakness: (4) Anemia of chronic disease: PLAN: Plan - ESRD on hemodialysis Saturday; tolerated dialysis yesterday with around 1.5 L fluid removal and able to get to dry weight. No acute indication for [employer] SUPER[employer] today. We will plan for dialysis tomorrow. - History of hypokalemia on oral potassium 3 times weekly and 3K dialysate bath. We will give 1 dose potassium today, potassium 3.3 today. Patient does not need renal diet restriction. Continue Nepro as ordered - COVID-19 infection, on room air -Anemia of chronic disease, hemoglobin 9.5 and does not need ROMEL in hospital -Blood pressures acceptable on amlodipine, hydralazine, labetalol -Discharge planning in progress. Patient possibly to go to [facility] for rehab/therapy
[2022-08-09] MEDS: Cyanocobalamin 500 MCG Tablet 1000 MCG PO (10:11)
[2022-08-09] MEDS: Potassium Chloride Oral Tablet 20 MEQ 40 MEQ PO (10:11)
[2022-08-09] MEDS: amLODIPine 10 MG Tablet PO (10:12)
[2022-08-09] MEDS: Heparin Injection (Vial) 5,000 UNIT/ML VIAL 5000 UNIT SC ×2 (10:12→21:10)
[2022-08-09] MEDS: Labetalol 200 MG Tablet 400 MG PO (10:13)
[2022-08-09] MEDS: Pantoprazole Sodium 20 MG Tablet PO (10:13)
[2022-08-09 13:21] LABS: Pathologist Review Reviewed
--- NOTE | 2022-08-09 13:44 | PCM.TXEXTCAR ---
Diet Diet Order/Speech Therapy: 08/08/22 10:55 Diet: Regular - General Type of Dietary Supplement:: Nepro Is pt able to select menu?: Yes Diet Comments: 120ml Nepro BID w/ breakfast and dinner, chocolate Therapies Physical Therapy: Eval and Treat Occupational Therapy: Eval and Treat Problem/Diagnosis (1) ESRD on hemodialysis: Status: Acute Code(s): N18.6 - End stage renal disease; Z99.2 - Dependence on renal dialysis (2) COVID: Status: Acute Code(s): U07.1 - COVID-19 (3) Generalized weakness: Status: Acute Code(s): R53.1 - Weakness (4) Anemia of chronic disease: Status: Chronic Code(s): D63.8 - Anemia in other chronic diseases classified elsewhere Plan Patient is a 77-year-old lady diagnosed with COVID a day prior to her admission presented with progressive generalized weakness 1. Acute COVID-19 infection ? Patient presented with profound generalized weakness fever and chills. She was however not hypoxic and did not require oxygen. Patient has been admitted to regular nursing floor for symptom management. Also did order chest x-ray to rule out superimposed bacterial pneumonia ?08/08/2022; patient chest x-ray did not show any infiltrate 2. End-stage renal disease ? Patient is on hemodialysis,. She had apparently missed a couple of dialysis sessions. Consult placed to nephrology for dialysis orders. Ordered BMP for daily monitoring 3. Essential hypertension ? Patient blood pressure control not optimal on admission did continue with amlodipine and labetalol. Added hydralazine as needed for systolic blood pressure greater than 160 4. Anemia - Secondary to chronic disorder monitoring H&H and transfuse if patient becomes symptomatic or hemoglobin falls below 7 5. GERD ? Patient is on PPI continued 6. DVT prophylaxis ? SC heparin Time spent in the patient's overall evaluation,decision-making process, review of diagnostic data, adjustment of management, discussion with other providers, nursing nursing and ancillary staff involved in patient's care documentation, 37 Minutes Allergies/Procedures Done in Hospital Allergies codeine Allergy (Verified 08/07/22 07:45) Nausea adhesive tape Adverse Reaction (Verified 08/07/22 07:45) Rash Opioids - Morphine Analogues [narcotics] Adverse Reaction (Verified 08/07/22 07:45) Upset Stomach Type of Care/Length of Stay Estimated LOS: Convalescent Care Less Than 30 days Type of Care Needed: Skilled Rehab Potential: Good Prognosis: Good Additional Orders/Day of Discharge Day of Discharge: 08/09/22 Dietary and Speech Recommendations Dietitian Recommendations/Changes: Continue renal/general diet as ordered. Will add 120 ml Nepro BID w/ breakfast and dinner until appetite improves. Adjust ONS as needed. Discharge Plan Admission Admit Date/Time: 08/07/22 09:19 Attending Provider: Roby Adler Primary Care Provider: Nohemi Cardoza Consulting Providers: Darrius Castro Discharge Orders/Prescriptions Prescriptions: Continued labetalol 200 mg tablet 400 mg PO DAILY cyanocobalamin (vitamin B-12) 1,000 mcg capsule 1,000 mcg PO DAILY Cortisporin-TC 3.3-3-10-0.5 mg/mL drops,suspension 1 applic otic (ear) Q4H PRN (Reason: Ear Pain) Rx Instructions: apply to (cotton) wick; replace wick every 24 hours dicyclomine 10 mg capsule 10 mg PO TID polyethylene glycol 3350 [Miralax] 17 gram Powder In Packet 17 g PO DAILY psyllium Packet 1 packet PO DAILY rspygfftzm-reroljvvvjauh-tpzc 50-325-40 mg Tablet 1 tab PO Q6H PRN (Reason: Headache) lansoprazole 15 mg Capsule,Delayed Release(Dr/Ec) 15 mg PO 1200 fluticasone propionate 50 mcg/actuation [place],Suspension 1 spray INTRANASAL DAILY PRN (Reason: ALLERGIES) hydralazine 50 mg tablet 50 mg PO QHS Label Comments: take 1 tablet by mouth once daily amlodipine 10 mg tablet 10 mg PO DAILY ergocalciferol (vitamin D2) [Vitamin D2] 1,250 mcg (50,000 unit) Capsule 1,250 mcg PO QWEEK Rx Instructions: every saturday Referrals / Follow Up: Nohemi Cardoza MD [Primary Care Provider] - Within 1 Week Disposition Disposition (needs filled in before D/C Order can be placed): Long-Term Facility
--- NOTE | 2022-08-09 13:55 | DS.PCM_ITS ---
Providers Date of Admission: 08/07/22 Date of Discharge: 08/09/22 Primary Care Physician: Dr. Nohemi Cardoza MD Consultations 08/07/22 14:46 Consult: Nephrology Routine Consulting Provider: Darrius Castro Reason for Consult: ESRD, HD EMERGENT Consult: No MD Notified: Yes Date Notified: 08/07/22 Time Notified: 14:46 Method of Notification: Answering Service Reason For Visit: COVID Diagnosis Discharge Diagnosis (1) ESRD on hemodialysis: Status: Acute Code(s): N18.6 - End stage renal disease; Z99.2 - Dependence on renal dialysis (2) COVID: Status: Acute Code(s): U07.1 - COVID-19 (3) Generalized weakness: Status: Acute Code(s): R53.1 - Weakness (4) Anemia of chronic disease: Status: Chronic Code(s): D63.8 - Anemia in other chronic diseases classified elsewhere Plan Patient is a 77-year-old lady diagnosed with COVID a day prior to her admission presented with progressive generalized weakness 1. Acute COVID-19 infection ? Patient presented with profound generalized weakness fever and chills. She was however not hypoxic and did not require oxygen. Patient has been admitted to regular nursing floor for symptom management. Also did order chest x-ray to rule out superimposed bacterial pneumonia ?08/08/2022; patient chest x-ray did not show any infiltrate 2. End-stage renal disease ? Patient is on hemodialysis,. She had apparently missed a couple of dialysis sessions. Consult placed to nephrology for dialysis orders. Ordered BMP for daily monitoring 3. Essential hypertension ? Patient blood pressure control not optimal on admission did continue with amlodipine and labetalol. Added hydralazine as needed for systolic blood pressure greater than 160 4. Anemia - Secondary to chronic disorder monitoring H&H and transfuse if patient becomes symptomatic or hemoglobin falls below 7 5. GERD ? Patient is on PPI continued 6. DVT prophylaxis ? SC heparin Time spent in the patient's overall evaluation,decision-making process, review of diagnostic data, adjustment of management, discussion with other providers, nursing nursing and ancillary staff involved in patient's care documentation, 37 Minutes Medications at Discharge Home Medications ugepwwyvza-qfmltrzobuqzc-ydkbaqxd 50 mg-325 mg-40 mg tablet 1 tab PO Q6H PRN Headache 09/17/20 fluticasone propionate 50 mcg/actuation nasal spray,suspension 1 spray intranasal DAILY PRN ALLERGIES 09/17/20 lansoprazole 15 mg capsule,delayed release 15 mg PO 1200 reflux 09/17/20 polyethylene glycol 3350 17 gram oral powder packet (Miralax) 17 g PO DAILY constipation 09/17/20 psyllium 1 packet PO DAILY constipation 09/17/20 cyanocobalamin (vitamin B-12) 1,000 mcg capsule 1,000 mcg PO DAILY 08/22/21 dicyclomine 10 mg capsule 10 mg PO TID bowels 08/22/21 labetalol 200 mg tablet 400 mg PO DAILY Check with primary doctor 08/22/21 tyhonsvg-oyaugb-TB-thonzonm 3.3 mg-3 mg-10 mg-0.5 mg/mL ear drops,susp (Cortisporin-TC) 1 applic otic (ear) Q4H PRN Ear Pain 08/22/21 amlodipine 10 mg tablet 10 mg PO DAILY BP 12/27/21 hydralazine 50 mg tablet 50 mg PO QHS SLEEP 12/27/21 ergocalciferol (vitamin D2) 1,250 mcg (50,000 unit) capsule (Vitamin D2) 1,250 mcg PO QWEEK Check with primary doctor 08/07/22 Hospital Course Summary of Care Provided Minutes Spent on Discharge: 37 Physical Exam Narrative GENERAL: cooperative but appears ill looking HEENT: Atraumatic; normocephalic EYES; Anicteric, Normal Conjunctiva NECK; supple, normal thyroid, RESPIRATORY: Diminished to auscultation CARDIOVASCULAR: Regular S1 S2, GI: soft, normoactive bowel sounds, : No Renal angle tenderness; EXTREMITIES: No edema, no clubbing, MUSCULOSKELETAL: no muscle wasting NEURO: Awake; no lateralizing signs. SKIN: No Rash PSYCH; Flat affect Weight / BMI Weight Weight: 65.4 kg Body Mass Index (BMI) 24.6 ABG / Lab / Microbiology Data Result Diagrams: 08/09/22 07:10 08/09/22 07:10 Laboratory: Laboratory Results - last 24 hr 08/08/22 09:45: Diff Path Review Reviewed 08/09/22 07:10: WBC 2.0 L, RBC 3.00 L, Hgb 9.5 L, Hct 28.3 L, MCV 94.3, MCH 31.7, MCHC 33.6, RDW Std Deviation 47.6 H, RDW Coeff of Ricky 13.6, Plt Count 129 L, MPV 11.2, Immature Gran % (Auto) 1.000 H, Neut % (Auto) 70.4 H, Lymph % (Auto) 20.1, [place] % (Auto) 8.5, Eos % (Auto) 0.0, Baso % (Auto) 0.0, Absolute Neuts (auto) 1.4 L, Absolute Lymphs (auto) 0.40 L, Nucleated RBC % 0, Differential Comment SCANNED, Diff Path Review September08/09/22 07:10: Sodium 137, Potassium 3.3 L, Chloride 100, Carbon Dioxide 27.0, Anion Gap 10, BUN 11, Creatinine 2.37 H, Estim Creat Clear Calc 16.62, Est GFR (MDRD) Af Amer 25 L, Est GFR (MDRD) Non-Af 21 L, BUN/Creatinine Ratio 4.6 L, Glucose 86, Calcium 7.6 L Microbiology: Microbiology 08/08/22 22:30 Sputum, Expectorated/Coughed Gram Stain - Final 08/07/22 07:50 Urine, Clean Catch Legionella Antigen - Final 08/07/22 07:50 Urine, Clean Catch Streptococcus pneumoniae Antigen (M - Final D/C Instructions Discharge Diet: No restrictions Discharge Activity: Return to Normal Activity Call your doctor if you observe: Fever of 101 or Higher, Shortness of breath, Fainting spells and Chest pain Meaningful Use Info Meaningful Use Diagnoses (Choose all that apply): None applicable Discharge Plan Admission Admit Date/Time: 08/07/22 09:19 Attending Provider: Roby Adler Primary Care Provider: Nohemi Cardoza Consulting Providers: Darrius Castro Discharge Orders/Prescriptions Prescriptions: Continued labetalol 200 mg tablet 400 mg PO DAILY cyanocobalamin (vitamin B-12) 1,000 mcg capsule 1,000 mcg PO DAILY Cortisporin-TC 3.3-3-10-0.5 mg/mL drops,suspension 1 applic otic (ear) Q4H PRN (Reason: Ear Pain) Rx Instructions: apply to (cotton) wick; replace wick every 24 hours dicyclomine 10 mg capsule 10 mg PO TID polyethylene glycol 3350 [Miralax] 17 gram Powder In Packet 17 g PO DAILY psyllium Packet 1 packet PO DAILY esmvjihowv-tkrflcvqbtgtp-pfus 50-325-40 mg Tablet 1 tab PO Q6H PRN (Reason: Headache) lansoprazole 15 mg Capsule,Delayed Release(Dr/Ec) 15 mg PO 1200 fluticasone propionate 50 mcg/actuation [place],Suspension 1 spray INTRANASAL DAILY PRN (Reason: ALLERGIES) hydralazine 50 mg tablet 50 mg PO QHS Label Comments: take 1 tablet by mouth once daily amlodipine 10 mg tablet 10 mg PO DAILY ergocalciferol (vitamin D2) [Vitamin D2] 1,250 mcg (50,000 unit) Capsule 1,250 mcg PO QWEEK Rx Instructions: every saturday Referrals / Follow Up: Nohemi Cardoza MD [Primary Care Provider] - Within 1 Week Disposition Disposition (needs filled in before D/C Order can be placed): [facility] Charges/Coding Visit Charges Inpatient E&M: 53733 Disch Hosp >30min
--- NOTE | 2022-08-09 16:23 | CASEMGMT ---
Addendum entered by Mirta Tong 08/09/22 18:02: Per Rahel at [facility], they have not been able to get orders from Dr. Carodza. Pt's Lamont is not able to admit at this time. DENNISE met with pt and Lamont and updated. Lamont stating he is not safe to drive home. With pt permission, DENNISE placed phone call to pt neighbor Tyler Simon [phone] to discuss situation. Tyler and his are agreeable to come pick pt and pt's car up and drive him home. He will arrive at 6:45. Nursing updated and will have Lamont at main entrance at 6:45. Pt and Lamont are appreciative. Transportation arranged with [facility] for 9:00 picker feeder via [employer]. Nursing updated and to tell pt. [facility] updated. Disposition: [facility], skilled level of care under convalescent stay GABO Dong Original Note: Social Work Precert has been obtained and pt can discharge to [facility]. Physician updated and pt is ready for discharge today. 7000 exemption form completed in [facility] and sent along with discharge orders to [facility] via [facility]. SW met with pt and to explain discharge for today. Pt stating that she is agreeable to go to [facility] but pt's spouse Lamont cannot be left home alone due to dementia and will need to come to [facility] with her. SW inquired about Lamont's care for the duration of time pt was in the hospital and pt states that he has been home alone but not safe. Pt has not ate anything and is unsafe home alone. SW inquired about how pt got to hospital and she said he drove, although he is not suppose to do this. Pt and spouse have no children and no family. SW inquired about neighbors or friends and pt states she has a neighbor that checked in on when EMS arrived for pt but not other connections. SW explained that insurance will not pay for Lamont's stay and pt acknowledge understanding of this and states she can pay for it privately. SW called Rahel at [facility] and updated on situation. Rahel is agreeable to accept Lamont under respite stay but will need orders from pt PCP. Pt and updated. Waiting on return call from Rahel for outcome of talking with Dr. Cardoza. GABO Dong
[2022-08-09] MEDS: hydrALAZINE 50 MG Tablet PO (21:09)
--- NOTE | 2022-08-10 08:51 | CASEMGMT ---
Social Work Phone call placed to [facility] and spoke with Lynne. SW updated that Mrs. Bustamante was admitted to [facility] last evening. Also updated that this automotive service writer attempted to get Mr. Bustamante placed but was unsuccessful. SW received message from Rahel at [facility] who states she will continue working on placement for Mr. Bustamante this morning. [facility] states they visited Mr. Bustamante yesterday and feel ECF placment is appropriate and [facility] will follow up with [facility] to assure this happens. GABO Dong
[2022-08-10 09:35] LABS: Pathologist Review Reviewed
== END 2022-08-10 02:00 | disposition skilled nursing facility (03) | DRG 177 ==
LOC: ED 10:07 → MS3 08-08 06:03
PROVIDERS: Admitting Provider Internal Medicine; Emergency Provider Emergency Medicine; PCP Internal Medicine; Visit Provider Internal Medicine
DX: U07.1 COVID-19 (principal); Z99.2 Dependence on renal dialysis; N18.6 End stage renal disease; I12.0 Hypertensive chronic kidney disease with stage 5 chronic kidney disease or end stage renal disease; D63.8 Anemia in other chronic diseases classified elsewhere; E78.00 Pure hypercholesterolemia, unspecified; K21.9 Gastro-esophageal reflux disease without esophagitis; Z66 Do not resuscitate; G89.29 Other chronic pain; Z79.899 Other long term (current) drug therapy
CPT/HCPCS: 36415; 71045; 80048; 80053; 81001; 82550; 83735; 84100; 84484; 85025; 85027; 87070; 87205; 87428; 87449; 90937; 93005; 94668; 94762; 96372; 96374; 97110; 97162; 97166; 97530; 97535; 99221; 99252; 99285; A4216; G0257; G0378; G0463

== ENCOUNTER → 2022-08-13 | Outpatient (REF) | payer MEDICARE, SELFPAY ==
[2022-08-13 08:57] LABS: Hematocrit 26.9 % (37-47); Hemoglobin 9.2 g/dL (12.0-15.0); Mean Corp Hgb Conc 34.2 g/dL (32-36); Mean Corpuscular Hgb 32.2 pg (27.0-32.0); Mean Corpuscular Volume 94.1 fL (81-99); Mean Platelet Vol. 12.3 fl (6.2-12.0); Platelet Count 121 K/mm3 (150-450); RBC Distribution Width CV 13.2 % (11.6-14.6); RBC Distribution Width SD 45.9 fl (35.1-43.9); Red Blood Count 2.86 M/mm3 (4.2-5.4); White Blood Count 2.8 K/mm3 (4.4-11.0)
[2022-08-13 09:31] LABS: Anion Gap 7 (5-15); BUN 17 mg/dL (7-18); BUN/Creat Ratio 4.6 RATIO (10-20); Calcium,Total 8.1 mg/dL (8.5-10.1); Chloride 99 mmol/L (98-107); Creatinine, Serum 3.71 mg/dL (0.55-1.02); EST Glomerular Filtration Rate 13 mL/min (>60); Est Glom Filt Rate - Afr Amer 15 mL/min (>60); Glucose 83 mg/dL (74-106); Potassium 3.1 mmol/L (3.5-5.1); Sodium Level 133 mmol/L (136-145)
== END ==
LOC: OLS.SW 05:00
PROVIDERS: PCP Internal Medicine; Visit Provider Family Medicine
DX: R79.9 Abnormal finding of blood chemistry, unspecified (principal); Z13.228 Encounter for screening for other metabolic disorders
CPT/HCPCS: 36415; 80048; 85027

== ENCOUNTER → 2022-08-27 | Outpatient (REF) | payer MEDICARE, SELFPAY ==
[2022-08-27 07:41] LABS: Hematocrit 24.7 % (37-47); Hemoglobin 8.3 g/dL (12.0-15.0); Mean Corp Hgb Conc 33.6 g/dL (32-36); Mean Corpuscular Hgb 32.4 pg (27.0-32.0); Mean Corpuscular Volume 96.5 fL (81-99); Mean Platelet Vol. 14.4 fl (6.2-12.0); POSITIVE COUNT YES; RBC Distribution Width CV 12.9 % (11.6-14.6); RBC Distribution Width SD 45.5 fl (35.1-43.9); Red Blood Count 2.56 M/mm3 (4.2-5.4); White Blood Count 6.4 K/mm3 (4.4-11.0)
[2022-08-27 08:24] LABS: ALB/GLOB Ratio 0.8 RATIO (0.9-2.4); AST(SGOT) 13 U/L (15-37); Alanine Aminotransfer ALT/SGPT 8 U/L (13-56); Alkaline Phosphatase 115 U/L (45-117); Anion Gap 4 (5-15); BUN 29 mg/dL (7-18); Calcium,Total 8.3 mg/dL (8.5-10.1); Chloride 104 mmol/L (98-107); Creatinine, Serum 3.63 mg/dL (0.55-1.02); EST Glomerular Filtration Rate 13 mL/min (>60); Est Glom Filt Rate - Afr Amer 16 mL/min (>60); Globulin 2.6 g/dL (2.2-4.2); Glucose 87 mg/dL (74-106); Magnesium 1.7 mg/dL (1.6-2.6); Potassium 5.5 mmol/L (3.5-5.1); Protein, Total 4.6 g/dL (6.4-8.2); Sodium Level 132 mmol/L (136-145)
[2022-08-27 09:21] LABS: PTHIN 73.9 pg/mL (18.4-80.1)
[2022-08-27 09:40] LABS: Platelet Count 9 K/mm3 (150-450); Scan Indicated on CBC? Y/N YES- FLAGS NOTED
[2022-08-27 09:42] LABS: Differential Comment SCANNED
[2022-08-29 10:46] LABS: Pathologist Review Reviewed
== END ==
LOC: OLS.SW 05:00
PROVIDERS: PCP Internal Medicine; Visit Provider Family Medicine
DX: R79.9 Abnormal finding of blood chemistry, unspecified (principal); Z79.899 Other long term (current) drug therapy
CPT/HCPCS: 36415; 80053; 83735; 83970; 84100; 85027

== ENCOUNTER → 2022-08-29 | Outpatient (CLI) | payer MEDICARE, SELFPAY ==
[2022-08-29 09:19] VITALS: BP 125/66; PULSE 77; RESP 18; TEMP 36.6; O2SAT 100; BMI 26.0
[2022-08-29 10:13] VITALS: BP 127/68; PULSE 77; RESP 16; TEMP 36.4
[2022-08-29 10:30] VITALS: BP 124/58; PULSE 83; RESP 16; TEMP 36.4; O2SAT 95
[2022-08-29 11:01] VITALS: BP 129/68; PULSE 79; RESP 16; TEMP 36.3
[2022-08-29 11:37] VITALS: BP 132/61; PULSE 83; RESP 16; TEMP 36.3; O2SAT 97
== END | disposition home or self-care (01) ==
LOC: MEDOUTP 09:09
PROVIDERS: PCP Internal Medicine; Referring Provider Family Medicine; Visit Provider Family Medicine
DX: D69.6 Thrombocytopenia, unspecified (principal)
CPT/HCPCS: 36430; 86900; 86901; 86965; J7040; P9035; A4216

== ENCOUNTER → 2022-09-03 | Outpatient (REF) | payer MEDICARE, SELFPAY ==
[2022-09-03 08:48] LABS: Hemoglobin 8.3 g/dL (12.0-15.0); Mean Corp Hgb Conc 34.6 g/dL (32-36); Mean Corpuscular Hgb 32.4 pg (27.0-32.0); Mean Corpuscular Volume 93.8 fL (81-99); Mean Platelet Vol. 12.2 fl (6.2-12.0); Platelet Count 112 K/mm3 (150-450); RBC Distribution Width CV 12.6 % (11.6-14.6); RBC Distribution Width SD 43.6 fl (35.1-43.9); Red Blood Count 2.56 M/mm3 (4.2-5.4)
[2022-09-03 09:06] LABS: Anion Gap 5 (5-15); BUN 14 mg/dL (7-18); BUN/Creat Ratio 4.5 RATIO (10-20); Calcium,Total 7.4 mg/dL (8.5-10.1); Chloride 101 mmol/L (98-107); Creatinine, Serum 3.12 mg/dL (0.55-1.02); EST Glomerular Filtration Rate 15 mL/min (>60); Est Glom Filt Rate - Afr Amer 19 mL/min (>60); Glucose 85 mg/dL (74-106); Magnesium 1.4 mg/dL (1.6-2.6); Phosphorus 5.1 mg/dL (2.5-4.9); Potassium 2.8 mmol/L (3.5-5.1); Sodium Level 134 mmol/L (136-145)
== END ==
LOC: OLS.SW 04:00
PROVIDERS: PCP Internal Medicine; Referring Provider Family Medicine; Visit Provider Family Medicine
DX: R79.9 Abnormal finding of blood chemistry, unspecified (principal); Z13.228 Encounter for screening for other metabolic disorders
CPT/HCPCS: 36415; 80048; 83735; 83970; 84100; 85027

== ENCOUNTER → 2022-09-06 | Outpatient (REF) | payer MEDICARE, SELFPAY ==
[2022-09-06 07:56] LABS: Anion Gap 6 (5-15); BUN 13 mg/dL (7-18); BUN/Creat Ratio 6.2 RATIO (10-20); Calcium,Total 8.1 mg/dL (8.5-10.1); Chloride 98 mmol/L (98-107); Creatinine, Serum 2.11 mg/dL (0.55-1.02); EST Glomerular Filtration Rate 24 mL/min (>60); Est Glom Filt Rate - Afr Amer 29 mL/min (>60); Glucose 79 mg/dL (74-106); Phosphorus 1.4 mg/dL (2.5-4.9); Potassium 2.8 mmol/L (3.5-5.1); Sodium Level 134 mmol/L (136-145)
[2022-09-06 08:17] LABS: Vitamin D,25 Hydroxy 132.9 ng/mL
== END ==
LOC: OLS.SW 05:00
PROVIDERS: PCP Internal Medicine; Visit Provider Family Medicine
DX: E55.9 Vitamin D deficiency, unspecified (principal); D63.1 Anemia in chronic kidney disease
CPT/HCPCS: 36415; 80048; 82306; 84100

== ENCOUNTER → 2022-09-10 | Outpatient (REF) | payer MEDICARE, SELFPAY ==
[2022-09-10 08:56] LABS: Hematocrit 25.2 % (37-47); Hemoglobin 8.3 g/dL (12.0-15.0); Mean Corp Hgb Conc 32.9 g/dL (32-36); Mean Corpuscular Hgb 32.5 pg (27.0-32.0); Mean Corpuscular Volume 98.8 fL (81-99); Mean Platelet Vol. 12.4 fl (6.2-12.0); Platelet Count 112 K/mm3 (150-450); RBC Distribution Width CV 13.6 % (11.6-14.6); RBC Distribution Width SD 47.2 fl (35.1-43.9); Red Blood Count 2.55 M/mm3 (4.2-5.4); White Blood Count 3.9 K/mm3 (4.4-11.0)
[2022-09-10 09:27] LABS: Anion Gap 4 (5-15); BUN 22 mg/dL (7-18); BUN/Creat Ratio 6.7 RATIO (10-20); Calcium,Total 8.5 mg/dL (8.5-10.1); Chloride 105 mmol/L (98-107); Creatinine, Serum 3.28 mg/dL (0.55-1.02); EST Glomerular Filtration Rate 14 mL/min (>60); Est Glom Filt Rate - Afr Amer 18 mL/min (>60); Glucose 72 mg/dL (74-106); Magnesium 1.9 mg/dL (1.6-2.6); Phosphorus 2.3 mg/dL (2.5-4.9); Potassium 4.8 mmol/L (3.5-5.1); Sodium Level 133 mmol/L (136-145)
[2022-09-10 11:41] LABS: PTHIN 54.6 pg/mL (18.4-80.1)
== END ==
LOC: OLS.SW 05:00
PROVIDERS: PCP Internal Medicine; Visit Provider Family Medicine
DX: R79.9 Abnormal finding of blood chemistry, unspecified (principal); I15.2 Hypertension secondary to endocrine disorders; Z99.2 Dependence on renal dialysis; Z13.228 Encounter for screening for other metabolic disorders; Z79.899 Other long term (current) drug therapy
CPT/HCPCS: 36415; 80048; 83735; 83970; 84100; 85027

== ENCOUNTER → 2022-09-14 | Outpatient (REF) | payer MEDICARE, SELFPAY ==
[2022-09-14 07:44] LABS: Anion Gap 5 (5-15); BUN 25 mg/dL (7-18); BUN/Creat Ratio 9.2 RATIO (10-20); Calcium,Total 8.5 mg/dL (8.5-10.1); Chloride 101 mmol/L (98-107); Creatinine, Serum 2.71 mg/dL (0.55-1.02); EST Glomerular Filtration Rate 18 mL/min (>60); Est Glom Filt Rate - Afr Amer 22 mL/min (>60); Glucose 80 mg/dL (74-106); Potassium 3.5 mmol/L (3.5-5.1); Sodium Level 133 mmol/L (136-145)
== END ==
LOC: OLS.SW 05:00
PROVIDERS: PCP Internal Medicine; Visit Provider Family Medicine
DX: N18.6 End stage renal disease (principal)
CPT/HCPCS: 36415; 80048

== ENCOUNTER → 2022-09-17 | Outpatient (REF) | payer MEDICARE, SELFPAY ==
[2022-09-17 09:29] LABS: Hematocrit 26.6 % (37-47); Hemoglobin 8.9 g/dL (12.0-15.0); Mean Corp Hgb Conc 33.5 g/dL (32-36); Mean Corpuscular Hgb 32.5 pg (27.0-32.0); Mean Corpuscular Volume 97.1 fL (81-99); Mean Platelet Vol. 11.8 fl (6.2-12.0); Platelet Count 112 K/mm3 (150-450); RBC Distribution Width CV 13.3 % (11.6-14.6); RBC Distribution Width SD 46.9 fl (35.1-43.9); Red Blood Count 2.74 M/mm3 (4.2-5.4); White Blood Count 3.6 K/mm3 (4.4-11.0)
[2022-09-17 09:48] LABS: Anion Gap 7 (5-15); BUN 23 mg/dL (7-18); BUN/Creat Ratio 7.4 RATIO (10-20); Calcium,Total 8.1 mg/dL (8.5-10.1); Chloride 103 mmol/L (98-107); EST Glomerular Filtration Rate 15 mL/min (>60); Est Glom Filt Rate - Afr Amer 19 mL/min (>60); Glucose 84 mg/dL (74-106); Phosphorus 2.6 mg/dL (2.5-4.9); Potassium 3.5 mmol/L (3.5-5.1); Sodium Level 136 mmol/L (136-145)
[2022-09-17 09:53] LABS: PTHIN 82.8 pg/mL (18.4-80.1)
== END ==
LOC: OLS.SW 04:00
PROVIDERS: PCP Internal Medicine; Referring Provider Family Medicine; Visit Provider Family Medicine
DX: R79.89 Other specified abnormal findings of blood chemistry (principal); Z79.899 Other long term (current) drug therapy
CPT/HCPCS: 36415; 80048; 83735; 83970; 84100; 85027

== ENCOUNTER → 2022-09-24 | Outpatient (REF) | payer MEDICARE, SELFPAY ==
[2022-09-24 09:28] LABS: Hematocrit 29.2 % (37-47); Hemoglobin 9.7 g/dL (12.0-15.0); Mean Corp Hgb Conc 33.2 g/dL (32-36); Mean Corpuscular Hgb 31.5 pg (27.0-32.0); Mean Corpuscular Volume 94.8 fL (81-99); Platelet Count 193 K/mm3 (150-450); Red Blood Count 3.08 M/mm3 (4.2-5.4); White Blood Count 5.8 K/mm3 (4.4-11.0)
[2022-09-24 09:44] LABS: Anion Gap 9 (5-15); BUN 36 mg/dL (7-18); BUN/Creat Ratio 10.6 RATIO (10-20); Calcium,Total 8.8 mg/dL (8.5-10.1); Chloride 99 mmol/L (98-107); Creatinine, Serum 3.41 mg/dL (0.55-1.02); EST Glomerular Filtration Rate 14 mL/min (>60); Est Glom Filt Rate - Afr Amer 17 mL/min (>60); Glucose 84 mg/dL (74-106); Magnesium 2.2 mg/dL (1.6-2.6); Phosphorus 2.6 mg/dL (2.5-4.9); Sodium Level 133 mmol/L (136-145)
[2022-09-24 10:15] LABS: PTHIN 91.7 pg/mL (18.4-80.1)
== END ==
LOC: OLS.SW 05:00
PROVIDERS: PCP Internal Medicine; Visit Provider Family Medicine
DX: R79.9 Abnormal finding of blood chemistry, unspecified (principal); Z13.228 Encounter for screening for other metabolic disorders; Z79.899 Other long term (current) drug therapy
CPT/HCPCS: 36415; 80048; 83735; 83970; 84100; 85027

== ENCOUNTER → 2022-10-01 | Outpatient (REF) | payer MEDICARE, SELFPAY ==
[2022-10-01 09:08] LABS: Hematocrit 27.1 % (37-47); Hemoglobin 8.8 g/dL (12.0-15.0); Mean Corp Hgb Conc 32.5 g/dL (32-36); Mean Corpuscular Hgb 31.8 pg (27.0-32.0); Mean Corpuscular Volume 97.8 fL (81-99); Mean Platelet Vol. 10.7 fl (6.2-12.0); Platelet Count 236 K/mm3 (150-450); RBC Distribution Width CV 13.1 % (11.6-14.6); RBC Distribution Width SD 46.1 fl (35.1-43.9); Red Blood Count 2.77 M/mm3 (4.2-5.4); White Blood Count 6.9 K/mm3 (4.4-11.0)
[2022-10-01 09:30] LABS: Anion Gap 9 (5-15); BUN 30 mg/dL (7-18); BUN/Creat Ratio 9.6 RATIO (10-20); Calcium,Total 8.4 mg/dL (8.5-10.1); Chloride 102 mmol/L (98-107); Creatinine, Serum 3.14 mg/dL (0.55-1.02); EST Glomerular Filtration Rate 15 mL/min (>60); Est Glom Filt Rate - Afr Amer 18 mL/min (>60); Glucose 83 mg/dL (74-106); Magnesium 1.8 mg/dL (1.6-2.6); Phosphorus 2.3 mg/dL (2.5-4.9); Potassium 3.6 mmol/L (3.5-5.1); Sodium Level 137 mmol/L (136-145)
== END ==
LOC: OLS.SW 05:00
PROVIDERS: PCP Internal Medicine; Visit Provider Family Medicine
DX: R79.9 Abnormal finding of blood chemistry, unspecified (principal); Z13.228 Encounter for screening for other metabolic disorders; Z79.899 Other long term (current) drug therapy
CPT/HCPCS: 36415; 80048; 83735; 83970; 84100; 85027

== ENCOUNTER → 2022-10-08 | Outpatient (REF) | payer MEDICARE, SELFPAY ==
[2022-10-08 09:48] LABS: Hematocrit 26.7 % (37-47); Hemoglobin 8.4 g/dL (12.0-15.0); Mean Corp Hgb Conc 31.5 g/dL (32-36); Mean Corpuscular Hgb 31.3 pg (27.0-32.0); Mean Corpuscular Volume 99.6 fL (81-99); Mean Platelet Vol. 11.4 fl (6.2-12.0); Platelet Count 133 K/mm3 (150-450); RBC Distribution Width CV 13.6 % (11.6-14.6); RBC Distribution Width SD 49.6 fl (35.1-43.9); Red Blood Count 2.68 M/mm3 (4.2-5.4); White Blood Count 5.5 K/mm3 (4.4-11.0)
[2022-10-08 09:56] LABS: Anion Gap 8 (5-15); BUN 29 mg/dL (7-18); BUN/Creat Ratio 9.6 RATIO (10-20); Calcium,Total 8.2 mg/dL (8.5-10.1); Chloride 104 mmol/L (98-107); Creatinine, Serum 3.02 mg/dL (0.55-1.02); EST Glomerular Filtration Rate 16 mL/min (>60); Est Glom Filt Rate - Afr Amer 19 mL/min (>60); Glucose 75 mg/dL (74-106); Magnesium 2.3 mg/dL (1.6-2.6); PTHIN 104.7 pg/mL (18.4-80.1); Phosphorus 3.4 mg/dL (2.5-4.9); Potassium 4.1 mmol/L (3.5-5.1); Sodium Level 135 mmol/L (136-145)
== END ==
LOC: OLS.SW 04:00
PROVIDERS: PCP Internal Medicine; Visit Provider Family Medicine
DX: I12.0 Hypertensive chronic kidney disease with stage 5 chronic kidney disease or end stage renal disease (principal); N18.6 End stage renal disease; E46 Unspecified protein-calorie malnutrition; D63.1 Anemia in chronic kidney disease; R79.9 Abnormal finding of blood chemistry, unspecified; Z86.12 Personal history of poliomyelitis; Z99.2 Dependence on renal dialysis; Z13.228 Encounter for screening for other metabolic disorders
CPT/HCPCS: 36415; 80048; 83735; 83970; 84100; 85027

== ENCOUNTER → 2022-10-16 | Outpatient (REF) | payer MEDICARE, SELFPAY ==
[2022-10-16 08:01] LABS: Hemoglobin 8.5 g/dL (12.0-15.0); Mean Corp Hgb Conc 32.7 g/dL (32-36); Mean Corpuscular Hgb 31.4 pg (27.0-32.0); Mean Corpuscular Volume 95.9 fL (81-99); Mean Platelet Vol. 11.4 fl (6.2-12.0); Platelet Count 143 K/mm3 (150-450); RBC Distribution Width CV 13.2 % (11.6-14.6); RBC Distribution Width SD 46.8 fl (35.1-43.9); Red Blood Count 2.71 M/mm3 (4.2-5.4); White Blood Count 3.6 K/mm3 (4.4-11.0)
[2022-10-16 08:14] LABS: Anion Gap 8 (5-15); BUN 16 mg/dL (7-18); BUN/Creat Ratio 6.5 RATIO (10-20); Calcium,Total 8.4 mg/dL (8.5-10.1); Chloride 98 mmol/L (98-107); Creatinine, Serum 2.48 mg/dL (0.55-1.02); EST Glomerular Filtration Rate 20 mL/min (>60); Est Glom Filt Rate - Afr Amer 24 mL/min (>60); Glucose 83 mg/dL (74-106); Phosphorus 1.9 mg/dL (2.5-4.9); Potassium 3.5 mmol/L (3.5-5.1); Sodium Level 135 mmol/L (136-145)
[2022-10-16 08:46] LABS: PTHIN 52.3 pg/mL (18.4-80.1)
== END ==
LOC: OLS.SW 05:00
PROVIDERS: PCP Internal Medicine; Visit Provider Family Medicine
DX: R79.9 Abnormal finding of blood chemistry, unspecified (principal); Z13.228 Encounter for screening for other metabolic disorders
CPT/HCPCS: 36415; 80048; 83735; 83970; 84100; 85027

== ENCOUNTER → 2022-10-23 05:00 | Outpatient (REF) | payer MEDICARE, SELFPAY ==
[2022-10-23 07:01] LABS: Hemoglobin 8.4 g/dL (12.0-15.0); Mean Corp Hgb Conc 33.6 g/dL (32-36); Mean Corpuscular Hgb 31.9 pg (27.0-32.0); Mean Corpuscular Volume 95.1 fL (81-99); Mean Platelet Vol. 10.9 fl (6.2-12.0); Platelet Count 202 K/mm3 (150-450); RBC Distribution Width CV 12.9 % (11.6-14.6); RBC Distribution Width SD 44.6 fl (35.1-43.9); Red Blood Count 2.63 M/mm3 (4.2-5.4); White Blood Count 3.6 K/mm3 (4.4-11.0)
[2022-10-23 07:17] LABS: Anion Gap 6 (5-15); BUN 15 mg/dL (7-18); BUN/Creat Ratio 6.2 RATIO (10-20); Calcium,Total 8.3 mg/dL (8.5-10.1); Chloride 101 mmol/L (98-107); EST Glomerular Filtration Rate 21 mL/min (>60); Est Glom Filt Rate - Afr Amer 25 mL/min (>60); Glucose 81 mg/dL (74-106); Magnesium 2.1 mg/dL (1.6-2.6); Phosphorus 2.4 mg/dL (2.5-4.9); Potassium 3.4 mmol/L (3.5-5.1); Sodium Level 135 mmol/L (136-145)
[2022-10-23 09:00] LABS: PTHIN 85.4 pg/mL (18.4-80.1)
== END ==
LOC: OLS.SW 05:00
PROVIDERS: PCP Internal Medicine; Visit Provider Family Medicine
DX: R79.9 Abnormal finding of blood chemistry, unspecified (principal); Z13.228 Encounter for screening for other metabolic disorders
CPT/HCPCS: 36415; 80048; 83735; 83970; 84100; 85027

== ENCOUNTER → 2022-10-30 05:00 | Outpatient (REF) | payer MEDICARE, SELFPAY ==
[2022-10-30 08:57] LABS: Hematocrit 26.9 % (37-47); Hemoglobin 8.9 g/dL (12.0-15.0); Mean Corp Hgb Conc 33.1 g/dL (32-36); Mean Corpuscular Hgb 31.6 pg (27.0-32.0); Mean Corpuscular Volume 95.4 fL (81-99); Mean Platelet Vol. 11.5 fl (6.2-12.0); Platelet Count 181 K/mm3 (150-450); RBC Distribution Width CV 12.8 % (11.6-14.6); RBC Distribution Width SD 44.9 fl (35.1-43.9); Red Blood Count 2.82 M/mm3 (4.2-5.4); White Blood Count 5.6 K/mm3 (4.4-11.0)
[2022-10-30 09:12] LABS: Anion Gap 8 (5-15); BUN 17 mg/dL (7-18); BUN/Creat Ratio 6.8 RATIO (10-20); Calcium,Total 8.7 mg/dL (8.5-10.1); Chloride 101 mmol/L (98-107); EST Glomerular Filtration Rate 20 mL/min (>60); Est Glom Filt Rate - Afr Amer 24 mL/min (>60); Glucose 84 mg/dL (74-106); Magnesium 1.9 mg/dL (1.6-2.6); Phosphorus 2.7 mg/dL (2.5-4.9); Potassium 3.7 mmol/L (3.5-5.1); Sodium Level 137 mmol/L (136-145)
[2022-10-30 09:21] LABS: PTHIN 111.7 pg/mL (18.4-80.1)
== END ==
LOC: OLS.SW 05:00
PROVIDERS: PCP Internal Medicine; Visit Provider Family Medicine
DX: Z13.228 Encounter for screening for other metabolic disorders (principal); R79.9 Abnormal finding of blood chemistry, unspecified
CPT/HCPCS: 36415; 80048; 83735; 83970; 84100; 85027

== ENCOUNTER → 2022-11-06 | Outpatient (REF) | payer MEDICARE, SELFPAY ==
[2022-11-06 08:13] LABS: Hematocrit 23.4 % (37-47); Hemoglobin 7.8 g/dL (12.0-15.0); Mean Corp Hgb Conc 33.3 g/dL (32-36); Mean Corpuscular Hgb 31.3 pg (27.0-32.0); Mean Platelet Vol. 11.2 fl (6.2-12.0); Platelet Count 134 K/mm3 (150-450); RBC Distribution Width CV 12.8 % (11.6-14.6); RBC Distribution Width SD 43.8 fl (35.1-43.9); Red Blood Count 2.49 M/mm3 (4.2-5.4); White Blood Count 4.9 K/mm3 (4.4-11.0)
[2022-11-06 08:24] LABS: Anion Gap 5 (5-15); BUN 16 mg/dL (7-18); BUN/Creat Ratio 6.4 RATIO (10-20); Calcium,Total 8.3 mg/dL (8.5-10.1); Chloride 102 mmol/L (98-107); Creatinine, Serum 2.51 mg/dL (0.55-1.02); EST Glomerular Filtration Rate 20 mL/min (>60); Est Glom Filt Rate - Afr Amer 24 mL/min (>60); Glucose 88 mg/dL (74-106); Magnesium 1.6 mg/dL (1.6-2.6); Phosphorus 2.4 mg/dL (2.5-4.9); Potassium 3.3 mmol/L (3.5-5.1); Sodium Level 138 mmol/L (136-145)
== END ==
LOC: OLS.SW 05:00
PROVIDERS: PCP Internal Medicine; Referring Provider Family Medicine; Visit Provider Family Medicine
DX: Z13.228 Encounter for screening for other metabolic disorders (principal); R79.9 Abnormal finding of blood chemistry, unspecified
CPT/HCPCS: 36415; 80048; 83735; 83970; 84100; 85027

== ENCOUNTER → 2022-11-13 | Outpatient (REF) | payer MEDICARE, SELFPAY ==
[2022-11-13 09:49] LABS: Anion Gap 7 (5-15); BUN 12 mg/dL (7-18); BUN/Creat Ratio 4.3 RATIO (10-20); Calcium,Total 8.8 mg/dL (8.5-10.1); Chloride 99 mmol/L (98-107); Creatinine, Serum 2.82 mg/dL (0.55-1.02); EST Glomerular Filtration Rate 17 mL/min (>60); Est Glom Filt Rate - Afr Amer 21 mL/min (>60); Glucose 81 mg/dL (74-106); Phosphorus 2.4 mg/dL (2.5-4.9); Sodium Level 136 mmol/L (136-145)
[2022-11-13 09:55] LABS: Hematocrit 24.3 % (37-47); Hemoglobin 8.3 g/dL (12.0-15.0); Mean Corp Hgb Conc 34.2 g/dL (32-36); Mean Corpuscular Volume 93.8 fL (81-99); Mean Platelet Vol. 11.8 fl (6.2-12.0); Platelet Count 123 K/mm3 (150-450); RBC Distribution Width CV 12.6 % (11.6-14.6); RBC Distribution Width SD 43.1 fl (35.1-43.9); Red Blood Count 2.59 M/mm3 (4.2-5.4); White Blood Count 3.3 K/mm3 (4.4-11.0)
[2022-11-13 09:56] LABS: PTHIN 79.1 pg/mL (18.4-80.1)
== END ==
LOC: OLS.SW 05:00
PROVIDERS: PCP Internal Medicine; Visit Provider Family Medicine
DX: Z13.228 Encounter for screening for other metabolic disorders (principal); R79.9 Abnormal finding of blood chemistry, unspecified
CPT/HCPCS: 36415; 80048; 83735; 83970; 84100; 85027

== ENCOUNTER → 2022-11-21 05:00 | Outpatient (REF) | payer MEDICARE, SELFPAY ==
[2022-11-21 09:41] LABS: Anion Gap 5 (5-15); BUN 10 mg/dL (7-18); BUN/Creat Ratio 3.8 RATIO (10-20); Calcium,Total 8.4 mg/dL (8.5-10.1); Chloride 101 mmol/L (98-107); Creatinine, Serum 2.61 mg/dL (0.55-1.02); EST Glomerular Filtration Rate 19 mL/min (>60); Est Glom Filt Rate - Afr Amer 23 mL/min (>60); Glucose 87 mg/dL (74-106); Potassium 3.7 mmol/L (3.5-5.1); Sodium Level 135 mmol/L (136-145)
[2022-11-21 09:43] LABS: PTHIN 82.4 pg/mL (18.4-80.1)
== END ==
LOC: OLS.SW 05:00
PROVIDERS: PCP Internal Medicine; Visit Provider Family Medicine
DX: Z13.228 Encounter for screening for other metabolic disorders (principal); R79.9 Abnormal finding of blood chemistry, unspecified
CPT/HCPCS: 36415; 80048; 83735; 83970; 84100

== ENCOUNTER → 2022-11-28 05:00 | Outpatient (REF) | payer MEDICARE, SELFPAY ==
[2022-11-28 09:27] LABS: Hematocrit 29.7 % (37-47); Hemoglobin 9.7 g/dL (12.0-15.0); Mean Corp Hgb Conc 32.7 g/dL (32-36); Mean Corpuscular Hgb 31.2 pg (27.0-32.0); Mean Corpuscular Volume 95.5 fL (81-99); Mean Platelet Vol. 11.9 fl (6.2-12.0); POSITIVE COUNT YES; Platelet Count 94 K/mm3 (150-450); RBC Distribution Width CV 13.1 % (11.6-14.6); RBC Distribution Width SD 45.1 fl (35.1-43.9); Red Blood Count 3.11 M/mm3 (4.2-5.4); White Blood Count 4.4 K/mm3 (4.4-11.0)
[2022-11-28 09:34] LABS: Scan Indicated on CBC? Y/N NO
[2022-11-28 09:42] LABS: Anion Gap 3 (5-15); BUN 12 mg/dL (7-18); Calcium,Total 8.8 mg/dL (8.5-10.1); Chloride 102 mmol/L (98-107); Creatinine, Serum 2.41 mg/dL (0.55-1.02); EST Glomerular Filtration Rate 21 mL/min (>60); Est Glom Filt Rate - Afr Amer 25 mL/min (>60); Glucose 85 mg/dL (74-106); Phosphorus 2.8 mg/dL (2.5-4.9); Potassium 4.3 mmol/L (3.5-5.1); Sodium Level 135 mmol/L (136-145)
[2022-11-28 10:00] LABS: PTHIN 143.1 pg/mL (18.4-80.1)
== END ==
LOC: OLS.SW 05:00
PROVIDERS: PCP Internal Medicine; Visit Provider Family Medicine
DX: R79.9 Abnormal finding of blood chemistry, unspecified (principal); Z13.228 Encounter for screening for other metabolic disorders
CPT/HCPCS: 36415; 80048; 83735; 83970; 84100; 85027

== ENCOUNTER → 2022-12-05 | Outpatient (REF) | payer MEDICARE, SELFPAY ==
[2022-12-05 09:55] LABS: Hematocrit 28.9 % (37-47); Hemoglobin 9.2 g/dL (12.0-15.0); Mean Corp Hgb Conc 31.8 g/dL (32-36); Mean Corpuscular Hgb 30.3 pg (27.0-32.0); Mean Corpuscular Volume 95.1 fL (81-99); Mean Platelet Vol. 11.5 fl (6.2-12.0); Platelet Count 124 K/mm3 (150-450); RBC Distribution Width CV 12.7 % (11.6-14.6); RBC Distribution Width SD 44.5 fl (35.1-43.9); Red Blood Count 3.04 M/mm3 (4.2-5.4); White Blood Count 3.8 K/mm3 (4.4-11.0)
[2022-12-05 10:07] LABS: Anion Gap 5 (5-15); BUN 12 mg/dL (7-18); BUN/Creat Ratio 5.3 RATIO (10-20); Calcium,Total 8.5 mg/dL (8.5-10.1); Chloride 102 mmol/L (98-107); Creatinine, Serum 2.28 mg/dL (0.55-1.02); EST Glomerular Filtration Rate 22 mL/min (>60); Est Glom Filt Rate - Afr Amer 27 mL/min (>60); Glucose 79 mg/dL (74-106); Phosphorus 2.8 mg/dL (2.5-4.9); Sodium Level 136 mmol/L (136-145)
[2022-12-05 10:09] LABS: Vitamin D,25 Hydroxy 79.6 ng/mL
[2022-12-05 10:31] LABS: PTHIN 95.8 pg/mL (18.4-80.1)
== END ==
LOC: OLS.SW 05:00
PROVIDERS: PCP Internal Medicine; Visit Provider Family Medicine
DX: Z13.228 Encounter for screening for other metabolic disorders (principal); R79.9 Abnormal finding of blood chemistry, unspecified
CPT/HCPCS: 36415; 80048; 82306; 83735; 83970; 84100; 85027